=== PATIENT | female | born 1960 | race American Indian/Alaskan Native ===

== ENCOUNTER 2018-07-12 13:50 | Inpatient (IN) | payer OTHER ==
[~2018-07-12 13:50] MED LIST: levoFLOXacin 750 mg in D5W 750 MG/150 ML BAG IVPB ONE
[2018-07-12] MEDS ORDERED: Albuterol-Ipratrop 3 mg / 0.5 (3 ml) UD INH STA (14:29)
--- NOTE | 2018-07-12 14:50 | ED PDOC ---
HPI: General Adult Time Seen by Provider: 07/12/18 13:59 Chief Complaint (Nursing): Shortness Of Breath Chief Complaint (Provider): Medication Refill History Per: EMS Onset/Duration Of Symptoms: Days (x 1) Current Symptoms Are (Timing): Still Present Additional Complaint(s): 58 year old female with a history of CVA, hypertension and anemia presents to the ED via EMS. As per EMS, patient ran out of her albuterol prompting call to EMS. In the ED, patient is arousable to verbal stimuli, but is refusing to answer any questions. Offers no complaints. Pt administered nebulizer treatments and Solumedrol via EMS en route. PMD: none provided e Past Medical History Reviewed: Historical Data, Nursing Documentation, Vital Signs Vital Signs: Last Vital Signs Temp 100.7 F H 07/12/18 14:20 Pulse 96 H 07/12/18 13:53 Resp 16 07/12/18 14:25 BP 129/74 07/12/18 13:53 Pulse Ox 95 07/12/18 14:25 - Medical History PMH: Anemia, Arthritis, Asthma, HTN Denies: Chronic Kidney Disease - Surgical History Surgical History: CABG, Cholecystectomy - Family History Family History: States: Unknown Family Hx - Home Medications Home Medications: Ambulatory Orders Medication Instructions Recorded Aspirin [Aspirin Chewable] 81 mg PO DAILY #0 chew 12/10/15 Baclofen [Lioresal] 20 mg PO TID #0 tab 12/10/15 Gabapentin [Neurontin] 300 mg PO TID #0 cap 12/10/15 Losartan [Cozaar] 25 mg PO DAILY #0 tab 12/10/15 Rosuvastatin Calcium [Crestor] 20 mg PO HS #0 tab 12/10/15 fentaNYL 75 mcg/hr [Duragesic 1 patch TD Q72H #0 patch 12/10/15 Patch 75 mcg/hr] oxyCODONE/Acetaminophen [Percocet 1 tab PO Q8H PRN #0 tab 12/10/15 5/325 mg Tab] - Allergies Allergies/Adverse Reactions: Allergies Allergy/AdvReac Type Severity Reaction Status Date / Time Penicillins Allergy RASH Verified 07/12/18 13:53 latex AdvReac RASH Verified 07/12/18 13:53 Review of Systems Review Of Systems: ROS cannot be obtained secondary to pt's inabilty to answer questions. (patient is uncooperative) Physical Exam - Reviewed Nursing Documentation Reviewed: Yes - Physical Exam Appears: Positive for: No Acute Distress (febrile) Head Exam: Positive for: ATRAUMATIC, NORMAL INSPECTION, NORMOCEPHALIC Skin: Positive for: Normal Color, Warm, Dry. Negative for: Rash Eye Exam: Positive for: EOMI, Normal appearance, PERRL Cardiovascular/Chest: Positive for: Murmur (otherwise regular rate) Respiratory: Positive for: Wheezing (bilateral). Negative for: Respiratory Distress Gastrointestinal/Abdominal: Positive for: Normal Exam, Soft. Negative for: Tenderness Back: Positive for: Normal Inspection. Negative for: L CVA Tenderness, R CVA Tenderness Extremity: Positive for: Normal ROM (upper and lower extremities). Negative for: Deformity, Swelling Neurologic/Psych: Positive for: Alert, Oriented. Negative for: Motor/Sensory Deficits - Laboratory Results Result Diagrams: 07/12/18 15:10 07/12/18 15:10 - ECG ECG Rhythm: Positive for: Atrial Flutter Rate: 91 O2 Sat by Pulse Oximetry: 95 (RA) Pulse Ox Interpretation: Normal Medical Decision Making Medical Decision Makin:59 Impression: fever, possible asthma exacerbation, pneumonia Initial Plan: --VBG --CMP --CBC --CXR --EKG --Urine dip --Duoneb 3 ml INH --Peak flow pre/post --Acetaminophen 650 mg PO --Blood cx --Urine cx --UA Accession No. : [id number] Patient Name / ID : BROWN ALSTON / [id number] Exam Date : 07/12/2018 13:52:33 ( Approved ) Study Comment : Sex / Age : F / 58Y Creator : Cyrus Gutierrez MD Dictator : Cyrus Gutierrez MD Ballet Teacher : Marketing Operations Analyst : Cyrus Gutierrez MD Approver2 : Report Date : 07/12/2018 14:58:29 My Comment : Date of service: 07/12/2018 PROCEDURE: CHEST RADIOGRAPH, 1 VIEW HISTORY: SOB, fever COMPARISON: None available. FINDINGS: LUNGS: Patchy diffuse bilateral pulmonary opacities suspicious for bilateral pneumonia versus pulmonary edema no perihilar distribution. PLEURA: Small right pleural effusion. No evidence of left pleural effusion. CARDIOVASCULAR: Cardiac valvular replacement noted. Normal heart size. There is atherosclerotic calcification of the thoracic aorta. Mild congestive change. OSSEOUS STRUCTURES: No significant abnormalities. VISUALIZED UPPER ABDOMEN: Normal. OTHER FINDINGS: None. IMPRESSION: Patchy diffuse bilateral pulmonary opacity. Possible bilateral pneumonia versus pulmonary edema. Small right pleural effusion. Cardiac valvular replacement. Scribe Attestation: Documented by Jennifer Sosa, acting as a scribe for Nubia Martinez MD Provider Scribe Attestation: All medical record entries made by the Scribe were at my direction and personally dictated by me. I have reviewed the chart and agree that the record accurately reflects my personal performance of the history, physical exam, medical decision making, and the department course for this patient. I have also personally directed, reviewed, and agree with the discharge instructions and disposition. Disposition - Clinical Impression Clinical Impression: Pneumonia, Asthma exacerbation - Patient ED Disposition Is Patient to be Admitted: Yes - Disposition Disposition Time: 16:29 Condition: STABLE Forms: [employer] (Surinamese) - Pt Status Changed To: Hospital Disposition Of: Inpatient - Admit Certification Admit to Inpatient:: After my assessment, the patient will require hospitalization for at least two midnights. This is because of the severity of symptoms shown, intensity of services needed, and/or the medical risk in this patient being treated as an outpatient. - POA Present On Arrival: None
--- NOTE | 2018-07-12 15:02 | RAD ---
Date of service: 07/12/2018 PROCEDURE: CHEST RADIOGRAPH, 1 VIEW HISTORY: SOB, fever COMPARISON: None available. FINDINGS: LUNGS: Patchy diffuse bilateral pulmonary opacities suspicious for bilateral pneumonia versus pulmonary edema no perihilar distribution. PLEURA: Small right pleural effusion. No evidence of left pleural effusion. CARDIOVASCULAR: Cardiac valvular replacement noted. Normal heart size. There is atherosclerotic calcification of the thoracic aorta. Mild congestive change. OSSEOUS STRUCTURES: No significant abnormalities. VISUALIZED UPPER ABDOMEN: Normal. OTHER FINDINGS: None. IMPRESSION: Patchy diffuse bilateral pulmonary opacity. Possible bilateral pneumonia versus pulmonary edema. Small right pleural effusion. Cardiac valvular replacement.
[2018-07-12] MEDS ORDERED: Albuterol-Ipratrop 3 mg / 0.5 (3 ml) UD ONE (15:04)
[2018-07-12 15:18] LABS: VENOUS BLOOD GAS BASE EXCESS 0.8 mmol/L (0.0-2.0); VENOUS BLOOD GAS PCO2 58 mmHg (40-60); VENOUS BLOOD GAS PO2 47 mm/Hg (30-55)
[2018-07-12 15:18] LABS: BASO % 0.1 % (0.0-2.0); EOS % 0.1 % (0.0-4.0); HEMOGLOBIN 10.5 g/dL (12.0-16.0); LYMPH # 0.3 K/uL (1.0-4.3); MEAN CELL VOLUME 76.6 fl (81.0-99.0); MEAN CORPUSCULAR HEMOGLOBIN 24.1 pg (27.0-31.0); MEAN CORPUSCULAR HGB CONC 31.5 g/dL (33.0-37.0); MEAN PLATELET VOLUME 9.5 fl (7.2-11.7); MONO # 0.4 K/uL (0.0-0.8); MONO % 2.2 % (0.0-10.0); NEUT # 15.7 K/uL (1.8-7.0); NEUT % 95.6 % (50.0-75.0); PLATELET COUNT 221 K/uL (130-400); RBC 4.37 Mil/uL (3.80-5.20); RED CELL DISTRIBUTION WIDTH 19.2 % (11.5-14.5); WHITE BLOOD COUNT 16.5 K/uL (4.8-10.8)
[2018-07-12] MEDS ORDERED: levoFLOXacin 750 mg in D5W 150 ML BAG IVPB STA (15:22)
[2018-07-12 15:30] LABS: ALB/GLOB RATIO 0.9 (1.0-2.1); BLOOD UREA NITROGEN 12 mg/dl (7-17); CALCIUM 8.6 mg/dL (8.4-10.2); GFR NON-AFRICAN AMERICAN > 60
[2018-07-12 15:59] LABS: ALT/SGPT < 6 U/L (9-52); AST/SGOT 26 U/L (14-36)
[2018-07-12] MEDS ORDERED: levoFLOXacin 750 mg in D5W 750 MG/150 ML BAG IVPB ONE ×2 (16:54→17:00)
[2018-07-12 18:31] LABS: BANDS 2 % (0-2); LYMPHOCYTE 4 % (20-50); MONOCYTE 3 % (0-10); NEUTROPHIL 91 % (42-75); TOTAL CELLS COUNTED 100
[2018-07-12 18:32] LABS: ANISOCYTOSIS MODERATE; HYPOCHROMIC SLIGHT; MICROCYTOSIS MODERATE; OVALOCYTES SLIGHT; PLATELET ESTIMATE NORMAL (NORMAL); POIKILOCYTOSIS SLIGHT
[2018-07-12 18:40] LABS: VENOUS BLOOD GAS BASE EXCESS -1.4 mmol/L (0.0-2.0); VENOUS BLOOD GAS PCO2 49 mmHg (40-60); VENOUS BLOOD GAS PO2 50 mm/Hg (30-55); VENOUS BLOOD PH 7.32 (7.32-7.43)
[2018-07-12] MEDS ORDERED: Insulin Regular 100 units/ml IV STA (18:41)
[2018-07-12] MEDS ORDERED: Ergocalciferol 50,000 Intl Units Cap PO SCH (21:15)
--- NOTE | 2018-07-13 00:57 | CARD ---
APPROVED REPORT Date of service: 07/12/2018 EKG Measurement Heart [id number] <Conclusion> Atrial flutter with variable AV block Rightward axis Nonspecific ST and T wave abnormality Abnormal ECG
[2018-07-13] MEDS: Albuterol-Ipratrop 3 mg / 0.5 (3 ml) UD INH SCH ×4 (01:00→19:35)
[2018-07-13 05:24] LABS: HEMOGLOBIN 10.1 g/dL (12.0-16.0); MEAN CORPUSCULAR HEMOGLOBIN 24.4 pg (27.0-31.0); MEAN CORPUSCULAR HGB CONC 31.7 g/dL (33.0-37.0); RBC 4.12 Mil/uL (3.80-5.20); RED CELL DISTRIBUTION WIDTH 19.7 % (11.5-14.5); WHITE BLOOD COUNT 10.9 K/uL (4.8-10.8)
[2018-07-13 05:41] LABS: BLOOD UREA NITROGEN 13 mg/dl (7-17); CALCIUM 9.1 mg/dL (8.4-10.2); GFR NON-AFRICAN AMERICAN > 60
[2018-07-13] MEDS ORDERED: Patient's Own Med (Metformin Er [Glucophage Xr] 500 mg) PO SCH (09:00)
[2018-07-13] MEDS ORDERED: Oxycodone/Acetaminophen 5/325 mg Tab PO PRN (09:38)
[2018-07-13] MEDS: Potassium Chloride 10 mEq ER Tab PO SCH (10:00)
[2018-07-13] MEDS: Enoxaparin 40 mg Syringe SC SCH (10:03)
[2018-07-13] MEDS: levoFLOXacin 500 mg in D5W 500 MG/100 ML BAG IVPB SCH (10:39)
[2018-07-13 15:07] LABS: SQUAMOUS EPITHIAL 3 /hpf (0-5); URINE BACTERIA FEW (<OCC); URINE BILIRUBIN NEGATIVE (NEGATIVE); URINE BLOOD NEGATIVE (NEGATIVE); URINE CLARITY SLIGHTY-CLOUDY (Clear); URINE COLOR YELLOW (YELLOW); URINE GLUCOSE (UA) 50 mg/dL (NEGATIVE); URINE LEUKOCYTE ESTERASE NEG Leu/uL (Negative); URINE PROTEIN 30 mg/dL (NEGATIVE)
--- NOTE | 2018-07-13 21:34 | HP ---
ADMITTING HISTORY AND PHYSICAL HISTORY OF PRESENT ILLNESS: Ms. Landis is a 58-year-old female who was admitted via the emergency room. The patient was brought in by EMS. She was complaining of some shortness of breath and chest tightness. She indicates that she has been sick for few days prior to presentation. Lives at home with her son, but did not want to tell her son that she was sick. Also had visited her primary care physician recently in [place], but then was not ill. PAST MEDICAL HISTORY: She has a past medical history of anemia, arthritis, asthma, hypertension, and status post cerebrovascular accident with right-sided hemiparesis. She also has history of coronary artery bypass graft and cholecystectomy. FAMILY HISTORY: Unremarkable. PHYSICAL EXAMINATION: GENERAL: The patient is alert, oriented to person, place, and time. VITAL SIGNS: Blood pressure 129/74, pulse of 96, respiratory rate 16. She is afebrile at present but temperature maximum on admission was 100.7 degrees Fahrenheit. O2 saturation is 95% on nasal cannula oxygen. SKIN: Shows fair turgor. HEENT: Pupils are equal and reactive to light and accommodation. Mouth shows fair hygiene. LUNGS: Bilateral mild wheezing and basilar rales. There is scar present of coronary artery bypass graft to the anterior chest wall. HEART: Regular. BREASTS: Normal. ABDOMEN: Soft, nontender. No organomegaly. EXTREMITIES: Show no edema or cyanosis. Has complete right-sided hemiparesis. CENTRAL NERVOUS SYSTEM: The patient is alert and oriented x3. Except for the right hemiparesis, no gross deficits. LABORATORY DATA: Remarkable for chest x-ray showing bilateral pulmonary infiltrates. WBC 16.5, hemoglobin 10.5, platelet count 221,000. Sodium 135, potassium 4.2, BUN 12, creatinine 0.6, serum glucose 293. Arterial blood gas; pH 7.30, pCO2 of 47, O2 saturation 92.6. Lactate 2.5, repeat 2.2. IMPRESSION: Bilateral pneumonia, probably community acquired; history of cerebrovascular accident; history of diabetes mellitus, poorly controlled, type 2; history of hypertension; history of asthma. PLAN: Intravenous antibiotics, septic workup. We will repeat the lactate level to evaluate for sepsis. Physical therapy evaluation for discharge planning and physical therapy. We will continue therapy as ordered. Monitor blood sugar closely. Further therapy will depend on findings. Saad Grier MD [facility] # [id number]
[2018-07-14 00:21] VITALS: RESP 18
[2018-07-14] MEDS: Albuterol-Ipratrop 3 mg / 0.5 (3 ml) UD INH SCH ×3 (02:09→13:33)
[2018-07-14] MEDS: Enoxaparin 40 mg Syringe SC SCH (09:44)
[2018-07-14] MEDS: Potassium Chloride 10 mEq ER Tab PO SCH (09:47)
[2018-07-14] MEDS: levoFLOXacin 500 mg in D5W 500 MG/100 ML BAG IVPB SCH (09:49)
--- NOTE | 2018-07-14 11:26 | CP.PCM.DIS ---
Provider - Provider Date of Admission: 07/12/18 16:24 Attending physician: Saad Grier MD Time Spent in preparation of Discharge (in minutes): 35 Diagnosis - Discharge Diagnosis (1) History of CVA (cerebrovascular accident) Status: Chronic Comment: R HEMIPLEGIA PERSISTS. WILL NEED OUT PT PHYSICAL AND OCCUPATIONAL THERAPY. REFUSES SUBACUTE CARE (2) History of CVA with residual deficit Status: Acute (3) Asthma exacerbation Status: Acute Comment: RESOLVED WITH BRONCHODILATOR RX (4) Pneumonia Status: Acute Comment: NO COUGH/CHEST PAINS OR SOB. CXR--IMPROVEMENT OF PULMONARY INFILTERATES. WILL D/C HOME ON PO ANTIBIOTICS X 1 WEEK. FOLLOW UP WITH PMD AND TO HAVE CXR REPEATED IN 2 WEEKS AFTER RX (5) Diabetes 1.5, managed as type 2 Status: Chronic Priority: Low (6) Chronic pain Status: Chronic Priority: Low Hospital Course - Lab Results Lab Results: Micro Results 07/12/18 15:00 Blood-Venous Blood Culture - Preliminary NO GROWTH AFTER 24 HOURS 07/12/18 14:30 Blood-Venous Blood Culture - Preliminary NO GROWTH AFTER 24 HOURS Most Recent Lab Values WBC 10.9 K/uL (4.8-10.8) H 07/13/18 04:20 RBC 4.12 Mil/uL (3.80-5.20) 07/13/18 04:20 Hgb 10.1 g/dL (12.0-16.0) L 07/13/18 04:20 Hct 31.8 % (34.0-47.0) L 07/13/18 04:20 MCV 77.0 fl (81.0-99.0) L 07/13/18 04:20 MCH 24.4 pg (27.0-31.0) L 07/13/18 04:20 MCHC 31.7 g/dL (33.0-37.0) L 07/13/18 04:20 RDW 19.7 % (11.5-14.5) H 07/13/18 04:20 Plt Count 198 K/uL (130-400) 07/13/18 04:20 MPV 9.5 fl (7.2-11.7) 07/12/18 15:10 Neut % (Auto) 95.6 % (50.0-75.0) H 07/12/18 15:10 Lymph % (Auto) 2.0 % (20.0-40.0) L 07/12/18 15:10 [place] % (Auto) 2.2 % (0.0-10.0) 07/12/18 15:10 Eos % (Auto) 0.1 % (0.0-4.0) 07/12/18 15:10 Baso % (Auto) 0.1 % (0.0-2.0) 07/12/18 15:10 Neut # (Auto) 15.7 K/uL (1.8-7.0) H 07/12/18 15:10 Lymph # (Auto) 0.3 K/uL (1.0-4.3) L 07/12/18 15:10 [place] # (Auto) 0.4 K/uL (0.0-0.8) 07/12/18 15:10 Eos # (Auto) 0.0 K/uL (0.0-0.7) 07/12/18 15:10 Baso # (Auto) 0.0 K/uL (0.0-0.2) 07/12/18 15:10 Neutrophils % (Manual) 91 % (42-75) H 07/12/18 15:10 Band Neutrophils % 2 % (0-2) 07/12/18 15:10 Lymphocytes % (Manual) 4 % (20-50) L 07/12/18 15:10 Monocytes % (Manual) 3 % (0-10) 07/12/18 15:10 Platelet Estimate Normal (NORMAL) 07/12/18 15:10 Hypochromasia (manual) Slight 07/12/18 15:10 Poikilocytosis (manual Slight 07/12/18 15:10 Anisocytosis (manual) Moderate 07/12/18 15:10 Microcytosis (manual) Moderate 07/12/18 15:10 Ovalocytes Slight 07/12/18 15:10 pO2 50 mm/Hg (30-55) 07/12/18 18:30 VBG pH 7.32 (7.32-7.43) 07/12/18 18:30 VBG pCO2 49 mmHg (40-60) 07/12/18 18:30 VBG HCO3 23.4 mmol/L 07/12/18 18:30 VBG Total CO2 26.7 mmol/L (22-28) 07/12/18 18:30 VBG O2 Sat (Calc) 88.2 % (40-65) H 07/12/18 18:30 VBG Base Excess -1.4 mmol/L (0.0-2.0) L 07/12/18 18:30 VBG Potassium 3.7 mmol/L (3.6-5.2) 07/12/18 18:30 Sodium 125.0 mmol/L (132-148) L 07/12/18 18:30 Chloride 95.0 mmol/L (98-107) L 07/12/18 18:30 Glucose 647 mg/dL (65-105) H* D 07/12/18 18:30 Lactate 2.2 mmol/L (0.7-2.1) H 07/12/18 18:30 FiO2 21.0 % 07/12/18 18:30 Crit Value Called To floresita Martinez 07/12/18 18:30 Crit Value Called By Madi delgado 07/12/18 18:30 Crit Value Read Back Y 07/12/18 18:30 Blood Gas Notified Time 1840 07/12/18 18:30 Sodium 140 mmol/l (132-148) 07/13/18 04:20 Potassium 4.5 MMOL/L (3.6-5.0) 07/13/18 04:20 Chloride 98 mmol/L (98-107) 07/13/18 04:20 Carbon Dioxide 30 mmol/L (22-30) 07/13/18 04:20 Anion Gap 17 (10-20) 07/13/18 04:20 BUN 13 mg/dl (7-17) 07/13/18 04:20 Creatinine 0.7 mg/dl (0.7-1.2) 07/13/18 04:20 Est GFR ( Amer) > 60 07/13/18 04:20 Est GFR (Non-Af Amer) > 60 07/13/18 04:20 POC Glucose (mg/dL) 137 mg/dL (65-110) H 07/14/18 11:06 Random Glucose 195 mg/dL (65-105) H 07/13/18 04:20 Calcium 9.1 mg/dL (8.4-10.2) 07/13/18 04:20 Total Bilirubin 1.9 mg/dl (0.2-1.3) H 07/12/18 15:10 AST 26 U/L (14-36) 07/12/18 15:10 ALT < 6 U/L (9-52) L 07/12/18 15:10 Alkaline Phosphatase 102 U/L (38-126) 07/12/18 15:10 Total Protein 8.6 G/DL (6.3-8.2) H 07/12/18 15:10 Albumin 4.0 g/dL (3.5-5.0) 07/12/18 15:10 Globulin 4.6 gm/dL (2.2-3.9) H 07/12/18 15:10 Albumin/Globulin Ratio 0.9 (1.0-2.1) L 07/12/18 15:10 Venous Blood Potassium 3.7 mmol/L (3.6-5.2) 07/12/18 18:30 Urine Color Yellow (YELLOW) 07/13/18 14:50 Urine Clarity Slighty-cloudy (Clear) 07/13/18 14:50 Urine pH 5.0 (5.0-8.0) 07/13/18 14:50 Ur Specific [place] 1.018 (1.003-1.030) 07/13/18 14:50 Urine Protein 30 mg/dL (NEGATIVE) 07/13/18 14:50 Urine Glucose (UA) 50 mg/dL (NEGATIVE) 07/13/18 14:50 Urine Ketones Negative mg/dL (NEGATIVE) 07/13/18 14:50 Urine Blood Negative (NEGATIVE) 07/13/18 14:50 Urine Nitrate Negative (NEGATIVE) 07/13/18 14:50 Urine Bilirubin Negative (NEGATIVE) 07/13/18 14:50 Urine Urobilinogen 2.0 mg/dL (0.2-1.0) H 07/13/18 14:50 Ur Leukocyte Esterase Neg Brittney/uL (Negative) 07/13/18 14:50 Urine RBC (Auto) 2 /hpf (0-3) 07/13/18 14:50 Urine Microscopic WBC 5 /hpf (0-5) 07/13/18 14:50 Ur Squamous Epith Cells 3 /hpf (0-5) 07/13/18 14:50 Urine Bacteria Few (<OCC) H 07/13/18 14:50 - Hospital Course Hospital Course: FEELS BETTER SOB/COUGH RESOLVED WILL D/C HOME TODAY Discharge Exam - Head Exam Head Exam: ATRAUMATIC, NORMAL INSPECTION, NORMOCEPHALIC - Eye Exam Eye Exam: EOMI, Normal appearance, PERRL Pupil Exam: NORMAL ACCOMODATION, PERRL - GI/Abdominal Exam GI & Abdominal Exam: Normal Bowel Sounds - Rectal Exam Rectal Exam: NORMAL INSPECTION - Neurological Exam Neurological exam: Alert, CN II-XII Intact, Oriented x3, Reflexes Normal Additional comments: R HEMIPLEGIA - Psychiatric Exam Psychiatric exam: Normal Affect, Normal Mood - Skin Skin Exam: Dry, Intact, Normal Color, Warm Discharge Plan - Follow Up Plan Condition: STABLE Disposition: HOME/ ROUTINE Additional Instructions: D/C HOME TODAY ON ORAL LEVAQUIN X 1 WEEK
--- NOTE | 2018-07-14 11:31 | RAD ---
Date of service: 07/14/2018 PROCEDURE: CHEST RADIOGRAPH, 1 VIEW HISTORY: PNEUMONIA COMPARISON: 07/12/2018 FINDINGS: LUNGS: Patchy diffuse right pulmonary opacity unchanged from previous. Left-sided opacity appears to have markedly resolved. PLEURA: No pneumothorax or pleural fluid seen. CARDIOVASCULAR: No aortic atherosclerotic calcification present. Sternotomy wires. Normal heart size. OSSEOUS STRUCTURES: No significant abnormalities. VISUALIZED UPPER ABDOMEN: Normal. OTHER FINDINGS: None. IMPRESSION: Persistent patchy right-sided pulmonary opacity. Resolved left-sided pulmonary opacity. No pleural effusion.
[2018-07-14 12:30] VITALS: BP 107/67; PULSE 62; TEMP 98.1; O2SAT 100
== END 2018-07-14 15:58 | disposition home health service (06) | DRG 194 ==
LOC: H.ER 13:50 → H.ERHOLD 16:24 → H.TEL 18:43
PROVIDERS: ADMIT Internal Medicine Pulmonary Disease; ATTEND Internal Medicine Pulmonary Disease
PROC: 3E0F7GC Introduction of Other Therapeutic Substance into Respiratory Tract, Via Natural or Artificial Opening (ICD-10-PCS; principal; 2018-07-13)
DX: J18.9 Pneumonia, unspecified organism (principal); J45.901 Unspecified asthma with (acute) exacerbation; I69.351 Hemiplegia and hemiparesis following cerebral infarction affecting right dominant side; Z79.82 Long term (current) use of aspirin; Z95.1 Presence of aortocoronary bypass graft; D64.9 Anemia, unspecified; M19.90 Unspecified osteoarthritis, unspecified site; Z79.899 Other long term (current) drug therapy; E11.9 Type 2 diabetes mellitus without complications; G89.29 Other chronic pain; I10 Essential (primary) hypertension

== ENCOUNTER 2018-07-29 13:26 | Inpatient (IN) | payer OTHER ==
[2018-07-29] MEDS ORDERED: Naloxone 0.4 mg/ml Inj (Adult) IVP STA ×2 (13:49→21:21)
[2018-07-29 13:50] LABS: ABG ALLEN TEST YES; ARTERIAL BLOOD GAS HCO3 18.9 mmol/L (21-28); ARTERIAL BLOOD GAS O2 SAT 88.8 % (95-98); ARTERIAL BLOOD GAS PCO2 39 mm/Hg (35-45); ARTERIAL BLOOD GAS PH 7.29 (7.35-7.45); ARTERIAL BLOOD GAS PO2 50 mm/Hg (80-100)
[2018-07-29 13:53] LABS: BASO # 0.1 K/uL (0.0-0.2); BASO % 0.2 % (0.0-2.0); HEMOGLOBIN 10.5 g/dL (12.0-16.0); LYMPH # 1.1 K/uL (1.0-4.3); LYMPH % 4.4 % (20.0-40.0); MEAN CELL VOLUME 80.4 fl (81.0-99.0); MEAN CORPUSCULAR HEMOGLOBIN 24.2 pg (27.0-31.0); MEAN CORPUSCULAR HGB CONC 30.1 g/dL (33.0-37.0); MEAN PLATELET VOLUME 8.2 fl (7.2-11.7); MONO # 1.8 K/uL (0.0-0.8); MONO % 7.4 % (0.0-10.0); NEUT # 21.8 K/uL (1.8-7.0); NRBC % 0.1 % (0.0-0.0); PLATELET COUNT 140 K/uL (130-400); RBC 4.31 Mil/uL (3.80-5.20); RED CELL DISTRIBUTION WIDTH 20.1 % (11.5-14.5); WHITE BLOOD COUNT 24.8 K/uL (4.8-10.8)
--- NOTE | 2018-07-29 13:59 | ED PDOC ---
HPI: Altered Mental Status Time Seen by Provider: 07/29/18 13:36 Chief Complaint (Nursing): Altered Mental Status Chief Complaint (Provider): Altered Mental Status History Per: EMS History/Exam Limitations: Clinical Condition Onset Of Symptoms: <3 Hours Additional Complaint(s): Maritza Landis is a 58 year old female with a past medical history of HTN, stroke, CABG, CA, diabetes and anemia, who presents to the emergency department accompanied with EMS after patient was found unconscious at home. Patient used heroine and was found unresponsive by family members, who called 911. En route, EMS administered 2mg of Narcan nasally and 0.4 mg intravenously. Patient was also given 2 AMPs of D50. Her initial sugar was 29 and her accucheck in the ER room was 138. Of note, patient was admitted on July 12 for asthma exacerbation. PMD: no provider Past Medical History Reviewed: Historical Data, Nursing Documentation, Vital Signs Vital Signs: Last Vital Signs Temp Pulse 94 H 07/29/18 13:38 Resp 22 07/29/18 13:38 BP 109/48 L 07/29/18 13:38 Pulse Ox - Medical History PMH: Anemia, Arthritis, Asthma, CVA, Diabetes, HTN Denies: Chronic Kidney Disease Other PMH: CA - Surgical History Surgical History: CABG, Cholecystectomy - Family History Family History: States: Unknown Family Hx - Home Medications Home Medications: Ambulatory Orders Medication Instructions Recorded Albuterol Sulfate [Proair Hfa] 2 puff IH Q6 PRN 07/12/18 Aspirin [Ecotrin] 81 mg PO DAILY 07/12/18 Atorvastatin [Lipitor] 40 mg PO DAILY 07/12/18 Baclofen [Lioresal] 20 mg PO Q8 07/12/18 DULoxetine [Cymbalta] 60 mg PO DAILY 07/12/18 Docusate [Colace] 200 mg PO HS 07/12/18 Ergocalciferol (Vitamin D2) 50,000 unit PO QWK 07/12/18 [Vitamin D2] Furosemide [Lasix] 10 mg PO DAILY 07/12/18 MetFORMIN ER [Glucophage XR] 500 mg PO DAILY 07/12/18 Potassium Chloride [Klor-Con 10] 10 meq PO DAILY 07/12/18 Pregabalin [Lyrica] 200 mg PO Q8 07/12/18 fentaNYL 100mcg/hr [Duragesic 1 patch TD Q72H 07/12/18 Patch 100mcg/hr] Levofloxacin [Levaquin] 500 mg PO DAILY #7 tablet 07/14/18 - Allergies Allergies/Adverse Reactions: Allergies Allergy/AdvReac Type Severity Reaction Status Date / Time Penicillins Allergy RASH Verified 07/12/18 13:53 latex AdvReac RASH Verified 07/12/18 13:53 Review of Systems ROS Statement: Except As Marked, All Systems Reviewed And Found Negative Neurological: Positive for: Altered Mental Status, Other (Unconscious; unresponsive ) Physical Exam - Reviewed Nursing Documentation Reviewed: Yes Vital Signs Reviewed: Yes - Physical Exam Head Exam: Positive for: ATRAUMATIC, NORMOCEPHALIC Skin: Positive for: Diaphoresis Eye Exam: Positive for: PERRL, Other (dilated and equal bilaterally ) ENT: Positive for: Other (yellow frothy sputum discharge from mouth) Cardiovascular/Chest: Positive for: Other (midline CABG scar) Respiratory: Positive for: Rhonchi, Respiratory Distress (mild). Negative for: Normal Breath Sounds (coarse breath sounds bilaterally ) Gastrointestinal/Abdominal: Positive for: Normal Exam. Negative for: Tenderness Extremity: Negative for: Deformity, Swelling, Other (peripheral edema) Neurologic/Psych: Positive for: Alert (awake), Other (responsive to stimuli ) - Laboratory Results Result Diagrams: 07/29/18 13:48 07/29/18 13:48 Lab Results: pCO2 39 mm/Hg (35-45) 07/29/18 13:36 pO2 50 mm/Hg (80-100) L 07/29/18 13:36 HCO3 18.9 mmol/L (21-28) L 07/29/18 13:36 ABG pH 7.29 (7.35-7.45) L 07/29/18 13:36 ABG Total CO2 20.0 mmol/L (22-28) L 07/29/18 13:36 ABG O2 Saturation 88.8 % (95-98) L 07/29/18 13:36 ABG Base Excess -7.3 mmol/L (-2.0-3.0) L 07/29/18 13:36 [place]aine Test Yes 07/29/18 13:36 ABG Potassium 4.1 mmol/L (3.6-5.2) 07/29/18 13:36 A-a O2 Difference 51.0 mm/Hg 07/29/18 13:36 Sodium 137.0 mmol/L (132-148) 07/29/18 13:36 Chloride 105.0 mmol/L (98-107) 07/29/18 13:36 Glucose 210 mg/dL (65-105) H 07/29/18 13:36 Lactate 6.8 mmol/L (0.7-2.1) H* 07/29/18 13:36 FiO2 21.0 % 07/29/18 13:36 Blood Gas Comments Ra 21 07/29/18 13:36 Crit Value Called To Dr sherrill lawson m.d. 07/29/18 13:36 Crit Value Called By Dariana 07/29/18 13:36 Crit Value Read Back Y 07/29/18 13:36 Blood Gas Notified Time 1350 07/29/18 13:36 Medical Decision Making Medical Decision Making: Time: 1334 Impression: Altered mental status due to drug overdose, possible aspiration, pneumonia Plan: --CT head without contrast --Chest xray portable --EKG --Alcohol serum --ABG shock panel --CMP --ProBNP --Troponin I --Urine drug screen --CBC with differential --Narcan 0.4 mg IVP Scribe Attestation: Documented by Leif Gregorio, acting as a scribe for Sherrill Lawson MD. Provider Scribe Attestation: All medical record entries made by the Scribe were at my direction and personally dictated by me. I have reviewed the chart and agree that the record accurately reflects my personal performance of the history, physical exam, medical decision making, and the department course for this patient. I have also personally directed, reviewed, and agree with the discharge instructions and disposition. case d/w Dr. Jerome for ICU bed consult. Case d/w Dr. Tej Hardy for medical service admission. Patient accepted. Bed disposition pending Dr. Jerome's evaluation. Disposition - Clinical Impression Clinical Impression: Sepsis - Patient ED Disposition Is Patient to be Admitted: Transfer of Care Doctor Will See Patient In The: Hospital - Disposition Disposition: Transfer of Care Disposition Time: 14:51 Condition: CRITICAL Instructions: Sepsis in Adults Forms: [facility] (Malay) Patient Signed Over To: Owen Marr Present On Arrival: None
[2018-07-29] MEDS ORDERED: Dextrose 5%/0.45% NS 1,000 ML IV SCH ×2 (14:00→19:00)
--- NOTE | 2018-07-29 14:03 | RAD ---
Date of service: 07/29/2018 HISTORY: cough COMPARISON: 07/14/2018. FINDINGS: LUNGS: Interval improvement in right lung infiltrate. PLEURA: No significant pleural effusion identified, no pneumothorax apparent. CARDIOVASCULAR: No atherosclerotic calcification present No radiographic findings to suggest acute or significant cardiovascular disease. Incidental Finding(s): Postoperative changes related to sternotomy. OSSEOUS STRUCTURES: No significant abnormalities. VISUALIZED UPPER ABDOMEN: Normal. OTHER FINDINGS: None. IMPRESSION: No active disease. Resolved right lower lobe infiltrate.
[2018-07-29] MEDS ORDERED: Gentamicin 80 mg/2mL Inj. IVPB STA (14:15)
[2018-07-29 14:23] LABS: ALBUMIN 3.8 g/dL (3.5-5.0); ALT/SGPT 1303 U/L (9-52); B-TYPE NATRIURETIC PEPTIDE 2820 pg/ml (0-900); BLOOD UREA NITROGEN 22 mg/dl (7-17); CALCIUM 8.7 mg/dL (8.4-10.2); GFR NON-AFRICAN AMERICAN 23
[2018-07-29] MEDS ORDERED: Aztreonam 1 GM in Sodium Chloride 0.9% 100 ML IVPB STA (14:26)
[2018-07-29 14:30] LABS: AST/SGOT 1555 U/L (14-36)
[2018-07-29] MEDS ORDERED: Vancomycin 1 g Inj ONE (14:35)
[2018-07-29 14:52] LABS: VENOUS BLOOD GAS PCO2 80 mmHg (40-60); VENOUS BLOOD GAS PO2 21 mm/Hg (30-55)
[2018-07-29 15:06] LABS: INR 1.9; PROTHROMBIN TIME 21.5 Seconds (9.8-13.1); SQUAMOUS EPITHIAL 2 /hpf (0-5); URINE AMORPHOUS SEDIMENT FEW /ul (<OCC); URINE BACTERIA OCC (<OCC); URINE BILIRUBIN NEGATIVE (NEGATIVE); URINE BLOOD MODERATE (NEGATIVE); URINE CLARITY TURBID (Clear); URINE COLOR AMBER (YELLOW); URINE GLUCOSE (UA) NEG (NEGATIVE); URINE LEUKOCYTE ESTERASE NEG Leu/uL (Negative); URINE PROTEIN 100 mg/dL (NEGATIVE)
[2018-07-29 15:07] LABS: LYMPHOCYTE 10 % (20-50); MONOCYTE 7 % (0-10); NEUTROPHIL 83 % (42-75); PLATELET ESTIMATE SLIGHTLY DECREASED (NORMAL); TOTAL CELLS COUNTED 100
[2018-07-29 15:08] LABS: PARTIAL THROMBOPLASTIN TIME 44.5 Seconds (25.6-37.1)
[2018-07-29 15:08] LABS: ANISOCYTOSIS MODERATE; HYPOCHROMIC SLIGHT; LARGE PLATELETS PRESENT; MICROCYTOSIS SLIGHT; OVALOCYTES MODERATE; POIKILOCYTOSIS SLIGHT; TEARDROP CELLS SLIGHT
[2018-07-29 15:13] LABS: OPIATES, UR NEGATIVE (NEGATIVE)
[2018-07-29 15:14] LABS: BARBITURATES, UR NEGATIVE (NEGATIVE); BENZODIAZEPINES, UR NEGATIVE (NEGATIVE); PHENCYCLIDINE, UR NEGATIVE (NEGATIVE)
--- NOTE | 2018-07-29 16:08 | CP.PCM.CON ---
History of Present Illness - History of Present Illness History of Present Illness: 58 YOF was brought to ER as she was unresponsive at home. Her son called EMT and pt had BS 29,, she was given D50, blood sugar improved and pt was more awake but still lethargic. As per ER documents, pt told EMT she used heroin and she was given IV narcain also. In Er pt had fever 10o., she had diarrhea , BP was not low and she was not tachy and was not in any resp distress. SHe has leukocytosis, and Lactic acis was 6.4 and then increased to 8. This patient has h/o CVA, CAD and asthma and was discharged from [facility] on 07/13 a fter treated for PNA and exacerbation of Asthma. In ER pt was sleepy but would response by opening her eyes on verbal command. She has two lose BM in ER, but as per family hs no diarrhea at home. Review of Systems - Review of Systems Systems not reviewed;Unavailable: Unstable Vital Signs, Altered Mental Status - Constitutional Constitutional: Lethargy, Malaise - Cardiovascular Cardiovascular: As Per HPI - Respiratory Respiratory: As Per HPI - Gastrointestinal Gastrointestinal: Diarrhea Past Patient History - Past Medical History & Family History Past Medical History?: Yes - Past Social History Smoking Status: Never Smoked - CARDIAC Hx Cardiac Disorders: Yes Hx Hypertension: Yes - PULMONARY Hx Asthma: Yes - NEUROLOGICAL Hx Neurological Disorder: Yes HX Cerebrovascular Accident: Yes - HEENT Hx HEENT Problems: Yes Hx Cataracts: Yes - RENAL Hx Chronic Kidney Disease: No - ENDOCRINE/METABOLIC Hx Endocrine Disorders: No - HEMATOLOGICAL/ONCOLOGICAL Hx Anemia: Yes - INTEGUMENTARY Hx Dermatological Problems: No - MUSCULOSKELETAL/RHEUMATOLOGICAL Hx Arthritis: Yes - GASTROINTESTINAL Hx Constipation: Yes - GENITOURINARY/GYNECOLOGICAL Hx Genitourinary Disorders: No - PSYCHIATRIC Hx Substance Use: Yes - SURGICAL HISTORY Hx Cholecystectomy: Yes Hx Coronary Artery Bypass Graft: Yes - ANESTHESIA Hx Anesthesia: Yes Hx Anesthesia Reactions: No Meds Allergies/Adverse Reactions: Allergies Allergy/AdvReac Type Severity Reaction Status Date / Time Penicillins Allergy RASH Verified 07/12/18 13:53 latex AdvReac RASH Verified 07/12/18 13:53 Physical Exam - Constitutional Appears: Combative - Head Exam Head Exam: ATRAUMATIC - Eye Exam Pupil Exam: PERRL - ENT Exam ENT Exam: Normal Exam - Neck Exam Neck exam: Positive for: Normal Inspection - Respiratory Exam Respiratory Exam: Rales - Cardiovascular Exam Cardiovascular Exam: REGULAR RHYTHM - GI/Abdominal Exam GI & Abdominal Exam: Soft - Extremities Exam Extremities exam: Positive for: normal inspection - Back Exam Back exam: NORMAL INSPECTION Results - Vital Signs Recent Vital Signs: Last Vital Signs Temp 101.3 F H 07/29/18 14:50 Pulse 83 07/29/18 15:49 Resp 22 07/29/18 15:49 BP 102/71 07/29/18 15:49 Pulse Ox 100 07/29/18 15:49 - Labs Result Diagrams: 07/29/18 13:48 07/29/18 13:48 Labs: Laboratory Results - last 24 hr 07/29/18 07/29/18 07/29/18 13:36 13:48 13:48 WBC 24.8 H D RBC 4.31 Hgb 10.5 L Hct 34.7 MCV 80.4 L D MCH 24.2 L MCHC 30.1 L RDW 20.1 H Plt Count 140 MPV 8.2 Neut % (Auto) 88.0 H Lymph % (Auto) 4.4 L [place] % (Auto) 7.4 Eos % (Auto) 0.0 Baso % (Auto) 0.2 Neut # (Auto) 21.8 H Lymph # (Auto) 1.1 [place] # (Auto) 1.8 H Eos # (Auto) 0.0 Baso # (Auto) 0.1 Neutrophils % (Manual) 83 H Lymphocytes % (Manual) 10 L Monocytes % (Manual) 7 Platelet Estimate Slightly decreased L Large Platelets Present Hypochromasia (manual) Slight Poikilocytosis (manual Slight Anisocytosis (manual) Moderate Microcytosis (manual) Slight Macrocytosis (manual) Slight Tear Drop Cells Slight Ovalocytes Moderate PT INR APTT pCO2 39 pO2 50 L HCO3 18.9 L ABG pH 7.29 L ABG Total CO2 20.0 L ABG O2 Saturation 88.8 L ABG Base Excess -7.3 L Blaine Test Yes ABG Potassium 4.1 VBG pH VBG pCO2 VBG HCO3 VBG Total CO2 VBG O2 Sat (Calc) VBG Base Excess VBG Potassium A-a O2 Difference 51.0 Sodium 137.0 143 Chloride 105.0 101 Glucose 210 H Lactate 6.8 H* FiO2 21.0 Blood Gas Comments Ra 21 Crit Value Called To Dr myra lawson m.d. Crit Value Called By Dariana Crit Value Read Back Y Blood Gas Notified Time 1350 Potassium 4.1 Carbon Dioxide 22 Anion Gap 24 H BUN 22 H Creatinine 2.2 H Est GFR ( Amer) 28 Est GFR (Non-Af Amer) 23 Random Glucose 147 H Calcium 8.7 Phosphorus Magnesium Total Bilirubin 2.5 H AST 1555 H ALT 1303 H Alkaline Phosphatase 127 H D Troponin I 0.2710 H* NT-Pro-B Natriuret Pep 2820 H Total Protein 7.5 Albumin 3.8 Globulin 3.8 Albumin/Globulin Ratio 1.0 Arterial Blood Potassium 4.1 Venous Blood Potassium Urine Color Urine Clarity Urine pH Ur Specific [place] Urine Protein Urine Glucose (UA) Urine Ketones Urine Blood Urine Nitrate Urine Bilirubin Urine Urobilinogen Ur Leukocyte Esterase Urine RBC (Auto) Urine Microscopic WBC Ur Squamous Epith Cells Amorphous Sediment Urine Bacteria Hyaline Casts Urine Opiates Screen Urine Methadone Screen Ur Barbiturates Screen Ur Phencyclidine Scrn Ur Amphetamines Screen U Benzodiazepines Scrn U Oth Cocaine Metabols U Cannabinoids Screen Alcohol, Quantitative < 10 07/29/18 07/29/18 07/29/18 14:29 14:50 14:50 WBC RBC Hgb Hct MCV MCH MCHC RDW Plt Count MPV Neut % (Auto) Lymph % (Auto) [place] % (Auto) Eos % (Auto) Baso % (Auto) Neut # (Auto) Lymph # (Auto) [place] # (Auto) Eos # (Auto) Baso # (Auto) Neutrophils % (Manual) Lymphocytes % (Manual) Monocytes % (Manual) Platelet Estimate Large Platelets Hypochromasia (manual) Poikilocytosis (manual Anisocytosis (manual) Microcytosis (manual) Macrocytosis (manual) Tear Drop Cells Ovalocytes PT INR APTT pCO2 pO2 21 L HCO3 ABG pH ABG Total CO2 ABG O2 Saturation ABG Base Excess Blaine Test ABG Potassium VBG pH 7.10 L* VBG pCO2 80 H* VBG HCO3 18.6 VBG Total CO2 27.3 VBG O2 Sat (Calc) 26.8 L VBG Base Excess -6.0 L VBG Potassium 4.1 A-a O2 Difference Sodium 142.0 Chloride 105.0 Glucose 141 H Lactate 8.5 H* FiO2 28.0 Blood Gas Comments Crit Value Called To Dr myra lawson m.d. Crit Value Called By Dariana Crit Value Read Back Y Blood Gas Notified Time 1452 Potassium Carbon Dioxide Anion Gap BUN Creatinine Est GFR ( Amer) Est GFR (Non-Af Amer) Random Glucose Calcium Phosphorus Magnesium Total Bilirubin AST ALT Alkaline Phosphatase Troponin I NT-Pro-B Natriuret Pep Total Protein Albumin Globulin Albumin/Globulin Ratio Arterial Blood Potassium Venous Blood Potassium 4.1 Urine Color [place]illa Urine Clarity Turbid Urine pH 6.0 Ur Specific [place] 1.013 Urine Protein 100 Urine Glucose (UA) Neg Urine Ketones Negative Urine Blood Moderate Urine Nitrate Negative Urine Bilirubin Negative Urine Urobilinogen 4.0 H Ur Leukocyte Esterase Neg Urine RBC (Auto) 6 H Urine Microscopic WBC 4 Ur Squamous Epith Cells 2 Amorphous Sediment Few H Urine Bacteria Occ H Hyaline Casts 11-20 H Urine Opiates Screen Negative Urine Methadone Screen Negative Ur Barbiturates Screen Negative Ur Phencyclidine Scrn Negative Ur Amphetamines Screen Negative U Benzodiazepines Scrn Negative U Oth Cocaine Metabols Negative U Cannabinoids Screen Negative Alcohol, Quantitative 07/29/18 07/29/18 14:50 14:50 WBC RBC Hgb Hct MCV MCH MCHC RDW Plt Count MPV Neut % (Auto) Lymph % (Auto) [place] % (Auto) Eos % (Auto) Baso % (Auto) Neut # (Auto) Lymph # (Auto) [place] # (Auto) Eos # (Auto) Baso # (Auto) Neutrophils % (Manual) Lymphocytes % (Manual) Monocytes % (Manual) Platelet Estimate Large Platelets Hypochromasia (manual) Poikilocytosis (manual Anisocytosis (manual) Microcytosis (manual) Macrocytosis (manual) Tear Drop Cells Ovalocytes PT 21.5 H INR 1.9 APTT 44.5 H pCO2 pO2 HCO3 ABG pH ABG Total CO2 ABG O2 Saturation ABG Base Excess Blaine Test ABG Potassium VBG pH VBG pCO2 VBG HCO3 VBG Total CO2 VBG O2 Sat (Calc) VBG Base Excess VBG Potassium A-a O2 Difference Sodium Chloride Glucose Lactate FiO2 Blood Gas Comments Crit Value Called To Crit Value Called By Crit Value Read Back Blood Gas Notified Time Potassium Carbon Dioxide Anion Gap BUN Creatinine Est GFR ( Amer) Est GFR (Non-Af Amer) Random Glucose Calcium Phosphorus 9.3 H Magnesium 2.0 Total Bilirubin AST ALT Alkaline Phosphatase Troponin I NT-Pro-B Natriuret Pep Total Protein Albumin Globulin Albumin/Globulin Ratio Arterial Blood Potassium Venous Blood Potassium Urine Color Urine Clarity Urine pH Ur Specific [place] Urine Protein Urine Glucose (UA) Urine Ketones Urine Blood Urine Nitrate Urine Bilirubin Urine Urobilinogen Ur Leukocyte Esterase Urine RBC (Auto) Urine Microscopic WBC Ur Squamous Epith Cells Amorphous Sediment Urine Bacteria Hyaline Casts Urine Opiates Screen Urine Methadone Screen Ur Barbiturates Screen Ur Phencyclidine Scrn Ur Amphetamines Screen U Benzodiazepines Scrn U Oth Cocaine Metabols U Cannabinoids Screen Alcohol, Quantitative Assessment & Plan - Assessment and Plan (Free Text) Assessment: ASSESSMENT: Sepsis: JORGE A stage 3: ATN: AMS Aspiration PNA Hypoglycemia h/o CVA Diarrhea : r/o c-diff DM PLAN: admit to ICU for close monitoring IVf NS 3000 cc bolus then RL at 100 cc/h Blood culture, urine culture and stool for c -diff sent from ER Vancomycin and azactom given in ER, will continue and will add flagyl for anerobic coverage , for possible c-dif colitis and aspiration repeat lactic acid in 6 hours Serial TNI Duoneb q 6 H heparin s/q DVT prophylaxis.
--- NOTE | 2018-07-29 16:30 | CT ---
Date of service: 07/29/2018 PROCEDURE: CT HEAD WITHOUT CONTRAST. HISTORY: Possible stroke COMPARISON: None available. TECHNIQUE: Axial computed tomography images were obtained through the head/brain without intravenous contrast. Supplemental Coronal and Sagittal projections created and reviewed. Radiation dose: Total exam DLP = 914.72 mGy-cm. This CT exam was performed using one or more of the following dose reduction techniques: Automated exposure control, adjustment of the mA and/or kV according to patient size, and/or use of iterative reconstruction technique. FINDINGS: HEMORRHAGE: No intracranial hemorrhage. BRAIN: No mass effect or edema. Encephalomalacia changes in particular left hemisphere with ipsilateral ventricular dilatation and areas encephalomalacia/postoperative change. VENTRICLES: Unremarkable. No hydrocephalus. CALVARIUM: Postoperative [place] variable changes bilaterally. PARANASAL SINUSES: Incompletely visualized air-fluid level right maxillary sinus consistent with acute sinusitis. More chronic and the less extensive changes identified in semi noise and ethmoid air cells. MASTOID AIR CELLS: Unremarkable as visualized. No inflammatory changes. OTHER FINDINGS: None. IMPRESSION: No acute intracranial abnormalities. No significant findings to account for the clinical presentation. Extensive postoperative changes described above.
[2018-07-29 16:58] LABS: VENOUS BLOOD GAS BASE EXCESS -8.7 mmol/L (0.0-2.0); VENOUS BLOOD GAS PCO2 60 mmHg (40-60); VENOUS BLOOD GAS PO2 31 mm/Hg (30-55); VENOUS BLOOD PH 7.15 (7.32-7.43)
[2018-07-29] MEDS ORDERED: Dextrose 50% SYRINGE Inj (50 ml) IVP ONE (19:09)
[2018-07-29] MEDS ORDERED: Albuterol-Ipratrop 3 mg / 0.5 (3 ml) UD INH PRN (19:39)
[2018-07-29] MEDS ORDERED: levETIRAcetam 1,000 MG in Sodium Chloride 0.9% 100 ML IVPB ONE (20:17)
[2018-07-29 23:20] LABS: ABG ALLEN TEST YES; ARTERIAL BLOOD GAS HCO3 16.9 mmol/L (21-28); ARTERIAL BLOOD GAS HEMOGLOBIN 11.8 g/dL (11.7-17.4); ARTERIAL BLOOD GAS O2 CAPACITY 16.3 mL/dL (16-24); ARTERIAL BLOOD GAS O2 CONTENT 16.3 ML/dL (15-23); ARTERIAL BLOOD GAS O2 SAT 100.2 % (95-98); ARTERIAL BLOOD GAS PCO2 48 mm/Hg (35-45); ARTERIAL BLOOD GAS PH 7.18 (7.35-7.45); ARTERIAL BLOOD GAS PO2 154 mm/Hg (80-100); ARTERIAL BLOOD GAS TCO2 19.4 mmol/L (22-28)
[2018-07-29] MEDS ORDERED: Sodium Bicarbonate 7.5% (0.9 MEQ/ML) 50ML INJ IV ONE (23:54)
[2018-07-30] MEDS: metroNIDAZOLE 500mg/100ml NS 100 ML IVPB SCH ×3 (00:24→16:15)
[2018-07-30] MEDS: Aztreonam 1 GM in Sodium Chloride 0.9% 100 ML IVPB SCH ×3 (00:25→16:11)
[2018-07-30 06:01] LABS: ABG ALLEN TEST YES; ARTERIAL BLOOD GAS HCO3 19.7 mmol/L (21-28); ARTERIAL BLOOD GAS O2 SAT 99.8 % (95-98); ARTERIAL BLOOD GAS PCO2 48 mm/Hg (35-45); ARTERIAL BLOOD GAS PH 7.24 (7.35-7.45); ARTERIAL BLOOD GAS PO2 105 mm/Hg (80-100); ARTERIAL BLOOD GAS TCO2 22.1 mmol/L (22-28)
[2018-07-30 06:17] LABS: BASO # 0.1 K/uL (0.0-0.2); BASO % 0.2 % (0.0-2.0); HEMOGLOBIN 10.4 g/dL (12.0-16.0); LYMPH # 1.1 K/uL (1.0-4.3); LYMPH % 3.4 % (20.0-40.0); MEAN CELL VOLUME 78.8 fl (81.0-99.0); MEAN CORPUSCULAR HEMOGLOBIN 24.1 pg (27.0-31.0); MEAN CORPUSCULAR HGB CONC 30.6 g/dL (33.0-37.0); MEAN PLATELET VOLUME 9.2 fl (7.2-11.7); MONO # 1.6 K/uL (0.0-0.8); NEUT # 28.8 K/uL (1.8-7.0); NEUT % 91.4 % (50.0-75.0); NRBC % 0.1 % (0.0-0.0); PLATELET COUNT 138 K/uL (130-400); RBC 4.31 Mil/uL (3.80-5.20); RED CELL DISTRIBUTION WIDTH 19.8 % (11.5-14.5); WHITE BLOOD COUNT 31.5 K/uL (4.8-10.8)
[2018-07-30 06:49] LABS: ALB/GLOB RATIO 0.7 (1.0-2.1); ALBUMIN 2.7 g/dL (3.5-5.0); CALCIUM 7.3 mg/dL (8.4-10.2)
[2018-07-30 06:51] LABS: TROPONIN I 3.6 ng/mL (0.00-0.120)
[2018-07-30 07:33] LABS: EOSINOPHIL 2 % (0-7); LYMPHOCYTE 4 % (20-50); MONOCYTE 2 % (0-10); NEUTROPHIL 92 % (42-75); PLATELET ESTIMATE NORMAL (NORMAL); TOTAL CELLS COUNTED 100
[2018-07-30 07:34] LABS: ANISOCYTOSIS SLIGHT; BURR CELLS SLIGHT; MICROCYTOSIS SLIGHT
[2018-07-30 07:35] LABS: TARGET CELLS SLIGHT
[2018-07-30 07:36] LABS: HYPOCHROMIC SLIGHT
--- NOTE | 2018-07-30 08:33 | CP.CCUPN ---
CCU Subjective - Physician Review Events Since Last Encounter (Free Text): 07/30/18 08:23 Was admitted yesterday, found unresponsive at home and had hypoglycemia, she was awake briefly in ER, there was resport of her used heroin and was given narcan by EMT and in ER. Over night she remained unresponsive most of the time. Neuro ordered EEG, bieng done, suspecting she might be in seizure. Has received almost 5 liters of fluid since admission and has been oliguric. Now liver enzymes are high , could be ischemic liver or is these AST and ALT of muscles origin and whether she had rhabdomyolysis cause by seizures, CKK just ordered. ABG did not show hypercapnea as the cause of AMS. She has JORGE A and AMS but no signs of hemolysis and thromocytopenia, so not a case of TTP. Again had lose BM last nigh and stool for c-diff sent from ER, report still pending and all cultures result is pending. Has not been hypotensive and Lactic acid is improving. TNI is rising, she is in a fib, cardiology consult has been called for. CCU Objective - Vital Signs / Intake & Output Vital Signs (Last 4 hours): Vital Signs Pulse Resp BP Pulse Ox 07/30/18 06:00 67 13 94/53 L 99 07/30/18 05:00 65 8 L 98/53 L 100 Intake and Output (Last 8hrs): Intake & Output 07/29/18 07/30/18 07/30/18 22:59 06:59 14:59 Intake Total 320 2950 Output Total 325 109 Balance -5 2841 Weight 217 lb Intake: IV 320 2140 Intake, Piggyback 810 Output: Urine 325 109 Urethral (Amaro) 50 Other: # Bowel Movements 1 - Physical Exam Narrative Physical Exam (Free Text): 07/30/18 08:33 P/E Neck: No JVD Lungs: No ronchi, crackles Abdomen: soft. BS +ve Ex: NO edema heart: s1 s2 irregular, a fib - Medications Active Medications: Active Medications Generic Name Dose Route Start Last Admin Trade Name Freq PRN Reason Stop Dose Admin Albuterol/Ipratropium 3 ml 07/29/18 19:39 Duoneb 3 Mg/0.5 Mg (3 Ml) Ud INH RQ6 PRN Shortness of Breath Enoxaparin Sodium 100 mg 07/30/18 09:00 Lovenox SC DAILY [facility] Protocol Vancomycin HCl 1 gm/ Sodium 250 mls @ 166.667 mls/hr 07/30/18 09:00 Chloride IVPB DAILY [facility] Protocol Dextrose/Sodium Chloride 1,000 mls @ 80 mls/hr 07/29/18 19:00 07/29/18 19:30 Dextrose 5%/0.45% Ns 1000 Ml IV 07/30/18 18:57 80 mls/hr .[id number] [facility] Administration Aztreonam 1 gm/ Sodium 100 mls @ 100 mls/hr 07/30/18 01:00 07/30/18 00:25 Chloride IVPB 100 mls/hr Q8 [facility] Administration Protocol Metronidazole 100 mls @ 100 mls/hr 07/30/18 01:00 07/30/18 00:24 Flagyl 500mg/100ml Ns IVPB 100 mls/hr Q8 [facility] Administration Protocol Levetiracetam 500 mg/ Sodium 105 mls @ 210 mls/hr 07/30/18 09:00 Chloride IVPB Q12 [facility] Sodium Chloride 500 mls @ 1,000 mls/hr 07/29/18 21:45 07/29/18 21:45 Sodium Chloride 0.45% IV 07/30/18 21:43 1,000 mls/hr .Q30M [facility] Administration Sodium Chloride 500 mls @ 1,000 mls/hr 07/29/18 23:45 07/30/18 00:23 Sodium Chloride 0.45% IV 07/30/18 23:56 1,000 mls/hr .Q30M [facility] Administration Sodium Chloride 500 mls @ 1,000 mls/hr 07/30/18 01:30 07/30/18 01:30 Sodium Chloride 0.45% IV 07/31/18 01:30 1,000 mls/hr .Q30M [facility] Administration Sodium Chloride 500 mls @ 1,000 mls/hr 07/30/18 02:45 07/30/18 02:55 Sodium Chloride 0.45% IV 07/31/18 02:42 1,000 mls/hr .Q30M [facility] Administration - Patient Studies Lab Studies: Lab Studies 07/30/18 07/30/18 07/30/18 Range/Units 07:54 05:46 05:12 WBC (4.8-10.8) K/uL RBC (3.80-5.20) Mil/uL Hgb (12.0-16.0) g/dL Hct (34.0-47.0) % MCV (81.0-99.0) fl MCH (27.0-31.0) pg MCHC (33.0-37.0) g/dL RDW (11.5-14.5) % Plt Count (130-400) K/uL MPV (7.2-11.7) fl Neut % (Auto) (50.0-75.0) % Lymph % (Auto) (20.0-40.0) % Hill % (Auto) (0.0-10.0) % Eos % (Auto) (0.0-4.0) % Baso % (Auto) (0.0-2.0) % Neut # (Auto) (1.8-7.0) K/uL Lymph # (Auto) (1.0-4.3) K/uL Hill # (Auto) (0.0-0.8) K/uL Eos # (Auto) (0.0-0.7) K/uL Baso # (Auto) (0.0-0.2) K/uL Neutrophils % (Manual) (42-75) % Lymphocytes % (Manual) (20-50) % Monocytes % (Manual) (0-10) % Eosinophils % (Manual) (0-7) % Platelet Estimate (NORMAL) Large Platelets Hypochromasia (manual) Poikilocytosis (manual Anisocytosis (manual) Microcytosis (manual) Macrocytosis (manual) Target Cells Tear Drop Cells Ovalocytes Jeannette Cells PT (9.8-13.1) Seconds INR APTT (25.6-37.1) Seconds pCO2 48 H (35-45) mm/Hg pO2 105 H (80-100) mm/Hg HCO3 19.7 L (21-28) mmol/L ABG pH 7.24 L (7.35-7.45) ABG Total CO2 22.1 (22-28) mmol/L ABG O2 Saturation 99.8 H (95-98) % ABG O2 Content 15.0 (15-23) ML/dL ABG Base Excess -6.7 L (-2.0-3.0) mmol/L ABG Hemoglobin 11.0 L (11.7-17.4) g/dL ABG Carboxyhemoglobin 2.1 H (0.5-1.5) % POC ABG HHb (Measured) 0.2 (0.0-5.0) % ABG Methemoglobin 1.7 (0.0-3.0) % ABG O2 Capacity 15.0 L (16-24) mL/dL Blaine Test Yes ABG Potassium (3.6-5.2) mmol/L VBG pH (7.32-7.43) VBG pCO2 (40-60) mmHg VBG HCO3 mmol/L VBG Total CO2 (22-28) mmol/L VBG O2 Sat (Calc) (40-65) % VBG Base Excess (0.0-2.0) mmol/L VBG Potassium (3.6-5.2) mmol/L A-a O2 Difference 35.0 mm/Hg Hgb O2 Saturation 96.0 (95.0-98.0) % Sodium (132-148) mmol/L Chloride (98-107) mmol/L Glucose (65-105) mg/dL Lactate (0.7-2.1) mmol/L FiO2 28.0 % Blood Gas Comments Crit Value Called To Crit Value Called By Crit Value Read Back Blood Gas Notified Time Potassium (3.6-5.0) MMOL/L Carbon Dioxide (22-30) mmol/L Anion Gap (10-20) BUN (7-17) mg/dl Creatinine (0.7-1.2) mg/dl Est GFR ( Amer) Est GFR (Non-Af Amer) POC Glucose (mg/dL) 160 H 331 H (65-110) mg/dL Random Glucose (65-105) mg/dL Lactic Acid (0.7-2.1) mmol/L Calcium (8.4-10.2) mg/dL Phosphorus (2.5-4.5) mg/dl Magnesium (1.6-2.3) MG/DL Total Bilirubin (0.2-1.3) mg/dl AST (14-36) U/L ALT (9-52) U/L Alkaline Phosphatase (38-126) U/L Ammonia (11-51) umo/L Troponin I (0.00-0.120) ng/mL NT-Pro-B Natriuret Pep (0-900) pg/ml Total Protein (6.3-8.2) G/DL Albumin (3.5-5.0) g/dL Globulin (2.2-3.9) gm/dL Albumin/Globulin Ratio (1.0-2.1) Arterial Blood Potassium (3.6-5.2) mmol/L Venous Blood Potassium (3.6-5.2) mmol/L Urine Color (YELLOW) Urine Clarity (Clear) Urine pH (5.0-8.0) Ur Specific [place] (1.003-1.030) Urine Protein (NEGATIVE) mg/dL Urine Glucose (UA) (NEGATIVE) mg/dL Urine Ketones (NEGATIVE) mg/dL Urine Blood (NEGATIVE) Urine Nitrate (NEGATIVE) Urine Bilirubin (NEGATIVE) Urine Urobilinogen (0.2-1.0) mg/dL Ur Leukocyte Esterase (Negative) Brittney/uL Urine RBC (Auto) (0-3) /hpf Urine Microscopic WBC (0-5) /hpf Ur Squamous Epith Cells (0-5) /hpf Amorphous Sediment (<OCC) /ul Urine Bacteria (<OCC) Hyaline Casts (0-2) /hpf Urine Opiates Screen (NEGATIVE) Urine Methadone Screen (NEGATIVE) Ur Barbiturates Screen (NEGATIVE) Ur Phencyclidine Scrn (NEGATIVE) Ur Amphetamines Screen (NEGATIVE) U Benzodiazepines Scrn (NEGATIVE) U Oth Cocaine Metabols (NEGATIVE) U Cannabinoids Screen (NEGATIVE) Alcohol, Quantitative (0-10) mg/dl 07/30/18 07/30/18 07/30/18 Range/Units 04:50 04:50 04:50 WBC 31.5 H (4.8-10.8) K/uL RBC 4.31 (3.80-5.20) Mil/uL Hgb 10.4 L (12.0-16.0) g/dL Hct 34.0 (34.0-47.0) % MCV 78.8 L (81.0-99.0) fl MCH 24.1 L (27.0-31.0) pg MCHC 30.6 L (33.0-37.0) g/dL RDW 19.8 H (11.5-14.5) % Plt Count 138 (130-400) K/uL MPV 9.2 (7.2-11.7) fl Neut % (Auto) 91.4 H (50.0-75.0) % Lymph % (Auto) 3.4 L (20.0-40.0) % Hill % (Auto) 5.0 (0.0-10.0) % Eos % (Auto) 0.0 (0.0-4.0) % Baso % (Auto) 0.2 (0.0-2.0) % Neut # (Auto) 28.8 H (1.8-7.0) K/uL Lymph # (Auto) 1.1 (1.0-4.3) K/uL Hill # (Auto) 1.6 H (0.0-0.8) K/uL Eos # (Auto) 0.0 (0.0-0.7) K/uL Baso # (Auto) 0.1 (0.0-0.2) K/uL Neutrophils % (Manual) 92 H (42-75) % Lymphocytes % (Manual) 4 L (20-50) % Monocytes % (Manual) 2 (0-10) % Eosinophils % (Manual) 2 (0-7) % Platelet Estimate Normal (NORMAL) Large Platelets Hypochromasia (manual) Slight Poikilocytosis (manual Anisocytosis (manual) Slight Microcytosis (manual) Slight Macrocytosis (manual) Target Cells Slight Tear Drop Cells Ovalocytes [place] Cells Slight PT (9.8-13.1) Seconds INR APTT (25.6-37.1) Seconds pCO2 (35-45) mm/Hg pO2 (80-100) mm/Hg HCO3 (21-28) mmol/L ABG pH (7.35-7.45) ABG Total CO2 (22-28) mmol/L ABG O2 Saturation (95-98) % ABG O2 Content (15-23) ML/dL ABG Base Excess (-2.0-3.0) mmol/L ABG Hemoglobin (11.7-17.4) g/dL ABG Carboxyhemoglobin (0.5-1.5) % POC ABG HHb (Measured) (0.0-5.0) % ABG Methemoglobin (0.0-3.0) % ABG O2 Capacity (16-24) mL/dL Blaine Test ABG Potassium (3.6-5.2) mmol/L VBG pH (7.32-7.43) VBG pCO2 (40-60) mmHg VBG HCO3 mmol/L VBG Total CO2 (22-28) mmol/L VBG O2 Sat (Calc) (40-65) % VBG Base Excess (0.0-2.0) mmol/L VBG Potassium (3.6-5.2) mmol/L A-a O2 Difference mm/Hg Hgb O2 Saturation (95.0-98.0) % Sodium 138 (132-148) mmol/L Chloride 101 (98-107) mmol/L Glucose (65-105) mg/dL Lactate (0.7-2.1) mmol/L FiO2 % Blood Gas Comments Crit Value Called To Crit Value Called By Crit Value Read Back Blood Gas Notified Time Potassium 4.8 (3.6-5.0) MMOL/L Carbon Dioxide 21 L (22-30) mmol/L Anion Gap 21 H (10-20) BUN 31 H (7-17) mg/dl Creatinine 2.6 H (0.7-1.2) mg/dl Est GFR ( Amer) 23 Est GFR (Non-Af Amer) 19 POC Glucose (mg/dL) (65-110) mg/dL Random Glucose 231 H (65-105) mg/dL Lactic Acid 3.9 H (0.7-2.1) mmol/L Calcium 7.3 L (8.4-10.2) mg/dL Phosphorus (2.5-4.5) mg/dl Magnesium (1.6-2.3) MG/DL Total Bilirubin 2.3 H (0.2-1.3) mg/dl AST 6852 H (14-36) U/L ALT 3395 H (9-52) U/L Alkaline Phosphatase 124 (38-126) U/L Ammonia (11-51) umo/L Troponin I 3.6000 H* (0.00-0.120) ng/mL NT-Pro-B Natriuret Pep (0-900) pg/ml Total Protein 6.4 (6.3-8.2) G/DL Albumin 2.7 L D (3.5-5.0) g/dL Globulin 3.6 (2.2-3.9) gm/dL Albumin/Globulin Ratio 0.7 L (1.0-2.1) Arterial Blood Potassium (3.6-5.2) mmol/L Venous Blood Potassium (3.6-5.2) mmol/L Urine Color (YELLOW) Urine Clarity (Clear) Urine pH (5.0-8.0) Ur Specific [place] (1.003-1.030) Urine Protein (NEGATIVE) mg/dL Urine Glucose (UA) (NEGATIVE) mg/dL Urine Ketones (NEGATIVE) mg/dL Urine Blood (NEGATIVE) Urine Nitrate (NEGATIVE) Urine Bilirubin (NEGATIVE) Urine Urobilinogen (0.2-1.0) mg/dL Ur Leukocyte Esterase (Negative) Brittney/uL Urine RBC (Auto) (0-3) /hpf Urine Microscopic WBC (0-5) /hpf Ur Squamous Epith Cells (0-5) /hpf Amorphous Sediment (<OCC) /ul Urine Bacteria (<OCC) Hyaline Casts (0-2) /hpf Urine Opiates Screen (NEGATIVE) Urine Methadone Screen (NEGATIVE) Ur Barbiturates Screen (NEGATIVE) Ur Phencyclidine Scrn (NEGATIVE) Ur Amphetamines Screen (NEGATIVE) U Benzodiazepines Scrn (NEGATIVE) U Oth Cocaine Metabols (NEGATIVE) U Cannabinoids Screen (NEGATIVE) Alcohol, Quantitative (0-10) mg/dl 07/30/18 07/30/18 07/30/18 Range/Units 04:10 02:11 00:19 WBC (4.8-10.8) K/uL RBC (3.80-5.20) Mil/uL Hgb (12.0-16.0) g/dL Hct (34.0-47.0) % MCV (81.0-99.0) fl MCH (27.0-31.0) pg MCHC (33.0-37.0) g/dL RDW (11.5-14.5) % Plt Count (130-400) K/uL MPV (7.2-11.7) fl Neut % (Auto) (50.0-75.0) % Lymph % (Auto) (20.0-40.0) % Hill % (Auto) (0.0-10.0) % Eos % (Auto) (0.0-4.0) % Baso % (Auto) (0.0-2.0) % Neut # (Auto) (1.8-7.0) K/uL Lymph # (Auto) (1.0-4.3) K/uL Hill # (Auto) (0.0-0.8) K/uL Eos # (Auto) (0.0-0.7) K/uL Baso # (Auto) (0.0-0.2) K/uL Neutrophils % (Manual) (42-75) % Lymphocytes % (Manual) (20-50) % Monocytes % (Manual) (0-10) % Eosinophils % (Manual) (0-7) % Platelet Estimate (NORMAL) Large Platelets Hypochromasia (manual) Poikilocytosis (manual Anisocytosis (manual) Microcytosis (manual) Macrocytosis (manual) Target Cells Tear Drop Cells Ovalocytes Jeannette Cells PT (9.8-13.1) Seconds INR APTT (25.6-37.1) Seconds pCO2 (35-45) mm/Hg pO2 (80-100) mm/Hg HCO3 (21-28) mmol/L ABG pH (7.35-7.45) ABG Total CO2 (22-28) mmol/L ABG O2 Saturation (95-98) % ABG O2 Content (15-23) ML/dL ABG Base Excess (-2.0-3.0) mmol/L ABG Hemoglobin (11.7-17.4) g/dL ABG Carboxyhemoglobin (0.5-1.5) % POC ABG HHb (Measured) (0.0-5.0) % ABG Methemoglobin (0.0-3.0) % ABG O2 Capacity (16-24) mL/dL Bl[place] Test ABG Potassium (3.6-5.2) mmol/L VBG pH (7.32-7.43) VBG pCO2 (40-60) mmHg VBG HCO3 mmol/L VBG Total CO2 (22-28) mmol/L VBG O2 Sat (Calc) (40-65) % VBG Base Excess (0.0-2.0) mmol/L VBG Potassium (3.6-5.2) mmol/L A-a O2 Difference mm/Hg Hgb O2 Saturation (95.0-98.0) % Sodium (132-148) mmol/L Chloride (98-107) mmol/L Glucose (65-105) mg/dL Lactate (0.7-2.1) mmol/L FiO2 % Blood Gas Comments Crit Value Called To Crit Value Called By Crit Value Read Back Blood Gas Notified Time Potassium (3.6-5.0) MMOL/L Carbon Dioxide (22-30) mmol/L Anion Gap (10-20) BUN (7-17) mg/dl Creatinine (0.7-1.2) mg/dl Est GFR ( Amer) Est GFR (Non-Af Amer) POC Glucose (mg/dL) 148 H 188 H 151 H (65-110) mg/dL Random Glucose (65-105) mg/dL Lactic Acid (0.7-2.1) mmol/L Calcium (8.4-10.2) mg/dL Phosphorus (2.5-4.5) mg/dl Magnesium (1.6-2.3) MG/DL Total Bilirubin (0.2-1.3) mg/dl AST (14-36) U/L ALT (9-52) U/L Alkaline Phosphatase (38-126) U/L Ammonia (11-51) umo/L Troponin I (0.00-0.120) ng/mL NT-Pro-B Natriuret Pep (0-900) pg/ml Total Protein (6.3-8.2) G/DL Albumin (3.5-5.0) g/dL Globulin (2.2-3.9) gm/dL Albumin/Globulin Ratio (1.0-2.1) Arterial Blood Potassium (3.6-5.2) mmol/L Venous Blood Potassium (3.6-5.2) mmol/L Urine Color (YELLOW) Urine Clarity (Clear) Urine pH (5.0-8.0) Ur Specific [place] (1.003-1.030) Urine Protein (NEGATIVE) mg/dL Urine Glucose (UA) (NEGATIVE) mg/dL Urine Ketones (NEGATIVE) mg/dL Urine Blood (NEGATIVE) Urine Nitrate (NEGATIVE) Urine Bilirubin (NEGATIVE) Urine Urobilinogen (0.2-1.0) mg/dL Ur Leukocyte Esterase (Negative) Brittney/uL Urine RBC (Auto) (0-3) /hpf Urine Microscopic WBC (0-5) /hpf Ur Squamous Epith Cells (0-5) /hpf Amorphous Sediment (<OCC) /ul Urine Bacteria (<OCC) Hyaline Casts (0-2) /hpf Urine Opiates Screen (NEGATIVE) Urine Methadone Screen (NEGATIVE) Ur Barbiturates Screen (NEGATIVE) Ur Phencyclidine Scrn (NEGATIVE) Ur Amphetamines Screen (NEGATIVE) U Benzodiazepines Scrn (NEGATIVE) U Oth Cocaine Metabols (NEGATIVE) U Cannabinoids Screen (NEGATIVE) Alcohol, Quantitative (0-10) mg/dl 07/29/18 07/29/18 07/29/18 Range/Units 23:08 21:58 21:00 WBC (4.8-10.8) K/uL RBC (3.80-5.20) Mil/uL Hgb (12.0-16.0) g/dL Hct (34.0-47.0) % MCV (81.0-99.0) fl MCH (27.0-31.0) pg MCHC (33.0-37.0) g/dL RDW (11.5-14.5) % Plt Count (130-400) K/uL MPV (7.2-11.7) fl Neut % (Auto) (50.0-75.0) % Lymph % (Auto) (20.0-40.0) % Hill % (Auto) (0.0-10.0) % Eos % (Auto) (0.0-4.0) % Baso % (Auto) (0.0-2.0) % Neut # (Auto) (1.8-7.0) K/uL Lymph # (Auto) (1.0-4.3) K/uL Hill # (Auto) (0.0-0.8) K/uL Eos # (Auto) (0.0-0.7) K/uL Baso # (Auto) (0.0-0.2) K/uL Neutrophils % (Manual) (42-75) % Lymphocytes % (Manual) (20-50) % Monocytes % (Manual) (0-10) % Eosinophils % (Manual) (0-7) % Platelet Estimate (NORMAL) Large Platelets Hypochromasia (manual) Poikilocytosis (manual Anisocytosis (manual) Microcytosis (manual) Macrocytosis (manual) Target Cells Tear Drop Cells Ovalocytes Jeannette Cells PT (9.8-13.1) Seconds INR APTT (25.6-37.1) Seconds pCO2 48 H (35-45) mm/Hg pO2 154 H (80-100) mm/Hg HCO3 16.9 L (21-28) mmol/L ABG pH 7.18 L* (7.35-7.45) ABG Total CO2 19.4 L (22-28) mmol/L ABG O2 Saturation 100.2 H (95-98) % ABG O2 Content 16.3 (15-23) ML/dL ABG Base Excess -10.3 L (-2.0-3.0) mmol/L ABG Hemoglobin 11.8 (11.7-17.4) g/dL ABG Carboxyhemoglobin 1.9 H (0.5-1.5) % POC ABG HHb (Measured) -0.2 L (0.0-5.0) % ABG Methemoglobin 1.9 (0.0-3.0) % ABG O2 Capacity 16.3 (16-24) mL/dL Blaine Test Yes ABG Potassium (3.6-5.2) mmol/L VBG pH (7.32-7.43) VBG pCO2 (40-60) mmHg VBG HCO3 mmol/L VBG Total CO2 (22-28) mmol/L VBG O2 Sat (Calc) (40-65) % VBG Base Excess (0.0-2.0) mmol/L VBG Potassium (3.6-5.2) mmol/L A-a O2 Difference -14.0 mm/Hg Hgb O2 Saturation 96.4 (95.0-98.0) % Sodium (132-148) mmol/L Chloride (98-107) mmol/L Glucose (65-105) mg/dL Lactate (0.7-2.1) mmol/L FiO2 28.0 % Blood Gas Comments Crit Value Called To Prietotrell bojorquez rn Crit Value Called By 333 Crit Value Read Back Y Blood Gas Notified Time 2320 Potassium (3.6-5.0) MMOL/L Carbon Dioxide (22-30) mmol/L Anion Gap (10-20) BUN (7-17) mg/dl Creatinine (0.7-1.2) mg/dl Est GFR ( Amer) Est GFR (Non-Af Amer) POC Glucose (mg/dL) 132 H (65-110) mg/dL Random Glucose (65-105) mg/dL Lactic Acid 6.0 H* (0.7-2.1) mmol/L Calcium (8.4-10.2) mg/dL Phosphorus (2.5-4.5) mg/dl Magnesium (1.6-2.3) MG/DL Total Bilirubin (0.2-1.3) mg/dl AST (14-36) U/L ALT (9-52) U/L Alkaline Phosphatase (38-126) U/L Ammonia (11-51) umo/L Troponin I (0.00-0.120) ng/mL NT-Pro-B Natriuret Pep (0-900) pg/ml Total Protein (6.3-8.2) G/DL Albumin (3.5-5.0) g/dL Globulin (2.2-3.9) gm/dL Albumin/Globulin Ratio (1.0-2.1) Arterial Blood Potassium (3.6-5.2) mmol/L Venous Blood Potassium (3.6-5.2) mmol/L Urine Color (YELLOW) Urine Clarity (Clear) Urine pH (5.0-8.0) Ur Specific [place] (1.003-1.030) Urine Protein (NEGATIVE) mg/dL Urine Glucose (UA) (NEGATIVE) mg/dL Urine Ketones (NEGATIVE) mg/dL Urine Blood (NEGATIVE) Urine Nitrate (NEGATIVE) Urine Bilirubin (NEGATIVE) Urine Urobilinogen (0.2-1.0) mg/dL Ur Leukocyte Esterase (Negative) Brittney/uL Urine RBC (Auto) (0-3) /hpf Urine Microscopic WBC (0-5) /hpf Ur Squamous Epith Cells (0-5) /hpf Amorphous Sediment (<OCC) /ul Urine Bacteria (<OCC) Hyaline Casts (0-2) /hpf Urine Opiates Screen (NEGATIVE) Urine Methadone Screen (NEGATIVE) Ur Barbiturates Screen (NEGATIVE) Ur Phencyclidine Scrn (NEGATIVE) Ur Amphetamines Screen (NEGATIVE) U Benzodiazepines Scrn (NEGATIVE) U Oth Cocaine Metabols (NEGATIVE) U Cannabinoids Screen (NEGATIVE) Alcohol, Quantitative (0-10) mg/dl 07/29/18 07/29/18 07/29/18 Range/Units 20:18 19:48 19:48 WBC (4.8-10.8) K/uL RBC (3.80-5.20) Mil/uL Hgb (12.0-16.0) g/dL Hct (34.0-47.0) % MCV (81.0-99.0) fl MCH (27.0-31.0) pg MCHC (33.0-37.0) g/dL RDW (11.5-14.5) % Plt Count (130-400) K/uL MPV (7.2-11.7) fl Neut % (Auto) (50.0-75.0) % Lymph % (Auto) (20.0-40.0) % Hill % (Auto) (0.0-10.0) % Eos % (Auto) (0.0-4.0) % Baso % (Auto) (0.0-2.0) % Neut # (Auto) (1.8-7.0) K/uL Lymph # (Auto) (1.0-4.3) K/uL [place] # (Auto) (0.0-0.8) K/uL Eos # (Auto) (0.0-0.7) K/uL Baso # (Auto) (0.0-0.2) K/uL Neutrophils % (Manual) (42-75) % Lymphocytes % (Manual) (20-50) % Monocytes % (Manual) (0-10) % Eosinophils % (Manual) (0-7) % Platelet Estimate (NORMAL) Large Platelets Hypochromasia (manual) Poikilocytosis (manual Anisocytosis (manual) Microcytosis (manual) Macrocytosis (manual) Target Cells Tear Drop Cells Ovalocytes [place] Cells PT (9.8-13.1) Seconds INR APTT (25.6-37.1) Seconds pCO2 (35-45) mm/Hg pO2 (80-100) mm/Hg HCO3 (21-28) mmol/L ABG pH (7.35-7.45) ABG Total CO2 (22-28) mmol/L ABG O2 Saturation (95-98) % ABG O2 Content (15-23) ML/dL ABG Base Excess (-2.0-3.0) mmol/L ABG Hemoglobin (11.7-17.4) g/dL ABG Carboxyhemoglobin (0.5-1.5) % POC ABG HHb (Measured) (0.0-5.0) % ABG Methemoglobin (0.0-3.0) % ABG O2 Capacity (16-24) mL/dL [place] Test ABG Potassium (3.6-5.2) mmol/L VBG pH (7.32-7.43) VBG pCO2 (40-60) mmHg VBG HCO3 mmol/L VBG Total CO2 (22-28) mmol/L VBG O2 Sat (Calc) (40-65) % VBG Base Excess (0.0-2.0) mmol/L VBG Potassium (3.6-5.2) mmol/L A-a O2 Difference mm/Hg Hgb O2 Saturation (95.0-98.0) % Sodium (132-148) mmol/L Chloride (98-107) mmol/L Glucose (65-105) mg/dL Lactate (0.7-2.1) mmol/L FiO2 % Blood Gas Comments Crit Value Called To Crit Value Called By Crit Value Read Back Blood Gas Notified Time Potassium (3.6-5.0) MMOL/L Carbon Dioxide (22-30) mmol/L Anion Gap (10-20) BUN (7-17) mg/dl Creatinine (0.7-1.2) mg/dl Est GFR ( Amer) Est GFR (Non-Af Amer) POC Glucose (mg/dL) 147 H (65-110) mg/dL Random Glucose (65-105) mg/dL Lactic Acid (0.7-2.1) mmol/L Calcium (8.4-10.2) mg/dL Phosphorus (2.5-4.5) mg/dl Magnesium (1.6-2.3) MG/DL Total Bilirubin (0.2-1.3) mg/dl AST (14-36) U/L ALT (9-52) U/L Alkaline Phosphatase (38-126) U/L Ammonia 36 (11-51) umo/L Troponin I 1.7800 H* (0.00-0.120) ng/mL NT-Pro-B Natriuret Pep (0-900) pg/ml Total Protein (6.3-8.2) G/DL Albumin (3.5-5.0) g/dL Globulin (2.2-3.9) gm/dL Albumin/Globulin Ratio (1.0-2.1) Arterial Blood Potassium (3.6-5.2) mmol/L Venous Blood Potassium (3.6-5.2) mmol/L Urine Color (YELLOW) Urine Clarity (Clear) Urine pH (5.0-8.0) Ur Specific [place] (1.003-1.030) Urine Protein (NEGATIVE) mg/dL Urine Glucose (UA) (NEGATIVE) mg/dL Urine Ketones (NEGATIVE) mg/dL Urine Blood (NEGATIVE) Urine Nitrate (NEGATIVE) Urine Bilirubin (NEGATIVE) Urine Urobilinogen (0.2-1.0) mg/dL Ur Leukocyte Esterase (Negative) Brittney/uL Urine RBC (Auto) (0-3) /hpf Urine Microscopic WBC (0-5) /hpf Ur Squamous Epith Cells (0-5) /hpf Amorphous Sediment (<OCC) /ul Urine Bacteria (<OCC) Hyaline Casts (0-2) /hpf Urine Opiates Screen (NEGATIVE) Urine Methadone Screen (NEGATIVE) Ur Barbiturates Screen (NEGATIVE) Ur Phencyclidine Scrn (NEGATIVE) Ur Amphetamines Screen (NEGATIVE) U Benzodiazepines Scrn (NEGATIVE) U Oth Cocaine Metabols (NEGATIVE) U Cannabinoids Screen (NEGATIVE) Alcohol, Quantitative (0-10) mg/dl 07/29/18 07/29/18 07/29/18 Range/Units 18:54 16:48 14:50 WBC (4.8-10.8) K/uL RBC (3.80-5.20) Mil/uL Hgb (12.0-16.0) g/dL Hct (34.0-47.0) % MCV (81.0-99.0) fl MCH (27.0-31.0) pg MCHC (33.0-37.0) g/dL RDW (11.5-14.5) % Plt Count (130-400) K/uL MPV (7.2-11.7) fl Neut % (Auto) (50.0-75.0) % Lymph % (Auto) (20.0-40.0) % Hill % (Auto) (0.0-10.0) % Eos % (Auto) (0.0-4.0) % Baso % (Auto) (0.0-2.0) % Neut # (Auto) (1.8-7.0) K/uL Lymph # (Auto) (1.0-4.3) K/uL Hill # (Auto) (0.0-0.8) K/uL Eos # (Auto) (0.0-0.7) K/uL Baso # (Auto) (0.0-0.2) K/uL Neutrophils % (Manual) (42-75) % Lymphocytes % (Manual) (20-50) % Monocytes % (Manual) (0-10) % Eosinophils % (Manual) (0-7) % Platelet Estimate (NORMAL) Large Platelets Hypochromasia (manual) Poikilocytosis (manual Anisocytosis (manual) Microcytosis (manual) Macrocytosis (manual) Target Cells Tear Drop Cells Ovalocytes Jeannette Cells PT 21.5 H (9.8-13.1) Seconds INR 1.9 APTT 44.5 H (25.6-37.1) Seconds pCO2 (35-45) mm/Hg pO2 31 (80-100) mm/Hg HCO3 (21-28) mmol/L ABG pH (7.35-7.45) ABG Total CO2 (22-28) mmol/L ABG O2 Saturation (95-98) % ABG O2 Content (15-23) ML/dL ABG Base Excess (-2.0-3.0) mmol/L ABG Hemoglobin (11.7-17.4) g/dL ABG Carboxyhemoglobin (0.5-1.5) % POC ABG HHb (Measured) (0.0-5.0) % ABG Methemoglobin (0.0-3.0) % ABG O2 Capacity (16-24) mL/dL [place] Test ABG Potassium (3.6-5.2) mmol/L VBG pH 7.15 L* (7.32-7.43) VBG pCO2 60 (40-60) mmHg VBG HCO3 16.6 mmol/L VBG Total CO2 22.7 (22-28) mmol/L VBG O2 Sat (Calc) 54.4 (40-65) % VBG Base Excess -8.7 L (0.0-2.0) mmol/L VBG Potassium 4.2 (3.6-5.2) mmol/L A-a O2 Difference mm/Hg Hgb O2 Saturation (95.0-98.0) % Sodium 138.0 (132-148) mmol/L Chloride 105.0 (98-107) mmol/L Glucose 105 (65-105) mg/dL Lactate 7.8 H* (0.7-2.1) mmol/L FiO2 21.0 % Blood Gas Comments Crit Value Called To Tejinder walter md Crit Value Called By Ann hirsch Crit Value Read Back Y Blood Gas Notified Time 1655 Potassium (3.6-5.0) MMOL/L Carbon Dioxide (22-30) mmol/L Anion Gap (10-20) BUN (7-17) mg/dl Creatinine (0.7-1.2) mg/dl Est GFR ( Amer) Est GFR (Non-Af Amer) POC Glucose (mg/dL) 70 (65-110) mg/dL Random Glucose (65-105) mg/dL Lactic Acid (0.7-2.1) mmol/L Calcium (8.4-10.2) mg/dL Phosphorus (2.5-4.5) mg/dl Magnesium (1.6-2.3) MG/DL Total Bilirubin (0.2-1.3) mg/dl AST (14-36) U/L ALT (9-52) U/L Alkaline Phosphatase (38-126) U/L Ammonia (11-51) umo/L Troponin I (0.00-0.120) ng/mL NT-Pro-B Natriuret Pep (0-900) pg/ml Total Protein (6.3-8.2) G/DL Albumin (3.5-5.0) g/dL Globulin (2.2-3.9) gm/dL Albumin/Globulin Ratio (1.0-2.1) Arterial Blood Potassium (3.6-5.2) mmol/L Venous Blood Potassium 4.2 (3.6-5.2) mmol/L Urine Color (YELLOW) Urine Clarity (Clear) Urine pH (5.0-8.0) Ur Specific [place] (1.003-1.030) Urine Protein (NEGATIVE) mg/dL Urine Glucose (UA) (NEGATIVE) mg/dL Urine Ketones (NEGATIVE) mg/dL Urine Blood (NEGATIVE) Urine Nitrate (NEGATIVE) Urine Bilirubin (NEGATIVE) Urine Urobilinogen (0.2-1.0) mg/dL Ur Leukocyte Esterase (Negative) Brittney/uL Urine RBC (Auto) (0-3) /hpf Urine Microscopic WBC (0-5) /hpf Ur Squamous Epith Cells (0-5) /hpf Amorphous Sediment (<OCC) /ul Urine Bacteria (<OCC) Hyaline Casts (0-2) /hpf Urine Opiates Screen (NEGATIVE) Urine Methadone Screen (NEGATIVE) Ur Barbiturates Screen (NEGATIVE) Ur Phencyclidine Scrn (NEGATIVE) Ur Amphetamines Screen (NEGATIVE) U Benzodiazepines Scrn (NEGATIVE) U Oth Cocaine Metabols (NEGATIVE) U Cannabinoids Screen (NEGATIVE) Alcohol, Quantitative (0-10) mg/dl 07/29/18 07/29/18 07/29/18 Range/Units 14:50 14:50 14:50 WBC (4.8-10.8) K/uL RBC (3.80-5.20) Mil/uL Hgb (12.0-16.0) g/dL Hct (34.0-47.0) % MCV (81.0-99.0) fl MCH (27.0-31.0) pg MCHC (33.0-37.0) g/dL RDW (11.5-14.5) % Plt Count (130-400) K/uL MPV (7.2-11.7) fl Neut % (Auto) (50.0-75.0) % Lymph % (Auto) (20.0-40.0) % Hill % (Auto) (0.0-10.0) % Eos % (Auto) (0.0-4.0) % Baso % (Auto) (0.0-2.0) % Neut # (Auto) (1.8-7.0) K/uL Lymph # (Auto) (1.0-4.3) K/uL Hill # (Auto) (0.0-0.8) K/uL Eos # (Auto) (0.0-0.7) K/uL Baso # (Auto) (0.0-0.2) K/uL Neutrophils % (Manual) (42-75) % Lymphocytes % (Manual) (20-50) % Monocytes % (Manual) (0-10) % Eosinophils % (Manual) (0-7) % Platelet Estimate (NORMAL) Large Platelets Hypochromasia (manual) Poikilocytosis (manual Anisocytosis (manual) Microcytosis (manual) Macrocytosis (manual) Target Cells Tear Drop Cells Ovalocytes [place] Cells PT (9.8-13.1) Seconds INR APTT (25.6-37.1) Seconds pCO2 (35-45) mm/Hg pO2 (80-100) mm/Hg HCO3 (21-28) mmol/L ABG pH (7.35-7.45) ABG Total CO2 (22-28) mmol/L ABG O2 Saturation (95-98) % ABG O2 Content (15-23) ML/dL ABG Base Excess (-2.0-3.0) mmol/L ABG Hemoglobin (11.7-17.4) g/dL ABG Carboxyhemoglobin (0.5-1.5) % POC ABG HHb (Measured) (0.0-5.0) % ABG Methemoglobin (0.0-3.0) % ABG O2 Capacity (16-24) mL/dL [place] Test ABG Potassium (3.6-5.2) mmol/L VBG pH (7.32-7.43) VBG pCO2 (40-60) mmHg VBG HCO3 mmol/L VBG Total CO2 (22-28) mmol/L VBG O2 Sat (Calc) (40-65) % VBG Base Excess (0.0-2.0) mmol/L VBG Potassium (3.6-5.2) mmol/L A-a O2 Difference mm/Hg Hgb O2 Saturation (95.0-98.0) % Sodium (132-148) mmol/L Chloride (98-107) mmol/L Glucose (65-105) mg/dL Lactate (0.7-2.1) mmol/L FiO2 % Blood Gas Comments Crit Value Called To Crit Value Called By Crit Value Read Back Blood Gas Notified Time Potassium (3.6-5.0) MMOL/L Carbon Dioxide (22-30) mmol/L Anion Gap (10-20) BUN (7-17) mg/dl Creatinine (0.7-1.2) mg/dl Est GFR ( Amer) Est GFR (Non-Af Amer) POC Glucose (mg/dL) (65-110) mg/dL Random Glucose (65-105) mg/dL Lactic Acid (0.7-2.1) mmol/L Calcium (8.4-10.2) mg/dL Phosphorus 9.3 H (2.5-4.5) mg/dl Magnesium 2.0 (1.6-2.3) MG/DL Total Bilirubin (0.2-1.3) mg/dl AST (14-36) U/L ALT (9-52) U/L Alkaline Phosphatase (38-126) U/L Ammonia (11-51) umo/L Troponin I (0.00-0.120) ng/mL NT-Pro-B Natriuret Pep (0-900) pg/ml Total Protein (6.3-8.2) G/DL Albumin (3.5-5.0) g/dL Globulin (2.2-3.9) gm/dL Albumin/Globulin Ratio (1.0-2.1) Arterial Blood Potassium (3.6-5.2) mmol/L Venous Blood Potassium (3.6-5.2) mmol/L Urine Color [place] (YELLOW) Urine Clarity Turbid (Clear) Urine pH 6.0 (5.0-8.0) Ur Specific [place] 1.013 (1.003-1.030) Urine Protein 100 (NEGATIVE) mg/dL Urine Glucose (UA) Neg (NEGATIVE) mg/dL Urine Ketones Negative (NEGATIVE) mg/dL Urine Blood Moderate (NEGATIVE) Urine Nitrate Negative (NEGATIVE) Urine Bilirubin Negative (NEGATIVE) Urine Urobilinogen 4.0 H (0.2-1.0) mg/dL Ur Leukocyte Esterase Neg (Negative) Brittney/uL Urine RBC (Auto) 6 H (0-3) /hpf Urine Microscopic WBC 4 (0-5) /hpf Ur Squamous Epith Cells 2 (0-5) /hpf Amorphous Sediment Few H (<OCC) /ul Urine Bacteria Occ H (<OCC) Hyaline Casts 11-20 H (0-2) /hpf Urine Opiates Screen Negative (NEGATIVE) Urine Methadone Screen Negative (NEGATIVE) Ur Barbiturates Screen Negative (NEGATIVE) Ur Phencyclidine Scrn Negative (NEGATIVE) Ur Amphetamines Screen Negative (NEGATIVE) U Benzodiazepines Scrn Negative (NEGATIVE) U Oth Cocaine Metabols Negative (NEGATIVE) U Cannabinoids Screen Negative (NEGATIVE) Alcohol, Quantitative (0-10) mg/dl 07/29/18 07/29/18 07/29/18 Range/Units 14:29 13:48 13:48 WBC 24.8 H D (4.8-10.8) K/uL RBC 4.31 (3.80-5.20) Mil/uL Hgb 10.5 L (12.0-16.0) g/dL Hct 34.7 (34.0-47.0) % MCV 80.4 L D (81.0-99.0) fl MCH 24.2 L (27.0-31.0) pg MCHC 30.1 L (33.0-37.0) g/dL RDW 20.1 H (11.5-14.5) % Plt Count 140 (130-400) K/uL MPV 8.2 (7.2-11.7) fl Neut % (Auto) 88.0 H (50.0-75.0) % Lymph % (Auto) 4.4 L (20.0-40.0) % Hill % (Auto) 7.4 (0.0-10.0) % Eos % (Auto) 0.0 (0.0-4.0) % Baso % (Auto) 0.2 (0.0-2.0) % Neut # (Auto) 21.8 H (1.8-7.0) K/uL Lymph # (Auto) 1.1 (1.0-4.3) K/uL Hill # (Auto) 1.8 H (0.0-0.8) K/uL Eos # (Auto) 0.0 (0.0-0.7) K/uL Baso # (Auto) 0.1 (0.0-0.2) K/uL Neutrophils % (Manual) 83 H (42-75) % Lymphocytes % (Manual) 10 L (20-50) % Monocytes % (Manual) 7 (0-10) % Eosinophils % (Manual) (0-7) % Platelet Estimate Slightly decreased L (NORMAL) Large Platelets Present Hypochromasia (manual) Slight Poikilocytosis (manual Slight Anisocytosis (manual) Moderate Microcytosis (manual) Slight Macrocytosis (manual) Slight Target Cells Tear Drop Cells Slight Ovalocytes Moderate [place] Cells PT (9.8-13.1) Seconds INR APTT (25.6-37.1) Seconds pCO2 (35-45) mm/Hg pO2 21 L (80-100) mm/Hg HCO3 (21-28) mmol/L ABG pH (7.35-7.45) ABG Total CO2 (22-28) mmol/L ABG O2 Saturation (95-98) % ABG O2 Content (15-23) ML/dL ABG Base Excess (-2.0-3.0) mmol/L ABG Hemoglobin (11.7-17.4) g/dL ABG Carboxyhemoglobin (0.5-1.5) % POC ABG HHb (Measured) (0.0-5.0) % ABG Methemoglobin (0.0-3.0) % ABG O2 Capacity (16-24) mL/dL [place] Test ABG Potassium (3.6-5.2) mmol/L VBG pH 7.10 L* (7.32-7.43) VBG pCO2 80 H* (40-60) mmHg VBG HCO3 18.6 mmol/L VBG Total CO2 27.3 (22-28) mmol/L VBG O2 Sat (Calc) 26.8 L (40-65) % VBG Base Excess -6.0 L (0.0-2.0) mmol/L VBG Potassium 4.1 (3.6-5.2) mmol/L A-a O2 Difference mm/Hg Hgb O2 Saturation (95.0-98.0) % Sodium 142.0 143 (132-148) mmol/L Chloride 105.0 101 (98-107) mmol/L Glucose 141 H (65-105) mg/dL Lactate 8.5 H* (0.7-2.1) mmol/L FiO2 28.0 % Blood Gas Comments Crit Value Called To Dr myra lawson m.d. Crit Value Called By Dariana Crit Value Read Back Y Blood Gas Notified Time 1452 Potassium 4.1 (3.6-5.0) MMOL/L Carbon Dioxide 22 (22-30) mmol/L Anion Gap 24 H (10-20) BUN 22 H (7-17) mg/dl Creatinine 2.2 H (0.7-1.2) mg/dl Est GFR ( Amer) 28 Est GFR (Non-Af Amer) 23 POC Glucose (mg/dL) (65-110) mg/dL Random Glucose 147 H (65-105) mg/dL Lactic Acid (0.7-2.1) mmol/L Calcium 8.7 (8.4-10.2) mg/dL Phosphorus (2.5-4.5) mg/dl Magnesium (1.6-2.3) MG/DL Total Bilirubin 2.5 H (0.2-1.3) mg/dl AST 1555 H (14-36) U/L ALT 1303 H (9-52) U/L Alkaline Phosphatase 127 H D (38-126) U/L Ammonia (11-51) umo/L Troponin I 0.2710 H* (0.00-0.120) ng/mL NT-Pro-B Natriuret Pep 2820 H (0-900) pg/ml Total Protein 7.5 (6.3-8.2) G/DL Albumin 3.8 (3.5-5.0) g/dL Globulin 3.8 (2.2-3.9) gm/dL Albumin/Globulin Ratio 1.0 (1.0-2.1) Arterial Blood Potassium (3.6-5.2) mmol/L Venous Blood Potassium 4.1 (3.6-5.2) mmol/L Urine Color (YELLOW) Urine Clarity (Clear) Urine pH (5.0-8.0) Ur Specific [place] (1.003-1.030) Urine Protein (NEGATIVE) mg/dL Urine Glucose (UA) (NEGATIVE) mg/dL Urine Ketones (NEGATIVE) mg/dL Urine Blood (NEGATIVE) Urine Nitrate (NEGATIVE) Urine Bilirubin (NEGATIVE) Urine Urobilinogen (0.2-1.0) mg/dL Ur Leukocyte Esterase (Negative) Brittney/uL Urine RBC (Auto) (0-3) /hpf Urine Microscopic WBC (0-5) /hpf Ur Squamous Epith Cells (0-5) /hpf Amorphous Sediment (<OCC) /ul Urine Bacteria (<OCC) Hyaline Casts (0-2) /hpf Urine Opiates Screen (NEGATIVE) Urine Methadone Screen (NEGATIVE) Ur Barbiturates Screen (NEGATIVE) Ur Phencyclidine Scrn (NEGATIVE) Ur Amphetamines Screen (NEGATIVE) U Benzodiazepines Scrn (NEGATIVE) U Oth Cocaine Metabols (NEGATIVE) U Cannabinoids Screen (NEGATIVE) Alcohol, Quantitative < 10 (0-10) mg/dl 07/29/18 07/29/18 Range/Units 13:36 13:32 WBC (4.8-10.8) K/uL RBC (3.80-5.20) Mil/uL Hgb (12.0-16.0) g/dL Hct (34.0-47.0) % MCV (81.0-99.0) fl MCH (27.0-31.0) pg MCHC (33.0-37.0) g/dL RDW (11.5-14.5) % Plt Count (130-400) K/uL MPV (7.2-11.7) fl Neut % (Auto) (50.0-75.0) % Lymph % (Auto) (20.0-40.0) % Hill % (Auto) (0.0-10.0) % Eos % (Auto) (0.0-4.0) % Baso % (Auto) (0.0-2.0) % Neut # (Auto) (1.8-7.0) K/uL Lymph # (Auto) (1.0-4.3) K/uL [place] # (Auto) (0.0-0.8) K/uL Eos # (Auto) (0.0-0.7) K/uL Baso # (Auto) (0.0-0.2) K/uL Neutrophils % (Manual) (42-75) % Lymphocytes % (Manual) (20-50) % Monocytes % (Manual) (0-10) % Eosinophils % (Manual) (0-7) % Platelet Estimate (NORMAL) Large Platelets Hypochromasia (manual) Poikilocytosis (manual Anisocytosis (manual) Microcytosis (manual) Macrocytosis (manual) Target Cells Tear Drop Cells Ovalocytes [place] Cells PT (9.8-13.1) Seconds INR APTT (25.6-37.1) Seconds pCO2 39 (35-45) mm/Hg pO2 50 L (80-100) mm/Hg HCO3 18.9 L (21-28) mmol/L ABG pH 7.29 L (7.35-7.45) ABG Total CO2 20.0 L (22-28) mmol/L ABG O2 Saturation 88.8 L (95-98) % ABG O2 Content (15-23) ML/dL ABG Base Excess -7.3 L (-2.0-3.0) mmol/L ABG Hemoglobin (11.7-17.4) g/dL ABG Carboxyhemoglobin (0.5-1.5) % POC ABG HHb (Measured) (0.0-5.0) % ABG Methemoglobin (0.0-3.0) % ABG O2 Capacity (16-24) mL/dL [place] Test Yes ABG Potassium 4.1 (3.6-5.2) mmol/L VBG pH (7.32-7.43) VBG pCO2 (40-60) mmHg VBG HCO3 mmol/L VBG Total CO2 (22-28) mmol/L VBG O2 Sat (Calc) (40-65) % VBG Base Excess (0.0-2.0) mmol/L VBG Potassium (3.6-5.2) mmol/L A-a O2 Difference 51.0 mm/Hg Hgb O2 Saturation (95.0-98.0) % Sodium 137.0 (132-148) mmol/L Chloride 105.0 (98-107) mmol/L Glucose 210 H (65-105) mg/dL Lactate 6.8 H* (0.7-2.1) mmol/L FiO2 21.0 % Blood Gas Comments Ra 21 Crit Value Called To Dr myra lawson m.d. Crit Value Called By Dariana Crit Value Read Back Y Blood Gas Notified Time 1350 Potassium (3.6-5.0) MMOL/L Carbon Dioxide (22-30) mmol/L Anion Gap (10-20) BUN (7-17) mg/dl Creatinine (0.7-1.2) mg/dl Est GFR ( Amer) Est GFR (Non-Af Amer) POC Glucose (mg/dL) 138 H (65-110) mg/dL Random Glucose (65-105) mg/dL Lactic Acid (0.7-2.1) mmol/L Calcium (8.4-10.2) mg/dL Phosphorus (2.5-4.5) mg/dl Magnesium (1.6-2.3) MG/DL Total Bilirubin (0.2-1.3) mg/dl AST (14-36) U/L ALT (9-52) U/L Alkaline Phosphatase (38-126) U/L Ammonia (11-51) umo/L Troponin I (0.00-0.120) ng/mL NT-Pro-B Natriuret Pep (0-900) pg/ml Total Protein (6.3-8.2) G/DL Albumin (3.5-5.0) g/dL Globulin (2.2-3.9) gm/dL Albumin/Globulin Ratio (1.0-2.1) Arterial Blood Potassium 4.1 (3.6-5.2) mmol/L Venous Blood Potassium (3.6-5.2) mmol/L Urine Color (YELLOW) Urine Clarity (Clear) Urine pH (5.0-8.0) Ur Specific [place] (1.003-1.030) Urine Protein (NEGATIVE) mg/dL Urine Glucose (UA) (NEGATIVE) mg/dL Urine Ketones (NEGATIVE) mg/dL Urine Blood (NEGATIVE) Urine Nitrate (NEGATIVE) Urine Bilirubin (NEGATIVE) Urine Urobilinogen (0.2-1.0) mg/dL Ur Leukocyte Esterase (Negative) Brittney/uL Urine RBC (Auto) (0-3) /hpf Urine Microscopic WBC (0-5) /hpf Ur Squamous Epith Cells (0-5) /hpf Amorphous Sediment (<OCC) /ul Urine Bacteria (<OCC) Hyaline Casts (0-2) /hpf Urine Opiates Screen (NEGATIVE) Urine Methadone Screen (NEGATIVE) Ur Barbiturates Screen (NEGATIVE) Ur Phencyclidine Scrn (NEGATIVE) Ur Amphetamines Screen (NEGATIVE) U Benzodiazepines Scrn (NEGATIVE) U Oth Cocaine Metabols (NEGATIVE) U Cannabinoids Screen (NEGATIVE) Alcohol, Quantitative (0-10) mg/dl Laboratory Results - last 24 hr 07/29/18 07/29/18 07/29/18 13:32 13:36 13:48 WBC RBC Hgb Hct MCV MCH MCHC RDW Plt Count MPV Neut % (Auto) Lymph % (Auto) [place] % (Auto) Eos % (Auto) Baso % (Auto) Neut # (Auto) Lymph # (Auto) [place] # (Auto) Eos # (Auto) Baso # (Auto) Neutrophils % (Manual) Lymphocytes % (Manual) Monocytes % (Manual) Eosinophils % (Manual) Platelet Estimate Large Platelets Hypochromasia (manual) Poikilocytosis (manual Anisocytosis (manual) Microcytosis (manual) Macrocytosis (manual) Target Cells Tear Drop Cells Ovalocytes [place] Cells PT INR APTT pCO2 39 pO2 50 L HCO3 18.9 L ABG pH 7.29 L ABG Total CO2 20.0 L ABG O2 Saturation 88.8 L ABG O2 Content ABG Base Excess -7.3 L ABG Hemoglobin ABG Carboxyhemoglobin POC ABG HHb (Measured) ABG Methemoglobin ABG O2 Capacity [place] Test Yes ABG Potassium 4.1 VBG pH VBG pCO2 VBG HCO3 VBG Total CO2 VBG O2 Sat (Calc) VBG Base Excess VBG Potassium A-a O2 Difference 51.0 Hgb O2 Saturation Sodium 137.0 143 Chloride 105.0 101 Glucose 210 H Lactate 6.8 H* FiO2 21.0 Blood Gas Comments Ra 21 Crit Value Called To Dr myra lawson m.d. Crit Value Called By Dariana Crijayden Value Read Back Y Blood Gas Notified Time 1350 Potassium 4.1 Carbon Dioxide 22 Anion Gap 24 H BUN 22 H Creatinine 2.2 H Est GFR ( Amer) 28 Est GFR (Non-Af Amer) 23 POC Glucose (mg/dL) 138 H Random Glucose 147 H Lactic Acid Calcium 8.7 Phosphorus Magnesium Total Bilirubin 2.5 H AST 1555 H ALT 1303 H Alkaline Phosphatase 127 H D Ammonia Troponin I 0.2710 H* NT-Pro-B Natriuret Pep 2820 H Total Protein 7.5 Albumin 3.8 Globulin 3.8 Albumin/Globulin Ratio 1.0 Arterial Blood Potassium 4.1 Venous Blood Potassium Urine Color Urine Clarity Urine pH Ur Specific [place] Urine Protein Urine Glucose (UA) Urine Ketones Urine Blood Urine Nitrate Urine Bilirubin Urine Urobilinogen Ur Leukocyte Esterase Urine RBC (Auto) Urine Microscopic WBC Ur Squamous Epith Cells Amorphous Sediment Urine Bacteria Hyaline Casts Urine Opiates Screen Urine Methadone Screen Ur Barbiturates Screen Ur Phencyclidine Scrn Ur Amphetamines Screen U Benzodiazepines Scrn U Oth Cocaine Metabols U Cannabinoids Screen Alcohol, Quantitative < 10 07/29/18 07/29/18 07/29/18 13:48 14:29 14:50 WBC 24.8 H D RBC 4.31 Hgb 10.5 L Hct 34.7 MCV 80.4 L D MCH 24.2 L MCHC 30.1 L RDW 20.1 H Plt Count 140 MPV 8.2 Neut % (Auto) 88.0 H Lymph % (Auto) 4.4 L [place] % (Auto) 7.4 Eos % (Auto) 0.0 Baso % (Auto) 0.2 Neut # (Auto) 21.8 H Lymph # (Auto) 1.1 [place] # (Auto) 1.8 H Eos # (Auto) 0.0 Baso # (Auto) 0.1 Neutrophils % (Manual) 83 H Lymphocytes % (Manual) 10 L Monocytes % (Manual) 7 Eosinophils % (Manual) Platelet Estimate Slightly decreased L Large Platelets Present Hypochromasia (manual) Slight Poikilocytosis (manual Slight Anisocytosis (manual) Moderate Microcytosis (manual) Slight Macrocytosis (manual) Slight Target Cells Tear Drop Cells Slight Ovalocytes Moderate [place] Cells PT INR APTT pCO2 pO2 21 L HCO3 ABG pH ABG Total CO2 ABG O2 Saturation ABG O2 Content ABG Base Excess ABG Hemoglobin ABG Carboxyhemoglobin POC ABG HHb (Measured) ABG Methemoglobin ABG O2 Capacity [place] Test ABG Potassium VBG pH 7.10 L* VBG pCO2 80 H* VBG HCO3 18.6 VBG Total CO2 27.3 VBG O2 Sat (Calc) 26.8 L VBG Base Excess -6.0 L VBG Potassium 4.1 A-a O2 Difference Hgb O2 Saturation Sodium 142.0 Chloride 105.0 Glucose 141 H Lactate 8.5 H* FiO2 28.0 Blood Gas Comments Crit Value Called To Dr myra lawson m.d. Crit Value Called By Dariana Crit Value Read Back Y Blood Gas Notified Time 1452 Potassium Carbon Dioxide Anion Gap BUN Creatinine Est GFR ( Amer) Est GFR (Non-Af Amer) POC Glucose (mg/dL) Random Glucose Lactic Acid Calcium Phosphorus Magnesium Total Bilirubin AST ALT Alkaline Phosphatase Ammonia Troponin I NT-Pro-B Natriuret Pep Total Protein Albumin Globulin Albumin/Globulin Ratio Arterial Blood Potassium Venous Blood Potassium 4.1 Urine Color Urine Clarity Urine pH Ur Specific [place] Urine Protein Urine Glucose (UA) Urine Ketones Urine Blood Urine Nitrate Urine Bilirubin Urine Urobilinogen Ur Leukocyte Esterase Urine RBC (Auto) Urine Microscopic WBC Ur Squamous Epith Cells Amorphous Sediment Urine Bacteria Hyaline Casts Urine Opiates Screen Negative Urine Methadone Screen Negative Ur Barbiturates Screen Negative Ur Phencyclidine Scrn Negative Ur Amphetamines Screen Negative U Benzodiazepines Scrn Negative U Oth Cocaine Metabols Negative U Cannabinoids Screen Negative Alcohol, Quantitative 07/29/18 07/29/18 07/29/18 14:50 14:50 14:50 WBC RBC Hgb Hct MCV MCH MCHC RDW Plt Count MPV Neut % (Auto) Lymph % (Auto) [place] % (Auto) Eos % (Auto) Baso % (Auto) Neut # (Auto) Lymph # (Auto) [place] # (Auto) Eos # (Auto) Baso # (Auto) Neutrophils % (Manual) Lymphocytes % (Manual) Monocytes % (Manual) Eosinophils % (Manual) Platelet Estimate Large Platelets Hypochromasia (manual) Poikilocytosis (manual Anisocytosis (manual) Microcytosis (manual) Macrocytosis (manual) Target Cells Tear Drop Cells Ovalocytes [place] Cells PT 21.5 H INR 1.9 APTT 44.5 H pCO2 pO2 HCO3 ABG pH ABG Total CO2 ABG O2 Saturation ABG O2 Content ABG Base Excess ABG Hemoglobin ABG Carboxyhemoglobin POC ABG HHb (Measured) ABG Methemoglobin ABG O2 Capacity [place] Test ABG Potassium VBG pH VBG pCO2 VBG HCO3 VBG Total CO2 VBG O2 Sat (Calc) VBG Base Excess VBG Potassium A-a O2 Difference Hgb O2 Saturation Sodium Chloride Glucose Lactate FiO2 Blood Gas Comments Crit Value Called To Crit Value Called By Crit Value Read Back Blood Gas Notified Time Potassium Carbon Dioxide Anion Gap BUN Creatinine Est GFR ( Amer) Est GFR (Non-Af Amer) POC Glucose (mg/dL) Random Glucose Lactic Acid Calcium Phosphorus 9.3 H Magnesium 2.0 Total Bilirubin AST ALT Alkaline Phosphatase Ammonia Troponin I NT-Pro-B Natriuret Pep Total Protein Albumin Globulin Albumin/Globulin Ratio Arterial Blood Potassium Venous Blood Potassium Urine Color [place] Urine Clarity Turbid Urine pH 6.0 Ur Specific [place] 1.013 Urine Protein 100 Urine Glucose (UA) Neg Urine Ketones Negative Urine Blood Moderate Urine Nitrate Negative Urine Bilirubin Negative Urine Urobilinogen 4.0 H Ur Leukocyte Esterase Neg Urine RBC (Auto) 6 H Urine Microscopic WBC 4 Ur Squamous Epith Cells 2 Amorphous Sediment Few H Urine Bacteria Occ H Hyaline Casts 11-20 H Urine Opiates Screen Urine Methadone Screen Ur Barbiturates Screen Ur Phencyclidine Scrn Ur Amphetamines Screen U Benzodiazepines Scrn U Oth Cocaine Metabols U Cannabinoids Screen Alcohol, Quantitative 07/29/18 07/29/18 07/29/18 16:48 18:54 19:48 WBC RBC Hgb Hct MCV MCH MCHC RDW Plt Count MPV Neut % (Auto) Lymph % (Auto) [place] % (Auto) Eos % (Auto) Baso % (Auto) Neut # (Auto) Lymph # (Auto) [place] # (Auto) Eos # (Auto) Baso # (Auto) Neutrophils % (Manual) Lymphocytes % (Manual) Monocytes % (Manual) Eosinophils % (Manual) Platelet Estimate Large Platelets Hypochromasia (manual) Poikilocytosis (manual Anisocytosis (manual) Microcytosis (manual) Macrocytosis (manual) Target Cells Tear Drop Cells Ovalocytes [place] Cells PT INR APTT pCO2 pO2 31 HCO3 ABG pH ABG Total CO2 ABG O2 Saturation ABG O2 Content ABG Base Excess ABG Hemoglobin ABG Carboxyhemoglobin POC ABG HHb (Measured) ABG Methemoglobin ABG O2 Capacity [place] Test ABG Potassium VBG pH 7.15 L* VBG pCO2 60 VBG HCO3 16.6 VBG Total CO2 22.7 VBG O2 Sat (Calc) 54.4 VBG Base Excess -8.7 L VBG Potassium 4.2 A-a O2 Difference Hgb O2 Saturation Sodium 138.0 Chloride 105.0 Glucose 105 Lactate 7.8 H* FiO2 21.0 Blood Gas Comments Crit Value Called To Tejinder walter md Crit Value Called By Ann hirsch Crit Value Read Back Y Blood Gas Notified Time 1655 Potassium Carbon Dioxide Anion Gap BUN Creatinine Est GFR ( Amer) Est GFR (Non-Af Amer) POC Glucose (mg/dL) 70 Random Glucose Lactic Acid Calcium Phosphorus Magnesium Total Bilirubin AST ALT Alkaline Phosphatase Ammonia Troponin I 1.7800 H* NT-Pro-B Natriuret Pep Total Protein Albumin Globulin Albumin/Globulin Ratio Arterial Blood Potassium Venous Blood Potassium 4.2 Urine Color Urine Clarity Urine pH Ur Specific [place] Urine Protein Urine Glucose (UA) Urine Ketones Urine Blood Urine Nitrate Urine Bilirubin Urine Urobilinogen Ur Leukocyte Esterase Urine RBC (Auto) Urine Microscopic WBC Ur Squamous Epith Cells Amorphous Sediment Urine Bacteria Hyaline Casts Urine Opiates Screen Urine Methadone Screen Ur Barbiturates Screen Ur Phencyclidine Scrn Ur Amphetamines Screen U Benzodiazepines Scrn U Oth Cocaine Metabols U Cannabinoids Screen Alcohol, Quantitative 07/29/18 07/29/18 07/29/18 19:48 20:18 21:00 WBC RBC Hgb Hct MCV MCH MCHC RDW Plt Count MPV Neut % (Auto) Lymph % (Auto) [place] % (Auto) Eos % (Auto) Baso % (Auto) Neut # (Auto) Lymph # (Auto) [place] # (Auto) Eos # (Auto) Baso # (Auto) Neutrophils % (Manual) Lymphocytes % (Manual) Monocytes % (Manual) Eosinophils % (Manual) Platelet Estimate Large Platelets Hypochromasia (manual) Poikilocytosis (manual Anisocytosis (manual) Microcytosis (manual) Macrocytosis (manual) Target Cells Tear Drop Cells Ovalocytes [place] Cells PT INR APTT pCO2 pO2 HCO3 ABG pH ABG Total CO2 ABG O2 Saturation ABG O2 Content ABG Base Excess ABG Hemoglobin ABG Carboxyhemoglobin POC ABG HHb (Measured) ABG Methemoglobin ABG O2 Capacity [place] Test ABG Potassium VBG pH VBG pCO2 VBG HCO3 VBG Total CO2 VBG O2 Sat (Calc) VBG Base Excess VBG Potassium A-a O2 Difference Hgb O2 Saturation Sodium Chloride Glucose Lactate FiO2 Blood Gas Comments Crit Value Called To Crit Value Called By Crit Value Read Back Blood Gas Notified Time Potassium Carbon Dioxide Anion Gap BUN Creatinine Est GFR ( Amer) Est GFR (Non-Af Amer) POC Glucose (mg/dL) 147 H Random Glucose Lactic Acid 6.0 H* Calcium Phosphorus Magnesium Total Bilirubin AST ALT Alkaline Phosphatase Ammonia 36 Troponin I NT-Pro-B Natriuret Pep Total Protein Albumin Globulin Albumin/Globulin Ratio Arterial Blood Potassium Venous Blood Potassium Urine Color Urine Clarity Urine pH Ur Specific [place] Urine Protein Urine Glucose (UA) Urine Ketones Urine Blood Urine Nitrate Urine Bilirubin Urine Urobilinogen Ur Leukocyte Esterase Urine RBC (Auto) Urine Microscopic WBC Ur Squamous Epith Cells Amorphous Sediment Urine Bacteria Hyaline Casts Urine Opiates Screen Urine Methadone Screen Ur Barbiturates Screen Ur Phencyclidine Scrn Ur Amphetamines Screen U Benzodiazepines Scrn U Oth Cocaine Metabols U Cannabinoids Screen Alcohol, Quantitative 07/29/18 07/29/18 07/30/18 21:58 23:08 00:19 WBC RBC Hgb Hct MCV MCH MCHC RDW Plt Count MPV Neut % (Auto) Lymph % (Auto) [place] % (Auto) Eos % (Auto) Baso % (Auto) Neut # (Auto) Lymph # (Auto) Hill # (Auto) Eos # (Auto) Baso # (Auto) Neutrophils % (Manual) Lymphocytes % (Manual) Monocytes % (Manual) Eosinophils % (Manual) Platelet Estimate Large Platelets Hypochromasia (manual) Poikilocytosis (manual Anisocytosis (manual) Microcytosis (manual) Macrocytosis (manual) Target Cells Tear Drop Cells Ovalocytes [place]annette Cells PT INR APTT pCO2 48 H pO2 154 H HCO3 16.9 L ABG pH 7.18 L* ABG Total CO2 19.4 L ABG O2 Saturation 100.2 H ABG O2 Content 16.3 ABG Base Excess -10.3 L ABG Hemoglobin 11.8 ABG Carboxyhemoglobin 1.9 H POC ABG HHb (Measured) -0.2 L ABG Methemoglobin 1.9 ABG O2 Capacity 16.3 [place] Test Yes ABG Potassium VBG pH VBG pCO2 VBG HCO3 VBG Total CO2 VBG O2 Sat (Calc) VBG Base Excess VBG Potassium A-a O2 Difference -14.0 Hgb O2 Saturation 96.4 Sodium Chloride Glucose Lactate FiO2 28.0 Blood Gas Comments Crit Value Called To Prieto maryellen rn Crit Value Called By 333 Crit Value Read Back Y Blood Gas Notified Time 2320 Potassium Carbon Dioxide Anion Gap BUN Creatinine Est GFR ( Amer) Est GFR (Non-Af Amer) POC Glucose (mg/dL) 132 H 151 H Random Glucose Lactic Acid Calcium Phosphorus Magnesium Total Bilirubin AST ALT Alkaline Phosphatase Ammonia Troponin I NT-Pro-B Natriuret Pep Total Protein Albumin Globulin Albumin/Globulin Ratio Arterial Blood Potassium Venous Blood Potassium Urine Color Urine Clarity Urine pH Ur Specific [place] Urine Protein Urine Glucose (UA) Urine Ketones Urine Blood Urine Nitrate Urine Bilirubin Urine Urobilinogen Ur Leukocyte Esterase Urine RBC (Auto) Urine Microscopic WBC Ur Squamous Epith Cells Amorphous Sediment Urine Bacteria Hyaline Casts Urine Opiates Screen Urine Methadone Screen Ur Barbiturates Screen Ur Phencyclidine Scrn Ur Amphetamines Screen U Benzodiazepines Scrn U Oth Cocaine Metabols U Cannabinoids Screen Alcohol, Quantitative 07/30/18 07/30/18 07/30/18 02:11 04:10 04:50 WBC RBC Hgb Hct MCV MCH MCHC RDW Plt Count MPV Neut % (Auto) Lymph % (Auto) Hill % (Auto) Eos % (Auto) Baso % (Auto) Neut # (Auto) Lymph # (Auto) Hill # (Auto) Eos # (Auto) Baso # (Auto) Neutrophils % (Manual) Lymphocytes % (Manual) Monocytes % (Manual) Eosinophils % (Manual) Platelet Estimate Large Platelets Hypochromasia (manual) Poikilocytosis (manual Anisocytosis (manual) Microcytosis (manual) Macrocytosis (manual) Target Cells Tear Drop Cells Ovalocytes [place] Cells PT INR APTT pCO2 pO2 HCO3 ABG pH ABG Total CO2 ABG O2 Saturation ABG O2 Content ABG Base Excess ABG Hemoglobin ABG Carboxyhemoglobin POC ABG HHb (Measured) ABG Methemoglobin ABG O2 Capacity [place] Test ABG Potassium VBG pH VBG pCO2 VBG HCO3 VBG Total CO2 VBG O2 Sat (Calc) VBG Base Excess VBG Potassium A-a O2 Difference Hgb O2 Saturation Sodium Chloride Glucose Lactate FiO2 Blood Gas Comments Crit Value Called To Crit Value Called By Crit Value Read Back Blood Gas Notified Time Potassium Carbon Dioxide Anion Gap BUN Creatinine Est GFR ( Amer) Est GFR (Non-Af Amer) POC Glucose (mg/dL) 188 H 148 H Random Glucose Lactic Acid 3.9 H Calcium Phosphorus Magnesium Total Bilirubin AST ALT Alkaline Phosphatase Ammonia Troponin I NT-Pro-B Natriuret Pep Total Protein Albumin Globulin Albumin/Globulin Ratio Arterial Blood Potassium Venous Blood Potassium Urine Color Urine Clarity Urine pH Ur Specific [place] Urine Protein Urine Glucose (UA) Urine Ketones Urine Blood Urine Nitrate Urine Bilirubin Urine Urobilinogen Ur Leukocyte Esterase Urine RBC (Auto) Urine Microscopic WBC Ur Squamous Epith Cells Amorphous Sediment Urine Bacteria Hyaline Casts Urine Opiates Screen Urine Methadone Screen Ur Barbiturates Screen Ur Phencyclidine Scrn Ur Amphetamines Screen U Benzodiazepines Scrn U Oth Cocaine Metabols U Cannabinoids Screen Alcohol, Quantitative 07/30/18 07/30/18 07/30/18 04:50 04:50 05:12 WBC 31.5 H RBC 4.31 Hgb 10.4 L Hct 34.0 MCV 78.8 L MCH 24.1 L MCHC 30.6 L RDW 19.8 H Plt Count 138 MPV 9.2 Neut % (Auto) 91.4 H Lymph % (Auto) 3.4 L Hill % (Auto) 5.0 Eos % (Auto) 0.0 Baso % (Auto) 0.2 Neut # (Auto) 28.8 H Lymph # (Auto) 1.1 Hill # (Auto) 1.6 H Eos # (Auto) 0.0 Baso # (Auto) 0.1 Neutrophils % (Manual) 92 H Lymphocytes % (Manual) 4 L Monocytes % (Manual) 2 Eosinophils % (Manual) 2 Platelet Estimate Normal Large Platelets Hypochromasia (manual) Slight Poikilocytosis (manual Anisocytosis (manual) Slight Microcytosis (manual) Slight Macrocytosis (manual) Target Cells Slight Tear Drop Cells Ovalocytes [place] Cells Slight PT INR APTT pCO2 48 H pO2 105 H HCO3 19.7 L ABG pH 7.24 L ABG Total CO2 22.1 ABG O2 Saturation 99.8 H ABG O2 Content 15.0 ABG Base Excess -6.7 L ABG Hemoglobin 11.0 L ABG Carboxyhemoglobin 2.1 H POC ABG HHb (Measured) 0.2 ABG Methemoglobin 1.7 ABG O2 Capacity 15.0 L [place] Test Yes ABG Potassium VBG pH VBG pCO2 VBG HCO3 VBG Total CO2 VBG O2 Sat (Calc) VBG Base Excess VBG Potassium A-a O2 Difference 35.0 Hgb O2 Saturation 96.0 Sodium 138 Chloride 101 Glucose Lactate FiO2 28.0 Blood Gas Comments Crit Value Called To Crit Value Called By Crit Value Read Back Blood Gas Notified Time Potassium 4.8 Carbon Dioxide 21 L Anion Gap 21 H BUN 31 H Creatinine 2.6 H Est GFR ( Amer) 23 Est GFR (Non-Af Amer) 19 POC Glucose (mg/dL) Random Glucose 231 H Lactic Acid Calcium 7.3 L Phosphorus Magnesium Total Bilirubin 2.3 H AST 6852 H ALT 3395 H Alkaline Phosphatase 124 Ammonia Troponin I 3.6000 H* NT-Pro-B Natriuret Pep Total Protein 6.4 Albumin 2.7 L D Globulin 3.6 Albumin/Globulin Ratio 0.7 L Arterial Blood Potassium Venous Blood Potassium Urine Color Urine Clarity Urine pH Ur Specific [place] Urine Protein Urine Glucose (UA) Urine Ketones Urine Blood Urine Nitrate Urine Bilirubin Urine Urobilinogen Ur Leukocyte Esterase Urine RBC (Auto) Urine Microscopic WBC Ur Squamous Epith Cells Amorphous Sediment Urine Bacteria Hyaline Casts Urine Opiates Screen Urine Methadone Screen Ur Barbiturates Screen Ur Phencyclidine Scrn Ur Amphetamines Screen U Benzodiazepines Scrn U Oth Cocaine Metabols U Cannabinoids Screen Alcohol, Quantitative 07/30/18 07/30/18 05:46 07:54 WBC RBC Hgb Hct MCV MCH MCHC RDW Plt Count MPV Neut % (Auto) Lymph % (Auto) Hill % (Auto) Eos % (Auto) Baso % (Auto) Neut # (Auto) Lymph # (Auto) Hill # (Auto) Eos # (Auto) Baso # (Auto) Neutrophils % (Manual) Lymphocytes % (Manual) Monocytes % (Manual) Eosinophils % (Manual) Platelet Estimate Large Platelets Hypochromasia (manual) Poikilocytosis (manual Anisocytosis (manual) Microcytosis (manual) Macrocytosis (manual) Target Cells Tear Drop Cells Ovalocytes [place] Cells PT INR APTT pCO2 pO2 HCO3 ABG pH ABG Total CO2 ABG O2 Saturation ABG O2 Content ABG Base Excess ABG Hemoglobin ABG Carboxyhemoglobin POC ABG HHb (Measured) ABG Methemoglobin ABG O2 Capacity [place] Test ABG Potassium VBG pH VBG pCO2 VBG HCO3 VBG Total CO2 VBG O2 Sat (Calc) VBG Base Excess VBG Potassium A-a O2 Difference Hgb O2 Saturation Sodium Chloride Glucose Lactate FiO2 Blood Gas Comments Crit Value Called To Crit Value Called By Crit Value Read Back Blood Gas Notified Time Potassium Carbon Dioxide Anion Gap BUN Creatinine Est GFR ( Amer) Est GFR (Non-Af Amer) POC Glucose (mg/dL) 331 H 160 H Random Glucose Lactic Acid Calcium Phosphorus Magnesium Total Bilirubin AST ALT Alkaline Phosphatase Ammonia Troponin I NT-Pro-B Natriuret Pep Total Protein Albumin Globulin Albumin/Globulin Ratio Arterial Blood Potassium Venous Blood Potassium Urine Color Urine Clarity Urine pH Ur Specific [place] Urine Protein Urine Glucose (UA) Urine Ketones Urine Blood Urine Nitrate Urine Bilirubin Urine Urobilinogen Ur Leukocyte Esterase Urine RBC (Auto) Urine Microscopic WBC Ur Squamous Epith Cells Amorphous Sediment Urine Bacteria Hyaline Casts Urine Opiates Screen Urine Methadone Screen Ur Barbiturates Screen Ur Phencyclidine Scrn Ur Amphetamines Screen U Benzodiazepines Scrn U Oth Cocaine Metabols U Cannabinoids Screen Alcohol, Quantitative Radiology Impressions: Radiology Impressions Chest X-Ray 07/29/18 13:34 IMPRESSION: No active disease. Resolved right lower lobe infiltrate. Head CT 07/29/18 13:34 IMPRESSION: No acute intracranial abnormalities. No significant findings to account for the clinical presentation. Extensive postoperative changes described above. EKG/Cardiology Studies: Cardiology / EKG Studies 07/29/18 13:34 ELECTROCARDIOGRAM Stat Comment: Mode Of Transportation: Reason For Exam: SOB 07/30/18 EKG [ELECTROCARDIOGRAM] Stat Comment: Mode Of Transportation: PORTABLE Reason For Exam: elevated trop's Fingerstick Blood Sugar Results: 331 Assessment/Plan - Assessment and Plan (Free Text) Assessment: ASSESSMENT: Altered Mental status Possible causes are seizure, CVA, sepsis: work up being done. No hyercapnea, ammonia level is not high, drug screen is negative, had hypoglycemia, improved now Sepsis : So far no obvious source of infection. Possible aspiration PNA. C-diff colitis is another possibility,she has diarrhea, leukocytosis and was on antibiotics recently during her hospitalization. Cultures pending. JORGE A stage 3: Sepsis induced JORGE A/ATN : r/o obstruction, still oliguric after 5 liters of IVF, r/o rhabdomylysis as seizure is a possibility and AST, ALT hare high too ACS: Positive TNI and rising A fib: Rate controlled, on Lovenox Hypoglycemia : h/o DM , low BS , could be from sepsis or acute liver injury h/o CVA Drug abuse heroin ? As per ER record , pt told EMT she had consumed heroin but family does not know about it. Acute Liver Injury: Ischemic liver. Plan: PLAN: 1-Check CPK to r/o rhabdomyolysis 2-Blood culture, urine culture and stooll for c-diff, result pending 3-EEG being done, neurology on board 4-Continue Vancomycin, Azactam and Flagyl, ID consult 5-On Lovenox, treatment dose, due to a fib and rising TNI 6- Cardiology consult 7-CT abdomen, to r/o hydronephrosis as cause of JORGE A and to r/o any other obvious abdominal pathology, in view of high liver enzymes and leukocytosi. GI consult. 8-Continue slow IVF D5 1/2 NS
--- NOTE | 2018-07-30 08:35 | CP.PCM.CON ---
History of Present Illness - History of Present Illness History of Present Illness: 58 year old female with a past medical history of HTN, stroke, CABG, LA, diabetes and anemia, who presents to the emergency department accompanied with EMS after patient was found unconscious at home. Patient used heroine and was found unresponsive by family members, who called 911. En route, EMS administered 2mg of Narcan nasally and 0.4 mg intravenously. Patient was also given 2 AMPs of D50. Her initial sugar was 29 and her accucheck in the ER room was 138. Of note, patient was admitted on July 12 for asthma exacerbation. Pt remains obtunded ?? EKG: Atrial Flutter with varying block no change from prior EKG's Troponin: Positive ? secondary to ischemia ? secondary to total medical problems PMH: Asthma CVA CAD ?there is a midline sternal scar suggestive of Cardiac surgery ?? ? Brain surgery ?? Family does not know why??? family claims they know nothing about Heroin use Review of Systems - Review of Systems Systems not reviewed;Unavailable: Altered Mental Status Past Patient History - Past Medical History & Family History Past Medical History?: Yes - Past Social History Smoking Status: Former Smoker - CARDIAC Hx Cardiac Disorders: Yes Other/Comment: CABG - PULMONARY Hx Respiratory Disorders: Yes Hx Asthma: Yes Hx Bronchitis: Yes Hx Pneumonia: Yes - NEUROLOGICAL Hx Neurological Disorder: Yes HX Cerebrovascular Accident: Yes - HEENT Hx HEENT Problems: Yes Hx Cataracts: Yes - RENAL Hx Chronic Kidney Disease: No - ENDOCRINE/METABOLIC Hx Endocrine Disorders: No Hx Diabetes Mellitus Type 2: Yes - HEMATOLOGICAL/ONCOLOGICAL Hx Blood Disorders: Yes Hx Anemia: Yes - INTEGUMENTARY Hx Dermatological Problems: No - MUSCULOSKELETAL/RHEUMATOLOGICAL Hx Musculoskeletal Disorders: Yes Hx Arthritis: Yes Hx Falls: No - GASTROINTESTINAL Hx Gastrointestinal Disorders: Yes Hx Constipation: Yes - GENITOURINARY/GYNECOLOGICAL Hx Genitourinary Disorders: No - PSYCHIATRIC Hx Psychophysiologic Disorder: No Hx Substance Use: No - SURGICAL HISTORY Hx Surgeries: Yes Hx Cholecystectomy: Yes Hx Coronary Artery Bypass Graft: Yes Other/Comment: Brain hematoma surgery x4 - ANESTHESIA Hx Anesthesia: Yes Hx Anesthesia Reactions: No Meds Allergies/Adverse Reactions: Allergies Allergy/AdvReac Type Severity Reaction Status Date / Time Penicillins Allergy RASH Verified 07/12/18 13:53 latex AdvReac RASH Verified 07/12/18 13:53 - Medications Medications: Current Medications Albuterol/Ipratropium (Duoneb 3 Mg/0.5 Mg (3 Ml) Ud) 3 ml INH RQ6 PRN PRN Reason: Shortness of Breath Enoxaparin Sodium (Lovenox) 100 mg SC DAILY [place]; Protocol Vancomycin HCl 1 gm/ Sodium (Chloride) 250 mls @ 166.667 mls/hr IVPB DAILY [place]; Protocol Aztreonam 1 gm/ Sodium (Chloride) 100 mls @ 100 mls/hr IVPB Q8 [place]; Protocol Last Admin: 07/30/18 00:25 Dose: 100 mls/hr Metronidazole (Flagyl 500mg/100ml Ns) 100 mls @ 100 mls/hr IVPB Q8 [place]; Protocol Last Admin: 07/30/18 00:24 Dose: 100 mls/hr Levetiracetam 500 mg/ Sodium (Chloride) 105 mls @ 210 mls/hr IVPB Q12 [place] Dextrose/Sodium Chloride (Dextrose 5%/0.45% Ns 1000 Ml) 1,000 mls @ 50 mls/hr IV .Q20H [place] Stop: 07/31/18 08:30 Physical Exam - Constitutional Appears: Toxic, Confused Additional comments: Obtunded - Respiratory Exam Respiratory Exam: Decreased Breath Sounds - Cardiovascular Exam Cardiovascular Exam: Irregular Rhythm Additional comments: Midline sternal scar suggestive of prior cardiac surgery Results - Vital Signs Recent Vital Signs: Last Vital Signs Temp 98.8 F 07/30/18 04:00 Pulse 67 07/30/18 06:00 Resp 13 07/30/18 06:00 BP 94/53 L 07/30/18 06:00 Pulse Ox 99 07/30/18 06:00 - Labs Result Diagrams: 07/30/18 04:50 07/30/18 04:50 Labs: Laboratory Results - last 24 hr 07/29/18 07/29/18 07/29/18 13:32 13:36 13:48 WBC RBC Hgb Hct MCV MCH MCHC RDW Plt Count MPV Neut % (Auto) Lymph % (Auto) [place] % (Auto) Eos % (Auto) Baso % (Auto) Neut # (Auto) Lymph # (Auto) [place] # (Auto) Eos # (Auto) Baso # (Auto) Neutrophils % (Manual) Lymphocytes % (Manual) Monocytes % (Manual) Eosinophils % (Manual) Platelet Estimate Large Platelets Hypochromasia (manual) Poikilocytosis (manual Anisocytosis (manual) Microcytosis (manual) Macrocytosis (manual) Target Cells Tear Drop Cells Ovalocytes [place] Cells PT INR APTT pCO2 39 pO2 50 L HCO3 18.9 L ABG pH 7.29 L ABG Total CO2 20.0 L ABG O2 Saturation 88.8 L ABG O2 Content ABG Base Excess -7.3 L ABG Hemoglobin ABG Carboxyhemoglobin POC ABG HHb (Measured) ABG Methemoglobin ABG O2 Capacity [place] Test Yes ABG Potassium 4.1 VBG pH VBG pCO2 VBG HCO3 VBG Total CO2 VBG O2 Sat (Calc) VBG Base Excess VBG Potassium A-a O2 Difference 51.0 Hgb O2 Saturation Sodium 137.0 143 Chloride 105.0 101 Glucose 210 H Lactate 6.8 H* FiO2 21.0 Blood Gas Comments Ra 21 Crit Value Called To Dr myra lawson m.d. Crit Value Called By Dariana Crijayden Value Read Back Y Blood Gas Notified Time 1350 Potassium 4.1 Carbon Dioxide 22 Anion Gap 24 H BUN 22 H Creatinine 2.2 H Est GFR ( Amer) 28 Est GFR (Non-Af Amer) 23 POC Glucose (mg/dL) 138 H Random Glucose 147 H Lactic Acid Calcium 8.7 Phosphorus Magnesium Total Bilirubin 2.5 H AST 1555 H ALT 1303 H Alkaline Phosphatase 127 H D Ammonia Total Creatine Kinase Troponin I 0.2710 H* NT-Pro-B Natriuret Pep 2820 H Total Protein 7.5 Albumin 3.8 Globulin 3.8 Albumin/Globulin Ratio 1.0 Arterial Blood Potassium 4.1 Venous Blood Potassium Urine Color Urine Clarity Urine pH Ur Specific [place] Urine Protein Urine Glucose (UA) Urine Ketones Urine Blood Urine Nitrate Urine Bilirubin Urine Urobilinogen Ur Leukocyte Esterase Urine RBC (Auto) Urine Microscopic WBC Ur Squamous Epith Cells Amorphous Sediment Urine Bacteria Hyaline Casts Urine Opiates Screen Urine Methadone Screen Ur Barbiturates Screen Ur Phencyclidine Scrn Ur Amphetamines Screen U Benzodiazepines Scrn U Oth Cocaine Metabols U Cannabinoids Screen Alcohol, Quantitative < 10 07/29/18 07/29/18 07/29/18 13:48 14:29 14:50 WBC 24.8 H D RBC 4.31 Hgb 10.5 L Hct 34.7 MCV 80.4 L D MCH 24.2 L MCHC 30.1 L RDW 20.1 H Plt Count 140 MPV 8.2 Neut % (Auto) 88.0 H Lymph % (Auto) 4.4 L [place] % (Auto) 7.4 Eos % (Auto) 0.0 Baso % (Auto) 0.2 Neut # (Auto) 21.8 H Lymph # (Auto) 1.1 [place] # (Auto) 1.8 H Eos # (Auto) 0.0 Baso # (Auto) 0.1 Neutrophils % (Manual) 83 H Lymphocytes % (Manual) 10 L Monocytes % (Manual) 7 Eosinophils % (Manual) Platelet Estimate Slightly decreased L Large Platelets Present Hypochromasia (manual) Slight Poikilocytosis (manual Slight Anisocytosis (manual) Moderate Microcytosis (manual) Slight Macrocytosis (manual) Slight Target Cells Tear Drop Cells Slight Ovalocytes Moderate [place] Cells PT INR APTT pCO2 pO2 21 L HCO3 ABG pH ABG Total CO2 ABG O2 Saturation ABG O2 Content ABG Base Excess ABG Hemoglobin ABG Carboxyhemoglobin POC ABG HHb (Measured) ABG Methemoglobin ABG O2 Capacity [place] Test ABG Potassium VBG pH 7.10 L* VBG pCO2 80 H* VBG HCO3 18.6 VBG Total CO2 27.3 VBG O2 Sat (Calc) 26.8 L VBG Base Excess -6.0 L VBG Potassium 4.1 A-a O2 Difference Hgb O2 Saturation Sodium 142.0 Chloride 105.0 Glucose 141 H Lactate 8.5 H* FiO2 28.0 Blood Gas Comments Crit Value Called To Dr myra lawson m.d. Crit Value Called By Dariana Crit Value Read Back Y Blood Gas Notified Time 1452 Potassium Carbon Dioxide Anion Gap BUN Creatinine Est GFR ( Amer) Est GFR (Non-Af Amer) POC Glucose (mg/dL) Random Glucose Lactic Acid Calcium Phosphorus Magnesium Total Bilirubin AST ALT Alkaline Phosphatase Ammonia Total Creatine Kinase Troponin I NT-Pro-B Natriuret Pep Total Protein Albumin Globulin Albumin/Globulin Ratio Arterial Blood Potassium Venous Blood Potassium 4.1 Urine Color Urine Clarity Urine pH Ur Specific [place] Urine Protein Urine Glucose (UA) Urine Ketones Urine Blood Urine Nitrate Urine Bilirubin Urine Urobilinogen Ur Leukocyte Esterase Urine RBC (Auto) Urine Microscopic WBC Ur Squamous Epith Cells Amorphous Sediment Urine Bacteria Hyaline Casts Urine Opiates Screen Negative Urine Methadone Screen Negative Ur Barbiturates Screen Negative Ur Phencyclidine Scrn Negative Ur Amphetamines Screen Negative U Benzodiazepines Scrn Negative U Oth Cocaine Metabols Negative U Cannabinoids Screen Negative Alcohol, Quantitative 07/29/18 07/29/18 07/29/18 14:50 14:50 14:50 WBC RBC Hgb Hct MCV MCH MCHC RDW Plt Count MPV Neut % (Auto) Lymph % (Auto) [place] % (Auto) Eos % (Auto) Baso % (Auto) Neut # (Auto) Lymph # (Auto) [place] # (Auto) Eos # (Auto) Baso # (Auto) Neutrophils % (Manual) Lymphocytes % (Manual) Monocytes % (Manual) Eosinophils % (Manual) Platelet Estimate Large Platelets Hypochromasia (manual) Poikilocytosis (manual Anisocytosis (manual) Microcytosis (manual) Macrocytosis (manual) Target Cells Tear Drop Cells Ovalocytes Jeannette Cells PT 21.5 H INR 1.9 APTT 44.5 H pCO2 pO2 HCO3 ABG pH ABG Total CO2 ABG O2 Saturation ABG O2 Content ABG Base Excess ABG Hemoglobin ABG Carboxyhemoglobin POC ABG HHb (Measured) ABG Methemoglobin ABG O2 Capacity [place] Test ABG Potassium VBG pH VBG pCO2 VBG HCO3 VBG Total CO2 VBG O2 Sat (Calc) VBG Base Excess VBG Potassium A-a O2 Difference Hgb O2 Saturation Sodium Chloride Glucose Lactate FiO2 Blood Gas Comments Crit Value Called To Crit Value Called By Crit Value Read Back Blood Gas Notified Time Potassium Carbon Dioxide Anion Gap BUN Creatinine Est GFR ( Amer) Est GFR (Non-Af Amer) POC Glucose (mg/dL) Random Glucose Lactic Acid Calcium Phosphorus 9.3 H Magnesium 2.0 Total Bilirubin AST ALT Alkaline Phosphatase Ammonia Total Creatine Kinase Troponin I NT-Pro-B Natriuret Pep Total Protein Albumin Globulin Albumin/Globulin Ratio Arterial Blood Potassium Venous Blood Potassium Urine Color [place] Urine Clarity Turbid Urine pH 6.0 Ur Specific [place] 1.013 Urine Protein 100 Urine Glucose (UA) Neg Urine Ketones Negative Urine Blood Moderate Urine Nitrate Negative Urine Bilirubin Negative Urine Urobilinogen 4.0 H Ur Leukocyte Esterase Neg Urine RBC (Auto) 6 H Urine Microscopic WBC 4 Ur Squamous Epith Cells 2 Amorphous Sediment Few H Urine Bacteria Occ H Hyaline Casts 11-20 H Urine Opiates Screen Urine Methadone Screen Ur Barbiturates Screen Ur Phencyclidine Scrn Ur Amphetamines Screen U Benzodiazepines Scrn U Oth Cocaine Metabols U Cannabinoids Screen Alcohol, Quantitative 07/29/18 07/29/18 07/29/18 16:48 18:54 19:48 WBC RBC Hgb Hct MCV MCH MCHC RDW Plt Count MPV Neut % (Auto) Lymph % (Auto) [place] % (Auto) Eos % (Auto) Baso % (Auto) Neut # (Auto) Lymph # (Auto) [place] # (Auto) Eos # (Auto) Baso # (Auto) Neutrophils % (Manual) Lymphocytes % (Manual) Monocytes % (Manual) Eosinophils % (Manual) Platelet Estimate Large Platelets Hypochromasia (manual) Poikilocytosis (manual Anisocytosis (manual) Microcytosis (manual) Macrocytosis (manual) Target Cells Tear Drop Cells Ovalocytes [place] Cells PT INR APTT pCO2 pO2 31 HCO3 ABG pH ABG Total CO2 ABG O2 Saturation ABG O2 Content ABG Base Excess ABG Hemoglobin ABG Carboxyhemoglobin POC ABG HHb (Measured) ABG Methemoglobin ABG O2 Capacity [place] Test ABG Potassium VBG pH 7.15 L* VBG pCO2 60 VBG HCO3 16.6 VBG Total CO2 22.7 VBG O2 Sat (Calc) 54.4 VBG Base Excess -8.7 L VBG Potassium 4.2 A-a O2 Difference Hgb O2 Saturation Sodium 138.0 Chloride 105.0 Glucose 105 Lactate 7.8 H* FiO2 21.0 Blood Gas Comments Crit Value Called To Tejinder walter md Crit Value Called By Ann hirsch Crit Value Read Back Y Blood Gas Notified Time 1655 Potassium Carbon Dioxide Anion Gap BUN Creatinine Est GFR ( Amer) Est GFR (Non-Af Amer) POC Glucose (mg/dL) 70 Random Glucose Lactic Acid Calcium Phosphorus Magnesium Total Bilirubin AST ALT Alkaline Phosphatase Ammonia Total Creatine Kinase Troponin I 1.7800 H* NT-Pro-B Natriuret Pep Total Protein Albumin Globulin Albumin/Globulin Ratio Arterial Blood Potassium Venous Blood Potassium 4.2 Urine Color Urine Clarity Urine pH Ur Specific [place] Urine Protein Urine Glucose (UA) Urine Ketones Urine Blood Urine Nitrate Urine Bilirubin Urine Urobilinogen Ur Leukocyte Esterase Urine RBC (Auto) Urine Microscopic WBC Ur Squamous Epith Cells Amorphous Sediment Urine Bacteria Hyaline Casts Urine Opiates Screen Urine Methadone Screen Ur Barbiturates Screen Ur Phencyclidine Scrn Ur Amphetamines Screen U Benzodiazepines Scrn U Oth Cocaine Metabols U Cannabinoids Screen Alcohol, Quantitative 07/29/18 07/29/18 07/29/18 19:48 20:18 21:00 WBC RBC Hgb Hct MCV MCH MCHC RDW Plt Count MPV Neut % (Auto) Lymph % (Auto) [place] % (Auto) Eos % (Auto) Baso % (Auto) Neut # (Auto) Lymph # (Auto) [place] # (Auto) Eos # (Auto) Baso # (Auto) Neutrophils % (Manual) Lymphocytes % (Manual) Monocytes % (Manual) Eosinophils % (Manual) Platelet Estimate Large Platelets Hypochromasia (manual) Poikilocytosis (manual Anisocytosis (manual) Microcytosis (manual) Macrocytosis (manual) Target Cells Tear Drop Cells Ovalocytes Jeannette Cells PT INR APTT pCO2 pO2 HCO3 ABG pH ABG Total CO2 ABG O2 Saturation ABG O2 Content ABG Base Excess ABG Hemoglobin ABG Carboxyhemoglobin POC ABG HHb (Measured) ABG Methemoglobin ABG O2 Capacity [place] Test ABG Potassium VBG pH VBG pCO2 VBG HCO3 VBG Total CO2 VBG O2 Sat (Calc) VBG Base Excess VBG Potassium A-a O2 Difference Hgb O2 Saturation Sodium Chloride Glucose Lactate FiO2 Blood Gas Comments Crit Value Called To Crit Value Called By Crit Value Read Back Blood Gas Notified Time Potassium Carbon Dioxide Anion Gap BUN Creatinine Est GFR ( Amer) Est GFR (Non-Af Amer) POC Glucose (mg/dL) 147 H Random Glucose Lactic Acid 6.0 H* Calcium Phosphorus Magnesium Total Bilirubin AST ALT Alkaline Phosphatase Ammonia 36 Total Creatine Kinase Troponin I NT-Pro-B Natriuret Pep Total Protein Albumin Globulin Albumin/Globulin Ratio Arterial Blood Potassium Venous Blood Potassium Urine Color Urine Clarity Urine pH Ur Specific [place] Urine Protein Urine Glucose (UA) Urine Ketones Urine Blood Urine Nitrate Urine Bilirubin Urine Urobilinogen Ur Leukocyte Esterase Urine RBC (Auto) Urine Microscopic WBC Ur Squamous Epith Cells Amorphous Sediment Urine Bacteria Hyaline Casts Urine Opiates Screen Urine Methadone Screen Ur Barbiturates Screen Ur Phencyclidine Scrn Ur Amphetamines Screen U Benzodiazepines Scrn U Oth Cocaine Metabols U Cannabinoids Screen Alcohol, Quantitative 07/29/18 07/29/18 07/30/18 21:58 23:08 00:19 WBC RBC Hgb Hct MCV MCH MCHC RDW Plt Count MPV Neut % (Auto) Lymph % (Auto) [place] % (Auto) Eos % (Auto) Baso % (Auto) Neut # (Auto) Lymph # (Auto) [place] # (Auto) Eos # (Auto) Baso # (Auto) Neutrophils % (Manual) Lymphocytes % (Manual) Monocytes % (Manual) Eosinophils % (Manual) Platelet Estimate Large Platelets Hypochromasia (manual) Poikilocytosis (manual Anisocytosis (manual) Microcytosis (manual) Macrocytosis (manual) Target Cells Tear Drop Cells Ovalocytes [place] Cells PT INR APTT pCO2 48 H pO2 154 H HCO3 16.9 L ABG pH 7.18 L* ABG Total CO2 19.4 L ABG O2 Saturation 100.2 H ABG O2 Content 16.3 ABG Base Excess -10.3 L ABG Hemoglobin 11.8 ABG Carboxyhemoglobin 1.9 H POC ABG HHb (Measured) -0.2 L ABG Methemoglobin 1.9 ABG O2 Capacity 16.3 [place] Test Yes ABG Potassium VBG pH VBG pCO2 VBG HCO3 VBG Total CO2 VBG O2 Sat (Calc) VBG Base Excess VBG Potassium A-a O2 Difference -14.0 Hgb O2 Saturation 96.4 Sodium Chloride Glucose Lactate FiO2 28.0 Blood Gas Comments Crit Value Called To Prieto maryellen rn Crit Value Called By 333 Crit Value Read Back Y Blood Gas Notified Time 2320 Potassium Carbon Dioxide Anion Gap BUN Creatinine Est GFR ( Amer) Est GFR (Non-Af Amer) POC Glucose (mg/dL) 132 H 151 H Random Glucose Lactic Acid Calcium Phosphorus Magnesium Total Bilirubin AST ALT Alkaline Phosphatase Ammonia Total Creatine Kinase Troponin I NT-Pro-B Natriuret Pep Total Protein Albumin Globulin Albumin/Globulin Ratio Arterial Blood Potassium Venous Blood Potassium Urine Color Urine Clarity Urine pH Ur Specific [place] Urine Protein Urine Glucose (UA) Urine Ketones Urine Blood Urine Nitrate Urine Bilirubin Urine Urobilinogen Ur Leukocyte Esterase Urine RBC (Auto) Urine Microscopic WBC Ur Squamous Epith Cells Amorphous Sediment Urine Bacteria Hyaline Casts Urine Opiates Screen Urine Methadone Screen Ur Barbiturates Screen Ur Phencyclidine Scrn Ur Amphetamines Screen U Benzodiazepines Scrn U Oth Cocaine Metabols U Cannabinoids Screen Alcohol, Quantitative 07/30/18 07/30/18 07/30/18 02:11 04:10 04:50 WBC RBC Hgb Hct MCV MCH MCHC RDW Plt Count MPV Neut % (Auto) Lymph % (Auto) [place] % (Auto) Eos % (Auto) Baso % (Auto) Neut # (Auto) Lymph # (Auto) [place] # (Auto) Eos # (Auto) Baso # (Auto) Neutrophils % (Manual) Lymphocytes % (Manual) Monocytes % (Manual) Eosinophils % (Manual) Platelet Estimate Large Platelets Hypochromasia (manual) Poikilocytosis (manual Anisocytosis (manual) Microcytosis (manual) Macrocytosis (manual) Target Cells Tear Drop Cells Ovalocytes [place] Cells PT INR APTT pCO2 pO2 HCO3 ABG pH ABG Total CO2 ABG O2 Saturation ABG O2 Content ABG Base Excess ABG Hemoglobin ABG Carboxyhemoglobin POC ABG HHb (Measured) ABG Methemoglobin ABG O2 Capacity [place] Test ABG Potassium VBG pH VBG pCO2 VBG HCO3 VBG Total CO2 VBG O2 Sat (Calc) VBG Base Excess VBG Potassium A-a O2 Difference Hgb O2 Saturation Sodium Chloride Glucose Lactate FiO2 Blood Gas Comments Crit Value Called To Crit Value Called By Crit Value Read Back Blood Gas Notified Time Potassium Carbon Dioxide Anion Gap BUN Creatinine Est GFR ( Amer) Est GFR (Non-Af Amer) POC Glucose (mg/dL) 188 H 148 H Random Glucose Lactic Acid 3.9 H Calcium Phosphorus Magnesium Total Bilirubin AST ALT Alkaline Phosphatase Ammonia Total Creatine Kinase Troponin I NT-Pro-B Natriuret Pep Total Protein Albumin Globulin Albumin/Globulin Ratio Arterial Blood Potassium Venous Blood Potassium Urine Color Urine Clarity Urine pH Ur Specific [place] Urine Protein Urine Glucose (UA) Urine Ketones Urine Blood Urine Nitrate Urine Bilirubin Urine Urobilinogen Ur Leukocyte Esterase Urine RBC (Auto) Urine Microscopic WBC Ur Squamous Epith Cells Amorphous Sediment Urine Bacteria Hyaline Casts Urine Opiates Screen Urine Methadone Screen Ur Barbiturates Screen Ur Phencyclidine Scrn Ur Amphetamines Screen U Benzodiazepines Scrn U Oth Cocaine Metabols U Cannabinoids Screen Alcohol, Quantitative 07/30/18 07/30/18 07/30/18 04:50 04:50 05:12 WBC 31.5 H RBC 4.31 Hgb 10.4 L Hct 34.0 MCV 78.8 L MCH 24.1 L MCHC 30.6 L RDW 19.8 H Plt Count 138 MPV 9.2 Neut % (Auto) 91.4 H Lymph % (Auto) 3.4 L [place] % (Auto) 5.0 Eos % (Auto) 0.0 Baso % (Auto) 0.2 Neut # (Auto) 28.8 H Lymph # (Auto) 1.1 [place] # (Auto) 1.6 H Eos # (Auto) 0.0 Baso # (Auto) 0.1 Neutrophils % (Manual) 92 H Lymphocytes % (Manual) 4 L Monocytes % (Manual) 2 Eosinophils % (Manual) 2 Platelet Estimate Normal Large Platelets Hypochromasia (manual) Slight Poikilocytosis (manual Anisocytosis (manual) Slight Microcytosis (manual) Slight Macrocytosis (manual) Target Cells Slight Tear Drop Cells Ovalocytes [place] Cells Slight PT INR APTT pCO2 48 H pO2 105 H HCO3 19.7 L ABG pH 7.24 L ABG Total CO2 22.1 ABG O2 Saturation 99.8 H ABG O2 Content 15.0 ABG Base Excess -6.7 L ABG Hemoglobin 11.0 L ABG Carboxyhemoglobin 2.1 H POC ABG HHb (Measured) 0.2 ABG Methemoglobin 1.7 ABG O2 Capacity 15.0 L [place] Test Yes ABG Potassium VBG pH VBG pCO2 VBG HCO3 VBG Total CO2 VBG O2 Sat (Calc) VBG Base Excess VBG Potassium A-a O2 Difference 35.0 Hgb O2 Saturation 96.0 Sodium 138 Chloride 101 Glucose Lactate FiO2 28.0 Blood Gas Comments Crit Value Called To Crit Value Called By Crit Value Read Back Blood Gas Notified Time Potassium 4.8 Carbon Dioxide 21 L Anion Gap 21 H BUN 31 H Creatinine 2.6 H Est GFR ( Amer) 23 Est GFR (Non-Af Amer) 19 POC Glucose (mg/dL) Random Glucose 231 H Lactic Acid Calcium 7.3 L Phosphorus Magnesium Total Bilirubin 2.3 H AST 6852 H ALT 3395 H Alkaline Phosphatase 124 Ammonia Total Creatine Kinase Troponin I 3.6000 H* NT-Pro-B Natriuret Pep Total Protein 6.4 Albumin 2.7 L D Globulin 3.6 Albumin/Globulin Ratio 0.7 L Arterial Blood Potassium Venous Blood Potassium Urine Color Urine Clarity Urine pH Ur Specific [place] Urine Protein Urine Glucose (UA) Urine Ketones Urine Blood Urine Nitrate Urine Bilirubin Urine Urobilinogen Ur Leukocyte Esterase Urine RBC (Auto) Urine Microscopic WBC Ur Squamous Epith Cells Amorphous Sediment Urine Bacteria Hyaline Casts Urine Opiates Screen Urine Methadone Screen Ur Barbiturates Screen Ur Phencyclidine Scrn Ur Amphetamines Screen U Benzodiazepines Scrn U Oth Cocaine Metabols U Cannabinoids Screen Alcohol, Quantitative 07/30/18 07/30/18 07/30/18 05:46 07:53 07:54 WBC RBC Hgb Hct MCV MCH MCHC RDW Plt Count MPV Neut % (Auto) Lymph % (Auto) [place] % (Auto) Eos % (Auto) Baso % (Auto) Neut # (Auto) Lymph # (Auto) [place] # (Auto) Eos # (Auto) Baso # (Auto) Neutrophils % (Manual) Lymphocytes % (Manual) Monocytes % (Manual) Eosinophils % (Manual) Platelet Estimate Large Platelets Hypochromasia (manual) Poikilocytosis (manual Anisocytosis (manual) Microcytosis (manual) Macrocytosis (manual) Target Cells Tear Drop Cells Ovalocytes [place] Cells PT INR APTT pCO2 pO2 HCO3 ABG pH ABG Total CO2 ABG O2 Saturation ABG O2 Content ABG Base Excess ABG Hemoglobin ABG Carboxyhemoglobin POC ABG HHb (Measured) ABG Methemoglobin ABG O2 Capacity [place] Test ABG Potassium VBG pH VBG pCO2 VBG HCO3 VBG Total CO2 VBG O2 Sat (Calc) VBG Base Excess VBG Potassium A-a O2 Difference Hgb O2 Saturation Sodium Chloride Glucose Lactate FiO2 Blood Gas Comments Crit Value Called To Crit Value Called By Crit Value Read Back Blood Gas Notified Time Potassium Carbon Dioxide Anion Gap BUN Creatinine Est GFR ( Amer) Est GFR (Non-Af Amer) POC Glucose (mg/dL) 331 H 160 H Random Glucose Lactic Acid Calcium Phosphorus Magnesium Total Bilirubin AST ALT Alkaline Phosphatase Ammonia Total Creatine Kinase 1116 H Troponin I NT-Pro-B Natriuret Pep Total Protein Albumin Globulin Albumin/Globulin Ratio Arterial Blood Potassium Venous Blood Potassium Urine Color Urine Clarity Urine pH Ur Specific [place] Urine Protein Urine Glucose (UA) Urine Ketones Urine Blood Urine Nitrate Urine Bilirubin Urine Urobilinogen Ur Leukocyte Esterase Urine RBC (Auto) Urine Microscopic WBC Ur Squamous Epith Cells Amorphous Sediment Urine Bacteria Hyaline Casts Urine Opiates Screen Urine Methadone Screen Ur Barbiturates Screen Ur Phencyclidine Scrn Ur Amphetamines Screen U Benzodiazepines Scrn U Oth Cocaine Metabols U Cannabinoids Screen Alcohol, Quantitative Assessment & Plan (1) Sepsis Status: Acute (2) Change in mental state Status: Acute (3) History of CVA with residual deficit Status: Acute (4) History of CVA (cerebrovascular accident) Status: Chronic (5) Elevated troponin level Assessment and Plan: etiology undetermined as yet Status: Acute (6) Elevated liver enzymes Status: Acute (7) Leukocytosis Status: Acute (8) Creatinine elevation Status: Acute
[2018-07-30] MEDS: Dextrose 5%/0.45% NS 1,000 ML IV SCH (08:49)
[2018-07-30] MEDS: levETIRAcetam 500 MG in Sodium Chloride 0.9% 100 ML IVPB SCH ×2 (08:50→20:27)
[2018-07-30] MEDS: Enoxaparin 100 mg Syringe SC SCH (08:51)
--- NOTE | 2018-07-30 10:09 | CARD ---
APPROVED REPORT Date of service: 07/29/2018 EKG Measurement Heart [id number] <Conclusion> Atrial flutter with variable AV block with premature ventricular or aberrantly conducted complexes Rightward axis Nonspecific ST and T wave abnormality Abnormal ECG
--- NOTE | 2018-07-30 11:09 | RAD ---
Date of service: 07/30/2018 HISTORY: Audible crackles COMPARISON: 2018. FINDINGS: LUNGS: Resolution right lower lobe infiltrate. New left lower lobe infiltrate. PLEURA: No significant pleural effusion identified, no pneumothorax apparent. CARDIOVASCULAR: No atherosclerotic calcification present No radiographic findings to suggest acute or significant cardiovascular disease. Incidental Finding(s): Postoperative changes related to sternotomy. OSSEOUS STRUCTURES: No significant abnormalities. VISUALIZED UPPER ABDOMEN: Normal. OTHER FINDINGS: None. IMPRESSION: Resolution previously identified right lower lobe infiltrate. New perihilar primarily left lower lobe infiltrate.
--- NOTE | 2018-07-30 11:59 | CP.PCM.HP ---
History of Present Illness - History of Present Illness History of Present Illness: 58 year old female with a past medical history of HTN, stroke, CABG, IN, diabetes and anemia, who presented to the emergency department accompanied with EMS after patient was found unconscious at home. History limited due to patients obtunded status. Patient seen and examined at bedside. Spoke with brother. States patient was in normal health until episode of not waking up. Denies recent travel, illness, symptoms. meds: as per chart allergies: as per chart fam hx: noncontributory Present on Admission - Present on Admission Any Indicators Present on Admission: Yes Decubitus Ulcer Present: Yes Review of Systems - Review of Systems Systems not reviewed;Unavailable: Altered Mental Status Past Patient History - Past Medical History & Family History Past Medical History?: Yes - Past Social History Smoking Status: Former Smoker - CARDIAC Hx Cardiac Disorders: Yes Other/Comment: CABG - PULMONARY Hx Respiratory Disorders: Yes Hx Asthma: Yes Hx Bronchitis: Yes Hx Pneumonia: Yes - NEUROLOGICAL Hx Neurological Disorder: Yes HX Cerebrovascular Accident: Yes - HEENT Hx HEENT Problems: Yes Hx Cataracts: Yes - RENAL Hx Chronic Kidney Disease: No - ENDOCRINE/METABOLIC Hx Endocrine Disorders: No Hx Diabetes Mellitus Type 2: Yes - HEMATOLOGICAL/ONCOLOGICAL Hx Blood Disorders: Yes Hx Anemia: Yes - INTEGUMENTARY Hx Dermatological Problems: No - MUSCULOSKELETAL/RHEUMATOLOGICAL Hx Musculoskeletal Disorders: Yes Hx Arthritis: Yes Hx Falls: No - GASTROINTESTINAL Hx Gastrointestinal Disorders: Yes Hx Constipation: Yes - GENITOURINARY/GYNECOLOGICAL Hx Genitourinary Disorders: No - PSYCHIATRIC Hx Psychophysiologic Disorder: No Hx Substance Use: No - SURGICAL HISTORY Hx Surgeries: Yes Hx Cholecystectomy: Yes Hx Coronary Artery Bypass Graft: Yes Other/Comment: Brain hematoma surgery x4 - ANESTHESIA Hx Anesthesia: Yes Hx Anesthesia Reactions: No Meds Allergies/Adverse Reactions: Allergies Allergy/AdvReac Type Severity Reaction Status Date / Time Penicillins Allergy RASH Verified 07/12/18 13:53 latex AdvReac RASH Verified 07/12/18 13:53 Physical Exam - Constitutional Appears: Chronically Ill - Head Exam Head Exam: NORMAL INSPECTION - Eye Exam Eye Exam: Normal appearance - Respiratory Exam Respiratory Exam: Decreased Breath Sounds, Rales - Cardiovascular Exam Cardiovascular Exam: +S1, +S2, Systolic Murmur - GI/Abdominal Exam GI & Abdominal Exam: Soft - Extremities Exam Additional comments: edema note of right arm - Skin Skin Exam: Normal Color, Warm Results - Vital Signs Recent Vital Signs: Last Vital Signs Temp 98.5 F 07/30/18 11:58 Pulse 74 07/30/18 11:58 Resp 11 L 07/30/18 11:58 BP 112/60 07/30/18 11:58 Pulse Ox 100 07/30/18 11:58 - Labs Result Diagrams: 07/30/18 04:50 07/30/18 04:50 Labs: Laboratory Results - last 24 hr 07/29/18 07/29/18 07/29/18 10:00 13:32 13:36 WBC RBC Hgb Hct MCV MCH MCHC RDW Plt Count MPV Neut % (Auto) Lymph % (Auto) [place] % (Auto) Eos % (Auto) Baso % (Auto) Neut # (Auto) Lymph # (Auto) [place] # (Auto) Eos # (Auto) Baso # (Auto) Neutrophils % (Manual) Lymphocytes % (Manual) Monocytes % (Manual) Eosinophils % (Manual) Platelet Estimate Large Platelets Hypochromasia (manual) Poikilocytosis (manual Anisocytosis (manual) Microcytosis (manual) Macrocytosis (manual) Target Cells Tear Drop Cells Ovalocytes [place] Cells PT INR APTT pCO2 39 pO2 50 L HCO3 18.9 L ABG pH 7.29 L ABG Total CO2 20.0 L ABG O2 Saturation 88.8 L ABG O2 Content ABG Base Excess -7.3 L ABG Hemoglobin ABG Carboxyhemoglobin POC ABG HHb (Measured) ABG Methemoglobin ABG O2 Capacity [place] Test Yes ABG Potassium 4.1 VBG pH VBG pCO2 VBG HCO3 VBG Total CO2 VBG O2 Sat (Calc) VBG Base Excess VBG Potassium A-a O2 Difference 51.0 Hgb O2 Saturation Sodium 137.0 Chloride 105.0 Glucose 210 H Lactate 6.8 H* FiO2 21.0 Blood Gas Comments Ra 21 Crit Value Called To Dr myra lawson m.d. Crit Value Called By Dariana Crit Value Read Back Y Blood Gas Notified Time 1350 Potassium Carbon Dioxide Anion Gap BUN Creatinine Est GFR ( Amer) Est GFR (Non-Af Amer) POC Glucose (mg/dL) 138 H Random Glucose Lactic Acid Calcium Phosphorus Magnesium Total Bilirubin AST ALT Alkaline Phosphatase Ammonia Total Creatine Kinase Troponin I NT-Pro-B Natriuret Pep Total Protein Albumin Globulin Albumin/Globulin Ratio Arterial Blood Potassium 4.1 Venous Blood Potassium Urine Color Urine Clarity Urine pH Ur Specific [place] Urine Protein Urine Glucose (UA) Urine Ketones Urine Blood Urine Nitrate Urine Bilirubin Urine Urobilinogen Ur Leukocyte Esterase Urine RBC (Auto) Urine Microscopic WBC Ur Squamous Epith Cells Amorphous Sediment Urine Bacteria Hyaline Casts Urine Opiates Screen Urine Methadone Screen Ur Barbiturates Screen Ur Phencyclidine Scrn Ur Amphetamines Screen U Benzodiazepines Scrn U Oth Cocaine Metabols U Cannabinoids Screen Alcohol, Quantitative C. difficile Ag & Toxin Negative 07/29/18 07/29/18 07/29/18 13:48 13:48 14:29 WBC 24.8 H D RBC 4.31 Hgb 10.5 L Hct 34.7 MCV 80.4 L D MCH 24.2 L MCHC 30.1 L RDW 20.1 H Plt Count 140 MPV 8.2 Neut % (Auto) 88.0 H Lymph % (Auto) 4.4 L [place] % (Auto) 7.4 Eos % (Auto) 0.0 Baso % (Auto) 0.2 Neut # (Auto) 21.8 H Lymph # (Auto) 1.1 [place] # (Auto) 1.8 H Eos # (Auto) 0.0 Baso # (Auto) 0.1 Neutrophils % (Manual) 83 H Lymphocytes % (Manual) 10 L Monocytes % (Manual) 7 Eosinophils % (Manual) Platelet Estimate Slightly decreased L Large Platelets Present Hypochromasia (manual) Slight Poikilocytosis (manual Slight Anisocytosis (manual) Moderate Microcytosis (manual) Slight Macrocytosis (manual) Slight Target Cells Tear Drop Cells Slight Ovalocytes Moderate [place]ette Cells PT INR APTT pCO2 pO2 21 L HCO3 ABG pH ABG Total CO2 ABG O2 Saturation ABG O2 Content ABG Base Excess ABG Hemoglobin ABG Carboxyhemoglobin POC ABG HHb (Measured) ABG Methemoglobin ABG O2 Capacity [place] Test ABG Potassium VBG pH 7.10 L* VBG pCO2 80 H* VBG HCO3 18.6 VBG Total CO2 27.3 VBG O2 Sat (Calc) 26.8 L VBG Base Excess -6.0 L VBG Potassium 4.1 A-a O2 Difference Hgb O2 Saturation Sodium 143 142.0 Chloride 101 105.0 Glucose 141 H Lactate 8.5 H* FiO2 28.0 Blood Gas Comments Crit Value Called To Dr myra lawson m.d. Crit Value Called By Dariana Crit Value Read Back Y Blood Gas Notified Time 1452 Potassium 4.1 Carbon Dioxide 22 Anion Gap 24 H BUN 22 H Creatinine 2.2 H Est GFR ( Amer) 28 Est GFR (Non-Af Amer) 23 POC Glucose (mg/dL) Random Glucose 147 H Lactic Acid Calcium 8.7 Phosphorus Magnesium Total Bilirubin 2.5 H AST 1555 H ALT 1303 H Alkaline Phosphatase 127 H D Ammonia Total Creatine Kinase Troponin I 0.2710 H* NT-Pro-B Natriuret Pep 2820 H Total Protein 7.5 Albumin 3.8 Globulin 3.8 Albumin/Globulin Ratio 1.0 Arterial Blood Potassium Venous Blood Potassium 4.1 Urine Color Urine Clarity Urine pH Ur Specific [place] Urine Protein Urine Glucose (UA) Urine Ketones Urine Blood Urine Nitrate Urine Bilirubin Urine Urobilinogen Ur Leukocyte Esterase Urine RBC (Auto) Urine Microscopic WBC Ur Squamous Epith Cells Amorphous Sediment Urine Bacteria Hyaline Casts Urine Opiates Screen Urine Methadone Screen Ur Barbiturates Screen Ur Phencyclidine Scrn Ur Amphetamines Screen U Benzodiazepines Scrn U Oth Cocaine Metabols U Cannabinoids Screen Alcohol, Quantitative < 10 C. difficile Ag & Toxin 07/29/18 07/29/18 07/29/18 14:50 14:50 14:50 WBC RBC Hgb Hct MCV MCH MCHC RDW Plt Count MPV Neut % (Auto) Lymph % (Auto) [place] % (Auto) Eos % (Auto) Baso % (Auto) Neut # (Auto) Lymph # (Auto) [place] # (Auto) Eos # (Auto) Baso # (Auto) Neutrophils % (Manual) Lymphocytes % (Manual) Monocytes % (Manual) Eosinophils % (Manual) Platelet Estimate Large Platelets Hypochromasia (manual) Poikilocytosis (manual Anisocytosis (manual) Microcytosis (manual) Macrocytosis (manual) Target Cells Tear Drop Cells Ovalocytes [place]annette Cells PT INR APTT pCO2 pO2 HCO3 ABG pH ABG Total CO2 ABG O2 Saturation ABG O2 Content ABG Base Excess ABG Hemoglobin ABG Carboxyhemoglobin POC ABG HHb (Measured) ABG Methemoglobin ABG O2 Capacity [place] Test ABG Potassium VBG pH VBG pCO2 VBG HCO3 VBG Total CO2 VBG O2 Sat (Calc) VBG Base Excess VBG Potassium A-a O2 Difference Hgb O2 Saturation Sodium Chloride Glucose Lactate FiO2 Blood Gas Comments Crit Value Called To Crit Value Called By Crit Value Read Back Blood Gas Notified Time Potassium Carbon Dioxide Anion Gap BUN Creatinine Est GFR ( Amer) Est GFR (Non-Af Amer) POC Glucose (mg/dL) Random Glucose Lactic Acid Calcium Phosphorus 9.3 H Magnesium 2.0 Total Bilirubin AST ALT Alkaline Phosphatase Ammonia Total Creatine Kinase Troponin I NT-Pro-B Natriuret Pep Total Protein Albumin Globulin Albumin/Globulin Ratio Arterial Blood Potassium Venous Blood Potassium Urine Color [place] Urine Clarity Turbid Urine pH 6.0 Ur Specific [place] 1.013 Urine Protein 100 Urine Glucose (UA) Neg Urine Ketones Negative Urine Blood Moderate Urine Nitrate Negative Urine Bilirubin Negative Urine Urobilinogen 4.0 H Ur Leukocyte Esterase Neg Urine RBC (Auto) 6 H Urine Microscopic WBC 4 Ur Squamous Epith Cells 2 Amorphous Sediment Few H Urine Bacteria Occ H Hyaline Casts 11-20 H Urine Opiates Screen Negative Urine Methadone Screen Negative Ur Barbiturates Screen Negative Ur Phencyclidine Scrn Negative Ur Amphetamines Screen Negative U Benzodiazepines Scrn Negative U Oth Cocaine Metabols Negative U Cannabinoids Screen Negative Alcohol, Quantitative C. difficile Ag & Toxin 07/29/18 07/29/18 07/29/18 14:50 16:48 18:54 WBC RBC Hgb Hct MCV MCH MCHC RDW Plt Count MPV Neut % (Auto) Lymph % (Auto) [place] % (Auto) Eos % (Auto) Baso % (Auto) Neut # (Auto) Lymph # (Auto) [place] # (Auto) Eos # (Auto) Baso # (Auto) Neutrophils % (Manual) Lymphocytes % (Manual) Monocytes % (Manual) Eosinophils % (Manual) Platelet Estimate Large Platelets Hypochromasia (manual) Poikilocytosis (manual Anisocytosis (manual) Microcytosis (manual) Macrocytosis (manual) Target Cells Tear Drop Cells Ovalocytes [place]ette Cells PT 21.5 H INR 1.9 APTT 44.5 H pCO2 pO2 31 HCO3 ABG pH ABG Total CO2 ABG O2 Saturation ABG O2 Content ABG Base Excess ABG Hemoglobin ABG Carboxyhemoglobin POC ABG HHb (Measured) ABG Methemoglobin ABG O2 Capacity [place] Test ABG Potassium VBG pH 7.15 L* VBG pCO2 60 VBG HCO3 16.6 VBG Total CO2 22.7 VBG O2 Sat (Calc) 54.4 VBG Base Excess -8.7 L VBG Potassium 4.2 A-a O2 Difference Hgb O2 Saturation Sodium 138.0 Chloride 105.0 Glucose 105 Lactate 7.8 H* FiO2 21.0 Blood Gas Comments Crit Value Called To Tejinder walter md Crit Value Called By Ann hirsch Crit Value Read Back Y Blood Gas Notified Time 1655 Potassium Carbon Dioxide Anion Gap BUN Creatinine Est GFR ( Amer) Est GFR (Non-Af Amer) POC Glucose (mg/dL) 70 Random Glucose Lactic Acid Calcium Phosphorus Magnesium Total Bilirubin AST ALT Alkaline Phosphatase Ammonia Total Creatine Kinase Troponin I NT-Pro-B Natriuret Pep Total Protein Albumin Globulin Albumin/Globulin Ratio Arterial Blood Potassium Venous Blood Potassium 4.2 Urine Color Urine Clarity Urine pH Ur Specific [place] Urine Protein Urine Glucose (UA) Urine Ketones Urine Blood Urine Nitrate Urine Bilirubin Urine Urobilinogen Ur Leukocyte Esterase Urine RBC (Auto) Urine Microscopic WBC Ur Squamous Epith Cells Amorphous Sediment Urine Bacteria Hyaline Casts Urine Opiates Screen Urine Methadone Screen Ur Barbiturates Screen Ur Phencyclidine Scrn Ur Amphetamines Screen U Benzodiazepines Scrn U Oth Cocaine Metabols U Cannabinoids Screen Alcohol, Quantitative C. difficile Ag & Toxin 07/29/18 07/29/18 07/29/18 19:48 19:48 20:18 WBC RBC Hgb Hct MCV MCH MCHC RDW Plt Count MPV Neut % (Auto) Lymph % (Auto) [place] % (Auto) Eos % (Auto) Baso % (Auto) Neut # (Auto) Lymph # (Auto) [place] # (Auto) Eos # (Auto) Baso # (Auto) Neutrophils % (Manual) Lymphocytes % (Manual) Monocytes % (Manual) Eosinophils % (Manual) Platelet Estimate Large Platelets Hypochromasia (manual) Poikilocytosis (manual Anisocytosis (manual) Microcytosis (manual) Macrocytosis (manual) Target Cells Tear Drop Cells Ovalocytes [place] Cells PT INR APTT pCO2 pO2 HCO3 ABG pH ABG Total CO2 ABG O2 Saturation ABG O2 Content ABG Base Excess ABG Hemoglobin ABG Carboxyhemoglobin POC ABG HHb (Measured) ABG Methemoglobin ABG O2 Capacity [place] Test ABG Potassium VBG pH VBG pCO2 VBG HCO3 VBG Total CO2 VBG O2 Sat (Calc) VBG Base Excess VBG Potassium A-a O2 Difference Hgb O2 Saturation Sodium Chloride Glucose Lactate FiO2 Blood Gas Comments Crit Value Called To Crit Value Called By Crit Value Read Back Blood Gas Notified Time Potassium Carbon Dioxide Anion Gap BUN Creatinine Est GFR ( Amer) Est GFR (Non-Af Amer) POC Glucose (mg/dL) 147 H Random Glucose Lactic Acid Calcium Phosphorus Magnesium Total Bilirubin AST ALT Alkaline Phosphatase Ammonia 36 Total Creatine Kinase Troponin I 1.7800 H* NT-Pro-B Natriuret Pep Total Protein Albumin Globulin Albumin/Globulin Ratio Arterial Blood Potassium Venous Blood Potassium Urine Color Urine Clarity Urine pH Ur Specific [place] Urine Protein Urine Glucose (UA) Urine Ketones Urine Blood Urine Nitrate Urine Bilirubin Urine Urobilinogen Ur Leukocyte Esterase Urine RBC (Auto) Urine Microscopic WBC Ur Squamous Epith Cells Amorphous Sediment Urine Bacteria Hyaline Casts Urine Opiates Screen Urine Methadone Screen Ur Barbiturates Screen Ur Phencyclidine Scrn Ur Amphetamines Screen U Benzodiazepines Scrn U Oth Cocaine Metabols U Cannabinoids Screen Alcohol, Quantitative C. difficile Ag & Toxin 07/29/18 07/29/18 07/29/18 21:00 21:58 23:08 WBC RBC Hgb Hct MCV MCH MCHC RDW Plt Count MPV Neut % (Auto) Lymph % (Auto) [place] % (Auto) Eos % (Auto) Baso % (Auto) Neut # (Auto) Lymph # (Auto) [place] # (Auto) Eos # (Auto) Baso # (Auto) Neutrophils % (Manual) Lymphocytes % (Manual) Monocytes % (Manual) Eosinophils % (Manual) Platelet Estimate Large Platelets Hypochromasia (manual) Poikilocytosis (manual Anisocytosis (manual) Microcytosis (manual) Macrocytosis (manual) Target Cells Tear Drop Cells Ovalocytes Je[place]ette Cells PT INR APTT pCO2 48 H pO2 154 H HCO3 16.9 L ABG pH 7.18 L* ABG Total CO2 19.4 L ABG O2 Saturation 100.2 H ABG O2 Content 16.3 ABG Base Excess -10.3 L ABG Hemoglobin 11.8 ABG Carboxyhemoglobin 1.9 H POC ABG HHb (Measured) -0.2 L ABG Methemoglobin 1.9 ABG O2 Capacity 16.3 [place] Test Yes ABG Potassium VBG pH VBG pCO2 VBG HCO3 VBG Total CO2 VBG O2 Sat (Calc) VBG Base Excess VBG Potassium A-a O2 Difference -14.0 Hgb O2 Saturation 96.4 Sodium Chloride Glucose Lactate FiO2 28.0 Blood Gas Comments Crit Value Called To Prieto maryellen guillaume Crit Value Called By 333 Crit Value Read Back Y Blood Gas Notified Time 2320 Potassium Carbon Dioxide Anion Gap BUN Creatinine Est GFR ( Amer) Est GFR (Non-Af Amer) POC Glucose (mg/dL) 132 H Random Glucose Lactic Acid 6.0 H* Calcium Phosphorus Magnesium Total Bilirubin AST ALT Alkaline Phosphatase Ammonia Total Creatine Kinase Troponin I NT-Pro-B Natriuret Pep Total Protein Albumin Globulin Albumin/Globulin Ratio Arterial Blood Potassium Venous Blood Potassium Urine Color Urine Clarity Urine pH Ur Specific [place] Urine Protein Urine Glucose (UA) Urine Ketones Urine Blood Urine Nitrate Urine Bilirubin Urine Urobilinogen Ur Leukocyte Esterase Urine RBC (Auto) Urine Microscopic WBC Ur Squamous Epith Cells Amorphous Sediment Urine Bacteria Hyaline Casts Urine Opiates Screen Urine Methadone Screen Ur Barbiturates Screen Ur Phencyclidine Scrn Ur Amphetamines Screen U Benzodiazepines Scrn U Oth Cocaine Metabols U Cannabinoids Screen Alcohol, Quantitative C. difficile Ag & Toxin 07/30/18 07/30/18 07/30/18 00:19 02:11 04:10 WBC RBC Hgb Hct MCV MCH MCHC RDW Plt Count MPV Neut % (Auto) Lymph % (Auto) [place] % (Auto) Eos % (Auto) Baso % (Auto) Neut # (Auto) Lymph # (Auto) [place] # (Auto) Eos # (Auto) Baso # (Auto) Neutrophils % (Manual) Lymphocytes % (Manual) Monocytes % (Manual) Eosinophils % (Manual) Platelet Estimate Large Platelets Hypochromasia (manual) Poikilocytosis (manual Anisocytosis (manual) Microcytosis (manual) Macrocytosis (manual) Target Cells Tear Drop Cells Ovalocytes [place] Cells PT INR APTT pCO2 pO2 HCO3 ABG pH ABG Total CO2 ABG O2 Saturation ABG O2 Content ABG Base Excess ABG Hemoglobin ABG Carboxyhemoglobin POC ABG HHb (Measured) ABG Methemoglobin ABG O2 Capacity [place] Test ABG Potassium VBG pH VBG pCO2 VBG HCO3 VBG Total CO2 VBG O2 Sat (Calc) VBG Base Excess VBG Potassium A-a O2 Difference Hgb O2 Saturation Sodium Chloride Glucose Lactate FiO2 Blood Gas Comments Crit Value Called To Crit Value Called By Crit Value Read Back Blood Gas Notified Time Potassium Carbon Dioxide Anion Gap BUN Creatinine Est GFR ( Amer) Est GFR (Non-Af Amer) POC Glucose (mg/dL) 151 H 188 H 148 H Random Glucose Lactic Acid Calcium Phosphorus Magnesium Total Bilirubin AST ALT Alkaline Phosphatase Ammonia Total Creatine Kinase Troponin I NT-Pro-B Natriuret Pep Total Protein Albumin Globulin Albumin/Globulin Ratio Arterial Blood Potassium Venous Blood Potassium Urine Color Urine Clarity Urine pH Ur Specific [place] Urine Protein Urine Glucose (UA) Urine Ketones Urine Blood Urine Nitrate Urine Bilirubin Urine Urobilinogen Ur Leukocyte Esterase Urine RBC (Auto) Urine Microscopic WBC Ur Squamous Epith Cells Amorphous Sediment Urine Bacteria Hyaline Casts Urine Opiates Screen Urine Methadone Screen Ur Barbiturates Screen Ur Phencyclidine Scrn Ur Amphetamines Screen U Benzodiazepines Scrn U Oth Cocaine Metabols U Cannabinoids Screen Alcohol, Quantitative C. difficile Ag & Toxin 07/30/18 07/30/18 07/30/18 04:50 04:50 04:50 WBC 31.5 H RBC 4.31 Hgb 10.4 L Hct 34.0 MCV 78.8 L MCH 24.1 L MCHC 30.6 L RDW 19.8 H Plt Count 138 MPV 9.2 Neut % (Auto) 91.4 H Lymph % (Auto) 3.4 L [place] % (Auto) 5.0 Eos % (Auto) 0.0 Baso % (Auto) 0.2 Neut # (Auto) 28.8 H Lymph # (Auto) 1.1 [place] # (Auto) 1.6 H Eos # (Auto) 0.0 Baso # (Auto) 0.1 Neutrophils % (Manual) 92 H Lymphocytes % (Manual) 4 L Monocytes % (Manual) 2 Eosinophils % (Manual) 2 Platelet Estimate Normal Large Platelets Hypochromasia (manual) Slight Poikilocytosis (manual Anisocytosis (manual) Slight Microcytosis (manual) Slight Macrocytosis (manual) Target Cells Slight Tear Drop Cells Ovalocytes [place] Cells Slight PT INR APTT pCO2 pO2 HCO3 ABG pH ABG Total CO2 ABG O2 Saturation ABG O2 Content ABG Base Excess ABG Hemoglobin ABG Carboxyhemoglobin POC ABG HHb (Measured) ABG Methemoglobin ABG O2 Capacity [place] Test ABG Potassium VBG pH VBG pCO2 VBG HCO3 VBG Total CO2 VBG O2 Sat (Calc) VBG Base Excess VBG Potassium A-a O2 Difference Hgb O2 Saturation Sodium 138 Chloride 101 Glucose Lactate FiO2 Blood Gas Comments Crit Value Called To Crit Value Called By Crit Value Read Back Blood Gas Notified Time Potassium 4.8 Carbon Dioxide 21 L Anion Gap 21 H BUN 31 H Creatinine 2.6 H Est GFR ( Amer) 23 Est GFR (Non-Af Amer) 19 POC Glucose (mg/dL) Random Glucose 231 H Lactic Acid 3.9 H Calcium 7.3 L Phosphorus Magnesium Total Bilirubin 2.3 H AST 6852 H ALT 3395 H Alkaline Phosphatase 124 Ammonia Total Creatine Kinase Troponin I 3.6000 H* NT-Pro-B Natriuret Pep Total Protein 6.4 Albumin 2.7 L D Globulin 3.6 Albumin/Globulin Ratio 0.7 L Arterial Blood Potassium Venous Blood Potassium Urine Color Urine Clarity Urine pH Ur Specific [place] Urine Protein Urine Glucose (UA) Urine Ketones Urine Blood Urine Nitrate Urine Bilirubin Urine Urobilinogen Ur Leukocyte Esterase Urine RBC (Auto) Urine Microscopic WBC Ur Squamous Epith Cells Amorphous Sediment Urine Bacteria Hyaline Casts Urine Opiates Screen Urine Methadone Screen Ur Barbiturates Screen Ur Phencyclidine Scrn Ur Amphetamines Screen U Benzodiazepines Scrn U Oth Cocaine Metabols U Cannabinoids Screen Alcohol, Quantitative C. difficile Ag & Toxin 07/30/18 07/30/18 07/30/18 05:12 05:46 07:53 WBC RBC Hgb Hct MCV MCH MCHC RDW Plt Count MPV Neut % (Auto) Lymph % (Auto) [place] % (Auto) Eos % (Auto) Baso % (Auto) Neut # (Auto) Lymph # (Auto) [place] # (Auto) Eos # (Auto) Baso # (Auto) Neutrophils % (Manual) Lymphocytes % (Manual) Monocytes % (Manual) Eosinophils % (Manual) Platelet Estimate Large Platelets Hypochromasia (manual) Poikilocytosis (manual Anisocytosis (manual) Microcytosis (manual) Macrocytosis (manual) Target Cells Tear Drop Cells Ovalocytes [place] Cells PT INR APTT pCO2 48 H pO2 105 H HCO3 19.7 L ABG pH 7.24 L ABG Total CO2 22.1 ABG O2 Saturation 99.8 H ABG O2 Content 15.0 ABG Base Excess -6.7 L ABG Hemoglobin 11.0 L ABG Carboxyhemoglobin 2.1 H POC ABG HHb (Measured) 0.2 ABG Methemoglobin 1.7 ABG O2 Capacity 15.0 L [place] Test Yes ABG Potassium VBG pH VBG pCO2 VBG HCO3 VBG Total CO2 VBG O2 Sat (Calc) VBG Base Excess VBG Potassium A-a O2 Difference 35.0 Hgb O2 Saturation 96.0 Sodium Chloride Glucose Lactate FiO2 28.0 Blood Gas Comments Crit Value Called To Crit Value Called By Crit Value Read Back Blood Gas Notified Time Potassium Carbon Dioxide Anion Gap BUN Creatinine Est GFR ( Amer) Est GFR (Non-Af Amer) POC Glucose (mg/dL) 331 H Random Glucose Lactic Acid Calcium Phosphorus Magnesium Total Bilirubin AST ALT Alkaline Phosphatase Ammonia Total Creatine Kinase 1116 H Troponin I NT-Pro-B Natriuret Pep Total Protein Albumin Globulin Albumin/Globulin Ratio Arterial Blood Potassium Venous Blood Potassium Urine Color Urine Clarity Urine pH Ur Specific [place] Urine Protein Urine Glucose (UA) Urine Ketones Urine Blood Urine Nitrate Urine Bilirubin Urine Urobilinogen Ur Leukocyte Esterase Urine RBC (Auto) Urine Microscopic WBC Ur Squamous Epith Cells Amorphous Sediment Urine Bacteria Hyaline Casts Urine Opiates Screen Urine Methadone Screen Ur Barbiturates Screen Ur Phencyclidine Scrn Ur Amphetamines Screen U Benzodiazepines Scrn U Oth Cocaine Metabols U Cannabinoids Screen Alcohol, Quantitative C. difficile Ag & Toxin 07/30/18 07/30/18 07/30/18 07:54 09:54 11:11 WBC RBC Hgb Hct MCV MCH MCHC RDW Plt Count MPV Neut % (Auto) Lymph % (Auto) [place] % (Auto) Eos % (Auto) Baso % (Auto) Neut # (Auto) Lymph # (Auto) [place] # (Auto) Eos # (Auto) Baso # (Auto) Neutrophils % (Manual) Lymphocytes % (Manual) Monocytes % (Manual) Eosinophils % (Manual) Platelet Estimate Large Platelets Hypochromasia (manual) Poikilocytosis (manual Anisocytosis (manual) Microcytosis (manual) Macrocytosis (manual) Target Cells Tear Drop Cells Ovalocytes Jeannette Cells PT INR APTT pCO2 pO2 HCO3 ABG pH ABG Total CO2 ABG O2 Saturation ABG O2 Content ABG Base Excess ABG Hemoglobin ABG Carboxyhemoglobin POC ABG HHb (Measured) ABG Methemoglobin ABG O2 Capacity [place] Test ABG Potassium VBG pH VBG pCO2 VBG HCO3 VBG Total CO2 VBG O2 Sat (Calc) VBG Base Excess VBG Potassium A-a O2 Difference Hgb O2 Saturation Sodium Chloride Glucose Lactate FiO2 Blood Gas Comments Crit Value Called To Crit Value Called By Crit Value Read Back Blood Gas Notified Time Potassium Carbon Dioxide Anion Gap BUN Creatinine Est GFR ( Amer) Est GFR (Non-Af Amer) POC Glucose (mg/dL) 160 H 134 H 137 H Random Glucose Lactic Acid Calcium Phosphorus Magnesium Total Bilirubin AST ALT Alkaline Phosphatase Ammonia Total Creatine Kinase Troponin I NT-Pro-B Natriuret Pep Total Protein Albumin Globulin Albumin/Globulin Ratio Arterial Blood Potassium Venous Blood Potassium Urine Color Urine Clarity Urine pH Ur Specific [place] Urine Protein Urine Glucose (UA) Urine Ketones Urine Blood Urine Nitrate Urine Bilirubin Urine Urobilinogen Ur Leukocyte Esterase Urine RBC (Auto) Urine Microscopic WBC Ur Squamous Epith Cells Amorphous Sediment Urine Bacteria Hyaline Casts Urine Opiates Screen Urine Methadone Screen Ur Barbiturates Screen Ur Phencyclidine Scrn Ur Amphetamines Screen U Benzodiazepines Scrn U Oth Cocaine Metabols U Cannabinoids Screen Alcohol, Quantitative C. difficile Ag & Toxin Assessment & Plan (1) Sepsis Status: Acute (2) Creatinine elevation Status: Acute (3) Elevated liver enzymes Status: Acute (4) Elevated troponin level Status: Acute - Assessment and Plan (Free Text) Plan: monitor labs monitor vitals f/u cultures consultants input appreciated ICU care follow up imaging/EEG cont IV abx rest of plan as ordered
--- NOTE | 2018-07-30 12:06 | PCM.PROC ---
Procedures Attestation:: I certify that I have explained the specified Operation(s) or Procedure(s), risks, benefits and reasonable alternatives to the Patient and/or other person responsible. The opportunity was given to ask questions and all questions answered - Central Line Placement Right Internal Jugular Triple Lumen Catheter Aseptic technique was employed throughout the procedure: Full sterile barriers (mask, hair cover, sterile gown, sterile gloves), Chloraprep Antiseptic: 30 sec ond prep for IJ or SC sites CVP Time Out Performed: Yes Pt. Placed on Pulse Ox Monitor: Yes Central Line Prep: Chlorhexidine-Alcohol Combination Local Anesthesia Used: Lidocaine 2% Amount of Anesthesia Used (mls): 1 Ultrasound Used for Placement: Yes Central Line Lumen Inserted: triple Central Line Length: 16 cm Post Procedure: Sutured in Place, Good Blood Return, All Ports Aspirated, Flushed, Capped, Sterile Dressing Applied Secured by: Suture Post procedure dressing: Chlorhexidine disc (Biopatch) Post Procedure X-Ray: Yes Patient Tolerated Procedure: Well Immediate Complications: None
--- NOTE | 2018-07-30 14:13 | CT ---
Date of service: 07/30/2018 PROCEDURE: CT Abdomen and Pelvis without intravenous contrast HISTORY: Sepsis. R/o gallstone, hydronephrosis COMPARISON: None. TECHNIQUE: Unenhanced. Neither IV nor oral contrast administered Radiation dose: Total exam DLP = 1004.09 mGy-cm. This CT exam was performed using one or more of the following dose reduction techniques: Automated exposure control, adjustment of the mA and/or kV according to patient size, and/or use of iterative reconstruction technique. FINDINGS: LOWER THORAX: Trace pleural effusions. Incompletely visualize cardiomegaly. Post sternotomy findings are also incompletely visualized. LIVER: Unremarkable. No gross lesion or ductal dilatation. GALLBLADDER AND BILE DUCTS: Status post cholecystectomy. No abnormality is seen in the gallbladder fossa. PANCREAS: Unremarkable. No gross lesion or ductal dilatation. SPLEEN: Unremarkable. ADRENALS: Unremarkable. No mass. KIDNEYS AND URETERS: Unremarkable. No hydronephrosis. No solid mass. VASCULATURE: Unremarkable. No aortic aneurysm. Atherosclerotic calcification and mural plaque present. Findings are seen throughout the aorta extending into common iliac arteries. BOWEL: Low left rectus diastasis/postoperative changes containing an isolated loop small bowel. The opening in the anterolateral abdominal wall on the left is 2.6 cm. There is no evidence of incarceration. There is disproportionate dilatation of proximal small bowel. Incidental finding in the ascending colon fatty deposits likely lipoma based on Hounsfield units. The area of interest measures 1.7 x 2.4 cm. This is not associated with the ileocecal valve. APPENDIX: No abnormalities to suggest acute appendicitis. No right lower quadrant inflammatory processes identified. PERITONEUM: Low volume pelvic ascites. This is primarily anterior and superior to the bladder. No free air. LYMPH NODES: Unremarkable. No enlarged lymph nodes. BLADDER: Amaro catheter satisfactorily positioned within a decompressed urinary bladder. REPRODUCTIVE: Unremarkable. BONES: No acute fracture. OTHER FINDINGS: Mild, symmetrical anasarca. IMPRESSION: Proximal small bowel dilatation likely related to lower abdominal wall hernia/rectus disruption on the left. No evidence of incarceration or strangulation. Normal luminal caliber beyond this finding.. Additional benign and/or incidental findings described above.
--- NOTE | 2018-07-30 14:30 | RAD ---
Date of service: 07/30/2018 PROCEDURE: CHEST RADIOGRAPH, 1 VIEW HISTORY: TLC position, r/o pneumothorax COMPARISON: July 30, 2018 Time of the most recent examination: 06:43. FINDINGS: LUNGS: Stable infiltrates. PLEURA: No pneumothorax or pleural fluid seen. CARDIOVASCULAR: No aortic atherosclerotic calcification present. Venous access catheter in satisfactory position. OSSEOUS STRUCTURES: No significant abnormalities. VISUALIZED UPPER ABDOMEN: Normal. OTHER FINDINGS: None. IMPRESSION: Satisfactory position of recently placed triple-lumen catheter. Right internal jugular approach. Catheter tip in the SVC. No pneumothorax.
--- NOTE | 2018-07-30 14:31 | CT ---
Date of service: 07/30/2018 PROCEDURE: CT HEAD WITHOUT CONTRAST. HISTORY: Altered mental status. COMPARISON: 07/29/2018 TECHNIQUE: Axial computed tomography images were obtained through the head/brain without intravenous contrast. Supplemental Coronal and Sagittal projections created and reviewed. Radiation dose: Total exam DLP = <inf_radiation_dlp> mGy-cm. This CT exam was performed using one or more of the following dose reduction techniques: Automated exposure control, adjustment of the mA and/or kV according to patient size, and/or use of iterative reconstruction technique. FINDINGS: HEMORRHAGE: No intracranial hemorrhage. BRAIN: No mass effect or edema. Stable postoperative/encephalomalacia change particularly left hemispheric at with ipsilateral dilatation of the left lateral ventricle. VENTRICLES: Unremarkable. No hydrocephalus. CALVARIUM: Stable post craniotomy findings. PARANASAL SINUSES: Unremarkable as visualized. No significant inflammatory changes. MASTOID AIR CELLS: Unremarkable as visualized. No inflammatory changes. OTHER FINDINGS: None. IMPRESSION: No acute intracranial abnormalities. No significant findings to account for the clinical presentation. No significant interval change compared to the prior examination(s).
[2018-07-30 15:04] LABS: INR 2.6; PROTHROMBIN TIME 29.3 Seconds (9.8-13.1)
--- NOTE | 2018-07-30 15:12 | CP.PCM.CON ---
History of Present Illness - History of Present Illness History of Present Illness: 58 yo female with Hx of HTN Obesity CVA with right weakness, CAD s/p CABG Asthma wass admitted via ER with altered mantal status which did not respond to Narcan and Glucose infusion by EMS Referred for ID eval because of possible sepsis , source unknown Was found to have fever and diarrhea in the ER Family member is also a poor historian but denies any complaints of fever or headache Neurology was called for evaluation Patient was started on empiric IV antibiotics to cover for possible [employer] infection pending cultures and LP Review of Systems - Review of Systems Systems not reviewed;Unavailable: Altered Mental Status All systems: reviewed and no additional remarkable complaints except - Constitutional Constitutional: As Per HPI - EENT Eyes: absent: As Per HPI, Blind Spots, Blurred Vision, Change in Vision, Decreased Night Vision, Diplopia, Discharge, Dry Eye, Exophthalmos, Floaters, Irritation, Itchy Eyes, Loss of Peripheral Vision, Pain, Photophobia, Requires Corrective Lenses, Sees Flashes, Spots in Vision, Tunnel Vision, Other Visual Disturbances, Loss of Vision, Other Ears: absent: As Per HPI, Decreased Hearing, Ear Discharge, Ear Pain, Tinnitus, Abnormal Hearing, Disequilibrium, Dizziness, Other Nose/Mouth/Throat: absent: As Per HPI, Epistaxis, Nasal Congestion, Nasal Discharge, Nasal Obstruction, Nasal Trauma, Nose Pain, Post Nasal Drip, Sinus Pain, Sinus Pressure, Bleeding Gums, Change in Voice, Dental Pain, Dry Mouth, Dysphagia, Halitosis, Hoarsness, Lip Swelling, Mouth Lesions, Mouth Pain, Odynophagia, Sore Throat, Throat Swelling, Tongue Swelling, Facial Pain, Neck Pain, Neck Mass, Other - Breasts Breasts: absent: As Per HPI, Change in Shape, Mass, Pain, Nipple Discharge, Nipple Inversion, Skin Changes, Swelling, Other - Cardiovascular Cardiovascular: absent: As Per HPI, Acrocyanosis, Chest Pain, Chest Pain at Rest, Chest Pain with Activity, Claudication, Diaphoresis, Dyspnea, Dyspnea on Exertion, Edema, Irregular Heart Rhythm, Pain Radiating to Arm/Neck/Jaw, Leg Edema, Leg Ulcers, Lightheadedness, Orthopnea, Palpitations, Paroxysmal Nocturnal Dyspnea, Pedal Edema, Radiating Pain, Rapid Heart Rate, Slow Heart Rate, Syncope, Other - Respiratory Respiratory: absent: As Per HPI, Cough, Dyspnea, Hemoptysis, Dyspnea on Exertion, Wheezing, Snoring, Stridor, Pain on Inspiration, Chest Congestion, Excessive Mucous Production, Change in Mucous Color, Pain with Coughing, Other - Gastrointestinal Gastrointestinal: As Per HPI, Diarrhea - Genitourinary Genitourinary: absent: As Per HPI, Change in Urinary Stream, Difficulty Urinating, Dysuria, Flank Pain, Hematuria, Pyuria, Nocturia, Urinary Incontinence, Urinary Frequency, Urinary Hesitance, Urinary Urgency, Voiding Freq/Small Amts, Freq UTI, Hx Renal/Bladder Calculi, Hx /Renal Surgery, Bladder Distension, Other - Reproductive: Female Reproductive:Female: absent: As Per HPI, Amenorrhea, Amenorrhea/ Control, Currently Menstual, Cycle <21 Days, Cycle >35 Days, Cycle Variable, Menses 1-7 Days, Menses >/= 8 Days, Menses Variable, Cycle > 4 Weeks Between, No Menses for 6 Months, Heavy Menses, Light Menses, Normal Menses, Spotting Between Cycles, S/P Hysterectomy, Menopausal, Post Menopausal, Premenarche, Abnormal Vaginal Bleeding, Dysmenorrhea, Dyspareunia, Genital Lesions, Genital Pruritis, Pelvic Pain, Prolapse Symptoms, Sexual Dysfunction, Vaginal Discharge, Vaginal Dryness, Vaginal Odor, Vaginal Pruritis, Other - Menstruation Menstruation: absent: As Per HPI, Amenorrhea, Amenorrhea/ Control, Currently Menstual, Cycle <21 Days, Cycle >35 Days, Cycle Variable, Menses 1-7 Days, Menses >/= 8 Days, Menses Variable, Cycle > 4 Weeks Between, No Menses for 6 Months, Heavy Menses, Light Menses, Normal Menses, Spotting Between Cycles, S/P Hysterectomy, Menopausal, Post Menopausal, Premenarche, Abnormal Vaginal Bleeding, Dysmenorrhea, Other - Musculoskeletal Musculoskeletal: absent: As Per HPI, Abnormal Gait, Arthralgias, Atrophy, Back Pain, Deformity, Joint Swelling, Limited Range of Motion, Loss of Height, Muscle Cramps, Muscle Weakness, Myalgias, Neck Pain, Numbness, Radiating Pain into Limb, Stiffness, Tingling, Other - Integumentary Integumentary: absent: As Per HPI, Acne, Alopecia, Bleeding Lesions, Change in Hair, Change in Nails, Change in Pigmentation, Changing Lesions, Dry Skin, Erythema, Furuncle, Hirsutism, Lesions, New Lesions, Non-Healing Lesions, Photosensitivity, Pruritus, Rash, Skin Pain, Skin Ulcer, Sores, Striae, Swelling, Unusual Bruising, Wounds, Jaundice, Other - Neurological Neurological: absent: As Per HPI, Abnormal Gait, Abnormal Hearing, Abnormal Movements, Abnormal Speech, Behavioral Changes, Burning Sensations, Confusion, Convulsions, Disequilibrium, Dizziness, Numbness, Focal Weakness, Frequent Falls, Headaches, Lack of Coordination, Loss of Vision, Memory Loss, Paresthesias, Radicular Pain, Restless Legs, Sensory Deficit, Syncope, Tingling, Tremor, Vertigo, Weakness, Other Visual Disturbances, Other - Psychiatric Psychiatric: absent: As Per HPI, Abnormal Sleep Pattern, Anhedonia, Anxiety, Auditory Hallucinations, Behavioral Changes, Change in Appetite, Change in Libido, Confusion, Depression, Difficulty Concentrating, Hallucinations, Homicidal Ideation, Hopelessness, Irritability, Memory Loss, Mood Swings, Panic Attacks, Paranoia, Suicidal Ideation, Visual Hallucinations, Tactile Hallucinations, Other - Endocrine Endocrine: absent: As Per HPI, Change in Body Appearance, Change in Libido, Cold Intolorance, Deepening of Voice, Excessive Sweating, Fatigue, Flushing, Heat Intolorance, Increase in Ring/Shoe/Hat Size, Palpitations, Polydipsia, Polyphagia, Polyuria, Other - Hematologic/Lymphatic Hematologic: absent: As Per HPI, Easy Bleeding, Easy Bruising, Lymphadenopathy, Other Past Patient History - Past Medical History & Family History Past Medical History?: Yes - Past Social History Smoking Status: Former Smoker - CARDIAC Hx Cardiac Disorders: Yes Other/Comment: CABG - PULMONARY Hx Respiratory Disorders: Yes Hx Asthma: Yes Hx Bronchitis: Yes Hx Pneumonia: Yes - NEUROLOGICAL Hx Neurological Disorder: Yes HX Cerebrovascular Accident: Yes - HEENT Hx HEENT Problems: Yes Hx Cataracts: Yes - RENAL Hx Chronic Kidney Disease: No - ENDOCRINE/METABOLIC Hx Endocrine Disorders: No Hx Diabetes Mellitus Type 2: Yes - HEMATOLOGICAL/ONCOLOGICAL Hx Blood Disorders: Yes Hx Anemia: Yes - INTEGUMENTARY Hx Dermatological Problems: No - MUSCULOSKELETAL/RHEUMATOLOGICAL Hx Musculoskeletal Disorders: Yes Hx Arthritis: Yes Hx Falls: No - GASTROINTESTINAL Hx Gastrointestinal Disorders: Yes Hx Constipation: Yes - GENITOURINARY/GYNECOLOGICAL Hx Genitourinary Disorders: No - PSYCHIATRIC Hx Psychophysiologic Disorder: No Hx Substance Use: No - SURGICAL HISTORY Hx Surgeries: Yes Hx Cholecystectomy: Yes Hx Coronary Artery Bypass Graft: Yes Other/Comment: Brain hematoma surgery x4 - ANESTHESIA Hx Anesthesia: Yes Hx Anesthesia Reactions: No Meds Allergies/Adverse Reactions: Allergies Allergy/AdvReac Type Severity Reaction Status Date / Time Penicillins Allergy RASH Verified 07/12/18 13:53 latex AdvReac RASH Verified 07/12/18 13:53 - Medications Medications: Current Medications Albuterol/Ipratropium (Duoneb 3 Mg/0.5 Mg (3 Ml) Ud) 3 ml INH RQ6 PRN PRN Reason: Shortness of Breath Enoxaparin Sodium (Lovenox) 100 mg SC DAILY [facility]; Protocol Last Admin: 07/30/18 08:51 Dose: 100 mg Vancomycin HCl 1 gm/ Sodium (Chloride) 250 mls @ 166.667 mls/hr IVPB DAILY [place]; Protocol Last Admin: 07/30/18 08:51 Dose: 166.667 mls/hr Aztreonam 1 gm/ Sodium (Chloride) 100 mls @ 100 mls/hr IVPB Q8 [place]; Protocol Last Admin: 07/30/18 08:39 Dose: 100 mls/hr Metronidazole (Flagyl 500mg/100ml Ns) 100 mls @ 100 mls/hr IVPB Q8 [place]; Protocol Last Admin: 07/30/18 08:50 Dose: 100 mls/hr Levetiracetam 500 mg/ Sodium (Chloride) 105 mls @ 210 mls/hr IVPB Q12 [facility] Last Admin: 07/30/18 08:50 Dose: 210 mls/hr Dextrose/Sodium Chloride (Dextrose 5%/0.45% Ns 1000 Ml) 1,000 mls @ 50 mls/hr IV .Q20H [place] Stop: 07/31/18 08:30 Last Admin: 07/30/18 08:49 Dose: 50 mls/hr Acyclovir 600 mg/ Sodium (Chloride) 100 mls @ 100 mls/hr IV Q24H [place]; Protocol Physical Exam - Constitutional Appears: Confused - Head Exam Head Exam: ATRAUMATIC, NORMAL INSPECTION, NORMOCEPHALIC - Eye Exam Eye Exam: PERRL. absent: Scleral icterus - ENT Exam ENT Exam: Mucous Membranes Dry, Normal External Ear Exam, Normal Oropharynx - Neck Exam Neck exam: Negative for: Lymphadenopathy, Thyromegaly - Respiratory Exam Respiratory Exam: Decreased Breath Sounds, Clear to Auscultation Bilateral - Cardiovascular Exam Cardiovascular Exam: REGULAR RHYTHM, +S1, +S2 - GI/Abdominal Exam GI & Abdominal Exam: Diminished Bowel Sounds, Distended, Soft. absent: Tenderness - Rectal Exam Rectal Exam: Deferred - Exam Exam: NORMAL INSPECTION - Extremities Exam Extremities exam: Positive for: pedal pulses present. Negative for: calf tenderness, pedal edema, tenderness - Back Exam Back exam: absent: CVA tenderness (L), CVA tenderness (R), paraspinal tenderness - Neurological Exam Neurological exam: Altered - Psychiatric Exam Psychiatric exam: Depressed - Skin Skin Exam: Dry Results - Vital Signs Recent Vital Signs: Last Vital Signs Temp 98.5 F 07/30/18 11:58 Pulse 75 07/30/18 15:00 Resp 14 07/30/18 15:00 BP 115/61 07/30/18 15:00 Pulse Ox 98 07/30/18 15:00 - Labs Result Diagrams: 07/30/18 04:50 07/30/18 04:50 Labs: Laboratory Results - last 24 hr 07/29/18 07/29/18 07/29/18 10:00 13:32 14:50 WBC RBC Hgb Hct MCV MCH MCHC RDW Plt Count MPV Neut % (Auto) Lymph % (Auto) [place] % (Auto) Eos % (Auto) Baso % (Auto) Neut # (Auto) Lymph # (Auto) [place] # (Auto) Eos # (Auto) Baso # (Auto) Neutrophils % (Manual) Lymphocytes % (Manual) Monocytes % (Manual) Eosinophils % (Manual) Platelet Estimate Hypochromasia (manual) Anisocytosis (manual) Microcytosis (manual) Target Cells [place] Cells PT INR pCO2 pO2 HCO3 ABG pH ABG Total CO2 ABG O2 Saturation ABG O2 Content ABG Base Excess ABG Hemoglobin ABG Carboxyhemoglobin POC ABG HHb (Measured) ABG Methemoglobin ABG O2 Capacity Bl[place] Test VBG pH VBG pCO2 VBG HCO3 VBG Total CO2 VBG O2 Sat (Calc) VBG Base Excess VBG Potassium A-a O2 Difference Hgb O2 Saturation Sodium Chloride Glucose Lactate FiO2 Crit Value Called To Crit Value Called By Crit Value Read Back Blood Gas Notified Time Potassium Carbon Dioxide Anion Gap BUN Creatinine Est GFR ( Amer) Est GFR (Non-Af Amer) POC Glucose (mg/dL) 138 H Random Glucose Hemoglobin A1c Lactic Acid Calcium Phosphorus Magnesium Total Bilirubin AST ALT Alkaline Phosphatase Ammonia Total Creatine Kinase Troponin I Total Protein Albumin Globulin Albumin/Globulin Ratio Venous Blood Potassium Urine Opiates Screen Negative Urine Methadone Screen Negative Ur Barbiturates Screen Negative Ur Phencyclidine Scrn Negative Ur Amphetamines Screen Negative U Benzodiazepines Scrn Negative U Oth Cocaine Metabols Negative U Cannabinoids Screen Negative C. difficile Ag & Toxin Negative 07/29/18 07/29/18 07/29/18 14:50 16:48 18:54 WBC RBC Hgb Hct MCV MCH MCHC RDW Plt Count MPV Neut % (Auto) Lymph % (Auto) [place] % (Auto) Eos % (Auto) Baso % (Auto) Neut # (Auto) Lymph # (Auto) [place] # (Auto) Eos # (Auto) Baso # (Auto) Neutrophils % (Manual) Lymphocytes % (Manual) Monocytes % (Manual) Eosinophils % (Manual) Platelet Estimate Hypochromasia (manual) Anisocytosis (manual) Microcytosis (manual) Target Cells [place] Cells PT INR pCO2 pO2 31 HCO3 ABG pH ABG Total CO2 ABG O2 Saturation ABG O2 Content ABG Base Excess ABG Hemoglobin ABG Carboxyhemoglobin POC ABG HHb (Measured) ABG Methemoglobin ABG O2 Capacity [place]aine Test VBG pH 7.15 L* VBG pCO2 60 VBG HCO3 16.6 VBG Total CO2 22.7 VBG O2 Sat (Calc) 54.4 VBG Base Excess -8.7 L VBG Potassium 4.2 A-a O2 Difference Hgb O2 Saturation Sodium 138.0 Chloride 105.0 Glucose 105 Lactate 7.8 H* FiO2 21.0 Crit Value Called To Tejinder walter md Crit Value Called By Ann hirsch Crit Value Read Back Y Blood Gas Notified Time 1655 Potassium Carbon Dioxide Anion Gap BUN Creatinine Est GFR ( Amer) Est GFR (Non-Af Amer) POC Glucose (mg/dL) 70 Random Glucose Hemoglobin A1c Lactic Acid Calcium Phosphorus 9.3 H Magnesium 2.0 Total Bilirubin AST ALT Alkaline Phosphatase Ammonia Total Creatine Kinase Troponin I Total Protein Albumin Globulin Albumin/Globulin Ratio Venous Blood Potassium 4.2 Urine Opiates Screen Urine Methadone Screen Ur Barbiturates Screen Ur Phencyclidine Scrn Ur Amphetamines Screen U Benzodiazepines Scrn U Oth Cocaine Metabols U Cannabinoids Screen C. difficile Ag & Toxin 07/29/18 07/29/18 07/29/18 19:48 19:48 20:18 WBC RBC Hgb Hct MCV MCH MCHC RDW Plt Count MPV Neut % (Auto) Lymph % (Auto) [place] % (Auto) Eos % (Auto) Baso % (Auto) Neut # (Auto) Lymph # (Auto) [place] # (Auto) Eos # (Auto) Baso # (Auto) Neutrophils % (Manual) Lymphocytes % (Manual) Monocytes % (Manual) Eosinophils % (Manual) Platelet Estimate Hypochromasia (manual) Anisocytosis (manual) Microcytosis (manual) Target Cells [place] Cells PT INR pCO2 pO2 HCO3 ABG pH ABG Total CO2 ABG O2 Saturation ABG O2 Content ABG Base Excess ABG Hemoglobin ABG Carboxyhemoglobin POC ABG HHb (Measured) ABG Methemoglobin ABG O2 Capacity [place] Test VBG pH VBG pCO2 VBG HCO3 VBG Total CO2 VBG O2 Sat (Calc) VBG Base Excess VBG Potassium A-a O2 Difference Hgb O2 Saturation Sodium Chloride Glucose Lactate FiO2 Crit Value Called To Crit Value Called By Crit Value Read Back Blood Gas Notified Time Potassium Carbon Dioxide Anion Gap BUN Creatinine Est GFR ( Amer) Est GFR (Non-Af Amer) POC Glucose (mg/dL) 147 H Random Glucose Hemoglobin A1c Lactic Acid Calcium Phosphorus Magnesium Total Bilirubin AST ALT Alkaline Phosphatase Ammonia 36 Total Creatine Kinase Troponin I 1.7800 H* Total Protein Albumin Globulin Albumin/Globulin Ratio Venous Blood Potassium Urine Opiates Screen Urine Methadone Screen Ur Barbiturates Screen Ur Phencyclidine Scrn Ur Amphetamines Screen U Benzodiazepines Scrn U Oth Cocaine Metabols U Cannabinoids Screen C. difficile Ag & Toxin 07/29/18 07/29/18 07/29/18 21:00 21:58 23:08 WBC RBC Hgb Hct MCV MCH MCHC RDW Plt Count MPV Neut % (Auto) Lymph % (Auto) [place] % (Auto) Eos % (Auto) Baso % (Auto) Neut # (Auto) Lymph # (Auto) [place] # (Auto) Eos # (Auto) Baso # (Auto) Neutrophils % (Manual) Lymphocytes % (Manual) Monocytes % (Manual) Eosinophils % (Manual) Platelet Estimate Hypochromasia (manual) Anisocytosis (manual) Microcytosis (manual) Target Cells Jeannette Cells PT INR pCO2 48 H pO2 154 H HCO3 16.9 L ABG pH 7.18 L* ABG Total CO2 19.4 L ABG O2 Saturation 100.2 H ABG O2 Content 16.3 ABG Base Excess -10.3 L ABG Hemoglobin 11.8 ABG Carboxyhemoglobin 1.9 H POC ABG HHb (Measured) -0.2 L ABG Methemoglobin 1.9 ABG O2 Capacity 16.3 [place] Test Yes VBG pH VBG pCO2 VBG HCO3 VBG Total CO2 VBG O2 Sat (Calc) VBG Base Excess VBG Potassium A-a O2 Difference -14.0 Hgb O2 Saturation 96.4 Sodium Chloride Glucose Lactate FiO2 28.0 Crit Value Called To Prieto maryellen rn Crit Value Called By 333 Crit Value Read Back Y Blood Gas Notified Time 2320 Potassium Carbon Dioxide Anion Gap BUN Creatinine Est GFR ( Amer) Est GFR (Non-Af Amer) POC Glucose (mg/dL) 132 H Random Glucose Hemoglobin A1c Lactic Acid 6.0 H* Calcium Phosphorus Magnesium Total Bilirubin AST ALT Alkaline Phosphatase Ammonia Total Creatine Kinase Troponin I Total Protein Albumin Globulin Albumin/Globulin Ratio Venous Blood Potassium Urine Opiates Screen Urine Methadone Screen Ur Barbiturates Screen Ur Phencyclidine Scrn Ur Amphetamines Screen U Benzodiazepines Scrn U Oth Cocaine Metabols U Cannabinoids Screen C. difficile Ag & Toxin 07/30/18 07/30/18 07/30/18 00:19 02:11 04:10 WBC RBC Hgb Hct MCV MCH MCHC RDW Plt Count MPV Neut % (Auto) Lymph % (Auto) [place] % (Auto) Eos % (Auto) Baso % (Auto) Neut # (Auto) Lymph # (Auto) [place] # (Auto) Eos # (Auto) Baso # (Auto) Neutrophils % (Manual) Lymphocytes % (Manual) Monocytes % (Manual) Eosinophils % (Manual) Platelet Estimate Hypochromasia (manual) Anisocytosis (manual) Microcytosis (manual) Target Cells [place] Cells PT INR pCO2 pO2 HCO3 ABG pH ABG Total CO2 ABG O2 Saturation ABG O2 Content ABG Base Excess ABG Hemoglobin ABG Carboxyhemoglobin POC ABG HHb (Measured) ABG Methemoglobin ABG O2 Capacity [place] Test VBG pH VBG pCO2 VBG HCO3 VBG Total CO2 VBG O2 Sat (Calc) VBG Base Excess VBG Potassium A-a O2 Difference Hgb O2 Saturation Sodium Chloride Glucose Lactate FiO2 Crit Value Called To Crit Value Called By Crit Value Read Back Blood Gas Notified Time Potassium Carbon Dioxide Anion Gap BUN Creatinine Est GFR ( Amer) Est GFR (Non-Af Amer) POC Glucose (mg/dL) 151 H 188 H 148 H Random Glucose Hemoglobin A1c Lactic Acid Calcium Phosphorus Magnesium Total Bilirubin AST ALT Alkaline Phosphatase Ammonia Total Creatine Kinase Troponin I Total Protein Albumin Globulin Albumin/Globulin Ratio Venous Blood Potassium Urine Opiates Screen Urine Methadone Screen Ur Barbiturates Screen Ur Phencyclidine Scrn Ur Amphetamines Screen U Benzodiazepines Scrn U Oth Cocaine Metabols U Cannabinoids Screen C. difficile Ag & Toxin 07/30/18 07/30/18 07/30/18 04:50 04:50 04:50 WBC 31.5 H RBC 4.31 Hgb 10.4 L Hct 34.0 MCV 78.8 L MCH 24.1 L MCHC 30.6 L RDW 19.8 H Plt Count 138 MPV 9.2 Neut % (Auto) 91.4 H Lymph % (Auto) 3.4 L [place] % (Auto) 5.0 Eos % (Auto) 0.0 Baso % (Auto) 0.2 Neut # (Auto) 28.8 H Lymph # (Auto) 1.1 [place] # (Auto) 1.6 H Eos # (Auto) 0.0 Baso # (Auto) 0.1 Neutrophils % (Manual) 92 H Lymphocytes % (Manual) 4 L Monocytes % (Manual) 2 Eosinophils % (Manual) 2 Platelet Estimate Normal Hypochromasia (manual) Slight Anisocytosis (manual) Slight Microcytosis (manual) Slight Target Cells Slight [place] Cells Slight PT INR pCO2 pO2 HCO3 ABG pH ABG Total CO2 ABG O2 Saturation ABG O2 Content ABG Base Excess ABG Hemoglobin ABG Carboxyhemoglobin POC ABG HHb (Measured) ABG Methemoglobin ABG O2 Capacity [place] Test VBG pH VBG pCO2 VBG HCO3 VBG Total CO2 VBG O2 Sat (Calc) VBG Base Excess VBG Potassium A-a O2 Difference Hgb O2 Saturation Sodium 138 Chloride 101 Glucose Lactate FiO2 Crit Value Called To Crit Value Called By Crit Value Read Back Blood Gas Notified Time Potassium 4.8 Carbon Dioxide 21 L Anion Gap 21 H BUN 31 H Creatinine 2.6 H Est GFR ( Amer) 23 Est GFR (Non-Af Amer) 19 POC Glucose (mg/dL) Random Glucose 231 H Hemoglobin A1c Lactic Acid 3.9 H Calcium 7.3 L Phosphorus Magnesium Total Bilirubin 2.3 H AST 6852 H ALT 3395 H Alkaline Phosphatase 124 Ammonia Total Creatine Kinase Troponin I 3.6000 H* Total Protein 6.4 Albumin 2.7 L D Globulin 3.6 Albumin/Globulin Ratio 0.7 L Venous Blood Potassium Urine Opiates Screen Urine Methadone Screen Ur Barbiturates Screen Ur Phencyclidine Scrn Ur Amphetamines Screen U Benzodiazepines Scrn U Oth Cocaine Metabols U Cannabinoids Screen C. difficile Ag & Toxin 07/30/18 07/30/18 07/30/18 04:50 05:12 05:46 WBC RBC Hgb Hct MCV MCH MCHC RDW Plt Count MPV Neut % (Auto) Lymph % (Auto) [place] % (Auto) Eos % (Auto) Baso % (Auto) Neut # (Auto) Lymph # (Auto) [place] # (Auto) Eos # (Auto) Baso # (Auto) Neutrophils % (Manual) Lymphocytes % (Manual) Monocytes % (Manual) Eosinophils % (Manual) Platelet Estimate Hypochromasia (manual) Anisocytosis (manual) Microcytosis (manual) Target Cells [place] Cells PT INR pCO2 48 H pO2 105 H HCO3 19.7 L ABG pH 7.24 L ABG Total CO2 22.1 ABG O2 Saturation 99.8 H ABG O2 Content 15.0 ABG Base Excess -6.7 L ABG Hemoglobin 11.0 L ABG Carboxyhemoglobin 2.1 H POC ABG HHb (Measured) 0.2 ABG Methemoglobin 1.7 ABG O2 Capacity 15.0 L [place] Test Yes VBG pH VBG pCO2 VBG HCO3 VBG Total CO2 VBG O2 Sat (Calc) VBG Base Excess VBG Potassium A-a O2 Difference 35.0 Hgb O2 Saturation 96.0 Sodium Chloride Glucose Lactate FiO2 28.0 Crit Value Called To Crit Value Called By Crit Value Read Back Blood Gas Notified Time Potassium Carbon Dioxide Anion Gap BUN Creatinine Est GFR ( Amer) Est GFR (Non-Af Amer) POC Glucose (mg/dL) 331 H Random Glucose Hemoglobin A1c 6.2 Lactic Acid Calcium Phosphorus Magnesium Total Bilirubin AST ALT Alkaline Phosphatase Ammonia Total Creatine Kinase Troponin I Total Protein Albumin Globulin Albumin/Globulin Ratio Venous Blood Potassium Urine Opiates Screen Urine Methadone Screen Ur Barbiturates Screen Ur Phencyclidine Scrn Ur Amphetamines Screen U Benzodiazepines Scrn U Oth Cocaine Metabols U Cannabinoids Screen C. difficile Ag & Toxin 07/30/18 07/30/18 07/30/18 07:53 07:54 09:54 WBC RBC Hgb Hct MCV MCH MCHC RDW Plt Count MPV Neut % (Auto) Lymph % (Auto) [place] % (Auto) Eos % (Auto) Baso % (Auto) Neut # (Auto) Lymph # (Auto) [place] # (Auto) Eos # (Auto) Baso # (Auto) Neutrophils % (Manual) Lymphocytes % (Manual) Monocytes % (Manual) Eosinophils % (Manual) Platelet Estimate Hypochromasia (manual) Anisocytosis (manual) Microcytosis (manual) Target Cells [place] Cells PT INR pCO2 pO2 HCO3 ABG pH ABG Total CO2 ABG O2 Saturation ABG O2 Content ABG Base Excess ABG Hemoglobin ABG Carboxyhemoglobin POC ABG HHb (Measured) ABG Methemoglobin ABG O2 Capacity [place] Test VBG pH VBG pCO2 VBG HCO3 VBG Total CO2 VBG O2 Sat (Calc) VBG Base Excess VBG Potassium A-a O2 Difference Hgb O2 Saturation Sodium Chloride Glucose Lactate FiO2 Crit Value Called To Crit Value Called By Crit Value Read Back Blood Gas Notified Time Potassium Carbon Dioxide Anion Gap BUN Creatinine Est GFR ( Amer) Est GFR (Non-Af Amer) POC Glucose (mg/dL) 160 H 134 H Random Glucose Hemoglobin A1c Lactic Acid Calcium Phosphorus Magnesium Total Bilirubin AST ALT Alkaline Phosphatase Ammonia Total Creatine Kinase 1116 H Troponin I Total Protein Albumin Globulin Albumin/Globulin Ratio Venous Blood Potassium Urine Opiates Screen Urine Methadone Screen Ur Barbiturates Screen Ur Phencyclidine Scrn Ur Amphetamines Screen U Benzodiazepines Scrn U Oth Cocaine Metabols U Cannabinoids Screen C. difficile Ag & Toxin 07/30/18 07/30/18 07/30/18 11:11 13:56 14:45 WBC RBC Hgb Hct MCV MCH MCHC RDW Plt Count MPV Neut % (Auto) Lymph % (Auto) [place] % (Auto) Eos % (Auto) Baso % (Auto) Neut # (Auto) Lymph # (Auto) [place] # (Auto) Eos # (Auto) Baso # (Auto) Neutrophils % (Manual) Lymphocytes % (Manual) Monocytes % (Manual) Eosinophils % (Manual) Platelet Estimate Hypochromasia (manual) Anisocytosis (manual) Microcytosis (manual) Target Cells [place] Cells PT 29.3 H D INR 2.6 pCO2 pO2 HCO3 ABG pH ABG Total CO2 ABG O2 Saturation ABG O2 Content ABG Base Excess ABG Hemoglobin ABG Carboxyhemoglobin POC ABG HHb (Measured) ABG Methemoglobin ABG O2 Capacity [place] Test VBG pH VBG pCO2 VBG HCO3 VBG Total CO2 VBG O2 Sat (Calc) VBG Base Excess VBG Potassium A-a O2 Difference Hgb O2 Saturation Sodium Chloride Glucose Lactate FiO2 Crit Value Called To Crit Value Called By Crit Value Read Back Blood Gas Notified Time Potassium Carbon Dioxide Anion Gap BUN Creatinine Est GFR ( Amer) Est GFR (Non-Af Amer) POC Glucose (mg/dL) 137 H 118 H Random Glucose Hemoglobin A1c Lactic Acid Calcium Phosphorus Magnesium Total Bilirubin AST ALT Alkaline Phosphatase Ammonia Total Creatine Kinase Troponin I Total Protein Albumin Globulin Albumin/Globulin Ratio Venous Blood Potassium Urine Opiates Screen Urine Methadone Screen Ur Barbiturates Screen Ur Phencyclidine Scrn Ur Amphetamines Screen U Benzodiazepines Scrn U Oth Cocaine Metabols U Cannabinoids Screen C. difficile Ag & Toxin Assessment & Plan (1) Sepsis Status: Acute (2) Change in mental state Status: Acute (3) History of CVA with residual deficit Status: Acute (4) Diabetes 1.5, managed as type 2 Status: Chronic Priority: Low (5) History of CVA (cerebrovascular accident) Status: Chronic (6) NSTEMI (non-ST elevated myocardial infarction) Status: Acute (7) JORGE A (acute kidney injury) Status: Acute - Assessment and Plan (Free Text) Assessment: 58 yo female with Hx of HTN Obesity CVA with right weakness, CAD s/p CABG Asthma wass admitted via ER with altered mental status which did not respond to Narcan and Glucose infusion by EMS Referred for ID eval because of possible sepsis , source unknown Was found to have fever and diarrhea in the ER Troponins significantly elevated as well Family member is also a poor historian but denies any complaints of fever or headache or seizures at home Patient was started on empiric IV antibiotics to cover for possible [employer]ING S[employer]ACH[employer]ATOR infection pending cultures and LP
[2018-07-30] MEDS: cefTRIAXone 2 GM in Sodium Chloride 0.9% 100 ML IVPB SCH (17:08)
[2018-07-30 22:14] LABS: ABG ALLEN TEST YES; ARTERIAL BLOOD GAS HCO3 21.7 mmol/L (21-28); ARTERIAL BLOOD GAS O2 SAT 99.1 % (95-98); ARTERIAL BLOOD GAS PCO2 49 mm/Hg (35-45); ARTERIAL BLOOD GAS PH 7.28 (7.35-7.45); ARTERIAL BLOOD GAS PO2 97 mm/Hg (80-100); ARTERIAL BLOOD GAS TCO2 24.5 mmol/L (22-28)
--- NOTE | 2018-07-30 23:01 | CP.PCM.CON ---
History of Present Illness - History of Present Illness History of Present Illness: 58 yo female with h/o CVA, DM, hypertension, and pneumonia found unresponsive at home.She had been verbal and coherent prior to that. Was visited by her son 12 hours hours earlier. Was found by EMS to be very hypoglycemic and given D50. Review of Systems - Review of Systems Systems not reviewed;Unavailable: Altered Mental Status Past Patient History - Past Medical History & Family History Past Medical History?: Yes - Past Social History Smoking Status: Former Smoker - CARDIAC Hx Cardiac Disorders: Yes Other/Comment: CABG - PULMONARY Hx Respiratory Disorders: Yes Hx Asthma: Yes Hx Bronchitis: Yes Hx Pneumonia: Yes - NEUROLOGICAL Hx Neurological Disorder: Yes HX Cerebrovascular Accident: Yes - HEENT Hx HEENT Problems: Yes Hx Cataracts: Yes - RENAL Hx Chronic Kidney Disease: No - ENDOCRINE/METABOLIC Hx Endocrine Disorders: No Hx Diabetes Mellitus Type 2: Yes - HEMATOLOGICAL/ONCOLOGICAL Hx Blood Disorders: Yes Hx Anemia: Yes - INTEGUMENTARY Hx Dermatological Problems: No - MUSCULOSKELETAL/RHEUMATOLOGICAL Hx Musculoskeletal Disorders: Yes Hx Arthritis: Yes Hx Falls: No - GASTROINTESTINAL Hx Gastrointestinal Disorders: Yes Hx Constipation: Yes - GENITOURINARY/GYNECOLOGICAL Hx Genitourinary Disorders: No - PSYCHIATRIC Hx Psychophysiologic Disorder: No Hx Substance Use: No - SURGICAL HISTORY Hx Surgeries: Yes Hx Cholecystectomy: Yes Hx Coronary Artery Bypass Graft: Yes Other/Comment: Brain hematoma surgery x4 - ANESTHESIA Hx Anesthesia: Yes Hx Anesthesia Reactions: No Meds Allergies/Adverse Reactions: Allergies Allergy/AdvReac Type Severity Reaction Status Date / Time Penicillins Allergy RASH Verified 07/12/18 13:53 latex AdvReac RASH Verified 07/12/18 13:53 - Medications Medications: Current Medications Albuterol/Ipratropium (Duoneb 3 Mg/0.5 Mg (3 Ml) Ud) 3 ml INH RQ6 PRN PRN Reason: Shortness of Breath Enoxaparin Sodium (Lovenox) 100 mg SC DAILY [place]; Protocol Last Admin: 07/30/18 08:51 Dose: 100 mg Vancomycin HCl 1 gm/ Sodium (Chloride) 250 mls @ 166.667 mls/hr IVPB DAILY [place]; Protocol Last Admin: 07/30/18 08:51 Dose: 166.667 mls/hr Metronidazole (Flagyl 500mg/100ml Ns) 100 mls @ 100 mls/hr IVPB Q8 [place]; Protocol Last Admin: 07/30/18 16:15 Dose: 100 mls/hr Levetiracetam 500 mg/ Sodium (Chloride) 105 mls @ 210 mls/hr IVPB Q12 [place] Last Admin: 07/30/18 20:27 Dose: 210 mls/hr Dextrose/Sodium Chloride (Dextrose 5%/0.45% Ns 1000 Ml) 1,000 mls @ 50 mls/hr IV .Q20H [place] Stop: 07/31/18 08:30 Last Admin: 07/30/18 08:49 Dose: 50 mls/hr Acyclovir 600 mg/ Sodium (Chloride) 100 mls @ 100 mls/hr IV Q24H [place]; Protocol Last Admin: 07/30/18 17:08 Dose: 100 mls/hr Ceftriaxone Sodium 2 gm/ (Sodium Chloride) 100 mls @ 100 mls/hr IVPB DAILY [place]; Protocol Last Admin: 07/30/18 17:08 Dose: 100 mls/hr Physical Exam - Head Exam Head Exam: ATRAUMATIC - Eye Exam Eye Exam: PERRL - ENT Exam ENT Exam: Normal Exam - Neck Exam Neck exam: Positive for: Normal Inspection - Respiratory Exam Respiratory Exam: Clear to Auscultation Bilateral - Cardiovascular Exam Cardiovascular Exam: REGULAR RHYTHM, +S1, +S2 - GI/Abdominal Exam GI & Abdominal Exam: Distended, Hypoactive Bowel Sounds, Soft - Rectal Exam Rectal Exam: NORMAL INSPECTION Results - Vital Signs Recent Vital Signs: Last Vital Signs Temp 99 F 07/30/18 20:00 Pulse 77 07/30/18 20:00 Resp 13 07/30/18 20:00 BP 110/56 L 07/30/18 21:08 Pulse Ox 95 07/30/18 20:00 - Labs Result Diagrams: 07/30/18 04:50 07/30/18 04:50 Labs: Laboratory Results - last 24 hr 07/29/18 07/29/18 07/30/18 10:00 23:08 00:19 WBC RBC Hgb Hct MCV MCH MCHC RDW Plt Count MPV Neut % (Auto) Lymph % (Auto) [place] % (Auto) Eos % (Auto) Baso % (Auto) Neut # (Auto) Lymph # (Auto) [place] # (Auto) Eos # (Auto) Baso # (Auto) Neutrophils % (Manual) Lymphocytes % (Manual) Monocytes % (Manual) Eosinophils % (Manual) Platelet Estimate Hypochromasia (manual) Anisocytosis (manual) Microcytosis (manual) Target Cells Jeannette Cells PT INR pCO2 48 H pO2 154 H HCO3 16.9 L ABG pH 7.18 L* ABG Total CO2 19.4 L ABG O2 Saturation 100.2 H ABG O2 Content 16.3 ABG Base Excess -10.3 L ABG Hemoglobin 11.8 ABG Carboxyhemoglobin 1.9 H POC ABG HHb (Measured) -0.2 L ABG Methemoglobin 1.9 ABG O2 Capacity 16.3 Blaine Test Yes ABG Potassium A-a O2 Difference -14.0 Hgb O2 Saturation 96.4 Glucose Lactate FiO2 28.0 Crit Value Called To Prieto maryellen guillaume Crit Value Called By 333 Crit Value Read Back Y Blood Gas Notified Time 2320 Sodium Potassium Chloride Carbon Dioxide Anion Gap BUN Creatinine Est GFR ( Amer) Est GFR (Non-Af Amer) POC Glucose (mg/dL) 151 H Random Glucose Hemoglobin A1c Lactic Acid Calcium Total Bilirubin AST ALT Alkaline Phosphatase Ammonia Total Creatine Kinase Troponin I Total Protein Albumin Globulin Albumin/Globulin Ratio Arterial Blood Potassium C. difficile Ag & Toxin Negative Influenza Typ A,B (EIA) 07/30/18 07/30/18 07/30/18 02:11 04:10 04:50 WBC RBC Hgb Hct MCV MCH MCHC RDW Plt Count MPV Neut % (Auto) Lymph % (Auto) [place] % (Auto) Eos % (Auto) Baso % (Auto) Neut # (Auto) Lymph # (Auto) [place] # (Auto) Eos # (Auto) Baso # (Auto) Neutrophils % (Manual) Lymphocytes % (Manual) Monocytes % (Manual) Eosinophils % (Manual) Platelet Estimate Hypochromasia (manual) Anisocytosis (manual) Microcytosis (manual) Target Cells [place] Cells PT INR pCO2 pO2 HCO3 ABG pH ABG Total CO2 ABG O2 Saturation ABG O2 Content ABG Base Excess ABG Hemoglobin ABG Carboxyhemoglobin POC ABG HHb (Measured) ABG Methemoglobin ABG O2 Capacity [place] Test ABG Potassium A-a O2 Difference Hgb O2 Saturation Glucose Lactate FiO2 Crit Value Called To Crit Value Called By Crit Value Read Back Blood Gas Notified Time Sodium Potassium Chloride Carbon Dioxide Anion Gap BUN Creatinine Est GFR ( Amer) Est GFR (Non-Af Amer) POC Glucose (mg/dL) 188 H 148 H Random Glucose Hemoglobin A1c Lactic Acid 3.9 H Calcium Total Bilirubin AST ALT Alkaline Phosphatase Ammonia Total Creatine Kinase Troponin I Total Protein Albumin Globulin Albumin/Globulin Ratio Arterial Blood Potassium C. difficile Ag & Toxin Influenza Typ A,B (EIA) 07/30/18 07/30/18 07/30/18 04:50 04:50 04:50 WBC 31.5 H RBC 4.31 Hgb 10.4 L Hct 34.0 MCV 78.8 L MCH 24.1 L MCHC 30.6 L RDW 19.8 H Plt Count 138 MPV 9.2 Neut % (Auto) 91.4 H Lymph % (Auto) 3.4 L [place] % (Auto) 5.0 Eos % (Auto) 0.0 Baso % (Auto) 0.2 Neut # (Auto) 28.8 H Lymph # (Auto) 1.1 [place] # (Auto) 1.6 H Eos # (Auto) 0.0 Baso # (Auto) 0.1 Neutrophils % (Manual) 92 H Lymphocytes % (Manual) 4 L Monocytes % (Manual) 2 Eosinophils % (Manual) 2 Platelet Estimate Normal Hypochromasia (manual) Slight Anisocytosis (manual) Slight Microcytosis (manual) Slight Target Cells Slight Jeannette Cells Slight PT INR pCO2 pO2 HCO3 ABG pH ABG Total CO2 ABG O2 Saturation ABG O2 Content ABG Base Excess ABG Hemoglobin ABG Carboxyhemoglobin POC ABG HHb (Measured) ABG Methemoglobin ABG O2 Capacity [place] Test ABG Potassium A-a O2 Difference Hgb O2 Saturation Glucose Lactate FiO2 Crit Value Called To Crit Value Called By Crit Value Read Back Blood Gas Notified Time Sodium 138 Potassium 4.8 Chloride 101 Carbon Dioxide 21 L Anion Gap 21 H BUN 31 H Creatinine 2.6 H Est GFR ( Amer) 23 Est GFR (Non-Af Amer) 19 POC Glucose (mg/dL) Random Glucose 231 H Hemoglobin A1c 6.2 Lactic Acid Calcium 7.3 L Total Bilirubin 2.3 H AST 6852 H ALT 3395 H Alkaline Phosphatase 124 Ammonia Total Creatine Kinase Troponin I 3.6000 H* Total Protein 6.4 Albumin 2.7 L D Globulin 3.6 Albumin/Globulin Ratio 0.7 L Arterial Blood Potassium C. difficile Ag & Toxin Influenza Typ A,B (EIA) 07/30/18 07/30/18 07/30/18 05:12 05:46 07:53 WBC RBC Hgb Hct MCV MCH MCHC RDW Plt Count MPV Neut % (Auto) Lymph % (Auto) [place] % (Auto) Eos % (Auto) Baso % (Auto) Neut # (Auto) Lymph # (Auto) [place] # (Auto) Eos # (Auto) Baso # (Auto) Neutrophils % (Manual) Lymphocytes % (Manual) Monocytes % (Manual) Eosinophils % (Manual) Platelet Estimate Hypochromasia (manual) Anisocytosis (manual) Microcytosis (manual) Target Cells Jeannette Cells PT INR pCO2 48 H pO2 105 H HCO3 19.7 L ABG pH 7.24 L ABG Total CO2 22.1 ABG O2 Saturation 99.8 H ABG O2 Content 15.0 ABG Base Excess -6.7 L ABG Hemoglobin 11.0 L ABG Carboxyhemoglobin 2.1 H POC ABG HHb (Measured) 0.2 ABG Methemoglobin 1.7 ABG O2 Capacity 15.0 L [place] Test Yes ABG Potassium A-a O2 Difference 35.0 Hgb O2 Saturation 96.0 Glucose Lactate FiO2 28.0 Crit Value Called To Crit Value Called By Crit Value Read Back Blood Gas Notified Time Sodium Potassium Chloride Carbon Dioxide Anion Gap BUN Creatinine Est GFR ( Amer) Est GFR (Non-Af Amer) POC Glucose (mg/dL) 331 H Random Glucose Hemoglobin A1c Lactic Acid Calcium Total Bilirubin AST ALT Alkaline Phosphatase Ammonia Total Creatine Kinase 1116 H Troponin I Total Protein Albumin Globulin Albumin/Globulin Ratio Arterial Blood Potassium C. difficile Ag & Toxin Influenza Typ A,B (EIA) 07/30/18 07/30/18 07/30/18 07:54 09:54 11:11 WBC RBC Hgb Hct MCV MCH MCHC RDW Plt Count MPV Neut % (Auto) Lymph % (Auto) [place] % (Auto) Eos % (Auto) Baso % (Auto) Neut # (Auto) Lymph # (Auto) [place] # (Auto) Eos # (Auto) Baso # (Auto) Neutrophils % (Manual) Lymphocytes % (Manual) Monocytes % (Manual) Eosinophils % (Manual) Platelet Estimate Hypochromasia (manual) Anisocytosis (manual) Microcytosis (manual) Target Cells [place] Cells PT INR pCO2 pO2 HCO3 ABG pH ABG Total CO2 ABG O2 Saturation ABG O2 Content ABG Base Excess ABG Hemoglobin ABG Carboxyhemoglobin POC ABG HHb (Measured) ABG Methemoglobin ABG O2 Capacity [place] Test ABG Potassium A-a O2 Difference Hgb O2 Saturation Glucose Lactate FiO2 Crit Value Called To Crit Value Called By Crit Value Read Back Blood Gas Notified Time Sodium Potassium Chloride Carbon Dioxide Anion Gap BUN Creatinine Est GFR ( Amer) Est GFR (Non-Af Amer) POC Glucose (mg/dL) 160 H 134 H 137 H Random Glucose Hemoglobin A1c Lactic Acid Calcium Total Bilirubin AST ALT Alkaline Phosphatase Ammonia Total Creatine Kinase Troponin I Total Protein Albumin Globulin Albumin/Globulin Ratio Arterial Blood Potassium C. difficile Ag & Toxin Influenza Typ A,B (EIA) 07/30/18 07/30/18 07/30/18 13:56 14:45 15:45 WBC RBC Hgb Hct MCV MCH MCHC RDW Plt Count MPV Neut % (Auto) Lymph % (Auto) [place] % (Auto) Eos % (Auto) Baso % (Auto) Neut # (Auto) Lymph # (Auto) [place] # (Auto) Eos # (Auto) Baso # (Auto) Neutrophils % (Manual) Lymphocytes % (Manual) Monocytes % (Manual) Eosinophils % (Manual) Platelet Estimate Hypochromasia (manual) Anisocytosis (manual) Microcytosis (manual) Target Cells [place] Cells PT 29.3 H D INR 2.6 pCO2 pO2 HCO3 ABG pH ABG Total CO2 ABG O2 Saturation ABG O2 Content ABG Base Excess ABG Hemoglobin ABG Carboxyhemoglobin POC ABG HHb (Measured) ABG Methemoglobin ABG O2 Capacity [place] Test ABG Potassium A-a O2 Difference Hgb O2 Saturation Glucose Lactate FiO2 Crit Value Called To Crit Value Called By Crit Value Read Back Blood Gas Notified Time Sodium Potassium Chloride Carbon Dioxide Anion Gap BUN Creatinine Est GFR ( Amer) Est GFR (Non-Af Amer) POC Glucose (mg/dL) 118 H 112 H Random Glucose Hemoglobin A1c Lactic Acid Calcium Total Bilirubin AST ALT Alkaline Phosphatase Ammonia Total Creatine Kinase Troponin I Total Protein Albumin Globulin Albumin/Globulin Ratio Arterial Blood Potassium C. difficile Ag & Toxin Influenza Typ A,B (EIA) 07/30/18 07/30/18 07/30/18 15:50 16:23 18:10 WBC RBC Hgb Hct MCV MCH MCHC RDW Plt Count MPV Neut % (Auto) Lymph % (Auto) [place] % (Auto) Eos % (Auto) Baso % (Auto) Neut # (Auto) Lymph # (Auto) [place] # (Auto) Eos # (Auto) Baso # (Auto) Neutrophils % (Manual) Lymphocytes % (Manual) Monocytes % (Manual) Eosinophils % (Manual) Platelet Estimate Hypochromasia (manual) Anisocytosis (manual) Microcytosis (manual) Target Cells [place] Cells PT INR pCO2 pO2 HCO3 ABG pH ABG Total CO2 ABG O2 Saturation ABG O2 Content ABG Base Excess ABG Hemoglobin ABG Carboxyhemoglobin POC ABG HHb (Measured) ABG Methemoglobin ABG O2 Capacity [place] Test ABG Potassium A-a O2 Difference Hgb O2 Saturation Glucose Lactate FiO2 Crit Value Called To Crit Value Called By Crit Value Read Back Blood Gas Notified Time Sodium Potassium Chloride Carbon Dioxide Anion Gap BUN Creatinine Est GFR ( Amer) Est GFR (Non-Af Amer) POC Glucose (mg/dL) 101 Random Glucose Hemoglobin A1c Lactic Acid Calcium Total Bilirubin AST ALT Alkaline Phosphatase Ammonia 30 Total Creatine Kinase Troponin I Total Protein Albumin Globulin Albumin/Globulin Ratio Arterial Blood Potassium C. difficile Ag & Toxin Influenza Typ A,B (EIA) Negative for flu a/b 07/30/18 07/30/18 07/30/18 20:13 22:01 22:05 WBC RBC Hgb Hct MCV MCH MCHC RDW Plt Count MPV Neut % (Auto) Lymph % (Auto) [place] % (Auto) Eos % (Auto) Baso % (Auto) Neut # (Auto) Lymph # (Auto) [place] # (Auto) Eos # (Auto) Baso # (Auto) Neutrophils % (Manual) Lymphocytes % (Manual) Monocytes % (Manual) Eosinophils % (Manual) Platelet Estimate Hypochromasia (manual) Anisocytosis (manual) Microcytosis (manual) Target Cells Jeannette Cells PT INR pCO2 49 H pO2 97 HCO3 21.7 ABG pH 7.28 L ABG Total CO2 24.5 ABG O2 Saturation 99.1 H ABG O2 Content ABG Base Excess -4.1 L ABG Hemoglobin ABG Carboxyhemoglobin POC ABG HHb (Measured) ABG Methemoglobin ABG O2 Capacity [place] Test Yes ABG Potassium 4.4 A-a O2 Difference 41.0 Hgb O2 Saturation Glucose 120 H Lactate 2.0 FiO2 28.0 Crit Value Called To Crit Value Called By Crit Value Read Back Blood Gas Notified Time Sodium 137.0 Potassium Chloride 105.0 Carbon Dioxide Anion Gap BUN Creatinine Est GFR ( Amer) Est GFR (Non-Af Amer) POC Glucose (mg/dL) 116 H 131 H Random Glucose Hemoglobin A1c Lactic Acid Calcium Total Bilirubin AST ALT Alkaline Phosphatase Ammonia Total Creatine Kinase Troponin I Total Protein Albumin Globulin Albumin/Globulin Ratio Arterial Blood Potassium 4.4 C. difficile Ag & Toxin Influenza Typ A,B (EIA) - Imaging and Cardiology CT scan - abdomen Status: Report reviewed by me Assessment & Plan (1) Elevated liver enzymes Assessment and Plan: Likely due to shock liver related to several hours of unresponsiveness prior to being found. Also has very high CPK. IV hydration Continue IV antibiotics as per ID. Status: Acute
[2018-07-31] MEDS: metroNIDAZOLE 500mg/100ml NS 100 ML IVPB SCH ×3 (00:19→17:30)
[2018-07-31] MEDS ORDERED: Albuterol 0.083% Inhal Sol (2.5 mg/3 mL) UD INH ONE (05:20)
[2018-07-31] MEDS: Dextrose 5%/0.45% NS 1,000 ML IV SCH ×2 (05:22→12:00)
[2018-07-31 05:24] LABS: HEMOGLOBIN 10.4 g/dL (12.0-16.0); MEAN CELL VOLUME 77.8 fl (81.0-99.0); MEAN CORPUSCULAR HEMOGLOBIN 24.4 pg (27.0-31.0); MEAN CORPUSCULAR HGB CONC 31.3 g/dL (33.0-37.0); RBC 4.26 Mil/uL (3.80-5.20); RED CELL DISTRIBUTION WIDTH 20.1 % (11.5-14.5); WHITE BLOOD COUNT 18.8 K/uL (4.8-10.8)
[2018-07-31 05:36] LABS: ALB/GLOB RATIO 0.8 (1.0-2.1); ALBUMIN 3.2 g/dL (3.5-5.0); CALCIUM 7.9 mg/dL (8.4-10.2)
--- NOTE | 2018-07-31 08:40 | CP.PCM.CON ---
History of Present Illness - History of Present Illness History of Present Illness: This 58 years of age female , I was called to see her for abnormal kidney function. The history was taken from the medical record because the patient is not given history and not communicating. 58 year old female with a past medical history of HTN, stroke, CABG, CT, diabetes and anemia, who presents to the emergency department accompanied with EMS after patient was found unconscious at home. Patient used heroine and was found unresponsive by family members, who called 911. En route, EMS administered 2mg of Narcan nasally and 0.4 mg intravenously. Patient was also given 2 AMPs of D50. Her initial sugar was 29 past medical history of HTN, stroke, CABG, CT, diabetes and anemia Review of Systems - Review of Systems Systems not reviewed;Unavailable: Altered Mental Status - Constitutional Constitutional: Anorexia. absent: Chills - Cardiovascular Cardiovascular: Edema, Pedal Edema. absent: Chest Pain, Dyspnea - Respiratory Respiratory: absent: Cough, Dyspnea - Gastrointestinal Gastrointestinal: absent: Abdominal Pain - Genitourinary Genitourinary: As Per HPI - Musculoskeletal Musculoskeletal: absent: Atrophy - Neurological Neurological: As Per HPI - Endocrine Endocrine: As Per HPI - Hematologic/Lymphatic Hematologic: absent: Easy Bleeding Past Patient History - Past Medical History & Family History Past Medical History?: Yes - Past Social History Smoking Status: Former Smoker - CARDIAC Hx Cardiac Disorders: Yes Other/Comment: CABG - PULMONARY Hx Respiratory Disorders: Yes Hx Asthma: Yes Hx Bronchitis: Yes Hx Pneumonia: Yes - NEUROLOGICAL Hx Neurological Disorder: Yes HX Cerebrovascular Accident: Yes - HEENT Hx HEENT Problems: Yes Hx Cataracts: Yes - RENAL Hx Chronic Kidney Disease: No - ENDOCRINE/METABOLIC Hx Endocrine Disorders: No Hx Diabetes Mellitus Type 2: Yes - HEMATOLOGICAL/ONCOLOGICAL Hx Blood Disorders: Yes Hx Anemia: Yes - INTEGUMENTARY Hx Dermatological Problems: No - MUSCULOSKELETAL/RHEUMATOLOGICAL Hx Musculoskeletal Disorders: Yes Hx Arthritis: Yes Hx Falls: No - GASTROINTESTINAL Hx Gastrointestinal Disorders: Yes Hx Constipation: Yes - GENITOURINARY/GYNECOLOGICAL Hx Genitourinary Disorders: No - PSYCHIATRIC Hx Psychophysiologic Disorder: No Hx Substance Use: No - SURGICAL HISTORY Hx Surgeries: Yes Hx Cholecystectomy: Yes Hx Coronary Artery Bypass Graft: Yes Other/Comment: Brain hematoma surgery x4 - ANESTHESIA Hx Anesthesia: Yes Hx Anesthesia Reactions: No Meds Allergies/Adverse Reactions: Allergies Allergy/AdvReac Type Severity Reaction Status Date / Time Penicillins Allergy RASH Verified 07/12/18 13:53 latex AdvReac RASH Verified 07/12/18 13:53 - Medications Medications: Current Medications Albuterol/Ipratropium (Duoneb 3 Mg/0.5 Mg (3 Ml) Ud) 3 ml INH RQ6 PRN PRN Reason: Shortness of Breath Calcium Acetate (Phoslo) 667 mg PO TID [place] Enoxaparin Sodium (Lovenox) 100 mg SC DAILY [place]; Protocol Last Admin: 07/30/18 08:51 Dose: 100 mg Vancomycin HCl 1 gm/ Sodium (Chloride) 250 mls @ 166.667 mls/hr IVPB DAILY [place]; Protocol Last Admin: 07/30/18 08:51 Dose: 166.667 mls/hr Metronidazole (Flagyl 500mg/100ml Ns) 100 mls @ 100 mls/hr IVPB Q8 [place]; Protocol Last Admin: 07/31/18 00:19 Dose: 100 mls/hr Levetiracetam 500 mg/ Sodium (Chloride) 105 mls @ 210 mls/hr IVPB Q12 [place] Last Admin: 07/30/18 20:27 Dose: 210 mls/hr Acyclovir 600 mg/ Sodium (Chloride) 100 mls @ 100 mls/hr IV Q24H [place]; Protocol Last Admin: 07/30/18 17:08 Dose: 100 mls/hr Ceftriaxone Sodium 2 gm/ (Sodium Chloride) 100 mls @ 100 mls/hr IVPB DAILY [place]; Protocol Last Admin: 07/30/18 17:08 Dose: 100 mls/hr Physical Exam - Constitutional Appears: No Acute Distress, Confused - Eye Exam Eye Exam: Conjunctival injection - ENT Exam ENT Exam: Mucous Membranes Dry - Neck Exam Neck exam: Negative for: Lymphadenopathy - Respiratory Exam Respiratory Exam: NORMAL BREATHING PATTERN. absent: Rales, Rhonchi - Cardiovascular Exam Cardiovascular Exam: absent: Gallop, JVD, Rubs - GI/Abdominal Exam GI & Abdominal Exam: Normal Bowel Sounds. absent: Guarding - Extremities Exam Extremities exam: Negative for: calf tenderness - Back Exam Back exam: absent: CVA tenderness (L), CVA tenderness (R) - Neurological Exam Neurological exam: Altered - Psychiatric Exam Psychiatric exam: Normal Affect Results - Vital Signs Recent Vital Signs: Last Vital Signs Temp 97.5 F L 07/31/18 08:00 Pulse 69 07/31/18 08:00 Resp 10 L 07/31/18 08:00 BP 112/64 07/31/18 08:00 Pulse Ox 96 07/31/18 08:00 - Labs Result Diagrams: 07/31/18 05:14 07/31/18 05:14 Labs: Laboratory Results - last 24 hr 07/29/18 07/30/18 07/30/18 10:00 04:50 09:54 WBC RBC Hgb Hct MCV MCH MCHC RDW Plt Count PT INR pCO2 pO2 HCO3 ABG pH ABG Total CO2 ABG O2 Saturation ABG Base Excess Blaine Test ABG Potassium A-a O2 Difference Sodium Chloride Glucose Lactate FiO2 Potassium Carbon Dioxide Anion Gap BUN Creatinine Est GFR ( Amer) Est GFR (Non-Af Amer) POC Glucose (mg/dL) 134 H Random Glucose Hemoglobin A1c 6.2 Calcium Phosphorus Magnesium Total Bilirubin AST ALT Alkaline Phosphatase Ammonia Total Protein Albumin Globulin Albumin/Globulin Ratio Arterial Blood Potassium Random Vancomycin C. difficile Ag & Toxin Negative Influenza Typ A,B (EIA) 07/30/18 07/30/18 07/30/18 11:11 13:56 14:45 WBC RBC Hgb Hct MCV MCH MCHC RDW Plt Count PT 29.3 H D INR 2.6 pCO2 pO2 HCO3 ABG pH ABG Total CO2 ABG O2 Saturation ABG Base Excess Blaine Test ABG Potassium A-a O2 Difference Sodium Chloride Glucose Lactate FiO2 Potassium Carbon Dioxide Anion Gap BUN Creatinine Est GFR ( Amer) Est GFR (Non-Af Amer) POC Glucose (mg/dL) 137 H 118 H Random Glucose Hemoglobin A1c Calcium Phosphorus Magnesium Total Bilirubin AST ALT Alkaline Phosphatase Ammonia Total Protein Albumin Globulin Albumin/Globulin Ratio Arterial Blood Potassium Random Vancomycin C. difficile Ag & Toxin Influenza Typ A,B (EIA) 07/30/18 07/30/18 07/30/18 15:45 15:50 16:23 WBC RBC Hgb Hct MCV MCH MCHC RDW Plt Count PT INR pCO2 pO2 HCO3 ABG pH ABG Total CO2 ABG O2 Saturation ABG Base Excess Blaine Test ABG Potassium A-a O2 Difference Sodium Chloride Glucose Lactate FiO2 Potassium Carbon Dioxide Anion Gap BUN Creatinine Est GFR ( Amer) Est GFR (Non-Af Amer) POC Glucose (mg/dL) 112 H Random Glucose Hemoglobin A1c Calcium Phosphorus Magnesium Total Bilirubin AST ALT Alkaline Phosphatase Ammonia 30 Total Protein Albumin Globulin Albumin/Globulin Ratio Arterial Blood Potassium Random Vancomycin C. difficile Ag & Toxin Influenza Typ A,B (EIA) Negative for flu a/b 07/30/18 07/30/18 07/30/18 18:10 20:13 22:01 WBC RBC Hgb Hct MCV MCH MCHC RDW Plt Count PT INR pCO2 49 H pO2 97 HCO3 21.7 ABG pH 7.28 L ABG Total CO2 24.5 ABG O2 Saturation 99.1 H ABG Base Excess -4.1 L Blaine Test Yes ABG Potassium 4.4 A-a O2 Difference 41.0 Sodium 137.0 Chloride 105.0 Glucose 120 H Lactate 2.0 FiO2 28.0 Potassium Carbon Dioxide Anion Gap BUN Creatinine Est GFR ( Amer) Est GFR (Non-Af Amer) POC Glucose (mg/dL) 101 116 H Random Glucose Hemoglobin A1c Calcium Phosphorus Magnesium Total Bilirubin AST ALT Alkaline Phosphatase Ammonia Total Protein Albumin Globulin Albumin/Globulin Ratio Arterial Blood Potassium 4.4 Random Vancomycin C. difficile Ag & Toxin Influenza Typ A,B (EIA) 07/30/18 07/31/18 07/31/18 22:05 00:15 02:08 WBC RBC Hgb Hct MCV MCH MCHC RDW Plt Count PT INR pCO2 pO2 HCO3 ABG pH ABG Total CO2 ABG O2 Saturation ABG Base Excess Blaine Test ABG Potassium A-a O2 Difference Sodium Chloride Glucose Lactate FiO2 Potassium Carbon Dioxide Anion Gap BUN Creatinine Est GFR ( Amer) Est GFR (Non-Af Amer) POC Glucose (mg/dL) 131 H 123 H 126 H Random Glucose Hemoglobin A1c Calcium Phosphorus Magnesium Total Bilirubin AST ALT Alkaline Phosphatase Ammonia Total Protein Albumin Globulin Albumin/Globulin Ratio Arterial Blood Potassium Random Vancomycin C. difficile Ag & Toxin Influenza Typ A,B (EIA) 07/31/18 07/31/18 07/31/18 04:03 05:14 05:14 WBC 18.8 H RBC 4.26 Hgb 10.4 L Hct 33.1 L MCV 77.8 L MCH 24.4 L MCHC 31.3 L RDW 20.1 H Plt Count 133 PT INR pCO2 pO2 HCO3 ABG pH ABG Total CO2 ABG O2 Saturation ABG Base Excess Blaine Test ABG Potassium A-a O2 Difference Sodium 140 Chloride 100 Glucose Lactate FiO2 Potassium 4.5 Carbon Dioxide 24 Anion Gap 21 H BUN 49 H Creatinine 4.5 H Est GFR ( Amer) 12 Est GFR (Non-Af Amer) 10 POC Glucose (mg/dL) 127 H Random Glucose 125 H Hemoglobin A1c Calcium 7.9 L Phosphorus 7.2 H Magnesium 1.7 Total Bilirubin 2.0 H AST 3479 H ALT 3369 H Alkaline Phosphatase 146 H Ammonia Total Protein 7.1 Albumin 3.2 L Globulin 3.9 Albumin/Globulin Ratio 0.8 L Arterial Blood Potassium Random Vancomycin C. difficile Ag & Toxin Influenza Typ A,B (EIA) 07/31/18 07/31/18 05:14 06:35 WBC RBC Hgb Hct MCV MCH MCHC RDW Plt Count PT INR pCO2 pO2 HCO3 ABG pH ABG Total CO2 ABG O2 Saturation ABG Base Excess Blaine Test ABG Potassium A-a O2 Difference Sodium Chloride Glucose Lactate FiO2 Potassium Carbon Dioxide Anion Gap BUN Creatinine Est GFR ( Amer) Est GFR (Non-Af Amer) POC Glucose (mg/dL) 133 H Random Glucose Hemoglobin A1c Calcium Phosphorus Magnesium Total Bilirubin AST ALT Alkaline Phosphatase Ammonia Total Protein Albumin Globulin Albumin/Globulin Ratio Arterial Blood Potassium Random Vancomycin 17.5 C. difficile Ag & Toxin Influenza Typ A,B (EIA) Assessment & Plan (1) JORGE A (acute kidney injury) Assessment and Plan: Patient appears to have acute kidney injury/acute renal failure the differential diagnosis could be related to rhabdomyolysis we do not know how long the patient has been laying down in the floor or whether she was taking drugs? In addition patient has coronary artery disease history diabetes mellitus hypertension CVA Altered mental status patient is communicating Hyperphosphatemia Rule out shock liver Leukocytosis rule out sepsis may have contributing to the acute kidney injury Recommendation Appears to be oliguric acute renal failure patient was given Lasix last night 120 mg and very little urine output and we will give additional 80 mg stat dose now. If serum creatinine continued to rise patient will need dialysis IV fluid carefully 0.9 normal saline 60 cc/h however need to monitor urine output Stat CPK Phosphorus binder patient was given calcium acetate Stat spot urine for sodium osmolarity and creatinine Monitor liver function test Antibiotics considering GFR patient receiving ordered vancomycin 1 g daily that should be changed immediately please DC Vanco and changed to 500 mg daily if not every other day if creatinine continued to rise Status: Acute (2) Elevated liver enzymes Status: Acute (3) Elevated troponin level Status: Acute (4) Leukocytosis Status: Acute (5) Sepsis Status: Acute
[2018-07-31] MEDS: levETIRAcetam 500 MG in Sodium Chloride 0.9% 100 ML IVPB SCH ×2 (08:42→21:41)
[2018-07-31] MEDS: Enoxaparin 100 mg Syringe SC SCH (08:43)
[2018-07-31] MEDS ORDERED: Calcium Acetate 667 MG Capsule PO SCH (09:00)
--- NOTE | 2018-07-31 09:09 | CARD ---
APPROVED REPORT Date of service: 07/30/2018 EKG Measurement Heart [id number] <Conclusion> Atrial fibrillation Nonspecific ST-T changes Prolonged QT Abnormal ECG
[2018-07-31 09:25] LABS: URIC ACID 11.7 mg/Dl (2.2-7.5)
[2018-07-31] MEDS ORDERED: Chlorhexidine Gluconate 1 APPL/PKT TP ONE (10:00)
--- NOTE | 2018-07-31 10:00 | RAD ---
Date of service: 07/31/2018 HISTORY: pulmonary congestion COMPARISON: Frontal chest radiograph 07/30/2018. FINDINGS: LUNGS: Right central venous catheter unchanged in position. Mild left perihilar/infrahilar infiltrate with none identified at the right once again. PLEURA: No pneumothorax bilaterally. Trace left pleural effusion identified. None identified at the right. CARDIOVASCULAR: No aortic atherosclerotic calcification present. Prosthetic cardiac valve and sternotomy wires reiterated. No pulmonary vascular congestion. Borderline cardiomegaly again evident. OSSEOUS STRUCTURES: No significant abnormalities. VISUALIZED UPPER ABDOMEN: Normal. OTHER FINDINGS: None. IMPRESSION: Mild left infrahilar infiltrate with none identified at the right. Trace left pleural effusion present. Borderline cardiomegaly. No pulmonary vascular congestion.
[2018-07-31] MEDS: cefTRIAXone 2 GM in Sodium Chloride 0.9% 100 ML IVPB SCH (10:01)
[2018-07-31 10:16] LABS: CREATININE, RANDOM URINE 98.6 mg/dL
[2018-07-31 10:41] LABS: INR 2.4; PROTHROMBIN TIME 27.5 Seconds (9.8-13.1)
--- NOTE | 2018-07-31 11:19 | CP.PCM.PN ---
Subjective - Date & Time of Evaluation Date of Evaluation: 07/31/18 Time of Evaluation: 09:00 - Subjective Subjective: obtunded in ICU awaiting LP family at bedside Objective - Vital Signs/Intake and Output Vital Signs (last 24 hours): Temp Pulse Resp BP Pulse Ox 97.5 F L 85 11 L 108/71 99 07/31/18 08:00 07/31/18 10:00 07/31/18 10:00 07/31/18 10:00 07/31/18 10:00 Intake and Output: 07/31/18 07/31/18 06:59 18:59 Intake Total 805 500 Output Total 75 Balance 730 500 - Medications Medications: Current Medications Albuterol/Ipratropium (Duoneb 3 Mg/0.5 Mg (3 Ml) Ud) 3 ml INH RQ6 PRN PRN Reason: Shortness of Breath Calcium Acetate (Phoslo) 667 mg PO TID [place] Last Admin: 07/31/18 10:00 Dose: Not Given Enoxaparin Sodium (Lovenox) 100 mg SC DAILY [place]; Protocol Last Admin: 07/31/18 08:43 Dose: 100 mg Metronidazole (Flagyl 500mg/100ml Ns) 100 mls @ 100 mls/hr IVPB Q8 [place]; Protocol Last Admin: 07/31/18 08:42 Dose: 100 mls/hr Levetiracetam 500 mg/ Sodium (Chloride) 105 mls @ 210 mls/hr IVPB Q12 [place] Last Admin: 07/31/18 08:42 Dose: 210 mls/hr Acyclovir 600 mg/ Sodium (Chloride) 100 mls @ 100 mls/hr IV Q24H [place]; Protocol Last Admin: 07/30/18 17:08 Dose: 100 mls/hr Ceftriaxone Sodium 2 gm/ (Sodium Chloride) 100 mls @ 100 mls/hr IVPB DAILY [place]; Protocol Last Admin: 07/31/18 10:01 Dose: 100 mls/hr - Labs Labs: 07/31/18 05:14 07/31/18 05:14 PT 27.5 Seconds (9.8-13.1) H 07/31/18 09:30 INR 2.4 07/31/18 09:30 APTT 44.5 Seconds (25.6-37.1) H 07/29/18 14:50 - Constitutional Appears: No Acute Distress, Confused, Chronically Ill - Head Exam Head Exam: ATRAUMATIC, NORMOCEPHALIC - Eye Exam Eye Exam: absent: Scleral icterus - ENT Exam ENT Exam: Mucous Membranes Dry - Neck Exam Neck Exam: absent: Lymphadenopathy - Respiratory Exam Respiratory Exam: Decreased Breath Sounds, Rhonchi - Cardiovascular Exam Cardiovascular Exam: REGULAR RHYTHM, +S2 - GI/Abdominal Exam GI & Abdominal Exam: Distended, Soft. absent: Tenderness - Rectal Exam Rectal Exam: Deferred - Exam Exam: NORMAL INSPECTION - Extremities Exam Extremities Exam: Pedal Edema - Back Exam Back Exam: absent: CVA tenderness (L), CVA tenderness (R), paraspinal tenderness - Neurological Exam Neurological Exam: Altered - Psychiatric Exam Psychiatric exam: Depressed - Skin Skin Exam: Dry Assessment and Plan (1) Sepsis Status: Acute (2) Change in mental state Status: Acute (3) History of CVA with residual deficit Status: Acute (4) Diabetes 1.5, managed as type 2 Status: Chronic (5) History of CVA (cerebrovascular accident) Status: Chronic (6) NSTEMI (non-ST elevated myocardial infarction) Status: Acute (7) JORGE A (acute kidney injury) Status: Acute - Assessment and Plan (Free Text) Assessment: 58 yo female with Hx of HTN Obesity CVA with right weakness, CAD s/p CABG Asthma was admitted via ER with altered mental status which did not respond to Narcan and Glucose infusion by EMS Referred for ID eval because of possible sepsis , source unknown Was found to have fever and diarrhea in the ER Troponins significantly elevated as well Patient was started on empiric IV antibiotics to cover for possible [employer] infection pending cultures and LP May require dyalysis Rx Renal on board
--- NOTE | 2018-07-31 11:43 | CP.PCM.CON ---
History of Present Illness - History of Present Illness History of Present Illness: Neurology consult called by Dr. Santillan. 58 yr old woman who was found unresponsive at home, by family, thought to have taken heroine, given narcan in ER. There is no history of prior stroke or seizure. She was thought to be septic, was admitted to ICU and had VEEG started. VEEG shows burst suprression off sedation. Neurology consult dictated. Report pending. Poor prognosis. In light of exam showing: left corneals intact, gag producing left arm and leg movement, as well as burst suppression, I suspect anoxic encephalopathy. Past Patient History - Past Medical History & Family History Past Medical History?: Yes - Past Social History Smoking Status: Former Smoker - CARDIAC Hx Cardiac Disorders: Yes Other/Comment: CABG - PULMONARY Hx Respiratory Disorders: Yes Hx Asthma: Yes Hx Bronchitis: Yes Hx Pneumonia: Yes - NEUROLOGICAL Hx Neurological Disorder: Yes HX Cerebrovascular Accident: Yes - HEENT Hx HEENT Problems: Yes Hx Cataracts: Yes - RENAL Hx Chronic Kidney Disease: No - ENDOCRINE/METABOLIC Hx Endocrine Disorders: No Hx Diabetes Mellitus Type 2: Yes - HEMATOLOGICAL/ONCOLOGICAL Hx Blood Disorders: Yes Hx Anemia: Yes - INTEGUMENTARY Hx Dermatological Problems: No - MUSCULOSKELETAL/RHEUMATOLOGICAL Hx Musculoskeletal Disorders: Yes Hx Arthritis: Yes Hx Falls: No - GASTROINTESTINAL Hx Gastrointestinal Disorders: Yes Hx Constipation: Yes - GENITOURINARY/GYNECOLOGICAL Hx Genitourinary Disorders: No - PSYCHIATRIC Hx Psychophysiologic Disorder: No Hx Substance Use: No - SURGICAL HISTORY Hx Surgeries: Yes Hx Cholecystectomy: Yes Hx Coronary Artery Bypass Graft: Yes Other/Comment: Brain hematoma surgery x4 - ANESTHESIA Hx Anesthesia: Yes Hx Anesthesia Reactions: No Meds Allergies/Adverse Reactions: Allergies Allergy/AdvReac Type Severity Reaction Status Date / Time Penicillins Allergy RASH Verified 07/12/18 13:53 latex AdvReac RASH Verified 07/12/18 13:53 - Medications Medications: Current Medications Albuterol/Ipratropium (Duoneb 3 Mg/0.5 Mg (3 Ml) Ud) 3 ml INH RQ6 PRN PRN Reason: Shortness of Breath Calcium Acetate (Phoslo) 667 mg PO TID [facility] Last Admin: 07/31/18 10:00 Dose: Not Given Enoxaparin Sodium (Lovenox) 100 mg SC DAILY [facility]; Protocol Last Admin: 07/31/18 08:43 Dose: 100 mg Metronidazole (Flagyl 500mg/100ml Ns) 100 mls @ 100 mls/hr IVPB Q8 [facility]; Protocol Last Admin: 07/31/18 08:42 Dose: 100 mls/hr Levetiracetam 500 mg/ Sodium (Chloride) 105 mls @ 210 mls/hr IVPB Q12 [facility] Last Admin: 07/31/18 08:42 Dose: 210 mls/hr Acyclovir 600 mg/ Sodium (Chloride) 100 mls @ 100 mls/hr IV Q24H [facility]; Protocol Last Admin: 07/30/18 17:08 Dose: 100 mls/hr Ceftriaxone Sodium 2 gm/ (Sodium Chloride) 100 mls @ 100 mls/hr IVPB DAILY [facility]; Protocol Last Admin: 07/31/18 10:01 Dose: 100 mls/hr Dextrose/Sodium Chloride (Dextrose 5%/0.45% Ns 1000 Ml) 1,000 mls @ 75 mls/hr IV .[id number] [facility] Stop: 08/01/18 11:27 Results - Vital Signs Recent Vital Signs: Last Vital Signs Temp 97.5 F L 07/31/18 08:00 Pulse 85 07/31/18 10:00 Resp 11 L 07/31/18 10:00 BP 108/71 07/31/18 10:00 Pulse Ox 99 07/31/18 10:00 - Labs Result Diagrams: 07/31/18 05:14 07/31/18 05:14 Labs: Laboratory Results - last 24 hr 07/30/18 07/30/18 07/30/18 04:50 13:56 14:45 WBC RBC Hgb Hct MCV MCH MCHC RDW Plt Count PT 29.3 H D INR 2.6 pCO2 pO2 HCO3 ABG pH ABG Total CO2 ABG O2 Saturation ABG Base Excess Blaine Test ABG Potassium A-a O2 Difference Sodium Chloride Glucose Lactate FiO2 Potassium Carbon Dioxide Anion Gap BUN Creatinine Est GFR ( Amer) Est GFR (Non-Af Amer) POC Glucose (mg/dL) 118 H Random Glucose Hemoglobin A1c 6.2 Uric Acid Calcium Phosphorus Magnesium Total Bilirubin AST ALT Alkaline Phosphatase Ammonia Total Creatine Kinase Total Protein Albumin Globulin Albumin/Globulin Ratio Arterial Blood Potassium Urine Osmolality Ur Random Creatinine Ur Random Sodium Random Vancomycin Influenza Typ A,B (EIA) 07/30/18 07/30/18 07/30/18 15:45 15:50 16:23 WBC RBC Hgb Hct MCV MCH MCHC RDW Plt Count PT INR pCO2 pO2 HCO3 ABG pH ABG Total CO2 ABG O2 Saturation ABG Base Excess Blaine Test ABG Potassium A-a O2 Difference Sodium Chloride Glucose Lactate FiO2 Potassium Carbon Dioxide Anion Gap BUN Creatinine Est GFR ( Amer) Est GFR (Non-Af Amer) POC Glucose (mg/dL) 112 H Random Glucose Hemoglobin A1c Uric Acid Calcium Phosphorus Magnesium Total Bilirubin AST ALT Alkaline Phosphatase Ammonia 30 Total Creatine Kinase Total Protein Albumin Globulin Albumin/Globulin Ratio Arterial Blood Potassium Urine Osmolality Ur Random Creatinine Ur Random Sodium Random Vancomycin Influenza Typ A,B (EIA) Negative for flu a/b 07/30/18 07/30/18 07/30/18 18:10 20:13 22:01 WBC RBC Hgb Hct MCV MCH MCHC RDW Plt Count PT INR pCO2 49 H pO2 97 HCO3 21.7 ABG pH 7.28 L ABG Total CO2 24.5 ABG O2 Saturation 99.1 H ABG Base Excess -4.1 L Blaine Test Yes ABG Potassium 4.4 A-a O2 Difference 41.0 Sodium 137.0 Chloride 105.0 Glucose 120 H Lactate 2.0 FiO2 28.0 Potassium Carbon Dioxide Anion Gap BUN Creatinine Est GFR ( Amer) Est GFR (Non-Af Amer) POC Glucose (mg/dL) 101 116 H Random Glucose Hemoglobin A1c Uric Acid Calcium Phosphorus Magnesium Total Bilirubin AST ALT Alkaline Phosphatase Ammonia Total Creatine Kinase Total Protein Albumin Globulin Albumin/Globulin Ratio Arterial Blood Potassium 4.4 Urine Osmolality Ur Random Creatinine Ur Random Sodium Random Vancomycin Influenza Typ A,B (EIA) 07/30/18 07/31/18 07/31/18 22:05 00:15 02:08 WBC RBC Hgb Hct MCV MCH MCHC RDW Plt Count PT INR pCO2 pO2 HCO3 ABG pH ABG Total CO2 ABG O2 Saturation ABG Base Excess Blaine Test ABG Potassium A-a O2 Difference Sodium Chloride Glucose Lactate FiO2 Potassium Carbon Dioxide Anion Gap BUN Creatinine Est GFR ( Amer) Est GFR (Non-Af Amer) POC Glucose (mg/dL) 131 H 123 H 126 H Random Glucose Hemoglobin A1c Uric Acid Calcium Phosphorus Magnesium Total Bilirubin AST ALT Alkaline Phosphatase Ammonia Total Creatine Kinase Total Protein Albumin Globulin Albumin/Globulin Ratio Arterial Blood Potassium Urine Osmolality Ur Random Creatinine Ur Random Sodium Random Vancomycin Influenza Typ A,B (EIA) 07/31/18 07/31/18 07/31/18 04:03 05:14 05:14 WBC 18.8 H RBC 4.26 Hgb 10.4 L Hct 33.1 L MCV 77.8 L MCH 24.4 L MCHC 31.3 L RDW 20.1 H Plt Count 133 PT INR pCO2 pO2 HCO3 ABG pH ABG Total CO2 ABG O2 Saturation ABG Base Excess Blaine Test ABG Potassium A-a O2 Difference Sodium 140 Chloride 100 Glucose Lactate FiO2 Potassium 4.5 Carbon Dioxide 24 Anion Gap 21 H BUN 49 H Creatinine 4.5 H Est GFR ( Amer) 12 Est GFR (Non-Af Amer) 10 POC Glucose (mg/dL) 127 H Random Glucose 125 H Hemoglobin A1c Uric Acid Calcium 7.9 L Phosphorus 7.2 H Magnesium 1.7 Total Bilirubin 2.0 H AST 3479 H ALT 3369 H Alkaline Phosphatase 146 H Ammonia Total Creatine Kinase Total Protein 7.1 Albumin 3.2 L Globulin 3.9 Albumin/Globulin Ratio 0.8 L Arterial Blood Potassium Urine Osmolality Ur Random Creatinine Ur Random Sodium Random Vancomycin Influenza Typ A,B (EIA) 07/31/18 07/31/18 07/31/18 05:14 06:35 08:38 WBC RBC Hgb Hct MCV MCH MCHC RDW Plt Count PT INR pCO2 pO2 HCO3 ABG pH ABG Total CO2 ABG O2 Saturation ABG Base Excess Blaine Test ABG Potassium A-a O2 Difference Sodium Chloride Glucose Lactate FiO2 Potassium Carbon Dioxide Anion Gap BUN Creatinine Est GFR ( Amer) Est GFR (Non-Af Amer) POC Glucose (mg/dL) 133 H 130 H Random Glucose Hemoglobin A1c Uric Acid Calcium Phosphorus Magnesium Total Bilirubin AST ALT Alkaline Phosphatase Ammonia Total Creatine Kinase Total Protein Albumin Globulin Albumin/Globulin Ratio Arterial Blood Potassium Urine Osmolality Ur Random Creatinine Ur Random Sodium Random Vancomycin 17.5 Influenza Typ A,B (EIA) 07/31/18 07/31/18 07/31/18 08:54 09:30 09:51 WBC RBC Hgb Hct MCV MCH MCHC RDW Plt Count PT 27.5 H INR 2.4 pCO2 pO2 HCO3 ABG pH ABG Total CO2 ABG O2 Saturation ABG Base Excess Blaine Test ABG Potassium A-a O2 Difference Sodium Chloride Glucose Lactate FiO2 Potassium Carbon Dioxide Anion Gap BUN Creatinine Est GFR ( Amer) Est GFR (Non-Af Amer) POC Glucose (mg/dL) Random Glucose Hemoglobin A1c Uric Acid 11.7 H Calcium Phosphorus Magnesium Total Bilirubin AST ALT Alkaline Phosphatase Ammonia Total Creatine Kinase 647 H Total Protein Albumin Globulin Albumin/Globulin Ratio Arterial Blood Potassium Urine Osmolality 308 Ur Random Creatinine 98.6 Ur Random Sodium 58 Random Vancomycin Influenza Typ A,B (EIA) 07/31/18 10:06 WBC RBC Hgb Hct MCV MCH MCHC RDW Plt Count PT INR pCO2 pO2 HCO3 ABG pH ABG Total CO2 ABG O2 Saturation ABG Base Excess Blaine Test ABG Potassium A-a O2 Difference Sodium Chloride Glucose Lactate FiO2 Potassium Carbon Dioxide Anion Gap BUN Creatinine Est GFR ( Amer) Est GFR (Non-Af Amer) POC Glucose (mg/dL) Random Glucose Hemoglobin A1c Uric Acid Calcium Phosphorus Magnesium Total Bilirubin AST ALT Alkaline Phosphatase Ammonia Total Creatine Kinase Total Protein Albumin Globulin Albumin/Globulin Ratio Arterial Blood Potassium Urine Osmolality Ur Random Creatinine Ur Random Sodium Random Vancomycin 16.6 Influenza Typ A,B (EIA)
[2018-07-31 13:09] LABS: HEPATITIS B SURFACE AG Negative (NEGATIVE)
[2018-07-31 13:15] LABS: HEPATITIS A IGM NEGATIVE (NEGATIVE); HEPATITIS B CORE AB NEGATIVE (NEGATIVE)
[2018-07-31 13:27] LABS: HEPATITIS C ANTIBODY NEGATIVE (NEGATIVE)
--- NOTE | 2018-07-31 14:46 | CP.PCM.PN ---
Subjective - Date & Time of Evaluation Date of Evaluation: 07/31/18 Time of Evaluation: 14:40 - Subjective Subjective: Neuro Follow-Up Note: Mrs. Landis was evaluated this afternoon in the ICU. Daughter and son at bedside. ROS unobtainable from the pt 2/2 her current mental status. Chart reviewed; discussed with primary RN. Objective - Vital Signs/Intake and Output Vital Signs (last 24 hours): Temp Pulse Resp BP Pulse Ox 98.6 F 73 11 L 114/64 99 07/31/18 12:00 07/31/18 12:00 07/31/18 12:00 07/31/18 12:00 07/31/18 12:00 Intake and Output: 07/31/18 07/31/18 06:59 18:59 Intake Total 805 600 Output Total 75 Balance 730 600 - Medications Medications: Current Medications Albuterol/Ipratropium (Duoneb 3 Mg/0.5 Mg (3 Ml) Ud) 3 ml INH RQ6 PRN PRN Reason: Shortness of Breath Calcium Acetate (Phoslo) 667 mg PO TID [facility] Last Admin: 07/31/18 13:14 Dose: Not Given Enoxaparin Sodium (Lovenox) 100 mg SC DAILY [facility]; Protocol Last Admin: 07/31/18 08:43 Dose: 100 mg Metronidazole (Flagyl 500mg/100ml Ns) 100 mls @ 100 mls/hr IVPB Q8 [facility]; Protocol Last Admin: 07/31/18 08:42 Dose: 100 mls/hr Levetiracetam 500 mg/ Sodium (Chloride) 105 mls @ 210 mls/hr IVPB Q12 [facility] Last Admin: 07/31/18 08:42 Dose: 210 mls/hr Acyclovir 600 mg/ Sodium (Chloride) 100 mls @ 100 mls/hr IV Q24H [facility]; Protocol Last Admin: 07/30/18 17:08 Dose: 100 mls/hr Ceftriaxone Sodium 2 gm/ (Sodium Chloride) 100 mls @ 100 mls/hr IVPB DAILY [facility]; Protocol Last Admin: 07/31/18 10:01 Dose: 100 mls/hr Dextrose/Sodium Chloride (Dextrose 5%/0.45% Ns 1000 Ml) 1,000 mls @ 75 mls/hr IV .[id number] [facility] Stop: 08/01/18 11:27 Last Admin: 07/31/18 12:00 Dose: 75 mls/hr - Labs Labs: 07/31/18 05:14 07/31/18 05:14 PT 27.5 Seconds (9.8-13.1) H 07/31/18 09:30 INR 2.4 07/31/18 09:30 APTT 44.5 Seconds (25.6-37.1) H 07/29/18 14:50 - Constitutional Appears: Other (appears somnolent; arousable to painful stimuli; opens eyes, moans; does not follow commands) - Head Exam Head Exam: NORMAL INSPECTION, NORMOCEPHALIC - Eye Exam Eye Exam: Normal appearance, PERRL Pupil Exam: NORMAL ACCOMODATION, PERRL Additional comments: Opens eyes spontaneously and to painful stimuli. Pupils equal in size. + corneals; + dolls eyes. - ENT Exam ENT Exam: Mucous Membranes Moist - Neck Exam Neck Exam: Normal Inspection - Respiratory Exam Respiratory Exam: NORMAL BREATHING PATTERN - Cardiovascular Exam Cardiovascular Exam: REGULAR RHYTHM - GI/Abdominal Exam GI & Abdominal Exam: Soft - Extremities Exam Extremities Exam: absent: Calf Tenderness, Pedal Edema Additional comments: Pt has residual right sided weakness from previous stroke (in 2003); + tone to RUE noted. LUE and LLE flaccid. All extremities fall immediately to the bed after being raised. - Neurological Exam Neurological Exam: Altered. absent: Alert, Awake, Reflexes Normal Additional comments: Appears somnolent; arousable to painful stimuli and sternal rub. Does not follow commands. Opens eyes spontaneously and to sternal rub. Pupils equal in size. + corneals; + dolls eyes. Pt has residual right sided weakness from previous stroke (in 2003); + tone to RUE noted. LUE and LLE flaccid. All extremities fall immediately to the bed after being raised. Unable to assess sensation. No tremors, no clonus, no involuntary or abnormal jerky movements. Toes downgoing on the left; unable to elicit plantar response on the right - Psychiatric Exam Additional comments: Appears somnolent; arousable to painful stimuli; opens eyes, moans; does not follow commands - Skin Skin Exam: Normal Color Assessment and Plan - Assessment and Plan (Free Text) Assessment: A/P: Mrs. Landis is a 58 y/o F who was admitted over the weekend after being found unresponsive at home. Per her son, Zheng, who lives with her, he last saw her at her normal state on Tuesday night at approximately 10:30pm. On Tuesday morning at approx 11:30 am him and a cousin found the pt still "asleep" but "she was foaming at the mouth." Per family she was also "gasping" for air during this time. Pt was noted to be hypoglycemic when EMS arrived; was treated accordingly and brought to [facility]. She remains in a state of somnolence today; is arousable to painful stimuli; does not follow commands. Given the pt's medical history and unknown exact time of change in mental status, we will r/o any acute stroke. She may also have anoxic brain encephalopathy. She is also septic at this time. I had an extensive conversation with the pt's daughter and son at bedside regarding diagnostic findings so far and what the neuro is going forth. All concerns and question addressed. Imaging reviewed: -CT Head (07/30/18): No acute intracranial abnormalities. No significant findings to account for the clinical presentation. No significant interval change compared to the prior examination(s). -CT Head (07/28/18): No acute intracranial abnormalities. No significant findings to account for the clinical presentation. Extensive postoperative changes described above. -EEG (07/30/18): shows burst suppression per Dr. Novak. -ECHO (07/30/18) done, results pending. -MRI Brain without contrast to r/o acute or subacute stroke. -MRA Head/Neck also ordered. -ID is recommending LP---we will first have the MRI done and evaluate need for LP after. -Continue current medications as ordered. -Continue ICU management. -night time babysitter in reviewing chart, examining pt, and discussing with family members: 40 min. -Notify neuro team of any acute changes to pt's condition. Diane Linder, RADHA, [employer] Case discussed with Dr. Santiago
--- NOTE | 2018-07-31 15:46 | CP.PCM.PN ---
Subjective - Date & Time of Evaluation Date of Evaluation: 07/31/18 Time of Evaluation: 10:00 - Subjective Subjective: patient seen and examined at bedside obtunded ros unavailable available diagnostic data reviewed Objective - Vital Signs/Intake and Output Vital Signs (last 24 hours): Temp Pulse Resp BP Pulse Ox 98.6 F 85 13 126/50 L 100 07/31/18 12:00 07/31/18 14:00 07/31/18 14:00 07/31/18 14:00 07/31/18 14:00 Intake and Output: 07/31/18 07/31/18 06:59 18:59 Intake Total 805 750 Output Total 75 Balance 730 750 - Medications Medications: Current Medications Albuterol/Ipratropium (Duoneb 3 Mg/0.5 Mg (3 Ml) Ud) 3 ml INH RQ6 PRN PRN Reason: Shortness of Breath Calcium Acetate (Phoslo) 667 mg PO TID [facility] Last Admin: 07/31/18 13:14 Dose: Not Given Enoxaparin Sodium (Lovenox) 100 mg SC DAILY [facility]; Protocol Last Admin: 07/31/18 08:43 Dose: 100 mg Metronidazole (Flagyl 500mg/100ml Ns) 100 mls @ 100 mls/hr IVPB Q8 [facility]; Protocol Last Admin: 07/31/18 08:42 Dose: 100 mls/hr Levetiracetam 500 mg/ Sodium (Chloride) 105 mls @ 210 mls/hr IVPB Q12 [facility] Last Admin: 07/31/18 08:42 Dose: 210 mls/hr Acyclovir 600 mg/ Sodium (Chloride) 100 mls @ 100 mls/hr IV Q24H [facility]; Protocol Last Admin: 07/30/18 17:08 Dose: 100 mls/hr Ceftriaxone Sodium 2 gm/ (Sodium Chloride) 100 mls @ 100 mls/hr IVPB DAILY [facility]; Protocol Last Admin: 07/31/18 10:01 Dose: 100 mls/hr Dextrose/Sodium Chloride (Dextrose 5%/0.45% Ns 1000 Ml) 1,000 mls @ 75 mls/hr IV .[id number] [facility] Stop: 08/01/18 11:27 Last Admin: 07/31/18 12:00 Dose: 75 mls/hr - Labs Labs: 07/31/18 05:14 07/31/18 05:14 PT 27.5 Seconds (9.8-13.1) H 07/31/18 09:30 INR 2.4 07/31/18 09:30 APTT 44.5 Seconds (25.6-37.1) H 07/29/18 14:50 - Constitutional Appears: Chronically Ill - Head Exam Head Exam: NORMOCEPHALIC - Respiratory Exam Respiratory Exam: Decreased Breath Sounds, Rales - Cardiovascular Exam Cardiovascular Exam: +S1, +S2 - GI/Abdominal Exam GI & Abdominal Exam: Soft - Neurological Exam Neurological Exam: absent: Alert, Awake - Skin Skin Exam: Normal Color, Warm Assessment and Plan (1) Sepsis Status: Acute (2) Creatinine elevation Status: Acute (3) Elevated liver enzymes Status: Acute (4) Elevated troponin level Status: Acute - Assessment and Plan (Free Text) Plan: monitor labs monitor vitals wbc improving renal function worsening possibly cva vs infection of scheduling representative pending mri c/w iv abx appreciate consultants input rest of plan as ordered
--- NOTE | 2018-07-31 17:27 | CARD ---
APPROVED REPORT Date of service: 07/31/2018 EXAM: Two-dimensional and M-mode echocardiogram with Doppler and color Doppler. Other Information Quality : AverageRhythm : NSR INDICATION Murmur Surgery/Intervention Status/Post Mitral Valve Replacement: 2D DIMENSIONS IVSd1.41 (0.7-1.1cm)LVDd2.57 (3.9-5.9cm) LVOT Diameter1.82 (1.8-2.4cm)PWd1.50 (0.7-1.1cm) IVSs1.69 (0.8-1.2cm)LVDs1.97 (2.5-4.0cm) FS (%) 23.3 %PWs1.73 (0.8-1.2cm) M-Mode DIMENSIONS Left Atrium (MM)4.94 (2.5-4.0cm)IVSd0.79 (0.7-1.1cm) Aortic Root2.91 (2.2-3.7cm)LVDd4.09 (4.0-5.6cm) Aortic Cusp Exc.1.41 (1.5-2.0cm)PWd1.44 (0.7-1.1cm) IVSs1.29 cmFS (%) 19 % LVDs3.32 (2.0-3.8cm)PWs2.24 cm Aortic Valve AoV Peak [id number]/sAoV VTI55.3cmAO Peak GR.41mmHg AO Mean GR.22mmHg Mitral Valve E/A ratio0.0 TDI E/Lateral E'0.0E/Medial E'0.0 Tricuspid Valve TR Peak [id number] [id number] Peak Gr.43mmHg [id number] LEFT VENTRICLE The left ventricle is normal size. There is mild concentric left ventricular hypertrophy. The left ventricular systolic function is normal. The estimated ejection fraction is 50-55% No regional wall motion abnormalities noted.. The left ventricular diastolic function cannot be assessed due to underlying atrial fibrillaiton. No left ventricle thrombus noted on this study. There is no ventricular septal defect visualized. There is no left ventricular aneurysm. There is no mass noted in the left ventricle. RIGHT VENTRICLE The right ventricle is normal size. There is normal right ventricular wall thickness. The right ventricular systolic function is normal. ATRIA The left atrium is severely dilated. The right atrium size is dilated. The interatrial septum is intact with no evidence for an atrial septal defect. AORTIC VALVE The aortic valve is normal in structure. Moderate aortic regurgitation is present. There is no aortic valvular stenosis. There is subvalvular aortic stenosis, from mitral prosthetic valve and LVH, with peak velocity - 4.0 m/sec. Consider ANNETTE to define the LVOT. There is no aortic valvular vegetation. MITRAL VALVE There is prosthetic mitral valve with slightly increased inflow velocities across the valve. There is no evidence of mitral valve prolapse. There is no significant mitral valve stenosis. There is no mitral valve regurgitation noted. TRICUSPID VALVE The tricuspid valve is normal in structure. There is moderate tricuspid valve regurgitation noted. RVSP is calculated at 49 mm Hg. There is no tricuspid valve prolapse or vegetation. There is no tricuspid valve stenosis. PULMONIC VALVE The pulmonary valve is normal in structure. There is no pulmonic valvular regurgitation. There is no pulmonic valvular stenosis. GREAT VESSELS The aortic root is normal in size. The ascending aorta is normal in size. The pulmonary artery is normal. The IVC is normal in size and collapses >50% with inspiration. PERICARDIAL EFFUSION There is no pericardial effusion. There is no pleural effusion. <Conclusion> There is mild concentric left ventricular hypertrophy. The estimated ejection fraction is 50-55% The left ventricular diastolic function cannot be assessed due to underlying atrial fibrillaiton. The left atrium is severely dilated. The right atrium size is dilated. Moderate aortic regurgitation is present. There is no aortic valvular stenosis. There is subvalvular aortic stenosis, from mitral prosthetic valve and LVH, with peak velocity - 4.0 m/sec. Consider ANNETTE to better define the subvalvular stenosis if clinically indicated. There is prosthetic mitral valve with slightly increased inflow velocities across the valve. There is moderate tricuspid valve regurgitation noted. RVSP is calculated at 49 mm Hg. The IVC is normal in size and collapses >50% with inspiration.
[2018-07-31 17:56] LABS: STREP PNEUMONIAE NEGATIVE (NEGATIVE)
--- NOTE | 2018-07-31 20:01 | CP.PCM.PN ---
Subjective - Date & Time of Evaluation Date of Evaluation: 07/31/18 Time of Evaluation: 14:00 - Subjective Subjective: Patient remains unresponsive except to deep pain. Objective - Vital Signs/Intake and Output Vital Signs (last 24 hours): Temp Pulse Resp BP Pulse Ox 97.5 F L 75 10 L 114/62 100 07/31/18 16:00 07/31/18 18:00 07/31/18 18:00 07/31/18 18:00 07/31/18 18:00 Intake and Output: 07/31/18 08/01/18 18:59 06:59 Intake Total 1150 Output Total 150 Balance 1000 - Medications Medications: Current Medications Albuterol/Ipratropium (Duoneb 3 Mg/0.5 Mg (3 Ml) Ud) 3 ml INH RQ6 PRN PRN Reason: Shortness of Breath Calcium Acetate (Phoslo) 667 mg PO TID [facility] Last Admin: 07/31/18 17:30 Dose: Not Given Enoxaparin Sodium (Lovenox) 100 mg SC DAILY [facility]; Protocol Last Admin: 07/31/18 08:43 Dose: 100 mg Metronidazole (Flagyl 500mg/100ml Ns) 100 mls @ 100 mls/hr IVPB Q8 [facility]; Protocol Last Admin: 07/31/18 17:30 Dose: 100 mls/hr Levetiracetam 500 mg/ Sodium ([facility]) 105 mls @ 210 mls/hr IVPB Q12 [facility] Last Admin: 07/31/18 08:42 Dose: 210 mls/hr Acyclovir 600 mg/ Sodium (Chloride) 100 mls @ 100 mls/hr IV Q24H [facility]; Protocol Last Admin: 07/31/18 19:18 Dose: 100 mls/hr Ceftriaxone Sodium 2 gm/ (Sodium Chloride) 100 mls @ 100 mls/hr IVPB DAILY [facility]; Protocol Last Admin: 07/31/18 10:01 Dose: 100 mls/hr Dextrose/Sodium Chloride (Dextrose 5%/0.45% Ns 1000 Ml) 1,000 mls @ 75 mls/hr IV .[id number] [facility] Stop: 08/01/18 11:27 Last Admin: 07/31/18 12:00 Dose: 75 mls/hr - Labs Labs: 07/31/18 05:14 07/31/18 05:14 PT 27.5 Seconds (9.8-13.1) H 07/31/18 09:30 INR 2.4 07/31/18 09:30 APTT 44.5 Seconds (25.6-37.1) H 07/29/18 14:50 - Head Exam Head Exam: ATRAUMATIC - Eye Exam Eye Exam: Normal appearance - ENT Exam ENT Exam: Normal Exam - Respiratory Exam Respiratory Exam: Clear to Ausculation Bilateral - Cardiovascular Exam Cardiovascular Exam: REGULAR RHYTHM - GI/Abdominal Exam GI & Abdominal Exam: Distended, Hypoactive Bowel Sounds Assessment and Plan (1) Elevated liver enzymes Assessment & Plan: LFTs including Bili appear to be improving. Patient remains obtunded. Status: Acute
[2018-07-31 21:31] LABS: N MENINGITIS ACY/W135 NEGATIVE (NEGATIVE); N MENINGITIS B/ECOLI K1 NEGATIVE (NEGATIVE); STREPTOCOCCUS B NEGATIVE (NEGATIVE)
[2018-08-01] MEDS: metroNIDAZOLE 500mg/100ml NS 100 ML IVPB SCH ×3 (01:03→16:45)
[2018-08-01] MEDS: Dextrose 5%/0.45% NS 1,000 ML IV SCH (01:05)
--- NOTE | 2018-08-01 03:34 | PN ---
DATE: 07/31/2018 CRITICAL CARE PROGRESS NOTE LOCATION: The patient in ICU, bed 4, room 24. TIME SPENT: 45 minutes. The patient is seen and evaluated at the bedside. Discussed with family members who were at the bedside. SUBJECTIVE: A 58-year-old female with a past medical history significant for obesity, hypertension, diabetes mellitus type II, coronary artery disease, status post coronary artery bypass graft at the time of surgery, cerebrovascular accident with right hemiparesis, able to ambulate at home with walker and cane, has been in her usual state until early Tuesday, noted to be unresponsive. On EMS arrival, blood sugar low. Given D50 and Narcan for suspected heroin use. Brought to emergency room, admitted to ICU. Initial CT head showed no acute event, chronic encephalomalacia. CT of abdomen showed proximal small bowel dilatation likely related to lower abdominal wall hernia/rectus disruption on the left chest x-ray, unremarkable. Repeat CT head also unchanged, seen by neurology consult. Video-assisted EEG showed breast mass pressure. No seizure episode since admission. Also no history reported for seizure; however, the patient noted to have two bowel movements, unclear bladder incontinence overnight, afebrile, normotensive, on oxygen supplement 3 liters nasal canula, saturating over 98%. This morning, lethargic but arousable. On sleep, the patient is noted to have signs and symptoms of obstructive sleep apnea. PHYSICAL EXAMINATION: CURRENT VITAL SIGNS: Temperature 98.6, heart rate 73, blood pressure 114/64, mean arterial pressure 80, respiratory rate 11, oxygen saturation 99%, 3 L nasal canula. Intake 2335, output 125, positive balance 2210. Examined weight 218 pounds. HEAD, EYES, EARS, NOSE AND THROAT: Pupils are 2 to 3 mm, reactive. No gaze preference. NECK: Supple. Trachea central. CHEST: Bilateral breath sounds. Conducted sound from upper airway. HEART: Rhythm irregular, distant. ABDOMEN: Bowel sounds are present, soft, nontender. EXTREMITIES: No clubbing or cyanosis. NEUROLOGIC: Lethargic, arousable. Right hemiparesis. Plantar reflexes are equivocal. Deep tendon reflex 2+ bilaterally. CURRENT MEDICATIONS: Include acyclovir 600 mg IV every 24 hours, Duoneb 3 mL via nebulizer every 6 hours, PhosLo 667 mg p.o. three times daily, ceftriaxone 2 g IV daily, D5 half-normal at 75 mL per hour, Lovenox 100 mg subcu daily, Keppra 500 mg IV every 12 hours, Flagyl 500 mg IV every 8 hours. MICROBIOLOGY: Urine culture no growth. Blood culture no growth. Chest x-ray done this morning, right central venous catheter in place, mild left perihilar infrahilar infiltrate. No pleural effusion or pneumothorax. No aortic atherosclerotic calcification, prosthetic cardiac valve, and sternotomy wires reiterated. CT head on 07/30/2018, no acute intracranial abnormality, no significant finding to account for the clinical presentation, stable postoperative encephalomalacia change, particularly left hemispheric with ipsilateral dilatation of the left lateral ventricle. IMPRESSION: 1. Neurology: Altered mental status, hypoglycemia on arrival by emergency medical service, unclear history of seizure or prolonged hypoglycemia given, history of cerebrovascular accident with right hemiparesis. No acute abnormality noted in the current CT. Video-electroencephalography showed some burst suppression. Leucocytosis reactive and/or due to infarction. Acute renal failure. Elevated liver enzymes suggesting shocky liver. Suggest possible sepsis. Source unclear. 2. Pulmonary: History of obstructive sleep apnea, history of asthma. Chest x-ray, perihilar congestion, no obvious sign of aspiration. 3. Cardiac: History of atrial fibrillation, on Lovenox 100 mg subcutaneous daily, rate controlled. 4. Hematology: Leukocytosis trending down. Hemoglobin and hematocrit are stable. Platelet count within normal limits. Coagulopathy with PT/INR 27.5 and 2.4. ABG, pH acceptable. 5. Gastrointestinal: Elevated liver enzymes, could be secondary to acute ischemic hepatitis. No prior history of hepatitis. We will order hepatitis B and C serology. 6. Endocrinology: History of diabetes mellitus type 2. Current blood sugar is 112. Hypoglycemia on presentation, has been on metformin, on hold. Monitor sugar to prevent recurrent hypoglycemic events. Toxicology, drug screen negative. Unclear detail about the heroin use. Keep head of bed 30-degree up. Continue ceftriaxone, metronidazole and empirically to treat any possible central nervous system infarction. 7. Renal failure, [id number]: Followed by renal consult. On D5 half-normal as recommended by renal consult. Closely monitor improvement of blood urea nitrogen and creatinine. Head of bed 30-degree up. Continue oxygen supplement. Continue Lovenox 100 mg subcutaneous daily empirically. Fortino Danielson MD [facility] # [id number]
[2018-08-01 05:40] LABS: MEAN CORPUSCULAR HEMOGLOBIN 24.3 pg (27.0-31.0); RBC 4.1 Mil/uL (3.80-5.20); RED CELL DISTRIBUTION WIDTH 19.7 % (11.5-14.5); WHITE BLOOD COUNT 14.7 K/uL (4.8-10.8)
[2018-08-01 05:46] LABS: INR 2.1; PROTHROMBIN TIME 24.2 Seconds (9.8-13.1)
[2018-08-01 06:06] LABS: ALB/GLOB RATIO 0.8 (1.0-2.1); ALBUMIN 3.1 g/dL (3.5-5.0); BILIRUBIN,DIRECT 0.9 mg/ml (0.0-0.4); CALCIUM 7.6 mg/dL (8.4-10.2)
[2018-08-01] MEDS: Enoxaparin 100 mg Syringe SC SCH (08:18)
[2018-08-01] MEDS: levETIRAcetam 500 MG in Sodium Chloride 0.9% 100 ML IVPB SCH ×2 (08:18→21:00)
[2018-08-01] MEDS: cefTRIAXone 2 GM in Sodium Chloride 0.9% 100 ML IVPB SCH (08:19)
--- NOTE | 2018-08-01 10:32 | CON ---
DATE: 07/30/2018 NEUROLOGY CONSULTATION Neurology consult called by for Ms. Maritza Landis. HISTORY OF PRESENT ILLNESS: This is a 58-year-old woman with a past medical history of hypertension, stroke, CABG, VT, diabetes, and anemia, who presented to the emergency room yesterday at around 1:30 in the afternoon after she was found unconscious at home. The patient apparently used heroin as per family members' report and she was found unresponsive, they called 911. En route, EMS administered 2 mg of Narcan and 0.4 mg IV. She was also given 2 amps of D50 because her initial sugar was 29. In the ER, her Accu-Chek was 138. Last admission was 07/12/2018 for asthma exacerbation. On admission, she was admitted to the ICU. Code stroke was not called. CAT scan of the head was done and it showed diffuse atrophy with an old large stroke that is present with encephalomalacia in the left internal capsule and frontal temporoparietal region. She is unsure when the stroke occurred. At this point, the patient has video EEG in place, which shows burst suppression with no seizure noted. Her lab shows that she has mild hyponatremia. REVIEW OF SYSTEMS: Not obtainable due to the patient's mental status. PAST MEDICAL HISTORY: As mentioned prior. PAST SURGICAL HISTORY: As mentioned prior. FAMILY HISTORY AND SOCIAL HISTORY: She has a son. We do not know more than that. We do know she used heroin, we do not know how often and how much. ALLERGIES: NO KNOWN DRUG ALLERGIES. PHYSICAL EXAMINATION: GENERAL: The patient is not intubated and not sedated. NEUROLOGIC: Pupils are pinpoint at 3 mm to 2 mm with light. There are no doll's eyes. There is corneal on the left side but not the right, and she blinks to threat onft eye compared to the right as well. There is no verbal stimuli. The patient was noted to have heavy breathing. She is not withdrawing to pain. Gag according to the nurse is present and induces a left arm and leg movement; however, I did not observe this. There is no focal twitching noted. Reflexes are +1 upper and lower limb bilaterally. IMPRESSION: This is a 58-year-old woman with anoxic encephalopathy. At this point, my differential includes myocardial infraction, new brainstem stroke affecting her gag, her corneals and her doll's eye reflexes and her level of consciousness. I do not think that she is in status epilepticus; however, I will continue her on Keppra 500 mg twice a day. I have loaded her with 1000 mg of Keppra already. PLAN: 1. MRI of the brain as soon as possible without gadolinium. 2. Continue Keppra 750 mg twice a day intravenous. 3. We way disconnect the electroencephalogram now for repeat CAT scan of the head. 4. CT of the head and neck should be done as well. 5. Echocardiogram as needed as well. 6. Poor prognosis. Thank you for this interesting consult. Our team will follow. Reynold Novak MD MTDD
[2018-08-01] MEDS ORDERED: Pneumococcal 23-Valent Vaccine IM ONE (10:44)
--- NOTE | 2018-08-01 11:25 | CP.PCM.PN ---
Subjective - Date & Time of Evaluation Date of Evaluation: 08/01/18 Time of Evaluation: 11:18 - Subjective Subjective: This patient is a 58-year-old female remained unconscious today although opening her eyes but not communicating restless in bed. Her son and other visitors at the bedside. Urine output noted to be poor patient was given fair amount of volume expansion between yesterday and the emergency room and given Lasix and still not responding she is still oliguric acute renal failure. Recommendation Patient need dialysis she is not responding to diuretics or fluid management. Worsening kidney function. I spoke to the son at the bedside also I called the daughter in the presence of the son and the nurse in ICU and consent was taken and to insert temporary dialysis catheter and proceed with hemodialysis Objective - Vital Signs/Intake and Output Vital Signs (last 24 hours): Temp Pulse Resp BP Pulse Ox 97.2 F L 78 11 L 108/75 99 08/01/18 08:00 08/01/18 10:00 08/01/18 10:00 08/01/18 10:00 08/01/18 10:00 Intake and Output: 08/01/18 08/01/18 06:59 18:59 Intake Total 1100 625 Output Total 200 Balance 1100 425 - Medications Medications: Current Medications Albuterol/Ipratropium (Duoneb 3 Mg/0.5 Mg (3 Ml) Ud) 3 ml INH RQ6 PRN PRN Reason: Shortness of Breath Calcium Acetate (Phoslo) 667 mg PO TID [facility] Last Admin: 08/01/18 08:19 Dose: Not Given Enoxaparin Sodium (Lovenox) 100 mg SC DAILY [facility]; Protocol Last Admin: 08/01/18 08:18 Dose: 100 mg Metronidazole (Flagyl 500mg/100ml Ns) 100 mls @ 100 mls/hr IVPB Q8 [facility]; Protocol Last Admin: 08/01/18 08:17 Dose: 100 mls/hr Levetiracetam 500 mg/ Sodium (Chloride) 105 mls @ 210 mls/hr IVPB Q12 [facility] Last Admin: 08/01/18 08:18 Dose: 210 mls/hr Acyclovir 600 mg/ Sodium (Chloride) 100 mls @ 100 mls/hr IV Q24H [facility]; Protocol Last Admin: 07/31/18 19:18 Dose: 100 mls/hr Ceftriaxone Sodium 2 gm/ (Sodium Chloride) 100 mls @ 100 mls/hr IVPB DAILY [facility]; Protocol Last Admin: 08/01/18 08:19 Dose: 100 mls/hr Dextrose/Sodium Chloride (Dextrose 5%/0.45% Ns 1000 Ml) 1,000 mls @ 75 mls/hr IV .[id number] [place] Stop: 08/01/18 11:27 Last Admin: 08/01/18 01:05 Dose: 75 mls/hr - Labs Labs: 08/01/18 04:35 08/01/18 04:35 PT 24.2 Seconds (9.8-13.1) H 08/01/18 04:35 INR 2.1 08/01/18 04:35 APTT 44.5 Seconds (25.6-37.1) H 07/29/18 14:50 - Constitutional Appears: Toxic, Combative - Eye Exam Eye Exam: Conjunctival injection - ENT Exam ENT Exam: Mucous Membranes Moist - Neck Exam Neck Exam: absent: Lymphadenopathy - Respiratory Exam Respiratory Exam: NORMAL BREATHING PATTERN. absent: Chest Wall Tenderness - Cardiovascular Exam Cardiovascular Exam: absent: Gallop, JVD, Rubs - GI/Abdominal Exam GI & Abdominal Exam: Soft, Normal Bowel Sounds - Extremities Exam Extremities Exam: absent: Calf Tenderness - Back Exam Back Exam: absent: CVA tenderness (L), CVA tenderness (R) - Neurological Exam Neurological Exam: Altered - Psychiatric Exam Psychiatric exam: Flat Affect - Skin Skin Exam: absent: Cyanosis Assessment and Plan (1) JORGE A (acute kidney injury) Assessment & Plan: Acute renal failure/acute kidney injury related to multifactorial including sepsis? Rhabdomyolysis. Patient also having diagnosis to rule out meningitis. Worsening kidney function serum creatinine and BUN continued to rise Diabetes mellitus and history of hypertension history of CVA. hyperurecemia Recommendation Patient need dialysis she is not responding to diuretics or fluid management. Worsening kidney function. I spoke to the son at the bedside also I called the daughter in the presence of the son and the nurse in ICU and consent was taken and to insert temporary dialysis catheter and proceed with hemodialysis please give allopurinol 300 mg daily continue IV fluid Status: Acute (2) Elevated liver enzymes Status: Acute (3) Elevated troponin level Status: Acute (4) Leukocytosis Status: Acute (5) Sepsis Status: Acute
--- NOTE | 2018-08-01 11:53 | CP.PCM.PN ---
Subjective - Date & Time of Evaluation Date of Evaluation: 08/01/18 Time of Evaluation: 09:00 - Subjective Subjective: obtunded in ICU all cultures /serologies neg thus far admitted with AMS, NSTEMI and fever - now with JORGE A requiring HD Objective - Vital Signs/Intake and Output Vital Signs (last 24 hours): Temp Pulse Resp BP Pulse Ox 97.2 F L 78 11 L 108/75 99 08/01/18 08:00 08/01/18 10:00 08/01/18 10:00 08/01/18 10:00 08/01/18 10:00 Intake and Output: 08/01/18 08/01/18 06:59 18:59 Intake Total 1100 775 Output Total 200 Balance 1100 575 - Medications Medications: Current Medications Albuterol/Ipratropium (Duoneb 3 Mg/0.5 Mg (3 Ml) Ud) 3 ml INH RQ6 PRN PRN Reason: Shortness of Breath Calcium Acetate (Phoslo) 667 mg PO TID [place]E Last Admin: 08/01/18 08:19 Dose: Not Given Enoxaparin Sodium (Lovenox) 100 mg SC DAILY [facility]; Protocol Last Admin: 08/01/18 08:18 Dose: 100 mg Metronidazole (Flagyl 500mg/100ml Ns) 100 mls @ 100 mls/hr IVPB Q8 [place]; Protocol Last Admin: 08/01/18 08:17 Dose: 100 mls/hr Levetiracetam 500 mg/ Sodium (Chloride) 105 mls @ 210 mls/hr IVPB Q12 [place] Last Admin: 08/01/18 08:18 Dose: 210 mls/hr Acyclovir 600 mg/ Sodium (Chloride) 100 mls @ 100 mls/hr IV Q24H [facility]; Protocol Last Admin: 07/31/18 19:18 Dose: 100 mls/hr Ceftriaxone Sodium 2 gm/ (Sodium Chloride) 100 mls @ 100 mls/hr IVPB DAILY [place]; Protocol Last Admin: 08/01/18 08:19 Dose: 100 mls/hr - Labs Labs: 08/01/18 04:35 08/01/18 04:35 PT 24.2 Seconds (9.8-13.1) H 08/01/18 04:35 INR 2.1 08/01/18 04:35 APTT 44.5 Seconds (25.6-37.1) H 07/29/18 14:50 - Constitutional Appears: Confused, Chronically Ill - Head Exam Head Exam: NORMOCEPHALIC - Eye Exam Eye Exam: absent: Scleral icterus - ENT Exam ENT Exam: Mucous Membranes Dry - Neck Exam Neck Exam: absent: Lymphadenopathy - Respiratory Exam Respiratory Exam: Decreased Breath Sounds - Cardiovascular Exam Cardiovascular Exam: REGULAR RHYTHM, +S2 - GI/Abdominal Exam GI & Abdominal Exam: Distended, Soft - Rectal Exam Rectal Exam: Deferred - Exam Exam: NORMAL INSPECTION - Extremities Exam Extremities Exam: Pedal Edema - Back Exam Back Exam: absent: CVA tenderness (L), CVA tenderness (R) - Neurological Exam Neurological Exam: Altered Assessment and Plan (1) Sepsis Status: Acute (2) Change in mental state Status: Acute (3) History of CVA with residual deficit Status: Acute (4) Diabetes 1.5, managed as type 2 Status: Chronic (5) History of CVA (cerebrovascular accident) Status: Chronic (6) NSTEMI (non-ST elevated myocardial infarction) Status: Acute (7) JORGE A (acute kidney injury) Status: Acute - Assessment and Plan (Free Text) Assessment: 58 yo female with Hx of HTN Obesity CVA with right weakness, CAD s/p CABG Asthma was admitted via ER with altered mental status which did not respond to Narcan and Glucose infusion by EMS admitted with fever AMS and NSTEMI now has JORGE A and in need of HD work up for stroke, infection in progress all cultures/ serologies neg thus far Patient was started on empiric IV antibiotics to cover for possible [employer] infection pending cultures and LP prognosis poor from outset
[2018-08-01 12:00] VITALS: BMI 37.3
--- NOTE | 2018-08-01 13:48 | CP.PCM.PN ---
Subjective - Date & Time of Evaluation Date of Evaluation: 08/01/18 Time of Evaluation: 13:31 - Subjective Subjective: Neurology Progress Note Mrs. Landis was seen and examined today at bedside in the ICU. She continues to have episodes of staring and does not follow commands. Sometimes she does move the left side to noxious stimulus. Recent CT head did not show any acute changes. There is an old left insular/MCA infarct. She has multiple systemic dysfunctions including liver and kidney. Objective - Vital Signs/Intake and Output Vital Signs (last 24 hours): Temp Pulse Resp BP Pulse Ox 96.4 F L 75 14 108/75 99 08/01/18 12:00 08/01/18 12:00 08/01/18 12:00 08/01/18 12:00 08/01/18 12:00 Intake and Output: 08/01/18 08/01/18 06:59 18:59 Intake Total 1100 775 Output Total 200 Balance 1100 575 - Medications Medications: Current Medications Albuterol/Ipratropium (Duoneb 3 Mg/0.5 Mg (3 Ml) Ud) 3 ml INH RQ6 PRN PRN Reason: Shortness of Breath Calcium Acetate (Phoslo) 667 mg PO TID [facility] Last Admin: 08/01/18 12:48 Dose: Not Given Enoxaparin Sodium (Lovenox) 100 mg SC DAILY [facility]; Protocol Last Admin: 08/01/18 08:18 Dose: 100 mg Metronidazole (Flagyl 500mg/100ml Ns) 100 mls @ 100 mls/hr IVPB Q8 [facility]; Protocol Last Admin: 08/01/18 08:17 Dose: 100 mls/hr Levetiracetam 500 mg/ Sodium (Chloride) 105 mls @ 210 mls/hr IVPB Q12 [facility] Last Admin: 08/01/18 08:18 Dose: 210 mls/hr Acyclovir 600 mg/ Sodium (Chloride) 100 mls @ 100 mls/hr IV Q24H [facility]; Protocol Last Admin: 07/31/18 19:18 Dose: 100 mls/hr Ceftriaxone Sodium 2 gm/ (Sodium Chloride) 100 mls @ 100 mls/hr IVPB DAILY [facility]; Protocol Last Admin: 08/01/18 08:19 Dose: 100 mls/hr - Labs Labs: 08/01/18 04:35 08/01/18 04:35 PT 24.2 Seconds (9.8-13.1) H 08/01/18 04:35 INR 2.1 08/01/18 04:35 APTT 44.5 Seconds (25.6-37.1) H 07/29/18 14:50 - Neurological Exam Neurological Exam: Altered, CN II-XII Intact Neuro motor strength exam: Left Upper Extremity: 2/1, Right Upper Extremity: 2/1, Left Lower Extremity: 2/1, Right Lower Extremity: 2/1 Additional comments: GCS 8 Assessment and Plan (1) Toxic metabolic encephalopathy Assessment & Plan: Likely due to infection, multisystem failure, metabolic derangements sup erimposed on previous encephalomalacia from left MCA stroke. I recommend treating the underlying cause. EEG is also recommended for re-evaluation. Status: Acute
[2018-08-01] MEDS ORDERED: Lidocaine Hydrochloride 1% 10 ML ONE (15:17)
--- NOTE | 2018-08-01 15:58 | PCM.SURG1 ---
Surgeon's Initial Post Op Note - Surgeon's Notes Surgeon: Elli Calculation Clerk: None Type of Anesthesia: Local Pre-Operative Diagnosis: RF Operative Findings: Pastent right IJV Post-Operative Diagnosis: RF Operation Performed: Right IJV shiley placed with the tip at the SVC Specimen/Specimens Removed: None Estimated Blood Loss: EBL {In ML}: 1 Date of Surgery/Procedure: 08/01/18 Time of Surgery/Procedure: 15:45
--- NOTE | 2018-08-01 18:01 | CP.PCM.PN ---
Subjective - Date & Time of Evaluation Date of Evaluation: 08/01/18 Time of Evaluation: 11:00 - Subjective Subjective: Continues to have poor response Noted lower WBC Noted elevated liver enzymes but significantly less. On intubation Objective - Vital Signs/Intake and Output Vital Signs (last 24 hours): Temp Pulse Resp BP Pulse Ox 97.2 F L 109 H 16 148/73 93 L 08/01/18 16:00 08/01/18 16:00 08/01/18 16:00 08/01/18 16:00 08/01/18 16:00 Intake and Output: 08/01/18 08/01/18 06:59 18:59 Intake Total 1100 1075 Output Total 225 Balance 1100 850 - Medications Medications: Current Medications Albuterol/Ipratropium (Duoneb 3 Mg/0.5 Mg (3 Ml) Ud) 3 ml INH RQ6 PRN PRN Reason: Shortness of Breath Calcium Acetate (Phoslo) 667 mg PO TID [facility] Last Admin: 08/01/18 16:46 Dose: 667 mg Enoxaparin Sodium (Lovenox) 100 mg SC DAILY [facility]; Protocol Last Admin: 08/01/18 08:18 Dose: 100 mg Metronidazole (Flagyl 500mg/100ml Ns) 100 mls @ 100 mls/hr IVPB Q8 [facility]; Protocol Last Admin: 08/01/18 16:45 Dose: 100 mls/hr Levetiracetam 500 mg/ Sodium (Chloride) 105 mls @ 210 mls/hr IVPB Q12 [facility] Last Admin: 08/01/18 08:18 Dose: 210 mls/hr Acyclovir 600 mg/ Sodium (Chloride) 100 mls @ 100 mls/hr IV Q24H [facility]; Protocol Last Admin: 08/01/18 16:46 Dose: 100 mls/hr Ceftriaxone Sodium 2 gm/ (Sodium Chloride) 100 mls @ 100 mls/hr IVPB DAILY [facility]; Protocol Last Admin: 08/01/18 08:19 Dose: 100 mls/hr - Labs Labs: 08/01/18 04:35 08/01/18 04:35 PT 24.2 Seconds (9.8-13.1) H 08/01/18 04:35 INR 2.1 08/01/18 04:35 APTT 44.5 Seconds (25.6-37.1) H 07/29/18 14:50 - ENT Exam ENT Exam: Mucous Membranes Moist - Respiratory Exam Respiratory Exam: Decreased Breath Sounds - Cardiovascular Exam Cardiovascular Exam: Tachycardia - GI/Abdominal Exam GI & Abdominal Exam: Hyperactive Bowel Sounds, Normal Bowel Sounds - Neurological Exam Neurological Exam: Altered Assessment and Plan (1) JORGE A (acute kidney injury) Status: Acute (2) Acute respiratory failure with hypoxia Status: Acute (3) Aspiration pneumonia Status: Acute (4) Elevated liver enzymes Status: Acute (5) Sepsis Status: Acute (6) Toxic metabolic encephalopathy Status: Acute - Assessment and Plan (Free Text) Plan: Cont iv antibiotics cont fluids follow up with Pulmonary and ID
--- NOTE | 2018-08-01 18:54 | CP.PCM.PN ---
Subjective - Date & Time of Evaluation Date of Evaluation: 08/01/18 Time of Evaluation: 18:53 - Subjective Subjective: Patient remains obtunded. Objective - Vital Signs/Intake and Output Vital Signs (last 24 hours): Temp Pulse Resp BP Pulse Ox 97.2 F L 83 13 94/54 L 96 08/01/18 16:00 08/01/18 18:00 08/01/18 18:00 08/01/18 18:00 08/01/18 18:00 Intake and Output: 08/01/18 08/01/18 06:59 18:59 Intake Total 1100 1525 Output Total 325 Balance 1100 1200 - Medications Medications: Current Medications Albuterol/Ipratropium (Duoneb 3 Mg/0.5 Mg (3 Ml) Ud) 3 ml INH RQ6 PRN PRN Reason: Shortness of Breath Calcium Acetate (Phoslo) 667 mg PO TID [facility] Last Admin: 08/01/18 16:46 Dose: 667 mg Enoxaparin Sodium (Lovenox) 100 mg SC DAILY [facility]; Protocol Last Admin: 08/01/18 08:18 Dose: 100 mg Metronidazole (Flagyl 500mg/100ml Ns) 100 mls @ 100 mls/hr IVPB Q8 [facility]; Protocol Last Admin: 08/01/18 16:45 Dose: 100 mls/hr Levetiracetam 500 mg/ Sodium (Chloride) 105 mls @ 210 mls/hr IVPB Q12 [facility] Last Admin: 08/01/18 08:18 Dose: 210 mls/hr Acyclovir 600 mg/ Sodium (Chloride) 100 mls @ 100 mls/hr IV Q24H [facility]; Protocol Last Admin: 08/01/18 16:46 Dose: 100 mls/hr Ceftriaxone Sodium 2 gm/ (Sodium Chloride) 100 mls @ 100 mls/hr IVPB DAILY [facility]; Protocol Last Admin: 08/01/18 08:19 Dose: 100 mls/hr - Labs Labs: 08/01/18 04:35 08/01/18 04:35 PT 24.2 Seconds (9.8-13.1) H 08/01/18 04:35 INR 2.1 08/01/18 04:35 APTT 44.5 Seconds (25.6-37.1) H 07/29/18 14:50 - Head Exam Head Exam: ATRAUMATIC - Eye Exam Eye Exam: Normal appearance - ENT Exam ENT Exam: Normal Exam - Neck Exam Neck Exam: Full ROM - Respiratory Exam Respiratory Exam: Clear to Ausculation Bilateral - Cardiovascular Exam Cardiovascular Exam: REGULAR RHYTHM - GI/Abdominal Exam GI & Abdominal Exam: Soft. absent: Tenderness Assessment and Plan (1) Elevated liver enzymes Assessment & Plan: Liver function continues to improve/ Etiology likely shock liver. Status: Acute
[2018-08-02] MEDS: metroNIDAZOLE 500mg/100ml NS 100 ML IVPB SCH (01:00)
--- NOTE | 2018-08-02 01:10 | PN ---
DATE: 08/01/2018 CRITICAL CARE PROGRESS NOTE LOCATION: The patient in ICU bed 424. Time spent 35 minutes. The patient is seen and evaluated at the bedside. Case discussed in multidisciplinary ICU rounds this morning. SUBJECTIVE: A 58-year-old female with medical history significant for obesity, hypertension, diabetes mellitus type 2, status post mitral valve replacement, status post CVA with right hemiparesis, able to ambulate at home with walker and cane. Admitted after being found unresponsive at home with low blood sugar and no response to Narcan. Initial CT head showed no acute event, but for chronic encephalomalacia. CT abdomen showed proximal small bowel dilatation, likely related to lower abdominal wall hernia or rectus disruption on the left. Chest x-ray unremarkable. Repeat CT head also with no significant changes. EEG showed burst suppression consistent with anoxic injury. No seizure episode since admission. History of obstructive sleep apnea, not on BiPAP at home. Overnight, normotensive, afebrile. On telemetry, atrial fibrillation, on Lovenox 100 mg subcu daily. This morning, more lethargic compared to yesterday but with brief episodes of staring, no further nausea or vomiting noted. Maintained saturation over 94%. PHYSICAL EXAMINATION: VITAL SIGNS: Temperature 99.1, heart rate 80 and irregular, blood pressure 108/75, mean arterial pressure 86, respiratory rate 11 to 14, saturation 100% oxygen supplement 2 L nasal cannula. Intake 2250, output 150, currently 200 since 7 o'clock. Weight 238 pounds. HEAD, EYES, EARS, NOSE AND THROAT: Pupils are in midline. No gaze preference. Reactive to light. Equal and round. NECK: Supple. Right IJ and TLC in place. CHEST: Bilateral breath sounds. Transmitted sounds from the upper airway. LUNGS: Otherwise without rhonchi or crepitations. HEART: Rhythm irregular. No audible murmur. ABDOMEN: Obese, pendulous, soft, nontender. EXTREMITIES: Trace edema. NEUROLOGIC: Lethargic. Responds to painful stimuli. Moves right and left arms to pain, localizes. Less movement only left leg as well. CURRENT MEDICATIONS: Acyclovir 600 mg IV daily, albuterol with ipratropium bromide 3 mg/0.5 mg in 3 mL every 6 hours p.r.n., PhosLo 667 mg p.o. three times daily, ceftriaxone 2 g IV daily, Lovenox 100 mg subcu daily, Keppra 500 mg IV every 12 hours, Flagyl 500 mg every 8 hours. LABORATORY DATA: WBC 14.7, hemoglobin 10, hematocrit 31.2, platelet count 140. WBC trending down. PT 24.2, INR 2.1. SMA-7: Sodium 139, potassium 4.8, chloride 101, CO2 of 22, blood urea nitrogen 62, creatinine 5.6, glucose 117, uric acid 11.7, calcium 7.6. Total bilirubin 1.3, direct bilirubin 0.9, AST 1644, ALT 2497, alkaline phosphatase 139, total protein 6.8, albumin 3.1. Urinalysis: Microscopic wbc's 4, rbc's 6. Toxicology negative. Alcohol level less than 10. Serology, hepatitis B surface antigen negative, core antibody negative, hepatitis C antibody negative, influenza A and B negative, HIV-1 and HIV-2 antibody screen negative. Neisseria meningitidis A, C, Y/W135 negative. Group B strep antigen negative. Streptococcus antigen negative. Microbiology: MRSA negative. Ova and parasite not seen. Blood culture, no growth. Chest x-ray from 07/31/2018: Mild left infrahilar infiltrate with none identified at the right. Right central venous catheter in position. No pneumothorax. Trace left pleural effusion. Prosthetic cardiac valve and sternotomy wires in place. IMPRESSION AND PLAN: 1. Neurology: Altered mental status less compared to yesterday. Hypoglycemia on arrival by emergency medical service. Unclear history of seizure or prolonged hypoglycemia. History of previous cerebrovascular accident with right hemiparesis. No acute abnormality noted in the current CT. Video-assisted electroencephalogram showed burst suppression. Suspected septic hypoxic metabolic encephalopathy. No clear evidence of central nervous system infection. Appreciate infectious disease followup. Recommendation for spinal tap. Cannot complete now as the patient is on Lovenox and coagulopathy with INR of 2.1; however, leukocytosis trending down. If persists, we will request for lumbar puncture after fresh frozen plasma. 2. Pulmonary: History of obstructive sleep apnea and history of asthma. Continue bronchodilator. Chest x-ray showed perihilar congestion. No obvious sign of aspiration. Maintaining airway now. Closely monitor for further respiratory compromise. 3. Cardiac: History of atrial fibrillation, on Lovenox 100 mg subcutaneously daily. Rate remains controlled. Given the history of mitral valve replacement and multiple organ failure, would consider getting a transesophageal echocardiogram. We will discuss with infectious disease consult. 4. Hematology: Leukocytosis trending down. Hemoglobin and hematocrit are stable. Platelet count within normal limits. Coagulopathy with a prothrombin time and international normalized ratio at international normalized ratio of 2.1. Arterial blood gas with saturation over 94%. 5. Gastroenterology: Elevated liver enzymes, trending down. No prior history of hepatitis. Hepatitis serology remain negative. 6. Endocrinology: History of diabetes mellitus type 2. Current blood sugar is in the acceptable range. Hypoglycemia on presentation. Has been on metformin, now on hold. Monitor sugar closely to prevent recurrent hypoglycemia. Toxicology drug screen negative. 7. Renal: Renal failure, acute on chronic. Etiology unclear. Followed by a renal consult. On D5 normal at 75 mL per hour. 8. Keep head of bed 30 degrees up. Closely monitor for airway protection. Intubation as needed. Continue Lovenox. Consider feeding through nasogastric tube. Fortino Danielson MD
[2018-08-02 06:35] LABS: BASO # 0.1 K/uL (0.0-0.2); BASO % 0.5 % (0.0-2.0); EOS # 0.1 K/uL (0.0-0.7); EOS % 0.7 % (0.0-4.0); HEMOGLOBIN 10.2 g/dL (12.0-16.0); LYMPH # 0.5 K/uL (1.0-4.3); LYMPH % 4.2 % (20.0-40.0); MEAN CELL VOLUME 76.2 fl (81.0-99.0); MEAN CORPUSCULAR HEMOGLOBIN 24.4 pg (27.0-31.0); MEAN PLATELET VOLUME 9.7 fl (7.2-11.7); MONO # 2.1 K/uL (0.0-0.8); MONO % 15.9 % (0.0-10.0); NEUT # 10.3 K/uL (1.8-7.0); NEUT % 78.7 % (50.0-75.0); NRBC % 0.3 % (0.0-0.0); PLATELET COUNT 124 K/uL (130-400); RED CELL DISTRIBUTION WIDTH 20.5 % (11.5-14.5)
[2018-08-02 07:29] LABS: CALCIUM 7.7 mg/dL (8.4-10.2)
[2018-08-02] MEDS ORDERED: Propofol 10 mg/ml 1,000 MG/100 ML VIAL ONE (09:12)
[2018-08-02] MEDS ORDERED: Propofol 10 mg/ml Inj (20 ML) IV ONE (09:22)
--- NOTE | 2018-08-02 10:17 | CP.PCM.PN ---
Subjective - Date & Time of Evaluation Date of Evaluation: 08/02/18 Time of Evaluation: 10:19 - Subjective Subjective: Patient remained obtunded Vital signs noted Objective - Vital Signs/Intake and Output Vital Signs (last 24 hours): Temp Pulse Resp BP Pulse Ox 98.4 F 91 H 13 131/67 99 08/02/18 08:00 08/02/18 09:30 08/02/18 06:00 08/02/18 06:00 08/02/18 06:00 Intake and Output: 08/02/18 08/02/18 06:59 18:59 Intake Total 1205 Output Total 350 Balance 855 - Medications Medications: Current Medications Albuterol/Ipratropium (Duoneb 3 Mg/0.5 Mg (3 Ml) Ud) 3 ml INH RQ6 PRN PRN Reason: Shortness of Breath Calcium Acetate (Phoslo) 667 mg PO TID MONROE Last Admin: 08/01/18 16:46 Dose: 667 mg Levetiracetam 500 mg/ Sodium (Chloride) 105 mls @ 210 mls/hr IVPB Q12 [place]E Last Admin: 08/01/18 21:00 Dose: 210 mls/hr Acyclovir 600 mg/ Sodium (Chloride) 100 mls @ 100 mls/hr IV Q24H MONROE; Protocol Last Admin: 08/01/18 16:46 Dose: 100 mls/hr Ceftriaxone Sodium 2 gm/ (Sodium Chloride) 100 mls @ 100 mls/hr IVPB DAILY [place]ROE; Protocol Last Admin: 08/01/18 08:19 Dose: 100 mls/hr - Labs Labs: 08/02/18 06:31 08/02/18 06:31 PT 24.2 Seconds (9.8-13.1) H 08/01/18 04:35 INR 2.1 08/01/18 04:35 APTT 44.5 Seconds (25.6-37.1) H 07/29/18 14:50 - Constitutional Appears: No Acute Distress - Eye Exam Eye Exam: Conjunctival injection - ENT Exam ENT Exam: Mucous Membranes Moist - Neck Exam Neck Exam: absent: Lymphadenopathy - Respiratory Exam Respiratory Exam: NORMAL BREATHING PATTERN. absent: Chest Wall Tenderness - Cardiovascular Exam Cardiovascular Exam: absent: Gallop, JVD, Rubs - GI/Abdominal Exam GI & Abdominal Exam: Soft, Normal Bowel Sounds - Extremities Exam Extremities Exam: absent: Calf Tenderness - Back Exam Back Exam: absent: CVA tenderness (L), CVA tenderness (R) - Neurological Exam Neurological Exam: Altered - Psychiatric Exam Psychiatric exam: Flat Affect - Skin Skin Exam: absent: Cyanosis Assessment and Plan (1) JORGE A (acute kidney injury) Assessment & Plan: Altered mental status Acute renal failure/acute kidney injury related to multifactorial including sepsis? Rhabdomyolysis. Patient also having diagnosis to rule out meningitis. Worsening kidney function serum creatinine and BUN continued to rise Diabetes mellitus and history of hypertension history of CVA. Patient remained obtunded with encephalopathy as noted by neurology hyperurecemia Hyperphosphatemia Recommendatio Hemodialysis at about to start. Discussed with the dialysis nurse. Order in place. Patient need treatment for hyperuricemia such allopurinol and IV fluid Status: Acute (2) Elevated liver enzymes Status: Acute (3) Elevated troponin level Status: Acute (4) Leukocytosis Status: Acute (5) Sepsis Status: Acute
[2018-08-02 10:24] LABS: LYMPHOCYTE 3 % (20-50); MONOCYTE 19 % (0-10); NEUTROPHIL 77 % (42-75); NUCLEATED RED BLOOD CELL 1 % (0-0); REACTIVE LYMPHOCYTES 1 % (0-0); TOTAL CELLS COUNTED 100
[2018-08-02] MEDS: levETIRAcetam 500 MG in Sodium Chloride 0.9% 100 ML IVPB SCH ×2 (10:33→21:14)
[2018-08-02] MEDS: cefTRIAXone 2 GM in Sodium Chloride 0.9% 100 ML IVPB SCH ×2 (10:34→16:55)
[2018-08-02] MEDS: Enoxaparin 100 mg Syringe SC SCH (10:34)
--- NOTE | 2018-08-02 10:59 | RAD ---
Date of service: 08/02/2018 HISTORY: post-intubation COMPARISON: 07/31/2018 FINDINGS: LUNGS: Patchy bilateral pulmonary infiltrate, right greater than left. Increasing on the right side compared to prior examination. PLEURA: Small bilateral pleural effusion, right greater than left. No pneumothorax. CARDIOVASCULAR: No aortic atherosclerotic calcification present. Normal heart size. Mitral valve replacement. Sternotomy wires. ET tube and NG tube noted. ET tube tip is approximately 4.9 cm above the tracheal monster. No congestive change. Right IJ multi lumen central venous catheter noted. OSSEOUS STRUCTURES: No significant abnormalities. VISUALIZED UPPER ABDOMEN: Normal. OTHER FINDINGS: None. IMPRESSION: Mild patchy bilateral pulmonary opacity. Small bilateral pleural effusion. ET tube and NG tube appropriately positioned.
[2018-08-02 11:05] LABS: ANISOCYTOSIS MODERATE; HYPOCHROMIC SLIGHT; MICROCYTOSIS SLIGHT; PLATELET ESTIMATE NORMAL (NORMAL)
[2018-08-02 11:06] LABS: PLATELET CLUMPS PRESENT
--- NOTE | 2018-08-02 11:40 | MRI ---
Date of service: 08/02/2018 PROCEDURE: MRI BRAIN WITHOUT CONTRAST HISTORY: Altered mental status; r/o acute stroke COMPARISON: Noncontrast head CT from 07/30/2018 and 07/29/2018 TECHNIQUE: Multiplanar, multisequence MR images of the brain were obtained without intravenous contrast enhancement. FINDINGS: HEMORRHAGE: None DWI: No evidence of an acute or early subacute infarction. BRAIN PARENCHYMA: There is cystic encephalomalacia and gliosis in the left is pickard radiata and basal ganglia with volume loss and ex vacuo dilatation of the left lateral ventricle. There are mild chronic microangiopathic changes. There are small lacunar infarctions in the left cerebellar hemisphere. There is no mass, mass effect or abnormal extra-axial fluid collection. VENTRICLES: There is mild age-related global parenchymal volume loss and proportionate enlargement of the ventricles and cortical sulci. CRANIUM: There is normal bone marrow signal pattern. ORBITS: Grossly unremarkable. PARANASAL SINUSES/MASTOIDS: There is mild mucosal thickening in the paranasal sinuses, complicated retention cyst/polyp in the right maxillary sinus and fluid in the sphenoid sinus. There are bilateral mastoid effusions. VASCULAR SYSTEM: There are normal signal voids in the larger intracranial arteries. OTHER FINDINGS: None. IMPRESSION: 1. No acute intracranial abnormality. 2. Cystic encephalomalacia and gliosis in the left pickard radiata and basal ganglia, sequela of remote MCA territory infarction. 3. Mild chronic microangiopathic changes and mild age-related global parenchymal volume loss. 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 4. Pansinusitis, with a complicated retention cyst/polyp in the right maxillary sinus. Fluid in the sphenoid sinus may represent acute sinusitis in the appropriate clinical setting. Bilateral mastoid effusions.
--- NOTE | 2018-08-02 12:11 | CP.PCM.PN ---
Subjective - Date & Time of Evaluation Date of Evaluation: 08/02/18 Time of Evaluation: 12:11 - Subjective Subjective: Neuro Follow-Up Note: Mrs. Landis was evaluated this afternoon in the ICU. She was intubated this morning immediately following the Brain MRI. She is currently off sedation. ROS unobtainable from pt 2/2 her condition. Chart reviewed; discussed with primary RN. Objective - Vital Signs/Intake and Output Vital Signs (last 24 hours): Temp Pulse Resp BP Pulse Ox 98.4 F 89 14 134/64 100 08/02/18 08:00 08/02/18 10:00 08/02/18 10:00 08/02/18 10:00 08/02/18 10:00 Intake and Output: 08/02/18 08/02/18 06:59 18:59 Intake Total 1205 800 Output Total 350 250 Balance 855 550 - Medications Medications: Current Medications Albuterol/Ipratropium (Duoneb 3 Mg/0.5 Mg (3 Ml) Ud) 3 ml INH RQ6 PRN PRN Reason: Shortness of Breath Calcium Acetate (Phoslo) 667 mg PO TID MONROE Last Admin: 08/02/18 10:34 Dose: 667 mg Levetiracetam 500 mg/ Sodium (Chloride) 105 mls @ 210 mls/hr IVPB Q12 [place] Last Admin: 08/02/18 10:33 Dose: 210 mls/hr Acyclovir 600 mg/ Sodium (Chloride) 100 mls @ 100 mls/hr IV Q24H [place]E; Protocol Last Admin: 08/01/18 16:46 Dose: 100 mls/hr Ceftriaxone Sodium 2 gm/ (Sodium Chloride) 100 mls @ 100 mls/hr IVPB DAILY [place]E; Protocol Last Admin: 08/02/18 10:34 Dose: 100 mls/hr - Labs Labs: 08/02/18 06:31 08/02/18 06:31 PT 24.2 Seconds (9.8-13.1) H 08/01/18 04:35 INR 2.1 08/01/18 04:35 APTT 44.5 Seconds (25.6-37.1) H 07/29/18 14:50 - Constitutional Appears: Other (intubated, off sedation; just barely opens eyes to sternal rub; no other movements to sternal rub) - Head Exam Head Exam: NORMOCEPHALIC - Eye Exam Eye Exam: PERRL Pupil Exam: NORMAL ACCOMODATION, PERRL Additional comments: Just barely opens eyes to sternal rub Pupils are equal and reactive, approx 3 mm b/l + corneals, + dolls eyes - ENT Exam ENT Exam: Mucous Membranes Moist Additional comments: intubated - Neck Exam Neck Exam: Normal Inspection - Respiratory Exam Respiratory Exam: absent: NORMAL BREATHING PATTERN (intubated) - Cardiovascular Exam Cardiovascular Exam: REGULAR RHYTHM - Extremities Exam Extremities Exam: absent: Full ROM Additional comments: No extremity movements to sternal rub No purposeful or non-purposeful movements Extremities fall immediately to the bed when raised - Neurological Exam Neurological Exam: Altered Neuro motor strength exam: Left Upper Extremity: 0, Right Upper Extremity: 0, Left Lower Extremity: 0, Right Lower Extremity: 0 Additional comments: Pt is intubated, off sedation; does not follow commands. Pupils equal and reactive; approx 3 mm b/l; + corneals, + dolls eyes Pt just barely opens eyes to sternal rub or voice No extremity movements to sternal rub No purposeful or non-purposeful movements Extremities fall immediately to the bed when raised Unable to assess sensation Toes downgoing b/l Difficulty in eliciting patellar reflexes - Psychiatric Exam Additional comments: intubated - Skin Skin Exam: Normal Color Assessment and Plan (1) Toxic metabolic encephalopathy Assessment & Plan: Imaging reviewed: -Brain MRI (08/02/18): 1. No acute intracranial abnormality. 2. Cystic encephalomalacia and gliosis in the left pickard radiata and basal ganglia, sequela of remote MCA territory infarction. 3. Mild chronic microangiopathic changes and mild age-related global parenchymal volume loss. 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 4. Pansinusitis, with a complicated retention cyst/polyp in the right maxillary sinus. Fluid in the sphenoid sinus may represent acute sinusitis in the appropriate clinical setting. Bilateral mastoid effusions. -EEG (repeat; 08/01/18): This is an abnormal EEG record that demonstrate the presence of severe non specific diffuse disturbance of cortical activity, this is keeping with a diffuse abbasi matter dysfunction, these findings re not specific. These type of EEG is usually seen in toxic metabolic encephalopathies , hypoxic-ischemic brain injury among others, clinical correlation is recommended. The EEG look similar to the previous video EEG study of 07/29, 07/30. No seizures. Patient is not in status epilepticus. -CT Head (07/30/18): No acute intracranial abnormalities. No significant findings to account for the clinical presentation. No significant interval change compared to the prior examination(s). -CT Head (07/28/18): No acute intracranial abnormalities. No significant findings to account for the clinical presentation. Extensive postoperative changes described above. -EEG (07/30/18): shows burst suppression per Dr. Novak. -ECHO (07/30/18) done, results pending. -MRA Head/Neck unable to be done at this time. -Carotid and vertebral U/S ordered--will f/u with results once completed. -We recommend for cardiology to do a ANNETTE to r/o septic endocarditis. -ID recommending LP--unable to be done at this time as pt was recently on Lovenox, INR was 2.1. May re-address this if further indicated. -Continue current medications and treatment of other acute medical issues. -Continue ICU management. -Notify neuro team of any acute changes to pt's condition. Diane Linder DNP, [employer] Case discussed with Dr. Santiago Status: Acute
--- NOTE | 2018-08-02 12:15 | PCM.EEG ---
Electroencephalogram Report - Electroencephalogram Report Procedure Date: 08/01/18 Medication: Keppra, Acyclovir, Cefriaxone Interpretation: Technical Information: This was a 16-channel EEG, 1-channel EKG routine EEG performed using [employer] equipment. Electrodes were applied using the 10/20 international placement system. Start; 20;35 End; 21;25 Total 45 min Clinical Information: Alter mental status EEG Details During the entire study was not discernible awake EEG architecture, the tracing showed a burst suppression/attenuation pattern with periods of diffuse bilateral attenuation with frequencies in the 4 to 5 Hz., there was no reactivity of the EEG, intermixed with bursts of mid amplitude mainly 5 to 6 Hz activity. Drowsiness not seen, sleep not seen. Hyperventilation was not performed. Photic stimulation was not performed. Interictal activity; none Focal abnormality; none Impression: This is an abnormal EEG record that demonstrate the presence of severe non specific diffuse disturbance of cortical activity, this is keeping with a diffuse abbasi matter dysfunction, these findings re not specific. These type of EEG is usually seen in toxic metabolic encephalopathies , hypoxic-ischemic brain injury among others, clinical correlation is recommended. The EEG look similar to the previous video EEG study of 07/29, 07/30. No seizures. Patient is not in status epilepticus.
--- NOTE | 2018-08-02 12:32 | PCM.PROC ---
Procedures Attestation:: I certify that I have explained the specified Operation(s) or Procedure(s), risks, benefits and reasonable alternatives to the Patient and/or other person responsible. The opportunity was given to ask questions and all questions answered - Intubation Sedative: Other (Propofol 70 mg IVP) Laryngoscope: Nathan (Mac #3) ET Tube Size: 7.5 ET Tube Secured at Depth: 23 ET Tube Secured Locarion: Lips ET Tube Placement Confirmation: Visualized Passing Through Cords, Breath Sounds Equal Bilaterally, No Breath Sounds Over Epigastrum, Confirmation w/Capnometry Patient Tolerated Procedure: Well Procedure Immediate Complications: None Additional comments: CXR shows satisfactory placement of distal ETT tip above monster.
--- NOTE | 2018-08-02 14:26 | CP.CCUPN ---
CCU Subjective - Physician Review Subjective (Free Text): Essentially obtunded since admission 5 days ago, orally intubated after becoming hypoxemic with bloody secretions noted orally and audible coarse upper airway rhonchi. No improvement post intubation. No time for pre-intubation ABG. Mild hypercarbia noted several days ago, but acidosis most likely 2 metabolic etiology from worsening renal failure. Positive fluid balance daily noted since admission, with periods of oliguria. Now, only minimally withdraws and moves LUE, otherwise flaccid on R side. No observed recurrent seizure activity, no documented further hypoglycemic episodes. Afebrile, no fever spikes sine admission day. HR and SBPs have been relatively stable, otherwise in A flutter with controlled, variable VR. Low SPO2 noted today in the 80s during MRI Study. Other vitals and I/O's reviewed. ROS: No other pertinent negs or positives on system review obtainable due to coma PMSFH: All other Nursing and physician documentation reviewed to date; no new pertinent info noted relevant to current medical problems. EXAM- HEENT: no icterus, no gaze preference, 3-4 mm and sluggish minimal reactivity noted, no nystagmus NECK: no JVD visible, supple, carotids equal upstroke bilat/no bruit, R IJV central line intact. CHEST: decreased BS at the bases, no wheezes audible HEART: irregular, distant, S1S2, no rubs ABD: soft, obese, no distension, no focal tenderness, no tympany, no guarding, no organomegaly, BS hypoactive. EXT: + LE edema, no mottling; no calf tenderness or palpable cords, distal pulses intact and symmetrical, no cyanosis, no mottling. NEURO: R sided hemiplegia, minimal tone LUE more than LLE. SKIN: no rashes, warm and dry LABS: WBC= 13.0 HGB= 10.2 PLTs= 124K INR 2.1 yesterday ABG: none since Jul 30 Na= 142 K= 4.4 CL= 102 HCO3= 23 BUN/Cr= 69/7.5 BS= 148 CPK down to 647 on Jul 31. AST/ ALT decreased to 1644/2497, Alk Phos = 139 HEP ABC Panel = negative PCT on Jul 31 = 39.62 CXR; (my interp) ETT position OK above monster, increased R worse than L scattered bilat infiltrates. EKG: Jul 30 study: (my interp)- A flutter 74/min ith Flat / Inverted Ts inferiorly. ECHO Jul 30: Normal EF, Enlarged LA and RA, Moderate AR, moderate TR. No intracardiac thrombi. IMPRESSION / MAJOR PROBLEMS NOW: 1. Acute Hypoxemic Resp Failure 2 Aspiration PNA 2. Possible Anoxic Encephalopathy 2 unclear Seizure event (hypoglycemic) and prolonged down time (EMS reports 25 minutes, but may have been longer as in not seen till next morning according to sons accounts of events, as he lives with her); or prolonged post-ictal state versus other occult [employer] injury / infection / subacute CVA. 3. Superimposed Metabolic Encephalopathy from Acute Renal Failure 4. DM II PLAN: 1. Check ABG, sputum Cx, so far no allergic reaction to Rocephin, will add empiric Clindamycin to cover for new Aspiration Pna; continue Acyclovir or as directed by ID. +Morel-sinusitis as seen on MRI Brain. 2. Neurochecks, seizure precautions, HPB elevation, liberal glucose control for now to avoid hypoglycemia. 3. Check repeat coags, hold LMWH. 4. Access for any improvement in neuro-mental status after HD. First HD today. 5. Nepro feeds with water flushes. 6. No Advance Directives noted. Time spent with this patient did not overlap with any other provider's medical or critical care time. Additionally the code selected for the services rendered in this note includes the time spent: talking to the patients family, associated physicians and reviewing hospital data/results not listed here which extended to a total of 40 minutes.
--- NOTE | 2018-08-02 14:43 | CP.PCM.PN ---
Subjective - Date & Time of Evaluation Date of Evaluation: 08/02/18 Time of Evaluation: 08:00 - Subjective Subjective: obtunded in ICU- now intubated on HD MRI pending LP pending still empiric IV rx in progress Objective - Vital Signs/Intake and Output Vital Signs (last 24 hours): Temp Pulse Resp BP Pulse Ox 98.6 F 82 14 147/76 100 08/02/18 12:00 08/02/18 13:51 08/02/18 13:51 08/02/18 13:51 08/02/18 13:51 Intake and Output: 08/02/18 08/02/18 06:59 18:59 Intake Total 1205 950 Output Total 350 300 Balance 855 650 - Medications Medications: Current Medications Albuterol/Ipratropium (Duoneb 3 Mg/0.5 Mg (3 Ml) Ud) 3 ml INH RQ6 [place] Calcium Acetate (Phoslo) 667 mg PO TID [place] Last Admin: 08/02/18 12:33 Dose: 667 mg Levetiracetam 500 mg/ Sodium (Chloride) 105 mls @ 210 mls/hr IVPB Q12 [place] Last Admin: 08/02/18 10:33 Dose: 210 mls/hr Acyclovir 600 mg/ Sodium (Chloride) 100 mls @ 100 mls/hr IV Q24H [place]; Protocol Last Admin: 08/01/18 16:46 Dose: 100 mls/hr Ceftriaxone Sodium 2 gm/ (Sodium Chloride) 100 mls @ 100 mls/hr IVPB DAILY [place]; Protocol Last Admin: 08/02/18 10:34 Dose: 100 mls/hr Clindamycin Phosphate (Cleocin) 600 mg in 50 mls @ 50 mls/hr IVPB Q8 [place]; Protocol - Labs Labs: 08/02/18 06:31 08/02/18 06:31 PT 24.2 Seconds (9.8-13.1) H 08/01/18 04:35 INR 2.1 08/01/18 04:35 APTT 44.5 Seconds (25.6-37.1) H 07/29/18 14:50 - Constitutional Appears: Confused, Chronically Ill - Head Exam Head Exam: NORMOCEPHALIC - Eye Exam Eye Exam: absent: Scleral icterus - ENT Exam ENT Exam: Mucous Membranes Dry - Neck Exam Neck Exam: absent: Lymphadenopathy - Respiratory Exam Respiratory Exam: Decreased Breath Sounds - Cardiovascular Exam Cardiovascular Exam: REGULAR RHYTHM - GI/Abdominal Exam GI & Abdominal Exam: Distended, Soft - Rectal Exam Rectal Exam: Deferred - Exam Exam: NORMAL INSPECTION - Extremities Exam Extremities Exam: Pedal Edema - Back Exam Back Exam: absent: CVA tenderness (L), CVA tenderness (R) - Neurological Exam Neurological Exam: Altered - Psychiatric Exam Psychiatric exam: Depressed - Skin Skin Exam: Dry Assessment and Plan (1) Sepsis Status: Acute (2) Change in mental state Status: Acute (3) History of CVA with residual deficit Status: Acute (4) Diabetes 1.5, managed as type 2 Status: Chronic (5) History of CVA (cerebrovascular accident) Status: Chronic (6) NSTEMI (non-ST elevated myocardial infarction) Status: Acute (7) JORGE A (acute kidney injury) Status: Acute - Assessment and Plan (Free Text) Assessment: 58 yo female with Hx of HTN Obesity CVA with right weakness, CAD s/p CABG Asthma was admitted via ER with altered mental status which did not respond to Narcan and Glucose infusion by EMS admitted with fever AMS and NSTEMI now has JORGE A and in need of HD work up for stroke, infection in progress all cultures/ serologies neg thus far MRI just done - LP to follow Patient was started on empiric IV antibiotics to cover for possible FLASH DEVELOPER infection pending cultures and LP - all cultures neg thus far prognosis poor from outset
--- NOTE | 2018-08-02 14:45 | CP.PCM.PCO ---
Physician Communication Note - Physician Communication Note Physician Communication Note: procalcitonin 36 suggest to cont IV antibiotics
[2018-08-02] MEDS ORDERED: cefTRIAXone 2,000 MG in PED IV SYRINGE 1 SYR IVPB SCH (15:00)
[2018-08-02 16:30] LABS: INR 1.7; PROTHROMBIN TIME 19.3 Seconds (9.8-13.1)
[2018-08-02 16:32] LABS: PARTIAL THROMBOPLASTIN TIME 42.6 Seconds (25.6-37.1)
[2018-08-02] MEDS: Clindamycin 600mg/50ml D5W 600 MG/50 ML VIAL IVPB SCH (16:54)
[2018-08-02 18:52] LABS: ABG ALLEN TEST YES
[2018-08-02 19:00] LABS: ARTERIAL BLOOD GAS HCO3 23.9 mmol/L (21-28); ARTERIAL BLOOD GAS HEMOGLOBIN 10.9 g/dL (11.7-17.4); ARTERIAL BLOOD GAS O2 CAPACITY 15.2 mL/dL (16-24); ARTERIAL BLOOD GAS O2 CONTENT 15.2 ML/dL (15-23); ARTERIAL BLOOD GAS O2 SAT 99.9 % (95-98); ARTERIAL BLOOD GAS PCO2 40 mm/Hg (35-45); ARTERIAL BLOOD GAS PH 7.38 (7.35-7.45); ARTERIAL BLOOD GAS PO2 159 mm/Hg (80-100); ARTERIAL BLOOD GAS TCO2 24.9 mmol/L (22-28)
[2018-08-02] MEDS: Albuterol-Ipratrop 3 mg / 0.5 (3 ml) UD INH SCH (19:38)
[2018-08-03] MEDS: Clindamycin 600mg/50ml D5W 600 MG/50 ML VIAL IVPB SCH ×3 (00:25→18:31)
[2018-08-03] MEDS: Albuterol-Ipratrop 3 mg / 0.5 (3 ml) UD INH SCH ×4 (03:25→19:09)
[2018-08-03] MEDS: cefTRIAXone 2 GM in Sodium Chloride 0.9% 100 ML IVPB SCH ×2 (04:03→15:59)
[2018-08-03 05:30] LABS: HEMOGLOBIN 10.1 g/dL (12.0-16.0); MEAN CELL VOLUME 75.6 fl (81.0-99.0); MEAN CORPUSCULAR HEMOGLOBIN 24.2 pg (27.0-31.0); RBC 4.16 Mil/uL (3.80-5.20); RED CELL DISTRIBUTION WIDTH 20.4 % (11.5-14.5); WHITE BLOOD COUNT 13.4 K/uL (4.8-10.8)
[2018-08-03 05:39] LABS: CALCIUM 8.1 mg/dL (8.4-10.2)
[2018-08-03 05:59] LABS: ABG ALLEN TEST YES; ARTERIAL BLOOD GAS HCO3 24.2 mmol/L (21-28); ARTERIAL BLOOD GAS HEMOGLOBIN 10.5 g/dL (11.7-17.4); ARTERIAL BLOOD GAS O2 CAPACITY 14.6 mL/dL (16-24); ARTERIAL BLOOD GAS O2 CONTENT 14.6 ML/dL (15-23); ARTERIAL BLOOD GAS O2 SAT 99.8 % (95-98); ARTERIAL BLOOD GAS PCO2 42 mm/Hg (35-45); ARTERIAL BLOOD GAS PH 7.37 (7.35-7.45); ARTERIAL BLOOD GAS PO2 143 mm/Hg (80-100); ARTERIAL BLOOD GAS TCO2 25.6 mmol/L (22-28)
[2018-08-03] MEDS: levETIRAcetam 500 MG in Sodium Chloride 0.9% 100 ML IVPB SCH ×2 (09:31→20:50)
--- NOTE | 2018-08-03 09:47 | RAD ---
Date of service: 08/03/2018 HISTORY: intubated COMPARISON: 08/02/2018. FINDINGS: The endotracheal tube is stable in position and terminates in the mid trachea. The right IJV line terminates at the cavoatrial junction. The nasogastric tube is coiled in the stomach. LUNGS: There is interval development of airspace disease in the right lower lobe. There is interval mild improvement in pulmonary venous congestion with residual mild pulmonary venous congestion. PLEURA: Small pleural effusions, larger on the right. No pneumothorax. CARDIOVASCULAR: Persistent moderate cardiomegaly. Status post prosthetic mitral valve. No aortic atherosclerotic calcifications present. OSSEOUS STRUCTURES: Within normal limits for the patient's age. VISUALIZED UPPER ABDOMEN: Normal. OTHER FINDINGS: None. IMPRESSION: 1. Interval development of right lower lobe airspace disease likely developing pneumonia. 2. Interval mild improvement in pulmonary venous congestion. Stable moderate cardiomegaly and pleural effusions, larger on the right.
[2018-08-03] MEDS ORDERED: Sodium Chloride 3% for Inhalation 4 ML VIAL.NEB IH PRN (11:00)
--- NOTE | 2018-08-03 11:29 | CP.PCM.PN ---
Subjective - Date & Time of Evaluation Date of Evaluation: 08/03/18 Time of Evaluation: 11:29 - Subjective Subjective: Patient obtunded and intubated Daughter at the bedside Objective - Vital Signs/Intake and Output Vital Signs (last 24 hours): Temp Pulse Resp BP Pulse Ox 99.7 F H 89 18 176/81 H 100 08/03/18 08:00 08/03/18 10:00 08/03/18 10:00 08/03/18 08:00 08/03/18 10:00 Intake and Output: 08/03/18 08/03/18 06:59 18:59 Intake Total 1605 250 Output Total 200 Balance 1405 250 - Medications Medications: Current Medications Albuterol/Ipratropium (Duoneb 3 Mg/0.5 Mg (3 Ml) Ud) 3 ml INH RQ6 [place] Last Admin: 08/03/18 07:26 Dose: 3 ml Calcium Acetate (Phoslo) 667 mg PO TID [place] Last Admin: 08/03/18 10:19 Dose: 667 mg Levetiracetam 500 mg/ Sodium (Chloride) 105 mls @ 210 mls/hr IVPB Q12 [place] Last Admin: 08/03/18 09:31 Dose: 210 mls/hr Acyclovir 600 mg/ Sodium (Chloride) 100 mls @ 100 mls/hr IV Q24H [place]; Protocol Last Admin: 08/02/18 16:58 Dose: 100 mls/hr Clindamycin Phosphate (Cleocin) 600 mg in 50 mls @ 50 mls/hr IVPB Q8 [place]; Protocol Last Admin: 08/03/18 10:25 Dose: 50 mls/hr Ceftriaxone Sodium 2 gm/ (Sodium Chloride) 100 mls @ 0 mls/hr IVPB Q12H [place]; Protocol Last Admin: 08/03/18 04:03 Dose: 100 mls/hr - Labs Labs: 08/03/18 04:50 08/03/18 04:50 PT 19.3 Seconds (9.8-13.1) H 08/02/18 16:15 INR 1.7 08/02/18 16:15 APTT 42.6 Seconds (25.6-37.1) H 08/02/18 16:15 - Constitutional Appears: No Acute Distress - Eye Exam Eye Exam: Conjunctival injection - ENT Exam ENT Exam: Mucous Membranes Moist - Neck Exam Neck Exam: absent: Lymphadenopathy - Cardiovascular Exam Cardiovascular Exam: absent: Gallop, JVD, Rubs - GI/Abdominal Exam GI & Abdominal Exam: Normal Bowel Sounds. absent: Soft - Extremities Exam Extremities Exam: absent: Calf Tenderness - Back Exam Back Exam: absent: CVA tenderness (L), CVA tenderness (R) - Neurological Exam Neurological Exam: Altered - Skin Skin Exam: absent: Cyanosis Assessment and Plan (1) JORGE A (acute kidney injury) Assessment & Plan: Altered mental status Respiratory failure/intubated Acute renal failure/acute kidney injury related to multifactorial including sepsis? Diabetes mellitus and history of hypertension history of CVA. Patient remained obtunded with encephalopathy as noted by neurology hyperurecemia Hyperphosphatemia Recommendation Scheduled for hemodialysis for tomorrow As per intensive care unit team with the other management and antibiotics Status: Acute (2) Elevated liver enzymes Status: Acute (3) Elevated troponin level Status: Acute (4) Leukocytosis Status: Acute (5) Sepsis Status: Acute
--- NOTE | 2018-08-03 12:45 | CP.PCM.PN ---
Subjective - Date & Time of Evaluation Date of Evaluation: 08/03/18 Time of Evaluation: 11:20 - Subjective Subjective: Neuro Follow-Up Note: Mrs. Landis was evaluated this morning in the ICU. Daughter and son present. She remains intubated, off sedation. ROS unobtainable from pt 2/2 her condition. Chart reviewed; discussed with primary RN. Family concerns and questions addressed. Objective - Vital Signs/Intake and Output Vital Signs (last 24 hours): Temp Pulse Resp BP Pulse Ox 99.7 F H 89 18 176/81 H 100 08/03/18 08:00 08/03/18 10:00 08/03/18 10:00 08/03/18 08:00 08/03/18 10:00 Intake and Output: 08/03/18 08/03/18 06:59 18:59 Intake Total 1605 250 Output Total 200 Balance 1405 250 - Medications Medications: Current Medications Albuterol/Ipratropium (Duoneb 3 Mg/0.5 Mg (3 Ml) Ud) 3 ml INH RQ6 [place] Last Admin: 08/03/18 07:26 Dose: 3 ml Calcium Acetate (Phoslo) 667 mg PO TID [place] Last Admin: 08/03/18 10:19 Dose: 667 mg Levetiracetam 500 mg/ Sodium (Chloride) 105 mls @ 210 mls/hr IVPB Q12 [place] Last Admin: 08/03/18 09:31 Dose: 210 mls/hr Acyclovir 600 mg/ Sodium (Chloride) 100 mls @ 100 mls/hr IV Q24H [place]; Protocol Last Admin: 08/02/18 16:58 Dose: 100 mls/hr Clindamycin Phosphate (Cleocin) 600 mg in 50 mls @ 50 mls/hr IVPB Q8 [place]; Protocol Last Admin: 08/03/18 10:25 Dose: 50 mls/hr Ceftriaxone Sodium 2 gm/ (Sodium Chloride) 100 mls @ 0 mls/hr IVPB Q12H [place]; Protocol Last Admin: 08/03/18 04:03 Dose: 100 mls/hr - Labs Labs: 08/03/18 04:50 08/03/18 04:50 PT 19.3 Seconds (9.8-13.1) H 08/02/18 16:15 INR 1.7 08/02/18 16:15 APTT 42.6 Seconds (25.6-37.1) H 08/02/18 16:15 - Constitutional Appears: Other (intubated, off sedation; just barely opens eyes to sternal rub; no other movements to sternal rub) - Head Exam Head Exam: NORMAL INSPECTION, NORMOCEPHALIC - Eye Exam Eye Exam: PERRL Pupil Exam: NORMAL ACCOMODATION Additional comments: Pupils both reactive and equal, approx 4 mm today + dolls eyes; + corneals Appears that pt just barely opens eyes during sternal rub and when name called, same as yesterday - ENT Exam ENT Exam: Mucous Membranes Moist Additional comments: intubated - Neck Exam Neck Exam: Normal Inspection - Respiratory Exam Respiratory Exam: absent: NORMAL BREATHING PATTERN (intubated) - Cardiovascular Exam Cardiovascular Exam: REGULAR RHYTHM - Exam Additional comments: escudero cath in place - Extremities Exam Extremities Exam: absent: Full ROM Additional comments: Extremities flaccid; fall immediately to the bed when raised. No purposeful or non-purposeful movements noted. - Neurological Exam Neurological Exam: Altered Neuro motor strength exam: Left Upper Extremity: 0, Right Upper Extremity: 0, Left Lower Extremity: 0, Right Lower Extremity: 0 Additional comments: Pt is still intubated, off sedation; does not follow commands. Pupils equal and reactive; approx 4 mm b/l; + corneals, + dolls eyes Pt just barely opens eyes to sternal rub and when name called, same as yesterday. No extremity movements to sternal rub No purposeful or non-purposeful movements Extremities fall immediately to the bed when raised Unable to assess sensation Toes downgoing b/l Difficulty in eliciting patellar reflexes - Psychiatric Exam Additional comments: intubated; off sedation; does not follow commands - Skin Skin Exam: Normal Color Assessment and Plan (1) Toxic metabolic encephalopathy Assessment & Plan: Imaging reviewed: -Brain MRI (08/02/18): 1. No acute intracranial abnormality. 2. Cystic encephalomalacia and gliosis in the left pickard radiata and basal ganglia, sequela of remote MCA territory infarction. 3. Mild chronic microangiopathic changes and mild age-related global parenchymal volume loss. 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 4. Pansinusitis, with a complicated retention cyst/polyp in the right maxillary sinus. Fluid in the sphenoid sinus may represent acute sinusitis in the appropriate clinical setting. Bilateral mastoid effusions. -EEG (repeat; 08/01/18): This is an abnormal EEG record that demonstrate the presence of severe non specific diffuse disturbance of cortical activity, this is keeping with a diffuse abbasi matter dysfunction, these findings re not specific. These type of EEG is usually seen in toxic metabolic encephalopathies , hypoxic-ischemic brain injury among others, clinical correlation is recommended. The EEG look similar to the previous video EEG study of 07/29, 07/30. No seizures. Patient is not in status epilepticus. -CT Head (07/30/18): No acute intracranial abnormalities. No significant findings to account for the clinical presentation. No significant interval change compared to the prior examination(s). -CT Head (07/28/18): No acute intracranial abnormalities. No significant findings to account for the clinical presentation. Extensive postoperative changes described above. -EEG (07/30/18): shows burst suppression per Dr. Novak. -ECHO (07/30/18) done, results pending. -MRA Head/Neck unable to be done at this time. -Carotid and vertebral U/S ordered yesterday and is pending--will f/u with results once completed. -We still recommend for Cardiology to do a ANNETTE to r/o septic endocarditis. -ID recommending LP--INR should be below 1.7 to decrease risk of bleeding. May re-address this if further indicated. -Continue current medications and treatment of other acute medical issues. -Continue ICU management. -Notify neuro team of any acute changes to pt's condition. Diane Linder DNP, EDUCATION GENERAL MANAGER Case discussed with Dr. Santiago Status: Acute
--- NOTE | 2018-08-03 14:00 | VASCULAR ---
Ultrasound and fluoroscopically guided insertion of right internal jugular vein non tunneled dialysis catheter History: 58 -year-old female requiring non tunneled dialysis catheter for acute renal failure. Comparison: None. Anesthesia: Local lidocaine. Procedure findings: The procedure was explained to the patient with relative risks and benefits. The patient understood the procedure and provided written informed consent. The patient was positioned supine on the angiographic table. Continuous physiologic monitoring was provided by the interventional radiology nurse. The right neck region was prepped and draped in the usual sterile technique. Under direct ultrasound guidance, the right internal jugular vein was accessed using a 21 gauge micropuncture needle. A 0.018 inch wire was introduced through the needle into the SVC. The micropuncture needle was then exchanged for a 4 Kittitian transition catheter. A stiff guidewire was introduced through the transition catheter into the IVC. The transition catheter was then removed and serial fascial dilators were introduced into the right neck extending up to the venotomy site. Subsequently, a 14 Kittitian, 15 centimeter dual lumen non tunneled dialysis catheter was introduced into the right internal jugular vein under fluoroscopic guidance. The catheter flushed with normal saline and heparin. The patient tolerated the procedure well without any incident. The patient was transferred from the interventional Radiology department in stable condition. Impression: Successful introduction of a right internal jugular vein non tunneled dialysis catheter.
--- NOTE | 2018-08-03 14:20 | CP.CCUPN ---
CCU Subjective - Physician Review Subjective (Free Text): Remains obtunded since admission 6 days ago, orally intubated yesterday after becoming hypoxemic with bloody secretions noted orally and audible coarse upper airway rhonchi. Positive fluid balance daily noted since admission, with periods of oliguria. First HD yesterday, UF 1.5L. No observed recurrent seizure activity, no documented further hypoglycemic episodes. Afebrile, no fever spikes sine admission day. HR and SBPs have been relatively stable, otherwise in A flutter with controlled, variable VR. Breathing 22 on AC 14, 450 ml, 50% oxygen and PEEP 5, SPo2 100%. Other vitals and I/O's reviewed. ROS: No other pertinent negs or positives on 10+ system review obtainable due to coma PMSFH: All other Nursing and physician documentation reviewed to date; no new pertinent info noted relevant to current medical problems. EXAM- HEENT: no icterus, no gaze preference, 3-4 mm and sluggish minimal reactivity noted, no nystagmus NECK: no JVD visible, supple, carotids equal upstroke bilat/no bruit, R IJV central line intact. CHEST: decreased BS at the bases, no wheezes audible HEART: irregular, distant, S1S2, no rubs ABD: soft, obese, no distension, no focal tenderness, no tympany, no guarding, no organomegaly, BS hypoactive. EXT: + LE edema, no mottling; no calf tenderness or palpable cords, distal pulses intact and symmetrical, no cyanosis, no mottling. NEURO: R sided hemiplegia, loss of tone LUE and LLE today, essentially flaccid x 4. GCS= 4T ( E2 V1 M1) SKIN: no rashes, warm and dry LABS: WBC= 13.4 HGB= 10.1 PLTs= 102K INR = 1.7 with elevated PTT 7.37/42/143 Na= 142 K= 3.7 CL= 100 HCO3= 26 BUN/Cr= 57/3.9 BS= 100 CXR; (my interp) ETT position OK above monster, increased R worse than L scattered bilat infiltrates, progressed to R lower Lobar atelectasis. ECHO Jul 30: Normal EF, Enlarged LA and RA, Moderate AR, moderate TR. No intracardiac thrombi. IMPRESSION / MAJOR PROBLEMS NOW: 1. Acute Hypoxemic Resp Failure 2 Aspiration PNA 2. Possible Anoxic Encephalopathy 2 unclear Seizure event (hypoglycemic) and prolonged down time (EMS reports 25 minutes, but may have been longer as in not seen till next morning according to sons accounts of events, as he lives with her); or prolonged post-ictal state versus other occult DRY CLEANER HAND injury / infection / subacute CVA. 3. Superimposed Metabolic Encephalopathy from Acute Renal Failure 4. DM II PLAN: 1. Directional Suctioning / Pulm toilet especially to R lung / RLL. If no improvement, will need FOB/BAL, get Pulm consultation. . No improvement in mental status post intubation. Mild hypercarbia noted several days ago, but aci dosis most likely 2 metabolic etiology from worsening renal failure. 2. Sputum Cx re-ordered again today. So far no allergic reaction to Rocephin, will add empiric Clindamycin to cover for new Aspiration Pna; continue Acyclovir or as directed by ID. +Morel-sinusitis as seen on MRI Brain. After review of consultants previous Notes, LP looking for meningitis is not a consideration at this time. 3. Neurochecks, seizure precautions, HPB elevation, liberal glucose control for now to avoid hypoglycemia. No improvement in neuro-mental status after first HD yesterday. 4. Checked repeat coags (elevated), platelets lower, too; hold LMWH. 5. Nepro feeds with water flushes. 6. No Advance Directives noted. Time spent with this patient did not overlap with any other provider's medical o r critical care time. Additionally the code selected for the services rendered in this note includes the time spent: talking to the patients family, associated physicians and reviewing hospital data/results not listed here which extended to a total of 35 minutes of critical care.
[2018-08-03] MEDS: Insulin Regular 100 units/ml SC SCH ×2 (17:17→22:59)
--- NOTE | 2018-08-03 18:05 | CP.PCM.PN ---
Subjective - Date & Time of Evaluation Date of Evaluation: 08/03/18 Time of Evaluation: 10:00 - Subjective Subjective: patient seen and examined at bedside. Spoke with daughter Interim events noted obtunded/intubated available diagnostic data reviewed Review of Systems unable to obtain due to status Objective Vital Signs Stable - Constitutional Appears: Ill appearing Head Exam: NORMAL INSPECTION Respiratory Exam: Intubated, decreased breath sounds Cardiovascular Exam: +S1, +S2 GI & Abdominal Exam: Soft Neurological Exam: Alert, Awake Psychiatric exam: Normal Affect, Normal Mood Skin Exam: Normal Color, Warm Assessment and Plan monitor vitals monitor labs Cont meds Cont tx ID, Cardio, Neuro, ICU, Renal, Pulm following consultants appreciated input prognosis poor rest of plan as ordered Assessment and Plan (1) Respiratory failure Status: Acute (2) Sepsis Status: Acute (3) JORGE A (acute kidney injury) Status: Acute
--- NOTE | 2018-08-03 20:13 | CON ---
DATE: 08/03/2018 HISTORY OF PRESENT ILLNESS: Ms. Landis is a 58-year-old female who was referred for pulmonary evaluation following endotracheal intubation and ventilation because of hypoxic respiratory failure. She is only responsive to deep painful stimuli and cannot give any history, but history obtained from medical records indicates the patient was intubated because of hypoxemia and bloody secretion. She had these done about six days prior to this consultation and has not clinically improved. She is unable to give any history. Her sister is at bedside and is also unable to contribute most of the history. The patient is only responsive to deep painful stimuli. PHYSICAL EXAMINATION: VITAL SIGNS: Reviewed. The patient has O2 saturation of 100% on present ventilator settings. GENERAL: She is diaphoretic. HEENT: Pupils are sluggish. ET tube is in good position. NECK: Shows no abnormalities. LUNGS: Bilateral coarse rales. No wheezing. HEART: Tachycardic, irregular. ABDOMEN: Soft. No distention. No organomegaly appreciated. EXTREMITIES: Has pedal edema. CENTRAL NERVOUS SYSTEM: Exam could not be performed adequately because the patient is obtunded. LABORATORY DATA: WBC 13,000, hemoglobin 10, platelet count 124,000. Sodium 142, potassium 4.4, BUN 69, creatinine 7.5, serum glucose 148. Chest x-ray: ET tube is in good position. There is increased right pulmonary infiltrates. Scattered bilateral infiltrates noted. ABG: The pH of 7.37, pCO2 of 42, pO2 of 143. This is on 50% FiO2 on access control. IMPRESSION: Hypoxic respiratory failure with worsening pulmonary infiltrates, right greater than left, sepsis, renal insufficiency (multiorgan failure). PLAN: The plan is to continue therapy as ordered with IV antibiotics and ventilator care. Obtain sputum for Gram stain and cultures. We will continue to treat appropriately and monitor labs. Prognosis is extremely guarded. We will continue to follow with you. Saad Grier MD
[2018-08-04] MEDS: Clindamycin 600mg/50ml D5W 600 MG/50 ML VIAL IVPB SCH ×3 (00:11→16:13)
[2018-08-04] MEDS: Albuterol-Ipratrop 3 mg / 0.5 (3 ml) UD INH SCH ×4 (02:14→19:05)
[2018-08-04] MEDS: cefTRIAXone 2 GM in Sodium Chloride 0.9% 100 ML IVPB SCH ×2 (04:06→15:50)
[2018-08-04 05:18] LABS: ABG ALLEN TEST YES; ARTERIAL BLOOD GAS HCO3 25.5 mmol/L (21-28); ARTERIAL BLOOD GAS HEMOGLOBIN 10.8 g/dL (11.7-17.4); ARTERIAL BLOOD GAS O2 CAPACITY 15.1 mL/dL (16-24); ARTERIAL BLOOD GAS O2 CONTENT 15.2 ML/dL (15-23); ARTERIAL BLOOD GAS O2 SAT 100.4 % (95-98); ARTERIAL BLOOD GAS PCO2 34 mm/Hg (35-45); ARTERIAL BLOOD GAS PH 7.46 (7.35-7.45); ARTERIAL BLOOD GAS PO2 166 mm/Hg (80-100); ARTERIAL BLOOD GAS TCO2 25.2 mmol/L (22-28)
[2018-08-04 06:34] LABS: HEMOGLOBIN 10.1 g/dL (12.0-16.0); MEAN CELL VOLUME 74.9 fl (81.0-99.0); RBC 4.19 Mil/uL (3.80-5.20); RED CELL DISTRIBUTION WIDTH 19.7 % (11.5-14.5); WHITE BLOOD COUNT 19.2 K/uL (4.8-10.8)
[2018-08-04 06:50] LABS: CALCIUM 8.9 mg/dL (8.4-10.2)
[2018-08-04] MEDS: Insulin Regular 100 units/ml SC SCH ×4 (06:54→23:00)
[2018-08-04] MEDS ORDERED: Acetaminophen 160 mg/5 ml UD PO PRN (09:31)
--- NOTE | 2018-08-04 10:04 | RAD ---
Date of service: 08/04/2018 PROCEDURE: CHEST RADIOGRAPH, 1 VIEW HISTORY: Intubated COMPARISON: 08/03/2018 FINDINGS: LUNGS: Patchy opacity at right base. Possible pneumonia. Improved compared to prior examination. No other abnormal opacity elsewhere. PLEURA: Probable small right pleural effusion. No pneumothorax. Minimal blunting left costophrenic angle may reflect very small pleural effusion or chronic pleural thickening. CARDIOVASCULAR: No aortic atherosclerotic calcification present. Normal heart size. Status post mitral valve replacement. Sternotomy wires noted ET tube, NG tube and right IJ central venous catheter are unchanged. Right tunneled central venous dialysis catheter unchanged. OSSEOUS STRUCTURES: No significant abnormalities. VISUALIZED UPPER ABDOMEN: Normal. OTHER FINDINGS: None. IMPRESSION: Small right pleural effusion. Opacity at right base may reflect pneumonia. Lines and tubes unchanged.
[2018-08-04 10:43] LABS: INR 1.4; PROTHROMBIN TIME 16.2 Seconds (9.8-13.1)
[2018-08-04 10:46] LABS: PARTIAL THROMBOPLASTIN TIME 35.6 Seconds (25.6-37.1)
--- NOTE | 2018-08-04 11:21 | CP.PCM.PN ---
Subjective - Date & Time of Evaluation Date of Evaluation: 08/04/18 Time of Evaluation: 11:21 - Subjective Subjective: Dialysis note She was seen on hemodialysis Vital signs stable Discussed with the dialysis nurse Patient obtunded and intubated Objective - Vital Signs/Intake and Output Vital Signs (last 24 hours): Temp Pulse Resp BP Pulse Ox 100.6 F H 88 22 153/85 H 100 08/04/18 10:00 08/04/18 10:00 08/04/18 10:00 08/04/18 10:00 08/04/18 10:00 Intake and Output: 08/04/18 08/04/18 06:59 18:59 Intake Total 1353 188 Output Total 550 Balance 803 188 - Medications Medications: Current Medications Acetaminophen (Tylenol 650mg/20.3ml Solution Ud) 650 mg PO Q6 PRN PRN Reason: Fever>100.4 F Albuterol/Ipratropium (Duoneb 3 Mg/0.5 Mg (3 Ml) Ud) 3 ml INH RQ6 [facility] Last Admin: 08/04/18 07:35 Dose: 3 ml Allopurinol (Zyloprim) 300 mg PO DAILY [place] Calcium Acetate (Phoslo) 667 mg PO TID [facility] Last Admin: 08/03/18 17:06 Dose: 667 mg Levetiracetam 500 mg/ Sodium (Chloride) 105 mls @ 210 mls/hr IVPB Q12 [facility] Last Admin: 08/03/18 20:50 Dose: 210 mls/hr Acyclovir 600 mg/ Sodium (Chloride) 100 mls @ 100 mls/hr IV Q24H [facility]; Protocol Last Admin: 08/03/18 17:19 Dose: 100 mls/hr Clindamycin Phosphate (Cleocin) 600 mg in 50 mls @ 50 mls/hr IVPB Q8 [facility]; Protocol Last Admin: 08/04/18 00:11 Dose: 50 mls/hr Ceftriaxone Sodium 2 gm/ (Sodium Chloride) 100 mls @ 0 mls/hr IVPB Q12H [facility]; Protocol Last Admin: 08/04/18 04:06 Dose: 100 mls/hr Insulin Human Regular (Humulin R) 0 units SC ACCU-CHECK [facility]; Protocol Last Admin: 08/04/18 11:14 Dose: 1 u - Labs Labs: 08/04/18 06:00 08/04/18 06:00 PT 16.2 Seconds (9.8-13.1) H 08/04/18 10:28 INR 1.4 08/04/18 10:28 APTT 35.6 Seconds (25.6-37.1) 08/04/18 10:28 - Constitutional Appears: No Acute Distress - Eye Exam Eye Exam: absent: Conjunctival injection - ENT Exam ENT Exam: Mucous Membranes Moist - Neck Exam Neck Exam: absent: Lymphadenopathy - Respiratory Exam Respiratory Exam: Rhonchi, NORMAL BREATHING PATTERN. absent: Chest Wall Tenderness, Rales - Cardiovascular Exam Cardiovascular Exam: absent: Gallop, JVD, Rubs - GI/Abdominal Exam GI & Abdominal Exam: Soft, Normal Bowel Sounds - Extremities Exam Extremities Exam: absent: Calf Tenderness - Back Exam Back Exam: absent: CVA tenderness (L), CVA tenderness (R) - Neurological Exam Neurological Exam: Altered - Psychiatric Exam Psychiatric exam: Flat Affect - Skin Skin Exam: absent: Cyanosis Assessment and Plan (1) JORGE A (acute kidney injury) Assessment & Plan: Altered mental status Respiratory failure/intubated Acute renal failure/acute kidney injury related to multifactorial including sepsis. Diabetes mellitus and history of hypertension history of CVA. Patient remained obtunded with encephalopathy hyperurecemia Hyperphosphatemia Shock liver Recommendation She was seen on hemodialysis Vital signs stable Discussed with the dialysis nurse with ultrafiltration of approximately 2000 cc as tolerated Sodium bath 138 Bicarbonate bath 34 Patient remain on respirator obtunded allopurinol for hyperuricemia Repeat CPK stat Myoglobin in the urine has not been done to repeat specimen again Stat spot urine for ratio of protein to creatinine If no clear etiology for the acute renal failure by early next week we will consider kidney biopsy Scheduled for more hemodialysis tomorrow Sepsis management as per ID and the primary team of ICU Status: Acute (2) Elevated liver enzymes Status: Acute (3) Elevated troponin level Status: Acute (4) Leukocytosis Status: Acute (5) Sepsis Status: Acute
[2018-08-04 11:34] LABS: ALB/GLOB RATIO 0.9 (1.0-2.1); ALBUMIN 3.8 g/dL (3.5-5.0); BILIRUBIN,DIRECT 0.6 mg/ml (0.0-0.4)
--- NOTE | 2018-08-04 11:41 | CP.PCM.PN ---
Subjective - Date & Time of Evaluation Date of Evaluation: 08/04/18 Time of Evaluation: 11:41 - Subjective Subjective: OPENS EYES DIALYSIS IN SESSION STILL FEBRILE INTUBATED AND BEING VENTILATED WILL CONTINUE CURRENT RX WILL FOLLOW Objective - Vital Signs/Intake and Output Vital Signs (last 24 hours): Temp Pulse Resp BP Pulse Ox 100.6 F H 88 22 153/85 H 100 08/04/18 10:00 08/04/18 10:00 08/04/18 10:00 08/04/18 10:00 08/04/18 10:00 Intake and Output: 08/04/18 08/04/18 06:59 18:59 Intake Total 1353 188 Output Total 550 Balance 803 188 - Medications Medications: Current Medications Acetaminophen (Tylenol 650mg/20.3ml Solution Ud) 650 mg PO Q6 PRN PRN Reason: Fever>100.4 F Albuterol/Ipratropium (Duoneb 3 Mg/0.5 Mg (3 Ml) Ud) 3 ml INH RQ6 [place] Last Admin: 08/04/18 07:35 Dose: 3 ml Allopurinol (Zyloprim) 300 mg PO DAILY [place] Calcium Acetate (Phoslo) 667 mg PO TID [facility] Last Admin: 08/03/18 17:06 Dose: 667 mg Levetiracetam 500 mg/ Sodium (Chloride) 105 mls @ 210 mls/hr IVPB Q12 [facility] Last Admin: 08/03/18 20:50 Dose: 210 mls/hr Acyclovir 600 mg/ Sodium (Chloride) 100 mls @ 100 mls/hr IV Q24H [facility]; Protocol Last Admin: 08/03/18 17:19 Dose: 100 mls/hr Clindamycin Phosphate (Cleocin) 600 mg in 50 mls @ 50 mls/hr IVPB Q8 [facility]; Protocol Last Admin: 08/04/18 00:11 Dose: 50 mls/hr Ceftriaxone Sodium 2 gm/ (Sodium Chloride) 100 mls @ 0 mls/hr IVPB Q12H [facility]; Protocol Last Admin: 08/04/18 04:06 Dose: 100 mls/hr Insulin Human Regular (Humulin R) 0 units SC ACCU-CHECK [facility]; Protocol Last Admin: 08/04/18 11:14 Dose: 1 u - Labs Labs: 08/04/18 06:00 08/04/18 06:00 PT 16.2 Seconds (9.8-13.1) H 08/04/18 10:28 INR 1.4 08/04/18 10:28 APTT 35.6 Seconds (25.6-37.1) 08/04/18 10:28
[2018-08-04 12:11] LABS: CREATININE, RANDOM URINE 52.4 mg/dL
[2018-08-04 12:16] LABS: ALB/GLOB RATIO 0.9 (1.0-2.1); ALBUMIN 3.3 g/dL (3.5-5.0); CALCIUM 8.9 mg/dL (8.4-10.2)
--- NOTE | 2018-08-04 12:31 | CP.CCUPN ---
CCU Subjective - Physician Review Subjective (Free Text): Remains obtunded since admission 6 days ago, orally intubated yesterday after becoming hypoxemic with bloody secretions noted orally and audible coarse upper airway rhonchi. Positive fluid balance daily noted since admission, with periods of oliguria. First HD yesterday, UF 1.5L. No observed recurrent seizure activity, no documented further hypoglycemic episodes. Afebrile, no fever spikes sine admission day. HR and SBPs have been relatively stable, otherwise in A flutter with controlled, variable VR. Breathing 22 on AC 14, 450 ml, 50% oxygen and PEEP 5, SPo2 100%. Other vitals and I/O's reviewed. ROS: No other pertinent negs or positives on 10+ system review obtainable due to coma PMSFH: All other Nursing and physician documentation reviewed to date; no new pertinent info noted relevant to current medical problems. EXAM- HEENT: no icterus, no gaze preference, 3-4 mm and sluggish minimal reactivity noted, no nystagmus NECK: no JVD visible, supple, carotids equal upstroke bilat/no bruit, R IJV central line intact. CHEST: decreased BS at the bases, no wheezes audible HEART: irregular, distant, S1S2, no rubs ABD: soft, obese, no distension, no focal tenderness, no tympany, no guarding, no organomegaly, BS hypoactive. EXT: + LE edema, no mottling; no calf tenderness or palpable cords, distal pulses intact and symmetrical, no cyanosis, no mottling. NEURO: R sided hemiplegia, loss of tone LUE and LLE today, essentially flaccid x 4. GCS= 4T ( E2 V1 M1) SKIN: no rashes, warm and dry LABS: WBC= 19.2 HGB= 10.1 PLTs= 123K INR = 1.4 with normal PTT 7.46/34/166 Na= 143 K= 3.5 CL= 102 HCO3= 24 BUN/Cr= 72/7.2 BS= 222 CXR; (my interp) ETT position OK above monster, increased R worse than L scattered bilat infiltrates, improved aeration RLL. ECHO Jul 30: Normal EF, Enlarged LA and RA, Moderate AR, moderate TR. No intracardiac thrombi. IMPRESSION / MAJOR PROBLEMS NOW: 1. Acute Hypoxemic Resp Failure 2 Aspiration PNA 2. 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 3. Superimposed Metabolic Encephalopathy from Acute Renal Failure 4. DM II PLAN: 1. Could decrease fiO2 to 40% today, expect goal of 1.5 to 2.0L UF removal today from HD. 2. Ongoing Directional Suctioning / Pulm toilet especially to R lung / RLL. If lobar atelectasis recurs, will need FOB/BAL, Pulm consultation on board. No improvement in mental status post intubation. Mild hypercarbia noted several days ago, but acidosis most likely 2 metabolic etiology from worsening renal failure. 3. Again, Sputum Cx re-ordered today. So far no allergic reaction to Rocephin, will add empiric Clindamycin to cover for new Aspiration Pna; continue Acyclovir or as directed by ID. +Morel-sinusitis as seen on MRI Brain. After review of consultants previous Notes, LP looking for meningitis is not a consideration at this time. 4. Neurochecks, seizure precautions, HPB elevation, liberal glucose control for now to avoid hypoglycemia. No improvement in neuro-mental status with HD. 5. Bloody, oliguric urine output noted, checked coags- not worse. Time spent with this patient did not overlap with any other provider's medical or critical care time. Additionally the code selected for the services rendered in this note includes the time spent: talking to the patients family, associated physicians and reviewing hospital data/results not listed here which extended to a total of 30 minutes of critical care.
[2018-08-04] MEDS: Acetaminophen 650mg/20.3ml solution UD PO PRN (13:06)
[2018-08-04] MEDS: levETIRAcetam 500 MG in Sodium Chloride 0.9% 100 ML IVPB SCH ×2 (13:06→20:19)
--- NOTE | 2018-08-04 13:50 | CP.PCM.PN ---
Subjective - Date & Time of Evaluation Date of Evaluation: 08/04/18 Time of Evaluation: 09:00 - Subjective Subjective: remains obtunded intubated not responding to painful stimuli and flaccid Objective - Vital Signs/Intake and Output Vital Signs (last 24 hours): Temp Pulse Resp BP Pulse Ox 100.9 F H 93 H 30 H 139/78 100 08/04/18 13:06 08/04/18 12:00 08/04/18 12:00 08/04/18 12:00 08/04/18 12:00 Intake and Output: 08/04/18 08/04/18 06:59 18:59 Intake Total 1353 282 Output Total 550 Balance 803 282 - Medications Medications: Current Medications Acetaminophen (Tylenol 650mg/20.3ml Solution Ud) 650 mg PO Q6 PRN PRN Reason: Fever>100.4 F Last Admin: 08/04/18 13:06 Dose: 650 mg Albuterol/Ipratropium (Duoneb 3 Mg/0.5 Mg (3 Ml) Ud) 3 ml INH RQ6 [place] Last Admin: 08/04/18 13:12 Dose: 3 ml Allopurinol (Zyloprim) 300 mg PO DAILY [place] Last Admin: 08/04/18 13:06 Dose: 300 mg Calcium Acetate (Phoslo) 667 mg PO TID [place] Last Admin: 08/04/18 13:06 Dose: 667 mg Levetiracetam 500 mg/ Sodium (Chloride) 105 mls @ 210 mls/hr IVPB Q12 [place] Last Admin: 08/04/18 13:06 Dose: 210 mls/hr Acyclovir 600 mg/ Sodium (Chloride) 100 mls @ 100 mls/hr IV Q24H [facility]; Protocol Last Admin: 08/03/18 17:19 Dose: 100 mls/hr Clindamycin Phosphate (Cleocin) 600 mg in 50 mls @ 50 mls/hr IVPB Q8 [place]; Protocol Last Admin: 08/04/18 13:07 Dose: 50 mls/hr Ceftriaxone Sodium 2 gm/ (Sodium Chloride) 100 mls @ 0 mls/hr IVPB Q12H [facility]; Protocol Last Admin: 08/04/18 04:06 Dose: 100 mls/hr Insulin Human Regular (Humulin R) 0 units SC ACCU-CHECK [facility]; Protocol Last Admin: 08/04/18 11:14 Dose: 1 u - Labs Labs: 08/04/18 06:00 08/04/18 06:00 PT 16.2 Seconds (9.8-13.1) H 08/04/18 10:28 INR 1.4 08/04/18 10:28 APTT 35.6 Seconds (25.6-37.1) 08/04/18 10:28 - Constitutional Appears: Chronically Ill - Head Exam Head Exam: NORMOCEPHALIC - Eye Exam Eye Exam: absent: Scleral icterus - ENT Exam ENT Exam: Mucous Membranes Dry - Neck Exam Neck Exam: absent: Lymphadenopathy - Respiratory Exam Respiratory Exam: Decreased Breath Sounds - Cardiovascular Exam Cardiovascular Exam: REGULAR RHYTHM - GI/Abdominal Exam GI & Abdominal Exam: Distended - Rectal Exam Rectal Exam: Deferred - Exam Exam: NORMAL INSPECTION - Extremities Exam Extremities Exam: absent: Pedal Edema - Back Exam Back Exam: absent: CVA tenderness (L), CVA tenderness (R) - Neurological Exam Neurological Exam: Altered - Psychiatric Exam Psychiatric exam: Depressed - Skin Skin Exam: Dry Assessment and Plan (1) Sepsis Status: Acute (2) Change in mental state Status: Acute (3) History of CVA with residual deficit Status: Acute (4) Diabetes 1.5, managed as type 2 Status: Chronic (5) History of CVA (cerebrovascular accident) Status: Chronic (6) NSTEMI (non-ST elevated myocardial infarction) Status: Acute (7) JORGE A (acute kidney injury) Status: Acute - Assessment and Plan (Free Text) Assessment: 58 yo female with Hx of HTN Obesity CVA with right weakness, CAD s/p CABG Asthma was admitted via ER with altered mental status which did not respond to Narcan and Glucose infusion by EMS Had prolonged downtime- anoxic event could not be ruled out admitted with fever AMS and NSTEMI now has JORGE A on HD MRI shows severe pansinusitis all cultures/ serologies neg thus far Patient was started on empiric IV antibiotics to cover for possible CHIEF WARDEN infection pending cultures - all cultures neg thus far however Procalcitonin elevated Rx with Vanco / Rocephin/ clinda and acyclovir in progress LP to be deferred at this time OK to d//c isolation prognosis poor from outset
--- NOTE | 2018-08-04 14:15 | CP.PCM.PN ---
Subjective - Date & Time of Evaluation Date of Evaluation: 08/04/18 Time of Evaluation: 14:14 - Subjective Subjective: Neuro Follow-Up Note: Mrs. Landis was evaluated this afternoon in the ICU. Family present. She remains intubated, off sedation. Son states that today the pt has been opening her eyes a lot, though has not had much movement to her extremities. ROS unobtainable from pt 2/2 her condition. Chart reviewed; discussed with primary RN. Family concerns and questions addressed Objective - Vital Signs/Intake and Output Vital Signs (last 24 hours): Temp Pulse Resp BP Pulse Ox 100.9 F H 93 H 30 H 139/78 100 08/04/18 13:06 08/04/18 12:00 08/04/18 12:00 08/04/18 12:00 08/04/18 12:00 Intake and Output: 08/04/18 08/04/18 06:59 18:59 Intake Total 1353 282 Output Total 550 Balance 803 282 - Medications Medications: Current Medications Acetaminophen (Tylenol 650mg/20.3ml Solution Ud) 650 mg PO Q6 PRN PRN Reason: Fever>100.4 F Last Admin: 08/04/18 13:06 Dose: 650 mg Albuterol/Ipratropium (Duoneb 3 Mg/0.5 Mg (3 Ml) Ud) 3 ml INH RQ6 [place] Last Admin: 08/04/18 13:12 Dose: 3 ml Allopurinol (Zyloprim) 300 mg PO DAILY [place] Last Admin: 08/04/18 13:06 Dose: 300 mg Calcium Acetate (Phoslo) 667 mg PO TID [place] Last Admin: 08/04/18 13:06 Dose: 667 mg Levetiracetam 500 mg/ Sodium (Chloride) 105 mls @ 210 mls/hr IVPB Q12 [facility] Last Admin: 08/04/18 13:06 Dose: 210 mls/hr Acyclovir 600 mg/ Sodium (Chloride) 100 mls @ 100 mls/hr IV Q24H [facility]; Protocol Last Admin: 08/03/18 17:19 Dose: 100 mls/hr Clindamycin Phosphate (Cleocin) 600 mg in 50 mls @ 50 mls/hr IVPB Q8 [facility]; Protocol Last Admin: 08/04/18 13:07 Dose: 50 mls/hr Ceftriaxone Sodium 2 gm/ (Sodium Chloride) 100 mls @ 0 mls/hr IVPB Q12H [facility]; Protocol Last Admin: 08/04/18 04:06 Dose: 100 mls/hr Vancomycin HCl 1 gm/ Sodium (Chloride) 250 mls @ 250 mls/hr IVPB MWF [facility]; Protocol Insulin Human Regular (Humulin R) 0 units SC ACCU-CHECK [facility]; Protocol Last Admin: 08/04/18 11:14 Dose: 1 u - Labs Labs: 08/04/18 06:00 08/04/18 06:00 PT 16.2 Seconds (9.8-13.1) H 08/04/18 10:28 INR 1.4 08/04/18 10:28 APTT 35.6 Seconds (25.6-37.1) 08/04/18 10:28 - Constitutional Appears: Other (intubated, off sedation; opens eyes spontaneously; does not follow commands) - Head Exam Head Exam: ATRAUMATIC, NORMAL INSPECTION, NORMOCEPHALIC - Eye Exam Eye Exam: PERRL Pupil Exam: NORMAL ACCOMODATION, PERRL Additional comments: Pupils both reactive and equal, approx 3 mm today + dolls eyes though sluggish; + corneals Pt opening eyes spontaneously and to sternal rub during exam - ENT Exam ENT Exam: Mucous Membranes Moist Additional comments: intubated - Neck Exam Neck Exam: Normal Inspection - Respiratory Exam Respiratory Exam: absent: NORMAL BREATHING PATTERN (intubated) - Cardiovascular Exam Cardiovascular Exam: REGULAR RHYTHM - Exam Additional comments: escudero cath in place - Extremities Exam Extremities Exam: absent: Calf Tenderness, Full ROM, Pedal Edema Additional comments: Extremities flaccid; no tone to left sided extremities (this side was not affected by her previous CVA). Extremities fall immediately to the bed when raised. Some non-purposeful movements noted to LLE during my exam. - Neurological Exam Neurological Exam: Altered. absent: Alert, Awake, Reflexes Normal Neuro motor strength exam: Left Upper Extremity: 0, Right Upper Extremity: 0, Left Lower Extremity: 0, Right Lower Extremity: 0 Additional comments: Pt is still intubated, off sedation; does not follow commands. Pupils equal and reactive; approx 3 mm b/l; + corneals, + dolls eyes though sluggish Opens eyes spontaneously and to sternal rub. Extremities flaccid; no tone to left sided extremities (this side was not affected by her previous CVA). Extremities fall immediately to the bed when raised. Some non-purposeful movements noted to LLE during my exam. Unable to assess sensation Toes downgoing b/l Difficulty in eliciting patellar reflexes - Psychiatric Exam Additional comments: intubated, off sedation; does not follow commands - Skin Skin Exam: Normal Color Assessment and Plan (1) Toxic metabolic encephalopathy Assessment & Plan: Imaging reviewed: -Brain MRI (08/02/18): 1. No acute intracranial abnormality. 2. Cystic encephalomalacia and gliosis in the left pickard radiata and basal ganglia, sequela of remote MCA territory infarction. 3. Mild chronic microangiopathic changes and mild age-related global parenchymal volume loss. 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 4. Pansinusitis, with a complicated retention cyst/polyp in the right maxillary sinus. Fluid in the sphenoid sinus may represent acute sinusitis in the appropriate clinical setting. Bilateral mastoid effusions. -EEG (repeat; 08/01/18): This is an abnormal EEG record that demonstrate the presence of severe non specific diffuse disturbance of cortical activity, this is keeping with a diffuse abbasi matter dysfunction, these findings re not specific. These type of EEG is usually seen in toxic metabolic encephalopathies , hypoxic-ischemic brain injury among others, clinical correlation is recommended. The EEG look similar to the previous video EEG study of 07/29, 07/30. No seizures. Patient is not in status epilepticus. -CT Head (07/30/18): No acute intracranial abnormalities. No significant findings to account for the clinical presentation. No significant interval change compared to the prior examination(s). -CT Head (07/28/18): No acute intracranial abnormalities. No significant findings to account for the clinical presentation. Extensive postoperative changes described above. -EEG (07/30/18): shows burst suppression per Dr. Novak. -ECHO (07/30/18) done: 50-55% -MRA Head/Neck was initially unable to be done (day of intubation)--I reordered it--will f/u with results once done. -Carotid and vertebral U/S ordered but cannot be done at bedside and room in the dept cannot accommodate vent. -We still recommend for Cardiology to do a ANNETTE to r/o septic endocarditis. -ID recommending LP--INR today is 1.4. -Continue current medications and treatment of other acute medical issues. -Continue ICU management. -Notify neuro team of any acute changes to pt's condition. Diane Linder DNP, [employer]ORAT[employer]ER Case discussed with Dr. Santiago Status: Acute
[2018-08-04] MEDS ORDERED: Cefepime (Maxipime) 1 g Inj IVPB STA (17:37)
[2018-08-04] MEDS ORDERED: Cefepime 2 GM in Sodium Chloride 0.9% 100 ML IVPB ONE (17:45)
[2018-08-05] MEDS: Clindamycin 600mg/50ml D5W 600 MG/50 ML VIAL IVPB SCH ×3 (00:39→16:30)
[2018-08-05] MEDS: Albuterol-Ipratrop 3 mg / 0.5 (3 ml) UD INH SCH ×4 (02:11→19:06)
[2018-08-05 04:39] LABS: ABG ALLEN TEST YES; ARTERIAL BLOOD GAS HEMOGLOBIN 9.7 g/dL (11.7-17.4); ARTERIAL BLOOD GAS O2 CAPACITY 13.8 mL/dL (16-24); ARTERIAL BLOOD GAS O2 CONTENT 13.9 ML/dL (15-23); ARTERIAL BLOOD GAS O2 SAT 100.8 % (95-98); ARTERIAL BLOOD GAS PCO2 33 mm/Hg (35-45); ARTERIAL BLOOD GAS PO2 212 mm/Hg (80-100); ARTERIAL BLOOD GAS TCO2 26.7 mmol/L (22-28)
[2018-08-05 05:15] LABS: HEMOGLOBIN 9.6 g/dL (12.0-16.0); MEAN CELL VOLUME 75.1 fl (81.0-99.0); MEAN CORPUSCULAR HEMOGLOBIN 24.2 pg (27.0-31.0); MEAN CORPUSCULAR HGB CONC 32.2 g/dL (33.0-37.0); RBC 3.97 Mil/uL (3.80-5.20); RED CELL DISTRIBUTION WIDTH 19.7 % (11.5-14.5); WHITE BLOOD COUNT 20.6 K/uL (4.8-10.8)
[2018-08-05 06:01] LABS: CALCIUM 9.1 mg/dL (8.4-10.2)
[2018-08-05] MEDS: Insulin Regular 100 units/ml SC SCH ×4 (06:23→22:00)
[2018-08-05] MEDS: levETIRAcetam 500 MG in Sodium Chloride 0.9% 100 ML IVPB SCH ×2 (08:38→21:54)
[2018-08-05] MEDS: Cefepime 1 GM in Sodium Chloride 0.9% 100 ML IVPB SCH (08:39)
[2018-08-05] MEDS ORDERED: Epoetin Alfa 4000 UNIT/ML Inj IV ONE (09:50)
--- NOTE | 2018-08-05 10:21 | CP.PCM.PN ---
Subjective - Date & Time of Evaluation Date of Evaluation: 08/05/18 Time of Evaluation: 10:22 - Subjective Subjective: EPISODES OF AGITATION OPENS EYES ON TOUCH STILL INTUBATED AND BEING VENTILATED Objective - Vital Signs/Intake and Output Vital Signs (last 24 hours): Temp Pulse Resp BP Pulse Ox 101.3 F H 98 H 29 H 183/84 H 100 08/05/18 08:00 08/05/18 08:00 08/05/18 08:00 08/05/18 08:00 08/05/18 08:00 Intake and Output: 08/05/18 08/05/18 06:59 18:59 Intake Total 720 94 Output Total 500 Balance 220 94 - Medications Medications: Current Medications Acetaminophen (Tylenol 650mg/20.3ml Solution Ud) 650 mg PO Q6 PRN PRN Reason: Fever>100.4 F Last Admin: 08/04/18 13:06 Dose: 650 mg Albuterol/Ipratropium (Duoneb 3 Mg/0.5 Mg (3 Ml) Ud) 3 ml INH RQ6 [place] Last Admin: 08/05/18 08:35 Dose: 3 ml Allopurinol (Zyloprim) 300 mg PO DAILY [place] Last Admin: 08/05/18 08:39 Dose: 300 mg Calcium Acetate (Phoslo) 667 mg PO TID [place] Last Admin: 08/05/18 08:39 Dose: 667 mg Levetiracetam 500 mg/ Sodium (Chloride) 105 mls @ 210 mls/hr IVPB Q12 [place] Last Admin: 08/05/18 08:38 Dose: 210 mls/hr Clindamycin Phosphate (Cleocin) 600 mg in 50 mls @ 50 mls/hr IVPB Q8 [facility]; Protocol Last Admin: 08/05/18 08:38 Dose: 50 mls/hr Vancomycin HCl 1 gm/ Sodium (Chloride) 250 mls @ 250 mls/hr IVPB MWF [facility]; Protocol Cefepime HCl 1 gm/ Sodium (Chloride) 100 mls @ 100 mls/hr IVPB DAILY [facility]; Protocol Last Admin: 08/05/18 08:39 Dose: 100 mls/hr Insulin Human Regular (Humulin R) 0 units SC ACCU-CHECK [facility]; Protocol Last Admin: 08/05/18 06:23 Dose: 1 u Vitamin B Complex/Vit C/Folic Acid (Nephro-Everardo) 1 tab PO DAILY [place] - Labs Labs: 08/05/18 04:40 08/05/18 04:40 PT 16.2 Seconds (9.8-13.1) H 08/04/18 10:28 INR 1.4 08/04/18 10:28 APTT 35.6 Seconds (25.6-37.1) 08/04/18 10:28 - Constitutional Appears: Chronically Ill - Head Exam Head Exam: ATRAUMATIC, NORMAL INSPECTION, NORMOCEPHALIC - Eye Exam Eye Exam: EOMI, Normal appearance, PERRL Pupil Exam: NORMAL ACCOMODATION, PERRL - ENT Exam ENT Exam: Mucous Membranes Moist, Normal Exam - Neck Exam Neck Exam: Full ROM, Normal Inspection. absent: Lymphadenopathy - Respiratory Exam Respiratory Exam: Prolonged Expiratory Phase, Rales Additional comments: INTUBATED AND BEING VENTILATED - Cardiovascular Exam Cardiovascular Exam: REGULAR RHYTHM, +S1, +S2. absent: Murmur - GI/Abdominal Exam GI & Abdominal Exam: Soft, Normal Bowel Sounds. absent: Tenderness - Rectal Exam Rectal Exam: NORMAL INSPECTION - Extremities Exam Extremities Exam: Full ROM, Normal Capillary Refill, Pedal Edema. absent: Joint Swelling - Back Exam Back Exam: NORMAL INSPECTION - Psychiatric Exam Psychiatric exam: Normal Affect, Normal Mood - Skin Skin Exam: Dry, Intact, Normal Color, Warm Assessment and Plan - Assessment and Plan (Free Text) Assessment: RESP FAILURE RENAL FAILURE PNEUMONIA SEPSIS Plan: CONTINUE CURRENT RX WILL FOLLOW
--- NOTE | 2018-08-05 10:44 | RAD ---
Date of service: 08/05/2018 PROCEDURE: CHEST RADIOGRAPH, 1 VIEW HISTORY: Intubated COMPARISON: Chest radiograph dated 08/04/2018. FINDINGS: LUNGS: Pulmonary vascular congestion. Bibasilar atelectasis. PLEURA: Small bilateral pleural effusions. No appreciable pneumothorax. CARDIOVASCULAR: Prior sternotomy with sternal wires, prosthetic aortic valve and surgical clips redemonstrated. Aortic atherosclerotic calcifications. Cardiomediastinal silhouette stably enlarged. OSSEOUS STRUCTURES: Changed. VISUALIZED UPPER ABDOMEN: Normal. OTHER FINDINGS: Endotracheal and enteric tubes, unchanged. Right internal jugular access central venous catheter and non tunneled hemodialysis catheter is, unchanged. IMPRESSION: Stable tubes and lines. Stable pulmonary vascular congestion and small bilateral pleural effusions
--- NOTE | 2018-08-05 11:56 | CP.CCUPN ---
CCU Subjective - Physician Review Subjective (Free Text): Except for minimal increase in spontaneous eye opening, no other real improvement in neuro-mental status. Positive fluid balance daily noted since admission, with periods of oliguria. No observed recurrent seizure activity, no documented further hypoglycemic episodes. Persistent fevers over past 24H, 101.1max, HR and SBPs which were relatively stable are now exhibiting higher SBPs up to 199. Breathing 26 on AC 14, 450 ml, 50% oxygen and PEEP 5, SPo2 100%. Other vitals and I/O's reviewed. ROS: No other pertinent negs or positives on 10+ system review obtainable due to coma PMSFH: All other Nursing and physician documentation reviewed to date; no new pertinent info noted relevant to current medical problems. EXAM- HEENT: no icterus, no gaze preference, 3-4 mm and sluggish minimal reactivity noted, no nystagmus NECK: no JVD visible, supple, carotids equal upstroke bilat/no bruit, R IJV central line intact. CHEST: decreased BS at the bases, no wheezes audible HEART: irregular, distant, S1S2, no rubs ABD: soft, obese, no distension, no focal tenderness, no tympany, no guarding, no organomegaly, BS hypoactive. EXT: + LE edema, no mottling; no calf tenderness or palpable cords, distal pulses intact and symmetrical, no cyanosis, no mottling. NEURO: R sided hemiplegia, minimal posturing of LUE and LLE SKIN: no rashes, warm and dry LABS: WBC= 20.6 HGB= 9.6 PLTs= 115K 7.50/33/212 Na= 142 K= 3.3 CL= 101 HCO3= 25 BUN/Cr= 56/5.5 BS= 173 CXR; (my interp) ETT position OK above monster, increased R worse than L scattered bilat infiltrates, improved aeration RLL, now worse bibasilar haziness today. IMPRESSION / MAJOR PROBLEMS NOW: 1. Acute Hypoxemic Resp Failure 2 Aspiration PNA 2. Anoxic Encephalopathy 2 unclear Seizure event (hypoglycemic) and prolonged down time (EMS reports 25 minutes, but may have been longer as in not seen till next morning according to sons accounts of events, as he lives with her); or prolonged post-ictal state versus other occult FORENSIC TOXICOLOGIST injury / infection / subacute CVA. 3. Superimposed Metabolic Encephalopathy from Acute Renal Failure 4. Accelerated HTN 5. DM II PLAN: 1. No MV weans given obtundation; fio2 decreased to 40% today. 2. More K supplements today. 3. Watch platelet counts. 4. Awaiting on Aug 03 Sputum results. 5. Labetalol prn if MAP exceeds 110.
[2018-08-05] MEDS: Labetalol 5mg/ml (4ml) IVP PRN ×2 (13:15→20:37)
--- NOTE | 2018-08-05 13:47 | CP.PCM.PN ---
Subjective - Date & Time of Evaluation Date of Evaluation: 08/05/18 Time of Evaluation: 10:00 - Subjective Subjective: Nephrology Consultation Note Assessment: critical Altered mental status Respiratory failure/intubated Acute renal failure/acute kidney injury related to multifactorial including sepsis. Diabetes mellitus and history of hypertension history of CVA. Patient remained obtunded with encephalopathy hyperurecemia Hyperphosphatemia Shock liver nephrosis with 7 gram proteinuria on dipstick Plan plan for HD as ordered today if possible or tomorrow Hypertension control with meds as ordered. Maintain hemodynamics stable. Avoid hypotension. Patient not on ACEI/ARB due to recent JORGE A Monitor Input/Output, daily weights and renal function with basic metabolic panel Check ANCA, GBM ab Dose meds/antibiotics for reduced GFR. Avoid fleets enema/magnesium based laxatives. Avoid nephrotoxins/NSAIDs/ iodinated contrast (unless needed emerge ntly) Glycemic control Further work up for as per primary team Thanks for allowing me to participate in care of your patient. Will follow patient with you. Please call if any Qs. had d/w team Dr Scott Sherman Office: [phone] Subjective: Noted events overnight. Patients intubated Physical Examination: General Appearance: orally intuabted ill appearing Vitals reviewed and noted as below Head; Atraumatic, normocephalic ENT: intubated Neck; supple no lymphadenopathy, no thyromegaly or bruit Lungs: Normal respiratory rate/effort. Breath sounds bilateral reduced at bases Heart: Normal rate. s1s2 normal. No rub or gallop. Extremities: no edema. No varicose veins Neurological: Patient is unresponsive Skin: Warm and dry. Normal turgor. No rash. Palpitation: Normal elasticity for age Abdomen: Abdomen is soft. Bowel sounds +. There is no abdominal tenderness, no guarding/rigidity no organomegaly Psych: unable MSK: no joint tenderness or swelling. Digits and nails normal, no deformity : kidney or bladder not palpable Rt IJ as access Labs/imaging reviewed. Past medical history, past surgical history, family history, social history, allergy reviewed and noted as below Family hx: no hx of CKD. Rest non-contributory Objective - Vital Signs/Intake and Output Vital Signs (last 24 hours): Temp Pulse Resp BP Pulse Ox 100.4 F H 89 24 182/88 H 100 08/05/18 12:00 08/05/18 12:00 08/05/18 12:00 08/05/18 12:00 08/05/18 12:00 Intake and Output: 08/05/18 08/05/18 06:59 18:59 Intake Total 720 578 Output Total 500 Balance 220 578 - Medications Medications: Current Medications Acetaminophen (Tylenol 650mg/20.3ml Solution Ud) 650 mg PO Q6 PRN PRN Reason: Fever>100.4 F Last Admin: 08/04/18 13:06 Dose: 650 mg Albuterol/Ipratropium (Duoneb 3 Mg/0.5 Mg (3 Ml) Ud) 3 ml INH RQ6 [facility] Last Admin: 08/05/18 08:35 Dose: 3 ml Allopurinol (Zyloprim) 300 mg PO DAILY [facility] Last Admin: 08/05/18 08:39 Dose: 300 mg Calcium Acetate (Phoslo) 667 mg PO TID [facility] Last Admin: 08/05/18 12:23 Dose: 667 mg Levetiracetam 500 mg/ Sodium (Chloride) 105 mls @ 210 mls/hr IVPB Q12 [facility] Last Admin: 08/05/18 08:38 Dose: 210 mls/hr Clindamycin Phosphate (Cleocin) 600 mg in 50 mls @ 50 mls/hr IVPB Q8 [facility]; Protocol Last Admin: 08/05/18 08:38 Dose: 50 mls/hr Vancomycin HCl 1 gm/ Sodium (Chloride) 250 mls @ 250 mls/hr IVPB MWF [facility]; Protocol Cefepime HCl 1 gm/ Sodium (Chloride) 100 mls @ 100 mls/hr IVPB DAILY [facility]; Protocol Last Admin: 08/05/18 08:39 Dose: 100 mls/hr Insulin Human Regular (Humulin R) 0 units SC ACCU-CHECK [facility]; Protocol Last Admin: 08/05/18 11:16 Dose: 1 u Labetalol HCl (Trandate) 20 mg IVP Q4 PRN PRN Reason: Systolic Blood Pressure Last Admin: 08/05/18 13:15 Dose: 20 mg Vitamin B Complex/Vit C/Folic Acid (Nephro-Everardo) 1 tab PO DAILY [facility] - Labs Labs: 08/05/18 04:40 08/05/18 04:40 PT 16.2 Seconds (9.8-13.1) H 08/04/18 10:28 INR 1.4 08/04/18 10:28 APTT 35.6 Seconds (25.6-37.1) 08/04/18 10:28
--- NOTE | 2018-08-05 13:59 | CP.PCM.PN ---
Subjective - Date & Time of Evaluation Date of Evaluation: 08/05/18 Time of Evaluation: 13:56 - Subjective Subjective: Mrs. Landis was seen and examined today in the ICU. She continues to be intubated, off sedation not following any commands. Moves the left side spontaneously, but not the right. Objective - Vital Signs/Intake and Output Vital Signs (last 24 hours): Temp Pulse Resp BP Pulse Ox 100.4 F H 89 24 182/88 H 100 08/05/18 12:00 08/05/18 12:00 08/05/18 12:00 08/05/18 12:00 08/05/18 12:00 Intake and Output: 08/05/18 08/05/18 06:59 18:59 Intake Total 720 578 Output Total 500 Balance 220 578 - Medications Medications: Current Medications Acetaminophen (Tylenol 650mg/20.3ml Solution Ud) 650 mg PO Q6 PRN PRN Reason: Fever>100.4 F Last Admin: 08/04/18 13:06 Dose: 650 mg Albuterol/Ipratropium (Duoneb 3 Mg/0.5 Mg (3 Ml) Ud) 3 ml INH RQ6 [facility] Last Admin: 08/05/18 08:35 Dose: 3 ml Allopurinol (Zyloprim) 300 mg PO DAILY [facility] Last Admin: 08/05/18 08:39 Dose: 300 mg Calcium Acetate (Phoslo) 667 mg PO TID [facility] Last Admin: 08/05/18 12:23 Dose: 667 mg Levetiracetam 500 mg/ Sodium (Chloride) 105 mls @ 210 mls/hr IVPB Q12 [facility] Last Admin: 08/05/18 08:38 Dose: 210 mls/hr Clindamycin Phosphate (Cleocin) 600 mg in 50 mls @ 50 mls/hr IVPB Q8 [facility]; Protocol Last Admin: 08/05/18 08:38 Dose: 50 mls/hr Vancomycin HCl 1 gm/ Sodium (Chloride) 250 mls @ 250 mls/hr IVPB MWF [facility]; Protocol Cefepime HCl 1 gm/ Sodium (Chloride) 100 mls @ 100 mls/hr IVPB DAILY [facility]; Protocol Last Admin: 08/05/18 08:39 Dose: 100 mls/hr Insulin Human Regular (Humulin R) 0 units SC ACCU-CHECK [facility]; Protocol Last Admin: 08/05/18 11:16 Dose: 1 u Labetalol HCl (Trandate) 20 mg IVP Q4 PRN PRN Reason: Systolic Blood Pressure Last Admin: 08/05/18 13:15 Dose: 20 mg Vitamin B Complex/Vit C/Folic Acid (Nephro-Everardo) 1 tab PO DAILY [facility] - Labs Labs: 08/05/18 04:40 08/05/18 04:40 PT 16.2 Seconds (9.8-13.1) H 08/04/18 10:28 INR 1.4 08/04/18 10:28 APTT 35.6 Seconds (25.6-37.1) 08/04/18 10:28 - Neurological Exam Neurological Exam: Altered Neuro motor strength exam: Left Upper Extremity: 3, Right Upper Extremity: 0, Left Lower Extremity: 3, Right Lower Extremity: 0 Additional comments: Right gaze preference, not tracking, not following commands, withdraws to pain on the left side but not the right. Pupils are reactive. Brainstem reflexes intact. Assessment and Plan (1) Toxic metabolic encephalopathy Assessment & Plan: Continue current medical management. A source of infection may be evaluated for. It appears there may be a systemic embolic event that has affected the liver, kidneys and brain. ANNETTE is recommended. Status: Acute
[2018-08-06] MEDS: Labetalol 5mg/ml (4ml) IVP PRN (02:38)
[2018-08-06] MEDS: Albuterol-Ipratrop 3 mg / 0.5 (3 ml) UD INH SCH ×4 (02:42→19:22)
[2018-08-06 05:54] LABS: BASO # 0.1 K/uL (0.0-0.2); BASO % 0.3 % (0.0-2.0); EOS # 0.3 K/uL (0.0-0.7); EOS % 1.6 % (0.0-4.0); HEMOGLOBIN 9.7 g/dL (12.0-16.0); LYMPH # 0.7 K/uL (1.0-4.3); LYMPH % 3.7 % (20.0-40.0); MEAN CELL VOLUME 75.4 fl (81.0-99.0); MEAN CORPUSCULAR HEMOGLOBIN 24.3 pg (27.0-31.0); MEAN CORPUSCULAR HGB CONC 32.2 g/dL (33.0-37.0); MEAN PLATELET VOLUME 11.3 fl (7.2-11.7); MONO # 2.2 K/uL (0.0-0.8); MONO % 11.2 % (0.0-10.0); NEUT # 16.6 K/uL (1.8-7.0); NEUT % 83.2 % (50.0-75.0); NRBC % 0.1 % (0.0-0.0); PLATELET COUNT 158 K/uL (130-400); RBC 3.97 Mil/uL (3.80-5.20); RED CELL DISTRIBUTION WIDTH 19.5 % (11.5-14.5); WHITE BLOOD COUNT 19.9 K/uL (4.8-10.8)
[2018-08-06 06:07] LABS: ALB/GLOB RATIO 0.9 (1.0-2.1); ALBUMIN 3.4 g/dL (3.5-5.0); CALCIUM 9.3 mg/dL (8.4-10.2)
[2018-08-06] MEDS: Multivitamin Vitamin B Complex (Nephro-Vite) Tab PO SCH (08:05)
[2018-08-06] MEDS: levETIRAcetam 500 MG in Sodium Chloride 0.9% 100 ML IVPB SCH ×2 (08:06→20:53)
[2018-08-06] MEDS: Cefepime 1 GM in Sodium Chloride 0.9% 100 ML IVPB SCH (08:44)
[2018-08-06] MEDS ORDERED: Potassium Chloride 20 mEq/15 ml LIQ UD GT ONE (08:45)
--- NOTE | 2018-08-06 08:59 | CP.CCUPN ---
CCU Subjective - Physician Review Subjective (Free Text): Eyes spontaneously open more often, not following commands, moving left extremities more purposefully. No observed recurrent seizure activity, no documented further hypoglycemic episodes. Now 99F, but 101.3max over the past 24H, HR and SBPs which were relatively s table are now exhibiting higher SBPs up to 190s. Labetalol prn stated. Breathing 22 on AC 14, 450 ml, 50% oxygen and PEEP 5, SPo2 100%. Other vitals and I/O's reviewed. ROS: No other pertinent negs or positives on 10+ system review obtainable due to coma PMSFH: All other Nursing and physician documentation reviewed to date; no new pertinent info noted relevant to current medical problems. EXAM- HEENT: no icterus, no gaze preference, 3-4 mm and sluggish minimal reactivity noted, no nystagmus NECK: no JVD visible, supple, carotids equal upstroke bilat/no bruit, R IJV central line intact. CHEST: decreased BS at the bases, no wheezes audible HEART: irregular, distant, S1S2, no rubs ABD: soft, obese, no distension, no focal tenderness, no tympany, no guarding, no organomegaly, BS hypoactive. EXT: + LE edema, no mottling; no calf tenderness or palpable cords, distal pulses intact and symmetrical, no cyanosis, no mottling. NEURO: R sided hemiplegia, minimal posturing of LUE and LLE SKIN: no rashes, warm and dry LABS: WBC= 19.9 HGB= 9.7 PLTs= 158K 7.50/33/212 Na= 143 K= 3.2 CL= 102 HCO3= 26 BUN/Cr= 68/5.7 BS= 239 CXR; (my interp) ETT position OK above monster, rose;ateral, bibasilar haziness today. IMPRESSION / MAJOR PROBLEMS NOW: 1. Acute Hypoxemic Resp Failure 2 Aspiration PNA 2. Anoxic Encephalopathy 2 unclear Seizure event (hypoglycemic) and prolonged down time (EMS reports 25 minutes, but may have been longer as in not seen till next morning according to sons accounts of events, as he lives with her); or prolonged post-ictal state versus other occult FI[employer]SH[employer] REFINERY injury / infection / subacute CVA. 3. Superimposed Metabolic Encephalopathy from Acute Renal Failure 4. Accelerated HTN 5. DM II PLAN: 1. Day # 5 on MV, no overall improvement in neuromental status precludes MV weans, try decreasing fio2 to 40% today. May need to consider early trach. 2. Only 20 meq K supplement today. No arrhythmias noted. For HD in AM tomorrow. 3. Platelet counts improved today. LFTs slowly improving 4. Aug 03 Sputum results reviewed; no growth of any organisms. Ongoing Maxipime / Vanco. Procalcitonin appropriately decreasing on current abx regimen. 5. Went for MRA Head & Neck study yesterday; results pending. 6. Labetalol prn if MAP exceeds 110.
[2018-08-06] MEDS: Insulin Regular 100 units/ml SC SCH ×3 (11:22→22:05)
--- NOTE | 2018-08-06 11:41 | RAD ---
Date of service: 08/06/2018 HISTORY: Patient intubated COMPARISON: Chest radiograph dated 08/05/2018. FINDINGS: LUNGS: Pulmonary vascular congestion. Bibasilar atelectasis. PLEURA: Small bilateral pleural effusions. No appreciable pneumothorax. CARDIOVASCULAR: Prior sternotomy with sternal wires, prosthetic aortic valve and surgical clips in place. Aortic atherosclerotic calcifications. Cardiomediastinal silhouette stably enlarged. OSSEOUS STRUCTURES: Unchanged. VISUALIZED UPPER ABDOMEN: Right upper quadrant surgical clips. OTHER FINDINGS: Endotracheal and enteric tubes, unchanged. Right internal jugular access central venous and non tunneled hemodialysis catheters, unchanged. IMPRESSION: Stable tubes and lines. Stable pulmonary vascular congestion small bilateral pleural effusions. No significant interval change.
--- NOTE | 2018-08-06 12:17 | CP.PCM.PN ---
Subjective - Date & Time of Evaluation Date of Evaluation: 08/06/18 Time of Evaluation: 09:00 - Subjective Subjective: events noted fever on /off opens eyes weaker on right Neuro following Objective - Vital Signs/Intake and Output Vital Signs (last 24 hours): Temp Pulse Resp BP Pulse Ox 99.7 F H 70 18 149/67 100 08/06/18 08:00 08/06/18 11:00 08/06/18 11:00 08/06/18 11:00 08/06/18 11:00 Intake and Output: 08/06/18 08/06/18 06:59 18:59 Intake Total 454 465 Output Total 700 Balance -246 465 - Medications Medications: Current Medications Acetaminophen (Tylenol 650mg/20.3ml Solution Ud) 650 mg PO Q6 PRN PRN Reason: Fever>100.4 F Last Admin: 08/04/18 13:06 Dose: 650 mg Albuterol/Ipratropium (Duoneb 3 Mg/0.5 Mg (3 Ml) Ud) 3 ml INH RQ6 [facility] Last Admin: 08/06/18 07:21 Dose: 3 ml Allopurinol (Zyloprim) 300 mg PO DAILY [facility] Last Admin: 08/06/18 08:43 Dose: 300 mg Calcium Acetate (Phoslo) 667 mg PO TID [facility] Last Admin: 08/06/18 08:05 Dose: 667 mg Levetiracetam 500 mg/ Sodium (Chloride) 105 mls @ 210 mls/hr IVPB Q12 [facility] Last Admin: 08/06/18 08:06 Dose: 210 mls/hr Vancomycin HCl 1 gm/ Sodium (Chloride) 250 mls @ 250 mls/hr IVPB MWF [facility]; Protocol Cefepime HCl 1 gm/ Sodium (Chloride) 100 mls @ 100 mls/hr IVPB DAILY [facility]; Protocol Last Admin: 08/06/18 08:44 Dose: 100 mls/hr Insulin Human Regular (Humulin R) 0 units SC ACCU-CHECK [facility]; Protocol Last Admin: 08/06/18 11:22 Dose: 2 u Labetalol HCl (Trandate) 20 mg IVP Q4 PRN PRN Reason: Systolic Blood Pressure Last Admin: 08/06/18 02:38 Dose: 20 mg Vitamin B Complex/Vit C/Folic Acid (Nephro-Everardo) 1 tab PO DAILY [facility] Last Admin: 08/06/18 08:05 Dose: 1 tab - Labs Labs: 08/06/18 05:40 08/06/18 05:40 PT 16.2 Seconds (9.8-13.1) H 08/04/18 10:28 INR 1.4 08/04/18 10:28 APTT 35.6 Seconds (25.6-37.1) 08/04/18 10:28 - Constitutional Appears: Confused, Chronically Ill - Head Exam Head Exam: NORMOCEPHALIC - Eye Exam Eye Exam: PERRL. absent: Scleral icterus - ENT Exam ENT Exam: Mucous Membranes Dry - Neck Exam Neck Exam: absent: Lymphadenopathy - Respiratory Exam Respiratory Exam: Decreased Breath Sounds, Prolonged Expiratory Phase, Rhonchi - Cardiovascular Exam Cardiovascular Exam: REGULAR RHYTHM - GI/Abdominal Exam GI & Abdominal Exam: Distended, Soft - Rectal Exam Rectal Exam: Deferred - Exam Exam: NORMAL INSPECTION - Extremities Exam Extremities Exam: Pedal Edema - Back Exam Back Exam: absent: CVA tenderness (L), CVA tenderness (R) - Neurological Exam Neurological Exam: Altered - Psychiatric Exam Psychiatric exam: Depressed - Skin Skin Exam: Dry Assessment and Plan (1) Sepsis Status: Acute (2) Change in mental state Status: Acute (3) History of CVA with residual deficit Status: Acute (4) Diabetes 1.5, managed as type 2 Status: Chronic (5) History of CVA (cerebrovascular accident) Status: Chronic (6) NSTEMI (non-ST elevated myocardial infarction) Status: Acute (7) JORGE A (acute kidney injury) Status: Acute (8) Pansinusitis Status: Acute - Assessment and Plan (Free Text) Assessment: Improving ON HD today fever on and off - will reculture cont rx pansinusitis/ sepsis Vanco/cefepime AMS improved however neuro deficit persists
[2018-08-06 12:22] LABS: EOSINOPHIL 1 % (0-7); LYMPHOCYTE 2 % (20-50); MONOCYTE 9 % (0-10); NEUTROPHIL 88 % (42-75); PLATELET ESTIMATE NORMAL (NORMAL); TOTAL CELLS COUNTED 100
[2018-08-06 12:24] LABS: ANISOCYTOSIS SLIGHT; HYPOCHROMIC SLIGHT
[2018-08-06 12:25] LABS: OVALOCYTES SLIGHT
--- NOTE | 2018-08-06 12:25 | CP.PCM.PN ---
Subjective - Date & Time of Evaluation Date of Evaluation: 08/06/18 Time of Evaluation: 12:24 - Subjective Subjective: Nephrology Consultation Note Assessment: critical Altered mental status Respiratory failure/intubated Acute renal failure/acute kidney injury related to multifactorial including sepsis. Diabetes mellitus and history of hypertension history of CVA. Patient remained obtunded with encephalopathy hyperurecemia Hyperphosphatemia Shock liver nephrosis with 7 gram proteinuria on dipstick Plan plan for HD as ordered today Hypertension control with meds as ordered. Maintain hemodynamics stable. Avoid hypotension. Patient not on ACEI/ARB due to recent JORGE A Monitor Input/Output, daily weights and renal function with basic metabolic pane l supplement lytes as needed Check ANCA, GBM ab Dose meds/antibiotics for reduced GFR. Avoid fleets enema/magnesium based laxatives. Avoid nephrotoxins/NSAIDs/ iodinated contrast (unless needed sancho gently) Glycemic control Further work up for as per primary team Thanks for allowing me to participate in care of your patient. Will follow patient with you. Please call if any Qs. had d/w team Dr Scott Sherman Office: [phone] Subjective: Noted events overnight. Patients intubated Physical Examination: General Appearance: orally intuabted ill appearing Vitals reviewed and noted as below Head; Atraumatic, normocephalic ENT: intubated Neck; supple no lymphadenopathy, no thyromegaly or bruit Lungs: Normal respiratory rate/effort. Breath sounds bilateral reduced at bases Heart: Normal rate. s1s2 normal. No rub or gallop. Extremities: no edema. No varicose veins Neurological: Patient is awake today Skin: Warm and dry. Normal turgor. No rash. Palpitation: Normal elasticity for age Abdomen: Abdomen is soft. Bowel sounds +. There is no abdominal tenderness, no guarding/rigidity no organomegaly Psych: unable MSK: no joint tenderness or swelling. Digits and nails normal, no deformity : kidney or bladder not palpable Rt IJ as access Labs/imaging reviewed. Past medical history, past surgical history, family history, social history, allergy reviewed and noted as below Family hx: no hx of CKD. Rest non-contributory Objective - Vital Signs/Intake and Output Vital Signs (last 24 hours): Temp Pulse Resp BP Pulse Ox 99.9 F H 74 28 H 174/74 H 100 08/06/18 12:00 08/06/18 12:00 08/06/18 12:00 08/06/18 12:00 08/06/18 12:00 Intake and Output: 08/06/18 08/06/18 06:59 18:59 Intake Total 454 465 Output Total 700 Balance -246 465 - Medications Medications: Current Medications Acetaminophen (Tylenol 650mg/20.3ml Solution Ud) 650 mg PO Q6 PRN PRN Reason: Fever>100.4 F Last Admin: 08/04/18 13:06 Dose: 650 mg Albuterol/Ipratropium (Duoneb 3 Mg/0.5 Mg (3 Ml) Ud) 3 ml INH RQ6 [facility] Last Admin: 08/06/18 07:21 Dose: 3 ml Allopurinol (Zyloprim) 300 mg PO DAILY [facility] Last Admin: 08/06/18 08:43 Dose: 300 mg Calcium Acetate (Phoslo) 667 mg PO TID [facility] Last Admin: 08/06/18 08:05 Dose: 667 mg Levetiracetam 500 mg/ Sodium (Chloride) 105 mls @ 210 mls/hr IVPB Q12 [facility] Last Admin: 08/06/18 08:06 Dose: 210 mls/hr Vancomycin HCl 1 gm/ Sodium (Chloride) 250 mls @ 250 mls/hr IVPB MWF [facility]; Protocol Cefepime HCl 1 gm/ Sodium (Chloride) 100 mls @ 100 mls/hr IVPB DAILY [facility]; Protocol Last Admin: 08/06/18 08:44 Dose: 100 mls/hr Insulin Human Regular (Humulin R) 0 units SC ACCU-CHECK [facility]; Protocol Last Admin: 08/06/18 11:22 Dose: 2 u Labetalol HCl (Trandate) 20 mg IVP Q4 PRN PRN Reason: Systolic Blood Pressure Last Admin: 08/06/18 02:38 Dose: 20 mg Vitamin B Complex/Vit C/Folic Acid (Nephro-Everardo) 1 tab PO DAILY [facility] Last Admin: 08/06/18 08:05 Dose: 1 tab - Labs Labs: 08/06/18 05:40 08/06/18 05:40 PT 16.2 Seconds (9.8-13.1) H 08/04/18 10:28 INR 1.4 08/04/18 10:28 APTT 35.6 Seconds (25.6-37.1) 08/04/18 10:28
[2018-08-06 14:45] LABS: ABG ALLEN TEST YES; ARTERIAL BLOOD GAS O2 CAPACITY 14.1 mL/dL (16-24); ARTERIAL BLOOD GAS O2 CONTENT 14.2 ML/dL (15-23); ARTERIAL BLOOD GAS O2 SAT 100.4 % (95-98); ARTERIAL BLOOD GAS PCO2 29 mm/Hg (35-45); ARTERIAL BLOOD GAS PH 7.54 (7.35-7.45); ARTERIAL BLOOD GAS PO2 225 mm/Hg (80-100); ARTERIAL BLOOD GAS TCO2 25.7 mmol/L (22-28)
--- NOTE | 2018-08-07 02:26 | CP.PCM.PN ---
Subjective - Date & Time of Evaluation Date of Evaluation: 08/02/18 Time of Evaluation: 08:00 - Subjective Subjective: Pt seen and assessed at bedside. Currently obtunded; unable to follow any type of commands. Plan of care discussed with staff. Review of Systems - Review of Systems Systems not reviewed;Unavailable: Acuity of Condition Objective - Vital Signs/Intake and Output Vital Signs (last 24 hours): Temp Pulse Resp BP Pulse Ox 98 F 72 18 147/84 100 08/07/18 00:00 08/07/18 00:00 08/07/18 00:00 08/07/18 00:00 08/07/18 00:00 Intake and Output: 08/06/18 08/07/18 18:59 06:59 Intake Total 1125 428 Output Total 1900 Balance -775 428 - Medications Medications: Current Medications Acetaminophen (Tylenol 650mg/20.3ml Solution Ud) 650 mg PO Q6 PRN PRN Reason: Fever>100.4 F Last Admin: 08/04/18 13:06 Dose: 650 mg Albuterol/Ipratropium (Duoneb 3 Mg/0.5 Mg (3 Ml) Ud) 3 ml INH RQ6 [facility] Last Admin: 08/06/18 19:22 Dose: 3 ml Allopurinol (Zyloprim) 300 mg PO DAILY [facility] Last Admin: 08/06/18 08:43 Dose: 300 mg Calcium Acetate (Phoslo) 667 mg PO TID [facility] Last Admin: 08/06/18 16:04 Dose: 667 mg Levetiracetam 500 mg/ Sodium (Chloride) 105 mls @ 210 mls/hr IVPB Q12 [facility] Last Admin: 08/06/18 20:53 Dose: 210 mls/hr Vancomycin HCl 1 gm/ Sodium (Chloride) 250 mls @ 250 mls/hr IVPB MWF [facility]; Protocol Cefepime HCl 1 gm/ Sodium (Chloride) 100 mls @ 100 mls/hr IVPB DAILY [facility]; Protocol Last Admin: 08/06/18 08:44 Dose: 100 mls/hr Insulin Human Regular (Humulin R) 0 units SC ACCU-CHECK [facility]; Protocol Last Admin: 08/06/18 22:05 Dose: 2 u Labetalol HCl (Trandate) 20 mg IVP Q4 PRN PRN Reason: Systolic Blood Pressure Last Admin: 08/06/18 02:38 Dose: 20 mg Vitamin B Complex/Vit C/Folic Acid (Nephro-Everardo) 1 tab PO DAILY [facility] Last Admin: 08/06/18 08:05 Dose: 1 tab - Labs Labs: 08/06/18 05:40 08/06/18 05:40 PT 16.2 Seconds (9.8-13.1) H 08/04/18 10:28 INR 1.4 08/04/18 10:28 APTT 35.6 Seconds (25.6-37.1) 08/04/18 10:28 - Head Exam Head Exam: ATRAUMATIC, NORMAL INSPECTION, NORMOCEPHALIC - Eye Exam Eye Exam: EOMI, Normal appearance, PERRL Pupil Exam: NORMAL ACCOMODATION, PERRL - ENT Exam ENT Exam: Mucous Membranes Moist - Neck Exam Neck Exam: Normal Inspection - Respiratory Exam Respiratory Exam: Rhonchi - Cardiovascular Exam Cardiovascular Exam: Irregular Rhythm - GI/Abdominal Exam GI & Abdominal Exam: Soft, Normal Bowel Sounds - Extremities Exam Extremities Exam: Normal Inspection - Back Exam Back Exam: NORMAL INSPECTION - Neurological Exam Additional comments: obtunded; unable to follow commands. - Skin Skin Exam: Dry, Normal Color, Warm Assessment and Plan (1) Encephalopathy Assessment & Plan: 1.) Encephalopathy -Currently obtunded and unable to follows commands. -Consults input appreciated. -Assess respiratory status and need for additional oxygenation/intubation. -evaluate cause of encephalopathy (anoxic, metabolic). -EEG to be done with neurology. -Continue current tx, prognosis is poor. Status: Acute
[2018-08-07] MEDS: Albuterol-Ipratrop 3 mg / 0.5 (3 ml) UD INH SCH ×4 (02:41→19:57)
--- NOTE | 2018-08-07 02:43 | CP.PCM.PN ---
Subjective - Date & Time of Evaluation Date of Evaluation: 08/05/18 Time of Evaluation: 12:00 - Subjective Subjective: Pt seen and assessed at bedside. Orally intubated in room 421. Pt currently has a fever. Review of Systems - Review of Systems Systems not reviewed;Unavailable: Acuity of Condition Objective - Vital Signs/Intake and Output Vital Signs (last 24 hours): Temp Pulse Resp BP Pulse Ox 98 F 72 18 147/84 100 08/07/18 00:00 08/07/18 00:00 08/07/18 00:00 08/07/18 00:00 08/07/18 00:00 Intake and Output: 08/06/18 08/07/18 18:59 06:59 Intake Total 1125 428 Output Total 1900 Balance -775 428 - Medications Medications: Current Medications Acetaminophen (Tylenol 650mg/20.3ml Solution Ud) 650 mg PO Q6 PRN PRN Reason: Fever>100.4 F Last Admin: 08/04/18 13:06 Dose: 650 mg Albuterol/Ipratropium (Duoneb 3 Mg/0.5 Mg (3 Ml) Ud) 3 ml INH RQ6 [place] Last Admin: 08/07/18 02:41 Dose: 3 ml Allopurinol (Zyloprim) 300 mg PO DAILY [place] Last Admin: 08/06/18 08:43 Dose: 300 mg Calcium Acetate (Phoslo) 667 mg PO TID [place] Last Admin: 08/06/18 16:04 Dose: 667 mg Levetiracetam 500 mg/ Sodium (Chloride) 105 mls @ 210 mls/hr IVPB Q12 [place] Last Admin: 08/06/18 20:53 Dose: 210 mls/hr Vancomycin HCl 1 gm/ Sodium (Chloride) 250 mls @ 250 mls/hr IVPB MWF [facility]; Protocol Cefepime HCl 1 gm/ Sodium (Chloride) 100 mls @ 100 mls/hr IVPB DAILY [facility]; Protocol Last Admin: 08/06/18 08:44 Dose: 100 mls/hr Insulin Human Regular (Humulin R) 0 units SC ACCU-CHECK [place]; Protocol Last Admin: 08/06/18 22:05 Dose: 2 u Labetalol HCl (Trandate) 20 mg IVP Q4 PRN PRN Reason: Systolic Blood Pressure Last Admin: 08/06/18 02:38 Dose: 20 mg Vitamin B Complex/Vit C/Folic Acid (Nephro-Everardo) 1 tab PO DAILY [place] Last Admin: 08/06/18 08:05 Dose: 1 tab - Labs Labs: 08/06/18 05:40 08/06/18 05:40 PT 16.2 Seconds (9.8-13.1) H 08/04/18 10:28 INR 1.4 08/04/18 10:28 APTT 35.6 Seconds (25.6-37.1) 08/04/18 10:28 - Constitutional Appears: Chronically Ill - Head Exam Head Exam: ATRAUMATIC, NORMAL INSPECTION, NORMOCEPHALIC - Eye Exam Eye Exam: EOMI, Normal appearance, PERRL Pupil Exam: NORMAL ACCOMODATION Additional comments: pupils sluggish - ENT Exam ENT Exam: Mucous Membranes Moist - Neck Exam Neck Exam: Normal Inspection - Respiratory Exam Respiratory Exam: Rhonchi - Cardiovascular Exam Cardiovascular Exam: Irregular Rhythm Additional comments: 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 - GI/Abdominal Exam GI & Abdominal Exam: Soft, Normal Bowel Sounds - Extremities Exam Extremities Exam: Normal Capillary Refill Additional comments: spontaneous, likely non-purposeful, movement of LUE. - Back Exam Back Exam: NORMAL INSPECTION - Neurological Exam Neurological Exam: Awake - Skin Skin Exam: Dry, Warm Assessment and Plan (1) Encephalopathy Assessment & Plan: 1.) Encephalopathy -Remains orally intubated. -Fever noted, on cooling blanket. Unclear if infectious or neurogenic etiology. -consults input appreciated. -prognosis remains poor. -continue current tx. Status: Acute
--- NOTE | 2018-08-07 02:53 | CP.PCM.PN ---
Subjective - Date & Time of Evaluation Date of Evaluation: 08/06/18 Time of Evaluation: 13:30 - Subjective Subjective: Pt seen and assessed at bedside. Currently undergoing hemodialysis, remains orally intubated. On exam, pt was responsive to verbal stimuli. Plan of care discussed with staff. Objective - Vital Signs/Intake and Output Vital Signs (last 24 hours): Temp Pulse Resp BP Pulse Ox 98 F 72 18 147/84 100 08/07/18 00:00 08/07/18 00:00 08/07/18 00:00 08/07/18 00:00 08/07/18 00:00 Intake and Output: 08/06/18 08/07/18 18:59 06:59 Intake Total 1125 428 Output Total 1900 Balance -775 428 - Medications Medications: Current Medications Acetaminophen (Tylenol 650mg/20.3ml Solution Ud) 650 mg PO Q6 PRN PRN Reason: Fever>100.4 F Last Admin: 08/04/18 13:06 Dose: 650 mg Albuterol/Ipratropium (Duoneb 3 Mg/0.5 Mg (3 Ml) Ud) 3 ml INH RQ6 [place] Last Admin: 08/07/18 02:41 Dose: 3 ml Allopurinol (Zyloprim) 300 mg PO DAILY [place] Last Admin: 08/06/18 08:43 Dose: 300 mg Calcium Acetate (Phoslo) 667 mg PO TID [place] Last Admin: 08/06/18 16:04 Dose: 667 mg Levetiracetam 500 mg/ Sodium (Chloride) 105 mls @ 210 mls/hr IVPB Q12 [place] Last Admin: 08/06/18 20:53 Dose: 210 mls/hr Vancomycin HCl 1 gm/ Sodium (Chloride) 250 mls @ 250 mls/hr IVPB MWF [facility]; Protocol Cefepime HCl 1 gm/ Sodium (Chloride) 100 mls @ 100 mls/hr IVPB DAILY [facility]; Protocol Last Admin: 08/06/18 08:44 Dose: 100 mls/hr Insulin Human Regular (Humulin R) 0 units SC ACCU-CHECK [facility]; Protocol Last Admin: 08/06/18 22:05 Dose: 2 u Labetalol HCl (Trandate) 20 mg IVP Q4 PRN PRN Reason: Systolic Blood Pressure Last Admin: 03/03/19 02:38 Dose: 20 mg Vitamin B Complex/Vit C/Folic Acid (Nephro-Everardo) 1 tab PO DAILY [place] Last Admin: 08/06/18 08:05 Dose: 1 tab - Labs Labs: 08/06/18 05:40 08/06/18 05:40 PT 16.2 Seconds (9.8-13.1) H 08/04/18 10:28 INR 1.4 08/04/18 10:28 APTT 35.6 Seconds (25.6-37.1) 08/04/18 10:28 - Constitutional Appears: Chronically Ill - Head Exam Head Exam: ATRAUMATIC, NORMAL INSPECTION, NORMOCEPHALIC - Eye Exam Eye Exam: EOMI, Normal appearance, PERRL Pupil Exam: NORMAL ACCOMODATION, PERRL - ENT Exam ENT Exam: Mucous Membranes Moist, Normal Exam - Neck Exam Neck Exam: Normal Inspection - Respiratory Exam Respiratory Exam: Rhonchi - Cardiovascular Exam Cardiovascular Exam: Irregular Rhythm 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 - GI/Abdominal Exam GI & Abdominal Exam: Soft, Normal Bowel Sounds - Extremities Exam Extremities Exam: Normal Capillary Refill, Normal Inspection Additional comments: moves left upper extremity. - Back Exam Back Exam: NORMAL INSPECTION - Neurological Exam Neurological Exam: Alert, Awake - Skin Skin Exam: Dry, Normal Color, Warm Assessment and Plan (1) Encephalopathy Assessment & Plan: 1.) Encephalopathy -Mild improvement in neurologic status, pt now able to follow basic verbal commands. -Left upper extremity movement appears to be more purposeful. -Remains orally intubated. -Previous fever noted, pt on cooling blanket. -No seizure activity observed. -consults input appreciated. -continue current tx. Status: Acute
[2018-08-07 04:44] LABS: ALB/GLOB RATIO 0.8 (1.0-2.1); ALBUMIN 3.2 g/dL (3.5-5.0); CALCIUM 8.9 mg/dL (8.4-10.2)
[2018-08-07 04:53] LABS: BASO % 0.2 % (0.0-2.0); EOS # 0.4 K/uL (0.0-0.7); EOS % 2.1 % (0.0-4.0); HEMOGLOBIN 9.8 g/dL (12.0-16.0); LYMPH # 0.6 K/uL (1.0-4.3); LYMPH % 2.8 % (20.0-40.0); MEAN CORPUSCULAR HEMOGLOBIN 23.9 pg (27.0-31.0); MEAN CORPUSCULAR HGB CONC 31.5 g/dL (33.0-37.0); MEAN PLATELET VOLUME 10.9 fl (7.2-11.7); MONO # 2.5 K/uL (0.0-0.8); MONO % 12.1 % (0.0-10.0); NEUT # 17.3 K/uL (1.8-7.0); NEUT % 82.8 % (50.0-75.0); NRBC % 0.1 % (0.0-0.0); RBC 4.1 Mil/uL (3.80-5.20); RED CELL DISTRIBUTION WIDTH 19.6 % (11.5-14.5); WHITE BLOOD COUNT 20.9 K/uL (4.8-10.8)
[2018-08-07 05:09] LABS: ABG ALLEN TEST YES; ARTERIAL BLOOD GAS O2 CONTENT 15.2 ML/dL (15-23); ARTERIAL BLOOD GAS PCO2 33 mm/Hg (35-45); ARTERIAL BLOOD GAS PO2 136 mm/Hg (80-100); ARTERIAL BLOOD GAS TCO2 26.7 mmol/L (22-28)
[2018-08-07] MEDS: levETIRAcetam 500 MG in Sodium Chloride 0.9% 100 ML IVPB SCH ×2 (08:20→20:37)
[2018-08-07] MEDS: Multivitamin Vitamin B Complex (Nephro-Vite) Tab PO SCH (08:21)
[2018-08-07] MEDS: Cefepime 1 GM in Sodium Chloride 0.9% 100 ML IVPB SCH ×2 (08:21→21:22)
--- NOTE | 2018-08-07 08:36 | CP.PCM.PN ---
Subjective - Date & Time of Evaluation Date of Evaluation: 08/07/18 Time of Evaluation: 08:36 - Subjective Subjective: MORE AWAKE AND ALERT RESPONDS APPROPRIATELY TO VERBAL COMMANDS STILL INTUBATED O2 SAT--100% Objective - Vital Signs/Intake and Output Vital Signs (last 24 hours): Temp Pulse Resp BP Pulse Ox 98.2 F 75 25 H 171/80 H 100 08/07/18 08:00 08/07/18 08:00 08/07/18 08:00 08/07/18 08:00 08/07/18 08:00 Intake and Output: 08/07/18 08/07/18 06:59 18:59 Intake Total 860 45 Output Total 650 100 Balance 210 -55 - Medications Medications: Current Medications Acetaminophen (Tylenol 650mg/20.3ml Solution Ud) 650 mg PO Q6 PRN PRN Reason: Fever>100.4 F Last Admin: 08/04/18 13:06 Dose: 650 mg Albuterol/Ipratropium (Duoneb 3 Mg/0.5 Mg (3 Ml) Ud) 3 ml INH RQ6 [place] Last Admin: 08/07/18 07:12 Dose: 3 ml Allopurinol (Zyloprim) 300 mg PO DAILY [place] Last Admin: 08/07/18 08:22 Dose: 300 mg Calcium Acetate (Phoslo) 667 mg PO TID [place] Last Admin: 08/07/18 08:21 Dose: 667 mg Levetiracetam 500 mg/ Sodium (Chloride) 105 mls @ 210 mls/hr IVPB Q12 [place] Last Admin: 08/07/18 08:20 Dose: 210 mls/hr Vancomycin HCl 1 gm/ Sodium (Chloride) 250 mls @ 250 mls/hr IVPB MWF [facility]; Protocol Last Admin: 08/07/18 08:22 Dose: 250 mls/hr Cefepime HCl 1 gm/ Sodium (Chloride) 100 mls @ 100 mls/hr IVPB DAILY [facility]; Protocol Last Admin: 08/07/18 08:21 Dose: 100 mls/hr Insulin Human Regular (Humulin R) 0 units SC ACCU-CHECK [facility]; Protocol Last Admin: 08/06/18 22:05 Dose: 2 u Labetalol HCl (Trandate) 20 mg IVP Q4 PRN PRN Reason: Systolic Blood Pressure Last Admin: 08/06/18 02:38 Dose: 20 mg Vitamin B Complex/Vit C/Folic Acid (Nephro-Everardo) 1 tab PO DAILY [place] Last Admin: 08/07/18 08:21 Dose: 1 tab - Labs Labs: 08/07/18 04:10 08/07/18 04:10 PT 16.2 Seconds (9.8-13.1) H 08/04/18 10:28 INR 1.4 08/04/18 10:28 APTT 35.6 Seconds (25.6-37.1) 08/04/18 10:28 - Constitutional Appears: No Acute Distress - Head Exam Head Exam: ATRAUMATIC, NORMAL INSPECTION, NORMOCEPHALIC - Eye Exam Eye Exam: EOMI, Normal appearance, PERRL Pupil Exam: NORMAL ACCOMODATION, PERRL - ENT Exam ENT Exam: Mucous Membranes Moist, Normal Exam - Neck Exam Neck Exam: Full ROM, Normal Inspection. absent: Lymphadenopathy - Respiratory Exam Respiratory Exam: Clear to Ausculation Bilateral Additional comments: ETT IN PLACE - Cardiovascular Exam Cardiovascular Exam: REGULAR RHYTHM, +S1, +S2. absent: Murmur - GI/Abdominal Exam GI & Abdominal Exam: Soft, Normal Bowel Sounds. absent: Tenderness - Rectal Exam Rectal Exam: NORMAL INSPECTION - Extremities Exam Extremities Exam: Full ROM, Normal Capillary Refill, Normal Inspection. absent: Joint Swelling, Pedal Edema - Back Exam Back Exam: NORMAL INSPECTION - Neurological Exam Neurological Exam: Alert, Awake, CN II-XII Intact, Oriented x3 - Psychiatric Exam Psychiatric exam: Normal Affect, Normal Mood - Skin Skin Exam: Dry, Intact, Normal Color, Warm Assessment and Plan - Assessment and Plan (Free Text) Assessment: RESP FAILURE IMPROVED Plan: BEGIN EXTUBATION PROTOCOL
--- NOTE | 2018-08-07 09:05 | CP.CCUPN ---
CCU Subjective - Physician Review Events Since Last Encounter (Free Text): 08/07/18 13:50 The patient was Seen/interviewed and examined by me at the bedside during ICU round, Medical records reviewed and Management issues were discussed and formulated with the house staff. Events reviewed Off sedations, orally intubated and mechanically ventilated. Awake, follows commands Comfortable, NAD She was olaced of CPAP trial this morning and doing well so far The plan to further decrease PS, get ABG, possible extubate today Resp nonlabored, strong spontaneous resp noted. Afebrile, NSR on the monitor 08/07/18 14:55 Brain MRI (08/02/18): 1. No acute intracranial abnormality. 2. Cystic encephalomalacia and gliosis in the left pickard radiata and basal ganglia, sequela of remote MCA territory infarction. 3. Mild chronic microangiopathic changes and mild age-related global parenchymal volume loss. 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 4. Pansinusitis, with a complicated retention cyst/polyp in the right maxillary sinus. Fluid in the sphenoid sinus may represent acute sinusitis in the appropriate clinical setting. Bilateral mastoid effusions. Critical Care Time Spent (in minutes): 45 CCU Objective - Vital Signs / Intake & Output Vital Signs (Last 4 hours): Vital Signs Temp Pulse Resp BP Pulse Ox 08/07/18 08:00 98.2 F 75 25 H 171/80 H 100 08/07/18 06:00 87 31 H 149/93 H 100 Intake and Output (Last 8hrs): Intake & Output 08/06/18 08/07/18 08/07/18 22:59 06:59 14:59 Intake Total 664 526 45 Output Total 1900 650 100 Balance -1236 -124 -55 Weight 223 lb 12.8 oz Intake: IV 4 16 Tube Feeding 360 360 45 Free Water Flush 300 150 Output: Urine 400 650 100 Urethral (Amaro) 400 650 100 Ultrafiltrate 1500 Other: # Bowel Movements 1 3 - Physical Exam Head: Positive for: Atraumatic, Normocephalic Pupils: Positive for: PERRL Extroacular Muscles: Positive for: EOMI Conjunctiva: Positive for: Normal Mouth: Positive for: Moist Mucous Membranes Nose (Internal): Positive for: Normal Inspection Neck: Positive for: Normal Range of Motion Respiratory/Chest: Positive for: Clear to Auscultation, Good Air Exchange, Accessory Muscle Use. Negative for: Respiratory Distress Abdomen: Positive for: Distention, Normal Bowel Sounds Upper Extremity: Positive for: Normal Inspection Lower Extremity: Positive for: Edema - Medications Active Medications: Active Medications Generic Name Dose Route Start Last Admin Trade Name Freq PRN Reason Stop Dose Admin Acetaminophen 650 mg 08/04/18 09:45 08/04/18 13:06 Tylenol 650mg/20.3ml Solution Ud PO 650 mg Q6 PRN Administration Fever>100.4 F Albuterol/Ipratropium 3 ml 08/02/18 14:30 08/07/18 07:12 Duoneb 3 Mg/0.5 Mg (3 Ml) Ud INH 3 ml RQ6 [place] Administration Allopurinol 300 mg 08/04/18 11:15 08/07/18 08:22 Zyloprim PO 300 mg DAILY [place] Administration Calcium Acetate 667 mg 07/31/18 09:00 08/07/18 08:21 Phoslo PO 667 mg TID [place] Administration Levetiracetam 500 mg/ Sodium 105 mls @ 210 mls/hr 07/30/18 09:00 08/07/18 08:20 Chloride IVPB 210 mls/hr Q12 [facility] Administration Vancomycin HCl 1 gm/ Sodium 250 mls @ 250 mls/hr 08/07/18 09:00 08/07/18 08:22 Chloride IVPB 250 mls/hr MWF [facility] Administration Protocol Cefepime HCl 1 gm/ Sodium 100 mls @ 100 mls/hr 08/05/18 09:00 08/07/18 08:21 Chloride IVPB 100 mls/hr DAILY [facility] Administration Protocol Insulin Human Regular 0 units 08/03/18 17:00 08/06/18 22:05 Humulin R SC 2 u ACCU-CHECK [place] Administration Protocol Labetalol HCl 20 mg 08/05/18 12:45 08/06/18 02:38 Trandate IVP 20 mg Q4 PRN Administration Systolic Blood Pressure Vitamin B Complex/Vit C/Folic Acid 1 tab 08/06/18 09:00 08/07/18 08:21 Nephro-Everardo PO 1 tab DAILY [place] Administration - Patient Studies Lab Studies: Lab Studies 08/07/18 08/07/18 08/07/18 Range/Units 06:06 04:10 04:10 WBC 20.9 H (4.8-10.8) K/uL RBC 4.10 (3.80-5.20) Mil/uL Hgb 9.8 L (12.0-16.0) g/dL Hct 31.2 L (34.0-47.0) % MCV 76.0 L (81.0-99.0) fl MCH 23.9 L (27.0-31.0) pg MCHC 31.5 L (33.0-37.0) g/dL RDW 19.6 H (11.5-14.5) % Plt Count 169 (130-400) K/uL MPV 10.9 (7.2-11.7) fl Neut % (Auto) 82.8 H (50.0-75.0) % Lymph % (Auto) 2.8 L (20.0-40.0) % [place] % (Auto) 12.1 H (0.0-10.0) % Eos % (Auto) 2.1 (0.0-4.0) % Baso % (Auto) 0.2 (0.0-2.0) % Neut # (Auto) 17.3 H (1.8-7.0) K/uL Lymph # (Auto) 0.6 L (1.0-4.3) K/uL [place] # (Auto) 2.5 H (0.0-0.8) K/uL Eos # (Auto) 0.4 (0.0-0.7) K/uL Baso # (Auto) 0.0 (0.0-0.2) K/uL Neutrophils % (Manual) (42-75) % Lymphocytes % (Manual) (20-50) % Monocytes % (Manual) (0-10) % Eosinophils % (Manual) (0-7) % Platelet Estimate (NORMAL) Hypochromasia (manual) Anisocytosis (manual) Ovalocytes pCO2 (35-45) mm/Hg pO2 (80-100) mm/Hg HCO3 (21-28) mmol/L ABG pH (7.35-7.45) ABG Total CO2 (22-28) mmol/L ABG O2 Saturation (95-98) % ABG O2 Content (15-23) ML/dL ABG Base Excess (-2.0-3.0) mmol/L ABG Hemoglobin (11.7-17.4) g/dL ABG Carboxyhemoglobin (0.5-1.5) % POC ABG HHb (Measured) (0.0-5.0) % ABG Methemoglobin (0.0-3.0) % ABG O2 Capacity (16-24) mL/dL [place] Test A-a O2 Difference mm/Hg Hgb O2 Saturation (95.0-98.0) % Vent Mode Mechanical Rate FiO2 % Tidal Volume PEEP Sodium 139 (132-148) mmol/l Potassium 3.0 L (3.6-5.0) MMOL/L Chloride 99 (98-107) mmol/L Carbon Dioxide 27 (22-30) mmol/L Anion Gap 16 (10-20) BUN 40 H (7-17) mg/dl Creatinine 3.4 H (0.7-1.2) mg/dl Est GFR ( Amer) 17 Est GFR (Non-Af Amer) 14 POC Glucose (mg/dL) 149 H (65-110) mg/dL Random Glucose 151 H (65-105) mg/dL Calcium 8.9 (8.4-10.2) mg/dL Total Bilirubin 1.2 (0.2-1.3) mg/dl AST 63 H (14-36) U/L ALT 349 H D (9-52) U/L Alkaline Phosphatase 123 (38-126) U/L Total Protein 7.4 (6.3-8.2) G/DL Albumin 3.2 L (3.5-5.0) g/dL Globulin 4.1 H (2.2-3.9) gm/dL Albumin/Globulin Ratio 0.8 L (1.0-2.1) 08/07/18 08/06/18 08/06/18 Range/Units 04:00 22:37 16:23 WBC (4.8-10.8) K/uL RBC (3.80-5.20) Mil/uL Hgb (12.0-16.0) g/dL Hct (34.0-47.0) % MCV (81.0-99.0) fl MCH (27.0-31.0) pg MCHC (33.0-37.0) g/dL RDW (11.5-14.5) % Plt Count (130-400) K/uL MPV (7.2-11.7) fl Neut % (Auto) (50.0-75.0) % Lymph % (Auto) (20.0-40.0) % [place] % (Auto) (0.0-10.0) % Eos % (Auto) (0.0-4.0) % Baso % (Auto) (0.0-2.0) % Neut # (Auto) (1.8-7.0) K/uL Lymph # (Auto) (1.0-4.3) K/uL [place] # (Auto) (0.0-0.8) K/uL Eos # (Auto) (0.0-0.7) K/uL Baso # (Auto) (0.0-0.2) K/uL Neutrophils % (Manual) (42-75) % Lymphocytes % (Manual) (20-50) % Monocytes % (Manual) (0-10) % Eosinophils % (Manual) (0-7) % Platelet Estimate (NORMAL) Hypochromasia (manual) Anisocytosis (manual) Ovalocytes pCO2 33 L (35-45) mm/Hg pO2 136 H (80-100) mm/Hg HCO3 27.0 (21-28) mmol/L ABG pH 7.50 H (7.35-7.45) ABG Total CO2 26.7 (22-28) mmol/L ABG O2 Saturation 101.0 H (95-98) % ABG O2 Content 15.2 (15-23) ML/dL ABG Base Excess 2.7 (-2.0-3.0) mmol/L ABG Hemoglobin 11.0 L (11.7-17.4) g/dL ABG Carboxyhemoglobin 2.1 H (0.5-1.5) % POC ABG HHb (Measured) -1.0 L (0.0-5.0) % ABG Methemoglobin 2.3 (0.0-3.0) % ABG O2 Capacity 15.0 L (16-24) mL/dL [place] Test Yes A-a O2 Difference 108.0 mm/Hg Hgb O2 Saturation 96.6 (95.0-98.0) % Vent Mode A/c Mechanical Rate 14 FiO2 40.0 % Tidal Volume 450 PEEP 5 Sodium (132-148) mmol/l Potassium (3.6-5.0) MMOL/L Chloride (98-107) mmol/L Carbon Dioxide (22-30) mmol/L Anion Gap (10-20) BUN (7-17) mg/dl Creatinine (0.7-1.2) mg/dl Est GFR ( Amer) Est GFR (Non-Af Amer) POC Glucose (mg/dL) 174 H 188 H (65-110) mg/dL Random Glucose (65-105) mg/dL Calcium (8.4-10.2) mg/dL Total Bilirubin (0.2-1.3) mg/dl AST (14-36) U/L ALT (9-52) U/L Alkaline Phosphatase (38-126) U/L Total Protein (6.3-8.2) G/DL Albumin (3.5-5.0) g/dL Globulin (2.2-3.9) gm/dL Albumin/Globulin Ratio (1.0-2.1) 08/06/18 08/06/18 08/06/18 Range/Units 11:16 05:40 05:01 WBC (4.8-10.8) K/uL RBC (3.80-5.20) Mil/uL Hgb (12.0-16.0) g/dL Hct (34.0-47.0) % MCV (81.0-99.0) fl MCH (27.0-31.0) pg MCHC (33.0-37.0) g/dL RDW (11.5-14.5) % Plt Count (130-400) K/uL MPV (7.2-11.7) fl Neut % (Auto) (50.0-75.0) % Lymph % (Auto) (20.0-40.0) % [place] % (Auto) (0.0-10.0) % Eos % (Auto) (0.0-4.0) % Baso % (Auto) (0.0-2.0) % Neut # (Auto) (1.8-7.0) K/uL Lymph # (Auto) (1.0-4.3) K/uL [place] # (Auto) (0.0-0.8) K/uL Eos # (Auto) (0.0-0.7) K/uL Baso # (Auto) (0.0-0.2) K/uL Neutrophils % (Manual) 88 H (42-75) % Lymphocytes % (Manual) 2 L (20-50) % Monocytes % (Manual) 9 (0-10) % Eosinophils % (Manual) 1 (0-7) % Platelet Estimate Normal (NORMAL) Hypochromasia (manual) Slight Anisocytosis (manual) Slight Ovalocytes Slight pCO2 29 L (35-45) mm/Hg pO2 225 H (80-100) mm/Hg HCO3 27.0 (21-28) mmol/L ABG pH 7.54 H (7.35-7.45) ABG Total CO2 25.7 (22-28) mmol/L ABG O2 Saturation 100.4 H (95-98) % ABG O2 Content 14.2 L (15-23) ML/dL ABG Base Excess 2.6 (-2.0-3.0) mmol/L ABG Hemoglobin 10.0 L (11.7-17.4) g/dL ABG Carboxyhemoglobin 1.3 (0.5-1.5) % POC ABG HHb (Measured) -0.4 L (0.0-5.0) % ABG Methemoglobin 1.7 (0.0-3.0) % ABG O2 Capacity 14.1 L (16-24) mL/dL [place] Test Yes A-a O2 Difference 95.0 mm/Hg Hgb O2 Saturation 97.4 (95.0-98.0) % Vent Mode A/c Mechanical Rate 14 FiO2 50.0 % Tidal Volume 450 PEEP 5 Sodium (132-148) mmol/l Potassium (3.6-5.0) MMOL/L Chloride (98-107) mmol/L Carbon Dioxide (22-30) mmol/L Anion Gap (10-20) BUN (7-17) mg/dl Creatinine (0.7-1.2) mg/dl Est GFR ( Amer) Est GFR (Non-Af Amer) POC Glucose (mg/dL) 220 H (65-110) mg/dL Random Glucose (65-105) mg/dL Calcium (8.4-10.2) mg/dL Total Bilirubin (0.2-1.3) mg/dl AST (14-36) U/L ALT (9-52) U/L Alkaline Phosphatase (38-126) U/L Total Protein (6.3-8.2) G/DL Albumin (3.5-5.0) g/dL Globulin (2.2-3.9) gm/dL Albumin/Globulin Ratio (1.0-2.1) Laboratory Results - last 24 hr 08/06/18 08/06/18 08/06/18 05:01 05:40 11:16 WBC RBC Hgb Hct MCV MCH MCHC RDW Plt Count MPV Neut % (Auto) Lymph % (Auto) [place] % (Auto) Eos % (Auto) Baso % (Auto) Neut # (Auto) Lymph # (Auto) [place] # (Auto) Eos # (Auto) Baso # (Auto) Neutrophils % (Manual) 88 H Lymphocytes % (Manual) 2 L Monocytes % (Manual) 9 Eosinophils % (Manual) 1 Platelet Estimate Normal Hypochromasia (manual) Slight Anisocytosis (manual) Slight Ovalocytes Slight pCO2 29 L pO2 225 H HCO3 27.0 ABG pH 7.54 H ABG Total CO2 25.7 ABG O2 Saturation 100.4 H ABG O2 Content 14.2 L ABG Base Excess 2.6 ABG Hemoglobin 10.0 L ABG Carboxyhemoglobin 1.3 POC ABG HHb (Measured) -0.4 L ABG Methemoglobin 1.7 ABG O2 Capacity 14.1 L [place] Test Yes A-a O2 Difference 95.0 Hgb O2 Saturation 97.4 Vent Mode A/c Mechanical Rate 14 FiO2 50.0 Tidal Volume 450 PEEP 5 Sodium Potassium Chloride Carbon Dioxide Anion Gap BUN Creatinine Est GFR ( Amer) Est GFR (Non-Af Amer) POC Glucose (mg/dL) 220 H Random Glucose Calcium Total Bilirubin AST ALT Alkaline Phosphatase Total Protein Albumin Globulin Albumin/Globulin Ratio 08/06/18 08/06/18 08/07/18 16:23 22:37 04:00 WBC RBC Hgb Hct MCV MCH MCHC RDW Plt Count MPV Neut % (Auto) Lymph % (Auto) [place] % (Auto) Eos % (Auto) Baso % (Auto) Neut # (Auto) Lymph # (Auto) [place] # (Auto) Eos # (Auto) Baso # (Auto) Neutrophils % (Manual) Lymphocytes % (Manual) Monocytes % (Manual) Eosinophils % (Manual) Platelet Estimate Hypochromasia (manual) Anisocytosis (manual) Ovalocytes pCO2 33 L pO2 136 H HCO3 27.0 ABG pH 7.50 H ABG Total CO2 26.7 ABG O2 Saturation 101.0 H ABG O2 Content 15.2 ABG Base Excess 2.7 ABG Hemoglobin 11.0 L ABG Carboxyhemoglobin 2.1 H POC ABG HHb (Measured) -1.0 L ABG Methemoglobin 2.3 ABG O2 Capacity 15.0 L [place] Test Yes A-a O2 Difference 108.0 Hgb O2 Saturation 96.6 Vent Mode A/c Mechanical Rate 14 FiO2 40.0 Tidal Volume 450 PEEP 5 Sodium Potassium Chloride Carbon Dioxide Anion Gap BUN Creatinine Est GFR ( Amer) Est GFR (Non-Af Amer) POC Glucose (mg/dL) 188 H 174 H Random Glucose Calcium Total Bilirubin AST ALT Alkaline Phosphatase Total Protein Albumin Globulin Albumin/Globulin Ratio 08/07/18 08/07/18 08/07/18 04:10 04:10 06:06 WBC 20.9 H RBC 4.10 Hgb 9.8 L Hct 31.2 L MCV 76.0 L MCH 23.9 L MCHC 31.5 L RDW 19.6 H Plt Count 169 MPV 10.9 Neut % (Auto) 82.8 H Lymph % (Auto) 2.8 L [place] % (Auto) 12.1 H Eos % (Auto) 2.1 Baso % (Auto) 0.2 Neut # (Auto) 17.3 H Lymph # (Auto) 0.6 L [place] # (Auto) 2.5 H Eos # (Auto) 0.4 Baso # (Auto) 0.0 Neutrophils % (Manual) Lymphocytes % (Manual) Monocytes % (Manual) Eosinophils % (Manual) Platelet Estimate Hypochromasia (manual) Anisocytosis (manual) Ovalocytes pCO2 pO2 HCO3 ABG pH ABG Total CO2 ABG O2 Saturation ABG O2 Content ABG Base Excess ABG Hemoglobin ABG Carboxyhemoglobin POC ABG HHb (Measured) ABG Methemoglobin ABG O2 Capacity [place] Test A-a O2 Difference Hgb O2 Saturation Vent Mode Mechanical Rate FiO2 Tidal Volume PEEP Sodium 139 Potassium 3.0 L Chloride 99 Carbon Dioxide 27 Anion Gap 16 BUN 40 H Creatinine 3.4 H Est GFR ( Amer) 17 Est GFR (Non-Af Amer) 14 POC Glucose (mg/dL) 149 H Random Glucose 151 H Calcium 8.9 Total Bilirubin 1.2 AST 63 H ALT 349 H D Alkaline Phosphatase 123 Total Protein 7.4 Albumin 3.2 L Globulin 4.1 H Albumin/Globulin Ratio 0.8 L Radiology Impressions: Radiology Impressions Chest X-Ray 08/06/18 04:14 IMPRESSION: Stable tubes and lines. Stable pulmonary vascular congestion small bilateral pleural effusions. No significant interval change. Fingerstick Blood Sugar Results: 220 Review of Systems - Review of Systems Systems not reviewed;Unavailable: Intubated Critical Care Progress Note - Nutrition Nutrition: Nutrition Category Date Time Status NPO Diet [DIET] Diets 07/31/18 Breakfast Active Assessment/Plan (1) Toxic metabolic encephalopathy Current Visit: Yes Status: Acute Priority: High Comment: Patient clinically improved, she is more alert and awake now sepsis under control renal failure managed with HD No seizures (2) Acute respiratory failure with hypoxia Current Visit: Yes Status: Acute Priority: High Comment: Vent weaning in progress Patient has been tolerating pressure support trial today and the plan is to follow ABG and possible extubation today Minimal respiratory secretion (3) Accelerated essential hypertension Current Visit: Yes Status: Acute Priority: High (4) Aspiration pneumonia Current Visit: Yes Status: Acute Comment: Continue current antibiotic with IV vancomycin and IV cefepime Maintain map 65-75 (5) JORGE A (acute kidney injury) Current Visit: Yes Status: Acute Priority: High Comment: Improving Acute kidney injury likely multifactorial due to circulatory failure and sepsis HD as per renal - Assessment and Plan (Free Text) Assessment: GI/DVT PPX Code Status: Full code Total critical care time 42 minutes
--- NOTE | 2018-08-07 09:19 | RAD ---
Date of service: 08/07/2018 HISTORY: Patient intubated COMPARISON: Portable chest 08/06/2018. FINDINGS: LUNGS: Endotracheal and nasogastric tubes are unchanged in position as well as right temporary dialysis catheter. Prosthetic cardiac valve reiterated. Improved aeration is seen at the mid to inferior right lung zone reflecting improved atelectasis/infiltrate. No definite pulmonary vascular congestion appreciable at this time. PLEURA: Trace right pleural effusion is in question. None is seen at the right. No pneumothorax bilaterally. CARDIOVASCULAR: Calcific atherosclerotic changes are seen related to the thoracic aorta. Normal cardiac size. Prior pulmonary vascular congestion resolved. OSSEOUS STRUCTURES: No significant abnormalities. VISUALIZED UPPER ABDOMEN: Normal. OTHER FINDINGS: None. IMPRESSION: Trace residual right pleural effusion with limited residual airspace disease right base and none on the left. Prior pulmonary vascular congestion appears resolved.
--- NOTE | 2018-08-07 09:59 | CP.PCM.PN ---
Subjective - Date & Time of Evaluation Date of Evaluation: 08/07/18 Time of Evaluation: 10:00 - Subjective Subjective: Patient more awake and she looks much better. Vital signs noted to be stable Urine output improving Blood tests and electrolytes reviewed and showed hypokalemia with potassium supplement Objective - Vital Signs/Intake and Output Vital Signs (last 24 hours): Temp Pulse Resp BP Pulse Ox 98.2 F 75 25 H 171/80 H 100 08/07/18 08:00 08/07/18 08:00 08/07/18 08:00 08/07/18 08:00 08/07/18 08:00 Intake and Output: 08/07/18 08/07/18 06:59 18:59 Intake Total 860 45 Output Total 650 100 Balance 210 -55 - Medications Medications: Current Medications Acetaminophen (Tylenol 650mg/20.3ml Solution Ud) 650 mg PO Q6 PRN PRN Reason: Fever>100.4 F Last Admin: 08/04/18 13:06 Dose: 650 mg Albuterol/Ipratropium (Duoneb 3 Mg/0.5 Mg (3 Ml) Ud) 3 ml INH RQ6 [facility] Last Admin: 08/07/18 07:12 Dose: 3 ml Allopurinol (Zyloprim) 300 mg PO DAILY [facility] Last Admin: 08/07/18 08:22 Dose: 300 mg Calcium Acetate (Phoslo) 667 mg PO TID [facility] Last Admin: 08/07/18 08:21 Dose: 667 mg Levetiracetam 500 mg/ Sodium (Chloride) 105 mls @ 210 mls/hr IVPB Q12 [facility] Last Admin: 08/07/18 08:20 Dose: 210 mls/hr Vancomycin HCl 1 gm/ Sodium (Chloride) 250 mls @ 250 mls/hr IVPB MWF [facility]; Pro tocol Last Admin: 08/07/18 08:22 Dose: 250 mls/hr Cefepime HCl 1 gm/ Sodium (Chloride) 100 mls @ 100 mls/hr IVPB DAILY [facility]; Protocol Last Admin: 08/07/18 08:21 Dose: 100 mls/hr Potassium Chloride (Potassium Cl 10meq/50ml Sterile Water) 50 mls @ 50 mls/hr IVPB Q1 [facility] Stop: 08/07/18 11:59 Insulin Human Regular (Humulin R) 0 units SC ACCU-CHECK [facility]; Protocol Last Admin: 08/06/18 22:05 Dose: 2 u Labetalol HCl (Trandate) 20 mg IVP Q4 PRN PRN Reason: Systolic Blood Pressure Last Admin: 08/06/18 02:38 Dose: 20 mg Vitamin B Complex/Vit C/Folic Acid (Nephro-Everardo) 1 tab PO DAILY [facility] Last Admin: 08/07/18 08:21 Dose: 1 tab - Labs Labs: 08/07/18 04:10 08/07/18 04:10 PT 16.2 Seconds (9.8-13.1) H 08/04/18 10:28 INR 1.4 08/04/18 10:28 APTT 35.6 Seconds (25.6-37.1) 08/04/18 10:28 - Constitutional Appears: No Acute Distress - Eye Exam Eye Exam: Conjunctival injection - ENT Exam ENT Exam: Mucous Membranes Moist - Neck Exam Neck Exam: absent: Lymphadenopathy - Respiratory Exam Respiratory Exam: NORMAL BREATHING PATTERN. absent: Chest Wall Tenderness - Cardiovascular Exam Cardiovascular Exam: absent: Gallop, JVD, Rubs - GI/Abdominal Exam GI & Abdominal Exam: Soft, Normal Bowel Sounds - Neurological Exam Neurological Exam: Awake - Skin Skin Exam: absent: Cyanosis Assessment and Plan (1) JORGE A (acute kidney injury) Assessment & Plan: Assessment: critical Altered mental status Respiratory failure/intubated Acute renal failure/acute kidney injury related to multifactorial including sepsis. Diabetes mellitus and history of hypertension history of CVA. Patient remained obtunded with encephalopathy hyperurecemia Hyperphosphatemia Shock liver Nephrotic syndrome proteinuria with 7 gram proteinuria based on protein to creatinine ratio Recommendation Patient improving more awake responded very good Patient did have hemodialysis yesterday Potassium is 3.0 today and need potassium supplement Hold dialysis today and rescheduled for tomorrow pending BMP in the morning Liver function improving Antibiotics as per primary team considering GFR Patient remain intubated Urine output improving Status: Acute (2) Elevated liver enzymes Status: Acute (3) Elevated troponin level Status: Acute (4) Leukocytosis Status: Acute (5) Sepsis Status: Acute
[2018-08-07] MEDS: Potassium CL 10 MEQ/50 ML 50 ML IVPB SCH ×2 (10:02→11:47)
[2018-08-07] MEDS: Insulin Regular 100 units/ml SC SCH ×3 (11:46→23:00)
--- NOTE | 2018-08-07 12:13 | CP.PCM.PN ---
Subjective - Date & Time of Evaluation Date of Evaluation: 08/04/18 Time of Evaluation: 11:00 - Subjective Subjective: Remains intubated. WBC is 19. Objective - Vital Signs/Intake and Output Vital Signs (last 24 hours): Temp Pulse Resp BP Pulse Ox 98.9 F 81 30 H 153/73 H 100 08/07/18 12:00 08/07/18 12:00 08/07/18 12:00 08/07/18 12:00 08/07/18 12:00 Intake and Output: 08/07/18 08/07/18 06:59 18:59 Intake Total 860 1075 Output Total 650 250 Balance 210 825 - Medications Medications: Current Medications Acetaminophen (Tylenol 650mg/20.3ml Solution Ud) 650 mg PO Q6 PRN PRN Reason: Fever>100.4 F Last Admin: 08/04/18 13:06 Dose: 650 mg Albuterol/Ipratropium (Duoneb 3 Mg/0.5 Mg (3 Ml) Ud) 3 ml INH RQ6 [facility] Last Admin: 08/07/18 07:12 Dose: 3 ml Allopurinol (Zyloprim) 300 mg PO DAILY [facility] Last Admin: 08/07/18 08:22 Dose: 300 mg Calcium Acetate (Phoslo) 667 mg PO TID [facility] Last Admin: 08/07/18 12:04 Dose: 667 mg Levetiracetam 500 mg/ Sodium (Chloride) 105 mls @ 210 mls/hr IVPB Q12 [facility] Last Admin: 08/07/18 08:20 Dose: 210 mls/hr Vancomycin HCl 1 gm/ Sodium (Chloride) 250 mls @ 250 mls/hr IVPB MWF [facility]; Protocol Last Admin: 08/07/18 08:22 Dose: 250 mls/hr Cefepime HCl 1 gm/ Sodium (Chloride) 100 mls @ 100 mls/hr IVPB DAILY [facility]; Protocol Last Admin: 08/07/18 08:21 Dose: 100 mls/hr Insulin Human Regular (Humulin R) 0 units SC ACCU-CHECK [facility]; Protocol Last Admin: 08/07/18 11:46 Dose: 1 u Labetalol HCl (Trandate) 20 mg IVP Q4 PRN PRN Reason: Systolic Blood Pressure Last Admin: 08/06/18 02:38 Dose: 20 mg Vitamin B Complex/Vit C/Folic Acid (Nephro-Everardo) 1 tab PO DAILY [facility] Last Admin: 08/07/18 08:21 Dose: 1 tab - Labs Labs: 08/07/18 04:10 08/07/18 04:10 PT 16.2 Seconds (9.8-13.1) H 08/04/18 10:28 INR 1.4 08/04/18 10:28 APTT 35.6 Seconds (25.6-37.1) 08/04/18 10:28 - Respiratory Exam Respiratory Exam: Decreased Breath Sounds - Cardiovascular Exam Cardiovascular Exam: Tachycardia - GI/Abdominal Exam GI & Abdominal Exam: Normal Bowel Sounds Assessment and Plan (1) Respiratory failure Status: Acute (2) Sepsis Status: Acute (3) Toxic metabolic encephalopathy Status: Acute - Assessment and Plan (Free Text) Plan: Con tmeds Cont vent support follow up with resp and ID. Folow up ca nd S reports.
--- NOTE | 2018-08-07 13:30 | CP.PCM.PN ---
Subjective - Date & Time of Evaluation Date of Evaluation: 08/07/18 Time of Evaluation: 13:00 - Subjective Subjective: Neuro Follow-Up Note: Mrs. Landis was evaluated this afternoon in the ICU. No family at bedside during time of exam. She remains intubated, off sedation. Today, pt is awake, able to follow commands, and is able to answer "yes" and "no" by nodding and shaking her head. Neurologically improving since I last saw her on Tuesday. ROS is limited, however, pt denies h/a, dizziness, visual changes, chest pain, nausea; admits to abd pain. Objective - Vital Signs/Intake and Output Vital Signs (last 24 hours): Temp Pulse Resp BP Pulse Ox 98.9 F 81 30 H 153/73 H 100 08/07/18 12:00 08/07/18 12:00 08/07/18 12:00 08/07/18 12:00 08/07/18 12:00 Intake and Output: 08/07/18 08/07/18 06:59 18:59 Intake Total 860 1075 Output Total 650 250 Balance 210 825 - Medications Medications: Current Medications Acetaminophen (Tylenol 650mg/20.3ml Solution Ud) 650 mg PO Q6 PRN PRN Reason: Fever>100.4 F Last Admin: 08/04/18 13:06 Dose: 650 mg Albuterol/Ipratropium (Duoneb 3 Mg/0.5 Mg (3 Ml) Ud) 3 ml INH RQ6 [facility] Last Admin: 08/07/18 13:05 Dose: 3 ml Allopurinol (Zyloprim) 300 mg PO DAILY [facility] Last Admin: 08/07/18 08:22 Dose: 300 mg Calcium Acetate (Phoslo) 667 mg PO TID [facility] Last Admin: 08/07/18 12:04 Dose: 667 mg Levetiracetam 500 mg/ Sodium (Chloride) 105 mls @ 210 mls/hr IVPB Q12 [facility] Last Admin: 08/07/18 08:20 Dose: 210 mls/hr Vancomycin HCl 1 gm/ Sodium (Chloride) 250 mls @ 250 mls/hr IVPB MWF [facility]; Protocol Last Admin: 08/07/18 08:22 Dose: 250 mls/hr Cefepime HCl 1 gm/ Sodium (Chloride) 100 mls @ 100 mls/hr IVPB DAILY [facility]; Protocol Last Admin: 08/07/18 08:21 Dose: 100 mls/hr Insulin Human Regular (Humulin R) 0 units SC ACCU-CHECK [facility]; Protocol Last Admin: 08/07/18 11:46 Dose: 1 u Labetalol HCl (Trandate) 20 mg IVP Q4 PRN PRN Reason: Systolic Blood Pressure Last Admin: 08/06/18 02:38 Dose: 20 mg Vitamin B Complex/Vit C/Folic Acid (Nephro-Everardo) 1 tab PO DAILY [facility] Last Admin: 08/07/18 08:21 Dose: 1 tab - Labs Labs: 08/07/18 04:10 08/07/18 04:10 PT 16.2 Seconds (9.8-13.1) H 08/04/18 10:28 INR 1.4 08/04/18 10:28 APTT 35.6 Seconds (25.6-37.1) 08/04/18 10:28 - Constitutional Appears: Other (intubated; off sedation; able to follow commands; nods/shakes head in response to questions.) - Head Exam Head Exam: NORMAL INSPECTION, NORMOCEPHALIC - Eye Exam Eye Exam: EOMI, Normal appearance, PERRL. absent: Nystagmus Pupil Exam: NORMAL ACCOMODATION, PERRL Additional comments: pupils reactive, approx 3 mm b/l - ENT Exam ENT Exam: Mucous Membranes Moist Additional comments: intubated - Neck Exam Neck Exam: Normal Inspection - Respiratory Exam Respiratory Exam: absent: NORMAL BREATHING PATTERN (intubated) - GI/Abdominal Exam GI & Abdominal Exam: Tenderness (generalized abd tenderness; pt grimaces when abd palpated; OGT in place.) - Extremities Exam Extremities Exam: absent: Calf Tenderness, Full ROM, Pedal Edema Additional comments: RUE and RLE flaccid 2/2 previous CVA Able to move LUE and LLE (LUE ROM limited as pt has soft wrist restraints on). Able to raise her LLE for at least 3-4 seconds. - Neurological Exam Neurological Exam: Alert, Awake, CN II-XII Intact Neuro motor strength exam: Left Upper Extremity: 2/1 (has soft wrist restraints on; axminster rug setter 1/5), Right Upper Extremity: 0 (flaccid), Left Lower Extremity: 3 (plantar flexion 3/5), Right Lower Extremity: 0 (flaccid) Additional comments: Pt is intubated, off sedation; awake, alert, able to follow commands. Pupils equal and reactive. RUE and RLE flaccid 2/2 previous CVA Able to move LUE and LLE (LUE ROM limited as pt has soft wrist restraints on). Attempts to squeeze my hand with left hand, but weakened axminster rug setter noted. Able to raise her LLE for at least 3-4 seconds. Sensation intact b/l No tremors Toes down doing left side; plantar response difficult to elicit on right side. - Psychiatric Exam Additional comments: nonverbal 2/2 intubated; follows commands; cooperative; calm - Skin Skin Exam: Normal Color Assessment and Plan (1) Toxic metabolic encephalopathy Assessment & Plan: Imaging reviewed: -Brain MRI (08/02/18): 1. No acute intracranial abnormality. 2. Cystic encephalomalacia and gliosis in the left pickard radiata and basal ganglia, sequela of remote MCA territory infarction. 3. Mild chronic microangiopathic changes and mild age-related global parenchymal volume loss. 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 4. Pansinusitis, with a complicated retention cyst/polyp in the right maxillary sinus. Fluid in the sphenoid sinus may represent acute sinusitis in the appropriate clinical setting. Bilateral mastoid effusions. -EEG (repeat; 08/01/18): This is an abnormal EEG record that demonstrate the presence of severe non specific diffuse disturbance of cortical activity, this is keeping with a diffuse abbasi matter dysfunction, these findings re not specific. These type of EEG is usually seen in toxic metabolic encephalopathies , hypoxic-ischemic brain injury among others, clinical correlation is recommended. The EEG look similar to the previous video EEG study of 07/29, 07/30. No seizures. Patient is not in status epilepticus. -CT Head (07/30/18): No acute intracranial abnormalities. No significant findings to account for the clinical presentation. No significant interval change compared to the prior examination(s). -CT Head (07/28/18): No acute intracranial abnormalities. No significant findings to account for the clinical presentation. Extensive postoperative changes described above. -EEG (07/30/18): shows burst suppression per Dr. Novak. -ECHO (07/30/18) done: 50-55% -MRA Head/Neck was initially unable to be done (day of intubation)--I reordered it; it is still pending--will f/u with results once done. -Carotid and vertebral U/S ordered but cannot be done at bedside and room in the dept cannot accommodate vent. -We still recommend for Cardiology to do a ANNETTE to r/o septic endocarditis. -Possible extubation today per Dr. Alvarado. -Continue current medications and treatment of other acute medical issues. -Continue ICU management. -Discussed with Dr. Alvarado and primary RN. -Notify neuro team of any acute changes to pt's condition. Diane Linder, RADHA, [employer] Case discussed with Dr. Santiago Status: Acute
[2018-08-07 14:37] LABS: ABG ALLEN TEST YES; ARTERIAL BLOOD GAS HCO3 29.5 mmol/L (21-28); ARTERIAL BLOOD GAS O2 SAT 100.7 % (95-98); ARTERIAL BLOOD GAS PCO2 33 mm/Hg (35-45); ARTERIAL BLOOD GAS PH 7.54 (7.35-7.45); ARTERIAL BLOOD GAS PO2 139 mm/Hg (80-100); ARTERIAL BLOOD GAS TCO2 29.2 mmol/L (22-28)
--- NOTE | 2018-08-07 17:16 | CP.PCM.PN ---
Subjective - Date & Time of Evaluation Date of Evaluation: 08/07/18 Time of Evaluation: 08:00 - Subjective Subjective: improved mental state awake alert responsive denies headache still with fever and leukocytosis MRI show sinusitis LFT's up Objective - Vital Signs/Intake and Output Vital Signs (last 24 hours): Temp Pulse Resp BP Pulse Ox 100.4 F H 82 26 H 123/67 92 L 08/07/18 16:00 08/07/18 16:00 08/07/18 16:00 08/07/18 16:00 08/07/18 16:00 Intake and Output: 08/07/18 08/07/18 06:59 18:59 Intake Total 860 1255 Output Total 650 450 Balance 210 805 - Medications Medications: Current Medications Acetaminophen (Tylenol 650mg/20.3ml Solution Ud) 650 mg PO Q6 PRN PRN Reason: Fever>100.4 F Last Admin: 08/04/18 13:06 Dose: 650 mg Albuterol/Ipratropium (Duoneb 3 Mg/0.5 Mg (3 Ml) Ud) 3 ml INH RQ6 [facility] Last Admin: 08/07/18 13:05 Dose: 3 ml Allopurinol (Zyloprim) 300 mg PO DAILY [facility] Last Admin: 08/07/18 08:22 Dose: 300 mg Calcium Acetate (Phoslo) 667 mg PO TID [facility] Last Admin: 08/07/18 16:45 Dose: 667 mg Dimethicone (Proshield Plus Skin Protectant) 1 applic TOP Q8 [facility] Levetiracetam 500 mg/ Sodium (Chloride) 105 mls @ 210 mls/hr IVPB Q12 [facility] Last Admin: 08/07/18 08:20 Dose: 210 mls/hr Vancomycin HCl 1 gm/ Sodium (Chloride) 250 mls @ 250 mls/hr IVPB MWF [facility]; Protocol Last Admin: 08/07/18 08:22 Dose: 250 mls/hr Cefepime HCl 1 gm/ Sodium (Chloride) 100 mls @ 100 mls/hr IVPB DAILY [facility]; Protocol Last Admin: 08/07/18 08:21 Dose: 100 mls/hr Insulin Human Regular (Humulin R) 0 units SC ACCU-CHECK [facility]; Protocol Last Admin: 08/07/18 16:45 Dose: 2 u Labetalol HCl (Trandate) 20 mg IVP Q4 PRN PRN Reason: Systolic Blood Pressure Last Admin: 08/06/18 02:38 Dose: 20 mg Vitamin B Complex/Vit C/Folic Acid (Nephro-Everardo) 1 tab PO DAILY [facility] Last Admin: 08/07/18 08:21 Dose: 1 tab - Labs Labs: 08/07/18 04:10 08/07/18 04:10 PT 16.2 Seconds (9.8-13.1) H 08/04/18 10:28 INR 1.4 08/04/18 10:28 APTT 35.6 Seconds (25.6-37.1) 08/04/18 10:28 - Constitutional Appears: No Acute Distress - Head Exam Head Exam: NORMOCEPHALIC - Eye Exam Eye Exam: absent: Scleral icterus - ENT Exam ENT Exam: Mucous Membranes Dry Additional comments: ETT + - Neck Exam Neck Exam: absent: Lymphadenopathy - Respiratory Exam Respiratory Exam: Decreased Breath Sounds, Rhonchi - Cardiovascular Exam Cardiovascular Exam: REGULAR RHYTHM, +S1, +S2 - GI/Abdominal Exam GI & Abdominal Exam: Distended, Soft. absent: Tenderness - Rectal Exam Rectal Exam: Deferred - Exam Exam: NORMAL INSPECTION - Extremities Exam Extremities Exam: absent: Pedal Edema - Back Exam Back Exam: absent: CVA tenderness (L), CVA tenderness (R) - Neurological Exam Neurological Exam: Alert, Awake, CN II-XII Intact, Oriented x3 Neuro motor strength exam: Left Upper Extremity: 3, Right Upper Extremity: 0, Left Lower Extremity: 3, Right Lower Extremity: 0 - Psychiatric Exam Psychiatric exam: Depressed - Skin Skin Exam: Dry Assessment and Plan (1) Sepsis Status: Acute (2) Change in mental state Status: Acute (3) History of CVA with residual deficit Status: Acute (4) Diabetes 1.5, managed as type 2 Status: Chronic (5) History of CVA (cerebrovascular accident) Status: Chronic (6) NSTEMI (non-ST elevated myocardial infarction) Status: Acute (7) JORGE A (acute kidney injury) Status: Acute (8) Pansinusitis Status: Acute - Assessment and Plan (Free Text) Assessment: res[iratory status better- possible extubation soon awake alert responsive denies headache still with fever and leukocytosis MRI show sinusitis consider ENT eval ? parameningeal focus LFT's up consider d/c allopurinol agree with ANNETTE
--- NOTE | 2018-08-07 18:33 | CP.PCM.PN ---
Subjective - Date & Time of Evaluation Date of Evaluation: 08/07/18 Time of Evaluation: 10:30 - Subjective Subjective: patient seen and examined at bedside. no family at bedside Interim events noted Remains intubated though much more awake/alert available diagnostic data reviewed Review of Systems unable to obtain due to status Objective Vital Signs Stable - Constitutional Appears: Chronically Ill Head Exam: NORMAL INSPECTION Respiratory Exam: Intubated, CTABL Cardiovascular Exam: +S1, +S2 GI & Abdominal Exam: Soft Neurological Exam: Alert, Awake Skin Exam: Normal Color, Warm Assessment and Plan monitor vitals monitor labs Cont meds Cont tx ID, Cardio, Neuro, ICU, Renal, Pulm following consultants appreciated input possible extubation soon rest of plan as ordered Objective - Vital Signs/Intake and Output Vital Signs (last 24 hours): Temp Pulse Resp BP Pulse Ox 100.4 F H 79 19 140/76 100 08/07/18 16:00 08/07/18 18:00 08/07/18 18:00 08/07/18 18:00 08/07/18 18:00 Intake and Output: 08/07/18 08/07/18 06:59 18:59 Intake Total 860 1495 Output Total 650 550 Balance 210 945 - Medications Medications: Current Medications Acetaminophen (Tylenol 650mg/20.3ml Solution Ud) 650 mg PO Q6 PRN PRN Reason: Fever>100.4 F Last Admin: 08/04/18 13:06 Dose: 650 mg Albuterol/Ipratropium (Duoneb 3 Mg/0.5 Mg (3 Ml) Ud) 3 ml INH RQ6 [facility] Last Admin: 08/07/18 13:05 Dose: 3 ml Allopurinol (Zyloprim) 300 mg PO DAILY [facility] Last Admin: 08/07/18 08:22 Dose: 300 mg Calcium Acetate (Phoslo) 667 mg PO TID [facility] Last Admin: 08/07/18 16:45 Dose: 667 mg Dimethicone (Proshield Plus Skin Protectant) 1 applic TOP Q8 [facility] Levetiracetam 500 mg/ Sodium (Chloride) 105 mls @ 210 mls/hr IVPB Q12 [facility] Last Admin: 08/07/18 08:20 Dose: 210 mls/hr Vancomycin HCl 1 gm/ Sodium (Chloride) 250 mls @ 250 mls/hr IVPB MWF [facility]; Protocol Last Admin: 08/07/18 08:22 Dose: 250 mls/hr Cefepime HCl 1 gm/ Sodium (Chloride) 100 mls @ 100 mls/hr IVPB Q12 [facility]; Protocol Insulin Human Regular (Humulin R) 0 units SC ACCU-CHECK [facility]; Protocol Last Admin: 08/07/18 16:45 Dose: 2 u Labetalol HCl (Trandate) 20 mg IVP Q4 PRN PRN Reason: Systolic Blood Pressure Last Admin: 08/06/18 02:38 Dose: 20 mg Vitamin B Complex/Vit C/Folic Acid (Nephro-Everardo) 1 tab PO DAILY [facility] Last Admin: 08/07/18 08:21 Dose: 1 tab - Labs Labs: 08/07/18 04:10 08/07/18 04:10 PT 16.2 Seconds (9.8-13.1) H 08/04/18 10:28 INR 1.4 08/04/18 10:28 APTT 35.6 Seconds (25.6-37.1) 08/04/18 10:28 Assessment and Plan (1) Respiratory failure Status: Acute (2) Sepsis Status: Acute (3) JORGE A (acute kidney injury) Status: Acute
[2018-08-08] MEDS: Albuterol-Ipratrop 3 mg / 0.5 (3 ml) UD INH SCH ×4 (01:00→19:18)
[2018-08-08 05:08] LABS: ABG ALLEN TEST YES; ARTERIAL BLOOD GAS HCO3 28.2 mmol/L (21-28); ARTERIAL BLOOD GAS HEMOGLOBIN 9.9 g/dL (11.7-17.4); ARTERIAL BLOOD GAS O2 CAPACITY 13.6 mL/dL (16-24); ARTERIAL BLOOD GAS O2 CONTENT 13.5 ML/dL (15-23); ARTERIAL BLOOD GAS O2 SAT 99.6 % (95-98); ARTERIAL BLOOD GAS PCO2 40 mm/Hg (35-45); ARTERIAL BLOOD GAS PH 7.46 (7.35-7.45); ARTERIAL BLOOD GAS PO2 93 mm/Hg (80-100); ARTERIAL BLOOD GAS TCO2 29.6 mmol/L (22-28)
[2018-08-08 05:44] LABS: HEMOGLOBIN 9.2 g/dL (12.0-16.0); MEAN CELL VOLUME 77.2 fl (81.0-99.0); MEAN CORPUSCULAR HEMOGLOBIN 24.9 pg (27.0-31.0); MEAN CORPUSCULAR HGB CONC 32.3 g/dL (33.0-37.0); RBC 3.69 Mil/uL (3.80-5.20); RED CELL DISTRIBUTION WIDTH 19.6 % (11.5-14.5); WHITE BLOOD COUNT 20.1 K/uL (4.8-10.8)
[2018-08-08 06:20] LABS: CALCIUM 8.8 mg/dL (8.4-10.2); URIC ACID 6.3 mg/Dl (2.2-7.5)
[2018-08-08] MEDS: Insulin Regular 100 units/ml SC SCH ×4 (06:57→22:05)
--- NOTE | 2018-08-08 08:42 | RAD ---
Date of service: 08/08/2018 HISTORY: Intubated COMPARISON: Portable chest 08/07/2018. FINDINGS: LUNGS: The endotracheal tube is not visualized suggesting extubation. Clinically correlate. Right central venous line and right center venous dialysis catheter unchanged in position. Taking differences in technique into account, limited patchy density is identified at the right lateral base with remaining lung pino clear. PLEURA: Trace right pleural effusion is not excluded. None is grossly evident at the left. The left costophrenic sulcus is been excluded. Follow-up chest radiograph recommended. CARDIOVASCULAR: Calcific atherosclerotic changes are seen related to the thoracic aorta. Normal cardiac size. Prosthetic cardiac valve again evident. No pulmonary vascular congestion. OSSEOUS STRUCTURES: Sternotomy wires reiterated. VISUALIZED UPPER ABDOMEN: Surgical clips again noted right upper quadrant abdomen. OTHER FINDINGS: None. IMPRESSION: Limited patchy atelectasis favored over infiltrate right base laterally. Trace right pleural effusion present. No gross left pleural effusion evident. Interval extubation likely. Clinically correlate. Remaining catheters unchanged in position.
--- NOTE | 2018-08-08 08:54 | RAD ---
Date of service: 08/08/2018 HISTORY: abd pain COMPARISON: Abdomen pelvis CT without contrast 07/30/2018. FINDINGS: BOWEL: Increased gaseous dilatation of small as well as large-bowel loops is identified with a mild amount of gas at the distal rectosigmoid in a pattern most compatible with an ileus rather than distal large bowel obstruction. The stomach is also moderately dilated. Gas pattern has increased since prior CT 07/30/2018. No free intrarenal gas collection or abnormal internal calcifications are identified. Surgical clips are again seen the right upper quadrant abdomen. BONES: Normal. OTHER FINDINGS: None. IMPRESSION: Increasing gaseous dilatation of the gastrointestinal tract is appreciated most compatible with ileus rather than distal large bowel obstruction.
--- NOTE | 2018-08-08 10:07 | CP.PCM.PN ---
Subjective - Date & Time of Evaluation Date of Evaluation: 08/08/18 Time of Evaluation: 07:00 - Subjective Subjective: Patient in bed awake and conscious and extubated. Vital signs noted to be stable. Kidney function noted to be stable with serum creatinine is not rising. Mental status improving. Objective - Vital Signs/Intake and Output Vital Signs (last 24 hours): Temp Pulse Resp BP Pulse Ox 99.2 F 82 34 H 149/76 100 08/08/18 08:00 08/08/18 08:00 08/08/18 08:00 08/08/18 08:00 08/08/18 08:00 Intake and Output: 08/08/18 08/08/18 06:59 18:59 Intake Total 733 Output Total 800 Balance -67 - Medications Medications: Current Medications Acetaminophen (Tylenol 650mg/20.3ml Solution Ud) 650 mg PO Q6 PRN PRN Reason: Fever>100.4 F Last Admin: 08/04/18 13:06 Dose: 650 mg Albuterol/Ipratropium (Duoneb 3 Mg/0.5 Mg (3 Ml) Ud) 3 ml INH RQ6 [place] Last Admin: 08/08/18 08:23 Dose: 3 ml Dimethicone (Proshield Plus Skin Protectant) 1 applic TOP Q8 [place] Levetiracetam 500 mg/ Sodium (Chloride) 105 mls @ 210 mls/hr IVPB Q12 [place] Last Admin: 08/07/18 20:37 Dose: 210 mls/hr Vancomycin HCl 1 gm/ Sodium (Chloride) 250 mls @ 250 mls/hr IVPB MWF [place]; Protocol Last Admin: 08/07/18 08:22 Dose: 250 mls/hr Cefepime HCl 1 gm/ Sodium (Chloride) 100 mls @ 100 mls/hr IVPB Q12 [place]; Protocol Last Admin: 08/07/18 21:22 Dose: 100 mls/hr Potassium Chloride (Potassium Cl 10meq/50ml Sterile Water) 50 mls @ 50 mls/hr IVPB Q1 [place] Stop: 08/08/18 11:59 Insulin Human Regular (Humulin R) 0 units SC ACCU-CHECK [place]; Protocol Last Admin: 08/08/18 06:57 Dose: 2 u Labetalol HCl (Trandate) 20 mg IVP Q4 PRN PRN Reason: Systolic Blood Pressure Last Admin: 08/06/18 02:38 Dose: 20 mg Ondansetron HCl (Zofran Inj) 4 mg IVP Q6 PRN PRN Reason: Nausea/Vomiting Last Admin: 08/08/18 01:04 Dose: 4 mg Vitamin B Complex/Vit C/Folic Acid (Nephro-Everardo) 1 tab PO DAILY [place] Last Admin: 08/07/18 08:21 Dose: 1 tab - Labs Labs: 08/08/18 05:00 08/08/18 05:00 PT 16.2 Seconds (9.8-13.1) H 08/04/18 10:28 INR 1.4 08/04/18 10:28 APTT 35.6 Seconds (25.6-37.1) 08/04/18 10:28 - Constitutional Appears: No Acute Distress - Eye Exam Eye Exam: Conjunctival injection - ENT Exam ENT Exam: Mucous Membranes Moist - Neck Exam Neck Exam: absent: Lymphadenopathy - Respiratory Exam Respiratory Exam: NORMAL BREATHING PATTERN. absent: Chest Wall Tenderness - Cardiovascular Exam Cardiovascular Exam: absent: Gallop, JVD, Rubs - GI/Abdominal Exam GI & Abdominal Exam: Soft, Normal Bowel Sounds - Extremities Exam Extremities Exam: absent: Calf Tenderness, Pedal Edema - Back Exam Back Exam: absent: CVA tenderness (L), CVA tenderness (R) - Neurological Exam Neurological Exam: Awake - Skin Skin Exam: absent: Cyanosis Assessment and Plan (1) JORGE A (acute kidney injury) Assessment & Plan: Assessment: critical Respiratory failure/ patient extubated Acute renal failure/acute kidney injury related to multifactorial including sepsis. Diabetes mellitus and history of hypertension history of CVA. encephalopathy patient improving mental status much better and more awake hyperurecemia corrected , DC allopurinol Hyperphosphatemia corrected DC calcium acetate Shock liver Nephrotic syndrome proteinuria with 7 gram proteinuria based on protein to creatinine ratio Recommendation DC allopurinol and DC calcium acetate Worsening leukocytosis as per ID with antibiotics considering GFR Kidney function continued to improve and serum creatinine is stable as noted and therefore we will hold hemodialysis until further order and keep monitoring Status: Acute (2) Elevated liver enzymes Status: Acute (3) Elevated troponin level Status: Acute (4) Leukocytosis Status: Acute (5) Sepsis Status: Acute
[2018-08-08] MEDS: levETIRAcetam 500 MG in Sodium Chloride 0.9% 100 ML IVPB SCH ×2 (10:12→20:00)
[2018-08-08] MEDS: Cefepime 1 GM in Sodium Chloride 0.9% 100 ML IVPB SCH ×2 (10:13→20:01)
[2018-08-08] MEDS: Multivitamin Vitamin B Complex (Nephro-Vite) Tab PO SCH (10:13)
--- NOTE | 2018-08-08 10:57 | CP.PCM.PN ---
Subjective - Date & Time of Evaluation Date of Evaluation: 08/08/18 Time of Evaluation: 10:57 - Subjective Subjective: Neuro Follow-Up Note: Mrs. Landis was evaluated this morning in the ICU. No family at bedside during time of exam. She is now extubated. Pt is awake, verbal, and able to follow commands. Pt still cannot recall events that preceded her episode of AMS and the reason why family called EMS. Today pt denies h/a, dizziness, visual c hanges, chest pain, nausea; still admits to abd pain but improved since yesterday. Objective - Vital Signs/Intake and Output Vital Signs (last 24 hours): Temp Pulse Resp BP Pulse Ox 99.2 F 82 34 H 149/76 100 08/08/18 08:00 08/08/18 08:00 08/08/18 08:00 08/08/18 08:00 08/08/18 08:00 Intake and Output: 08/08/18 08/08/18 06:59 18:59 Intake Total 733 Output Total 800 Balance -67 - Medications Medications: Current Medications Acetaminophen (Tylenol 650mg/20.3ml Solution Ud) 650 mg PO Q6 PRN PRN Reason: Fever>100.4 F Last Admin: 08/04/18 13:06 Dose: 650 mg Albuterol/Ipratropium (Duoneb 3 Mg/0.5 Mg (3 Ml) Ud) 3 ml INH RQ6 [place] Last Admin: 08/08/18 08:23 Dose: 3 ml Dimethicone (Proshield Plus Skin Protectant) 1 applic TOP Q8 [place] Levetiracetam 500 mg/ Sodium (Chloride) 105 mls @ 210 mls/hr IVPB Q12 [place] Last Admin: 08/08/18 10:12 Dose: 210 mls/hr Vancomycin HCl 1 gm/ Sodium (Chloride) 250 mls @ 250 mls/hr IVPB MWF [place]; Protocol Last Admin: 08/07/18 08:22 Dose: 250 mls/hr Cefepime HCl 1 gm/ Sodium (Chloride) 100 mls @ 100 mls/hr IVPB Q12 [place]; Protocol Last Admin: 08/08/18 10:13 Dose: 100 mls/hr Potassium Chloride (Potassium Cl 10meq/50ml Sterile Water) 50 mls @ 50 mls/hr IVPB Q1 [place] Stop: 08/08/18 11:59 Insulin Human Regular (Humulin R) 0 units SC ACCU-CHECK [place]; Protocol Last Admin: 08/08/18 06:57 Dose: 2 u Labetalol HCl (Trandate) 20 mg IVP Q4 PRN PRN Reason: Systolic Blood Pressure Last Admin: 08/06/18 02:38 Dose: 20 mg Ondansetron HCl (Zofran Inj) 4 mg IVP Q6 PRN PRN Reason: Nausea/Vomiting Last Admin: 08/08/18 01:04 Dose: 4 mg Vitamin B Complex/Vit C/Folic Acid (Nephro-Everardo) 1 tab PO DAILY [place] Last Admin: 08/08/18 10:13 Dose: Not Given - Labs Labs: 08/08/18 05:00 08/08/18 05:00 PT 16.2 Seconds (9.8-13.1) H 08/04/18 10:28 INR 1.4 08/04/18 10:28 APTT 35.6 Seconds (25.6-37.1) 08/04/18 10:28 - Constitutional Appears: Well, Non-toxic - Head Exam Head Exam: ATRAUMATIC, NORMAL INSPECTION, NORMOCEPHALIC - Eye Exam Eye Exam: EOMI Pupil Exam: absent: NORMAL ACCOMODATION Additional comments: Pupils are both reactive to light, though unequal---Left pupil is approx 2-3 mm; Right pupil is approx 6-7 mm. No visual field deficits No diplopia - ENT Exam ENT Exam: Mucous Membranes Moist - Neck Exam Neck Exam: Normal Inspection - Respiratory Exam Respiratory Exam: NORMAL BREATHING PATTERN - GI/Abdominal Exam GI & Abdominal Exam: Tenderness (still has some tenderness to gen abd area, improved since yesterday) - Extremities Exam Extremities Exam: absent: Calf Tenderness, Full ROM, Pedal Edema Additional comments: RUE and RLE flaccid 2/2 previous CVA Able to move LUE and LLE---able to raise her LLE for at least 3-4 seconds. - Neurological Exam Neurological Exam: Alert, Awake, CN II-XII Intact Neuro motor strength exam: Left Upper Extremity: 3 (clock smith 3/5), Right Upper Extremity: 0, Left Lower Extremity: 3 (plantar flexion 3/5), Right Lower Extremity: 0 Additional comments: Pt is awake, alert, verbal, follows commands. Oriented to place--knows she is in the hospital. Pupils are both reactive to light, though unequal---Left pupil is approx 2-3 mm; Right pupil is approx 6-7 mm. No visual field deficits No diplopia RUE and RLE flaccid 2/2 previous CVA Able to move LUE and LLE, still has weakened clock smith but better than yesterday---to raise her LLE for at least 3-4 seconds. Sensation intact b/l No tremors Toes down doing left side; plantar response difficult to elicit on right side. - Psychiatric Exam Psychiatric exam: Normal Affect - Skin Skin Exam: Normal Color Assessment and Plan (1) Toxic metabolic encephalopathy Assessment & Plan: Imaging reviewed: -Brain MRI (08/02/18): 1. No acute intracranial abnormality. 2. Cystic encephalomalacia and gliosis in the left pickard radiata and basal ganglia, sequela of remote MCA territory infarction. 3. Mild chronic microangiopathic changes and mild age-related global parenchymal volume loss. 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 4. Pansinusitis, with a complicated retention cyst/polyp in the right maxillary sinus. Fluid in the sphenoid sinus may represent acute sinusitis in the appropriate clinical setting. Bilateral mastoid effusions. -EEG (repeat; 08/01/18): This is an abnormal EEG record that demonstrate the presence of severe non specific diffuse disturbance of cortical activity, this is keeping with a diffuse abbasi matter dysfunction, these findings re not specific. These type of EEG is usually seen in toxic metabolic encephalopathies , hypoxic-ischemic brain injury among others, clinical correlation is recommen ded. The EEG look similar to the previous video EEG study of 07/29, 07/30. No seizures. Patient is not in status epilepticus. -CT Head (07/30/18): No acute intracranial abnormalities. No significant findings to account for the clinical presentation. No significant interval change compared to the prior examination(s). -CT Head (07/28/18): No acute intracranial abnormalities. No significant findings to account for the clinical presentation. Extensive postoperative changes described above. -EEG (07/30/18): shows burst suppression per Dr. Novak. -ECHO (07/30/18) done: 50-55% -Will order Carotid and Vertebral U/S to be done tomorrow morning now that the pt is extubated. -No need for repeat CT head per Dr. Novak for unequal pupils today. -We still recommend for Cardiology to do a ANNETTE to r/o septic endocarditis if there is no improvement in pt condition--ID in agreement. -Continue current medications and treatment of other acute medical issues. -Continue ICU management. -Discussed neuro plan with Dr. Alvarado and primary RN. -Notify neuro team of any acute changes to pt's condition. Diane Linder, RADHA, [employer] Case discussed with Dr. Santiago Status: Acute
[2018-08-08] MEDS: Proshield Plus GEL TOP SCH ×2 (12:19→16:00)
[2018-08-08] MEDS: Potassium CL 10 MEQ/50 ML 50 ML IVPB SCH ×2 (12:30→13:38)
--- NOTE | 2018-08-08 16:39 | CP.CCUPN ---
CCU Subjective - Physician Review Subjective (Free Text): 08/08/18 17:32 The patient was Seen/interviewed and examined by me at the bedside during ICU round, Medical records reviewed and Management issues were discussed and formulated with the house staff. Events reviewed Extubated and saturating well 98-100 on nasal cannula Resp nonlabored, minimal respiratory secretions Awake, follows commands Comfortable, NAD + lower Abd pain, no n/v/d, Abd XR consistant with Ileus, Started Tylenol for pain and stool softener Denies any chest pain, SOB or Palpitations Afebrile, NSR on the monitor Last 24H I&O 2228/1350 This morning labs revealed Stable renal function, No HD today * Abd XR: 08/08/2018 HISTORY:abd pain COMPARISON:Abdomen pelvis CT without contrast 07/30/2018. FINDINGS: BOWEL: Increased gaseous dilatation of small as well as large-bowel loops is identified with a mild amount of gas at the distal rectosigmoid in a pattern most compatible with an ileus rather than distal large bowel obstruction. The stomach is also moderately dilated. Gas pattern has increased since prior CT 07/30/2018. No free intrarenal gas collection or abnormal internal calcifications are identified. Surgical clips are again seen the right upper quadrant abdomen. IMPRESSION: Increasing gaseous dilatation of the gastrointestinal tract is appreciated most compatible with ileus rather than distal large bowel obstruction. CCU Objective - Vital Signs / Intake & Output Vital Signs (Last 4 hours): Vital Signs Temp Pulse Resp BP Pulse Ox 08/08/18 16:00 98.4 F 84 165/82 H 99 08/08/18 14:00 91 H 22 142/73 100 Intake and Output (Last 8hrs): Intake & Output 08/08/18 08/08/18 08/08/18 06:59 14:59 22:59 Intake Total 294 300 Output Total 800 650 50 Balance -506 -350 -50 Weight 223 lb Intake: IV 14 Intake, Piggyback 100 300 Tube Feeding 180 Output: Urine 800 650 50 Urethral (Amaro) 800 650 50 - Physical Exam Head: Positive for: Atraumatic, Normocephalic Pupils: Positive for: PERRL Extroacular Muscles: Positive for: EOMI Conjunctiva: Positive for: Normal Mouth: Positive for: Moist Mucous Membranes Nose (Internal): Positive for: Normal Inspection Neck: Positive for: Normal Range of Motion Respiratory/Chest: Positive for: Clear to Auscultation, Good Air Exchange, Accessory Muscle Use. Negative for: Respiratory Distress Abdomen: Positive for: Distention, Normal Bowel Sounds. Negative for: Peritoneal Signs, Rebound, Guarding, Hernias, Feeding Tubes, Ostomy Tubes Upper Extremity: Positive for: Normal Inspection Lower Extremity: Positive for: Edema - Medications Active Medications: Active Medications Generic Name Dose Route Start Last Admin Trade Name Freq PRN Reason Stop Dose Admin Acetaminophen 650 mg 08/04/18 09:45 08/04/18 13:06 Tylenol 650mg/20.3ml Solution Ud PO 650 mg Q6 PRN Administration Fever>100.4 F Albuterol/Ipratropium 3 ml 08/02/18 14:30 08/08/18 13:33 Duoneb 3 Mg/0.5 Mg (3 Ml) Ud INH 3 ml RQ6 [place] Administration Dimethicone 1 applic 08/08/18 09:00 08/08/18 16:00 Proshield Plus Skin Protectant TOP 1 applic Q8 [place] Administration Levetiracetam 500 mg/ Sodium 105 mls @ 210 mls/hr 07/30/18 09:00 08/08/18 10:12 Chloride IVPB 210 mls/hr Q12 [place] Administration Vancomycin HCl 1 gm/ Sodium 250 mls @ 250 mls/hr 08/07/18 09:00 08/07/18 08:22 Chloride IVPB 250 mls/hr MWF [place] Administration Protocol Cefepime HCl 1 gm/ Sodium 100 mls @ 100 mls/hr 08/07/18 21:00 08/08/18 10:13 Chloride IVPB 100 mls/hr Q12 [place] Administration Protocol Insulin Human Regular 0 units 08/03/18 17:00 08/08/18 12:18 Humulin R SC 1 u ACCU-CHECK [place] Administration Protocol Labetalol HCl 20 mg 08/05/18 12:45 08/06/18 02:38 Trandate IVP 20 mg Q4 PRN Administration Systolic Blood Pressure Ondansetron HCl 4 mg 08/08/18 00:52 08/08/18 01:04 Zofran Inj IVP 4 mg Q6 PRN Administration Nausea/Vomiting Vitamin B Complex/Vit C/Folic Acid 1 tab 08/06/18 09:00 08/08/18 10:13 Nephro-Everardo PO Not Given DAILY [place] - Patient Studies Lab Studies: Lab Studies 08/08/18 08/08/18 08/08/18 Range/Units 11:05 06:07 05:00 WBC (4.8-10.8) K/uL RBC (3.80-5.20) Mil/uL Hgb (12.0-16.0) g/dL Hct (34.0-47.0) % MCV (81.0-99.0) fl MCH (27.0-31.0) pg MCHC (33.0-37.0) g/dL RDW (11.5-14.5) % Plt Count (130-400) K/uL pCO2 40 (35-45) mm/Hg pO2 93 (80-100) mm/Hg HCO3 28.2 H (21-28) mmol/L ABG pH 7.46 H (7.35-7.45) ABG Total CO2 29.6 H (22-28) mmol/L ABG O2 Saturation 99.6 H (95-98) % ABG O2 Content 13.5 L (15-23) ML/dL ABG Base Excess 4.2 H (-2.0-3.0) mmol/L ABG Hemoglobin 9.9 L (11.7-17.4) g/dL ABG Carboxyhemoglobin 2.0 H (0.5-1.5) % POC ABG HHb (Measured) 0.4 (0.0-5.0) % ABG Methemoglobin 1.8 (0.0-3.0) % ABG O2 Capacity 13.6 L (16-24) mL/dL Blaine Test Yes A-a O2 Difference 57.0 mm/Hg Hgb O2 Saturation 95.7 (95.0-98.0) % FiO2 28.0 % Sodium (132-148) mmol/l Potassium (3.6-5.0) MMOL/L Chloride (98-107) mmol/L Carbon Dioxide (22-30) mmol/L Anion Gap (10-20) BUN (7-17) mg/dl Creatinine (0.7-1.2) mg/dl Est GFR ( Amer) Est GFR (Non-Af Amer) POC Glucose (mg/dL) 179 H 206 H (65-110) mg/dL Random Glucose (65-105) mg/dL Uric Acid (2.2-7.5) mg/Dl Calcium (8.4-10.2) mg/dL Phosphorus (2.5-4.5) mg/dl Procalcitonin (0.19-0.49) NG/ML Urine Myoglobin 08/08/18 08/08/18 08/08/18 Range/Units 05:00 05:00 05:00 WBC 20.1 H (4.8-10.8) K/uL RBC 3.69 L (3.80-5.20) Mil/uL Hgb 9.2 L (12.0-16.0) g/dL Hct 28.5 L (34.0-47.0) % MCV 77.2 L (81.0-99.0) fl MCH 24.9 L (27.0-31.0) pg MCHC 32.3 L (33.0-37.0) g/dL RDW 19.6 H (11.5-14.5) % Plt Count 215 (130-400) K/uL pCO2 (35-45) mm/Hg pO2 (80-100) mm/Hg HCO3 (21-28) mmol/L ABG pH (7.35-7.45) ABG Total CO2 (22-28) mmol/L ABG O2 Saturation (95-98) % ABG O2 Content (15-23) ML/dL ABG Base Excess (-2.0-3.0) mmol/L ABG Hemoglobin (11.7-17.4) g/dL ABG Carboxyhemoglobin (0.5-1.5) % POC ABG HHb (Measured) (0.0-5.0) % ABG Methemoglobin (0.0-3.0) % ABG O2 Capacity (16-24) mL/dL Blaine Test A-a O2 Difference mm/Hg Hgb O2 Saturation (95.0-98.0) % FiO2 % Sodium 141 (132-148) mmol/l Potassium 3.1 L (3.6-5.0) MMOL/L Chloride 106 (98-107) mmol/L Carbon Dioxide 28 (22-30) mmol/L Anion Gap 10 (10-20) BUN 46 H (7-17) mg/dl Creatinine 3.3 H (0.7-1.2) mg/dl Est GFR ( Amer) 17 Est GFR (Non-Af Amer) 14 POC Glucose (mg/dL) (65-110) mg/dL Random Glucose 210 H (65-105) mg/dL Uric Acid 6.3 (2.2-7.5) mg/Dl Calcium 8.8 (8.4-10.2) mg/dL Phosphorus 3.9 (2.5-4.5) mg/dl Procalcitonin 2.01 H (0.19-0.49) NG/ML Urine Myoglobin 08/07/18 08/04/18 Range/Units 20:51 11:00 WBC (4.8-10.8) K/uL RBC (3.80-5.20) Mil/uL Hgb (12.0-16.0) g/dL Hct (34.0-47.0) % MCV (81.0-99.0) fl MCH (27.0-31.0) pg MCHC (33.0-37.0) g/dL RDW (11.5-14.5) % Plt Count (130-400) K/uL pCO2 (35-45) mm/Hg pO2 (80-100) mm/Hg HCO3 (21-28) mmol/L ABG pH (7.35-7.45) ABG Total CO2 (22-28) mmol/L ABG O2 Saturation (95-98) % ABG O2 Content (15-23) ML/dL ABG Base Excess (-2.0-3.0) mmol/L ABG Hemoglobin (11.7-17.4) g/dL ABG Carboxyhemoglobin (0.5-1.5) % POC ABG HHb (Measured) (0.0-5.0) % ABG Methemoglobin (0.0-3.0) % ABG O2 Capacity (16-24) mL/dL Blaine Test A-a O2 Difference mm/Hg Hgb O2 Saturation (95.0-98.0) % FiO2 % Sodium (132-148) mmol/l Potassium (3.6-5.0) MMOL/L Chloride (98-107) mmol/L Carbon Dioxide (22-30) mmol/L Anion Gap (10-20) BUN (7-17) mg/dl Creatinine (0.7-1.2) mg/dl Est GFR ( Amer) Est GFR (Non-Af Amer) POC Glucose (mg/dL) 196 H (65-110) mg/dL Random Glucose (65-105) mg/dL Uric Acid (2.2-7.5) mg/Dl Calcium (8.4-10.2) mg/dL Phosphorus (2.5-4.5) mg/dl Procalcitonin (0.19-0.49) NG/ML Urine Myoglobin TNP Laboratory Results - last 24 hr 08/04/18 08/07/18 08/08/18 11:00 20:51 05:00 WBC RBC Hgb Hct MCV MCH MCHC RDW Plt Count pCO2 pO2 HCO3 ABG pH ABG Total CO2 ABG O2 Saturation ABG O2 Content ABG Base Excess ABG Hemoglobin ABG Carboxyhemoglobin POC ABG HHb (Measured) ABG Methemoglobin ABG O2 Capacity Blaine Test A-a O2 Difference Hgb O2 Saturation FiO2 Sodium 141 Potassium 3.1 L Chloride 106 Carbon Dioxide 28 Anion Gap 10 BUN 46 H Creatinine 3.3 H Est GFR ( Amer) 17 Est GFR (Non-Af Amer) 14 POC Glucose (mg/dL) 196 H Random Glucose 210 H Uric Acid 6.3 Calcium 8.8 Phosphorus 3.9 Procalcitonin Urine Myoglobin TNP 08/08/18 08/08/18 08/08/18 05:00 05:00 05:00 WBC 20.1 H RBC 3.69 L Hgb 9.2 L Hct 28.5 L MCV 77.2 L MCH 24.9 L MCHC 32.3 L RDW 19.6 H Plt Count 215 pCO2 40 pO2 93 HCO3 28.2 H ABG pH 7.46 H ABG Total CO2 29.6 H ABG O2 Saturation 99.6 H ABG O2 Content 13.5 L ABG Base Excess 4.2 H ABG Hemoglobin 9.9 L ABG Carboxyhemoglobin 2.0 H POC ABG HHb (Measured) 0.4 ABG Methemoglobin 1.8 ABG O2 Capacity 13.6 L Blaine Test Yes A-a O2 Difference 57.0 Hgb O2 Saturation 95.7 FiO2 28.0 Sodium Potassium Chloride Carbon Dioxide Anion Gap BUN Creatinine Est GFR ( Amer) Est GFR (Non-Af Amer) POC Glucose (mg/dL) Random Glucose Uric Acid Calcium Phosphorus Procalcitonin 2.01 H Urine Myoglobin 08/08/18 08/08/18 06:07 11:05 WBC RBC Hgb Hct MCV MCH MCHC RDW Plt Count pCO2 pO2 HCO3 ABG pH ABG Total CO2 ABG O2 Saturation ABG O2 Content ABG Base Excess ABG Hemoglobin ABG Carboxyhemoglobin POC ABG HHb (Measured) ABG Methemoglobin ABG O2 Capacity Blaine Test A-a O2 Difference Hgb O2 Saturation FiO2 Sodium Potassium Chloride Carbon Dioxide Anion Gap BUN Creatinine Est GFR ( Amer) Est GFR (Non-Af Amer) POC Glucose (mg/dL) 206 H 179 H Random Glucose Uric Acid Calcium Phosphorus Procalcitonin Urine Myoglobin Radiology Impressions: Radiology Impressions Abdomen X-Ray 08/08/18 03:40 IMPRESSION: Increasing gaseous dilatation of the gastrointestinal tract is appreciated most compatible with ileus rather than distal large bowel obstruction. Chest X-Ray 08/08/18 06:00 IMPRESSION: Limited patchy atelectasis favored over infiltrate right base laterally. Trace right pleural effusion present. No gross left pleural effusion evident. Interval extubation likely. Clinically correlate. Remaining catheters unchanged in position. Fingerstick Blood Sugar Results: 179 Review of Systems - Constitutional Constitutional: absent: Fever, Chills, Sweats, Weakness - Cardiovascular Cardiovascular: absent: Chest Pain, Chest Pain at Rest, Chest Pain with Activity, Claudication, Diaphoresis - Respiratory Respiratory: absent: Cough, Dyspnea, Hemoptysis, Dyspnea on Exertion, Wheezing, Snoring Critical Care Progress Note - Nutrition Nutrition: Nutrition Category Date Time Status Dysphagia/Modified Consistency Diet [DIET] Diets 08/08/18 Dinner Active Assessment/Plan (1) Acute respiratory failure with hypoxia Current Visit: Yes Status: Acute Priority: High Comment: Extubated and saturating well 98-100 on nasal cannula Minimal respiratory secretion (2) Toxic metabolic encephalopathy Current Visit: Yes Status: Acute Priority: High Comment: Patient clinically improved, she is more alert and awake, Following commands sepsis under control renal failure managed with HD No seizures (3) Ileus Current Visit: Yes Status: Acute Priority: High Comment: + lower Abd pain, no n/v/d, Abd XR consistant with Ileus, No evidance of Abd obstruction Started Tylenol for pain and stool softener (4) Accelerated essential hypertension Current Visit: Yes Status: Acute Priority: High (5) Aspiration pneumonia Current Visit: Yes Status: Acute Comment: Continue current antibiotic with IV vancomycin and IV cefepime Maintain map 65-75 (6) JORGE A (acute kidney injury) Current Visit: Yes Status: Acute Priority: Medium Comment: Improving, Stable renal function, K 3.1 Acute kidney injury likely multifactorial due to circulatory failure and sepsis HD as per renal (7) Shock liver Current Visit: Yes Status: Resolved Priority: Medium
--- NOTE | 2018-08-08 20:57 | CP.PCM.PN ---
Subjective - Date & Time of Evaluation Date of Evaluation: 08/08/18 Time of Evaluation: 11:00 - Subjective Subjective: Patient is awake Extubated. On Nc and no SOB Has no fever Continues to have elevated WBC. On Cefepime and Vancomycin Objective - Vital Signs/Intake and Output Vital Signs (last 24 hours): Temp Pulse Resp BP Pulse Ox 98.4 F 86 28 H 166/78 H 100 08/08/18 16:00 08/08/18 18:00 08/08/18 18:00 08/08/18 18:00 08/08/18 18:00 Intake and Output: 08/08/18 08/09/18 18:59 06:59 Intake Total 300 Output Total 825 Balance -525 - Medications Medications: Current Medications Acetaminophen (Tylenol 650mg/20.3ml Solution Ud) 650 mg PO Q6 PRN PRN Reason: Fever>100.4 F Last Admin: 08/04/18 13:06 Dose: 650 mg Acetaminophen (Tylenol 325mg Tab) 650 mg PO Q6 PRN PRN Reason: Pain, moderate (4-7) Last Admin: 08/08/18 19:42 Dose: 650 mg Albuterol/Ipratropium (Duoneb 3 Mg/0.5 Mg (3 Ml) Ud) 3 ml INH RQ6 [facility] Last Admin: 08/08/18 19:18 Dose: 3 ml Dimethicone (Proshield Plus Skin Protectant) 1 applic TOP Q8 [facility] Last Admin: 08/08/18 16:00 Dose: 1 applic Levetiracetam 500 mg/ Sodium (Chloride) 105 mls @ 210 mls/hr IVPB Q12 [facility] Last Admin: 08/08/18 20:00 Dose: 210 mls/hr Vancomycin HCl 1 gm/ Sodium (Chloride) 250 mls @ 250 mls/hr IVPB MWF [facility]; Protocol Last Admin: 08/07/18 08:22 Dose: 250 mls/hr Cefepime HCl 1 gm/ Sodium (Chloride) 100 mls @ 100 mls/hr IVPB Q12 [facility]; Protocol Last Admin: 08/08/18 20:01 Dose: 100 mls/hr Insulin Human Regular (Humulin R) 0 units SC ACCU-CHECK [facility]; Protocol Last Admin: 08/08/18 16:52 Dose: 1 u Labetalol HCl (Trandate) 20 mg IVP Q4 PRN PRN Reason: Systolic Blood Pressure Last Admin: 08/06/18 02:38 Dose: 20 mg Ondansetron HCl (Zofran Inj) 4 mg IVP Q6 PRN PRN Reason: Nausea/Vomiting Last Admin: 08/08/18 01:04 Dose: 4 mg Polyethylene Glycol (Miralax) 17 gm PO HS [facility] Vitamin B Complex/Vit C/Folic Acid (Nephro-Everardo) 1 tab PO DAILY [facility] Last Admin: 08/08/18 10:13 Dose: Not Given - Labs Labs: 08/08/18 05:00 08/08/18 05:00 PT 16.2 Seconds (9.8-13.1) H 08/04/18 10:28 INR 1.4 08/04/18 10:28 APTT 35.6 Seconds (25.6-37.1) 08/04/18 10:28 - Head Exam Head Exam: NORMAL INSPECTION - Eye Exam Eye Exam: Normal appearance - ENT Exam ENT Exam: Mucous Membranes Moist - Respiratory Exam Respiratory Exam: Decreased Breath Sounds - GI/Abdominal Exam GI & Abdominal Exam: Normal Bowel Sounds - Neurological Exam Neurological Exam: Awake, Oriented x3 Assessment and Plan (1) Respiratory failure Status: Acute (2) Sepsis Status: Acute (3) Toxic metabolic encephalopathy Status: Acute - Assessment and Plan (Free Text) Plan: Cont med Cont iv antibiotics Follow up with ID check labs Incentive spirometry
[2018-08-08] MEDS: POLYETHYLENE GLYCOL 3350 17 GM/Dose PACKET PO SCH (21:45)
[2018-08-09] MEDS: Albuterol-Ipratrop 3 mg / 0.5 (3 ml) UD INH SCH ×4 (01:06→19:08)
[2018-08-09] MEDS: Proshield Plus GEL TOP SCH ×3 (01:12→16:29)
[2018-08-09 05:26] LABS: MEAN CELL VOLUME 78.3 fl (81.0-99.0); MEAN CORPUSCULAR HEMOGLOBIN 25.8 pg (27.0-31.0); MEAN CORPUSCULAR HGB CONC 32.9 g/dL (33.0-37.0); RBC 3.5 Mil/uL (3.80-5.20); RED CELL DISTRIBUTION WIDTH 19.2 % (11.5-14.5)
[2018-08-09 05:30] LABS: IRON 29 ug/dL (37-170)
[2018-08-09 05:40] LABS: % IRON SATURATION 11 % (20-55); TOTAL IRON BINDING CAPACITY 268 ug/dL (250-450)
[2018-08-09 05:53] LABS: ALB/GLOB RATIO 0.8 (1.0-2.1); ALBUMIN 3.4 g/dL (3.5-5.0); CALCIUM 8.8 mg/dL (8.4-10.2)
[2018-08-09] MEDS: Insulin Regular 100 units/ml SC SCH ×4 (06:46→22:00)
[2018-08-09] MEDS ORDERED: Potassium Chloride 20 mEq/15 ml LIQ UD PO ONE (07:28)
[2018-08-09] MEDS: Insulin Lispro Mix 75/25 100 units/ml (HumaLog) 10ml SC SCH ×2 (08:25→16:20)
[2018-08-09] MEDS: Cefepime 1 GM in Sodium Chloride 0.9% 100 ML IVPB SCH ×2 (08:28→20:38)
[2018-08-09] MEDS: Multivitamin Vitamin B Complex (Nephro-Vite) Tab PO SCH (08:29)
[2018-08-09] MEDS ORDERED: Chlorhexidine Gluconate 1 APPL/PKT TP ONE (08:37)
[2018-08-09] MEDS ORDERED: Ferrous Sulfate 300 mg/5 mL Liq UD PO SCH ×2 (09:00→13:00)
--- NOTE | 2018-08-09 10:24 | CP.CCUPN ---
CCU Subjective - Physician Review Subjective (Free Text): Awake and conversant, no distress since self Extubation two days ago. No observed recurrent seizure activity, no documented further hypoglycemic episodes. Now 99F, but 100.4max over the past 24H, HR and SBPs which were relatively stable are now trending higher SBPs up to 180s. Labetalol prn stated. Other vitals and I/O's reviewed. Urine output over a liter per 24H. ROS: No other pertinent negs or positives on 10+ system review obtainable due to coma PMSFH: All other Nursing and physician documentation reviewed to date; no new pertinent info noted relevant to current medical problems. EXAM- HEENT: no icterus, no gaze preference, pupils with normal reactivity noted, no nystagmus NECK: no JVD visible, supple, carotids equal upstroke bilat/no bruit, R IJV central line intact. CHEST: decreased BS at the bases, no wheezes audible HEART: irregular, distant, S1S2, no rubs ABD: soft, obese, no distension, no focal tenderness, no tympany, no guarding, no organomegaly, BS hypoactive. EXT: + LE edema, no mottling; no calf tenderness or palpable cords, distal pulses intact and symmetrical, no cyanosis, no mottling. NEURO: R sided hemiplegia, minimal posturing of LUE and LLE SKIN: no rashes, warm and dry LABS: WBC= 21.0 HGB= 9.0 PLTs= 241K Na= 147 K= 3.3 CL= 104 HCO3= 27 BUN/Cr= 47/2.9 BS= 198 IMPRESSION / MAJOR PROBLEMS NOW: 1. s/p Acute Hypoxemic Resp Failure 2 Aspiration PNA 2. Anoxic Encephalopathy 2 unclear Seizure event (hypoglycemic) and prolonged down time (EMS reports 25 minutes, but may have been longer as in not seen till next morning according to sons accounts of events, as he lives with her); or prolonged post-ictal state versus other occult [employer] injury / infection / subacute CVA. 3. Superimposed Metabolic Encephalopathy from Acute Renal Failure 4. Accelerated HTN 5. DM II PLAN: 1. Stable resp status, on nasal cannula oxygen. 2. Only 20 meq K supplement today. No arrhythmias noted. 3. Platelet counts normalized. LFTs slowly improving 4. Aug 03 Sputum results reviewed; no growth of any organisms. Ongoing Maxipime / Vanco. Check Vanco trough, keep <15. WBC still high. Check need for keeping any invasive lines, or remove. 5. Lopressor added to anti-HTN regimen. 6. Supplemental Iron therapy. 7. Consider AC for chronic A. flutter. Cardio opinion. 7. Stable for Tele bed, see orders. 8. Physical Therapy
--- NOTE | 2018-08-09 10:30 | CP.PCM.PN ---
Subjective - Date & Time of Evaluation Date of Evaluation: 08/09/18 Time of Evaluation: 10:30 - Subjective Subjective: extubated alert and awake responds to verbal commands Objective - Vital Signs/Intake and Output Vital Signs (last 24 hours): Temp Pulse Resp BP Pulse Ox 99.3 F 92 H 53 H 172/91 H 97 08/09/18 08:00 08/09/18 08:28 08/09/18 08:00 08/09/18 08:28 08/09/18 08:00 Intake and Output: 08/09/18 08/09/18 06:59 18:59 Intake Total 490 4 Output Total 800 Balance -310 4 - Medications Medications: Current Medications Acetaminophen (Tylenol 650mg/20.3ml Solution Ud) 650 mg PO Q6 PRN PRN Reason: Fever>100.4 F Last Admin: 08/04/18 13:06 Dose: 650 mg Acetaminophen (Tylenol 325mg Tab) 650 mg PO Q6 PRN PRN Reason: Pain, moderate (4-7) Last Admin: 08/08/18 19:42 Dose: 650 mg Albuterol/Ipratropium (Duoneb 3 Mg/0.5 Mg (3 Ml) Ud) 3 ml INH RQ6 [facility] Last Admin: 08/09/18 07:46 Dose: 3 ml Dimethicone (Proshield Plus Skin Protectant) 1 applic TOP Q8 [facility] Last Admin: 08/09/18 08:32 Dose: 1 applic Ferrous Sulfate (Feosol Liq) 300 mg PO TID [facility] Vancomycin HCl 1 gm/ Sodium (Chloride) 250 mls @ 250 mls/hr IVPB MWF [facility]; Protocol Last Admin: 08/09/18 08:29 Dose: 250 mls/hr Cefepime HCl 1 gm/ Sodium (Chloride) 100 mls @ 100 mls/hr IVPB Q12 [facility]; Protocol Last Admin: 08/09/18 08:28 Dose: 100 mls/hr Insulin Human Regular (Humulin R) 0 units SC ACCU-CHECK [facility]; Protocol Last Admin: 08/09/18 06:46 Dose: 1 u Insulin Lispro Protam/Lispro Human (Humalog Mix 75/25) 5 units SC BID [facility]; Protocol Last Admin: 08/09/18 08:25 Dose: 5 units Labetalol HCl (Trandate) 20 mg IVP Q4 PRN PRN Reason: Systolic Blood Pressure Last Admin: 08/06/18 02:38 Dose: 20 mg Levetiracetam (Keppra) 500 mg PO BID [facility] Last Admin: 08/09/18 08:26 Dose: 500 mg Metoprolol Tartrate (Lopressor) 50 mg PO Q12 [facility] Last Admin: 08/09/18 08:28 Dose: 50 mg Ondansetron HCl (Zofran Inj) 4 mg IVP Q6 PRN PRN Reason: Nausea/Vomiting Last Admin: 08/08/18 01:04 Dose: 4 mg Polyethylene Glycol (Miralax) 17 gm PO HS [facility] Last Admin: 08/08/18 21:45 Dose: 17 gm Vitamin B Complex/Vit C/Folic Acid (Nephro-Everardo) 1 tab PO DAILY [facility] Last Admin: 08/09/18 08:29 Dose: 1 tab - Labs Labs: 08/09/18 04:20 08/09/18 04:20 PT 16.2 Seconds (9.8-13.1) H 08/04/18 10:28 INR 1.4 08/04/18 10:28 APTT 35.6 Seconds (25.6-37.1) 08/04/18 10:28 - Constitutional Appears: No Acute Distress - Head Exam Head Exam: ATRAUMATIC, NORMAL INSPECTION, NORMOCEPHALIC - Eye Exam Eye Exam: EOMI, Normal appearance, PERRL Pupil Exam: NORMAL ACCOMODATION, PERRL - ENT Exam ENT Exam: Mucous Membranes Moist, Normal Exam - Neck Exam Neck Exam: Full ROM, Normal Inspection. absent: Lymphadenopathy - Respiratory Exam Respiratory Exam: Clear to Ausculation Bilateral, Prolonged Expiratory Phase, NORMAL BREATHING PATTERN Additional comments: on nc o2 - Cardiovascular Exam Cardiovascular Exam: REGULAR RHYTHM, +S1, +S2. absent: Murmur - GI/Abdominal Exam GI & Abdominal Exam: Soft, Normal Bowel Sounds. absent: Tenderness - Rectal Exam Rectal Exam: NORMAL INSPECTION - Extremities Exam Extremities Exam: Full ROM, Normal Capillary Refill, Normal Inspection. absent: Joint Swelling, Pedal Edema - Back Exam Back Exam: NORMAL INSPECTION - Neurological Exam Neurological Exam: Alert, Awake, CN II-XII Intact, Oriented x3 - Psychiatric Exam Psychiatric exam: Normal Affect, Normal Mood - Skin Skin Exam: Dry, Intact, Normal Color, Warm Assessment and Plan - Assessment and Plan (Free Text) Assessment: s/p resp failure pneumonia--improved esrd Plan: continue current rx
--- NOTE | 2018-08-09 12:05 | CP.PCM.PN ---
Subjective - Date & Time of Evaluation Date of Evaluation: 08/09/18 Time of Evaluation: 12:01 - Subjective Subjective: Neuro Follow-Up Note: Mrs. Landis was evaluated this morning in the ICU. No family at bedside during time of exam. She remains extubated and is awake, verbal, and able to follow commands. Pt states that she feels better today. Still has some abd pain (cannot rate it for me). She appears to have some SOB, however, she denies. Denies h/a, dizziness, visual changes, chest pain, palpitations, cough, n/v/d, paresthesias. Objective - Vital Signs/Intake and Output Vital Signs (last 24 hours): Temp Pulse Resp BP Pulse Ox 101.2 F H 81 45 H 159/81 H 95 08/09/18 11:26 08/09/18 10:00 08/09/18 10:00 08/09/18 10:00 08/09/18 10:00 Intake and Output: 08/09/18 08/09/18 06:59 18:59 Intake Total 490 718 Output Total 800 Balance -310 718 - Medications Medications: Current Medications Acetaminophen (Tylenol 650mg/20.3ml Solution Ud) 650 mg PO Q6 PRN PRN Reason: Fever>100.4 F Last Admin: 08/04/18 13:06 Dose: 650 mg Acetaminophen (Tylenol 325mg Tab) 650 mg PO Q6 PRN PRN Reason: Pain, moderate (4-7) Last Admin: 08/09/18 11:26 Dose: 650 mg Albuterol/Ipratropium (Duoneb 3 Mg/0.5 Mg (3 Ml) Ud) 3 ml INH RQ6 [facility] Last Admin: 08/09/18 07:46 Dose: 3 ml Dimethicone (Proshield Plus Skin Protectant) 1 applic TOP Q8 [facility] Last Admin: 08/09/18 08:32 Dose: 1 applic Ferrous Sulfate (Feosol Liq) 300 mg PO TID [facility] Vancomycin HCl 1 gm/ Sodium (Chloride) 250 mls @ 250 mls/hr IVPB MWF [facility]; Protocol Last Admin: 08/09/18 08:29 Dose: 250 mls/hr Cefepime HCl 1 gm/ Sodium (Chloride) 100 mls @ 100 mls/hr IVPB Q12 [facility]; Protocol Last Admin: 08/09/18 08:28 Dose: 100 mls/hr Insulin Human Regular (Humulin R) 0 units SC ACCU-CHECK [facility]; Protocol Last Admin: 08/09/18 11:25 Dose: 2 u Insulin Lispro Protam/Lispro Human (Humalog Mix 75/25) 5 units SC BID [facility]; P rotocol Last Admin: 08/09/18 08:25 Dose: 5 units Labetalol HCl (Trandate) 20 mg IVP Q4 PRN PRN Reason: Systolic Blood Pressure Last Admin: 08/06/18 02:38 Dose: 20 mg Levetiracetam (Keppra) 500 mg PO BID [facility] Last Admin: 08/09/18 08:26 Dose: 500 mg Metoprolol Tartrate (Lopressor) 50 mg PO Q12 [facility] Last Admin: 08/09/18 08:28 Dose: 50 mg Ondansetron HCl (Zofran Inj) 4 mg IVP Q6 PRN PRN Reason: Nausea/Vomiting Last Admin: 08/08/18 01:04 Dose: 4 mg Polyethylene Glycol (Miralax) 17 gm PO HS [facility] Last Admin: 08/08/18 21:45 Dose: 17 gm Vitamin B Complex/Vit C/Folic Acid (Nephro-Everardo) 1 tab PO DAILY [facility] Last Admin: 08/09/18 08:29 Dose: 1 tab - Labs Labs: 08/09/18 04:20 08/09/18 04:20 PT 16.2 Seconds (9.8-13.1) H 08/04/18 10:28 INR 1.4 08/04/18 10:28 APTT 35.6 Seconds (25.6-37.1) 08/04/18 10:28 - Constitutional Appears: Well - Head Exam Head Exam: ATRAUMATIC, NORMAL INSPECTION, NORMOCEPHALIC - Eye Exam Eye Exam: EOMI, Normal appearance, PERRL Pupil Exam: NORMAL ACCOMODATION, PERRL Additional comments: Pupils are equal today No diplopia; no visual field deficits - ENT Exam ENT Exam: Mucous Membranes Moist - Neck Exam Neck Exam: Normal Inspection - Respiratory Exam Respiratory Exam: absent: NORMAL BREATHING PATTERN (appears to have some sob, RR 22) - Cardiovascular Exam Cardiovascular Exam: Irregular Rhythm - GI/Abdominal Exam GI & Abdominal Exam: Tenderness (general abd area) - Extremities Exam Extremities Exam: absent: Calf Tenderness, Full ROM, Pedal Edema Additional comments: RUE and RLE flaccid 2/2 previous CVA Able to move LUE and LLE---still able to raise her LLE for at least 3 seconds. - Neurological Exam Neurological Exam: Alert, Awake, CN II-XII Intact Neuro motor strength exam: Left Upper Extremity: 3 (plugman 4/5), Right Upper Extremity: 0, Left Lower Extremity: 3 (plantar flexion 3/5), Right Lower Extremity: 0 Additional comments: Pt is awake, alert, verbal, follows commands. Oriented to place. Pupils are equal and reactive today--both at 3 mm. No visual field deficits No diplopia RUE and RLE flaccid 2/2 previous CVA Able to move LUE and LLE, still has slightly weakened plugman but is better than yesterday. Sensation intact b/l No tremors Toes down doing left side; plantar response difficult to elicit on right side. - Psychiatric Exam Psychiatric exam: Normal Affect, Normal Mood - Skin Skin Exam: Normal Color Assessment and Plan (1) Toxic metabolic encephalopathy Assessment & Plan: Imaging reviewed: -Brain MRI (08/02/18): 1. No acute intracranial abnormality. 2. Cystic encephalomalacia and gliosis in the left pickard radiata and basal ganglia, s equela of remote MCA territory infarction. 3. Mild chronic microangiopathic changes and mild age-related global parenchymal volume loss. 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 4. Pansinusitis, with a complicated retention cyst/polyp in the right maxillary sinus. Fluid in the s phenoid sinus may represent acute sinusitis in the appropriate clinical setting. Bilateral mastoid effusions. -EEG (repeat; 08/01/18): This is an abnormal EEG record that demonstrate the presence of severe non specific diffuse disturbance of cortical activity, this is keeping with a diffuse abbasi matter dysfunction, these findings re not specific. These type of EEG is usually seen in toxic metabolic encephalopathies , hypoxic-ischemic brain injury among others, clinical correlation is recommende d. The EEG look similar to the previous video EEG study of 07/29, 07/30. No seizures. Patient is not in status epilepticus. -CT Head (07/30/18): No acute intracranial abnormalities. No significant findings to account for the clinical presentation. No significant interval change compared to the prior examination(s). -CT Head (07/28/18): No acute intracranial abnormalities. No significant findings to account for the clinical presentation. Extensive postoperative changes described above. -EEG (07/30/18): shows burst suppression per Dr. Novak. -ECHO (07/30/18) done: 50-55% -Carotid and Vertebral U/S pending--will f/u once completed. If pt is able to tolerate MRA Head and Neck, that can be done as well. -We still recommend for Cardiology to do a ANNETTE to r/o septic endocarditis if pt continues to be febrile and have leukocytosis--ID in agreement. -Continue current medications and treatment of other acute medical issues. -Continue ICU management. -Notify neuro team of any acute changes to pt's condition. Otherwise, pt is improving neurologically and is doing better each day. -If daughter has any questions, feel free to contact me. Diane Linder, RADHA, NURSE COORDINATOR Case discussed with Dr. Novak Status: Acute
--- NOTE | 2018-08-09 12:58 | CP.PCM.PN ---
Subjective - Date & Time of Evaluation Date of Evaluation: 08/09/18 Time of Evaluation: 12:58 - Subjective Subjective: Patient awake and feeling much better verbalizing somewhat Vital signs noted with intermittent high blood pressure Objective - Vital Signs/Intake and Output Vital Signs (last 24 hours): Temp Pulse Resp BP Pulse Ox 100.9 F H 81 33 H 178/84 H 95 08/09/18 12:26 08/09/18 12:00 08/09/18 12:00 08/09/18 12:00 08/09/18 12:00 Intake and Output: 08/09/18 08/09/18 06:59 18:59 Intake Total 490 718 Output Total 800 Balance -310 718 - Medications Medications: Current Medications Acetaminophen (Tylenol 650mg/20.3ml Solution Ud) 650 mg PO Q6 PRN PRN Reason: Fever>100.4 F Last Admin: 08/04/18 13:06 Dose: 650 mg Acetaminophen (Tylenol 325mg Tab) 650 mg PO Q6 PRN PRN Reason: Pain, moderate (4-7) Last Admin: 08/09/18 11:26 Dose: 650 mg Albuterol/Ipratropium (Duoneb 3 Mg/0.5 Mg (3 Ml) Ud) 3 ml INH RQ6 [facility] Last Admin: 08/09/18 07:46 Dose: 3 ml Dimethicone (Proshield Plus Skin Protectant) 1 applic TOP Q8 [facility] Last Admin: 08/09/18 08:32 Dose: 1 applic Ferrous Sulfate (Feosol Liq) 300 mg PO TID [facility] Vancomycin HCl 1 gm/ Sodium (Chloride) 250 mls @ 250 mls/hr IVPB MWF [facility]; Protocol Last Admin: 08/09/18 08:29 Dose: 250 mls/hr Cefepime HCl 1 gm/ Sodium (Chloride) 100 mls @ 100 mls/hr IVPB Q12 [facility]; Protocol Last Admin: 08/09/18 08:28 Dose: 100 mls/hr Insulin Human Regular (Humulin R) 0 units SC ACCU-CHECK [facility]; Protocol Last Admin: 08/09/18 11:25 Dose: 2 u Insulin Lispro Protam/Lispro Human (Humalog Mix 75/25) 5 units SC BID [facility]; Protocol Last Admin: 08/09/18 08:25 Dose: 5 units Labetalol HCl (Trandate) 20 mg IVP Q4 PRN PRN Reason: Systolic Blood Pressure Last Admin: 08/06/18 02:38 Dose: 20 mg Levetiracetam (Keppra) 500 mg PO BID [facility] Last Admin: 08/09/18 08:26 Dose: 500 mg Metoprolol Tartrate (Lopressor) 50 mg PO Q12 [facility] Last Admin: 08/09/18 08:28 Dose: 50 mg Ondansetron HCl (Zofran Inj) 4 mg IVP Q6 PRN PRN Reason: Nausea/Vomiting Last Admin: 08/08/18 01:04 Dose: 4 mg Polyethylene Glycol (Miralax) 17 gm PO HS [facility] Last Admin: 08/08/18 21:45 Dose: 17 gm Vitamin B Complex/Vit C/Folic Acid (Nephro-Everardo) 1 tab PO DAILY [facility] Last Admin: 08/09/18 08:29 Dose: 1 tab - Labs Labs: 08/09/18 04:20 08/09/18 04:20 PT 16.2 Seconds (9.8-13.1) H 08/04/18 10:28 INR 1.4 08/04/18 10:28 APTT 35.6 Seconds (25.6-37.1) 08/04/18 10:28 - Constitutional Appears: No Acute Distress - Eye Exam Eye Exam: Conjunctival injection - ENT Exam ENT Exam: Mucous Membranes Moist - Neck Exam Neck Exam: absent: Lymphadenopathy - Respiratory Exam Respiratory Exam: Rhonchi. absent: Chest Wall Tenderness - Cardiovascular Exam Cardiovascular Exam: absent: Gallop, JVD, Rubs - GI/Abdominal Exam GI & Abdominal Exam: Soft, Normal Bowel Sounds - Extremities Exam Extremities Exam: absent: Calf Tenderness - Back Exam Back Exam: absent: CVA tenderness (L), CVA tenderness (R) - Neurological Exam Neurological Exam: Altered, Awake Assessment and Plan (1) JORGE A (acute kidney injury) Assessment & Plan: Assessment: critical Respiratory failure/ patient extubated Acute renal failure/acute kidney injury related to multifactorial including sepsis. Diabetes mellitus and history of hypertension history of CVA. encephalopathy patient improving mental status much better and more awake hyperurecemia corrected , DC allopurinol Hyperphosphatemia corrected DC calcium acetate Shock liver Nephrotic syndrome proteinuria with 7 gram proteinuria based on protein to creatinine ratio Hypokalemia. Given potassium chloride repeat magnesium Recommendation Patient remains septic with leukocytosis Kidney function continued to improve patient is off dialysis Remove dialysis catheter as soon as possible because of the sepsis.. Discussed with ICU nurse Antibiotics management as per primary team Liver function continued to improve Status: Acute (2) Elevated liver enzymes Status: Acute (3) Elevated troponin level Status: Acute (4) Leukocytosis Status: Acute (5) Sepsis Status: Acute
--- NOTE | 2018-08-09 13:22 | CP.PCM.PN ---
Subjective - Date & Time of Evaluation Date of Evaluation: 08/09/18 Time of Evaluation: 08:00 - Subjective Subjective: awake extubated IV rx in progress c/o abd pain + fever Objective - Vital Signs/Intake and Output Vital Signs (last 24 hours): Temp Pulse Resp BP Pulse Ox 100.9 F H 81 33 H 178/84 H 95 08/09/18 12:26 08/09/18 12:00 08/09/18 12:00 08/09/18 12:00 08/09/18 12:00 Intake and Output: 08/09/18 08/09/18 06:59 18:59 Intake Total 490 718 Output Total 800 Balance -310 718 - Medications Medications: Current Medications Acetaminophen (Tylenol 650mg/20.3ml Solution Ud) 650 mg PO Q6 PRN PRN Reason: Fever>100.4 F Last Admin: 08/04/18 13:06 Dose: 650 mg Acetaminophen (Tylenol 325mg Tab) 650 mg PO Q6 PRN PRN Reason: Pain, moderate (4-7) Last Admin: 08/09/18 11:26 Dose: 650 mg Albuterol/Ipratropium (Duoneb 3 Mg/0.5 Mg (3 Ml) Ud) 3 ml INH RQ6 [facility] Last Admin: 08/09/18 07:46 Dose: 3 ml Dimethicone (Proshield Plus Skin Protectant) 1 applic TOP Q8 [facility] Last Admin: 08/09/18 08:32 Dose: 1 applic Ferrous Sulfate (Feosol Liq) 300 mg PO TID [facility] Vancomycin HCl 1 gm/ Sodium (Chloride) 250 mls @ 250 mls/hr IVPB MWF [facility]; Protocol Last Admin: 08/09/18 08:29 Dose: 250 mls/hr Cefepime HCl 1 gm/ Sodium (Chloride) 100 mls @ 100 mls/hr IVPB Q12 [facility]; Protocol Last Admin: 08/09/18 08:28 Dose: 100 mls/hr Insulin Human Regular (Humulin R) 0 units SC ACCU-CHECK [facility]; Protocol Last Admin: 08/09/18 11:25 Dose: 2 u Insulin Lispro Protam/Lispro Human (Humalog Mix 75/25) 5 units SC BID [facility]; Protocol Last Admin: 08/09/18 08:25 Dose: 5 units Labetalol HCl (Trandate) 20 mg IVP Q4 PRN PRN Reason: Systolic Blood Pressure Last Admin: 08/06/18 02:38 Dose: 20 mg Levetiracetam (Keppra) 500 mg PO BID [facility] Last Admin: 08/09/18 08:26 Dose: 500 mg Metoprolol Tartrate (Lopressor) 50 mg PO Q12 [facility] Last Admin: 08/09/18 08:28 Dose: 50 mg Ondansetron HCl (Zofran Inj) 4 mg IVP Q6 PRN PRN Reason: Nausea/Vomiting Last Admin: 08/08/18 01:04 Dose: 4 mg Polyethylene Glycol (Miralax) 17 gm PO HS [facility] Last Admin: 08/08/18 21:45 Dose: 17 gm Vitamin B Complex/Vit C/Folic Acid (Nephro-Everardo) 1 tab PO DAILY [facility] Last Admin: 08/09/18 08:29 Dose: 1 tab - Labs Labs: 08/09/18 04:20 08/09/18 04:20 PT 16.2 Seconds (9.8-13.1) H 08/04/18 10:28 INR 1.4 08/04/18 10:28 APTT 35.6 Seconds (25.6-37.1) 08/04/18 10:28 - Constitutional Appears: No Acute Distress, Chronically Ill - Head Exam Head Exam: NORMOCEPHALIC - Eye Exam Eye Exam: absent: Scleral icterus - ENT Exam ENT Exam: Mucous Membranes Dry - Neck Exam Neck Exam: absent: Lymphadenopathy - Respiratory Exam Respiratory Exam: Decreased Breath Sounds - Cardiovascular Exam Cardiovascular Exam: REGULAR RHYTHM - GI/Abdominal Exam GI & Abdominal Exam: Distended, Guarding, Soft, Tenderness, Diminished Bowel Sounds - Rectal Exam Rectal Exam: Deferred - Exam Exam: NORMAL INSPECTION - Extremities Exam Extremities Exam: absent: Pedal Edema - Back Exam Back Exam: absent: CVA tenderness (L), CVA tenderness (R) - Neurological Exam Neurological Exam: Alert, Awake, CN II-XII Intact Neuro motor strength exam: Left Upper Extremity: 3, Right Upper Extremity: 0, Left Lower Extremity: 3, Right Lower Extremity: 0 - Psychiatric Exam Psychiatric exam: Depressed Assessment and Plan (1) Sepsis Status: Acute (2) Change in mental state Status: Acute (3) History of CVA with residual deficit Status: Acute (4) Diabetes 1.5, managed as type 2 Status: Chronic (5) History of CVA (cerebrovascular accident) Status: Chronic (6) NSTEMI (non-ST elevated myocardial infarction) Status: Acute (7) JORGE A (acute kidney injury) Status: Acute (8) Pansinusitis Status: Acute - Assessment and Plan (Free Text) Assessment: Procalcitonin trending down now with abd pain/ ileus consider CT Abd/ Surgical eval add Flagyl
[2018-08-09 13:56] LABS: ANCA SCREEN NEGATIVE (NEGATIVE)
[2018-08-09] MEDS: Labetalol 5mg/ml (4ml) IVP PRN (16:19)
[2018-08-09] MEDS ORDERED: Magnesium Sulfate 1 gm in D5W 1 GM/100 ML BAG IVPB ONE (16:19)
[2018-08-09] MEDS: metroNIDAZOLE 500mg/100ml NS 100 ML IVPB SCH (16:20)
[2018-08-09] MEDS: Acetaminophen 650mg/20.3ml solution UD PO PRN (20:37)
[2018-08-09] MEDS: POLYETHYLENE GLYCOL 3350 17 GM/Dose PACKET PO SCH (21:04)
[2018-08-10] MEDS: Albuterol-Ipratrop 3 mg / 0.5 (3 ml) UD INH SCH ×4 (01:00→19:18)
[2018-08-10] MEDS: metroNIDAZOLE 500mg/100ml NS 100 ML IVPB SCH ×3 (01:45→16:54)
[2018-08-10] MEDS: Proshield Plus GEL TOP SCH ×3 (01:45→16:53)
[2018-08-10] MEDS: Labetalol 5mg/ml (4ml) IVP PRN (02:16)
[2018-08-10 03:16] LABS: ABG ALLEN TEST YES; ARTERIAL BLOOD GAS HCO3 27.2 mmol/L (21-28); ARTERIAL BLOOD GAS O2 SAT 97.2 % (95-98); ARTERIAL BLOOD GAS PCO2 32 mm/Hg (35-45); ARTERIAL BLOOD GAS PH 7.51 (7.35-7.45); ARTERIAL BLOOD GAS PO2 73 mm/Hg (80-100); ARTERIAL BLOOD GAS TCO2 26.5 mmol/L (22-28)
--- NOTE | 2018-08-10 03:19 | CP.CCUPN ---
CCU Subjective - Physician Review Events Since Last Encounter (Free Text): 08/10/18 03:32 Not feeling well and c/o abdominal pain CCU Objective - Vital Signs / Intake & Output Vital Signs (Last 4 hours): Vital Signs Temp Pulse Resp BP Pulse Ox 08/10/18 02:00 79 40 H 141/82 97 08/10/18 01:53 76 08/10/18 01:00 74 51 H 170/83 H 97 08/10/18 00:00 98.6 F 77 27 H 179/86 H 96 08/09/18 23:00 66 35 H 156/73 H 97 Intake and Output (Last 8hrs): Intake & Output 08/09/18 08/09/18 08/10/18 14:59 22:59 06:59 Intake Total 722 327 8 Output Total 900 Balance 722 -573 8 Intake: IV 12 12 8 Intake, Piggyback 350 200 Oral 360 115 Output: Urine 900 Urethral (Amaro) 900 Other: # Bowel Movements 1 - Physical Exam Head: Positive for: Atraumatic, Normocephalic Pupils: Positive for: PERRL Extroacular Muscles: Positive for: EOMI Conjunctiva: Positive for: Normal Mouth: Positive for: Moist Mucous Membranes Nose (Internal): Positive for: Normal Inspection Neck: Positive for: Normal Range of Motion Respiratory/Chest: Positive for: Accessory Muscle Use, Tachypneic. Negative for: Respiratory Distress Abdomen: Negative for: Peritoneal Signs, Rebound, Guarding, Hernias, Feeding Tubes, Ostomy Tubes Upper Extremity: Positive for: Normal Inspection - Medications Active Medications: Active Medications Generic Name Dose Route Start Last Admin Trade Name Freq PRN Reason Stop Dose Admin Acetaminophen 650 mg 08/04/18 09:45 08/09/18 20:37 Tylenol 650mg/20.3ml Solution Ud PO 650 mg Q6 PRN Administration Fever>100.4 F Acetaminophen 650 mg 08/08/18 18:01 08/09/18 11:26 Tylenol 325mg Tab PO 650 mg Q6 PRN Administration Pain, moderate (4-7) Albuterol/Ipratropium 3 ml 08/02/18 14:30 08/10/18 01:00 Duoneb 3 Mg/0.5 Mg (3 Ml) Ud INH 3 ml RQ6 [facility] Administration Dimethicone 1 applic 08/08/18 09:00 08/10/18 01:45 Proshield Plus Skin Protectant TOP 1 applic Q8 [facility] Administration Ferrous Sulfate 325 mg 08/09/18 17:00 08/09/18 16:19 Feosol PO 325 mg TID [facility] Administration Vancomycin HCl 1 gm/ Sodium 250 mls @ 250 mls/hr 08/07/18 09:00 08/09/18 08:29 Chloride IVPB 250 mls/hr MWF [facility] Administration Protocol Cefepime HCl 1 gm/ Sodium 100 mls @ 100 mls/hr 08/07/18 21:00 08/09/18 20:38 Chloride IVPB 100 mls/hr Q12 [facility] Administration Protocol Metronidazole 100 mls @ 100 mls/hr 08/09/18 17:00 08/10/18 01:45 Flagyl 500mg/100ml Ns IVPB 100 mls/hr Q8 [facility] Administration Protocol Insulin Human Regular 0 units 08/03/18 17:00 08/09/18 22:00 Humulin R SC Not Given ACCU-CHECK [facility] Protocol Insulin Lispro Protam/Lispro Human 5 units 08/09/18 09:00 08/09/18 16:20 Humalog Mix 75/25 SC 5 units BID [facility] Administration Protocol Ketorolac Tromethamine 30 mg 08/09/18 16:18 08/09/18 22:44 Toradol IVP 30 mg Q6 PRN Administration Pain, moderate (4-7) Labetalol HCl 20 mg 08/05/18 12:45 08/10/18 02:16 Trandate IVP 20 mg Q4 PRN Administration Systolic Blood Pressure Levetiracetam 500 mg 08/09/18 09:00 08/09/18 16:19 Keppra PO 500 mg BID [facility] Administration Metoprolol Tartrate 50 mg 08/09/18 09:00 08/09/18 20:50 Lopressor PO 50 mg Q12 [facility] Administration Ondansetron HCl 4 mg 08/08/18 00:52 08/08/18 01:04 Zofran Inj IVP 4 mg Q6 PRN Administration Nausea/Vomiting Polyethylene Glycol 17 gm 08/08/18 22:00 08/09/18 21:04 Miralax PO 17 gm HS [facility] Administration Vitamin B Complex/Vit C/Folic Acid 1 tab 08/06/18 09:00 08/09/18 08:29 Nephro-Everardo PO 1 tab DAILY [facility] Administration - Patient Studies Lab Studies: Lab Studies 08/09/18 08/09/18 08/09/18 Range/Units 20:50 16:30 13:01 WBC (4.8-10.8) K/uL RBC (3.80-5.20) Mil/uL Hgb (12.0-16.0) g/dL Hct (34.0-47.0) % MCV (81.0-99.0) fl MCH (27.0-31.0) pg MCHC (33.0-37.0) g/dL RDW (11.5-14.5) % Plt Count (130-400) K/uL Sodium (132-148) mmol/l Potassium (3.6-5.0) MMOL/L Chloride (98-107) mmol/L Carbon Dioxide (22-30) mmol/L Anion Gap (10-20) BUN (7-17) mg/dl Creatinine (0.7-1.2) mg/dl Est GFR ( Amer) Est GFR (Non-Af Amer) POC Glucose (mg/dL) 150 H 152 H (65-110) mg/dL Random Glucose (65-105) mg/dL Hemoglobin A1c (4.2-6.5) % Calcium (8.4-10.2) mg/dL Magnesium 1.4 L (1.6-2.3) MG/DL Iron (37-170) ug/dL TIBC (250-450) ug/dL % Saturation (20-55) % Total Bilirubin (0.2-1.3) mg/dl AST (14-36) U/L ALT (9-52) U/L Alkaline Phosphatase (38-126) U/L Total Protein (6.3-8.2) G/DL Albumin (3.5-5.0) g/dL Globulin (2.2-3.9) gm/dL Albumin/Globulin Ratio (1.0-2.1) Triglycerides (0-149) mg/DL Cholesterol (0-199) mg/dL LDL Cholesterol Direct (0-129) mg/dL HDL Cholesterol (30-70) MG/DL Vitamin B12 (239-931) pg/mL TSH 3rd Generation (0.46-4.68) mIU/ML ANCA Screen (NEGATIVE) c-ANCA Titer Proteinase 3 (PR3) (<1.0) AI p-ANCA Titer Atypical p-ANCA Titer Myeloperoxidase Ab (<1.0) AI 08/09/18 08/09/18 08/09/18 Range/Units 10:58 04:50 04:20 WBC 21.0 H (4.8-10.8) K/uL RBC 3.50 L (3.80-5.20) Mil/uL Hgb 9.0 L (12.0-16.0) g/dL Hct 27.4 L (34.0-47.0) % MCV 78.3 L (81.0-99.0) fl MCH 25.8 L (27.0-31.0) pg MCHC 32.9 L (33.0-37.0) g/dL RDW 19.2 H (11.5-14.5) % Plt Count 241 (130-400) K/uL Sodium (132-148) mmol/l Potassium (3.6-5.0) MMOL/L Chloride (98-107) mmol/L Carbon Dioxide (22-30) mmol/L Anion Gap (10-20) BUN (7-17) mg/dl Creatinine (0.7-1.2) mg/dl Est GFR ( Amer) Est GFR (Non-Af Amer) POC Glucose (mg/dL) 206 H 187 H (65-110) mg/dL Random Glucose (65-105) mg/dL Hemoglobin A1c (4.2-6.5) % Calcium (8.4-10.2) mg/dL Magnesium (1.6-2.3) MG/DL Iron (37-170) ug/dL TIBC (250-450) ug/dL % Saturation (20-55) % Total Bilirubin (0.2-1.3) mg/dl AST (14-36) U/L ALT (9-52) U/L Alkaline Phosphatase (38-126) U/L Total Protein (6.3-8.2) G/DL Albumin (3.5-5.0) g/dL Globulin (2.2-3.9) gm/dL Albumin/Globulin Ratio (1.0-2.1) Triglycerides (0-149) mg/DL Cholesterol (0-199) mg/dL LDL Cholesterol Direct (0-129) mg/dL HDL Cholesterol (30-70) MG/DL Vitamin B12 (239-931) pg/mL TSH 3rd Generation (0.46-4.68) mIU/ML ANCA Screen (NEGATIVE) c-ANCA Titer Proteinase 3 (PR3) (<1.0) AI p-ANCA Titer Atypical p-ANCA Titer Myeloperoxidase Ab (<1.0) AI 08/09/18 08/09/18 08/09/18 Range/Units 04:20 04:20 04:20 WBC (4.8-10.8) K/uL RBC (3.80-5.20) Mil/uL Hgb (12.0-16.0) g/dL Hct (34.0-47.0) % MCV (81.0-99.0) fl MCH (27.0-31.0) pg MCHC (33.0-37.0) g/dL RDW (11.5-14.5) % Plt Count (130-400) K/uL Sodium 147 (132-148) mmol/l Potassium 3.3 L (3.6-5.0) MMOL/L Chloride 104 (98-107) mmol/L Carbon Dioxide 27 (22-30) mmol/L Anion Gap 19 (10-20) BUN 47 H (7-17) mg/dl Creatinine 2.9 H (0.7-1.2) mg/dl Est GFR ( Amer) 20 Est GFR (Non-Af Amer) 17 POC Glucose (mg/dL) (65-110) mg/dL Random Glucose 198 H (65-105) mg/dL Hemoglobin A1c 6.2 (4.2-6.5) % Calcium 8.8 (8.4-10.2) mg/dL Magnesium (1.6-2.3) MG/DL Iron 29 L (37-170) ug/dL TIBC 268 (250-450) ug/dL % Saturation 11 L (20-55) % Total Bilirubin 1.8 H (0.2-1.3) mg/dl AST 87 H D (14-36) U/L ALT 232 H D (9-52) U/L Alkaline Phosphatase 108 (38-126) U/L Total Protein 7.9 (6.3-8.2) G/DL Albumin 3.4 L (3.5-5.0) g/dL Globulin 4.5 H (2.2-3.9) gm/dL Albumin/Globulin Ratio 0.8 L (1.0-2.1) Triglycerides 97 (0-149) mg/DL Cholesterol 106 (0-199) mg/dL LDL Cholesterol Direct 57 (0-129) mg/dL HDL Cholesterol 33 (30-70) MG/DL Vitamin B12 901 (239-931) pg/mL TSH 3rd Generation 2.96 (0.46-4.68) mIU/ML ANCA Screen (NEGATIVE) c-ANCA Titer Proteinase 3 (PR3) (<1.0) AI p-ANCA Titer Atypical p-ANCA Titer Myeloperoxidase Ab (<1.0) AI 08/05/18 Range/Units 04:00 WBC (4.8-10.8) K/uL RBC (3.80-5.20) Mil/uL Hgb (12.0-16.0) g/dL Hct (34.0-47.0) % MCV (81.0-99.0) fl MCH (27.0-31.0) pg MCHC (33.0-37.0) g/dL RDW (11.5-14.5) % Plt Count (130-400) K/uL Sodium (132-148) mmol/l Potassium (3.6-5.0) MMOL/L Chloride (98-107) mmol/L Carbon Dioxide (22-30) mmol/L Anion Gap (10-20) BUN (7-17) mg/dl Creatinine (0.7-1.2) mg/dl Est GFR ( Amer) Est GFR (Non-Af Amer) POC Glucose (mg/dL) (65-110) mg/dL Random Glucose (65-105) mg/dL Hemoglobin A1c (4.2-6.5) % Calcium (8.4-10.2) mg/dL Magnesium (1.6-2.3) MG/DL Iron (37-170) ug/dL TIBC (250-450) ug/dL % Saturation (20-55) % Total Bilirubin (0.2-1.3) mg/dl AST (14-36) U/L ALT (9-52) U/L Alkaline Phosphatase (38-126) U/L Total Protein (6.3-8.2) G/DL Albumin (3.5-5.0) g/dL Globulin (2.2-3.9) gm/dL Albumin/Globulin Ratio (1.0-2.1) Triglycerides (0-149) mg/DL Cholesterol (0-199) mg/dL LDL Cholesterol Direct (0-129) mg/dL HDL Cholesterol (30-70) MG/DL Vitamin B12 (239-931) pg/mL TSH 3rd Generation (0.46-4.68) mIU/ML ANCA Screen Negative (NEGATIVE) c-ANCA Titer TNP Proteinase 3 (PR3) <1.0 (<1.0) AI p-ANCA Titer TNP Atypical p-ANCA Titer TNP Myeloperoxidase Ab <1.0 (<1.0) AI Laboratory Results - last 24 hr 08/05/18 08/09/18 08/09/18 04:00 04:20 04:20 WBC RBC Hgb Hct MCV MCH MCHC RDW Plt Count Sodium 147 Potassium 3.3 L Chloride 104 Carbon Dioxide 27 Anion Gap 19 BUN 47 H Creatinine 2.9 H Est GFR ( Amer) 20 Est GFR (Non-Af Amer) 17 POC Glucose (mg/dL) Random Glucose 198 H Hemoglobin A1c Calcium 8.8 Magnesium Iron 29 L TIBC 268 % Saturation 11 L Total Bilirubin 1.8 H AST 87 H D ALT 232 H D Alkaline Phosphatase 108 Total Protein 7.9 Albumin 3.4 L Globulin 4.5 H Albumin/Globulin Ratio 0.8 L Triglycerides 97 Cholesterol 106 LDL Cholesterol Direct 57 HDL Cholesterol 33 Vitamin B12 901 TSH 3rd Generation 2.96 ANCA Screen Negative c-ANCA Titer TNP Proteinase 3 (PR3) <1.0 p-ANCA Titer TNP Atypical p-ANCA Titer TNP Myeloperoxidase Ab <1.0 08/09/18 08/09/18 08/09/18 04:20 04:20 04:50 WBC 21.0 H RBC 3.50 L Hgb 9.0 L Hct 27.4 L MCV 78.3 L MCH 25.8 L MCHC 32.9 L RDW 19.2 H Plt Count 241 Sodium Potassium Chloride Carbon Dioxide Anion Gap BUN Creatinine Est GFR ( Amer) Est GFR (Non-Af Amer) POC Glucose (mg/dL) 187 H Random Glucose Hemoglobin A1c 6.2 Calcium Magnesium Iron TIBC % Saturation Total Bilirubin AST ALT Alkaline Phosphatase Total Protein Albumin Globulin Albumin/Globulin Ratio Triglycerides Cholesterol LDL Cholesterol Direct HDL Cholesterol Vitamin B12 TSH 3rd Generation ANCA Screen c-ANCA Titer Proteinase 3 (PR3) p-ANCA Titer Atypical p-ANCA Titer Myeloperoxidase Ab 08/09/18 08/09/18 08/09/18 10:58 13:01 16:30 WBC RBC Hgb Hct MCV MCH MCHC RDW Plt Count Sodium Potassium Chloride Carbon Dioxide Anion Gap BUN Creatinine Est GFR ( Amer) Est GFR (Non-Af Amer) POC Glucose (mg/dL) 206 H 152 H Random Glucose Hemoglobin A1c Calcium Magnesium 1.4 L Iron TIBC % Saturation Total Bilirubin AST ALT Alkaline Phosphatase Total Protein Albumin Globulin Albumin/Globulin Ratio Triglycerides Cholesterol LDL Cholesterol Direct HDL Cholesterol Vitamin B12 TSH 3rd Generation ANCA Screen c-ANCA Titer Proteinase 3 (PR3) p-ANCA Titer Atypical p-ANCA Titer Myeloperoxidase Ab 08/09/18 20:50 WBC RBC Hgb Hct MCV MCH MCHC RDW Plt Count Sodium Potassium Chloride Carbon Dioxide Anion Gap BUN Creatinine Est GFR ( Amer) Est GFR (Non-Af Amer) POC Glucose (mg/dL) 150 H Random Glucose Hemoglobin A1c Calcium Magnesium Iron TIBC % Saturation Total Bilirubin AST ALT Alkaline Phosphatase Total Protein Albumin Globulin Albumin/Globulin Ratio Triglycerides Cholesterol LDL Cholesterol Direct HDL Cholesterol Vitamin B12 TSH 3rd Generation ANCA Screen c-ANCA Titer Proteinase 3 (PR3) p-ANCA Titer Atypical p-ANCA Titer Myeloperoxidase Ab Fingerstick Blood Sugar Results: 150 Critical Care Progress Note - Nutrition Nutrition: Nutrition Category Date Time Status Dysphagia/Modified Consistency Diet [DIET] Diets 08/08/18 Dinner Active Assessment/Plan - Assessment and Plan (Free Text) Assessment: 58 YO AAF admitted with seizure and AMS develped VDRF, JORGE A requring HD and acute liver injury with enzymes in 1000s as well as severe lactic acidosis with PH of 7.1 and lactate of 8.5. Also persistent fever. Was treated with broad spec ABx and mech vent and HD. Improved and self extubated. HD cath was removed yesterday as Cr improving off HD. Neurological status improving. LFTs trending down; however, still has persistent fever on Cefepime, Vanco and Flagyl. WBC which initially improved is again trending up and patient c/o abdominal pain. Abdominal X-ray done the day before yesterday concerning for ileus vs distal bowel obstruction. Since yesterday RR gonging up. Was called by nurse to assess the patient as her RR in now in 50s/min. Upon my exam patient is in respiratory distress. Lungs with coarse breathing sounds b/l. S1/S2, pulses full and symmetric b/l. Abdomen is severely tender with guarding and possible rebound but not rigid. No audible bowel sounds. Ordered bipap; however, patient not cooperative. She is AAOx1 and mentation improved as compared to the time of admission but still not at the level that she can understand her condition and tolerate treatment modalities. Will order stat ABG, lactic acid, CBC and CMP. Possible metabolic acidosis with compensatory tachypnea. If any signs of fatigue might require re-intubation. Will order stat CT chest, abdomen and pelvis. I personally reviewed the chart including lab, Xray and EKG at the bed side. I spent total of 43 min of critical care time trying to stabilize this critically unstable patient excluding time spent for any procedures.
[2018-08-10 03:20] LABS: BASO % 0.1 % (0.0-2.0); EOS # 0.1 K/uL (0.0-0.7); EOS % 0.6 % (0.0-4.0); HEMOGLOBIN 8.5 g/dL (12.0-16.0); LYMPH # 0.4 K/uL (1.0-4.3); LYMPH % 2.5 % (20.0-40.0); MEAN CELL VOLUME 77.8 fl (81.0-99.0); MEAN CORPUSCULAR HEMOGLOBIN 25.4 pg (27.0-31.0); MEAN CORPUSCULAR HGB CONC 32.7 g/dL (33.0-37.0); MEAN PLATELET VOLUME 10.2 fl (7.2-11.7); MONO # 1.4 K/uL (0.0-0.8); MONO % 7.9 % (0.0-10.0); NEUT # 15.9 K/uL (1.8-7.0); NEUT % 88.9 % (50.0-75.0); PLATELET COUNT 257 K/uL (130-400); RBC 3.35 Mil/uL (3.80-5.20); RED CELL DISTRIBUTION WIDTH 19.1 % (11.5-14.5); WHITE BLOOD COUNT 17.8 K/uL (4.8-10.8)
[2018-08-10 03:44] LABS: ALB/GLOB RATIO 0.8 (1.0-2.1); ALBUMIN 3.4 g/dL (3.5-5.0); CALCIUM 8.9 mg/dL (8.4-10.2)
[2018-08-10] MEDS ORDERED: HYDROmorphone 0.5 mg/0.5 ml ISec IVP ONE (03:45)
[2018-08-10 04:28] LABS: EOSINOPHIL 1 % (0-7); LYMPHOCYTE 2 % (20-50); MONOCYTE 7 % (0-10); NEUTROPHIL 90 % (42-75); PLATELET ESTIMATE NORMAL (NORMAL); TOTAL CELLS COUNTED 100
[2018-08-10 04:30] LABS: ANISOCYTOSIS SLIGHT; HYPOCHROMIC SLIGHT; OVALOCYTES SLIGHT; STOMATOCYTES SLIGHT
[2018-08-10] MEDS: Insulin Regular 100 units/ml SC SCH ×6 (06:51→22:22)
[2018-08-10] MEDS: Acetaminophen 650mg/20.3ml solution UD PO PRN ×2 (07:39→20:45)
[2018-08-10] MEDS: Insulin Lispro Mix 75/25 100 units/ml (HumaLog) 10ml SC SCH ×2 (08:20→16:54)
[2018-08-10] MEDS: Cefepime 1 GM in Sodium Chloride 0.9% 100 ML IVPB SCH ×2 (08:21→20:20)
[2018-08-10] MEDS: Multivitamin Vitamin B Complex (Nephro-Vite) Tab PO SCH (08:24)
--- NOTE | 2018-08-10 09:48 | CP.PCM.PN ---
Subjective - Date & Time of Evaluation Date of Evaluation: 08/10/18 Time of Evaluation: 09:49 - Subjective Subjective: STILL CHRONICALLY ILL HAS SOB Objective - Vital Signs/Intake and Output Vital Signs (last 24 hours): Temp Pulse Resp BP Pulse Ox 100.7 F H 72 36 H 177/78 H 93 L 08/10/18 08:39 08/10/18 08:24 08/10/18 08:00 08/10/18 08:24 08/10/18 08:00 Intake and Output: 08/10/18 08/10/18 06:59 18:59 Intake Total 339 180 Output Total 600 Balance -261 180 - Medications Medications: Current Medications Acetaminophen (Tylenol 650mg/20.3ml Solution Ud) 650 mg PO Q6 PRN PRN Reason: Fever>100.4 F Last Admin: 08/10/18 07:39 Dose: 650 mg Acetaminophen (Tylenol 325mg Tab) 650 mg PO Q6 PRN PRN Reason: Pain, moderate (4-7) Last Admin: 08/09/18 11:26 Dose: 650 mg Albuterol/Ipratropium (Duoneb 3 Mg/0.5 Mg (3 Ml) Ud) 3 ml INH RQ6 [place] Last Admin: 08/10/18 08:05 Dose: 3 ml Dimethicone (Proshield Plus Skin Protectant) 1 applic TOP Q8 [place] Last Admin: 08/10/18 08:25 Dose: 1 applic Ferrous Sulfate (Feosol) 325 mg PO TID [facility] Last Admin: 08/10/18 08:23 Dose: 325 mg Furosemide (Lasix) 40 mg IVP DAILY [facility] Vancomycin HCl 1 gm/ Sodium (Chloride) 250 mls @ 250 mls/hr IVPB MWF [facility]; Protocol Last Admin: 08/09/18 08:29 Dose: 250 mls/hr Cefepime HCl 1 gm/ Sodium (Chloride) 100 mls @ 100 mls/hr IVPB Q12 [facility]; Protocol Last Admin: 08/10/18 08:21 Dose: 100 mls/hr Metronidazole (Flagyl 500mg/100ml Ns) 100 mls @ 100 mls/hr IVPB Q8 [facility]; Protocol Last Admin: 08/10/18 08:19 Dose: 100 mls/hr Dextrose (Dextrose 5% In Water 1000 Ml) 1,000 mls @ 80 mls/hr IV .[id number] [facility] Stop: 08/11/18 06:41 Last Admin: 08/10/18 06:57 Dose: 80 mls/hr Insulin Human Regular (Humulin R) 0 units SC ACCU-CHECK [facility]; Protocol Last Admin: 08/10/18 06:53 Dose: 1 u Insulin Lispro Protam/Lispro Human (Humalog Mix 75/25) 5 units SC BID [facility]; Protocol Last Admin: 08/10/18 08:20 Dose: 5 units Ketorolac Tromethamine (Toradol) 30 mg IVP Q6 PRN PRN Reason: Pain, moderate (4-7) Last Admin: 08/09/18 22:44 Dose: 30 mg Labetalol HCl (Trandate) 20 mg IVP Q4 PRN PRN Reason: Systolic Blood Pressure Last Admin: 08/10/18 02:16 Dose: 20 mg Levetiracetam (Keppra) 500 mg PO BID [facility] Last Admin: 08/10/18 08:24 Dose: 500 mg Metoprolol Tartrate (Lopressor) 50 mg PO Q12 [facility] Last Admin: 08/10/18 08:24 Dose: 50 mg Ondansetron HCl (Zofran Inj) 4 mg IVP Q6 PRN PRN Reason: Nausea/Vomiting Last Admin: 08/08/18 01:04 Dose: 4 mg Polyethylene Glycol (Miralax) 17 gm PO HS [facility] Last Admin: 08/09/18 21:04 Dose: 17 gm Vitamin B Complex/Vit C/Folic Acid (Nephro-Everardo) 1 tab PO DAILY [facility] Last Admin: 08/10/18 08:24 Dose: 1 tab - Labs Labs: 08/10/18 02:55 08/10/18 02:55 PT 16.2 Seconds (9.8-13.1) H 08/04/18 10:28 INR 1.4 08/04/18 10:28 APTT 35.6 Seconds (25.6-37.1) 08/04/18 10:28 - Constitutional Appears: Chronically Ill - Head Exam Head Exam: ATRAUMATIC, NORMAL INSPECTION, NORMOCEPHALIC - Eye Exam Eye Exam: EOMI, Normal appearance, PERRL Pupil Exam: NORMAL ACCOMODATION, PERRL - ENT Exam ENT Exam: Mucous Membranes Moist, Normal Exam - Neck Exam Neck Exam: Full ROM, Normal Inspection. absent: Lymphadenopathy - Respiratory Exam Respiratory Exam: Decreased Breath Sounds, Prolonged Expiratory Phase, Rales Additional comments: TACHYPNEIC - Cardiovascular Exam Cardiovascular Exam: REGULAR RHYTHM, +S1, +S2. absent: Murmur - GI/Abdominal Exam GI & Abdominal Exam: Soft, Normal Bowel Sounds. absent: Tenderness - Rectal Exam Rectal Exam: NORMAL INSPECTION - Extremities Exam Extremities Exam: Full ROM, Normal Capillary Refill, Normal Inspection. absent: Joint Swelling, Pedal Edema - Back Exam Back Exam: NORMAL INSPECTION - Neurological Exam Neurological Exam: Alert, Awake, CN II-XII Intact - Psychiatric Exam Psychiatric exam: Normal Affect, Normal Mood - Skin Skin Exam: Dry, Intact, Normal Color, Warm Assessment and Plan - Assessment and Plan (Free Text) Assessment: RESP FAILURE--EXTUBATED PLEURAL EFFUSIONS AND ATELECTASES ON CT SCAN OF CHEST SEPSIS Plan: WILL GIVE LASIX IV TODAY MAY NEED THORACENTESES IF EFFUSION PERSISTS
--- NOTE | 2018-08-10 10:32 | CP.PCM.PN ---
Subjective - Date & Time of Evaluation Date of Evaluation: 08/10/18 Time of Evaluation: 10:00 - Subjective Subjective: Patient awake Trying to verbalize Vital signs noted Objective - Vital Signs/Intake and Output Vital Signs (last 24 hours): Temp Pulse Resp BP Pulse Ox 100.7 F H 73 33 H 177/78 H 94 L 08/10/18 08:39 08/10/18 10:00 08/10/18 10:00 08/10/18 10:10 08/10/18 10:00 Intake and Output: 08/10/18 08/10/18 06:59 18:59 Intake Total 339 580 Output Total 600 Balance -261 580 - Medications Medications: Current Medications Acetaminophen (Tylenol 650mg/20.3ml Solution Ud) 650 mg PO Q6 PRN PRN Reason: Fever>100.4 F Last Admin: 08/10/18 07:39 Dose: 650 mg Acetaminophen (Tylenol 325mg Tab) 650 mg PO Q6 PRN PRN Reason: Pain, moderate (4-7) Last Admin: 08/09/18 11:26 Dose: 650 mg Albuterol/Ipratropium (Duoneb 3 Mg/0.5 Mg (3 Ml) Ud) 3 ml INH RQ6 [facility] Last Admin: 08/10/18 08:05 Dose: 3 ml Dimethicone (Proshield Plus Skin Protectant) 1 applic TOP Q8 [facility] Last Admin: 08/10/18 08:25 Dose: 1 applic Ferrous Sulfate (Feosol) 325 mg PO TID [facility] Last Admin: 08/10/18 08:23 Dose: 325 mg Furosemide (Lasix) 40 mg IVP DAILY [facility] Last Admin: 08/10/18 10:10 Dose: 40 mg Hydromorphone HCl (Dilaudid) 1 mg IVP Q4 PRN PRN Reason: Pain, moderate (4-7) Last Admin: 08/10/18 10:10 Dose: 1 mg Vancomycin HCl 1 gm/ Sodium (Chloride) 250 mls @ 250 mls/hr IVPB MWF [facility]; Prot ocol Last Admin: 08/09/18 08:29 Dose: 250 mls/hr Cefepime HCl 1 gm/ Sodium (Chloride) 100 mls @ 100 mls/hr IVPB Q12 [facility]; Protocol Last Admin: 08/10/18 08:21 Dose: 100 mls/hr Metronidazole (Flagyl 500mg/100ml Ns) 100 mls @ 100 mls/hr IVPB Q8 [facility]; Protocol Last Admin: 08/10/18 08:19 Dose: 100 mls/hr Insulin Human Regular (Humulin R) 0 units SC ACCU-CHECK [facility]; Protocol Last Admin: 08/10/18 06:53 Dose: 1 u Insulin Lispro Protam/Lispro Human (Humalog Mix 75/25) 5 units SC BID [facility]; Protocol Last Admin: 08/10/18 08:20 Dose: 5 units Ketorolac Tromethamine (Toradol) 30 mg IVP Q6 PRN PRN Reason: Pain, moderate (4-7) Last Admin: 08/09/18 22:44 Dose: 30 mg Labetalol HCl (Trandate) 20 mg IVP Q4 PRN PRN Reason: Systolic Blood Pressure Last Admin: 08/10/18 02:16 Dose: 20 mg Levetiracetam (Keppra) 500 mg PO BID [facility] Last Admin: 08/10/18 08:24 Dose: 500 mg Metoprolol Tartrate (Lopressor) 50 mg PO Q12 [facility] Last Admin: 08/10/18 08:24 Dose: 50 mg Ondansetron HCl (Zofran Inj) 4 mg IVP Q6 PRN PRN Reason: Nausea/Vomiting Last Admin: 08/08/18 01:04 Dose: 4 mg Polyethylene Glycol (Miralax) 17 gm PO HS [facility] Last Admin: 08/09/18 21:04 Dose: 17 gm Vitamin B Complex/Vit C/Folic Acid (Nephro-Everardo) 1 tab PO DAILY [facility] Last Admin: 08/10/18 08:24 Dose: 1 tab - Labs Labs: 08/10/18 02:55 08/10/18 02:55 PT 16.2 Seconds (9.8-13.1) H 08/04/18 10:28 INR 1.4 08/04/18 10:28 APTT 35.6 Seconds (25.6-37.1) 08/04/18 10:28 - Constitutional Appears: No Acute Distress - Eye Exam Eye Exam: Conjunctival injection - ENT Exam ENT Exam: Mucous Membranes Moist - Respiratory Exam Respiratory Exam: Rhonchi. absent: Chest Wall Tenderness - Cardiovascular Exam Cardiovascular Exam: absent: Gallop, JVD, Rubs - GI/Abdominal Exam GI & Abdominal Exam: Soft, Normal Bowel Sounds - Extremities Exam Extremities Exam: absent: Calf Tenderness - Back Exam Back Exam: absent: CVA tenderness (L), CVA tenderness (R) - Neurological Exam Neurological Exam: Awake - Skin Skin Exam: absent: Cyanosis Assessment and Plan (1) JORGE A (acute kidney injury) Assessment & Plan: Assessment: critical Respiratory failure/ patient extubated Acute renal failure/acute kidney injury related to multifactorial including sepsis. Diabetes mellitus and history of hypertension history of CVA. encephalopathy patient improving mental status much better and more awake hyperurecemia corrected , DC allopurinol Hyperphosphatemia corrected DC calcium acetate Shock liver Nephrotic syndrome proteinuria with 7 gram proteinuria based on protein to creatinine ratio Hypokalemia. Given potassium chloride Hypomagnesemia Hypernatremia sodium up 150 Recommendation IV magnesium just being given Potassium chloride need supplement I agree with Lasix patient is congested Gentle D5W Status: Acute (2) Elevated liver enzymes Status: Acute (3) Elevated troponin level Status: Acute (4) Leukocytosis Status: Acute (5) Sepsis Status: Acute
--- NOTE | 2018-08-10 12:39 | CP.PCM.PN ---
Subjective - Date & Time of Evaluation Date of Evaluation: 08/10/18 Time of Evaluation: 12:37 - Subjective Subjective: Neuro Follow-Up Note: Mrs. Landis was evaluated this afternoon in the ICU. No family at bedside during time of exam. She has been downgraded to telemetry. She remains extubated and is still awake, verbal, and able to follow commands. Pt is still c/o generalized abd pain (about 5-6/10 now). She still appears to have some SOB, however, she denies any respiratory complaints. Denies h/a, dizziness, visual changes, chest pain, palpitations, cough, n/v/d, paresthesias. Objective - Vital Signs/Intake and Output Vital Signs (last 24 hours): Temp Pulse Resp BP Pulse Ox 100.7 F H 73 33 H 177/78 H 94 L 08/10/18 08:39 08/10/18 10:00 08/10/18 10:00 08/10/18 10:10 08/10/18 10:00 Intake and Output: 08/10/18 08/10/18 06:59 18:59 Intake Total 339 580 Output Total 600 Balance -261 580 - Medications Medications: Current Medications Acetaminophen (Tylenol 650mg/20.3ml Solution Ud) 650 mg PO Q6 PRN PRN Reason: Fever>100.4 F Last Admin: 08/10/18 07:39 Dose: 650 mg Acetaminophen (Tylenol 325mg Tab) 650 mg PO Q6 PRN PRN Reason: Pain, moderate (4-7) Last Admin: 08/09/18 11:26 Dose: 650 mg Albuterol/Ipratropium (Duoneb 3 Mg/0.5 Mg (3 Ml) Ud) 3 ml INH RQ6 [facility] Last Admin: 08/10/18 08:05 Dose: 3 ml Dimethicone (Proshield Plus Skin Protectant) 1 applic TOP Q8 [place] Last Admin: 08/10/18 08:25 Dose: 1 applic Ferrous Sulfate (Feosol) 325 mg PO TID [facility] Last Admin: 08/10/18 12:34 Dose: 325 mg Furosemide (Lasix) 40 mg IVP DAILY [facility] Last Admin: 08/10/18 10:10 Dose: 40 mg Hydromorphone HCl (Dilaudid) 1 mg IVP Q4 PRN PRN Reason: Pain, moderate (4-7) Last Admin: 08/10/18 10:10 Dose: 1 mg Vancomycin HCl 1 gm/ Sodium (Chloride) 250 mls @ 250 mls/hr IVPB MWF [facility]; Protocol Last Admin: 08/09/18 08:29 Dose: 250 mls/hr Cefepime HCl 1 gm/ Sodium (Chloride) 100 mls @ 100 mls/hr IVPB Q12 [facility]; Protocol Last Admin: 08/10/18 08:21 Dose: 100 mls/hr Metronidazole (Flagyl 500mg/100ml Ns) 100 mls @ 100 mls/hr IVPB Q8 [facility]; Protocol Last Admin: 08/10/18 08:19 Dose: 100 mls/hr Insulin Human Regular (Humulin R) 0 units SC ACCU-CHECK [facility]; Protocol Last Admin: 08/10/18 12:35 Dose: 1 u Insulin Lispro Protam/Lispro Human (Humalog Mix 75/25) 5 units SC BID [facility]; Protocol Last Admin: 08/10/18 08:20 Dose: 5 units Ketorolac Tromethamine (Toradol) 30 mg IVP Q6 PRN PRN Reason: Pain, moderate (4-7) Last Admin: 08/09/18 22:44 Dose: 30 mg Labetalol HCl (Trandate) 20 mg IVP Q4 PRN PRN Reason: Systolic Blood Pressure Last Admin: 08/10/18 02:16 Dose: 20 mg Levetiracetam (Keppra) 500 mg PO BID [facility] Last Admin: 08/10/18 08:24 Dose: 500 mg Metoprolol Tartrate (Lopressor) 50 mg PO Q12 [facility] Last Admin: 08/10/18 08:24 Dose: 50 mg Ondansetron HCl (Zofran Inj) 4 mg IVP Q6 PRN PRN Reason: Nausea/Vomiting Last Admin: 08/08/18 01:04 Dose: 4 mg Polyethylene Glycol (Miralax) 17 gm PO HS [facility] Last Admin: 08/09/18 21:04 Dose: 17 gm Vitamin B Complex/Vit C/Folic Acid (Nephro-Everardo) 1 tab PO DAILY [facility] Last Admin: 08/10/18 08:24 Dose: 1 tab - Labs Labs: 08/10/18 02:55 08/10/18 02:55 PT 16.2 Seconds (9.8-13.1) H 08/04/18 10:28 INR 1.4 08/04/18 10:28 APTT 35.6 Seconds (25.6-37.1) 08/04/18 10:28 - Constitutional Appears: Other (grimacing and c/o abd pain during time of exam) - Head Exam Head Exam: ATRAUMATIC, NORMAL INSPECTION, NORMOCEPHALIC - Eye Exam Eye Exam: EOMI, Normal appearance, PERRL Pupil Exam: NORMAL ACCOMODATION, PERRL - ENT Exam ENT Exam: Mucous Membranes Moist - Neck Exam Neck Exam: Normal Inspection - Respiratory Exam Respiratory Exam: absent: NORMAL BREATHING PATTERN (sob noted) - Cardiovascular Exam Cardiovascular Exam: Irregular Rhythm - GI/Abdominal Exam GI & Abdominal Exam: Tenderness (to general abd area) - Extremities Exam Extremities Exam: absent: Calf Tenderness, Full ROM, Pedal Edema Additional comments: RUE and RLE flaccid 2/2 previous CVA Able to move LUE and LLE. - Neurological Exam Neurological Exam: Alert, Awake Neuro motor strength exam: Left Upper Extremity: 3 (bid analyst 4/5), Right Upper Extremity: 0, Left Lower Extremity: 3 (plantar flexion 3/5), Right Lower Extremity: 0 Additional comments: Pt is awake, alert, verbal, follows commands. Oriented to place. RUE and RLE flaccid 2/2 previous CVA Able to move LUE and LLE, still has slightly weakened bid analyst Sensation intact b/l No tremors Toes down doing left side; plantar response difficult to elicit on right side. - Psychiatric Exam Psychiatric exam: Normal Mood - Skin Skin Exam: Normal Color Assessment and Plan (1) Toxic metabolic encephalopathy Assessment & Plan: Imaging reviewed: -Brain MRI (08/02/18): 1. No acute intracranial abnormality. 2. Cystic encephalomalacia and gliosis in the left pickard radiata and basal ganglia, sequela of remote MCA territory infarction. 3. Mild chronic microangiopathic changes and mild age-related global parenchymal volume loss. 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 4. Pansinusitis, with a complicated retention cyst/polyp in the right maxillary sinus. Fluid in the sphenoid sinus may represent acute sinusitis in the appropriate clinical setting. Bilateral mastoid effusions. -EEG (repeat; 08/01/18): This is an abnormal EEG record that demonstrate the presence of severe non specific diffuse disturbance of cortical activity, this is keeping with a diffuse abbasi matter dysfunction, these findings re not specific. These type of EEG is usually seen in toxic metabolic encephalopathies , hypoxic-ischemic brain injury among others, clinical correlation is recommended. The EEG look similar to the previous video EEG study of 07/29, 07/30. No seizures. Patient is not in status epilepticus. -CT Head (07/30/18): No acute intracranial abnormalities. No significant findings to account for the clinical presentation. No significant interval change compared to the prior examination(s). -CT Head (07/28/18): No acute intracranial abnormalities. No significant findings to account for the clinical presentation. Extensive postoperative changes described above. -EEG (07/30/18): shows burst suppression per Dr. Novak. -ECHO (07/30/18) done: 50-55% -Carotid and Vertebral U/S still pending--will f/u once it can be completed. If pt is able to tolerate MRA Head and Neck, that can be done as well. Notify neuro for any abnormal findings. -Continue current medications and treatment of other acute medical issues. -Notify neuro team of any acute changes to pt's condition. Otherwise, pt is continuing to improve neurologically. -No further neuro recommendations at this time. If family has concerns or questions, please feel free to contact me. Please reconsult prn. Thank you for allowing us to participate in this pt's care. Diane Linder DNP, [employer] Case discussed with Dr. Novak Status: Acute
--- NOTE | 2018-08-10 13:56 | CT ---
Date of service: 08/10/2018 PROCEDURE: CT Chest without contrast HISTORY: respiratory distress COMPARISON: Plain radiograph from 08/08/2018. TECHNIQUE: Contiguous axial images were obtained through the chest without intravenous contrast enhancement. Sagittal and coronal reconstructions were performed. Radiation dose: Total exam DLP = 578.66 mGy-cm. This CT exam was performed using one or more of the following dose reduction techniques: Automated exposure control, adjustment of the mA and/or kV according to patient size, and/or use of iterative reconstruction technique. FINDINGS: LUNGS: There is patchy ground-glass attenuation with interlobular septal thickening in the lungs, worse on the right. There is more confluent airspace disease in the posterior segment of the right upper lobe. There is also airspace disease in the right lower lobe. There are no endobronchial lesions. MEDIASTINUM: Unremarkable thoracic aorta. No aneurysm. There is mild cardiomegaly. Main pulmonary artery is dilated and measures 3.8 cm. No vascular congestion. No lymphadenopathy. There are mild aortic atherosclerotic calcifications present. PLEURA: Large right and small left pleural effusions. No pneumothorax. BONES: No fracture. No destructive lesion. UPPER ABDOMEN: Grossly unremarkable. OTHER FINDINGS: Right IJV line terminates at the cavoatrial junction. Status post aortic valve replacement. IMPRESSION: 1. Confluent airspace disease in the right lower lobe may represent pneumonia. 2. Congestive heart failure, patchy ground-glass attenuation in both lungs with interlobular septal thickening and more confluent airspace disease in the posterior segment of the right upper lobe likely related to alveolar pulmonary edema and interstitial pulmonary edema. Large right and small left pleural effusions. 3. Mild cardiomegaly and pulmonary hypertension.
--- NOTE | 2018-08-10 14:22 | CT ---
Date of service: 08/10/2018 PROCEDURE: CT Abdomen and Pelvis without intravenous contrast HISTORY: Small bowel obstruction COMPARISON: 07/30/2018. TECHNIQUE: CT scan of the abdomen and pelvis was performed without administration of intravenous contrast. Oral contrast was not administered. Coronal and sagittal reformatted images were obtained. Radiation dose: Total exam DLP = 826.61 mGy-cm. This CT exam was performed using one or more of the following dose reduction techniques: Automated exposure control, adjustment of the mA and/or kV according to patient size, and/or use of iterative reconstruction technique. FINDINGS: LOWER THORAX: Large right and small left pleural effusions. Confluent airspace disease in the right lower lobe which may represent pneumonia. LIVER: Normal in size. No gross lesion or ductal dilatation. GALLBLADDER AND BILE DUCTS: Surgically absent. PANCREAS: Normal in size. No gross lesion or ductal dilatation. SPLEEN: Normal in size. ADRENALS: Normal in size. No discrete nodule. KIDNEYS AND URETERS: Both kidneys are normal in size. No hydronephrosis or nephrolithiasis. VASCULATURE: Normal in caliber. No aortic aneurysm. There are aortic atherosclerotic calcifications present. BOWEL: Evaluation of the bowel is limited in the absence of oral contrast. There is moderate dilatation of fluid-filled proximal small bowel loops. There is a left spigelian hernia containing nonobstructed distal descending colon. And the distal small bowel loops are decompressed. The stomach is distended. The colon is unremarkable. APPENDIX: Normal appendix. PERITONEUM: No free fluid. No free air. LYMPH NODES: No enlarged lymph nodes. BLADDER: Indwelling Amaro catheter with expected decompression. REPRODUCTIVE: Enlarged lobular presumable fibroid uterus. BONES: No acute fracture. Within normal limits for the patient's age. OTHER FINDINGS: Small bilateral fat containing inguinal hernias. There is a small sliding hiatal hernia. There is diffuse anasarca. IMPRESSION: Fluid-filled moderately dilated proximal small bowel loops without definite zone of transition could represent acute or developing small bowel obstruction. Left lower abdominal spigelian hernia containing nonobstructed distal descending colon. A preliminary report was provided by [employer].
--- NOTE | 2018-08-10 15:48 | CP.CCUPN ---
CCU Subjective - Physician Review Subjective (Free Text): Awake and conversant, yelling with abdominal discomfort, having multiple BMs, able to sit up with legs dangling off bed, denies any chest discomfort, but noticeably tachypneic up to 30s. SPO2 96% on NC. Refused BiPAP overnight. Requiring Dilaudid to ease abdominal discomfort. CTAP and CT chest exams reviewed. Recurrent fever spike to 101F this AM, SBPs high up to 170s, HR 77. No observed recurrent seizure activity, no documented further hypoglycemic episodes. Other vitals and I/O's reviewed. Urine output approx. 1.5 L per last 24H, and in negative fluid balance. ROS: No other pertinent negs or positives on 10+ system review PMSFH: All other Nursing and physician documentation reviewed to date; no new pertinent info noted relevant to current medical problems. EXAM- HEENT: no icterus, no gaze preference, pupils with normal reactivity noted, no nystagmus NECK: no JVD visible, supple, carotids equal upstroke bilat/no bruit CHEST: decreased BS at the bases, no wheezes audible HEART: irregular, distant, S1S2, no rubs ABD: soft, obese, no distension, no focal tenderness, no tympany, no guarding, no organomegaly, BS hypoactive. EXT: + LE edema, no mottling; no calf tenderness or palpable cords, distal pulses intact and symmetrical, no cyanosis, no mottling. NEURO: R sided hemiplegia, moves 4/5 LUE and LLE SKIN: no rashes, warm and dry LABS: WBC= 17.8 HGB= 8.5 PLTs= 257K Na= 150 K= 3.5 CL= 109 HCO3= 27 BUN/Cr= 51/2.7 BS= 164 IMPRESSION / MAJOR PROBLEMS NOW: 1. s/p Acute Hypoxemic Resp Failure 2 Aspiration PNA 2. Anoxic Encephalopathy 2 unclear Seizure event (hypoglycemic) and prolonged down time (EMS reports 25 minutes, but may have been longer as in not seen till next morning according to sons accounts of events, as he lives with her); or prolonged post-ictal state versus other occult BOTTOM BUFFER injury / infection / subacute CVA. 3. Superimposed Metabolic Encephalopathy from Acute Renal Failure 4. Accelerated HTN 5. DM II PLAN: 1. Though self-extubated on Aug 08, would still monitor resp status, may need assisted breathing support later. Try HFNC as she refuses BiPAP, unless decision made to re-institute MV support. No new Advance Directives noted. 2. Hypernatremic, start D5W. Encourage PO water intake. 3. Hold Lasix for now. 4. CT Chest shows prominent bibasilar pneumonic changes / infiltrate. On Cefepime / Flagyl / Vanco. 5. Physical Therapy
--- NOTE | 2018-08-10 18:14 | CP.PCM.PN ---
Subjective - Date & Time of Evaluation Date of Evaluation: 08/10/18 Time of Evaluation: 11:00 - Subjective Subjective: patient seen and examined at bedside. no family at bedside Interim events noted sleepy at this time due to pain meds though reports of being more awake/alert available diagnostic data reviewed Review of Systems unable to obtain due to status Objective Vital Signs Stable - Constitutional Appears: Chronically Ill Head Exam: NORMAL INSPECTION Respiratory Exam: Decreased breath sounds Cardiovascular Exam: +S1, +S2 GI & Abdominal Exam: Soft Neurological Exam: Alert, Awake Skin Exam: Normal Color, Warm Assessment and Plan monitor vitals monitor labs Cont meds Cont tx ID, Cardio, Neuro, ICU, Renal, Pulm following consultants appreciated input lasix consider thoracentesis if effusion doesnt resolve CT of chest, abd, pelvis pending rest of plan as ordered Objective - Vital Signs/Intake and Output Vital Signs (last 24 hours): Temp Pulse Resp BP Pulse Ox 100.7 F H 72 23 172/81 H 95 08/10/18 16:00 08/10/18 18:00 08/10/18 18:00 08/10/18 18:00 08/10/18 18:00 Intake and Output: 08/10/18 08/10/18 06:59 18:59 Intake Total 339 1052 Output Total 600 1400 Balance -261 -348 - Medications Medications: Current Medications Acetaminophen (Tylenol 650mg/20.3ml Solution Ud) 650 mg PO Q6 PRN PRN Reason: Fever>100.4 F Last Admin: 08/10/18 07:39 Dose: 650 mg Acetaminophen (Tylenol 325mg Tab) 650 mg PO Q6 PRN PRN Reason: Pain, moderate (4-7) Last Admin: 08/09/18 11:26 Dose: 650 mg Albuterol/Ipratropium (Duoneb 3 Mg/0.5 Mg (3 Ml) Ud) 3 ml INH RQ6 [facility] Last Admin: 08/10/18 13:08 Dose: 3 ml Dimethicone (Proshield Plus Skin Protectant) 1 applic TOP Q8 [facility] Last Admin: 08/10/18 16:53 Dose: 1 applic Ferrous Sulfate (Feosol) 325 mg PO TID [facility] Last Admin: 08/10/18 16:54 Dose: 325 mg Furosemide (Lasix) 40 mg IVP DAILY [facility] Last Admin: 08/10/18 10:10 Dose: 40 mg Hydromorphone HCl (Dilaudid) 1 mg IVP Q4 PRN PRN Reason: Pain, moderate (4-7) Last Admin: 08/10/18 15:15 Dose: 1 mg Vancomycin HCl 1 gm/ Sodium (Chloride) 250 mls @ 250 mls/hr IVPB MWF [facility]; Protocol Last Admin: 08/09/18 08:29 Dose: 250 mls/hr Cefepime HCl 1 gm/ Sodium (Chloride) 100 mls @ 100 mls/hr IVPB Q12 [facility]; Protocol Last Admin: 08/10/18 08:21 Dose: 100 mls/hr Metronidazole (Flagyl 500mg/100ml Ns) 100 mls @ 100 mls/hr IVPB Q8 [facility]; Protocol Last Admin: 08/10/18 16:54 Dose: 100 mls/hr Insulin Human Regular (Humulin R) 0 units SC ACCU-CHECK [facility]; Protocol Last Admin: 08/10/18 16:56 Dose: 1 u Insulin Lispro Protam/Lispro Human (Humalog Mix 75/25) 5 units SC BID [facility]; Protocol Last Admin: 08/10/18 16:54 Dose: 5 units Ketorolac Tromethamine (Toradol) 30 mg IVP Q6 PRN PRN Reason: Pain, moderate (4-7) Last Admin: 08/09/18 22:44 Dose: 30 mg Labetalol HCl (Trandate) 20 mg IVP Q4 PRN PRN Reason: Systolic Blood Pressure Last Admin: 08/10/18 02:16 Dose: 20 mg Levetiracetam (Keppra) 500 mg PO BID [facility] Last Admin: 08/10/18 16:54 Dose: 500 mg Metoprolol Tartrate (Lopressor) 50 mg PO Q12 [facility] Last Admin: 08/10/18 08:24 Dose: 50 mg Ondansetron HCl (Zofran Inj) 4 mg IVP Q6 PRN PRN Reason: Nausea/Vomiting Last Admin: 08/08/18 01:04 Dose: 4 mg Polyethylene Glycol (Miralax) 17 gm PO HS [facility] Last Admin: 08/09/18 21:04 Dose: 17 gm Vitamin B Complex/Vit C/Folic Acid (Nephro-Everardo) 1 tab PO DAILY [facility] Last Admin: 08/10/18 08:24 Dose: 1 tab - Labs Labs: 08/10/18 02:55 08/10/18 02:55 PT 16.2 Seconds (9.8-13.1) H 08/04/18 10:28 INR 1.4 08/04/18 10:28 APTT 35.6 Seconds (25.6-37.1) 08/04/18 10:28 Assessment and Plan (1) Respiratory failure Status: Acute (2) Sepsis Status: Acute (3) JORGE A (acute kidney injury) Status: Acute (4) Abdominal pain Status: Acute
[2018-08-10] MEDS: POLYETHYLENE GLYCOL 3350 17 GM/Dose PACKET PO SCH (21:03)
[2018-08-11] MEDS: metroNIDAZOLE 500mg/100ml NS 100 ML IVPB SCH ×3 (00:51→17:08)
[2018-08-11] MEDS: Proshield Plus GEL TOP SCH ×3 (00:53→17:00)
[2018-08-11] MEDS: Albuterol-Ipratrop 3 mg / 0.5 (3 ml) UD INH SCH ×4 (01:06→19:03)
--- NOTE | 2018-08-11 02:15 | CP.PCM.PN ---
Subjective - Date & Time of Evaluation Date of Evaluation: 08/09/18 Time of Evaluation: 07:30 - Subjective Subjective: Pt seen and assessed at bedside. Pt was recently extubated and is currently receiving a nebulizer treatment. Recent abdominal X-ray revealed ileus; the pt has been receiving Miralax and frequent bowel movements were noted. Review of Systems - Review of Systems All systems: reviewed and no additional remarkable complaints except Review of Systems: occasional dyspnea, fatigue. Objective - Vital Signs/Intake and Output Vital Signs (last 24 hours): Temp Pulse Resp BP Pulse Ox 101.5 F H 69 25 H 155/76 H 98 08/10/18 22:00 08/10/18 22:00 08/10/18 22:00 08/10/18 22:00 08/10/18 22:00 Intake and Output: 08/10/18 08/11/18 18:59 06:59 Intake Total 1052 384 Output Total 1400 300 Balance -348 84 - Medications Medications: Current Medications Acetaminophen (Tylenol 650mg/20.3ml Solution Ud) 650 mg PO Q6 PRN PRN Reason: Fever>100.4 F Last Admin: 08/10/18 20:45 Dose: 650 mg Acetaminophen (Tylenol 325mg Tab) 650 mg PO Q6 PRN PRN Reason: Pain, moderate (4-7) Last Admin: 08/09/18 11:26 Dose: 650 mg Albuterol/Ipratropium (Duoneb 3 Mg/0.5 Mg (3 Ml) Ud) 3 ml INH RQ6 [facility] Last Admin: 08/10/18 19:18 Dose: 3 ml Dimethicone (Proshield Plus Skin Protectant) 1 applic TOP Q8 [facility] Last Admin: 08/11/18 00:53 Dose: 1 applic Ferrous Sulfate (Feosol) 325 mg PO TID [facility] Last Admin: 08/10/18 16:54 Dose: 325 mg Furosemide (Lasix) 40 mg IVP DAILY [facility] Last Admin: 08/10/18 10:10 Dose: 40 mg Hydromorphone HCl (Dilaudid) 1 mg IVP Q4 PRN PRN Reason: Pain, moderate (4-7) Last Admin: 08/10/18 15:15 Dose: 1 mg Vancomycin HCl 1 gm/ Sodium (Chloride) 250 mls @ 250 mls/hr IVPB MWF [facility]; Protocol Last Admin: 08/09/18 08:29 Dose: 250 mls/hr Cefepime HCl 1 gm/ Sodium (Chloride) 100 mls @ 100 mls/hr IVPB Q12 [facility]; Protocol Last Admin: 08/10/18 20:20 Dose: 100 mls/hr Metronidazole (Flagyl 500mg/100ml Ns) 100 mls @ 100 mls/hr IVPB Q8 [facility]; Protocol Last Admin: 08/11/18 00:51 Dose: 100 mls/hr Insulin Human Regular (Humulin R) 0 units SC ACCU-CHECK [facility]; Protocol Last Admin: 08/10/18 22:22 Dose: 2 u Insulin Lispro Protam/Lispro Human (Humalog Mix 75/25) 5 units SC BID [facility]; Protocol Last Admin: 08/10/18 16:54 Dose: 5 units Ketorolac Tromethamine (Toradol) 30 mg IVP Q6 PRN PRN Reason: Pain, moderate (4-7) Last Admin: 08/09/18 22:44 Dose: 30 mg Labetalol HCl (Trandate) 20 mg IVP Q4 PRN PRN Reason: Systolic Blood Pressure Last Admin: 08/10/18 02:16 Dose: 20 mg Levetiracetam (Keppra) 500 mg PO BID [facility] Last Admin: 08/10/18 16:54 Dose: 500 mg Metoprolol Tartrate (Lopressor) 50 mg PO Q12 [facility] Last Admin: 08/10/18 20:24 Dose: 50 mg Ondansetron HCl (Zofran Inj) 4 mg IVP Q6 PRN PRN Reason: Nausea/Vomiting Last Admin: 08/08/18 01:04 Dose: 4 mg Polyethylene Glycol (Miralax) 17 gm PO HS [facility] Last Admin: 08/10/18 21:03 Dose: 17 gm Pregabalin (Lyrica) 100 mg PO Q8 [facility] Last Admin: 08/11/18 00:51 Dose: 100 mg Vitamin B Complex/Vit C/Folic Acid (Nephro-Everardo) 1 tab PO DAILY [facility] Last Admin: 08/10/18 08:24 Dose: 1 tab - Labs Labs: 08/10/18 02:55 08/10/18 02:55 PT 16.2 Seconds (9.8-13.1) H 08/04/18 10:28 INR 1.4 08/04/18 10:28 APTT 35.6 Seconds (25.6-37.1) 08/04/18 10:28 - Head Exam Head Exam: ATRAUMATIC, NORMAL INSPECTION, NORMOCEPHALIC - Eye Exam Eye Exam: EOMI, Normal appearance, PERRL - ENT Exam ENT Exam: Mucous Membranes Dry - Neck Exam Neck Exam: Normal Inspection - Respiratory Exam Respiratory Exam: Decreased Breath Sounds - Cardiovascular Exam Cardiovascular Exam: Irregular Rhythm Additional comments: A-fib/flutter on gambling monitor. - GI/Abdominal Exam GI & Abdominal Exam: Distended, Normal Bowel Sounds - Extremities Exam Extremities Exam: Normal Inspection, Tenderness - Back Exam Back Exam: NORMAL INSPECTION - Neurological Exam Neurological Exam: Alert, Awake - Psychiatric Exam Psychiatric exam: Normal Affect Additional comments: occasionally shouts out loud spontaneously - Skin Skin Exam: Dry, Normal Color, Warm Assessment and Plan (1) Encephalopathy Assessment & Plan: 1.) Encephalopathy -Pt extubated and receiving nebulizer treatments. -Ensure adequate oxygenation. -Mental status seems to have returned closer to baseline. -Pt able to follow commands and give brief answers; mild slurred speech noted. -No seizure activity observed. -consults input appreciated. -continue current tx. Status: Acute
[2018-08-11 05:57] LABS: HEMOGLOBIN 8.4 g/dL (12.0-16.0); MEAN CELL VOLUME 80.3 fl (81.0-99.0); MEAN CORPUSCULAR HEMOGLOBIN 25.3 pg (27.0-31.0); MEAN CORPUSCULAR HGB CONC 31.5 g/dL (33.0-37.0); RBC 3.31 Mil/uL (3.80-5.20); RED CELL DISTRIBUTION WIDTH 19.9 % (11.5-14.5); WHITE BLOOD COUNT 16.9 K/uL (4.8-10.8)
[2018-08-11 06:23] LABS: ALB/GLOB RATIO 0.8 (1.0-2.1); ALBUMIN 3.2 g/dL (3.5-5.0); CALCIUM 8.8 mg/dL (8.4-10.2)
[2018-08-11] MEDS: Insulin Regular 100 units/ml SC SCH ×4 (06:27→22:52)
[2018-08-11] MEDS ORDERED: Potassium Chloride 10 mEq ER Tab PO ONE (07:07)
--- NOTE | 2018-08-11 07:52 | RAD ---
Date of service: 08/11/2018 HISTORY: PL;EURAL EFFUSION COMPARISON: Portable chest 08/08/2018 3:54 a.m.. FINDINGS: LUNGS: Right central venous line unchanged in position with apparent right central venous dialysis catheter now removed. Diffuse ground-glass opacity is seen bilaterally, somewhat more so on the right than left reflecting worsening bilateral infiltrates with mild but increased right pleural effusion. No definite left pleural effusion. No pneumothorax bilaterally. Cardiomediastinal silhouette is stable including prosthetic cardiac valve. PLEURA: Pulmonary vascular pattern is somewhat obscured by infiltrates. CARDIOVASCULAR: Calcific atherosclerotic changes are seen related to the thoracic aorta. As above. OSSEOUS STRUCTURES: No significant abnormalities. VISUALIZED UPPER ABDOMEN: Right upper quadrant surgical clips noted. OTHER FINDINGS: None. IMPRESSION: Worsening mixed alveolar and interstitial infiltrates, right greater than left. Mild but increased right pleural effusion.
[2018-08-11] MEDS ORDERED: Magnesium Sulfate 1 gm in D5W 1 GM/100 ML BAG IVPB ONE (08:00)
[2018-08-11] MEDS: Multivitamin Vitamin B Complex (Nephro-Vite) Tab PO SCH ×2 (08:35→11:22)
[2018-08-11] MEDS: Cefepime 1 GM in Sodium Chloride 0.9% 100 ML IVPB SCH (08:36)
[2018-08-11] MEDS: Insulin Lispro Mix 75/25 100 units/ml (HumaLog) 10ml SC SCH ×2 (08:37→19:57)
--- NOTE | 2018-08-11 09:02 | CP.CCUPN ---
CCU Subjective - Physician Review Subjective (Free Text): Overnight events reviewed. Overall appears sleepy but awake now and alert to verbal questions and commands. Daughter requested resumption of Lyrica and lidocaine patch, but Home meds reviewed and only patch medication noted was Duragesic. Given Lasix yesterday with approx. 2.4L urine output overnight. Still has recurrent fever spikes to 102F. SBPs high up to 130-160 range, HR 60s. No observed recurrent seizure activity, no documented further hypoglycemic e pisodes. Other vitals and I/O's reviewed. ROS: No other pertinent negs or positives on 10+ system review PMSFH: All other Nursing and physician documentation reviewed to date; no new pertinent info noted relevant to current medical problems. EXAM- HEENT: no icterus, no gaze preference, pupils with normal reactivity noted, no nystagmus NECK: no JVD visible, supple, carotids equal upstroke bilat/no bruit CHEST: decreased BS at the bases, no wheezes audible HEART: irregular, distant, S1S2, no rubs ABD: soft, obese, no distension, no focal tenderness, no tympany, no guarding, no organomegaly, BS hypoactive. EXT: + LE edema, no mottling; no calf tenderness or palpable cords, distal pulses intact and symmetrical, no cyanosis, no mottling. NEURO: R sided hemiplegia, moves 4/5 LUE and LLE SKIN: no rashes, warm and dry LABS: WBC= 16.9 HGB= 8.4 PLTs= 293K Na= 152 K= 3.1 CL= 114 HCO3= 29 BUN/Cr= 57/2.3 BS= 162 CXR (my interp): diffuse bilat haziness with infiltrates, worse tna when she was intubated onMV. IMPRESSION / MAJOR PROBLEMS NOW: 1. s/p Acute Hypoxemic Resp Failure 2 Aspiration PNA 2. Anoxic Encephalopathy 2 unclear Seizure event (hypoglycemic) and prolonged down time (EMS reports 25 minutes, but may have been longer as in not seen till next morning according to sons accounts of events, as he lives with her); or prolonged post-ictal state versus other occult [employer] injury / infection / subacute CVA. 3. Superimposed Metabolic Encephalopathy from Acute Renal Failure 4. Accelerated HTN 5. DM II PLAN: 1. Though self-extubated on Mar 5, remains under close observation for any need to return to MV support given recent tachypnea. Try HFNC as she refuses BiPAP. No new Advance Directives noted. Check ABG. 2. Hypernatremic, with Lasix. K supplemented. 3. Lasix increased. 4. On Cefepime / Flagyl / Vanco. 5. Lyrica resumed at half dose given renal insufficiency. Hold on Duragesic patch for now.
--- NOTE | 2018-08-11 09:50 | CP.PCM.PN ---
Subjective - Date & Time of Evaluation Date of Evaluation: 08/11/18 Time of Evaluation: 09:52 - Subjective Subjective: Patient appears to be awake Trying to verbalize Vital signs noted to be stable Objective - Vital Signs/Intake and Output Vital Signs (last 24 hours): Temp Pulse Resp BP Pulse Ox 99.7 F H 70 24 164/73 H 100 08/11/18 08:00 08/11/18 08:36 08/11/18 08:00 08/11/18 08:36 08/11/18 08:00 Intake and Output: 08/11/18 08/11/18 06:59 18:59 Intake Total 1080 Output Total 1050 Balance 30 - Medications Medications: Current Medications Acetaminophen (Tylenol 650mg/20.3ml Solution Ud) 650 mg PO Q6 PRN PRN Reason: Fever>100.4 F Last Admin: 08/10/18 20:45 Dose: 650 mg Acetaminophen (Tylenol 325mg Tab) 650 mg PO Q6 PRN PRN Reason: Pain, moderate (4-7) Last Admin: 08/09/18 11:26 Dose: 650 mg Albuterol/Ipratropium (Duoneb 3 Mg/0.5 Mg (3 Ml) Ud) 3 ml INH RQ6 [facility] Last Admin: 08/11/18 07:09 Dose: 3 ml Dimethicone (Proshield Plus Skin Protectant) 1 applic TOP Q8 [facility] Last Admin: 08/11/18 08:38 Dose: 1 applic Ferrous Sulfate (Feosol) 325 mg PO TID [facility] Last Admin: 08/11/18 08:36 Dose: 325 mg Furosemide (Lasix) 60 mg IVP BID [facility] Hydromorphone HCl (Dilaudid) 1 mg IVP Q4 PRN PRN Reason: Pain, moderate (4-7) Last Admin: 08/10/18 15:15 Dose: 1 mg Vancomycin HCl 1 gm/ Sodium (Chloride) 250 mls @ 250 mls/hr IVPB MWF [facility]; Protocol Last Admin: 08/11/18 08:39 Dose: 250 mls/hr Cefepime HCl 1 gm/ Sodium (Chloride) 100 mls @ 100 mls/hr IVPB Q12 [facility]; P rotocol Last Admin: 08/11/18 08:36 Dose: 100 mls/hr Metronidazole (Flagyl 500mg/100ml Ns) 100 mls @ 100 mls/hr IVPB Q8 [facility]; Protocol Last Admin: 08/11/18 08:37 Dose: 100 mls/hr Insulin Human Regular (Humulin R) 0 units SC ACCU-CHECK [facility]; Protocol Last Admin: 08/11/18 06:27 Dose: 1 u Insulin Lispro Protam/Lispro Human (Humalog Mix 75/25) 5 units SC BID [facility]; Protocol Last Admin: 08/11/18 08:37 Dose: 5 units Ketorolac Tromethamine (Toradol) 30 mg IVP Q6 PRN PRN Reason: Pain, moderate (4-7) Last Admin: 08/09/18 22:44 Dose: 30 mg Labetalol HCl (Trandate) 20 mg IVP Q4 PRN PRN Reason: Systolic Blood Pressure Last Admin: 08/10/18 02:16 Dose: 20 mg Levetiracetam (Keppra) 500 mg PO BID [facility] Last Admin: 08/11/18 08:36 Dose: 500 mg Metoprolol Tartrate (Lopressor) 50 mg PO Q12 [facility] Last Admin: 08/11/18 08:36 Dose: 50 mg Ondansetron HCl (Zofran Inj) 4 mg IVP Q6 PRN PRN Reason: Nausea/Vomiting Last Admin: 08/08/18 01:04 Dose: 4 mg Pregabalin (Lyrica) 100 mg PO Q8 [facility] Last Admin: 08/11/18 00:51 Dose: 100 mg Vitamin B Complex/Vit C/Folic Acid (Nephro-Everardo) 1 tab PO DAILY [facility] Last Admin: 08/11/18 08:35 Dose: 1 tab - Labs Labs: 08/11/18 05:00 08/11/18 05:00 PT 16.2 Seconds (9.8-13.1) H 08/04/18 10:28 INR 1.4 08/04/18 10:28 APTT 35.6 Seconds (25.6-37.1) 08/04/18 10:28 - Constitutional Appears: No Acute Distress - Eye Exam Eye Exam: Conjunctival injection - ENT Exam ENT Exam: Mucous Membranes Moist - Respiratory Exam Respiratory Exam: Rhonchi, NORMAL BREATHING PATTERN. absent: Chest Wall Tenderness - Cardiovascular Exam Cardiovascular Exam: absent: Gallop, JVD, Rubs - GI/Abdominal Exam GI & Abdominal Exam: Soft, Normal Bowel Sounds - Extremities Exam Extremities Exam: absent: Calf Tenderness - Back Exam Back Exam: absent: CVA tenderness (L), CVA tenderness (R) - Neurological Exam Neurological Exam: Awake - Skin Skin Exam: absent: Cyanosis Assessment and Plan (1) JORGE A (acute kidney injury) Assessment & Plan: Respiratory failure/ patient extubated Acute renal failure/acute kidney injury related to multifactorial including sepsis. Diabetes mellitus and history of hypertension history of CVA. encephalopathy patient improving mental status much better and more awake hyperurecemia corrected , DC allopurinol Hyperphosphatemia corrected DC calcium acetate Shock liver improving liver function test Nephrotic syndrome proteinuria with 7 gram proteinuria based on protein to creatinine ratio Hypokalemia. Given potassium chloride Hypomagnesemia Hypernatremia sodium up 152 Recommendation Repeat serum magnesium stat now if magnesium is still low need more intravenous magnesium. Hypokalemia persisted need more potassium chloride Kidney function stable Antibiotics as per ICU team considering GFR Continue D5W IV fluid Mix all intravenous medication was D5W Status: Acute (2) Elevated liver enzymes Status: Acute (3) Elevated troponin level Status: Acute (4) Leukocytosis Status: Acute (5) Sepsis Status: Acute
[2018-08-11 10:02] LABS: ABG ALLEN TEST YES; ARTERIAL BLOOD GAS HCO3 29.8 mmol/L (21-28); ARTERIAL BLOOD GAS O2 SAT 100.1 % (95-98); ARTERIAL BLOOD GAS PCO2 35 mm/Hg (35-45); ARTERIAL BLOOD GAS PH 7.53 (7.35-7.45); ARTERIAL BLOOD GAS PO2 99 mm/Hg (80-100); ARTERIAL BLOOD GAS TCO2 30.3 mmol/L (22-28)
[2018-08-11] MEDS: Potassium CL 10mEq/100ml 100 ML IVPB SCH ×3 (11:51→15:33)
[2018-08-11] MEDS: levETIRAcetam 500 MG in Sodium Chloride 0.9% 100 ML IVPB SCH ×2 (13:06→20:01)
--- NOTE | 2018-08-11 13:22 | CP.PCM.PN ---
Subjective - Date & Time of Evaluation Date of Evaluation: 08/11/18 Time of Evaluation: 08:00 - Subjective Subjective: fever persists source unclear consider CT abd/pelvis Objective - Vital Signs/Intake and Output Vital Signs (last 24 hours): Temp Pulse Resp BP Pulse Ox 100.5 F H 63 24 133/76 98 08/11/18 12:00 08/11/18 12:00 08/11/18 12:00 08/11/18 12:00 08/11/18 12:00 Intake and Output: 08/11/18 08/11/18 06:59 18:59 Intake Total 1080 Output Total 1050 Balance 30 - Medications Medications: Current Medications Acetaminophen (Tylenol 650mg/20.3ml Solution Ud) 650 mg PO Q6 PRN PRN Reason: Fever>100.4 F Last Admin: 08/10/18 20:45 Dose: 650 mg Acetaminophen (Tylenol 325mg Tab) 650 mg PO Q6 PRN PRN Reason: Pain, moderate (4-7) Last Admin: 08/09/18 11:26 Dose: 650 mg Albuterol/Ipratropium (Duoneb 3 Mg/0.5 Mg (3 Ml) Ud) 3 ml INH RQ6 [facility] Last Admin: 08/11/18 13:01 Dose: 3 ml Dimethicone (Proshield Plus Skin Protectant) 1 applic TOP Q8 [facility] Last Admin: 08/11/18 08:38 Dose: 1 applic Ferrous Sulfate (Feosol) 325 mg PO TID [facility] Last Admin: 08/11/18 11:21 Dose: Not Given Furosemide (Lasix) 60 mg IVP BID [facility] Last Admin: 08/11/18 10:03 Dose: 60 mg Hydromorphone HCl (Dilaudid) 1 mg IVP Q4 PRN PRN Reason: Pain, moderate (4-7) Last Admin: 08/10/18 15:15 Dose: 1 mg Vancomycin HCl 1 gm/ Sodium (Chloride) 250 mls @ 250 mls/hr IVPB MWF [facility]; Protocol Last Admin: 08/11/18 08:39 Dose: 250 mls/hr Cefepime HCl 1 gm/ Sodium (Chloride) 100 mls @ 100 mls/hr IVPB Q12 [facility]; Protocol Last Admin: 08/11/18 08:36 Dose: 100 mls/hr Metronidazole (Flagyl 500mg/100ml Ns) 100 mls @ 100 mls/hr IVPB Q8 [facility]; Protocol Last Admin: 08/11/18 08:37 Dose: 100 mls/hr Potassium Chloride (Potassium Chloride 10 Meq/100 Ml) 100 mls @ 100 mls/hr IVPB Q1 [facility] Stop: 08/11/18 13:59 Last Admin: 08/11/18 13:06 Dose: 100 mls/hr Levetiracetam 500 mg/ Sodium (Chloride) 105 mls @ 210 mls/hr IVPB Q12 [facility] Last Admin: 08/11/18 13:06 Dose: 210 mls/hr Insulin Human Regular (Humulin R) 0 units SC ACCU-CHECK [facility]; Protocol Last Admin: 08/11/18 11:54 Dose: Not Given Insulin Lispro Protam/Lispro Human (Humalog Mix 75/25) 5 units SC BID [facility]; Protocol Last Admin: 08/11/18 08:37 Dose: 5 units Ketorolac Tromethamine (Toradol) 30 mg IVP Q6 PRN PRN Reason: Pain, moderate (4-7) Last Admin: 08/09/18 22:44 Dose: 30 mg Labetalol HCl (Trandate) 20 mg IVP Q4 PRN PRN Reason: Systolic Blood Pressure Last Admin: 08/10/18 02:16 Dose: 20 mg Levetiracetam (Keppra) 500 mg PO BID [facility] Last Admin: 08/11/18 11:55 Dose: Not Given Metoprolol Tartrate (Lopressor) 50 mg PO Q12 [facility] Last Admin: 08/11/18 11:56 Dose: Not Given Metoprolol Tartrate (Lopressor) 5 mg IVP Q8 [facility] Ondansetron HCl (Zofran Inj) 4 mg IVP Q6 PRN PRN Reason: Nausea/Vomiting Last Admin: 08/08/18 01:04 Dose: 4 mg Pregabalin (Lyrica) 100 mg PO Q8 [facility] Last Admin: 08/11/18 10:12 Dose: Not Given Vitamin B Complex/Vit C/Folic Acid (Nephro-Everardo) 1 tab PO DAILY [facility] Last Admin: 08/11/18 11:22 Dose: Not Given - Labs Labs: 08/11/18 05:00 08/11/18 05:00 PT 16.2 Seconds (9.8-13.1) H 08/04/18 10:28 INR 1.4 08/04/18 10:28 APTT 35.6 Seconds (25.6-37.1) 08/04/18 10:28 - Constitutional Appears: No Acute Distress, Confused, Chronically Ill - Head Exam Head Exam: NORMOCEPHALIC - Eye Exam Eye Exam: absent: Scleral icterus - Neck Exam Neck Exam: absent: Lymphadenopathy - Respiratory Exam Respiratory Exam: Decreased Breath Sounds, Prolonged Expiratory Phase, Rhonchi - Cardiovascular Exam Cardiovascular Exam: REGULAR RHYTHM, +S1, +S2 - GI/Abdominal Exam GI & Abdominal Exam: Distended, Soft. absent: Tenderness - Rectal Exam Rectal Exam: Deferred - Exam Exam: NORMAL INSPECTION - Extremities Exam Extremities Exam: absent: Pedal Edema - Back Exam Back Exam: absent: CVA tenderness (L), CVA tenderness (R) - Neurological Exam Neurological Exam: Alert, Awake Neuro motor strength exam: Left Upper Extremity: 3, Right Upper Extremity: 2/1, Left Lower Extremity: 3, Right Lower Extremity: 2/1 - Skin Skin Exam: Dry Assessment and Plan (1) Sepsis Status: Acute (2) Change in mental state Status: Acute (3) History of CVA with residual deficit Status: Acute (4) Diabetes 1.5, managed as type 2 Status: Chronic (5) History of CVA (cerebrovascular accident) Status: Chronic (6) NSTEMI (non-ST elevated myocardial infarction) Status: Acute (7) JORGE A (acute kidney injury) Status: Acute (8) Pansinusitis Status: Acute (9) Pneumonia Status: Acute - Assessment and Plan (Free Text) Assessment: consider CT abd/pelvis add merrem for pneumonia
[2018-08-11] MEDS ORDERED: Sodium Chloride 3% for Inhalation 4 ML VIAL.NEB IH PRN (13:23)
[2018-08-11] MEDS ORDERED: Micafungin 100 MG in Sodium Chloride 0.9% 100 ML IVPB SCH (14:00)
[2018-08-11] MEDS: Acetaminophen 650mg/20.3ml solution UD PO PRN (15:36)
[2018-08-11] MEDS: Meropenem 500 MG in Sodium Chloride 0.9% 100 ML IVPB SCH (16:59)
[2018-08-11] MEDS: Metoprolol 1 mg/ml Inj IVP SCH (17:14)
[2018-08-12] MEDS: Albuterol-Ipratrop 3 mg / 0.5 (3 ml) UD INH SCH ×4 (01:11→19:41)
[2018-08-12] MEDS: Metoprolol 1 mg/ml Inj IVP SCH ×3 (01:11→17:06)
[2018-08-12] MEDS: Meropenem 500 MG in Sodium Chloride 0.9% 100 ML IVPB SCH ×3 (01:21→17:07)
[2018-08-12] MEDS: metroNIDAZOLE 500mg/100ml NS 100 ML IVPB SCH ×3 (01:21→17:01)
[2018-08-12] MEDS: Proshield Plus GEL TOP SCH ×3 (01:27→17:14)
[2018-08-12 05:47] LABS: HEMOGLOBIN 8.5 g/dL (12.0-16.0); MEAN CELL VOLUME 79.8 fl (81.0-99.0); MEAN CORPUSCULAR HEMOGLOBIN 25.7 pg (27.0-31.0); MEAN CORPUSCULAR HGB CONC 32.1 g/dL (33.0-37.0); RBC 3.29 Mil/uL (3.80-5.20); RED CELL DISTRIBUTION WIDTH 20.2 % (11.5-14.5); WHITE BLOOD COUNT 12.7 K/uL (4.8-10.8)
[2018-08-12] MEDS: Insulin Regular 100 units/ml SC SCH ×4 (06:03→23:38)
[2018-08-12 06:05] LABS: ALB/GLOB RATIO 0.7 (1.0-2.1); CALCIUM 8.6 mg/dL (8.4-10.2)
[2018-08-12] MEDS ORDERED: Magnesium Sulfate 4 gm/100 ml 4 GM/100 ML BAG IVPB ONE (06:14)
[2018-08-12] MEDS ORDERED: Potassium Chloride 20 mEq/15 ml LIQ UD PO ONE (06:16)
[2018-08-12] MEDS ORDERED: Potassium Chloride 20 mEq 100 ML IVPB ONE (06:22)
[2018-08-12] MEDS: Insulin Lispro Mix 75/25 100 units/ml (HumaLog) 10ml SC SCH ×2 (08:25→17:04)
[2018-08-12] MEDS: Potassium Chloride 20 mEq/15 ml LIQ UD PO SCH ×2 (08:37→09:43)
[2018-08-12] MEDS ORDERED: Chlorhexidine Gluconate 1 APPL/PKT TP ONE (09:30)
[2018-08-12] MEDS ORDERED: Potassium Chloride 20 mEq 100 ML IVPB SCH (10:00)
[2018-08-12] MEDS: Micafungin 100 MG in Dextrose 5% In Water 100 ML IVPB SCH (10:08)
--- NOTE | 2018-08-12 11:34 | CP.PCM.PN ---
Subjective - Date & Time of Evaluation Date of Evaluation: 08/12/18 Time of Evaluation: 11:35 - Subjective Subjective: RESPONDS TO TOUCH AND VERBAL COMMANDS VSS OFF VENT--ON HIGH FLOW O2 Objective - Vital Signs/Intake and Output Vital Signs (last 24 hours): Temp Pulse Resp BP Pulse Ox 98.9 F 60 27 H 151/75 H 100 08/12/18 08:00 08/12/18 10:00 08/12/18 10:00 08/12/18 10:00 08/12/18 10:00 Intake and Output: 08/12/18 08/12/18 06:59 18:59 Intake Total 1180 Output Total 2300 Balance -1120 - Medications Medications: Current Medications Acetaminophen (Tylenol 325mg Tab) 650 mg PO Q6 PRN PRN Reason: Pain, moderate (4-7) Last Admin: 08/09/18 11:26 Dose: 650 mg Acetaminophen (Tylenol 325mg Tab) 650 mg PO Q6 PRN PRN Reason: Temperature Last Admin: 08/11/18 15:55 Dose: 650 mg Albuterol/Ipratropium (Duoneb 3 Mg/0.5 Mg (3 Ml) Ud) 3 ml INH RQ6 [facility] Last Admin: 08/12/18 07:11 Dose: 3 ml Dimethicone (Proshield Plus Skin Protectant) 1 applic TOP Q8 [facility] Last Admin: 08/12/18 09:40 Dose: 1 applic Ferrous Sulfate (Feosol) 325 mg PO TID [facility] Last Admin: 08/11/18 11:21 Dose: Not Given Furosemide (Lasix) 40 mg IVP Q12 [facility] Hydromorphone HCl (Dilaudid) 1 mg IVP Q4 PRN PRN Reason: Pain, moderate (4-7) Last Admin: 08/11/18 15:54 Dose: 1 mg Vancomycin HCl 1 gm/ Sodium (Chloride) 250 mls @ 250 mls/hr IVPB MWF [facility]; Protocol Last Admin: 08/11/18 08:39 Dose: 250 mls/hr Metronidazole (Flagyl 500mg/100ml Ns) 100 mls @ 100 mls/hr IVPB Q8 [facility]; Protocol Last Admin: 08/12/18 08:24 Dose: 100 mls/hr Meropenem 500 mg/ Sodium (Chloride) 100 mls @ 100 mls/hr IVPB Q8 [facility]; Protocol Last Admin: 08/12/18 09:44 Dose: 100 mls/hr Levetiracetam 500 mg/ Dextrose 105 mls @ 210 mls/hr IVPB Q12 [facility] Last Admin: 08/12/18 10:09 Dose: 210 mls/hr Micafungin Sodium 100 mg/ (Dextrose) 100 mls @ 100 mls/hr IVPB DAILY [facility]; Protocol Last Admin: 08/12/18 10:08 Dose: 100 mls/hr Insulin Human Regular (Humulin R) 0 units SC ACCU-CHECK [facility]; Protocol Last Admin: 08/12/18 06:03 Dose: Not Given Insulin Lispro Protam/Lispro Human (Humalog Mix 75/25) 5 units SC BID [facility]; Protocol Last Admin: 08/12/18 08:25 Dose: 5 units Ketorolac Tromethamine (Toradol) 30 mg IVP Q6 PRN PRN Reason: Pain, moderate (4-7) Last Admin: 08/09/18 22:44 Dose: 30 mg Labetalol HCl (Trandate) 20 mg IVP Q4 PRN PRN Reason: Systolic Blood Pressure Last Admin: 08/10/18 02:16 Dose: 20 mg Levetiracetam (Keppra) 500 mg PO BID [facility] Last Admin: 08/11/18 11:55 Dose: Not Given Metoprolol Tartrate (Lopressor) 50 mg PO Q12 [facility] Last Admin: 08/11/18 11:56 Dose: Not Given Metoprolol Tartrate (Lopressor) 5 mg IVP Q8 [facility] Last Admin: 08/12/18 08:35 Dose: 5 mg Ondansetron HCl (Zofran Inj) 4 mg IVP Q6 PRN PRN Reason: Nausea/Vomiting Last Admin: 08/08/18 01:04 Dose: 4 mg Pregabalin (Lyrica) 100 mg PO Q8 [facility] Last Admin: 08/11/18 10:12 Dose: Not Given Vitamin B Complex/Vit C/Folic Acid (Nephro-Everardo) 1 tab PO DAILY [facility] Last Admin: 08/11/18 11:22 Dose: Not Given - Labs Labs: 08/12/18 04:45 08/12/18 04:45 PT 16.2 Seconds (9.8-13.1) H 08/04/18 10:28 INR 1.4 08/04/18 10:28 APTT 35.6 Seconds (25.6-37.1) 08/04/18 10:28 - Constitutional Appears: Chronically Ill - Head Exam Head Exam: ATRAUMATIC, NORMAL INSPECTION, NORMOCEPHALIC - Eye Exam Eye Exam: EOMI, Normal appearance, PERRL Pupil Exam: NORMAL ACCOMODATION, PERRL - ENT Exam ENT Exam: Mucous Membranes Moist, Normal Exam - Neck Exam Neck Exam: Full ROM, Normal Inspection. absent: Lymphadenopathy - Respiratory Exam Respiratory Exam: Prolonged Expiratory Phase, Rales Additional comments: ON HIGH FLOW O2 - Cardiovascular Exam Cardiovascular Exam: REGULAR RHYTHM, +S1, +S2. absent: Murmur - GI/Abdominal Exam GI & Abdominal Exam: Soft, Normal Bowel Sounds. absent: Tenderness - Rectal Exam Rectal Exam: NORMAL INSPECTION - Extremities Exam Extremities Exam: Full ROM, Normal Capillary Refill, Normal Inspection. absent: Joint Swelling, Pedal Edema - Back Exam Back Exam: NORMAL INSPECTION - Neurological Exam Additional comments: EASILY AROUSABLE - Psychiatric Exam Psychiatric exam: Normal Affect, Normal Mood - Skin Skin Exam: Dry, Intact, Normal Color, Warm Assessment and Plan - Assessment and Plan (Free Text) Assessment: RESPIRATORY FAILURE IMPROVED PLEURAL EFFUSION PERSISTS Plan: CXR IN AM CONTINUE O2 AND ANTIBIOTIC RX
[2018-08-13] MEDS: Albuterol-Ipratrop 3 mg / 0.5 (3 ml) UD INH SCH ×4 (01:00→19:11)
[2018-08-13] MEDS: Meropenem 500 MG in Sodium Chloride 0.9% 100 ML IVPB SCH ×3 (01:42→18:30)
[2018-08-13] MEDS: Metoprolol 1 mg/ml Inj IVP SCH ×3 (01:50→17:37)
[2018-08-13] MEDS: metroNIDAZOLE 500mg/100ml NS 100 ML IVPB SCH ×3 (03:24→16:11)
[2018-08-13] MEDS: Proshield Plus GEL TOP SCH ×3 (03:25→16:15)
[2018-08-13] MEDS: Insulin Regular 100 units/ml SC SCH ×4 (09:02→22:20)
[2018-08-13] MEDS: Insulin Lispro Mix 75/25 100 units/ml (HumaLog) 10ml SC SCH ×2 (09:03→17:34)
--- NOTE | 2018-08-13 11:39 | CP.PCM.PN ---
Subjective - Date & Time of Evaluation Date of Evaluation: 08/13/18 Time of Evaluation: 11:40 - Subjective Subjective: MORE AWAKE AND ALERT RESPONDS APPROPRIATELY TO VERBAL COMMANDS SOB IMPROVED STILL ON HIGH FLOW O2 Objective - Vital Signs/Intake and Output Vital Signs (last 24 hours): Temp Pulse Resp BP Pulse Ox 99.0 F 82 16 128/67 92 L 08/13/18 09:51 08/13/18 08:58 08/13/18 11:04 08/13/18 09:01 08/13/18 08:16 Intake and Output: 08/13/18 08/13/18 06:59 18:59 Intake Total Output Total Balance - Medications Medications: Current Medications Acetaminophen (Tylenol 325mg Tab) 650 mg PO Q6 PRN PRN Reason: Pain, moderate (4-7) Last Admin: 08/09/18 11:26 Dose: 650 mg Acetaminophen (Tylenol 325mg Tab) 650 mg PO Q6 PRN PRN Reason: Temperature Last Admin: 08/13/18 08:51 Dose: 650 mg Albuterol/Ipratropium (Duoneb 3 Mg/0.5 Mg (3 Ml) Ud) 3 ml INH RQ6 [facility] Last Admin: 08/13/18 01:00 Dose: 3 ml Dimethicone (Proshield Plus Skin Protectant) 1 applic TOP Q8 [facility] Last Admin: 08/13/18 08:55 Dose: 1 applic Ferrous Sulfate (Feosol) 325 mg PO TID [facility] Last Admin: 08/11/18 11:21 Dose: Not Given Furosemide (Lasix) 40 mg IVP Q12 [facility] Last Admin: 08/13/18 09:01 Dose: 40 mg Vancomycin HCl 1 gm/ Sodium (Chloride) 250 mls @ 250 mls/hr IVPB MWF [facility]; Protocol Last Admin: 08/11/18 08:39 Dose: 250 mls/hr Metronidazole (Flagyl 500mg/100ml Ns) 100 mls @ 100 mls/hr IVPB Q8 [facility]; Protocol Last Admin: 08/13/18 10:09 Dose: 100 mls/hr Meropenem 500 mg/ Sodium (Chloride) 100 mls @ 100 mls/hr IVPB Q8 [facility]; Protocol Last Admin: 08/13/18 11:19 Dose: 100 mls/hr Levetiracetam 500 mg/ Dextrose 105 mls @ 210 mls/hr IVPB Q12 [facility] Last Admin: 08/12/18 21:25 Dose: 210 mls/hr Micafungin Sodium 100 mg/ (Dextrose) 100 mls @ 100 mls/hr IVPB DAILY [facility]; Protocol Last Admin: 08/12/18 10:08 Dose: 100 mls/hr Insulin Human Regular (Humulin R) 0 units SC ACCU-CHECK [facility]; Protocol Last Admin: 08/13/18 09:02 Dose: 1 u Insulin Lispro Protam/Lispro Human (Humalog Mix 75/25) 5 units SC BID [facility]; Protocol Last Admin: 08/13/18 09:03 Dose: 5 units Ketorolac Tromethamine (Toradol) 30 mg IVP Q6 PRN PRN Reason: Pain, moderate (4-7) Last Admin: 08/09/18 22:44 Dose: 30 mg Labetalol HCl (Trandate) 20 mg IVP Q4 PRN PRN Reason: Systolic Blood Pressure Last Admin: 08/10/18 02:16 Dose: 20 mg Levetiracetam (Keppra) 500 mg PO BID [facility] Last Admin: 08/11/18 11:55 Dose: Not Given Metoprolol Tartrate (Lopressor) 50 mg PO Q12 [facility] Last Admin: 08/11/18 11:56 Dose: Not Given Metoprolol Tartrate (Lopressor) 5 mg IVP Q8 [facility] Last Admin: 08/13/18 08:58 Dose: 5 mg Ondansetron HCl (Zofran Inj) 4 mg IVP Q6 PRN PRN Reason: Nausea/Vomiting Last Admin: 08/08/18 01:04 Dose: 4 mg Pregabalin (Lyrica) 100 mg PO Q8 [facility] Last Admin: 08/11/18 10:12 Dose: Not Given Vitamin B Complex/Vit C/Folic Acid (Nephro-Everardo) 1 tab PO DAILY [facility] Last Admin: 08/11/18 11:22 Dose: Not Given - Labs Labs: 08/12/18 04:45 08/12/18 04:45 PT 16.2 Seconds (9.8-13.1) H 08/04/18 10:28 INR 1.4 08/04/18 10:28 APTT 35.6 Seconds (25.6-37.1) 08/04/18 10:28 - Constitutional Appears: No Acute Distress, Chronically Ill - Head Exam Head Exam: ATRAUMATIC, NORMAL INSPECTION, NORMOCEPHALIC - Eye Exam Eye Exam: EOMI, Normal appearance, PERRL Pupil Exam: NORMAL ACCOMODATION, PERRL - ENT Exam ENT Exam: Mucous Membranes Moist, Normal Exam - Neck Exam Neck Exam: Full ROM, Normal Inspection. absent: Lymphadenopathy - Respiratory Exam Respiratory Exam: Decreased Breath Sounds, Prolonged Expiratory Phase, Rales, NORMAL BREATHING PATTERN - Cardiovascular Exam Cardiovascular Exam: REGULAR RHYTHM, +S1, +S2. absent: Murmur - GI/Abdominal Exam GI & Abdominal Exam: Soft, Normal Bowel Sounds. absent: Tenderness - Rectal Exam Rectal Exam: NORMAL INSPECTION - Extremities Exam Extremities Exam: Full ROM, Normal Capillary Refill, Normal Inspection. absent: Joint Swelling, Pedal Edema - Back Exam Back Exam: NORMAL INSPECTION - Neurological Exam Neurological Exam: Alert, Awake, CN II-XII Intact, Oriented x3 - Psychiatric Exam Psychiatric exam: Normal Affect, Normal Mood - Skin Skin Exam: Dry, Intact, Normal Color, Warm Assessment and Plan - Assessment and Plan (Free Text) Assessment: RESPIRATORY FAILURE IMPROVED CX--IMPROVEMENT OF PULMONARY INFILTERATES AND PLEURAL EFFUSIONS Plan: CONTINUE CURRENT RX WILL PROBABLY BENEFIT FROM SUBACUTE CARE PRIOR TO D/C HOME
--- NOTE | 2018-08-13 12:59 | CP.PCM.PN ---
Subjective - Date & Time of Evaluation Date of Evaluation: 08/13/18 Time of Evaluation: 08:00 - Subjective Subjective: improving in ICU less fever less cough less sob Objective - Vital Signs/Intake and Output Vital Signs (last 24 hours): Temp Pulse Resp BP Pulse Ox 98.6 F 82 20 127/69 100 08/13/18 12:20 08/13/18 12:20 08/13/18 12:20 08/13/18 12:20 08/13/18 12:20 Intake and Output: 08/13/18 08/13/18 06:59 18:59 Intake Total Output Total Balance - Medications Medications: Current Medications Acetaminophen (Tylenol 325mg Tab) 650 mg PO Q6 PRN PRN Reason: Pain, moderate (4-7) Last Admin: 08/09/18 11:26 Dose: 650 mg Acetaminophen (Tylenol 325mg Tab) 650 mg PO Q6 PRN PRN Reason: Temperature Last Admin: 08/13/18 08:51 Dose: 650 mg Albuterol/Ipratropium (Duoneb 3 Mg/0.5 Mg (3 Ml) Ud) 3 ml INH RQ6 [facility] Last Admin: 08/13/18 01:00 Dose: 3 ml Dimethicone (Proshield Plus Skin Protectant) 1 applic TOP Q8 [facility] Last Admin: 08/13/18 08:55 Dose: 1 applic Ferrous Sulfate (Feosol) 325 mg PO TID [facility] Last Admin: 08/11/18 11:21 Dose: Not Given Furosemide (Lasix) 40 mg IVP Q12 [facility] Last Admin: 08/13/18 09:01 Dose: 40 mg Vancomycin HCl 1 gm/ Sodium (Chloride) 250 mls @ 250 mls/hr IVPB MWF [facility]; Protocol Last Admin: 08/11/18 08:39 Dose: 250 mls/hr Metronidazole (Flagyl 500mg/100ml Ns) 100 mls @ 100 mls/hr IVPB Q8 [facility]; Protocol Last Admin: 08/13/18 10:09 Dose: 100 mls/hr Meropenem 500 mg/ Sodium (Chloride) 100 mls @ 100 mls/hr IVPB Q8 [facility]; Protocol Last Admin: 08/13/18 11:19 Dose: 100 mls/hr Levetiracetam 500 mg/ Dextrose 105 mls @ 210 mls/hr IVPB Q12 [facility] Last Admin: 08/13/18 12:35 Dose: 210 mls/hr Micafungin Sodium 100 mg/ (Dextrose) 100 mls @ 100 mls/hr IVPB DAILY [facility]; Protocol Last Admin: 08/12/18 10:08 Dose: 100 mls/hr Insulin Human Regular (Humulin R) 0 units SC ACCU-CHECK [facility]; Protocol Last Admin: 08/13/18 12:39 Dose: 3 u Insulin Lispro Protam/Lispro Human (Humalog Mix 75/25) 5 units SC BID [facility]; Protocol Last Admin: 08/13/18 09:03 Dose: 5 units Ketorolac Tromethamine (Toradol) 30 mg IVP Q6 PRN PRN Reason: Pain, moderate (4-7) Last Admin: 08/09/18 22:44 Dose: 30 mg Labetalol HCl (Trandate) 20 mg IVP Q4 PRN PRN Reason: Systolic Blood Pressure Last Admin: 08/10/18 02:16 Dose: 20 mg Levetiracetam (Keppra) 500 mg PO BID [facility] Last Admin: 08/11/18 11:55 Dose: Not Given Metoprolol Tartrate (Lopressor) 50 mg PO Q12 [facility] Last Admin: 08/11/18 11:56 Dose: Not Given Metoprolol Tartrate (Lopressor) 5 mg IVP Q8 [facility] Last Admin: 08/13/18 08:58 Dose: 5 mg Ondansetron HCl (Zofran Inj) 4 mg IVP Q6 PRN PRN Reason: Nausea/Vomiting Last Admin: 08/08/18 01:04 Dose: 4 mg Pregabalin (Lyrica) 100 mg PO Q8 [facility] Last Admin: 08/11/18 10:12 Dose: Not Given Vitamin B Complex/Vit C/Folic Acid (Nephro-Everardo) 1 tab PO DAILY [facility] Last Admin: 08/11/18 11:22 Dose: Not Given - Labs Labs: 08/12/18 04:45 08/12/18 04:45 PT 16.2 Seconds (9.8-13.1) H 08/04/18 10:28 INR 1.4 08/04/18 10:28 APTT 35.6 Seconds (25.6-37.1) 08/04/18 10:28 - Constitutional Appears: Non-toxic, No Acute Distress, Chronically Ill - Head Exam Head Exam: NORMOCEPHALIC - Eye Exam Eye Exam: absent: Scleral icterus - ENT Exam ENT Exam: Mucous Membranes Dry - Neck Exam Neck Exam: absent: Lymphadenopathy - Respiratory Exam Respiratory Exam: Decreased Breath Sounds, Rhonchi - Cardiovascular Exam Cardiovascular Exam: REGULAR RHYTHM, +S1, +S2 - GI/Abdominal Exam GI & Abdominal Exam: Distended, Soft - Rectal Exam Rectal Exam: Deferred - Exam Exam: NORMAL INSPECTION - Extremities Exam Extremities Exam: absent: Pedal Edema - Back Exam Back Exam: absent: CVA tenderness (L), CVA tenderness (R) - Neurological Exam Neurological Exam: Alert, Awake, CN II-XII Intact Neuro motor strength exam: Left Upper Extremity: 4, Right Upper Extremity: 0, Left Lower Extremity: 4, Right Lower Extremity: 0 - Psychiatric Exam Psychiatric exam: Depressed - Skin Skin Exam: Dry, Intact Assessment and Plan (1) Sepsis Status: Acute (2) Change in mental state Status: Acute (3) History of CVA with residual deficit Status: Acute (4) Diabetes 1.5, managed as type 2 Status: Chronic (5) History of CVA (cerebrovascular accident) Status: Chronic (6) NSTEMI (non-ST elevated myocardial infarction) Status: Acute (7) JORGE A (acute kidney injury) Status: Acute (8) Pansinusitis Status: Acute (9) Pneumonia Status: Acute (10) Nephrotic syndrome Status: Acute - Assessment and Plan (Free Text) Assessment: improved CHF/pneumonia IV antibiotics renewed
[2018-08-13] MEDS: Micafungin 100 MG in Dextrose 5% In Water 100 ML IVPB SCH (13:13)
--- NOTE | 2018-08-13 14:00 | RAD ---
Date of service: 08/13/2018 PROCEDURE: CHEST RADIOGRAPH, 1 VIEW HISTORY: RESPIRATORY FAILURE/PLEURAL EFFUSION COMPARISON: 08/11/2018 FINDINGS: LUNGS: Bilateral infiltrates, unchanged. PLEURA: Right pleural effusion. CARDIOVASCULAR: No aortic atherosclerotic calcification present. Status post CABG. OSSEOUS STRUCTURES: No significant abnormalities. VISUALIZED UPPER ABDOMEN: Normal. OTHER FINDINGS: Tubes and catheters unchanged. IMPRESSION: CHF, not significant changed.
--- NOTE | 2018-08-13 14:09 | CP.PCM.PN ---
Subjective - Date & Time of Evaluation Date of Evaluation: 08/13/18 Time of Evaluation: 14:05 - Subjective Subjective: renal note no events overnight vitals reviewed heent normal op moist no jvd s1s2 present no resp distress abd soft nt nd ao times 3 no fnd acute Respiratory failure Acute renal failure/acute kidney injury related to multifactorial including sepsis. Diabetes mellitus and history of hypertension history of CVA. encephalopathy patient improving mental status much better and more awake hyperurecemia resolved Hyperphosphatemia corrected DC calcium acetate Shock liver Nephrotic syndrome with 7 gram proteinuria based on protein to creatinine ratio Hypokalemia. Given potassium chloride Hypomagnesemia Hypernatremia resolved renal function stable no labs today monitor uop volume stable monitor phos levels Objective - Vital Signs/Intake and Output Vital Signs (last 24 hours): Temp Pulse Resp BP Pulse Ox 98.6 F 82 20 127/69 100 08/13/18 12:20 08/13/18 12:20 08/13/18 12:20 08/13/18 12:20 08/13/18 12:20 Intake and Output: 08/13/18 08/13/18 06:59 18:59 Intake Total Output Total Balance - Medications Medications: Current Medications Acetaminophen (Tylenol 325mg Tab) 650 mg PO Q6 PRN PRN Reason: Pain, moderate (4-7) Last Admin: 08/09/18 11:26 Dose: 650 mg Acetaminophen (Tylenol 325mg Tab) 650 mg PO Q6 PRN PRN Reason: Temperature Last Admin: 08/13/18 08:51 Dose: 650 mg Albuterol/Ipratropium (Duoneb 3 Mg/0.5 Mg (3 Ml) Ud) 3 ml INH RQ6 [facility] Last Admin: 08/13/18 13:54 Dose: 3 ml Dimethicone (Proshield Plus Skin Protectant) 1 applic TOP Q8 [facility] Last Admin: 08/13/18 08:55 Dose: 1 applic Ferrous Sulfate (Feosol) 325 mg PO TID [facility] Last Admin: 08/11/18 11:21 Dose: Not Given Furosemide (Lasix) 40 mg IVP Q12 [facility] Last Admin: 08/13/18 09:01 Dose: 40 mg Vancomycin HCl 1 gm/ Sodium (Chloride) 250 mls @ 250 mls/hr IVPB MWF [facility]; Protocol Last Admin: 03/08/19 08:39 Dose: 250 mls/hr Metronidazole (Flagyl 500mg/100ml Ns) 100 mls @ 100 mls/hr IVPB Q8 [facility]; Protocol Last Admin: 08/13/18 10:09 Dose: 100 mls/hr Meropenem 500 mg/ Sodium (Chloride) 100 mls @ 100 mls/hr IVPB Q8 [facility]; Protocol Last Admin: 08/13/18 11:19 Dose: 100 mls/hr Levetiracetam 500 mg/ Dextrose 105 mls @ 210 mls/hr IVPB Q12 [facility] Last Admin: 08/13/18 12:35 Dose: 210 mls/hr Micafungin Sodium 100 mg/ (Dextrose) 100 mls @ 100 mls/hr IVPB DAILY [facility]; Protocol Last Admin: 08/13/18 13:13 Dose: 100 mls/hr Insulin Human Regular (Humulin R) 0 units SC ACCU-CHECK [facility]; Protocol Last Admin: 08/13/18 12:39 Dose: 3 u Insulin Lispro Protam/Lispro Human (Humalog Mix 75/25) 5 units SC BID [facility]; Protocol Last Admin: 08/13/18 09:03 Dose: 5 units Ketorolac Tromethamine (Toradol) 30 mg IVP Q6 PRN PRN Reason: Pain, moderate (4-7) Last Admin: 08/09/18 22:44 Dose: 30 mg Labetalol HCl (Trandate) 20 mg IVP Q4 PRN PRN Reason: Systolic Blood Pressure Last Admin: 08/10/18 02:16 Dose: 20 mg Levetiracetam (Keppra) 500 mg PO BID [facility] Last Admin: 08/11/18 11:55 Dose: Not Given Metoprolol Tartrate (Lopressor) 50 mg PO Q12 [facility] Last Admin: 08/11/18 11:56 Dose: Not Given Metoprolol Tartrate (Lopressor) 5 mg IVP Q8 [facility] Last Admin: 08/13/18 08:58 Dose: 5 mg Ondansetron HCl (Zofran Inj) 4 mg IVP Q6 PRN PRN Reason: Nausea/Vomiting Last Admin: 08/08/18 01:04 Dose: 4 mg Pregabalin (Lyrica) 100 mg PO Q8 [facility] Last Admin: 08/11/18 10:12 Dose: Not Given Vitamin B Complex/Vit C/Folic Acid (Nephro-Everardo) 1 tab PO DAILY [facility] Last Admin: 08/11/18 11:22 Dose: Not Given - Labs Labs: 08/12/18 04:45 08/12/18 04:45 PT 16.2 Seconds (9.8-13.1) H 08/04/18 10:28 INR 1.4 08/04/18 10:28 APTT 35.6 Seconds (25.6-37.1) 08/04/18 10:28
[2018-08-13 14:27] LABS: HEMOGLOBIN 9.2 g/dL (12.0-16.0); MEAN CELL VOLUME 79.4 fl (81.0-99.0); MEAN CORPUSCULAR HEMOGLOBIN 25.6 pg (27.0-31.0); MEAN CORPUSCULAR HGB CONC 32.3 g/dL (33.0-37.0); RBC 3.6 Mil/uL (3.80-5.20); RED CELL DISTRIBUTION WIDTH 22.9 % (11.5-14.5); WHITE BLOOD COUNT 12.8 K/uL (4.8-10.8)
[2018-08-13 15:07] LABS: ALB/GLOB RATIO 0.8 (1.0-2.1); ALBUMIN 3.2 g/dL (3.5-5.0); CALCIUM 8.1 mg/dL (8.4-10.2)
[2018-08-13] MEDS: Potassium Chloride 20 mEq 100 ML IVPB SCH ×2 (16:14→18:32)
--- NOTE | 2018-08-13 18:08 | CP.PCM.PN ---
Subjective - Date & Time of Evaluation Date of Evaluation: 08/11/18 Time of Evaluation: 10:30 - Subjective Subjective: Patient is much more awake. Has no fever. Noted improvement in renal function Has no fever. Objective - Vital Signs/Intake and Output Vital Signs (last 24 hours): Temp Pulse Resp BP Pulse Ox 98.2 F 67 18 157/71 H 100 08/13/18 16:02 08/13/18 17:37 08/13/18 16:02 08/13/18 17:37 08/13/18 16:02 Intake and Output: 08/13/18 08/13/18 06:59 18:59 Intake Total Output Total Balance - Medications Medications: Current Medications Acetaminophen (Tylenol 325mg Tab) 650 mg PO Q6 PRN PRN Reason: Temperature Last Admin: 08/13/18 08:51 Dose: 650 mg Acetaminophen (Tylenol 325mg Tab) 650 mg PO Q6 PRN PRN Reason: Pain <5 Albuterol/Ipratropium (Duoneb 3 Mg/0.5 Mg (3 Ml) Ud) 3 ml INH RQ6 [facility] Last Admin: 08/13/18 13:54 Dose: 3 ml Dimethicone (Proshield Plus Skin Protectant) 1 applic TOP Q8 [facility] Last Admin: 08/13/18 16:15 Dose: 1 applic Ferrous Sulfate (Feosol) 325 mg PO TID [facility] Last Admin: 08/11/18 11:21 Dose: Not Given Furosemide (Lasix) 40 mg IVP Q12 [facility] Last Admin: 08/13/18 09:01 Dose: 40 mg Vancomycin HCl 1 gm/ Sodium (Chloride) 250 mls @ 250 mls/hr IVPB MWF [facility]; Protocol Last Admin: 08/11/18 08:39 Dose: 250 mls/hr Metronidazole (Flagyl 500mg/100ml Ns) 100 mls @ 100 mls/hr IVPB Q8 [facility]; Protocol Last Admin: 08/13/18 16:11 Dose: 100 mls/hr Meropenem 500 mg/ Sodium (Chloride) 100 mls @ 100 mls/hr IVPB Q8 [facility]; Protocol Last Admin: 08/13/18 11:19 Dose: 100 mls/hr Levetiracetam 500 mg/ Dextrose 105 mls @ 210 mls/hr IVPB Q12 [facility] Last Admin: 08/13/18 12:35 Dose: 210 mls/hr Micafungin Sodium 100 mg/ (Dextrose) 100 mls @ 100 mls/hr IVPB DAILY [facility]; Protocol Last Admin: 08/13/18 13:13 Dose: 100 mls/hr Potassium Chloride (Potassium Chloride 20 Meq/100 Ml) 100 mls @ 50 mls/hr IVPB Q2 [facility] Stop: 08/13/18 19:59 Last Admin: 08/13/18 16:14 Dose: 50 mls/hr Insulin Human Regular (Humulin R) 0 units SC ACCU-CHECK [facility]; Protocol Last Admin: 08/13/18 17:35 Dose: Not Given Insulin Lispro Protam/Lispro Human (Humalog Mix 75/25) 5 units SC BID [facility]; Protocol Last Admin: 08/13/18 17:34 Dose: 5 units Ketorolac Tromethamine (Toradol) 30 mg IVP Q6 PRN PRN Reason: Pain 5 or greater Labetalol HCl (Trandate) 20 mg IVP Q4 PRN PRN Reason: Systolic Blood Pressure Last Admin: 08/10/18 02:16 Dose: 20 mg Levetiracetam (Keppra) 500 mg PO BID [facility] Last Admin: 08/11/18 11:55 Dose: Not Given Metoprolol Tartrate (Lopressor) 50 mg PO Q12 [facility] Last Admin: 08/11/18 11:56 Dose: Not Given Metoprolol Tartrate (Lopressor) 5 mg IVP Q8 [facility] Last Admin: 08/13/18 17:37 Dose: 5 mg Ondansetron HCl (Zofran Inj) 4 mg IVP Q6 PRN PRN Reason: Nausea/Vomiting Last Admin: 08/08/18 01:04 Dose: 4 mg Potassium Chloride (K-Dur 20 Meq Er Tab) 20 meq PO DAILY [facility] Pregabalin (Lyrica) 100 mg PO Q8 [facility] Last Admin: 08/11/18 10:12 Dose: Not Given Vitamin B Complex/Vit C/Folic Acid (Nephro-Everardo) 1 tab PO DAILY [facility] Last Admin: 08/11/18 11:22 Dose: Not Given - Labs Labs: 08/13/18 14:15 08/13/18 14:15 PT 16.2 Seconds (9.8-13.1) H 08/04/18 10:28 INR 1.4 08/04/18 10:28 APTT 35.6 Seconds (25.6-37.1) 08/04/18 10:28 - Head Exam Head Exam: NORMAL INSPECTION - Eye Exam Eye Exam: Normal appearance - ENT Exam ENT Exam: Mucous Membranes Moist - Respiratory Exam Respiratory Exam: Decreased Breath Sounds - Cardiovascular Exam Cardiovascular Exam: REGULAR RHYTHM - GI/Abdominal Exam GI & Abdominal Exam: Normal Bowel Sounds - Neurological Exam Neurological Exam: Awake Assessment and Plan (1) JORGE A (acute kidney injury) Status: Acute (2) Acute respiratory failure with hypoxia Status: Acute (3) Aspiration pneumonia Status: Acute (4) Elevated liver enzymes Status: Acute (5) Sepsis Status: Acute (6) Toxic metabolic encephalopathy Status: Acute - Assessment and Plan (Free Text) Plan: Cont meds Con ttx Cont cautious fluids Cont IV antibiotics
--- NOTE | 2018-08-13 18:13 | CP.PCM.PN ---
Subjective - Date & Time of Evaluation Date of Evaluation: 08/12/18 Time of Evaluation: 11:00 - Subjective Subjective: Patient is much more awake. CT scan showed congestive changes and infiltrate. Has low grade fever. Has mild SOB. Objective - Vital Signs/Intake and Output Vital Signs (last 24 hours): Temp Pulse Resp BP Pulse Ox 98.2 F 67 18 157/71 H 100 08/13/18 16:02 08/13/18 17:37 08/13/18 16:02 08/13/18 17:37 08/13/18 16:02 Intake and Output: 08/13/18 08/13/18 06:59 18:59 Intake Total Output Total Balance - Medications Medications: Current Medications Acetaminophen (Tylenol 325mg Tab) 650 mg PO Q6 PRN PRN Reason: Temperature Last Admin: 08/13/18 08:51 Dose: 650 mg Acetaminophen (Tylenol 325mg Tab) 650 mg PO Q6 PRN PRN Reason: Pain <5 Albuterol/Ipratropium (Duoneb 3 Mg/0.5 Mg (3 Ml) Ud) 3 ml INH RQ6 [facility] Last Admin: 08/13/18 13:54 Dose: 3 ml Dimethicone (Proshield Plus Skin Protectant) 1 applic TOP Q8 [facility] Last Admin: 08/13/18 16:15 Dose: 1 applic Ferrous Sulfate (Feosol) 325 mg PO TID [facility] Last Admin: 08/11/18 11:21 Dose: Not Given Furosemide (Lasix) 40 mg IVP Q12 [facility] Last Admin: 08/13/18 09:01 Dose: 40 mg Vancomycin HCl 1 gm/ Sodium (Chloride) 250 mls @ 250 mls/hr IVPB MWF [facility]; Protocol Last Admin: 08/11/18 08:39 Dose: 250 mls/hr Metronidazole (Flagyl 500mg/100ml Ns) 100 mls @ 100 mls/hr IVPB Q8 [facility]; Protocol Last Admin: 08/13/18 16:11 Dose: 100 mls/hr Meropenem 500 mg/ Sodium (Chloride) 100 mls @ 100 mls/hr IVPB Q8 [facility]; Protocol Last Admin: 08/13/18 11:19 Dose: 100 mls/hr Levetiracetam 500 mg/ Dextrose 105 mls @ 210 mls/hr IVPB Q12 [facility] Last Admin: 08/13/18 12:35 Dose: 210 mls/hr Micafungin Sodium 100 mg/ (Dextrose) 100 mls @ 100 mls/hr IVPB DAILY [facility]; Protocol Last Admin: 08/13/18 13:13 Dose: 100 mls/hr Potassium Chloride (Potassium Chloride 20 Meq/100 Ml) 100 mls @ 50 mls/hr IVPB Q2 [facility] Stop: 08/13/18 19:59 Last Admin: 08/13/18 16:14 Dose: 50 mls/hr Insulin Human Regular (Humulin R) 0 units SC ACCU-CHECK [facility]; Protocol Last Admin: 08/13/18 17:35 Dose: Not Given Insulin Lispro Protam/Lispro Human (Humalog Mix 75/25) 5 units SC BID [facility]; Protocol Last Admin: 08/13/18 17:34 Dose: 5 units Ketorolac Tromethamine (Toradol) 30 mg IVP Q6 PRN PRN Reason: Pain 5 or greater Labetalol HCl (Trandate) 20 mg IVP Q4 PRN PRN Reason: Systolic Blood Pressure Last Admin: 08/10/18 02:16 Dose: 20 mg Levetiracetam (Keppra) 500 mg PO BID [facility] Last Admin: 08/11/18 11:55 Dose: Not Given Metoprolol Tartrate (Lopressor) 50 mg PO Q12 [facility] Last Admin: 08/11/18 11:56 Dose: Not Given Metoprolol Tartrate (Lopressor) 5 mg IVP Q8 [facility] Last Admin: 08/13/18 17:37 Dose: 5 mg Ondansetron HCl (Zofran Inj) 4 mg IVP Q6 PRN PRN Reason: Nausea/Vomiting Last Admin: 08/08/18 01:04 Dose: 4 mg Potassium Chloride (K-Dur 20 Meq Er Tab) 20 meq PO DAILY [facility] Pregabalin (Lyrica) 100 mg PO Q8 [facility] Last Admin: 08/11/18 10:12 Dose: Not Given Vitamin B Complex/Vit C/Folic Acid (Nephro-Everardo) 1 tab PO DAILY [facility] Last Admin: 08/11/18 11:22 Dose: Not Given - Labs Labs: 08/13/18 14:15 08/13/18 14:15 PT 16.2 Seconds (9.8-13.1) H 08/04/18 10:28 INR 1.4 08/04/18 10:28 APTT 35.6 Seconds (25.6-37.1) 08/04/18 10:28 - Head Exam Head Exam: NORMAL INSPECTION - ENT Exam ENT Exam: Mucous Membranes Moist - Respiratory Exam Respiratory Exam: Decreased Breath Sounds - Cardiovascular Exam Cardiovascular Exam: REGULAR RHYTHM - GI/Abdominal Exam GI & Abdominal Exam: Normal Bowel Sounds - Neurological Exam Neurological Exam: Awake - Psychiatric Exam Psychiatric exam: Normal Mood Assessment and Plan (1) JORGE A (acute kidney injury) Status: Acute (2) Acute respiratory failure with hypoxia Status: Acute (3) Aspiration pneumonia Status: Acute (4) Elevated liver enzymes Status: Acute (5) Sepsis Status: Acute (6) Toxic metabolic encephalopathy Status: Acute - Assessment and Plan (Free Text) Plan: Cont meds Cont tx Cont PT. Resp therapy
--- NOTE | 2018-08-13 18:15 | CP.PCM.PN ---
Subjective - Date & Time of Evaluation Date of Evaluation: 08/13/18 Time of Evaluation: 16:00 - Subjective Subjective: Patient remains stable. Noted improvement of renal function Has no fever. Has better appetite. Objective - Vital Signs/Intake and Output Vital Signs (last 24 hours): Temp Pulse Resp BP Pulse Ox 98.2 F 67 18 157/71 H 100 08/13/18 16:02 08/13/18 17:37 08/13/18 16:02 08/13/18 17:37 08/13/18 16:02 Intake and Output: 08/13/18 08/13/18 06:59 18:59 Intake Total Output Total Balance - Medications Medications: Current Medications Acetaminophen (Tylenol 325mg Tab) 650 mg PO Q6 PRN PRN Reason: Temperature Last Admin: 08/13/18 08:51 Dose: 650 mg Acetaminophen (Tylenol 325mg Tab) 650 mg PO Q6 PRN PRN Reason: Pain <5 Albuterol/Ipratropium (Duoneb 3 Mg/0.5 Mg (3 Ml) Ud) 3 ml INH RQ6 [facility] Last Admin: 08/13/18 13:54 Dose: 3 ml Dimethicone (Proshield Plus Skin Protectant) 1 applic TOP Q8 [facility] Last Admin: 08/13/18 16:15 Dose: 1 applic Ferrous Sulfate (Feosol) 325 mg PO TID [facility] Last Admin: 08/11/18 11:21 Dose: Not Given Furosemide (Lasix) 40 mg IVP Q12 [facility] Last Admin: 08/13/18 09:01 Dose: 40 mg Vancomycin HCl 1 gm/ Sodium (Chloride) 250 mls @ 250 mls/hr IVPB MWF [facility]; Protocol Last Admin: 08/11/18 08:39 Dose: 250 mls/hr Metronidazole (Flagyl 500mg/100ml Ns) 100 mls @ 100 mls/hr IVPB Q8 [facility]; Protocol Last Admin: 08/13/18 16:11 Dose: 100 mls/hr Meropenem 500 mg/ Sodium (Chloride) 100 mls @ 100 mls/hr IVPB Q8 [facility]; Protocol Last Admin: 08/13/18 11:19 Dose: 100 mls/hr Levetiracetam 500 mg/ Dextrose 105 mls @ 210 mls/hr IVPB Q12 [facility] Last Admin: 08/13/18 12:35 Dose: 210 mls/hr Micafungin Sodium 100 mg/ (Dextrose) 100 mls @ 100 mls/hr IVPB DAILY [facility]; Protocol Last Admin: 08/13/18 13:13 Dose: 100 mls/hr Potassium Chloride (Potassium Chloride 20 Meq/100 Ml) 100 mls @ 50 mls/hr IVPB Q2 [facility] Stop: 08/13/18 19:59 Last Admin: 08/13/18 16:14 Dose: 50 mls/hr Insulin Human Regular (Humulin R) 0 units SC ACCU-CHECK [facility]; Protocol Last Admin: 08/13/18 17:35 Dose: Not Given Insulin Lispro Protam/Lispro Human (Humalog Mix 75/25) 5 units SC BID [facility]; Protocol Last Admin: 08/13/18 17:34 Dose: 5 units Ketorolac Tromethamine (Toradol) 30 mg IVP Q6 PRN PRN Reason: Pain 5 or greater Labetalol HCl (Trandate) 20 mg IVP Q4 PRN PRN Reason: Systolic Blood Pressure Last Admin: 08/10/18 02:16 Dose: 20 mg Levetiracetam (Keppra) 500 mg PO BID [facility] Last Admin: 08/11/18 11:55 Dose: Not Given Metoprolol Tartrate (Lopressor) 50 mg PO Q12 [facility] Last Admin: 08/11/18 11:56 Dose: Not Given Metoprolol Tartrate (Lopressor) 5 mg IVP Q8 [facility] Last Admin: 08/13/18 17:37 Dose: 5 mg Ondansetron HCl (Zofran Inj) 4 mg IVP Q6 PRN PRN Reason: Nausea/Vomiting Last Admin: 08/08/18 01:04 Dose: 4 mg Potassium Chloride (K-Dur 20 Meq Er Tab) 20 meq PO DAILY [facility] Pregabalin (Lyrica) 100 mg PO Q8 [facility] Last Admin: 08/11/18 10:12 Dose: Not Given Vitamin B Complex/Vit C/Folic Acid (Nephro-Everardo) 1 tab PO DAILY [facility] Last Admin: 08/11/18 11:22 Dose: Not Given - Labs Labs: 08/13/18 14:15 08/13/18 14:15 PT 16.2 Seconds (9.8-13.1) H 03/01/19 10:28 INR 1.4 08/04/18 10:28 APTT 35.6 Seconds (25.6-37.1) 08/04/18 10:28 - Head Exam Head Exam: NORMAL INSPECTION - Eye Exam Eye Exam: Normal appearance - ENT Exam ENT Exam: Mucous Membranes Moist - Respiratory Exam Respiratory Exam: Decreased Breath Sounds - Cardiovascular Exam Cardiovascular Exam: REGULAR RHYTHM - GI/Abdominal Exam GI & Abdominal Exam: Normal Bowel Sounds - Neurological Exam Neurological Exam: Awake Assessment and Plan (1) JORGE A (acute kidney injury) Status: Acute (2) Acute respiratory failure with hypoxia Status: Acute (3) Aspiration pneumonia Status: Acute (4) Elevated liver enzymes Status: Acute (5) Sepsis Status: Acute (6) Toxic metabolic encephalopathy Status: Acute - Assessment and Plan (Free Text) Plan: Cont meds Cont tx Cont PT recheck labs in am DC [facility] Phys therapy check probnp in am
[2018-08-14] MEDS: Meropenem 500 MG in Sodium Chloride 0.9% 100 ML IVPB SCH ×3 (00:01→20:02)
[2018-08-14] MEDS: Proshield Plus GEL TOP SCH ×3 (00:01→16:50)
[2018-08-14] MEDS: Metoprolol 1 mg/ml Inj IVP SCH ×3 (00:15→16:50)
[2018-08-14] MEDS: metroNIDAZOLE 500mg/100ml NS 100 ML IVPB SCH ×3 (00:50→16:50)
[2018-08-14] MEDS: Albuterol-Ipratrop 3 mg / 0.5 (3 ml) UD INH SCH ×4 (02:51→20:07)
[2018-08-14] MEDS: Insulin Regular 100 units/ml SC SCH ×4 (06:08→22:28)
[2018-08-14] MEDS: Insulin Lispro Mix 75/25 100 units/ml (HumaLog) 10ml SC SCH ×2 (09:12→16:53)
[2018-08-14] MEDS: Micafungin 100 MG in Dextrose 5% In Water 100 ML IVPB SCH (09:57)
--- NOTE | 2018-08-14 10:27 | CP.PCM.PN ---
Subjective - Date & Time of Evaluation Date of Evaluation: 08/14/18 Time of Evaluation: 10:27 - Subjective Subjective: Patient in bed opening her eyes and communicating better Vital signs noted to be stable Leukocytosis trending down Objective - Vital Signs/Intake and Output Vital Signs (last 24 hours): Temp Pulse Resp BP Pulse Ox 98.5 F 72 20 135/71 94 L 08/14/18 07:46 08/14/18 07:46 08/14/18 07:46 08/14/18 09:10 08/14/18 07:46 - Medications Medications: Current Medications Acetaminophen (Tylenol 325mg Tab) 650 mg PO Q6 PRN PRN Reason: Temperature Last Admin: 08/13/18 08:51 Dose: 650 mg Acetaminophen (Tylenol 325mg Tab) 650 mg PO Q6 PRN PRN Reason: Pain <5 Last Admin: 08/14/18 00:44 Dose: 650 mg Albuterol/Ipratropium (Duoneb 3 Mg/0.5 Mg (3 Ml) Ud) 3 ml INH RQ6 [facility] Last Admin: 08/14/18 07:34 Dose: 3 ml Dimethicone (Proshield Plus Skin Protectant) 1 applic TOP Q8 [facility] Last Admin: 08/14/18 09:11 Dose: 1 applic Ferrous Sulfate (Feosol) 325 mg PO TID [facility] Last Admin: 08/11/18 11:21 Dose: Not Given Furosemide (Lasix) 40 mg IVP Q12 [facility] Last Admin: 08/14/18 09:10 Dose: 40 mg Vancomycin HCl 1 gm/ Sodium (Chloride) 250 mls @ 250 mls/hr IVPB MWF [facility]; Protocol Last Admin: 08/11/18 08:39 Dose: 250 mls/hr Metronidazole (Flagyl 500mg/100ml Ns) 100 mls @ 100 mls/hr IVPB Q8 [facility]; Protocol Last Admin: 08/14/18 00:50 Dose: 100 mls/hr Meropenem 500 mg/ Sodium (Chloride) 100 mls @ 100 mls/hr IVPB Q8 [facility]; Protocol Last Admin: 08/14/18 09:31 Dose: 100 mls/hr Levetiracetam 500 mg/ Dextrose 105 mls @ 210 mls/hr IVPB Q12 [facility] Last Admin: 08/14/18 08:57 Dose: 210 mls/hr Micafungin Sodium 100 mg/ (Dextrose) 100 mls @ 100 mls/hr IVPB DAILY [facility]; Protocol Last Admin: 08/14/18 09:57 Dose: 100 mls/hr Potassium Chloride (Potassium Chloride 10 Meq/100 Ml) 100 mls @ 100 mls/hr IVPB Q1 [facility] Stop: 08/14/18 12:59 Magnesium Sulfate 1 gm/ Sodium (Chloride) 102 mls @ 204 mls/hr IVPB ONCE ONE Stop: 08/14/18 10:51 Insulin Human Regular (Humulin R) 0 units SC ACCU-CHECK [facility]; Protocol Last Admin: 08/14/18 06:08 Dose: 1 u Insulin Lispro Protam/Lispro Human (Humalog Mix 75/25) 5 units SC BID [facility]; Protocol Last Admin: 08/14/18 09:12 Dose: 5 units Ketorolac Tromethamine (Toradol) 30 mg IVP Q6 PRN PRN Reason: Pain 5 or greater Last Admin: 08/14/18 09:55 Dose: 30 mg Labetalol HCl (Trandate) 20 mg IVP Q4 PRN PRN Reason: Systolic Blood Pressure Last Admin: 08/10/18 02:16 Dose: 20 mg Levetiracetam (Keppra) 500 mg PO BID [facility] Last Admin: 08/11/18 11:55 Dose: Not Given Metoprolol Tartrate (Lopressor) 50 mg PO Q12 [facility] Last Admin: 08/11/18 11:56 Dose: Not Given Metoprolol Tartrate (Lopressor) 5 mg IVP Q8 [facility] Last Admin: 08/14/18 09:28 Dose: 5 mg Ondansetron HCl (Zofran Inj) 4 mg IVP Q6 PRN PRN Reason: Nausea/Vomiting Last Admin: 08/08/18 01:04 Dose: 4 mg Potassium Chloride (K-Dur 20 Meq Er Tab) 20 meq PO DAILY [facility] Pregabalin (Lyrica) 100 mg PO Q8 [facility] Last Admin: 08/11/18 10:12 Dose: Not Given Vitamin B Complex/Vit C/Folic Acid (Nephro-Everardo) 1 tab PO DAILY [facility] Last Admin: 08/11/18 11:22 Dose: Not Given - Labs Labs: 08/13/18 14:15 08/14/18 04:55 PT 16.2 Seconds (9.8-13.1) H 08/04/18 10:28 INR 1.4 08/04/18 10:28 APTT 35.6 Seconds (25.6-37.1) 08/04/18 10:28 - Constitutional Appears: No Acute Distress - Eye Exam Eye Exam: Conjunctival injection - ENT Exam ENT Exam: Mucous Membranes Moist - Neck Exam Neck Exam: absent: Lymphadenopathy - Respiratory Exam Respiratory Exam: NORMAL BREATHING PATTERN - GI/Abdominal Exam GI & Abdominal Exam: Soft, Normal Bowel Sounds - Extremities Exam Extremities Exam: absent: Calf Tenderness - Back Exam Back Exam: absent: CVA tenderness (L), CVA tenderness (R) - Neurological Exam Neurological Exam: Awake - Skin Skin Exam: absent: Cyanosis Assessment and Plan (1) JORGE A (acute kidney injury) Assessment & Plan: Respiratory failure/ patient extubated Acute renal failure/acute kidney injury related to multifactorial including sepsis. Diabetes mellitus and history of hypertension history of CVA. encephalopathy patient improving mental status much better and more awake hyperurecemia corrected , Hyperphosphatemia corrected Shock liver improving liver function test Nephrotic syndrome proteinuria with 7 gram proteinuria based on protein to creatinine ratio Hypokalemia. Given potassium chloride Hypomagnesemia Hypernatremia corrected Recommendation Patient continues to have persistent hypokalemia need to repeat serum magnesium and continue to give magnesium supplement Persistent hypokalemia continue to need potassium supplement and to correct serum magnesium May function stable Status: Acute (2) Elevated liver enzymes Status: Acute (3) Elevated troponin level Status: Acute (4) Leukocytosis Status: Acute (5) Sepsis Status: Acute
[2018-08-14] MEDS ORDERED: Magnesium Sulfate 2 gm/50 ml 2 GM/50 ML BAG IVPB ONE (10:45)
[2018-08-14] MEDS: Potassium CL 10mEq/100ml 100 ML IVPB SCH ×3 (12:18→14:45)
[2018-08-14] MEDS: Enoxaparin 40 mg Syringe SC SCH (12:30)
[2018-08-14] MEDS: Potassium Chloride 20 mEq ER Tab PO SCH (16:54)
--- NOTE | 2018-08-14 18:36 | CP.PCM.PN ---
Subjective - Date & Time of Evaluation Date of Evaluation: 08/14/18 Time of Evaluation: 10:00 - Subjective Subjective: patient seen and examined at bedside. no family at bedside Interim events noted available diagnostic data reviewed Review of Systems unable to obtain due to status Objective Vital Signs Stable - Constitutional Appears: Chronically Ill Head Exam: NORMAL INSPECTION Respiratory Exam: CTABL Cardiovascular Exam: +S1, +S2 GI & Abdominal Exam: Soft, tender Neurological Exam: Alert, Awake Skin Exam: Normal Color, Warm Assessment and Plan monitor vitals monitor labs Cont meds Cont tx ID, Cardio, Neuro, Renal, Pulm following consultants appreciated input hypokalemia persists, replace, nephro on board rest of plan as ordered Objective - Vital Signs/Intake and Output Vital Signs (last 24 hours): Temp Pulse Resp BP Pulse Ox 98.1 F 70 18 149/77 98 08/14/18 15:41 08/14/18 15:41 08/14/18 15:41 08/14/18 15:41 08/14/18 15:41 - Medications Medications: Current Medications Acetaminophen (Tylenol 325mg Tab) 650 mg PO Q6 PRN PRN Reason: Temperature Last Admin: 08/13/18 08:51 Dose: 650 mg Acetaminophen (Tylenol 325mg Tab) 650 mg PO Q6 PRN PRN Reason: Pain <5 Last Admin: 08/14/18 00:44 Dose: 650 mg Albuterol/Ipratropium (Duoneb 3 Mg/0.5 Mg (3 Ml) Ud) 3 ml INH RQ6 [facility] Last Admin: 08/14/18 14:01 Dose: 3 ml Dimethicone (Proshield Plus Skin Protectant) 1 applic TOP Q8 [facility] Last Admin: 08/14/18 16:50 Dose: 1 applic Enoxaparin Sodium (Lovenox) 40 mg SC DAILY [facility]; Protocol Last Admin: 08/14/18 12:30 Dose: 40 mg Ferrous Sulfate (Feosol) 325 mg PO TID [facility] Last Admin: 08/11/18 11:21 Dose: Not Given Furosemide (Lasix) 40 mg IVP Q12 [facility] Last Admin: 08/14/18 09:10 Dose: 40 mg Vancomycin HCl 1 gm/ Sodium (Chloride) 250 mls @ 250 mls/hr IVPB MWF [facility]; Protocol Last Admin: 08/14/18 10:45 Dose: 250 mls/hr Metronidazole (Flagyl 500mg/100ml Ns) 100 mls @ 100 mls/hr IVPB Q8 [facility]; Protocol Last Admin: 08/14/18 16:50 Dose: 100 mls/hr Meropenem 500 mg/ Sodium (Chloride) 100 mls @ 100 mls/hr IVPB Q8 [facility]; Protocol Last Admin: 08/14/18 09:31 Dose: 100 mls/hr Levetiracetam 500 mg/ Dextrose 105 mls @ 210 mls/hr IVPB Q12 [facility] Last Admin: 08/14/18 08:57 Dose: 210 mls/hr Micafungin Sodium 100 mg/ (Dextrose) 100 mls @ 100 mls/hr IVPB DAILY [facility]; Protocol Last Admin: 08/14/18 09:57 Dose: 100 mls/hr Insulin Human Regular (Humulin R) 0 units SC ACCU-CHECK [facility]; Protocol Last Admin: 08/14/18 16:53 Dose: 2 u Insulin Lispro Protam/Lispro Human (Humalog Mix 75/25) 5 units SC BID [facility]; Protocol Last Admin: 08/14/18 16:53 Dose: 5 units Ketorolac Tromethamine (Toradol) 30 mg IVP Q6 PRN PRN Reason: Pain 5 or greater Last Admin: 08/14/18 09:55 Dose: 30 mg Labetalol HCl (Trandate) 20 mg IVP Q4 PRN PRN Reason: Systolic Blood Pressure Last Admin: 08/10/18 02:16 Dose: 20 mg Levetiracetam (Keppra) 500 mg PO BID [facility] Last Admin: 08/11/18 11:55 Dose: Not Given Metoprolol Tartrate (Lopressor) 50 mg PO Q12 [facility] Last Admin: 08/11/18 11:56 Dose: Not Given Metoprolol Tartrate (Lopressor) 5 mg IVP Q8 [facility] Last Admin: 08/14/18 16:50 Dose: 5 mg Ondansetron HCl (Zofran Inj) 4 mg IVP Q6 PRN PRN Reason: Nausea/Vomiting Last Admin: 08/08/18 01:04 Dose: 4 mg Potassium Chloride (K-Dur 20 Meq Er Tab) 20 meq PO DAILY [facility] Last Admin: 08/14/18 16:54 Dose: 20 meq Pregabalin (Lyrica) 100 mg PO Q8 [facility] Last Admin: 08/11/18 10:12 Dose: Not Given Vitamin B Complex/Vit C/Folic Acid (Nephro-Everardo) 1 tab PO DAILY [facility] Last Admin: 08/11/18 11:22 Dose: Not Given - Labs Labs: 08/13/18 14:15 08/14/18 04:55 PT 16.2 Seconds (9.8-13.1) H 08/04/18 10:28 INR 1.4 08/04/18 10:28 APTT 35.6 Seconds (25.6-37.1) 08/04/18 10:28 Assessment and Plan (1) Sepsis Status: Acute (2) JORGE A (acute kidney injury) Status: Acute (3) Abdominal pain Status: Acute (4) Hypokalemia Status: Acute (5) Respiratory failure Status: Resolved
[2018-08-15] MEDS: Metoprolol 1 mg/ml Inj IVP SCH ×2 (00:26→09:25)
[2018-08-15] MEDS: metroNIDAZOLE 500mg/100ml NS 100 ML IVPB SCH ×2 (00:27→09:23)
[2018-08-15] MEDS: Proshield Plus GEL TOP SCH ×3 (00:27→17:40)
[2018-08-15] MEDS: Meropenem 500 MG in Sodium Chloride 0.9% 100 ML IVPB SCH ×2 (00:28→09:26)
[2018-08-15] MEDS: Albuterol-Ipratrop 3 mg / 0.5 (3 ml) UD INH SCH ×5 (01:58→19:21)
[2018-08-15 05:22] LABS: HEMOGLOBIN 9.4 g/dL (12.0-16.0); MEAN CELL VOLUME 80.6 fl (81.0-99.0); MEAN CORPUSCULAR HEMOGLOBIN 25.8 pg (27.0-31.0); RBC 3.65 Mil/uL (3.80-5.20); RED CELL DISTRIBUTION WIDTH 27.2 % (11.5-14.5); WHITE BLOOD COUNT 10.2 K/uL (4.8-10.8)
[2018-08-15 05:58] LABS: BLOOD UREA NITROGEN 19 mg/dl (7-17); CALCIUM 7.9 mg/dL (8.4-10.2); GFR NON-AFRICAN AMERICAN 57
[2018-08-15] MEDS: Insulin Regular 100 units/ml SC SCH ×4 (06:24→22:11)
--- NOTE | 2018-08-15 08:11 | CP.PCM.PN ---
Subjective - Date & Time of Evaluation Date of Evaluation: 08/15/18 Time of Evaluation: 08:11 - Subjective Subjective: AWAKE AND ALERT VSS NO SOB OR CHEST PAINS RESPONDS TO VERBAL COMMANDS Objective - Vital Signs/Intake and Output Vital Signs (last 24 hours): Temp Pulse Resp BP Pulse Ox 98.1 F 65 18 124/72 97 08/15/18 07:51 08/15/18 07:51 08/15/18 07:51 08/15/18 07:51 08/15/18 07:51 - Medications Medications: Current Medications Acetaminophen (Tylenol 325mg Tab) 650 mg PO Q6 PRN PRN Reason: Temperature Last Admin: 08/13/18 08:51 Dose: 650 mg Acetaminophen (Tylenol 325mg Tab) 650 mg PO Q6 PRN PRN Reason: Pain <5 Last Admin: 08/15/18 00:22 Dose: 650 mg Albuterol/Ipratropium (Duoneb 3 Mg/0.5 Mg (3 Ml) Ud) 3 ml INH RQ6 [facility] Last Admin: 08/15/18 07:52 Dose: Not Given Dimethicone (Proshield Plus Skin Protectant) 1 applic TOP Q8 [facility] Last Admin: 08/15/18 00:27 Dose: 1 applic Enoxaparin Sodium (Lovenox) 40 mg SC DAILY [facility]; Protocol Last Admin: 08/14/18 12:30 Dose: 40 mg Ferrous Sulfate (Feosol) 325 mg PO TID [facility] Last Admin: 08/11/18 11:21 Dose: Not Given Furosemide (Lasix) 40 mg IVP Q12 [facility] Last Admin: 08/14/18 20:15 Dose: 40 mg Vancomycin HCl 1 gm/ Sodium (Chloride) 250 mls @ 250 mls/hr IVPB MWF [facility]; Protocol Last Admin: 08/14/18 10:45 Dose: 250 mls/hr Metronidazole (Flagyl 500mg/100ml Ns) 100 mls @ 100 mls/hr IVPB Q8 [facility]; Protocol Last Admin: 08/15/18 00:27 Dose: 100 mls/hr Meropenem 500 mg/ Sodium (Chloride) 100 mls @ 100 mls/hr IVPB Q8 [facility]; Protocol Last Admin: 08/15/18 00:28 Dose: 100 mls/hr Levetiracetam 500 mg/ Dextrose 105 mls @ 210 mls/hr IVPB Q12 [facility] Last Admin: 08/14/18 20:14 Dose: 210 mls/hr Micafungin Sodium 100 mg/ (Dextrose) 100 mls @ 100 mls/hr IVPB DAILY [facility]; Protocol Last Admin: 08/14/18 09:57 Dose: 100 mls/hr Insulin Human Regular (Humulin R) 0 units SC ACCU-CHECK [facility]; Protocol Last Admin: 08/15/18 06:24 Dose: Not Given Insulin Lispro Protam/Lispro Human (Humalog Mix 75/25) 5 units SC BID [facility]; Protocol Last Admin: 08/14/18 16:53 Dose: 5 units Ketorolac Tromethamine (Toradol) 30 mg IVP Q6 PRN PRN Reason: Pain 5 or greater Last Admin: 08/14/18 19:57 Dose: 30 mg Labetalol HCl (Trandate) 20 mg IVP Q4 PRN PRN Reason: Systolic Blood Pressure Last Admin: 08/10/18 02:16 Dose: 20 mg Levetiracetam (Keppra) 500 mg PO BID [facility] Last Admin: 08/11/18 11:55 Dose: Not Given Metoprolol Tartrate (Lopressor) 50 mg PO Q12 [facility] Last Admin: 08/11/18 11:56 Dose: Not Given Metoprolol Tartrate (Lopressor) 5 mg IVP Q8 [facility] Last Admin: 08/15/18 00:26 Dose: 5 mg Ondansetron HCl (Zofran Inj) 4 mg IVP Q6 PRN PRN Reason: Nausea/Vomiting Last Admin: 08/08/18 01:04 Dose: 4 mg Potassium Chloride (K-Dur 20 Meq Er Tab) 20 meq PO DAILY [facility] Last Admin: 08/14/18 16:54 Dose: 20 meq Pregabalin (Lyrica) 100 mg PO Q8 [facility] Last Admin: 08/11/18 10:12 Dose: Not Given Vitamin B Complex/Vit C/Folic Acid (Nephro-Everardo) 1 tab PO DAILY [facility] Last Admin: 08/11/18 11:22 Dose: Not Given - Labs Labs: 08/15/18 05:00 08/15/18 05:00 PT 16.2 Seconds (9.8-13.1) H 08/04/18 10:28 INR 1.4 08/04/18 10:28 APTT 35.6 Seconds (25.6-37.1) 08/04/18 10:28 - Constitutional Appears: No Acute Distress, Chronically Ill - Head Exam Head Exam: ATRAUMATIC, NORMAL INSPECTION, NORMOCEPHALIC - Eye Exam Eye Exam: EOMI, Normal appearance, PERRL Pupil Exam: NORMAL ACCOMODATION, PERRL - ENT Exam ENT Exam: Mucous Membranes Moist, Normal Exam - Neck Exam Neck Exam: Full ROM, Normal Inspection. absent: Lymphadenopathy - Respiratory Exam Respiratory Exam: Decreased Breath Sounds, Prolonged Expiratory Phase, Rales, NORMAL BREATHING PATTERN - Cardiovascular Exam Cardiovascular Exam: REGULAR RHYTHM, +S1, +S2. absent: Murmur - GI/Abdominal Exam GI & Abdominal Exam: Soft, Normal Bowel Sounds. absent: Tenderness - Rectal Exam Rectal Exam: NORMAL INSPECTION - Extremities Exam Extremities Exam: Full ROM, Normal Capillary Refill, Normal Inspection. absent: Joint Swelling, Pedal Edema - Back Exam Back Exam: NORMAL INSPECTION - Neurological Exam Neurological Exam: Alert, Awake, CN II-XII Intact - Psychiatric Exam Psychiatric exam: Normal Affect, Normal Mood - Skin Skin Exam: Dry, Intact, Normal Color, Warm Assessment and Plan - Assessment and Plan (Free Text) Assessment: SEPSIS IMPROVED RESPIRATORY FAILURE AND PLEURAL EFFUSION IMPROVED Plan: PLACE ON O2 VIA NC
[2018-08-15] MEDS ORDERED: Potassium Chloride 20 mEq/15 ml LIQ UD PO ONE (09:17)
[2018-08-15] MEDS: Insulin Lispro Mix 75/25 100 units/ml (HumaLog) 10ml SC SCH ×2 (09:23→17:40)
[2018-08-15] MEDS: Potassium Chloride 20 mEq ER Tab PO SCH (09:24)
[2018-08-15] MEDS: Enoxaparin 40 mg Syringe SC SCH (09:26)
[2018-08-15] MEDS: Micafungin 100 MG in Dextrose 5% In Water 100 ML IVPB SCH (09:27)
--- NOTE | 2018-08-15 10:16 | CP.PCM.PN ---
Subjective - Date & Time of Evaluation Date of Evaluation: 08/15/18 Time of Evaluation: 08:00 - Subjective Subjective: afeb alert NAD d/c IV antibiotics if ok with Dr Grier Objective - Vital Signs/Intake and Output Vital Signs (last 24 hours): Temp Pulse Resp BP Pulse Ox 98.1 F 68 18 124/72 97 08/15/18 07:51 08/15/18 09:25 08/15/18 07:51 08/15/18 09:25 08/15/18 07:51 - Medications Medications: Current Medications Acetaminophen (Tylenol 325mg Tab) 650 mg PO Q6 PRN PRN Reason: Temperature Last Admin: 08/13/18 08:51 Dose: 650 mg Acetaminophen (Tylenol 325mg Tab) 650 mg PO Q6 PRN PRN Reason: Pain <5 Last Admin: 08/15/18 00:22 Dose: 650 mg Albuterol/Ipratropium (Duoneb 3 Mg/0.5 Mg (3 Ml) Ud) 3 ml INH RQ6 [facility] Last Admin: 08/15/18 07:52 Dose: Not Given Dimethicone (Proshield Plus Skin Protectant) 1 applic TOP Q8 [facility] Last Admin: 08/15/18 09:27 Dose: 1 applic Enoxaparin Sodium (Lovenox) 40 mg SC DAILY [facility]; Protocol Last Admin: 08/15/18 09:26 Dose: 40 mg Ferrous Sulfate (Feosol) 325 mg PO TID [facility] Last Admin: 08/11/18 11:21 Dose: Not Given Furosemide (Lasix) 40 mg IVP Q12 [facility] Last Admin: 08/15/18 09:25 Dose: Not Given Vancomycin HCl 1 gm/ Sodium (Chloride) 250 mls @ 250 mls/hr IVPB MWF [facility]; Protocol Last Admin: 08/14/18 10:45 Dose: 250 mls/hr Metronidazole (Flagyl 500mg/100ml Ns) 100 mls @ 100 mls/hr IVPB Q8 [facility]; Protocol Last Admin: 08/15/18 09:23 Dose: 100 mls/hr Meropenem 500 mg/ Sodium (Chloride) 100 mls @ 100 mls/hr IVPB Q8 [facility]; Protocol Last Admin: 08/15/18 09:26 Dose: 100 mls/hr Levetiracetam 500 mg/ Dextrose 105 mls @ 210 mls/hr IVPB Q12 [facility] Last Admin: 08/15/18 09:24 Dose: 210 mls/hr Micafungin Sodium 100 mg/ (Dextrose) 100 mls @ 100 mls/hr IVPB DAILY [facility]; Protocol Last Admin: 08/15/18 09:27 Dose: 100 mls/hr Potassium Chloride (Potassium Cl 10meq/50ml Sterile Water) 50 mls @ 50 mls/hr IVPB Q1 [facility] Stop: 08/15/18 12:59 Insulin Human Regular (Humulin R) 0 units SC ACCU-CHECK [facility]; Protocol Last Admin: 08/15/18 06:24 Dose: Not Given Insulin Lispro Protam/Lispro Human (Humalog Mix 75/25) 5 units SC BID [facility]; Protocol Last Admin: 08/15/18 09:23 Dose: 5 units Ketorolac Tromethamine (Toradol) 30 mg IVP Q6 PRN PRN Reason: Pain 5 or greater Last Admin: 08/14/18 19:57 Dose: 30 mg Labetalol HCl (Trandate) 20 mg IVP Q4 PRN PRN Reason: Systolic Blood Pressure Last Admin: 08/10/18 02:16 Dose: 20 mg Levetiracetam (Keppra) 500 mg PO BID [facility] Last Admin: 08/11/18 11:55 Dose: Not Given Metoprolol Tartrate (Lopressor) 50 mg PO Q12 [facility] Last Admin: 08/11/18 11:56 Dose: Not Given Metoprolol Tartrate (Lopressor) 5 mg IVP Q8 [facility] Last Admin: 08/15/18 09:25 Dose: 5 mg Ondansetron HCl (Zofran Inj) 4 mg IVP Q6 PRN PRN Reason: Nausea/Vomiting Last Admin: 08/08/18 01:04 Dose: 4 mg Potassium Chloride (K-Dur 20 Meq Er Tab) 20 meq PO DAILY [facility] Last Admin: 08/15/18 09:24 Dose: 20 meq Pregabalin (Lyrica) 100 mg PO Q8 [facility] Last Admin: 08/11/18 10:12 Dose: Not Given Vitamin B Complex/Vit C/Folic Acid (Nephro-Everardo) 1 tab PO DAILY [facility] Last Admin: 08/11/18 11:22 Dose: Not Given - Labs Labs: 08/15/18 05:00 08/15/18 05:00 PT 16.2 Seconds (9.8-13.1) H 08/04/18 10:28 INR 1.4 08/04/18 10:28 APTT 35.6 Seconds (25.6-37.1) 08/04/18 10:28 - Constitutional Appears: Non-toxic, Chronically Ill - Head Exam Head Exam: NORMOCEPHALIC - Eye Exam Eye Exam: PERRL - ENT Exam ENT Exam: Mucous Membranes Dry - Neck Exam Neck Exam: Full ROM - Respiratory Exam Respiratory Exam: Decreased Breath Sounds - Cardiovascular Exam Cardiovascular Exam: REGULAR RHYTHM - GI/Abdominal Exam GI & Abdominal Exam: Distended - Rectal Exam Rectal Exam: Deferred - Exam Exam: NORMAL INSPECTION - Extremities Exam Extremities Exam: Pedal Edema - Back Exam Back Exam: NORMAL INSPECTION - Neurological Exam Neurological Exam: Alert - Psychiatric Exam Psychiatric exam: Normal Mood - Skin Skin Exam: Dry Assessment and Plan (1) Sepsis Status: Acute (2) Change in mental state Status: Acute (3) History of CVA with residual deficit Status: Acute (4) Diabetes 1.5, managed as type 2 Status: Chronic (5) History of CVA (cerebrovascular accident) Status: Chronic (6) NSTEMI (non-ST elevated myocardial infarction) Status: Acute (7) JORGE A (acute kidney injury) Status: Acute (8) Pansinusitis Status: Acute (9) Pneumonia Status: Acute (10) Nephrotic syndrome Status: Acute - Assessment and Plan (Free Text) Assessment: hold iv antibiotics reculture
[2018-08-15] MEDS: Potassium CL 10 MEQ/50 ML 50 ML IVPB SCH ×3 (10:51→15:08)
--- NOTE | 2018-08-15 11:27 | CP.PCM.PN ---
Subjective - Date & Time of Evaluation Date of Evaluation: 08/15/18 Time of Evaluation: 11:27 - Subjective Subjective: Patient trying to open eyes Patient trying to verbalize Vital signs noted to be stable. Objective - Vital Signs/Intake and Output Vital Signs (last 24 hours): Temp Pulse Resp BP Pulse Ox 98.1 F 68 18 124/72 97 08/15/18 07:51 08/15/18 09:25 08/15/18 07:51 08/15/18 09:25 08/15/18 07:51 - Medications Medications: Current Medications Acetaminophen (Tylenol 325mg Tab) 650 mg PO Q6 PRN PRN Reason: Temperature Last Admin: 08/13/18 08:51 Dose: 650 mg Acetaminophen (Tylenol 325mg Tab) 650 mg PO Q6 PRN PRN Reason: Pain <5 Last Admin: 08/15/18 00:22 Dose: 650 mg Albuterol/Ipratropium (Duoneb 3 Mg/0.5 Mg (3 Ml) Ud) 3 ml INH RQ6 [facility] Last Admin: 08/15/18 07:52 Dose: Not Given Dimethicone (Proshield Plus Skin Protectant) 1 applic TOP Q8 [facility] Last Admin: 08/15/18 09:27 Dose: 1 applic Enoxaparin Sodium (Lovenox) 40 mg SC DAILY [facility]; Protocol Last Admin: 08/15/18 09:26 Dose: 40 mg Ferrous Sulfate (Feosol) 325 mg PO TID [facility] Last Admin: 08/11/18 11:21 Dose: Not Given Potassium Chloride (Potassium Cl 10meq/50ml Sterile Water) 50 mls @ 50 mls/hr IVPB Q1 [facility] Stop: 08/15/18 12:59 Last Admin: 08/15/18 10:51 Dose: 50 mls/hr Insulin Human Regular (Humulin R) 0 units SC ACCU-CHECK [facility]; Protocol Last Admin: 08/15/18 06:24 Dose: Not Given Insulin Lispro Protam/Lispro Human (Humalog Mix 75/25) 5 units SC BID [facility]; Protocol Last Admin: 08/15/18 09:23 Dose: 5 units Ketorolac Tromethamine (Toradol) 30 mg IVP Q6 PRN PRN Reason: Pain 5 or greater Last Admin: 08/14/18 19:57 Dose: 30 mg Levetiracetam (Keppra) 500 mg PO BID [facility] Last Admin: 08/11/18 11:55 Dose: Not Given Metoprolol Tartrate (Lopressor) 50 mg PO Q12 [facility] Last Admin: 08/11/18 11:56 Dose: Not Given Ondansetron HCl (Zofran Inj) 4 mg IVP Q6 PRN PRN Reason: Nausea/Vomiting Last Admin: 08/08/18 01:04 Dose: 4 mg Potassium Chloride (K-Dur 20 Meq Er Tab) 20 meq PO DAILY [facility] Last Admin: 08/15/18 09:24 Dose: 20 meq - Labs Labs: 08/15/18 05:00 08/15/18 05:00 PT 16.2 Seconds (9.8-13.1) H 08/04/18 10:28 INR 1.4 08/04/18 10:28 APTT 35.6 Seconds (25.6-37.1) 08/04/18 10:28 - Constitutional Appears: No Acute Distress - Eye Exam Eye Exam: Conjunctival injection - ENT Exam ENT Exam: Mucous Membranes Moist - Neck Exam Neck Exam: absent: Lymphadenopathy - Respiratory Exam Respiratory Exam: NORMAL BREATHING PATTERN. absent: Chest Wall Tenderness - Cardiovascular Exam Cardiovascular Exam: absent: Gallop, JVD, Rubs - GI/Abdominal Exam GI & Abdominal Exam: Soft, Normal Bowel Sounds - Extremities Exam Extremities Exam: absent: Calf Tenderness - Back Exam Back Exam: absent: CVA tenderness (L), CVA tenderness (R) - Neurological Exam Neurological Exam: Altered - Skin Skin Exam: absent: Cyanosis Assessment and Plan (1) JORGE A (acute kidney injury) Assessment & Plan: Respiratory failure/ patient extubated Acute renal failure/acute kidney injury related to multifactorial including sepsis. Diabetes mellitus and history of hypertension history of CVA. encephalopathy patient improving mental status much better and more awake hyperurecemia corrected , Hyperphosphatemia corrected Shock liver improving liver function test Nephrotic syndrome proteinuria with 7 gram proteinuria based on protein to creatinine ratio Hypokalemia. Given potassium chloride Hypomagnesemia Hypernatremia corrected Recommendation Patient continues to have persistent hypokalemia need to repeat serum magnesium and continue to give magnesium supplement IV Kidney function stable Status: Acute (2) Elevated liver enzymes Status: Acute (3) Elevated troponin level Status: Acute (4) Leukocytosis Status: Acute (5) Sepsis Status: Acute
[2018-08-15] MEDS ORDERED: Barium Sulfate Susp 0.1% w/v, 0.1% w/w 450 mL Bottle PO ONE (13:47)
[2018-08-16] MEDS: Albuterol-Ipratrop 3 mg / 0.5 (3 ml) UD INH SCH ×4 (01:01→19:26)
[2018-08-16] MEDS: Proshield Plus GEL TOP SCH ×3 (01:37→17:42)
[2018-08-16 05:47] LABS: HEMOGLOBIN 9.3 g/dL (12.0-16.0); MEAN CELL VOLUME 81.1 fl (81.0-99.0); MEAN CORPUSCULAR HGB CONC 32.1 g/dL (33.0-37.0); RBC 3.56 Mil/uL (3.80-5.20); RED CELL DISTRIBUTION WIDTH 27.5 % (11.5-14.5); WHITE BLOOD COUNT 9.1 K/uL (4.8-10.8)
[2018-08-16 07:01] LABS: BLOOD UREA NITROGEN 16 mg/dl (7-17); CALCIUM 8.1 mg/dL (8.4-10.2); GFR NON-AFRICAN AMERICAN > 60
[2018-08-16] MEDS: Insulin Regular 100 units/ml SC SCH ×4 (07:04→22:25)
[2018-08-16] MEDS ORDERED: Magnesium Sulfate 1 gm in D5W 1 GM/100 ML BAG IVPB ONE (09:15)
[2018-08-16] MEDS: Enoxaparin 40 mg Syringe SC SCH (09:22)
[2018-08-16] MEDS: Potassium Chloride 20 mEq ER Tab PO SCH (09:26)
[2018-08-16] MEDS: Insulin Lispro Mix 75/25 100 units/ml (HumaLog) 10ml SC SCH ×2 (09:27→17:47)
[2018-08-16] MEDS ORDERED: Magnesium Sulfate 2 gm/50 ml 2 GM/50 ML BAG IVPB ONE (09:35)
[2018-08-16] MEDS ORDERED: Potassium CL 10 MEQ/50 ML 50 ML IVPB ONE (11:02)
[2018-08-16] MEDS ORDERED: Potassium Chloride 20 mEq 100 ML IVPB ONE (11:04)
--- NOTE | 2018-08-16 12:00 | CP.PCM.PN ---
Subjective - Date & Time of Evaluation Date of Evaluation: 08/16/18 Time of Evaluation: 11:59 - Subjective Subjective: No new event reported Patient in bed Trying to communicate Leukocytosis trending down and improving Objective - Vital Signs/Intake and Output Vital Signs (last 24 hours): Temp Pulse Resp BP Pulse Ox 98.1 F 65 18 150/78 100 08/16/18 08:00 08/16/18 09:23 08/16/18 08:00 08/16/18 09:23 08/16/18 08:00 Intake and Output: 08/16/18 08/16/18 06:59 18:59 Output Total 600 Balance -600 - Medications Medications: Current Medications Acetaminophen (Tylenol 325mg Tab) 650 mg PO Q6 PRN PRN Reason: Temperature Last Admin: 08/13/18 08:51 Dose: 650 mg Acetaminophen (Tylenol 325mg Tab) 650 mg PO Q6 PRN PRN Reason: Pain <5 Last Admin: 08/15/18 00:22 Dose: 650 mg Albuterol/Ipratropium (Duoneb 3 Mg/0.5 Mg (3 Ml) Ud) 3 ml INH RQ6 [facility] Last Admin: 08/16/18 08:03 Dose: 3 ml Dimethicone (Proshield Plus Skin Protectant) 1 applic TOP Q8 [facility] Last Admin: 08/16/18 09:21 Dose: 1 applic Enoxaparin Sodium (Lovenox) 40 mg SC DAILY [facility]; Protocol Last Admin: 08/16/18 09:22 Dose: 40 mg Ferrous Sulfate (Feosol) 325 mg PO TID [facility] Last Admin: 08/11/18 11:21 Dose: Not Given Potassium Chloride (Potassium Chloride 20 Meq/100 Ml) 100 mls @ 50 mls/hr IVPB Q2 [facility] Stop: 08/16/18 13:59 Potassium Chloride (Potassium Chloride 20 Meq/100 Ml) 100 mls @ 50 mls/hr IVPB ONCE ONE Stop: 08/16/18 13:03 Insulin Human Regular (Humulin R) 0 units SC ACCU-CHECK [facility]; Protocol Last Admin: 08/16/18 07:04 Dose: 1 u Insulin Lispro Protam/Lispro Human (Humalog Mix 75/25) 5 units SC BID [facility]; Protocol Last Admin: 08/16/18 09:27 Dose: 5 units Ketorolac Tromethamine (Toradol) 30 mg IVP Q6 PRN PRN Reason: Pain 5 or greater Last Admin: 08/15/18 12:34 Dose: 30 mg Levetiracetam (Keppra) 500 mg PO BID [facility] Last Admin: 08/16/18 09:25 Dose: 500 mg Magnesium Oxide (Mag-Ox) 400 mg PO BID [facility] Metoprolol Tartrate (Lopressor) 50 mg PO Q12 [facility] Last Admin: 08/16/18 09:23 Dose: 50 mg Ondansetron HCl (Zofran Inj) 4 mg IVP Q6 PRN PRN Reason: Nausea/Vomiting Last Admin: 08/08/18 01:04 Dose: 4 mg Potassium Chloride (K-Dur 20 Meq Er Tab) 20 meq PO DAILY [facility] Last Admin: 08/16/18 09:26 Dose: 20 meq - Labs Labs: 08/16/18 05:00 08/16/18 05:00 PT 16.2 Seconds (9.8-13.1) H 08/04/18 10:28 INR 1.4 08/04/18 10:28 APTT 35.6 Seconds (25.6-37.1) 08/04/18 10:28 - Constitutional Appears: No Acute Distress - Eye Exam Eye Exam: Conjunctival injection - ENT Exam ENT Exam: Mucous Membranes Moist - Neck Exam Neck Exam: absent: Lymphadenopathy - Respiratory Exam Respiratory Exam: NORMAL BREATHING PATTERN - Cardiovascular Exam Cardiovascular Exam: absent: Gallop, JVD, Rubs - GI/Abdominal Exam GI & Abdominal Exam: Soft, Normal Bowel Sounds - Extremities Exam Extremities Exam: absent: Calf Tenderness - Back Exam Back Exam: absent: CVA tenderness (L), CVA tenderness (R) - Neurological Exam Neurological Exam: Awake Assessment and Plan (1) JORGE A (acute kidney injury) Assessment & Plan: Respiratory failure/ patient extubated Acute renal failure/acute kidney injury related to multifactorial including sepsis. Diabetes mellitus and history of hypertension history of CVA. encephalopathy patient improving mental status much better and more awake hyperurecemia corrected , Hyperphosphatemia corrected Shock liver improving liver function test Nephrotic syndrome proteinuria with 7 gram proteinuria based on protein to creatinine ratio Hypokalemia. Given potassium chloride Hypomagnesemia Hypernatremia corrected Recommendation Persistent hypokalemia because of the hypomagnesemia and persistent hypomagnesemia because of the rectal tube and rectal losses of magnesium and potassium Patient need intravenous magnesium 2 g stat and oral at the same time Patient need intravenous potassium chloride supplement 20 mEq x3 doses total of 60 and repeat magnesium and potassium tomorrow she may need additional 2 g of magnesium by tomorrow as well Status: Acute (2) Elevated liver enzymes Status: Acute (3) Elevated troponin level Status: Acute (4) Leukocytosis Status: Acute (5) Sepsis Status: Acute
--- NOTE | 2018-08-16 13:50 | CP.PCM.PN ---
Subjective - Date & Time of Evaluation Date of Evaluation: 08/16/18 Time of Evaluation: 09:00 - Subjective Subjective: iv rx in progress antibiotics on hold c diff negative- c/o abd pain consider GI eval - ? ischemic etiology Objective - Vital Signs/Intake and Output Vital Signs (last 24 hours): Temp Pulse Resp BP Pulse Ox 98.5 F 57 L 18 143/78 100 08/16/18 12:00 08/16/18 13:00 08/16/18 12:00 08/16/18 12:00 08/16/18 12:00 Intake and Output: 08/16/18 08/16/18 06:59 18:59 Output Total 600 Balance -600 - Medications Medications: Current Medications Acetaminophen (Tylenol 325mg Tab) 650 mg PO Q6 PRN PRN Reason: Temperature Last Admin: 08/13/18 08:51 Dose: 650 mg Acetaminophen (Tylenol 325mg Tab) 650 mg PO Q6 PRN PRN Reason: Pain <5 Last Admin: 08/15/18 00:22 Dose: 650 mg Albuterol/Ipratropium (Duoneb 3 Mg/0.5 Mg (3 Ml) Ud) 3 ml INH RQ6 [facility] Last Admin: 08/16/18 13:22 Dose: Not Given Dimethicone (Proshield Plus Skin Protectant) 1 applic TOP Q8 [facility] Last Admin: 08/16/18 09:21 Dose: 1 applic Enoxaparin Sodium (Lovenox) 40 mg SC DAILY [facility]; Protocol Last Admin: 08/16/18 09:22 Dose: 40 mg Ferrous Sulfate (Feosol) 325 mg PO TID [facility] Last Admin: 08/11/18 11:21 Dose: Not Given Potassium Chloride (Potassium Chloride 20 Meq/100 Ml) 100 mls @ 50 mls/hr IVPB Q2 [facility] Stop: 08/16/18 13:59 Insulin Human Regular (Humulin R) 0 units SC ACCU-CHECK [facility]; Protocol Last Admin: 08/16/18 12:10 Dose: Not Given Insulin Lispro Protam/Lispro Human (Humalog Mix 75/25) 5 units SC BID [facility]; Protocol Last Admin: 08/16/18 09:27 Dose: 5 units Ketorolac Tromethamine (Toradol) 30 mg IVP Q6 PRN PRN Reason: Pain 5 or greater Last Admin: 08/15/18 12:34 Dose: 30 mg Levetiracetam (Keppra) 500 mg PO BID [facility] Last Admin: 08/16/18 09:25 Dose: 500 mg Magnesium Oxide (Mag-Ox) 400 mg PO BID [facility] Metoprolol Tartrate (Lopressor) 50 mg PO Q12 [facility] Last Admin: 08/16/18 09:23 Dose: 50 mg Ondansetron HCl (Zofran Inj) 4 mg IVP Q6 PRN PRN Reason: Nausea/Vomiting Last Admin: 08/08/18 01:04 Dose: 4 mg Potassium Chloride (K-Dur 20 Meq Er Tab) 20 meq PO DAILY [facility] Last Admin: 08/16/18 09:26 Dose: 20 meq - Labs Labs: 08/16/18 05:00 08/16/18 05:00 PT 16.2 Seconds (9.8-13.1) H 08/04/18 10:28 INR 1.4 08/04/18 10:28 APTT 35.6 Seconds (25.6-37.1) 08/04/18 10:28 - Constitutional Appears: Non-toxic, No Acute Distress - Head Exam Head Exam: ATRAUMATIC, NORMAL INSPECTION, NORMOCEPHALIC - Eye Exam Eye Exam: EOMI, Normal appearance, PERRL Pupil Exam: NORMAL ACCOMODATION, PERRL - ENT Exam ENT Exam: Mucous Membranes Moist, Normal Exam - Neck Exam Neck Exam: Full ROM, Normal Inspection. absent: Lymphadenopathy - Respiratory Exam Respiratory Exam: Clear to Ausculation Bilateral, NORMAL BREATHING PATTERN - Cardiovascular Exam Cardiovascular Exam: REGULAR RHYTHM, +S1, +S2. absent: Murmur - GI/Abdominal Exam GI & Abdominal Exam: Distended, Guarding, Soft, Tenderness, Normal Bowel Sounds - Rectal Exam Rectal Exam: Deferred - Exam Exam: NORMAL INSPECTION - Extremities Exam Extremities Exam: Full ROM, Normal Capillary Refill, Normal Inspection. absent: Joint Swelling, Pedal Edema - Back Exam Back Exam: NORMAL INSPECTION - Neurological Exam Neurological Exam: Alert, Awake, CN II-XII Intact, Oriented x3 Neuro motor strength exam: Right Upper Extremity: 2/1, Right Lower Extremity: 2/1 - Psychiatric Exam Psychiatric exam: Normal Affect, Normal Mood - Skin Skin Exam: Dry, Intact, Normal Color, Warm Assessment and Plan (1) Sepsis Status: Acute (2) Change in mental state Status: Acute (3) History of CVA with residual deficit Status: Acute (4) Diabetes 1.5, managed as type 2 Status: Chronic (5) History of CVA (cerebrovascular accident) Status: Chronic (6) NSTEMI (non-ST elevated myocardial infarction) Status: Acute (7) JORGE A (acute kidney injury) Status: Acute (8) Pansinusitis Status: Acute (9) Pneumonia Status: Acute (10) Nephrotic syndrome Status: Acute - Assessment and Plan (Free Text) Assessment: off antibiotics c diff neg c/o abd pain consider GI eval
[2018-08-16] MEDS: Potassium Chloride 20 mEq 100 ML IVPB SCH ×2 (17:41→21:00)
[2018-08-16] MEDS: Magnesium Oxide 400 mg Tab UD PO SCH (17:42)
[2018-08-16] MEDS: Vancomycin 500 mg (Oral/Rectal USE) PO SCH ×2 (17:43→22:26)
[2018-08-17] MEDS: Proshield Plus GEL TOP SCH ×3 (00:42→16:34)
--- NOTE | 2018-08-17 00:46 | CP.PCM.PN ---
Subjective - Date & Time of Evaluation Date of Evaluation: 08/16/18 Time of Evaluation: 09:45 - Subjective Subjective: HPI: Pt seen and assessed at bedside, reports no new complaints. Labs reviewed from this morning, K+ was 2.6, and magnesium was 1.0. Subjective- Review of Systems: reviewed and no additional remarkable complaints. Objective- -Vital Signs Stable -Appears: Non-toxic, No Acute Distress. -Head Exam: NORMAL INSPECTION, normocephalic. -Eye Exam: Normal appearance, PERRLA, EOMI. -Respiratory Exam: NORMAL BREATHING PATTERN, decreased breath sounds at bases. -Cardiovascular Exam: +S1, +S2 -GI & Abdominal Exam: Soft, non-tender, non-distended. -Neurological Exam: Alert, Awake. -Psychiatric exam: Normal Affect, Normal Mood -Skin Exam: Normal Color, Warm Assessment/Impression/Plan 1.) Encephalopathy: -mental status improving. -still has episodes of mild confusion. -neuro checks 2.) Hypokalemia: -Potassium currently 2.6. -Possibly secondary to diarrhea; pt currently has flexiseal in place, draining dark liquid stool. -Pt will receive 2 runs of 20 mEq IV potassium. -Repeat CMP in the morning. 3.) Hypomagnesemia: -Magnesium currently 1.0. -Pt will receive 2 gram of magnesium sulfate. 4.) Acute Respiratory Failure: -Respiratory status has improved. -Pulmonology consult appreciated. Objective - Vital Signs/Intake and Output Vital Signs (last 24 hours): Temp Pulse Resp BP Pulse Ox 98.7 F 65 20 150/92 H 95 08/17/18 00:24 08/17/18 00:24 08/17/18 00:24 08/17/18 00:24 08/17/18 00:24 - Medications Medications: Current Medications Acetaminophen (Tylenol 325mg Tab) 650 mg PO Q6 PRN PRN Reason: Temperature Last Admin: 08/13/18 08:51 Dose: 650 mg Acetaminophen (Tylenol 325mg Tab) 650 mg PO Q6 PRN PRN Reason: Pain <5 Last Admin: 08/16/18 22:27 Dose: 650 mg Albuterol/Ipratropium (Duoneb 3 Mg/0.5 Mg (3 Ml) Ud) 3 ml INH RQ6 [facility] Last Admin: 08/16/18 19:26 Dose: 3 ml Dimethicone (Proshield Plus Skin Protectant) 1 applic TOP Q8 [facility] Last Admin: 08/17/18 00:42 Dose: 1 applic Enoxaparin Sodium (Lovenox) 40 mg SC DAILY [facility]; Protocol Last Admin: 08/16/18 09:22 Dose: 40 mg Ferrous Sulfate (Feosol) 325 mg PO TID [facility] Last Admin: 08/11/18 11:21 Dose: Not Given Insulin Human Regular (Humulin R) 0 units SC ACCU-CHECK [facility]; Protocol Last Admin: 08/16/18 22:25 Dose: Not Given Insulin Lispro Protam/Lispro Human (Humalog Mix 75/25) 5 units SC BID [facility]; Prot ocol Last Admin: 08/16/18 17:47 Dose: 5 units Ketorolac Tromethamine (Toradol) 30 mg IVP Q6 PRN PRN Reason: Pain 5 or greater Last Admin: 08/16/18 14:33 Dose: 30 mg Levetiracetam (Keppra) 500 mg PO BID [facility] Last Admin: 08/16/18 17:47 Dose: 500 mg Magnesium Oxide (Mag-Ox) 400 mg PO BID [facility] Last Admin: 08/16/18 17:42 Dose: 400 mg Metoprolol Tartrate (Lopressor) 50 mg PO Q12 [facility] Last Admin: 08/16/18 22:25 Dose: Not Given Ondansetron HCl (Zofran Inj) 4 mg IVP Q6 PRN PRN Reason: Nausea/Vomiting Last Admin: 08/08/18 01:04 Dose: 4 mg Potassium Chloride (K-Dur 20 Meq Er Tab) 20 meq PO DAILY [facility] Last Admin: 08/16/18 09:26 Dose: 20 meq Vancomycin HCl (Vancocin (Oral/Rectal Use)) 500 mg PO Q6 [facility]; Protocol Last Admin: 08/16/18 22:26 Dose: 500 mg - Labs Labs: 08/16/18 05:00 08/16/18 05:00 PT 16.2 Seconds (9.8-13.1) H 08/04/18 10:28 INR 1.4 08/04/18 10:28 APTT 35.6 Seconds (25.6-37.1) 08/04/18 10:28 Assessment and Plan (1) Encephalopathy Status: Acute (2) Acute respiratory failure with hypoxia Status: Acute (3) Hypokalemia Status: Acute (4) Hypomagnesemia Status: Acute
[2018-08-17] MEDS: Albuterol-Ipratrop 3 mg / 0.5 (3 ml) UD INH SCH ×4 (01:00→19:11)
[2018-08-17] MEDS: Vancomycin 500 mg (Oral/Rectal USE) PO SCH ×4 (04:26→21:12)
[2018-08-17 06:21] LABS: HEMOGLOBIN 9.9 g/dL (12.0-16.0); MEAN CELL VOLUME 80.8 fl (81.0-99.0); MEAN CORPUSCULAR HEMOGLOBIN 26.6 pg (27.0-31.0); MEAN CORPUSCULAR HGB CONC 32.9 g/dL (33.0-37.0); RBC 3.72 Mil/uL (3.80-5.20); RED CELL DISTRIBUTION WIDTH 27.5 % (11.5-14.5); WHITE BLOOD COUNT 7.6 K/uL (4.8-10.8)
[2018-08-17] MEDS: Insulin Regular 100 units/ml SC SCH ×4 (06:29→22:37)
[2018-08-17 07:00] LABS: ALB/GLOB RATIO 0.8 (1.0-2.1); ALBUMIN 3.4 g/dL (3.5-5.0); ALT/SGPT 65 U/L (9-52); AST/SGOT 46 U/L (14-36); BLOOD UREA NITROGEN 11 mg/dl (7-17); CALCIUM 8.8 mg/dL (8.4-10.2); GFR NON-AFRICAN AMERICAN > 60
[2018-08-17] MEDS ORDERED: Magnesium Sulfate 2 gm/50 ml 2 GM/50 ML BAG IVPB ONE (09:00)
[2018-08-17] MEDS: Potassium Chloride 20 mEq ER Tab PO SCH ×2 (09:16→16:39)
--- NOTE | 2018-08-17 09:16 | CP.PCM.PN ---
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 Objective - Vital Signs/Intake and Output Vital Signs (last 24 hours): Temp Pulse Resp BP Pulse Ox 97.8 F 70 18 131/70 100 08/17/18 08:00 08/17/18 08:00 08/17/18 08:00 08/17/18 08:00 08/17/18 08:00 Intake and Output: 08/17/18 08/17/18 06:59 18:59 Intake Total 720 Balance 720 - Medications Medications: Current Medications Acetaminophen (Tylenol 325mg Tab) 650 mg PO Q6 PRN PRN Reason: Temperature Last Admin: 08/13/18 08:51 Dose: 650 mg Acetaminophen (Tylenol 325mg Tab) 650 mg PO Q6 PRN PRN Reason: Pain <5 Last Admin: 08/16/18 22:27 Dose: 650 mg Albuterol/Ipratropium (Duoneb 3 Mg/0.5 Mg (3 Ml) Ud) 3 ml INH RQ6 [facility] Last Admin: 08/17/18 07:34 Dose: Not Given Dimethicone (Proshield Plus Skin Protectant) 1 applic TOP Q8 [facility] Last Admin: 08/17/18 00:42 Dose: 1 applic Enoxaparin Sodium (Lovenox) 40 mg SC DAILY [facility]; Protocol Last Admin: 08/16/18 09:22 Dose: 40 mg Ferrous Sulfate (Feosol) 325 mg PO TID [facility] Last Admin: 08/11/18 11:21 Dose: Not Given Magnesium Sulfate (Magnesium Sulfate 2 Gm/50 Ml Water) 2 gm in 50 mls @ 50 mls/hr IVPB ONCE ONE Stop: 08/17/18 09:59 Insulin Human Regular (Humulin R) 0 units SC ACCU-CHECK [facility]; Protocol Last Admin: 08/17/18 06:29 Dose: 1 u Insulin Lispro Protam/Lispro Human (Humalog Mix 75/25) 5 units SC BID [facility]; Protocol Last Admin: 08/16/18 17:47 Dose: 5 units Ketorolac Tromethamine (Toradol) 30 mg IVP Q6 PRN PRN Reason: Pain 5 or greater Last Admin: 08/17/18 04:26 Dose: 30 mg Levetiracetam (Keppra) 500 mg PO BID [facility] Last Admin: 08/16/18 17:47 Dose: 500 mg Magnesium Oxide (Mag-Ox) 400 mg PO BID [facility] Last Admin: 08/16/18 17:42 Dose: 400 mg Metoprolol Tartrate (Lopressor) 50 mg PO Q12 [facility] Last Admin: 08/16/18 22:25 Dose: Not Given Ondansetron HCl (Zofran Inj) 4 mg IVP Q6 PRN PRN Reason: Nausea/Vomiting Last Admin: 08/08/18 01:04 Dose: 4 mg Potassium Chloride (K-Dur 20 Meq Er Tab) 20 meq PO BID [facility] Vancomycin HCl (Vancocin (Oral/Rectal Use)) 500 mg PO Q6 [facility]; Protocol Last Admin: 08/17/18 04:26 Dose: 500 mg - Labs Labs: 08/17/18 05:45 08/17/18 05:45 PT 16.2 Seconds (9.8-13.1) H 08/04/18 10:28 INR 1.4 08/04/18 10:28 APTT 35.6 Seconds (25.6-37.1) 08/04/18 10:28 - Constitutional Appears: No Acute Distress - Head Exam Head Exam: ATRAUMATIC, NORMAL INSPECTION, NORMOCEPHALIC - Eye Exam Eye Exam: EOMI, Normal appearance, PERRL Pupil Exam: NORMAL ACCOMODATION, PERRL - ENT Exam ENT Exam: Mucous Membranes Moist, Normal Exam - Neck Exam Neck Exam: Full ROM, Normal Inspection. absent: Lymphadenopathy - Respiratory Exam Respiratory Exam: Decreased Breath Sounds, Prolonged Expiratory Phase, NORMAL BREATHING PATTERN - Cardiovascular Exam Cardiovascular Exam: REGULAR RHYTHM, +S1, +S2. absent: Murmur - GI/Abdominal Exam GI & Abdominal Exam: Soft, Normal Bowel Sounds. absent: Tenderness - Rectal Exam Rectal Exam: NORMAL INSPECTION - Extremities Exam Extremities Exam: Full ROM, Normal Capillary Refill, Normal Inspection. absent: Joint Swelling, Pedal Edema - Back Exam Back Exam: NORMAL INSPECTION - Neurological Exam Neurological Exam: Abnormal Gait, Alert, Awake, CN II-XII Intact, Oriented x3 - Psychiatric Exam Psychiatric exam: Normal Affect, Normal Mood - Skin Skin Exam: Dry, Intact, Normal Color, Warm Assessment and Plan - Assessment and Plan (Free Text) Assessment: SEPSIS RESP FAILURE--IMPROVED Plan: CONTINUE BCURRENT RX PT EVAL
[2018-08-17] MEDS: Enoxaparin 40 mg Syringe SC SCH (09:18)
[2018-08-17] MEDS: Magnesium Oxide 400 mg Tab UD PO SCH ×2 (09:18→16:34)
--- NOTE | 2018-08-17 10:31 | CP.PCM.PN ---
Subjective - Date & Time of Evaluation Date of Evaluation: 08/17/18 Time of Evaluation: 10:30 - Subjective Subjective: Patient awake somewhat Not in acute respiratory distress SHe is in bed Vital signs noted Objective - Vital Signs/Intake and Output Vital Signs (last 24 hours): Temp Pulse Resp BP Pulse Ox 97.8 F 70 18 131/70 100 08/17/18 08:00 08/17/18 09:17 08/17/18 08:00 08/17/18 09:17 08/17/18 08:00 Intake and Output: 08/17/18 08/17/18 06:59 18:59 Intake Total 720 Balance 720 - Medications Medications: Current Medications Acetaminophen (Tylenol 325mg Tab) 650 mg PO Q6 PRN PRN Reason: Temperature Last Admin: 08/13/18 08:51 Dose: 650 mg Acetaminophen (Tylenol 325mg Tab) 650 mg PO Q6 PRN PRN Reason: Pain <5 Last Admin: 08/16/18 22:27 Dose: 650 mg Albuterol/Ipratropium (Duoneb 3 Mg/0.5 Mg (3 Ml) Ud) 3 ml INH RQ6 [facility] Last Admin: 08/17/18 07:34 Dose: Not Given Dimethicone (Proshield Plus Skin Protectant) 1 applic TOP Q8 [facility] Last Admin: 08/17/18 09:19 Dose: 1 applic Enoxaparin Sodium (Lovenox) 40 mg SC DAILY [facility]; Protocol Last Admin: 08/17/18 09:18 Dose: 40 mg Ferrous Sulfate (Feosol) 325 mg PO TID [facility] Last Admin: 08/11/18 11:21 Dose: Not Given Insulin Human Regular (Humulin R) 0 units SC ACCU-CHECK [facility]; Protocol Last Admin: 08/17/18 06:29 Dose: 1 u Insulin Lispro Protam/Lispro Human (Humalog Mix 75/25) 5 units SC BID [facility]; Protocol Last Admin: 08/16/18 17:47 Dose: 5 units Ketorolac Tromethamine (Toradol) 30 mg IVP Q6 PRN PRN Reason: Pain 5 or greater Last Admin: 08/17/18 04:26 Dose: 30 mg Levetiracetam (Keppra) 500 mg PO BID [facility] Last Admin: 08/17/18 09:16 Dose: 500 mg Magnesium Oxide (Mag-Ox) 400 mg PO BID [facility] Last Admin: 08/17/18 09:18 Dose: 400 mg Metoprolol Tartrate (Lopressor) 50 mg PO Q12 [facility] Last Admin: 08/17/18 09:17 Dose: 50 mg Ondansetron HCl (Zofran Inj) 4 mg IVP Q6 PRN PRN Reason: Nausea/Vomiting Last Admin: 08/08/18 01:04 Dose: 4 mg Potassium Chloride (K-Dur 20 Meq Er Tab) 20 meq PO BID [facility] Last Admin: 08/17/18 09:16 Dose: 20 meq Vancomycin HCl (Vancocin (Oral/Rectal Use)) 500 mg PO Q6 [facility]; Protocol Last Admin: 08/17/18 09:20 Dose: 500 mg - Labs Labs: 08/17/18 05:45 08/17/18 05:45 PT 16.2 Seconds (9.8-13.1) H 08/04/18 10:28 INR 1.4 08/04/18 10:28 APTT 35.6 Seconds (25.6-37.1) 08/04/18 10:28 - Constitutional Appears: No Acute Distress - Eye Exam Eye Exam: Conjunctival injection - ENT Exam ENT Exam: Mucous Membranes Moist - Neck Exam Neck Exam: absent: Lymphadenopathy - Respiratory Exam Respiratory Exam: NORMAL BREATHING PATTERN. absent: Chest Wall Tenderness - Cardiovascular Exam Cardiovascular Exam: absent: Gallop, Rubs - GI/Abdominal Exam GI & Abdominal Exam: Soft - Extremities Exam Extremities Exam: absent: Calf Tenderness - Back Exam Back Exam: absent: CVA tenderness (L), CVA tenderness (R) - Neurological Exam Neurological Exam: Awake Assessment and Plan (1) JORGE A (acute kidney injury) Assessment & Plan: Status post acute kidney injury recovering Status post intubation Persistent hypomagnesemia and hypokalemia Recommendation Patient need additional 2 g of magnesium intravenously And patient need additional potassium chloride intravenously perhaps 20 mEq x3 runs total of 60 mEq Status: Acute (2) Elevated liver enzymes Status: Acute (3) Elevated troponin level Status: Acute (4) Leukocytosis Status: Acute (5) Sepsis Status: Acute
[2018-08-17] MEDS: Insulin Lispro Mix 75/25 100 units/ml (HumaLog) 10ml SC SCH ×2 (10:54→16:42)
--- NOTE | 2018-08-17 11:31 | RAD ---
Date of service: 08/17/2018 PROCEDURE: CHEST RADIOGRAPH, 1 VIEW HISTORY: eval of effusions COMPARISON: 08/13/2018. FINDINGS: LUNGS: Interval improvement infiltrates particularly right lower lobe. PLEURA: Stable right pleural effusion. CARDIOVASCULAR: No aortic atherosclerotic calcification present. Removal of support apparatus since the prior study: Right IJ venous access catheter. OSSEOUS STRUCTURES: No significant abnormalities. VISUALIZED UPPER ABDOMEN: Normal. OTHER FINDINGS: None. IMPRESSION: Improving infiltrates, likely asymmetrical pulmonary edema/pulmonary vascular congestion.
[2018-08-17] MEDS ORDERED: Barium Sulfate Susp 0.1% w/v, 0.1% w/w 450 mL Bottle PO ONE (13:37)
--- NOTE | 2018-08-17 16:01 | CP.PCM.PN ---
Subjective - Date & Time of Evaluation Date of Evaluation: 08/17/18 Time of Evaluation: 10:00 - Subjective Subjective: patient seen and examined at bedside. no family at bedside Interim events noted available diagnostic data reviewed Review of Systems unable to obtain due to status Objective Vital Signs Stable - Constitutional Appears: Chronically Ill Head Exam: NORMAL INSPECTION Respiratory Exam: CTABL Cardiovascular Exam: +S1, +S2 GI & Abdominal Exam: Soft, mildly tender Neurological Exam: Alert, Awake Skin Exam: Normal Color, Warm Assessment and Plan monitor vitals monitor labs Cont meds Cont tx ID, Cardio, Neuro, Renal, Pulm following consultants appreciated input hypokalemia persists, replace, nephro on board though improving PT rest of plan as ordered Objective - Vital Signs/Intake and Output Vital Signs (last 24 hours): Temp Pulse Resp BP Pulse Ox 98.2 F 55 L 18 155/75 H 99 08/17/18 12:00 08/17/18 12:00 08/17/18 12:00 08/17/18 12:00 08/17/18 12:00 Intake and Output: 08/17/18 08/17/18 06:59 18:59 Intake Total 720 Balance 720 - Medications Medications: Current Medications Acetaminophen (Tylenol 325mg Tab) 650 mg PO Q6 PRN PRN Reason: Temperature Last Admin: 08/13/18 08:51 Dose: 650 mg Acetaminophen (Tylenol 325mg Tab) 650 mg PO Q6 PRN PRN Reason: Pain <5 Last Admin: 08/16/18 22:27 Dose: 650 mg Albuterol/Ipratropium (Duoneb 3 Mg/0.5 Mg (3 Ml) Ud) 3 ml INH RQ6 [facility] Last Admin: 08/17/18 14:06 Dose: Not Given Dimethicone (Proshield Plus Skin Protectant) 1 applic TOP Q8 [facility] Last Admin: 08/17/18 09:19 Dose: 1 applic Ferrous Sulfate (Feosol) 325 mg PO TID [facility] Last Admin: 08/11/18 11:21 Dose: Not Given Insulin Human Regular (Humulin R) 0 units SC ACCU-CHECK [facility]; Protocol Last Admin: 08/17/18 11:17 Dose: Not Given Insulin Lispro Protam/Lispro Human (Humalog Mix 75/25) 5 units SC BID [facility]; Protocol Last Admin: 08/17/18 10:54 Dose: Not Given Ketorolac Tromethamine (Toradol) 30 mg IVP Q6 PRN PRN Reason: Pain 5 or greater Last Admin: 08/17/18 11:19 Dose: 30 mg Levetiracetam (Keppra) 500 mg PO BID [facility] Last Admin: 08/17/18 09:16 Dose: 500 mg Magnesium Oxide (Mag-Ox) 400 mg PO BID [facility] Last Admin: 08/17/18 09:18 Dose: 400 mg Metoprolol Tartrate (Lopressor) 25 mg PO Q12 [facility] Ondansetron HCl (Zofran Inj) 4 mg IVP Q6 PRN PRN Reason: Nausea/Vomiting Last Admin: 08/08/18 01:04 Dose: 4 mg Potassium Chloride (K-Dur 20 Meq Er Tab) 20 meq PO BID [facility] Last Admin: 08/17/18 09:16 Dose: 20 meq Vancomycin HCl (Vancocin (Oral/Rectal Use)) 500 mg PO Q6 [facility]; Protocol Last Admin: 08/17/18 09:20 Dose: 500 mg - Labs Labs: 08/17/18 05:45 08/17/18 05:45 PT 16.2 Seconds (9.8-13.1) H 08/04/18 10:28 INR 1.4 08/04/18 10:28 APTT 35.6 Seconds (25.6-37.1) 08/04/18 10:28 Assessment and Plan (1) Sepsis Status: Acute (2) JORGE A (acute kidney injury) Status: Acute (3) Abdominal pain Status: Acute (4) Hypokalemia Status: Acute (5) Respiratory failure Status: Resolved
--- NOTE | 2018-08-17 16:55 | CP.PCM.PN ---
Subjective - Date & Time of Evaluation Date of Evaluation: 08/15/18 Time of Evaluation: 11:20 - Subjective Subjective: Patient feels a lot better Noted drop of WBC to 10 Afebrile CXR 2 days ago showed persistent CHF chnages. Objective - Vital Signs/Intake and Output Vital Signs (last 24 hours): Temp Pulse Resp BP Pulse Ox 98.3 F 62 16 149/70 100 08/17/18 16:39 08/17/18 16:39 08/17/18 16:39 08/17/18 16:39 08/17/18 16:39 Intake and Output: 08/17/18 08/17/18 06:59 18:59 Intake Total 720 Balance 720 - Medications Medications: Current Medications Acetaminophen (Tylenol 325mg Tab) 650 mg PO Q6 PRN PRN Reason: Temperature Last Admin: 08/13/18 08:51 Dose: 650 mg Acetaminophen (Tylenol 325mg Tab) 650 mg PO Q6 PRN PRN Reason: Pain <5 Last Admin: 08/16/18 22:27 Dose: 650 mg Albuterol/Ipratropium (Duoneb 3 Mg/0.5 Mg (3 Ml) Ud) 3 ml INH RQ6 [facility] Last Admin: 08/17/18 14:06 Dose: Not Given Dimethicone (Proshield Plus Skin Protectant) 1 applic TOP Q8 [facility] Last Admin: 08/17/18 16:34 Dose: 1 applic Ferrous Sulfate (Feosol) 325 mg PO TID [facility] Last Admin: 08/11/18 11:21 Dose: Not Given Insulin Human Regular (Humulin R) 0 units SC ACCU-CHECK [facility]; Protocol Last Admin: 08/17/18 16:36 Dose: Not Given Insulin Lispro Protam/Lispro Human (Humalog Mix 75/25) 5 units SC BID [facility]; Protocol Last Admin: 08/17/18 16:42 Dose: 5 units Ketorolac Tromethamine (Toradol) 30 mg IVP Q6 PRN PRN Reason: Pain 5 or greater Last Admin: 08/17/18 11:19 Dose: 30 mg Levetiracetam (Keppra) 500 mg PO BID [facility] Last Admin: 08/17/18 16:35 Dose: 500 mg Magnesium Oxide (Mag-Ox) 400 mg PO BID [facility] Last Admin: 08/17/18 16:34 Dose: 400 mg Metoprolol Tartrate (Lopressor) 25 mg PO Q12 [facility] Ondansetron HCl (Zofran Inj) 4 mg IVP Q6 PRN PRN Reason: Nausea/Vomiting Last Admin: 08/08/18 01:04 Dose: 4 mg Potassium Chloride (K-Dur 20 Meq Er Tab) 20 meq PO BID [facility] Last Admin: 08/17/18 16:39 Dose: 20 meq Vancomycin HCl (Vancocin (Oral/Rectal Use)) 500 mg PO Q6 [facility]; Protocol Last Admin: 08/17/18 16:33 Dose: 500 mg - Labs Labs: 08/17/18 05:45 08/17/18 05:45 PT 16.2 Seconds (9.8-13.1) H 08/04/18 10:28 INR 1.4 08/04/18 10:28 APTT 35.6 Seconds (25.6-37.1) 08/04/18 10:28 - Head Exam Head Exam: NORMAL INSPECTION - Eye Exam Eye Exam: Normal appearance - ENT Exam ENT Exam: Mucous Membranes Moist - Respiratory Exam Respiratory Exam: Decreased Breath Sounds - Cardiovascular Exam Cardiovascular Exam: REGULAR RHYTHM - GI/Abdominal Exam GI & Abdominal Exam: Normal Bowel Sounds - Neurological Exam Neurological Exam: Awake, Oriented x3 Assessment and Plan (1) JORGE A (acute kidney injury) Status: Acute (2) Acute respiratory failure with hypoxia Status: Acute (3) Aspiration pneumonia Status: Acute (4) Elevated liver enzymes Status: Acute (5) Sepsis Status: Acute (6) Toxic metabolic encephalopathy Status: Acute - Assessment and Plan (Free Text) Plan: Cont meds start phys therapy fluid restriction diuretics ambulation subacute rehab
[2018-08-17] MEDS ORDERED: Potassium Chloride 20 mEq ER Tab PO STA (17:26)
--- NOTE | 2018-08-17 18:04 | US ---
Date of service: 08/17/2018 PROCEDURE: Duplex ultrasound of the carotid and vertebral arteries. HISTORY: r/o lvo; unable to complete CTA or MRA COMPARISON: None available. TECHNIQUE: Grayscale and duplex Doppler evaluation of the cervical carotid and vertebral arteries were performed. The common carotid, carotid bifurcations and cervical ICA and proximal ECA were evaluated. The vertebral arteries were evaluated for gross patency and direction. FINDINGS: RIGHT CAROTID ARTERIES: Common Carotid Artery: Maximal flow velocity of cm/s. Carotid Bifurcation: Normal. Internal Carotid Artery:Normal. Maximal flow velocity of cm/s. External Carotid Artery (proximal branches): Maximal flow velocity of cm/s. ICA/CCA Ratio: LEFT CAROTID ARTERIES: Common Carotid Artery: Maximal flow velocity of cm/s. Carotid Bifurcation: Normal. Internal Carotid Artery:Normal. Maximal flow velocity of cm/s. External Carotid Artery (proximal branches): Maximal flow velocity of cm/s. ICA/CCA Ratio: VERTEBRAL ARTERIES: Right Vertebral Artery: Patent. Antegrade flow. Left Vertebral Artery: Patent. Antegrade flow. OTHER FINDINGS: Atherosclerotic calcification present. IMPRESSION: Right ICA degree of stenosis: Less than 50% Left ICA degree of stenosis: Less than 50% Reference Internal Carotid Artery (ICA) Peak Systolic Velocity (PSV) for above: 1. Less than 50% stenosis less than 125 cm/s peak systolic velocity 2. 50-69% stenosis 125-230cm/s peak systolic velocity 3. Greater than 70% but less than near occlusion greater than 230 cm/s peak systolic velocity
[2018-08-18] MEDS: Proshield Plus GEL TOP SCH ×3 (00:32→16:00)
[2018-08-18] MEDS: Albuterol-Ipratrop 3 mg / 0.5 (3 ml) UD INH SCH ×4 (01:53→20:04)
[2018-08-18] MEDS: Vancomycin 500 mg (Oral/Rectal USE) PO SCH ×4 (04:05→21:28)
[2018-08-18 05:58] LABS: BLOOD UREA NITROGEN 10 mg/dl (7-17); GFR NON-AFRICAN AMERICAN > 60
[2018-08-18] MEDS: Insulin Regular 100 units/ml SC SCH ×4 (07:07→23:21)
[2018-08-18] MEDS ORDERED: Magnesium Sulfate 2 gm/50 ml 2 GM/50 ML BAG IVPB ONE (08:29)
[2018-08-18] MEDS: Magnesium Oxide 400 mg Tab UD PO SCH ×2 (09:07→16:00)
[2018-08-18] MEDS: Potassium Chloride 20 mEq ER Tab PO SCH ×2 (09:09→16:02)
[2018-08-18] MEDS: Insulin Lispro Mix 75/25 100 units/ml (HumaLog) 10ml SC SCH ×2 (09:10→17:10)
--- NOTE | 2018-08-18 10:29 | CP.PCM.PN ---
Subjective - Date & Time of Evaluation Date of Evaluation: 08/18/18 Time of Evaluation: 10:29 - Subjective Subjective: no chest pains/sob Objective - Vital Signs/Intake and Output Vital Signs (last 24 hours): Temp Pulse Resp BP Pulse Ox 98.4 F 60 20 136/72 98 08/18/18 09:46 08/18/18 09:46 08/18/18 09:46 08/18/18 09:46 08/18/18 09:46 - Medications Medications: Current Medications Acetaminophen (Tylenol 325mg Tab) 650 mg PO Q6 PRN PRN Reason: Temperature Last Admin: 08/13/18 08:51 Dose: 650 mg Acetaminophen (Tylenol 325mg Tab) 650 mg PO Q6 PRN PRN Reason: Pain <5 Last Admin: 08/16/18 22:27 Dose: 650 mg Albuterol/Ipratropium (Duoneb 3 Mg/0.5 Mg (3 Ml) Ud) 3 ml INH RQ6 [facility] Last Admin: 08/18/18 07:32 Dose: 3 ml Dimethicone (Proshield Plus Skin Protectant) 1 applic TOP Q8 [facility] Last Admin: 08/18/18 09:07 Dose: Not Given Ferrous Sulfate (Feosol) 325 mg PO TID [facility] Last Admin: 08/11/18 11:21 Dose: Not Given Insulin Human Regular (Humulin R) 0 units SC ACCU-CHECK [facility]; Protocol Insulin Lispro Protam/Lispro Human (Humalog Mix 75/25) 5 units SC BID [facility]; Protocol Last Admin: 08/18/18 09:10 Dose: 5 units Ketorolac Tromethamine (Toradol) 30 mg IVP Q6 PRN PRN Reason: Pain 5 or greater Last Admin: 08/18/18 06:08 Dose: 30 mg Levetiracetam (Keppra) 500 mg PO BID [facility] Last Admin: 08/18/18 09:09 Dose: 500 mg Magnesium Oxide (Mag-Ox) 400 mg PO BID [facility] Last Admin: 08/18/18 09:07 Dose: 400 mg Metoprolol Tartrate (Lopressor) 25 mg PO Q12 [facility] Last Admin: 08/18/18 09:08 Dose: 25 mg Ondansetron HCl (Zofran Inj) 4 mg IVP Q6 PRN PRN Reason: Nausea/Vomiting Last Admin: 08/08/18 01:04 Dose: 4 mg Potassium Chloride (K-Dur 20 Meq Er Tab) 20 meq PO BID [facility] Last Admin: 08/18/18 09:09 Dose: 20 meq Vancomycin HCl (Vancocin (Oral/Rectal Use)) 500 mg PO Q6 [facility]; Protocol Last Admin: 08/18/18 09:05 Dose: 500 mg - Labs Labs: 08/17/18 05:45 08/18/18 04:55 PT 16.2 Seconds (9.8-13.1) H 08/04/18 10:28 INR 1.4 08/04/18 10:28 APTT 35.6 Seconds (25.6-37.1) 08/04/18 10:28 - Constitutional Appears: No Acute Distress, Chronically Ill - Head Exam Head Exam: ATRAUMATIC, NORMAL INSPECTION, NORMOCEPHALIC - Eye Exam Eye Exam: EOMI, Normal appearance, PERRL Pupil Exam: NORMAL ACCOMODATION, PERRL - ENT Exam ENT Exam: Mucous Membranes Moist, Normal Exam - Neck Exam Neck Exam: Full ROM, Normal Inspection. absent: Lymphadenopathy - Respiratory Exam Respiratory Exam: Clear to Ausculation Bilateral, NORMAL BREATHING PATTERN - Cardiovascular Exam Cardiovascular Exam: REGULAR RHYTHM, +S1, +S2. absent: Murmur - GI/Abdominal Exam GI & Abdominal Exam: Soft, Normal Bowel Sounds. absent: Tenderness - Rectal Exam Rectal Exam: NORMAL INSPECTION - Extremities Exam Extremities Exam: Full ROM, Normal Capillary Refill, Normal Inspection. absent: Joint Swelling, Pedal Edema - Back Exam Back Exam: NORMAL INSPECTION - Neurological Exam Neurological Exam: Alert, Awake, CN II-XII Intact, Oriented x3 - Psychiatric Exam Psychiatric exam: Normal Affect, Normal Mood - Skin Skin Exam: Dry, Intact, Normal Color, Warm Assessment and Plan - Assessment and Plan (Free Text) Assessment: respiratory failure improved Plan: continue present rx
[2018-08-18] MEDS ORDERED: Alum-Mag Hydrox-Simethicone Susp (30 mL) PO PRN (12:02)
--- NOTE | 2018-08-18 13:04 | RAD ---
Date of service: 08/17/2018 PROCEDURE: Modified barium swallow study. HISTORY: dysphagia COMPARISON: None available. TECHNIQUE: Under fluoroscopic guidance, the patient ingested various consistencies of barium. Examination was performed in conjunction with speech pathology department. FINDINGS: There was mild delay in the oral phase. No deep laryngeal penetration or aspiration was observed during this study. The total fluoroscopic time was 99 seconds. IMPRESSION: No deep laryngeal penetration or aspiration observed. Please refer to the detailed report and recommendations of the speech pathologist.
--- NOTE | 2018-08-18 13:27 | CP.PCM.PN ---
Subjective - Date & Time of Evaluation Date of Evaluation: 08/18/18 Time of Evaluation: 09:25 - Subjective Subjective: Patient appears to be more awake and she is trying to eat and having Breakfast by herself. Vital signs noted to be stable. Objective - Vital Signs/Intake and Output Vital Signs (last 24 hours): Temp Pulse Resp BP Pulse Ox 98.4 F 78 18 161/79 H 98 08/18/18 13:00 08/18/18 13:03 08/18/18 13:00 08/18/18 13:00 08/18/18 13:03 - Medications Medications: Current Medications Acetaminophen (Tylenol 325mg Tab) 650 mg PO Q6 PRN PRN Reason: Temperature Last Admin: 08/13/18 08:51 Dose: 650 mg Acetaminophen (Tylenol 325mg Tab) 650 mg PO Q6 PRN PRN Reason: Pain <5 Last Admin: 08/16/18 22:27 Dose: 650 mg Al Hydrox/Mg Hydrox/Simethicone (Maalox Plus 30 Ml) 30 ml PO Q6 PRN PRN Reason: Indigestion / Heartburn Albuterol/Ipratropium (Duoneb 3 Mg/0.5 Mg (3 Ml) Ud) 3 ml INH RQ6 [facility] Last Admin: 08/18/18 13:00 Dose: Not Given Dimethicone (Proshield Plus Skin Protectant) 1 applic TOP Q8 [facility] Last Admin: 08/18/18 09:07 Dose: Not Given Ferrous Sulfate (Feosol) 325 mg PO TID [facility] Last Admin: 08/11/18 11:21 Dose: Not Given Insulin Human Regular (Humulin R) 0 units SC ACCU-CHECK [facility]; Protocol Last Admin: 08/18/18 12:22 Dose: Not Given Insulin Lispro Protam/Lispro Human (Humalog Mix 75/25) 5 units SC BID [facility]; Protocol Last Admin: 08/18/18 09:10 Dose: 5 units Ketorolac Tromethamine (Toradol) 30 mg IVP Q6 PRN PRN Reason: Pain 5 or greater Last Admin: 08/18/18 06:08 Dose: 30 mg Levetiracetam (Keppra) 500 mg PO BID [facility] Last Admin: 08/18/18 09:09 Dose: 500 mg Magnesium Oxide (Mag-Ox) 400 mg PO BID [facility] Last Admin: 08/18/18 09:07 Dose: 400 mg Metoprolol Tartrate (Lopressor) 25 mg PO Q12 [facility] Last Admin: 08/18/18 09:08 Dose: 25 mg Ondansetron HCl (Zofran Inj) 4 mg IVP Q6 PRN PRN Reason: Nausea/Vomiting Last Admin: 08/08/18 01:04 Dose: 4 mg Potassium Chloride (K-Dur 20 Meq Er Tab) 20 meq PO BID [facility] Last Admin: 08/18/18 09:09 Dose: 20 meq Vancomycin HCl (Vancocin (Oral/Rectal Use)) 500 mg PO Q6 [facility]; Protocol Last Admin: 08/18/18 09:05 Dose: 500 mg - Labs Labs: 08/17/18 05:45 08/18/18 04:55 PT 16.2 Seconds (9.8-13.1) H 08/04/18 10:28 INR 1.4 08/04/18 10:28 APTT 35.6 Seconds (25.6-37.1) 08/04/18 10:28 - Constitutional Appears: No Acute Distress - Eye Exam Eye Exam: Conjunctival injection - ENT Exam ENT Exam: Mucous Membranes Moist - Neck Exam Neck Exam: absent: Lymphadenopathy - GI/Abdominal Exam GI & Abdominal Exam: Soft, Normal Bowel Sounds - Extremities Exam Extremities Exam: absent: Calf Tenderness - Back Exam Back Exam: absent: CVA tenderness (L), CVA tenderness (R) - Neurological Exam Neurological Exam: Altered, Awake - Skin Skin Exam: absent: Cyanosis Assessment and Plan (1) JORGE A (acute kidney injury) Assessment & Plan: Respiratory failure/ patient extubated Acute renal failure/acute kidney injury related to multifactorial including sepsis. recovered Diabetes mellitus and history of hypertension history of CVA. encephalopathy patient improving mental status much better and more awake hyperurecemia corrected , Hyperphosphatemia corrected S/P Shock liver improving liver function test Nephrotic syndrome proteinuria with 7 gram proteinuria based on protein to creatinine ratio Hypokalemia. Given potassium chloride Hypomagnesemia Hypernatremia corrected Plan Hypokalemia corrected this morning although patient continued to need potassium supplement Hypomagnesemia improving patient continued to need magnesium may be 1 g intravenously today And as per primary team with the rest of the management. Status: Acute (2) Elevated liver enzymes Status: Acute (3) Elevated troponin level Status: Acute (4) Leukocytosis Status: Acute (5) Sepsis Status: Acute
--- NOTE | 2018-08-18 14:06 | CP.PCM.PN ---
Subjective - Date & Time of Evaluation Date of Evaluation: 08/18/18 Time of Evaluation: 08:00 - Subjective Subjective: awake alert feeding herself lunch with some difficulty denies fever or diarrhea abd pain less no cough Objective - Vital Signs/Intake and Output Vital Signs (last 24 hours): Temp Pulse Resp BP Pulse Ox 98.4 F 78 18 161/79 H 98 08/18/18 13:00 08/18/18 13:03 08/18/18 13:00 08/18/18 13:00 08/18/18 13:03 - Medications Medications: Current Medications Acetaminophen (Tylenol 325mg Tab) 650 mg PO Q6 PRN PRN Reason: Temperature Last Admin: 08/13/18 08:51 Dose: 650 mg Acetaminophen (Tylenol 325mg Tab) 650 mg PO Q6 PRN PRN Reason: Pain <5 Last Admin: 08/16/18 22:27 Dose: 650 mg Al Hydrox/Mg Hydrox/Simethicone (Maalox Plus 30 Ml) 30 ml PO Q6 PRN PRN Reason: Indigestion / Heartburn Albuterol/Ipratropium (Duoneb 3 Mg/0.5 Mg (3 Ml) Ud) 3 ml INH RQ6 [facility] Last Admin: 08/18/18 13:00 Dose: Not Given Dimethicone (Proshield Plus Skin Protectant) 1 applic TOP Q8 [facility] Last Admin: 08/18/18 09:07 Dose: Not Given Ferrous Sulfate (Feosol) 325 mg PO TID [facility] Last Admin: 08/11/18 11:21 Dose: Not Given Insulin Human Regular (Humulin R) 0 units SC ACCU-CHECK [facility]; Protocol Last Admin: 08/18/18 12:22 Dose: Not Given Insulin Lispro Protam/Lispro Human (Humalog Mix 75/25) 5 units SC BID [facility]; Protocol Last Admin: 08/18/18 09:10 Dose: 5 units Ketorolac Tromethamine (Toradol) 30 mg IVP Q6 PRN PRN Reason: Pain 5 or greater Last Admin: 08/18/18 06:08 Dose: 30 mg Levetiracetam (Keppra) 500 mg PO BID [facility] Last Admin: 08/18/18 09:09 Dose: 500 mg Magnesium Oxide (Mag-Ox) 400 mg PO BID [facility] Last Admin: 08/18/18 09:07 Dose: 400 mg Metoprolol Tartrate (Lopressor) 25 mg PO Q12 [facility] Last Admin: 08/18/18 09:08 Dose: 25 mg Ondansetron HCl (Zofran Inj) 4 mg IVP Q6 PRN PRN Reason: Nausea/Vomiting Last Admin: 08/08/18 01:04 Dose: 4 mg Potassium Chloride (K-Dur 20 Meq Er Tab) 20 meq PO BID [facility] Last Admin: 08/18/18 09:09 Dose: 20 meq Vancomycin HCl (Vancocin (Oral/Rectal Use)) 500 mg PO Q6 [facility]; Protocol Last Admin: 08/18/18 09:05 Dose: 500 mg - Labs Labs: 08/17/18 05:45 08/18/18 04:55 PT 16.2 Seconds (9.8-13.1) H 08/04/18 10:28 INR 1.4 08/04/18 10:28 APTT 35.6 Seconds (25.6-37.1) 08/04/18 10:28 - Constitutional Appears: Non-toxic, Chronically Ill - Head Exam Head Exam: NORMOCEPHALIC - Eye Exam Eye Exam: absent: Scleral icterus - ENT Exam ENT Exam: Mucous Membranes Dry - Neck Exam Neck Exam: absent: Lymphadenopathy - Respiratory Exam Respiratory Exam: Decreased Breath Sounds - Cardiovascular Exam Cardiovascular Exam: REGULAR RHYTHM - GI/Abdominal Exam GI & Abdominal Exam: Distended - Rectal Exam Rectal Exam: Deferred - Exam Exam: NORMAL INSPECTION - Extremities Exam Extremities Exam: absent: Pedal Edema - Back Exam Back Exam: absent: CVA tenderness (L), CVA tenderness (R) - Neurological Exam Neurological Exam: Alert, Awake Neuro motor strength exam: Left Upper Extremity: 0, Right Upper Extremity: 4, Left Lower Extremity: 0, Right Lower Extremity: 4 - Psychiatric Exam Psychiatric exam: Depressed - Skin Skin Exam: Dry Assessment and Plan (1) Sepsis Status: Acute (2) Change in mental state Status: Acute (3) History of CVA with residual deficit Status: Acute (4) Diabetes 1.5, managed as type 2 Status: Chronic (5) History of CVA (cerebrovascular accident) Status: Chronic (6) NSTEMI (non-ST elevated myocardial infarction) Status: Acute (7) JORGE A (acute kidney injury) Status: Acute (8) Pansinusitis Status: Acute (9) Pneumonia Status: Acute (10) Nephrotic syndrome Status: Acute - Assessment and Plan (Free Text) Assessment: cont rx as ordered may benefit from [facility]
[2018-08-18] MEDS ORDERED: Dextrose 50% SYRINGE Inj (50 ml) IVP ONE (21:12)
--- NOTE | 2018-08-18 21:58 | CP.PCM.PN ---
Subjective - Date & Time of Evaluation Date of Evaluation: 08/18/18 Time of Evaluation: 10:40 - Subjective Subjective: Patient is doing better Had not had any PT due to low potassium Noted hyperglycemia No fever WBC is now normal. CXR showed improved infiltrate with persistent congestion. Hgb a1c on 08/09 was 6.2 Objective - Vital Signs/Intake and Output Vital Signs (last 24 hours): Temp Pulse Resp BP Pulse Ox 98.1 F 55 L 20 146/79 100 08/18/18 20:07 08/18/18 21:34 08/18/18 20:07 08/18/18 21:34 08/18/18 20:07 - Medications Medications: Current Medications Acetaminophen (Tylenol 325mg Tab) 650 mg PO Q6 PRN PRN Reason: Temperature Last Admin: 08/13/18 08:51 Dose: 650 mg Acetaminophen (Tylenol 325mg Tab) 650 mg PO Q6 PRN PRN Reason: Pain <5 Last Admin: 08/18/18 15:59 Dose: 650 mg Al Hydrox/Mg Hydrox/Simethicone (Maalox Plus 30 Ml) 30 ml PO Q6 PRN PRN Reason: Indigestion / Heartburn Albuterol/Ipratropium (Duoneb 3 Mg/0.5 Mg (3 Ml) Ud) 3 ml INH RQ6 [facility] Last Admin: 08/18/18 20:04 Dose: Not Given Dimethicone (Proshield Plus Skin Protectant) 1 applic TOP Q8 [facility] Last Admin: 08/18/18 16:00 Dose: 1 applic Ferrous Sulfate (Feosol) 325 mg PO TID [facility] Last Admin: 08/11/18 11:21 Dose: Not Given Insulin Human Regular (Humulin R) 0 units SC ACCU-CHECK [facility]; Protocol Levetiracetam (Keppra) 500 mg PO BID [facility] Last Admin: 08/18/18 16:01 Dose: 500 mg Magnesium Oxide (Mag-Ox) 400 mg PO BID [facility] Last Admin: 08/18/18 16:00 Dose: 400 mg Metoprolol Tartrate (Lopressor) 25 mg PO Q12 [facility] Last Admin: 08/18/18 21:34 Dose: Not Given Ondansetron HCl (Zofran Inj) 4 mg IVP Q6 PRN PRN Reason: Nausea/Vomiting Last Admin: 08/08/18 01:04 Dose: 4 mg Potassium Chloride (K-Dur 20 Meq Er Tab) 20 meq PO BID [facility] Last Admin: 08/18/18 16:02 Dose: 20 meq Vancomycin HCl (Vancocin (Oral/Rectal Use)) 500 mg PO Q6 [facility]; Protocol Last Admin: 08/18/18 21:28 Dose: 500 mg - Labs Labs: 08/17/18 05:45 08/18/18 04:55 PT 16.2 Seconds (9.8-13.1) H 08/04/18 10:28 INR 1.4 08/04/18 10:28 APTT 35.6 Seconds (25.6-37.1) 08/04/18 10:28 - Head Exam Head Exam: NORMAL INSPECTION - Eye Exam Eye Exam: Normal appearance - ENT Exam ENT Exam: Mucous Membranes Moist - Respiratory Exam Respiratory Exam: Decreased Breath Sounds - Cardiovascular Exam Cardiovascular Exam: REGULAR RHYTHM - GI/Abdominal Exam GI & Abdominal Exam: Normal Bowel Sounds - Neurological Exam Neurological Exam: Awake Assessment and Plan (1) JORGE A (acute kidney injury) Status: Acute (2) Acute respiratory failure with hypoxia Status: Acute (3) Aspiration pneumonia Status: Acute (4) Elevated liver enzymes Status: Acute (5) Sepsis Status: Acute (6) Toxic metabolic encephalopathy Status: Acute (7) Pulmonary congestion Status: Acute (8) Diabetes mellitus type 2 in obese Status: Acute - Assessment and Plan (Free Text) Plan: start metformin and januva accucheck DC insulin 75.25 check probnp ECHO contoinue accucheck
[2018-08-19] MEDS: Proshield Plus GEL TOP SCH ×3 (01:00→17:21)
[2018-08-19] MEDS: Albuterol-Ipratrop 3 mg / 0.5 (3 ml) UD INH SCH ×4 (02:40→19:17)
[2018-08-19] MEDS: Vancomycin 500 mg (Oral/Rectal USE) PO SCH ×4 (05:00→21:21)
[2018-08-19] MEDS: Insulin Regular 100 units/ml SC SCH ×3 (06:34→17:09)
[2018-08-19 07:52] LABS: HEMOGLOBIN 9.3 g/dL (12.0-16.0); MEAN CELL VOLUME 81.8 fl (81.0-99.0); MEAN CORPUSCULAR HEMOGLOBIN 26.2 pg (27.0-31.0); MEAN CORPUSCULAR HGB CONC 32.1 g/dL (33.0-37.0); RBC 3.53 Mil/uL (3.80-5.20); RED CELL DISTRIBUTION WIDTH 26.7 % (11.5-14.5); WHITE BLOOD COUNT 6.4 K/uL (4.8-10.8)
[2018-08-19 08:18] LABS: B-TYPE NATRIURETIC PEPTIDE 1520 pg/ml (0-900)
[2018-08-19 08:21] LABS: ALB/GLOB RATIO 0.8 (1.0-2.1); ALBUMIN 3.3 g/dL (3.5-5.0); ALT/SGPT 57 U/L (9-52); AST/SGOT 41 U/L (14-36); BLOOD UREA NITROGEN 8 mg/dl (7-17); GFR NON-AFRICAN AMERICAN > 60
[2018-08-19] MEDS: Magnesium Oxide 400 mg Tab UD PO SCH ×2 (09:09→21:20)
[2018-08-19] MEDS: Potassium Chloride 20 mEq ER Tab PO SCH ×2 (09:09→17:20)
[2018-08-19] MEDS ORDERED: Magnesium Sulfate 2 gm/50 ml 2 GM/50 ML BAG IVPB ONE (10:04)
--- NOTE | 2018-08-19 16:10 | CP.PCM.PN ---
Subjective - Date & Time of Evaluation Date of Evaluation: 08/19/18 Time of Evaluation: 16:07 - Subjective Subjective: Nephrology Consultation Note Assessment: stable Acute renal failure/acute kidney injury related to multifactorial including sepsis required dialysis: RESOLVED Diabetes mellitus and history of hypertension history of CVA. 7 gram proteinuria on dipstick Hypokalemia, Hypomagnesemia Plan Hypertension control with meds as ordered. Maintain hemodynamics stable. Avoid hypotension. Patient not on ACEI/ARB due to recent JORGE A. will add if proteinuria persistent. Monitor Input/Output, daily weights and renal function with basic metabolic p ayaz supplement lytes as needed repeat UA, urine pr/cr and alb/cr Dose meds/antibiotics for GFR >60 Glycemic control Further work up for as per primary team Thanks for allowing me to participate in care of your patient. Will follow patient with you. Please call if any Qs. Dr Scott Sherman Office: [phone] Subjective: Noted events overnight. Patients feels better. no urine complaints. SOB better Physical Examination: General Appearance: comfortable no acute distress Vitals reviewed and noted as below Head; Atraumatic, normocephalic Neck; supple no lymphadenopathy, no thyromegaly or bruit Lungs: Normal respiratory rate/effort. Breath sounds bilateral reduced at bases Heart: Normal rate. s1s2 normal. No rub or gallop. Extremities: no edema. No varicose veins Neurological: Patient is awake alert follow commands. Rt hand contractures Skin: Warm and dry. Normal turgor. No rash. Palpitation: Normal elasticity for age Abdomen: Abdomen is soft. Bowel sounds +. There is no abdominal tenderness, no guarding/rigidity no organomegaly Psych: limite dinsight. normal affect MSK: no joint tenderness or swelling. Digits and nails normal, no deformity : kidney or bladder not palpable Labs/imaging reviewed. Past medical history, past surgical history, family history, social history, allergy reviewed and noted as below Family hx: no hx of CKD. Rest non-contributory Objective - Vital Signs/Intake and Output Vital Signs (last 24 hours): Temp Pulse Resp BP Pulse Ox 98.4 F 51 L 18 156/81 H 98 08/19/18 13:00 08/19/18 13:00 08/19/18 13:00 08/19/18 13:00 08/19/18 13:00 Intake and Output: 08/19/18 08/19/18 06:59 18:59 Intake Total 20 Balance 20 - Medications Medications: Current Medications Acetaminophen (Tylenol 325mg Tab) 650 mg PO Q6 PRN PRN Reason: Temperature Last Admin: 08/13/18 08:51 Dose: 650 mg Acetaminophen (Tylenol 325mg Tab) 650 mg PO Q6 PRN PRN Reason: Pain <5 Last Admin: 08/19/18 05:36 Dose: 650 mg Al Hydrox/Mg Hydrox/Simethicone (Maalox Plus 30 Ml) 30 ml PO Q6 PRN PRN Reason: Indigestion / Heartburn Albuterol/Ipratropium (Duoneb 3 Mg/0.5 Mg (3 Ml) Ud) 3 ml INH RQ6 [facility] Last Admin: 08/19/18 13:06 Dose: Not Given Dimethicone (Proshield Plus Skin Protectant) 1 applic TOP Q8 [facility] Last Admin: 08/19/18 09:12 Dose: 1 applic Ferrous Sulfate (Feosol) 325 mg PO TID [facility] Last Admin: 08/11/18 11:21 Dose: Not Given Furosemide (Lasix) 20 mg PO DAILY [facility] Last Admin: 08/19/18 09:10 Dose: 20 mg Insulin Human Regular (Humulin R) 0 units SC ACCU-CHECK [facility]; Protocol Last Admin: 08/19/18 13:31 Dose: 2 u Levetiracetam (Keppra) 500 mg PO BID [facility] Last Admin: 08/19/18 09:00 Dose: 500 mg Magnesium Oxide (Mag-Ox) 400 mg PO BID [facility] Last Admin: 08/19/18 09:09 Dose: 400 mg Metformin HCl (Glucophage) 1,000 mg PO BIDWM [facility] Last Admin: 08/19/18 09:13 Dose: 1,000 mg Metoprolol Tartrate (Lopressor) 25 mg PO Q12 [facility] Last Admin: 08/19/18 09:11 Dose: 25 mg Ondansetron HCl (Zofran Inj) 4 mg IVP Q6 PRN PRN Reason: Nausea/Vomiting Last Admin: 08/08/18 01:04 Dose: 4 mg Potassium Chloride (K-Dur 20 Meq Er Tab) 20 meq PO BID [facility] Last Admin: 08/19/18 09:09 Dose: 20 meq Sitagliptin Phosphate (Januvia) 100 mg PO DAILY [facility] Last Admin: 08/19/18 09:08 Dose: 100 mg Vancomycin HCl (Vancocin (Oral/Rectal Use)) 500 mg PO Q6 [facility]; Protocol Last Admin: 08/19/18 09:21 Dose: 500 mg - Labs Labs: 08/19/18 05:30 08/19/18 05:30 PT 16.2 Seconds (9.8-13.1) H 08/04/18 10:28 INR 1.4 08/04/18 10:28 APTT 35.6 Seconds (25.6-37.1) 08/04/18 10:28
[2018-08-20] MEDS: Insulin Regular 100 units/ml SC SCH ×5 (00:44→23:21)
[2018-08-20] MEDS: Proshield Plus GEL TOP SCH ×3 (00:49→18:53)
[2018-08-20] MEDS: Albuterol-Ipratrop 3 mg / 0.5 (3 ml) UD INH SCH ×4 (02:50→19:56)
[2018-08-20] MEDS: Vancomycin 500 mg (Oral/Rectal USE) PO SCH ×4 (04:38→21:40)
[2018-08-20] MEDS: Potassium Chloride 20 mEq ER Tab PO SCH ×2 (09:28→17:51)
[2018-08-20] MEDS: Magnesium Oxide 400 mg Tab UD PO SCH ×3 (09:28→18:05)
--- NOTE | 2018-08-20 10:30 | CP.PCM.PN ---
Subjective - Date & Time of Evaluation Date of Evaluation: 08/20/18 Time of Evaluation: 10:31 - Subjective Subjective: AWAKE AND ALERT RESPONDS APPROPRIATELY TO VERBAL COMMANDS VSS Objective - Vital Signs/Intake and Output Vital Signs (last 24 hours): Temp Pulse Resp BP Pulse Ox 97.6 F 50 L 18 165/78 H 100 08/20/18 07:46 08/20/18 09:32 08/20/18 07:46 08/20/18 09:32 08/20/18 07:46 - Medications Medications: Current Medications Acetaminophen (Tylenol 325mg Tab) 650 mg PO Q6 PRN PRN Reason: Temperature Last Admin: 08/13/18 08:51 Dose: 650 mg Acetaminophen (Tylenol 325mg Tab) 650 mg PO Q6 PRN PRN Reason: Pain <5 Last Admin: 08/19/18 05:36 Dose: 650 mg Al Hydrox/Mg Hydrox/Simethicone (Maalox Plus 30 Ml) 30 ml PO Q6 PRN PRN Reason: Indigestion / Heartburn Albuterol/Ipratropium (Duoneb 3 Mg/0.5 Mg (3 Ml) Ud) 3 ml INH RQ6 [facility] Last Admin: 08/20/18 07:46 Dose: Not Given Dimethicone (Proshield Plus Skin Protectant) 1 applic TOP Q8 [facility] Last Admin: 08/20/18 09:32 Dose: 1 applic Ferrous Sulfate (Feosol) 325 mg PO TID [facility] Last Admin: 08/11/18 11:21 Dose: Not Given Furosemide (Lasix) 20 mg PO DAILY [facility] Last Admin: 08/20/18 09:31 Dose: 20 mg Insulin Human Regular (Humulin R) 0 units SC ACCU-CHECK [facility]; Protocol Last Admin: 08/20/18 06:26 Dose: 2 u Levetiracetam (Keppra) 500 mg PO BID [facility] Last Admin: 08/20/18 09:29 Dose: 500 mg Magnesium Oxide (Mag-Ox) 400 mg PO BID [facility] Last Admin: 08/20/18 09:28 Dose: 400 mg Metformin HCl (Glucophage) 1,000 mg PO BIDWM [facility] Last Admin: 08/20/18 09:27 Dose: 1,000 mg Metoprolol Tartrate (Lopressor) 25 mg PO Q12 [facility] Last Admin: 08/20/18 09:32 Dose: Not Given Ondansetron HCl (Zofran Inj) 4 mg IVP Q6 PRN PRN Reason: Nausea/Vomiting Last Admin: 08/20/18 02:40 Dose: 4 mg Potassium Chloride (K-Dur 20 Meq Er Tab) 20 meq PO BID [facility] Last Admin: 08/20/18 09:28 Dose: 20 meq Sitagliptin Phosphate (Januvia) 100 mg PO DAILY [facility] Last Admin: 08/20/18 09:28 Dose: 100 mg Vancomycin HCl (Vancocin (Oral/Rectal Use)) 500 mg PO Q6 [facility]; Protocol Last Admin: 08/20/18 09:32 Dose: 500 mg - Labs Labs: 08/19/18 05:30 08/19/18 05:30 PT 16.2 Seconds (9.8-13.1) H 08/04/18 10:28 INR 1.4 08/04/18 10:28 APTT 35.6 Seconds (25.6-37.1) 08/04/18 10:28 - Constitutional Appears: Older Than Stated Age, Chronically Ill - Head Exam Head Exam: ATRAUMATIC, NORMAL INSPECTION, NORMOCEPHALIC - Eye Exam Eye Exam: EOMI, Normal appearance, PERRL Pupil Exam: NORMAL ACCOMODATION, PERRL - ENT Exam ENT Exam: Mucous Membranes Moist, Normal Exam - Neck Exam Neck Exam: Full ROM, Normal Inspection. absent: Lymphadenopathy - Respiratory Exam Respiratory Exam: Prolonged Expiratory Phase, Rales, NORMAL BREATHING PATTERN - Cardiovascular Exam Cardiovascular Exam: REGULAR RHYTHM, +S1, +S2. absent: Murmur - GI/Abdominal Exam GI & Abdominal Exam: Soft, Normal Bowel Sounds. absent: Tenderness - Rectal Exam Rectal Exam: NORMAL INSPECTION - Extremities Exam Extremities Exam: Full ROM, Normal Capillary Refill, Normal Inspection. absent: Joint Swelling, Pedal Edema - Back Exam Back Exam: NORMAL INSPECTION - Neurological Exam Neurological Exam: Alert, Awake, CN II-XII Intact, Oriented x3 - Psychiatric Exam Psychiatric exam: Normal Affect, Normal Mood - Skin Skin Exam: Dry, Intact, Normal Color, Warm Assessment and Plan - Assessment and Plan (Free Text) Assessment: RESPIRATORY FAILURE IMPROVED SEPSIS-IMPROVED Plan: REPEAT CXR IN AM AGGRESSIVE PT/OT
--- NOTE | 2018-08-20 13:16 | CP.PCM.PN ---
Subjective - Date & Time of Evaluation Date of Evaluation: 08/20/18 Time of Evaluation: 08:00 - Subjective Subjective: afeb less sob nad Objective - Vital Signs/Intake and Output Vital Signs (last 24 hours): Temp Pulse Resp BP Pulse Ox 97.9 F 68 18 136/79 96 08/20/18 11:55 08/20/18 11:55 08/20/18 11:55 08/20/18 11:55 08/20/18 11:55 - Medications Medications: Current Medications Acetaminophen (Tylenol 325mg Tab) 650 mg PO Q6 PRN PRN Reason: Temperature Last Admin: 08/13/18 08:51 Dose: 650 mg Acetaminophen (Tylenol 325mg Tab) 650 mg PO Q6 PRN PRN Reason: Pain <5 Last Admin: 08/19/18 05:36 Dose: 650 mg Al Hydrox/Mg Hydrox/Simethicone (Maalox Plus 30 Ml) 30 ml PO Q6 PRN PRN Reason: Indigestion / Heartburn Albuterol/Ipratropium (Duoneb 3 Mg/0.5 Mg (3 Ml) Ud) 3 ml INH RQ6 [facility] Last Admin: 08/20/18 13:05 Dose: Not Given Dimethicone (Proshield Plus Skin Protectant) 1 applic TOP Q8 [facility] Last Admin: 08/20/18 09:32 Dose: 1 applic Ferrous Sulfate (Feosol) 325 mg PO TID [facility] Last Admin: 08/11/18 11:21 Dose: Not Given Furosemide (Lasix) 20 mg PO DAILY [facility] Last Admin: 08/20/18 09:31 Dose: 20 mg Insulin Human Regular (Humulin R) 0 units SC ACCU-CHECK [facility]; Protocol Last Admin: 08/20/18 13:05 Dose: Not Given Levetiracetam (Keppra) 500 mg PO BID [facility] Last Admin: 08/20/18 09:29 Dose: 500 mg Losartan Potassium (Cozaar) 50 mg PO DAILY [facility] Last Admin: 08/20/18 11:13 Dose: 50 mg Magnesium Oxide (Mag-Ox) 400 mg PO BID [facility] Last Admin: 08/20/18 09:28 Dose: 400 mg Metformin HCl (Glucophage) 1,000 mg PO BIDWM [facility] Last Admin: 08/20/18 09:27 Dose: 1,000 mg Metoprolol Tartrate (Lopressor) 25 mg PO Q12 [facility] Last Admin: 08/20/18 09:32 Dose: Not Given Ondansetron HCl (Zofran Inj) 4 mg IVP Q6 PRN PRN Reason: Nausea/Vomiting Last Admin: 08/20/18 02:40 Dose: 4 mg Potassium Chloride (K-Dur 20 Meq Er Tab) 20 meq PO BID [facility] Last Admin: 08/20/18 09:28 Dose: 20 meq Sitagliptin Phosphate (Januvia) 100 mg PO DAILY [facility] Last Admin: 08/20/18 09:28 Dose: 100 mg Vancomycin HCl (Vancocin (Oral/Rectal Use)) 500 mg PO Q6 [facility]; Protocol Last Admin: 08/20/18 09:32 Dose: 500 mg - Labs Labs: 08/19/18 05:30 08/19/18 05:30 PT 16.2 Seconds (9.8-13.1) H 08/04/18 10:28 INR 1.4 08/04/18 10:28 APTT 35.6 Seconds (25.6-37.1) 08/04/18 10:28 - Constitutional Appears: Non-toxic, Chronically Ill - Head Exam Head Exam: NORMOCEPHALIC - Eye Exam Eye Exam: absent: Scleral icterus - ENT Exam ENT Exam: Mucous Membranes Dry - Neck Exam Neck Exam: absent: Lymphadenopathy - Respiratory Exam Respiratory Exam: Decreased Breath Sounds - Cardiovascular Exam Cardiovascular Exam: REGULAR RHYTHM - GI/Abdominal Exam GI & Abdominal Exam: Distended, Soft - Rectal Exam Rectal Exam: Deferred - Exam Exam: NORMAL INSPECTION - Extremities Exam Extremities Exam: absent: Pedal Edema - Back Exam Back Exam: absent: CVA tenderness (L), CVA tenderness (R) - Neurological Exam Neurological Exam: Alert, Awake Neuro motor strength exam: Left Upper Extremity: 4, Right Upper Extremity: 0, Left Lower Extremity: 4, Right Lower Extremity: 0 - Psychiatric Exam Psychiatric exam: Depressed - Skin Skin Exam: Dry Assessment and Plan (1) Sepsis Status: Acute (2) Change in mental state Status: Acute (3) History of CVA with residual deficit Status: Acute (4) Diabetes 1.5, managed as type 2 Status: Chronic (5) History of CVA (cerebrovascular accident) Status: Chronic (6) NSTEMI (non-ST elevated myocardial infarction) Status: Acute (7) JORGE A (acute kidney injury) Status: Acute (8) Pansinusitis Status: Acute (9) Pneumonia Status: Acute (10) Nephrotic syndrome Status: Acute - Assessment and Plan (Free Text) Assessment: cont rx as per dr Grier
--- NOTE | 2018-08-20 14:02 | CP.PCM.PN ---
Subjective - Date & Time of Evaluation Date of Evaluation: 08/20/18 Time of Evaluation: 14:01 - Subjective Subjective: Nephrology Consultation Note Assessment: stable Acute renal failure/acute kidney injury related to multifactorial including sepsis required dialysis: RESOLVED Diabetes mellitus and history of hypertension history of CVA. 7 gram proteinuria on dipstick Hypokalemia, Hypomagnesemia Plan Hypertension control with meds as ordered. Maintain hemodynamics stable. Avoid hypotension. Patient not on ACEI/ARB due to recent JORGE A. will add losartan 50 mg/d as BP elevated as well Monitor Input/Output, daily weights and renal function with basic metabolic panel supplement lytes as needed repeat UA, urine pr/cr and alb/cr Dose meds/antibiotics for GFR >60 Glycemic control Further work up for as per primary team Thanks for allowing me to participate in care of your patient. Will follow patient with you. Please call if any Qs. Dr Scott Sherman Office: [phone] Subjective: Noted events overnight. Patients feels better. no urine complaints. SOB better Physical Examination: General Appearance: comfortable no acute distress Vitals reviewed and noted as below Head; Atraumatic, normocephalic Neck; supple no lymphadenopathy, no thyromegaly or bruit Lungs: Normal respiratory rate/effort. Breath sounds bilateral reduced at bases Heart: Normal rate. s1s2 normal. No rub or gallop. Extremities: no edema. No varicose veins Neurological: Patient is awake alert follow commands. Rt hand contractures Skin: Warm and dry. Normal turgor. No rash. Palpitation: Normal elasticity for age Abdomen: Abdomen is soft. Bowel sounds +. There is no abdominal tenderness, no guarding/rigidity no organomegaly Psych: limite dinsight. normal affect MSK: no joint tenderness or swelling. Digits and nails normal, no deformity : kidney or bladder not palpable Labs/imaging reviewed. Past medical history, past surgical history, family history, social history, allergy reviewed and noted as below Family hx: no hx of CKD. Rest non-contributory Objective - Vital Signs/Intake and Output Vital Signs (last 24 hours): Temp Pulse Resp BP Pulse Ox 97.9 F 68 18 136/79 96 08/20/18 11:55 08/20/18 11:55 08/20/18 11:55 08/20/18 11:55 08/20/18 11:55 - Medications Medications: Current Medications Acetaminophen (Tylenol 325mg Tab) 650 mg PO Q6 PRN PRN Reason: Temperature Last Admin: 08/13/18 08:51 Dose: 650 mg Acetaminophen (Tylenol 325mg Tab) 650 mg PO Q6 PRN PRN Reason: Pain <5 Last Admin: 08/19/18 05:36 Dose: 650 mg Al Hydrox/Mg Hydrox/Simethicone (Maalox Plus 30 Ml) 30 ml PO Q6 PRN PRN Reason: Indigestion / Heartburn Albuterol/Ipratropium (Duoneb 3 Mg/0.5 Mg (3 Ml) Ud) 3 ml INH RQ6 [facility] Last Admin: 08/20/18 13:05 Dose: Not Given Dimethicone (Proshield Plus Skin Protectant) 1 applic TOP Q8 [facility] Last Admin: 08/20/18 09:32 Dose: 1 applic Ferrous Sulfate (Feosol) 325 mg PO TID [facility] Last Admin: 08/11/18 11:21 Dose: Not Given Furosemide (Lasix) 20 mg PO DAILY [facility] Last Admin: 08/20/18 09:31 Dose: 20 mg Insulin Human Regular (Humulin R) 0 units SC ACCU-CHECK [facility]; Protocol Last Admin: 08/20/18 13:05 Dose: Not Given Levetiracetam (Keppra) 500 mg PO BID [facility] Last Admin: 08/20/18 09:29 Dose: 500 mg Losartan Potassium (Cozaar) 50 mg PO DAILY [facility] Last Admin: 08/20/18 11:13 Dose: 50 mg Magnesium Oxide (Mag-Ox) 400 mg PO BID [facility] Last Admin: 08/20/18 09:28 Dose: 400 mg Metformin HCl (Glucophage) 1,000 mg PO BIDWM [facility] Last Admin: 08/20/18 09:27 Dose: 1,000 mg Metoprolol Tartrate (Lopressor) 25 mg PO Q12 [facility] Last Admin: 08/20/18 09:32 Dose: Not Given Ondansetron HCl (Zofran Inj) 4 mg IVP Q6 PRN PRN Reason: Nausea/Vomiting Last Admin: 08/20/18 02:40 Dose: 4 mg Potassium Chloride (K-Dur 20 Meq Er Tab) 20 meq PO BID [facility] Last Admin: 08/20/18 09:28 Dose: 20 meq Sitagliptin Phosphate (Januvia) 100 mg PO DAILY [facility] Last Admin: 08/20/18 09:28 Dose: 100 mg Vancomycin HCl (Vancocin (Oral/Rectal Use)) 500 mg PO Q6 [facility]; Protocol Last Admin: 08/20/18 09:32 Dose: 500 mg - Labs Labs: 08/19/18 05:30 08/19/18 05:30 PT 16.2 Seconds (9.8-13.1) H 08/04/18 10:28 INR 1.4 08/04/18 10:28 APTT 35.6 Seconds (25.6-37.1) 08/04/18 10:28
--- NOTE | 2018-08-20 14:37 | RAD ---
Date of service: 08/20/2018 PROCEDURE: CHEST RADIOGRAPH, 1 VIEW HISTORY: PNEUMONIA COMPARISON: 08/17/2018 FINDINGS: LUNGS: Mild improvement in aeration. PLEURA: There is mild improvement in aeration at the lung bases with decreased right effusion identified. Vasculature may also be slightly improved. Heart is unchanged. CARDIOVASCULAR: No aortic atherosclerotic calcification present. Stable appearance of the heart and aorta. There is evidence of prior median sternotomy. OSSEOUS STRUCTURES: No significant abnormalities. VISUALIZED UPPER ABDOMEN: Normal. OTHER FINDINGS: None. IMPRESSION: Mild improvement in aeration with probable mild decrease in right pleural effusion.
[2018-08-20 16:21] LABS: ALB/GLOB RATIO 0.9 (1.0-2.1); ALBUMIN 4.1 g/dL (3.5-5.0); ALT/SGPT 49 U/L (9-52); AST/SGOT 40 U/L (14-36); BLOOD UREA NITROGEN 8 mg/dl (7-17); CALCIUM 9.4 mg/dL (8.4-10.2); GFR NON-AFRICAN AMERICAN > 60
[2018-08-21] MEDS: Proshield Plus GEL TOP SCH ×3 (01:30→17:47)
[2018-08-21] MEDS: Albuterol-Ipratrop 3 mg / 0.5 (3 ml) UD INH SCH ×4 (03:07→19:17)
[2018-08-21] MEDS: Vancomycin 500 mg (Oral/Rectal USE) PO SCH ×4 (04:08→22:30)
[2018-08-21] MEDS: Insulin Regular 100 units/ml SC SCH ×4 (07:01→22:29)
[2018-08-21] MEDS ORDERED: Magnesium Sulfate 2 gm/50 ml 2 GM/50 ML BAG IVPB ONE (08:34)
[2018-08-21 10:19] LABS: ALB/GLOB RATIO 0.7 (1.0-2.1); ALBUMIN 3.2 g/dL (3.5-5.0); ALT/SGPT 45 U/L (9-52); AST/SGOT 33 U/L (14-36); BLOOD UREA NITROGEN 7 mg/dl (7-17); CALCIUM 9.2 mg/dL (8.4-10.2); GFR NON-AFRICAN AMERICAN > 60
[2018-08-21] MEDS: Potassium Chloride 20 mEq ER Tab PO SCH ×2 (10:20→17:46)
[2018-08-21] MEDS: Magnesium Oxide 400 mg Tab UD PO SCH ×2 (10:30→17:47)
--- NOTE | 2018-08-21 10:58 | CP.PCM.PN ---
Subjective - Date & Time of Evaluation Date of Evaluation: 08/21/18 Time of Evaluation: 08:00 - Subjective Subjective: seen on rounds in [facility] Objective - Vital Signs/Intake and Output Vital Signs (last 24 hours): Temp Pulse Resp BP Pulse Ox 98.2 F 73 20 131/85 96 08/21/18 09:05 08/21/18 10:29 08/21/18 09:05 08/21/18 10:29 08/21/18 09:05 - Medications Medications: Current Medications Acetaminophen (Tylenol 325mg Tab) 650 mg PO Q6 PRN PRN Reason: Temperature Last Admin: 08/13/18 08:51 Dose: 650 mg Acetaminophen (Tylenol 325mg Tab) 650 mg PO Q6 PRN PRN Reason: Pain <5 Last Admin: 08/20/18 21:48 Dose: 650 mg Al Hydrox/Mg Hydrox/Simethicone (Maalox Plus 30 Ml) 30 ml PO Q6 PRN PRN Reason: Indigestion / Heartburn Albuterol/Ipratropium (Duoneb 3 Mg/0.5 Mg (3 Ml) Ud) 3 ml INH RQ6 [facility] Last Admin: 08/21/18 07:28 Dose: 3 ml Dimethicone (Proshield Plus Skin Protectant) 1 applic TOP Q8 [facility] Last Admin: 08/21/18 10:33 Dose: 1 applic Ferrous Sulfate (Feosol) 325 mg PO TID [facility] Last Admin: 08/11/18 11:21 Dose: Not Given Furosemide (Lasix) 20 mg PO DAILY [facility] Last Admin: 08/21/18 10:27 Dose: 20 mg Insulin Human Regular (Humulin R) 0 units SC ACCU-CHECK [facility]; Protocol Last Admin: 08/21/18 07:01 Dose: Not Given Levetiracetam (Keppra) 500 mg PO BID [facility] Last Admin: 08/21/18 10:28 Dose: 500 mg Losartan Potassium (Cozaar) 50 mg PO DAILY [facility] Last Admin: 08/21/18 10:19 Dose: 50 mg Magnesium Oxide (Mag-Ox) 400 mg PO BID [facility] Last Admin: 08/21/18 10:30 Dose: 400 mg Metformin HCl (Glucophage) 1,000 mg PO BIDWM [facility] Last Admin: 08/21/18 10:18 Dose: 1,000 mg Metoprolol Tartrate (Lopressor) 25 mg PO Q12 [facility] Last Admin: 08/21/18 10:29 Dose: 25 mg Ondansetron HCl (Zofran Inj) 4 mg IVP Q6 PRN PRN Reason: Nausea/Vomiting Last Admin: 08/20/18 02:40 Dose: 4 mg Potassium Chloride (K-Dur 20 Meq Er Tab) 20 meq PO BID [facility] Last Admin: 08/21/18 10:20 Dose: 20 meq Sitagliptin Phosphate (Januvia) 100 mg PO DAILY [facility] Last Admin: 08/21/18 10:20 Dose: 100 mg Vancomycin HCl (Vancocin (Oral/Rectal Use)) 500 mg PO Q6 [facility]; Protocol Last Admin: 08/21/18 10:30 Dose: 500 mg - Labs Labs: 08/19/18 05:30 08/21/18 09:20 PT 16.2 Seconds (9.8-13.1) H 08/04/18 10:28 INR 1.4 08/04/18 10:28 APTT 35.6 Seconds (25.6-37.1) 08/04/18 10:28 - Constitutional Appears: Non-toxic, Chronically Ill - Head Exam Head Exam: NORMOCEPHALIC - Eye Exam Eye Exam: PERRL Pupil Exam: NORMAL ACCOMODATION - ENT Exam ENT Exam: Mucous Membranes Dry - Neck Exam Neck Exam: absent: Lymphadenopathy - Respiratory Exam Respiratory Exam: Decreased Breath Sounds - Cardiovascular Exam Cardiovascular Exam: REGULAR RHYTHM - GI/Abdominal Exam GI & Abdominal Exam: Distended, Soft - Rectal Exam Rectal Exam: Deferred - Exam Exam: NORMAL INSPECTION - Extremities Exam Extremities Exam: absent: Pedal Edema - Back Exam Back Exam: absent: CVA tenderness (L), CVA tenderness (R) - Neurological Exam Neurological Exam: Altered Neuro motor strength exam: Left Upper Extremity: 3, Right Upper Extremity: 0, Left Lower Extremity: 3, Right Lower Extremity: 0 - Psychiatric Exam Psychiatric exam: Depressed Assessment and Plan (1) Sepsis Status: Acute (2) Change in mental state Status: Acute (3) History of CVA with residual deficit Status: Acute (4) Diabetes 1.5, managed as type 2 Status: Chronic (5) History of CVA (cerebrovascular accident) Status: Chronic (6) NSTEMI (non-ST elevated myocardial infarction) Status: Acute (7) JORGE A (acute kidney injury) Status: Resolved (8) Pansinusitis Status: Acute (9) Pneumonia Status: Acute (10) Nephrotic syndrome Status: Acute
--- NOTE | 2018-08-21 11:05 | CP.PCM.PN ---
Subjective - Date & Time of Evaluation Date of Evaluation: 08/21/18 Time of Evaluation: 11:05 - Subjective Subjective: Patient more awake feeling much better she appears to be eating. Vital signs stable Objective - Vital Signs/Intake and Output Vital Signs (last 24 hours): Temp Pulse Resp BP Pulse Ox 98.2 F 73 20 131/85 96 08/21/18 09:05 08/21/18 10:29 08/21/18 09:05 08/21/18 10:29 08/21/18 09:05 - Medications Medications: Current Medications Acetaminophen (Tylenol 325mg Tab) 650 mg PO Q6 PRN PRN Reason: Temperature Last Admin: 08/13/18 08:51 Dose: 650 mg Acetaminophen (Tylenol 325mg Tab) 650 mg PO Q6 PRN PRN Reason: Pain <5 Last Admin: 08/20/18 21:48 Dose: 650 mg Al Hydrox/Mg Hydrox/Simethicone (Maalox Plus 30 Ml) 30 ml PO Q6 PRN PRN Reason: Indigestion / Heartburn Albuterol/Ipratropium (Duoneb 3 Mg/0.5 Mg (3 Ml) Ud) 3 ml INH RQ6 [facility] Last Admin: 08/21/18 07:28 Dose: 3 ml Dimethicone (Proshield Plus Skin Protectant) 1 applic TOP Q8 [facility] Last Admin: 08/21/18 10:33 Dose: 1 applic Ferrous Sulfate (Feosol) 325 mg PO TID [facility] Last Admin: 08/11/18 11:21 Dose: Not Given Furosemide (Lasix) 20 mg PO DAILY [facility] Last Admin: 08/21/18 10:27 Dose: 20 mg Insulin Human Regular (Humulin R) 0 units SC ACCU-CHECK [facility]; Protocol Last Admin: 08/21/18 07:01 Dose: Not Given Levetiracetam (Keppra) 500 mg PO BID [facility] Last Admin: 08/21/18 10:28 Dose: 500 mg Losartan Potassium (Cozaar) 50 mg PO DAILY [facility] Last Admin: 08/21/18 10:19 Dose: 50 mg Magnesium Oxide (Mag-Ox) 400 mg PO BID [facility] Last Admin: 08/21/18 10:30 Dose: 400 mg Metformin HCl (Glucophage) 1,000 mg PO BIDWM [facility] Last Admin: 03/18/19 10:18 Dose: 1,000 mg Metoprolol Tartrate (Lopressor) 25 mg PO Q12 [facility] Last Admin: 08/21/18 10:29 Dose: 25 mg Ondansetron HCl (Zofran Inj) 4 mg IVP Q6 PRN PRN Reason: Nausea/Vomiting Last Admin: 08/20/18 02:40 Dose: 4 mg Potassium Chloride (K-Dur 20 Meq Er Tab) 20 meq PO BID [facility] Last Admin: 08/21/18 10:20 Dose: 20 meq Sitagliptin Phosphate (Januvia) 100 mg PO DAILY [facility] Last Admin: 08/21/18 10:20 Dose: 100 mg Vancomycin HCl (Vancocin (Oral/Rectal Use)) 500 mg PO Q6 [facility]; Protocol Last Admin: 08/21/18 10:30 Dose: 500 mg - Labs Labs: 08/19/18 05:30 08/21/18 09:20 PT 16.2 Seconds (9.8-13.1) H 08/04/18 10:28 INR 1.4 08/04/18 10:28 APTT 35.6 Seconds (25.6-37.1) 08/04/18 10:28 - Constitutional Appears: No Acute Distress - Eye Exam Eye Exam: Conjunctival injection - ENT Exam ENT Exam: Mucous Membranes Moist - Respiratory Exam Respiratory Exam: NORMAL BREATHING PATTERN. absent: Rhonchi - Back Exam Back Exam: absent: CVA tenderness (L), CVA tenderness (R) - Neurological Exam Neurological Exam: Alert - Skin Skin Exam: absent: Cyanosis Assessment and Plan (1) JORGE A (acute kidney injury) Assessment & Plan: Respiratory failure/ patient extubated Acute renal failure/acute kidney injury related to multifactorial including sepsis. Required dialysis initially which has been resolved Diabetes mellitus and history of hypertension history of CVA. encephalopathy patient improving mental status much better and more awake hyperurecemia corrected , Hyperphosphatemia corrected S/P Shock liver improving liver function test Nephrotic syndrome proteinuria with 7 gram proteinuria based on protein to creatinine ratio Hypokalemia. Given potassium chloride Hypomagnesemia Hypernatremia corrected Plan Patient more awake Hypomagnesemia persisted please give 2 g of magnesium intravenously Serum potassium is okay for now but keep watching Status: Acute (2) Elevated liver enzymes Status: Acute (3) Elevated troponin level Status: Acute (4) Leukocytosis Status: Acute (5) Sepsis Status: Acute
--- NOTE | 2018-08-21 11:08 | CP.PCM.PN ---
Subjective - Date & Time of Evaluation Date of Evaluation: 08/19/18 Time of Evaluation: 11:00 - Subjective Subjective: patient seen and examined at bedside. no family at bedside Improving, eating and able to converse Interim events noted available diagnostic data reviewed Review of Systems All systems: reviewed and no additional remarkable complaints except mentioned above Objective Vital Signs Stable - Constitutional Appears: Chronically Ill Head Exam: NORMAL INSPECTION Respiratory Exam: CTABL Cardiovascular Exam: +S1, +S2 GI & Abdominal Exam: Soft, mildly tender Neurological Exam: Alert, Awake Skin Exam: Normal Color, Warm Assessment and Plan monitor vitals monitor labs Cont meds Cont tx ID, Cardio, Neuro, Renal, Pulm following consultants appreciated input PT rest of plan as ordered Objective - Vital Signs/Intake and Output Vital Signs (last 24 hours): Temp Pulse Resp BP Pulse Ox 98.2 F 73 20 131/85 96 08/21/18 09:05 08/21/18 10:29 08/21/18 09:05 08/21/18 10:29 08/21/18 09:05 - Medications Medications: Current Medications Acetaminophen (Tylenol 325mg Tab) 650 mg PO Q6 PRN PRN Reason: Temperature Last Admin: 08/13/18 08:51 Dose: 650 mg Acetaminophen (Tylenol 325mg Tab) 650 mg PO Q6 PRN PRN Reason: Pain <5 Last Admin: 08/20/18 21:48 Dose: 650 mg Al Hydrox/Mg Hydrox/Simethicone (Maalox Plus 30 Ml) 30 ml PO Q6 PRN PRN Reason: Indigestion / Heartburn Albuterol/Ipratropium (Duoneb 3 Mg/0.5 Mg (3 Ml) Ud) 3 ml INH RQ6 [facility] Last Admin: 08/21/18 07:28 Dose: 3 ml Dimethicone (Proshield Plus Skin Protectant) 1 applic TOP Q8 [facility] Last Admin: 08/21/18 10:33 Dose: 1 applic Ferrous Sulfate (Feosol) 325 mg PO TID [facility] Last Admin: 08/11/18 11:21 Dose: Not Given Furosemide (Lasix) 20 mg PO DAILY [facility] Last Admin: 08/21/18 10:27 Dose: 20 mg Insulin Human Regular (Humulin R) 0 units SC ACCU-CHECK [facility]; Protocol Last Admin: 08/21/18 07:01 Dose: Not Given Levetiracetam (Keppra) 500 mg PO BID [facility] Last Admin: 08/21/18 10:28 Dose: 500 mg Losartan Potassium (Cozaar) 50 mg PO DAILY [facility] Last Admin: 08/21/18 10:19 Dose: 50 mg Magnesium Oxide (Mag-Ox) 400 mg PO BID [facility] Last Admin: 08/21/18 10:30 Dose: 400 mg Metformin HCl (Glucophage) 1,000 mg PO BIDWM [facility] Last Admin: 08/21/18 10:18 Dose: 1,000 mg Metoprolol Tartrate (Lopressor) 25 mg PO Q12 [facility] Last Admin: 08/21/18 10:29 Dose: 25 mg Ondansetron HCl (Zofran Inj) 4 mg IVP Q6 PRN PRN Reason: Nausea/Vomiting Last Admin: 08/20/18 02:40 Dose: 4 mg Potassium Chloride (K-Dur 20 Meq Er Tab) 20 meq PO BID [facility] Last Admin: 08/21/18 10:20 Dose: 20 meq Sitagliptin Phosphate (Januvia) 100 mg PO DAILY [facility] Last Admin: 08/21/18 10:20 Dose: 100 mg Vancomycin HCl (Vancocin (Oral/Rectal Use)) 500 mg PO Q6 [facility]; Protocol Last Admin: 08/21/18 10:30 Dose: 500 mg - Labs Labs: 08/19/18 05:30 08/21/18 09:20 PT 16.2 Seconds (9.8-13.1) H 08/04/18 10:28 INR 1.4 08/04/18 10:28 APTT 35.6 Seconds (25.6-37.1) 08/04/18 10:28 Assessment and Plan (1) Anemia Status: Acute (2) Abdominal pain Status: Acute (3) JORGE A (acute kidney injury) Status: Resolved
--- NOTE | 2018-08-21 11:11 | CP.PCM.PN ---
Subjective - Date & Time of Evaluation Date of Evaluation: 08/20/18 Time of Evaluation: 11:00 - Subjective Subjective: patient seen and examined at bedside. no family at bedside States improvement Interim events noted available diagnostic data reviewed Review of Systems All systems: reviewed and no additional remarkable complaints except mentioned above Objective Vital Signs Stable - Constitutional Appears: Chronically Ill Head Exam: NORMAL INSPECTION Respiratory Exam: CTABL Cardiovascular Exam: +S1, +S2 GI & Abdominal Exam: Soft, mildly tender Neurological Exam: Alert, Awake Skin Exam: Normal Color, Warm Assessment and Plan monitor vitals monitor labs Cont meds Cont tx ID, Cardio, Neuro, Renal, Pulm following consultants appreciated input PT rest of plan as ordered Objective - Vital Signs/Intake and Output Vital Signs (last 24 hours): Temp Pulse Resp BP Pulse Ox 98.2 F 73 20 131/85 96 08/21/18 09:05 08/21/18 10:29 08/21/18 09:05 08/21/18 10:29 08/21/18 09:05 - Medications Medications: Current Medications Acetaminophen (Tylenol 325mg Tab) 650 mg PO Q6 PRN PRN Reason: Temperature Last Admin: 08/13/18 08:51 Dose: 650 mg Acetaminophen (Tylenol 325mg Tab) 650 mg PO Q6 PRN PRN Reason: Pain <5 Last Admin: 08/20/18 21:48 Dose: 650 mg Al Hydrox/Mg Hydrox/Simethicone (Maalox Plus 30 Ml) 30 ml PO Q6 PRN PRN Reason: Indigestion / Heartburn Albuterol/Ipratropium (Duoneb 3 Mg/0.5 Mg (3 Ml) Ud) 3 ml INH RQ6 [facility] Last Admin: 08/21/18 07:28 Dose: 3 ml Dimethicone (Proshield Plus Skin Protectant) 1 applic TOP Q8 [facility] Last Admin: 08/21/18 10:33 Dose: 1 applic Ferrous Sulfate (Feosol) 325 mg PO TID [facility] Last Admin: 08/11/18 11:21 Dose: Not Given Furosemide (Lasix) 20 mg PO DAILY [facility] Last Admin: 08/21/18 10:27 Dose: 20 mg Insulin Human Regular (Humulin R) 0 units SC ACCU-CHECK [facility]; Protocol Last Admin: 08/21/18 07:01 Dose: Not Given Levetiracetam (Keppra) 500 mg PO BID [facility] Last Admin: 08/21/18 10:28 Dose: 500 mg Losartan Potassium (Cozaar) 50 mg PO DAILY [facility] Last Admin: 08/21/18 10:19 Dose: 50 mg Magnesium Oxide (Mag-Ox) 400 mg PO BID [facility] Last Admin: 08/21/18 10:30 Dose: 400 mg Metformin HCl (Glucophage) 1,000 mg PO BIDWM [facility] Last Admin: 08/21/18 10:18 Dose: 1,000 mg Metoprolol Tartrate (Lopressor) 25 mg PO Q12 [facility] Last Admin: 08/21/18 10:29 Dose: 25 mg Ondansetron HCl (Zofran Inj) 4 mg IVP Q6 PRN PRN Reason: Nausea/Vomiting Last Admin: 08/20/18 02:40 Dose: 4 mg Potassium Chloride (K-Dur 20 Meq Er Tab) 20 meq PO BID [facility] Last Admin: 08/21/18 10:20 Dose: 20 meq Sitagliptin Phosphate (Januvia) 100 mg PO DAILY [facility] Last Admin: 08/21/18 10:20 Dose: 100 mg Vancomycin HCl (Vancocin (Oral/Rectal Use)) 500 mg PO Q6 [facility]; Protocol Last Admin: 08/21/18 10:30 Dose: 500 mg - Labs Labs: 08/19/18 05:30 08/21/18 09:20 PT 16.2 Seconds (9.8-13.1) H 08/04/18 10:28 INR 1.4 08/04/18 10:28 APTT 35.6 Seconds (25.6-37.1) 08/04/18 10:28 Assessment and Plan (1) Anemia Status: Acute (2) Abdominal pain Status: Acute (3) JORGE A (acute kidney injury) Status: Resolved
--- NOTE | 2018-08-21 11:12 | CP.PCM.PN ---
Subjective - Date & Time of Evaluation Date of Evaluation: 08/21/18 Time of Evaluation: 10:00 - Subjective Subjective: patient seen and examined at bedside. no family at bedside no complaints offered Interim events noted available diagnostic data reviewed Review of Systems All systems: reviewed and no additional remarkable complaints except mentioned above Objective Vital Signs Stable - Constitutional Appears: Chronically Ill Head Exam: NORMAL INSPECTION Respiratory Exam: CTABL Cardiovascular Exam: +S1, +S2 GI & Abdominal Exam: Soft, mildly tender Neurological Exam: Alert, Awake Skin Exam: Normal Color, Warm Assessment and Plan monitor vitals monitor labs Cont meds Cont tx ID, Cardio, Neuro, Renal, Pulm following consultants appreciated input PT/dispo planning rest of plan as ordered Objective - Vital Signs/Intake and Output Vital Signs (last 24 hours): Temp Pulse Resp BP Pulse Ox 98.2 F 73 20 131/85 96 08/21/18 09:05 08/21/18 10:29 08/21/18 09:05 08/21/18 10:29 08/21/18 09:05 - Medications Medications: Current Medications Acetaminophen (Tylenol 325mg Tab) 650 mg PO Q6 PRN PRN Reason: Temperature Last Admin: 08/13/18 08:51 Dose: 650 mg Acetaminophen (Tylenol 325mg Tab) 650 mg PO Q6 PRN PRN Reason: Pain <5 Last Admin: 08/20/18 21:48 Dose: 650 mg Al Hydrox/Mg Hydrox/Simethicone (Maalox Plus 30 Ml) 30 ml PO Q6 PRN PRN Reason: Indigestion / Heartburn Albuterol/Ipratropium (Duoneb 3 Mg/0.5 Mg (3 Ml) Ud) 3 ml INH RQ6 [facility] Last Admin: 08/21/18 07:28 Dose: 3 ml Dimethicone (Proshield Plus Skin Protectant) 1 applic TOP Q8 [facility] Last Admin: 08/21/18 10:33 Dose: 1 applic Ferrous Sulfate (Feosol) 325 mg PO TID [facility] Last Admin: 08/11/18 11:21 Dose: Not Given Furosemide (Lasix) 20 mg PO DAILY [facility] Last Admin: 08/21/18 10:27 Dose: 20 mg Insulin Human Regular (Humulin R) 0 units SC ACCU-CHECK [facility]; Protocol Last Admin: 08/21/18 07:01 Dose: Not Given Levetiracetam (Keppra) 500 mg PO BID [facility] Last Admin: 08/21/18 10:28 Dose: 500 mg Losartan Potassium (Cozaar) 50 mg PO DAILY [facility] Last Admin: 08/21/18 10:19 Dose: 50 mg Magnesium Oxide (Mag-Ox) 400 mg PO BID [facility] Last Admin: 08/21/18 10:30 Dose: 400 mg Metformin HCl (Glucophage) 1,000 mg PO BIDWM [facility] Last Admin: 08/21/18 10:18 Dose: 1,000 mg Metoprolol Tartrate (Lopressor) 25 mg PO Q12 [facility] Last Admin: 08/21/18 10:29 Dose: 25 mg Ondansetron HCl (Zofran Inj) 4 mg IVP Q6 PRN PRN Reason: Nausea/Vomiting Last Admin: 08/20/18 02:40 Dose: 4 mg Potassium Chloride (K-Dur 20 Meq Er Tab) 20 meq PO BID [facility] Last Admin: 08/21/18 10:20 Dose: 20 meq Sitagliptin Phosphate (Januvia) 100 mg PO DAILY [facility] Last Admin: 08/21/18 10:20 Dose: 100 mg Vancomycin HCl (Vancocin (Oral/Rectal Use)) 500 mg PO Q6 [facility]; Protocol Last Admin: 08/21/18 10:30 Dose: 500 mg - Labs Labs: 08/19/18 05:30 08/21/18 09:20 PT 16.2 Seconds (9.8-13.1) H 08/04/18 10:28 INR 1.4 08/04/18 10:28 APTT 35.6 Seconds (25.6-37.1) 08/04/18 10:28 Assessment and Plan (1) Anemia Status: Acute (2) Abdominal pain Status: Acute (3) JORGE A (acute kidney injury) Status: Resolved
[2018-08-21] MEDS ORDERED: guaiFENesin DM 200 mg-20 mg/10 ml UD PO PRN (22:44)
[2018-08-22] MEDS: Proshield Plus GEL TOP SCH ×3 (01:55→16:33)
[2018-08-22] MEDS: Albuterol-Ipratrop 3 mg / 0.5 (3 ml) UD INH SCH ×4 (02:04→19:10)
[2018-08-22] MEDS: Vancomycin 500 mg (Oral/Rectal USE) PO SCH ×4 (03:39→21:34)
[2018-08-22] MEDS: Insulin Regular 100 units/ml SC SCH ×4 (06:03→23:00)
[2018-08-22] MEDS: Potassium Chloride 20 mEq ER Tab PO SCH ×2 (08:54→16:28)
[2018-08-22] MEDS: Magnesium Oxide 400 mg Tab UD PO SCH ×2 (08:55→16:29)
--- NOTE | 2018-08-22 09:32 | CP.PCM.PN ---
Subjective - Date & Time of Evaluation Date of Evaluation: 08/22/18 Time of Evaluation: 09:29 - Subjective Subjective: Nephrology Consultation Note Assessment: stable Acute renal failure/acute kidney injury related to multifactorial including sepsis required dialysis: RESOLVED Diabetes mellitus and history of hypertension history of CVA. 7 gram proteinuria on dipstick Hypokalemia, Hypomagnesemia Plan Hypertension control with meds as ordered. Maintain hemodynamics stable. on losartan Monitor Input/Output, daily weights and renal function with basic metabolic panel will review labs when available + nephrotic range proteinuria - ? diabetic will need follow up w/ us in regards to this Office: [phone] Subjective: denies n/v wants t go home Physical Examination: General Appearance: comfortable no acute distress Vitals reviewed and noted as below Head; Atraumatic, normocephalic Neck; supple no lymphadenopathy, no thyromegaly or bruit Lungs: Normal respiratory rate/effort. Breath sounds bilateral reduced at bases Heart: Normal rate. s1s2 normal. No rub or gallop. Extremities: no edema. No varicose veins Neurological: Patient is awake alert follow commands. Rt hand contractures Skin: Warm and dry. Normal turgor. No rash. Palpitation: Normal elasticity for age Abdomen: Abdomen is soft. Bowel sounds +. There is no abdominal tenderness, no guarding/rigidity no organomegaly Psych: limite dinsight. normal affect MSK: no joint tenderness or swelling. Digits and nails normal, no deformity : kidney or bladder not palpable Labs/imaging reviewed. Past medical history, past surgical history, family history, social history, allergy reviewed and noted as below Family hx: no hx of CKD. Rest non-contributory Objective - Vital Signs/Intake and Output Vital Signs (last 24 hours): Temp Pulse Resp BP Pulse Ox 97.4 F L 63 18 141/85 98 08/22/18 08:00 08/22/18 08:57 08/22/18 08:00 08/22/18 08:57 08/22/18 08:00 - Medications Medications: Current Medications Acetaminophen (Tylenol 325mg Tab) 650 mg PO Q6 PRN PRN Reason: Temperature Last Admin: 08/13/18 08:51 Dose: 650 mg Acetaminophen (Tylenol 325mg Tab) 650 mg PO Q6 PRN PRN Reason: Pain <5 Last Admin: 08/22/18 01:59 Dose: 650 mg Al Hydrox/Mg Hydrox/Simethicone (Maalox Plus 30 Ml) 30 ml PO Q6 PRN PRN Reason: Indigestion / Heartburn Albuterol/Ipratropium (Duoneb 3 Mg/0.5 Mg (3 Ml) Ud) 3 ml INH RQ6 [facility] Last Admin: 08/22/18 07:54 Dose: 3 ml Dimethicone (Proshield Plus Skin Protectant) 1 applic TOP Q8 [facility] Last Admin: 08/22/18 09:00 Dose: 1 applic Ferrous Sulfate (Feosol) 325 mg PO TID [facility] Last Admin: 08/11/18 11:21 Dose: Not Given Furosemide (Lasix) 20 mg PO DAILY [facility] Last Admin: 08/22/18 08:55 Dose: 20 mg Guaifenesin/Dextromethorphan (Robitussin Dm) 10 ml PO Q6 PRN PRN Reason: Cough Last Admin: 08/21/18 23:00 Dose: 10 ml Insulin Human Regular (Humulin R) 0 units SC ACCU-CHECK [facility]; Protocol Last Admin: 08/22/18 06:03 Dose: Not Given Levetiracetam (Keppra) 500 mg PO BID [facility] Last Admin: 08/22/18 08:56 Dose: 500 mg Losartan Potassium (Cozaar) 50 mg PO DAILY [facility] Last Admin: 08/22/18 08:57 Dose: 50 mg Magnesium Oxide (Mag-Ox) 400 mg PO BID [facility] Last Admin: 08/22/18 08:55 Dose: 400 mg Metformin HCl (Glucophage) 1,000 mg PO BIDWM [facility] Last Admin: 08/22/18 08:54 Dose: 1,000 mg Metoprolol Tartrate (Lopressor) 25 mg PO Q12 [facility] Last Admin: 08/22/18 08:56 Dose: 25 mg Ondansetron HCl (Zofran Inj) 4 mg IVP Q6 PRN PRN Reason: Nausea/Vomiting Last Admin: 08/20/18 02:40 Dose: 4 mg Potassium Chloride (K-Dur 20 Meq Er Tab) 20 meq PO BID [facility] Last Admin: 08/22/18 08:54 Dose: 20 meq Sitagliptin Phosphate (Januvia) 100 mg PO DAILY [facility] Last Admin: 08/22/18 08:54 Dose: 100 mg Vancomycin HCl (Vancocin (Oral/Rectal Use)) 500 mg PO Q6 [facility]; Protocol Last Admin: 08/22/18 09:00 Dose: 500 mg - Labs Labs: 08/19/18 05:30 08/21/18 09:20 PT 16.2 Seconds (9.8-13.1) H 08/04/18 10:28 INR 1.4 08/04/18 10:28 APTT 35.6 Seconds (25.6-37.1) 08/04/18 10:28
[2018-08-23] MEDS: Albuterol-Ipratrop 3 mg / 0.5 (3 ml) UD INH SCH ×3 (01:00→13:39)
[2018-08-23] MEDS: Proshield Plus GEL TOP SCH ×2 (01:00→10:27)
[2018-08-23] MEDS: Vancomycin 500 mg (Oral/Rectal USE) PO SCH ×2 (04:03→10:27)
[2018-08-23 08:30] VITALS: RESP 20
--- NOTE | 2018-08-23 09:55 | CP.PCM.PN ---
Subjective - Date & Time of Evaluation Date of Evaluation: 08/23/18 Time of Evaluation: 09:55 - Subjective Subjective: AWAKE AND ALERTNO SOB LUNGS-BETTER AERATION CXR-IMPROVEMENT OF PLEURAL RXN AND EFFUSION FOR POSSIBLE TRANSFER TO REHAB/SUBACUTE CARE WILL CONTINUE CURRENT THERAPY Objective - Vital Signs/Intake and Output Vital Signs (last 24 hours): Temp Pulse Resp BP Pulse Ox 98.9 F 61 20 146/76 98 08/23/18 08:29 08/23/18 08:29 08/23/18 08:29 08/23/18 08:29 08/23/18 08:29 - Medications Medications: Current Medications Acetaminophen (Tylenol 325mg Tab) 650 mg PO Q6 PRN PRN Reason: Temperature Last Admin: 08/13/18 08:51 Dose: 650 mg Acetaminophen (Tylenol 325mg Tab) 650 mg PO Q6 PRN PRN Reason: Pain <5 Last Admin: 08/22/18 01:59 Dose: 650 mg Al Hydrox/Mg Hydrox/Simethicone (Maalox Plus 30 Ml) 30 ml PO Q6 PRN PRN Reason: Indigestion / Heartburn Albuterol/Ipratropium (Duoneb 3 Mg/0.5 Mg (3 Ml) Ud) 3 ml INH RQ6 [facility] Last Admin: 08/23/18 07:53 Dose: Not Given Ferrous Sulfate (Feosol) 325 mg PO TID [facility] Last Admin: 08/11/18 11:21 Dose: Not Given Furosemide (Lasix) 20 mg PO DAILY [facility] Last Admin: 08/22/18 08:55 Dose: 20 mg Furosemide (Lasix) 20 mg PO DAILY [facility] Last Admin: 08/22/18 16:30 Dose: Not Given Guaifenesin/Dextromethorphan (Robitussin Dm) 10 ml PO Q6 PRN PRN Reason: Cough Last Admin: 08/21/18 23:00 Dose: 10 ml Insulin Human Regular (Humulin R) 0 units SC ACCU-CHECK [facility]; Protocol Last Admin: 08/22/18 23:00 Dose: Not Given Levetiracetam (Keppra) 500 mg PO BID [facility] Last Admin: 08/22/18 16:31 Dose: 500 mg Losartan Potassium (Cozaar) 50 mg PO DAILY [facility] Last Admin: 08/22/18 08:57 Dose: 50 mg Magnesium Oxide (Mag-Ox) 400 mg PO BID [facility] Last Admin: 08/22/18 16:29 Dose: 400 mg Metformin HCl (Glucophage) 1,000 mg PO BIDWM [facility] Last Admin: 08/22/18 16:28 Dose: 1,000 mg Metoprolol Tartrate (Lopressor) 25 mg PO Q12 [facility] Last Admin: 08/22/18 21:34 Dose: 25 mg Ondansetron HCl (Zofran Inj) 4 mg IVP Q6 PRN PRN Reason: Nausea/Vomiting Last Admin: 08/20/18 02:40 Dose: 4 mg Potassium Chloride (K-Dur 20 Meq Er Tab) 20 meq PO BID [facility] Last Admin: 08/22/18 16:28 Dose: 20 meq Sitagliptin Phosphate (Januvia) 100 mg PO DAILY [facility] Last Admin: 08/22/18 08:54 Dose: 100 mg Vancomycin HCl (Vancocin (Oral/Rectal Use)) 500 mg PO Q6 [facility]; Protocol Last Admin: 08/23/18 04:03 Dose: Not Given - Labs Labs: 08/19/18 05:30 08/21/18 09:20 PT 16.2 Seconds (9.8-13.1) H 08/04/18 10:28 INR 1.4 08/04/18 10:28 APTT 35.6 Seconds (25.6-37.1) 08/04/18 10:28
[2018-08-23] MEDS: Potassium Chloride 20 mEq ER Tab PO SCH (10:13)
--- NOTE | 2018-08-23 10:17 | CP.PCM.PN ---
Subjective - Date & Time of Evaluation Date of Evaluation: 08/23/18 Time of Evaluation: 10:16 - Subjective Subjective: Nephrology Consultation Note Assessment: stable Acute renal failure/acute kidney injury related to multifactorial including sepsis required dialysis: RESOLVED Diabetes mellitus and history of hypertension history of CVA. 7 gram proteinuria on dipstick Hypokalemia, Hypomagnesemia Plan Hypertension control with meds as ordered. Monitor Input/Output will review labs when available + nephrotic range proteinuria - ? diabetic will need follow up w/ us in regards to this Office: [phone] Subjective: denies n/v Physical Examination: General Appearance: comfortable no acute distress Vitals reviewed and noted as below Head; Atraumatic, normocephalic Neck; supple no jvd Lungs: Normal respiratory rate/effort. Breath sounds bilateral reduced at bases Heart: Normal rate. s1s2 normal. No rub or gallop. Extremities: no edema. No varicose veins Neurological: Patient is awake alert follow commands. Rt hand contractures Skin: Warm and dry. Normal turgor. No rash. Abdomen: Abdomen is soft. Bowel sounds +. There is no abdominal tenderness, no guarding/rigidity no organomegaly Psych: limited insight. normal affect MSK: no joint tenderness or swelling. Labs/imaging reviewed. Family hx: no hx of CKD. Rest non-contributory Objective - Vital Signs/Intake and Output Vital Signs (last 24 hours): Temp Pulse Resp BP Pulse Ox 98.9 F 61 20 146/76 98 08/23/18 08:29 08/23/18 08:29 08/23/18 08:29 08/23/18 08:29 08/23/18 08:29 - Medications Medications: Current Medications Acetaminophen (Tylenol 325mg Tab) 650 mg PO Q6 PRN PRN Reason: Temperature Last Admin: 08/13/18 08:51 Dose: 650 mg Acetaminophen (Tylenol 325mg Tab) 650 mg PO Q6 PRN PRN Reason: Pain <5 Last Admin: 08/22/18 01:59 Dose: 650 mg Al Hydrox/Mg Hydrox/Simethicone (Maalox Plus 30 Ml) 30 ml PO Q6 PRN PRN Reason: Indigestion / Heartburn Albuterol/Ipratropium (Duoneb 3 Mg/0.5 Mg (3 Ml) Ud) 3 ml INH RQ6 [facility] Last Admin: 08/23/18 07:53 Dose: Not Given Ferrous Sulfate (Feosol) 325 mg PO TID [facility] Last Admin: 08/11/18 11:21 Dose: Not Given Furosemide (Lasix) 20 mg PO DAILY [facility] Last Admin: 08/22/18 08:55 Dose: 20 mg Furosemide (Lasix) 20 mg PO DAILY [facility] Last Admin: 08/22/18 16:30 Dose: Not Given Guaifenesin/Dextromethorphan (Robitussin Dm) 10 ml PO Q6 PRN PRN Reason: Cough Last Admin: 08/21/18 23:00 Dose: 10 ml Insulin Human Regular (Humulin R) 0 units SC ACCU-CHECK [facility]; Protocol Last Admin: 08/22/18 23:00 Dose: Not Given Levetiracetam (Keppra) 500 mg PO BID [facility] Last Admin: 08/22/18 16:31 Dose: 500 mg Losartan Potassium (Cozaar) 50 mg PO DAILY [facility] Last Admin: 08/22/18 08:57 Dose: 50 mg Magnesium Oxide (Mag-Ox) 400 mg PO BID [facility] Last Admin: 08/22/18 16:29 Dose: 400 mg Metformin HCl (Glucophage) 1,000 mg PO BIDWM [facility] Last Admin: 08/22/18 16:28 Dose: 1,000 mg Metoprolol Tartrate (Lopressor) 25 mg PO Q12 [facility] Last Admin: 08/22/18 21:34 Dose: 25 mg Ondansetron HCl (Zofran Inj) 4 mg IVP Q6 PRN PRN Reason: Nausea/Vomiting Last Admin: 08/20/18 02:40 Dose: 4 mg Potassium Chloride (K-Dur 20 Meq Er Tab) 20 meq PO BID [facility] Last Admin: 08/22/18 16:28 Dose: 20 meq Sitagliptin Phosphate (Januvia) 100 mg PO DAILY [facility] Last Admin: 08/22/18 08:54 Dose: 100 mg Vancomycin HCl (Vancocin (Oral/Rectal Use)) 500 mg PO Q6 [facility]; Protocol Last Admin: 08/23/18 04:03 Dose: Not Given - Labs Labs: 08/19/18 05:30 08/21/18 09:20 PT 16.2 Seconds (9.8-13.1) H 08/04/18 10:28 INR 1.4 08/04/18 10:28 APTT 35.6 Seconds (25.6-37.1) 08/04/18 10:28
[2018-08-23] MEDS: Magnesium Oxide 400 mg Tab UD PO SCH (10:22)
[2018-08-23] MEDS: Insulin Regular 100 units/ml SC SCH ×3 (10:25→16:41)
[2018-08-23 12:26] VITALS: BP 112/75; PULSE 60; TEMP 98.2; O2SAT 97
--- NOTE | 2018-08-27 16:27 | CP.PCM.PN ---
Subjective - Date & Time of Evaluation Date of Evaluation: 08/22/18 Time of Evaluation: 10:00 - Subjective Subjective: patient is doing a lot better . Was able to participate with therapy Has no SOB No chest pain CXR on 08/20 showed decrease in pleural effusion. Objective - Vital Signs/Intake and Output Vital Signs (last 24 hours): Temp Pulse Resp BP Pulse Ox 98.2 F 60 20 112/75 97 08/23/18 12:25 08/23/18 12:25 08/23/18 12:25 08/23/18 12:25 08/23/18 12:25 - Labs Labs: 08/19/18 05:30 08/21/18 09:20 PT 16.2 Seconds (9.8-13.1) H 08/04/18 10:28 INR 1.4 08/04/18 10:28 APTT 35.6 Seconds (25.6-37.1) 08/04/18 10:28 - Head Exam Head Exam: NORMAL INSPECTION - Eye Exam Eye Exam: Normal appearance - ENT Exam ENT Exam: Mucous Membranes Moist - Respiratory Exam Respiratory Exam: Decreased Breath Sounds - Cardiovascular Exam Cardiovascular Exam: REGULAR RHYTHM - GI/Abdominal Exam GI & Abdominal Exam: Soft Assessment and Plan (1) Acute respiratory failure with hypoxia Status: Acute (2) Aspiration pneumonia Status: Acute (3) Elevated liver enzymes Status: Acute (4) Sepsis Status: Acute (5) Toxic metabolic encephalopathy Status: Acute (6) Pulmonary congestion Status: Acute (7) Diabetes mellitus type 2 in obese Status: Acute - Assessment and Plan (Free Text) Plan: Conntinue meds Cont PT For subacute rehab eval Cont all tx. Lasix low dose
--- NOTE | 2018-08-29 01:36 | CP.PCM.DIS ---
Provider - Provider Date of Admission: 07/29/18 15:10 Attending physician: Sebastian Hardy MD Consults: 07/29/18 14:38 Critical Care Consult Stat Comment: Consulting Provider: Chilango Jerome Consulting Physician: Chilango Jerome Reason for Consult: code sepsis 07/29/18 18:55 Neurology Consult Routine Comment: Consulting Provider: Reynold Novak Consulting Physician: Reynold Novak Reason for Consult: AMS 07/29/18 20:21 Cardiology Consult Routine Comment: Consulting Provider: Jesse Dominguez Consulting Physician: Jesse Dominguez Reason for Consult: A Fib/ Elevated Troponin 07/30/18 07:55 Gastroenterology Consult Routine Comment: Consulting Provider: David Park Consulting Physician: David Park Reason for Consult: Elevated LFT's Infectious Disease Consult Routine Comment: Consulting Provider: Zheng Kan Consulting Physician: Zheng Kan Reason for Consult: Sepsis 07/30/18 10:23 Wound Care [Nursing Referral for Wound Care] Routine Comment: Physician Instructions: Reason For Exam: POA ulcer r butt 07/30/18 10:27 Pastoral Care Referral Routine Comment: Physician Instructions: Reason For Exam: No POA on admission 07/30/18 12:44 Nephrology Consult Routine Comment: Consulting Provider: Brittni Bansal Consulting Physician: Brittni Bansal Reason for Consult: salvatore 08/03/18 09:42 Pulmonology Consult Routine Comment: Consulting Provider: Saad Grier I Consulting Physician: Saad Grier I Reason for Consult: vented Time Spent in preparation of Discharge (in minutes): 30 Diagnosis - Discharge Diagnosis (1) Encephalopathy Status: Acute (2) Acute respiratory failure with hypoxia Status: Acute Priority: High (3) Hypokalemia Status: Acute (4) Hypomagnesemia Status: Acute Hospital Course - Lab Results Lab Results: Micro Results 08/13/18 14:15 Blood Blood Culture - Final NO GROWTH AFTER 5 DAYS 08/13/18 14:15 Blood Gram Stain - Final TEST NOT PERFORMED 08/14/18 06:43 Urine Random Urine Culture - Final No Growth (<1,000 CFU/ML) 08/13/18 15:45 Naris MRSA Culture (Admit) - Final MRSA NOT DETECTED 08/03/18 14:30 Sputum Induced Gram Stain - Final 08/03/18 14:30 Sputum Induced Sputum Culture - Final No growth. 07/29/18 14:15 Blood Blood Culture - Final NO GROWTH AFTER 5 DAYS 07/29/18 14:15 Blood Gram Stain - Final TEST NOT PERFORMED 07/29/18 14:40 Blood Blood Culture - Final NO GROWTH AFTER 5 DAYS 07/29/18 14:40 Blood Gram Stain - Final TEST NOT PERFORMED 07/30/18 09:48 Stool Ova and Parasite Concentrate Exam - Final 07/29/18 14:50 Stool Stool Culture - Final NO SALMONELLA, SHIGELLA OR CAMPYLOBACTER ISOLATED. 07/30/18 15:50 Naris MRSA Culture (Admit) - Final MRSA NOT DETECTED 07/29/18 14:50 Urine,Amaro Urine Culture - Final No Growth (<1,000 CFU/ML) Most Recent Lab Values WBC 6.4 K/uL (4.8-10.8) 08/19/18 05:30 RBC 3.53 Mil/uL (3.80-5.20) L 08/19/18 05:30 Hgb 9.3 g/dL (12.0-16.0) L 08/19/18 05:30 Hct 28.9 % (34.0-47.0) L 08/19/18 05:30 MCV 81.8 fl (81.0-99.0) 08/19/18 05:30 MCH 26.2 pg (27.0-31.0) L 08/19/18 05:30 MCHC 32.1 g/dL (33.0-37.0) L 08/19/18 05:30 RDW 26.7 % (11.5-14.5) H 08/19/18 05:30 Plt Count 322 K/uL (130-400) 08/19/18 05:30 MPV 10.2 fl (7.2-11.7) 08/10/18 02:55 Neut % (Auto) 88.9 % (50.0-75.0) H 08/10/18 02:55 Lymph % (Auto) 2.5 % (20.0-40.0) L 08/10/18 02:55 [place] % (Auto) 7.9 % (0.0-10.0) 08/10/18 02:55 Eos % (Auto) 0.6 % (0.0-4.0) 08/10/18 02:55 Baso % (Auto) 0.1 % (0.0-2.0) 08/10/18 02:55 Neut # (Auto) 15.9 K/uL (1.8-7.0) H 08/10/18 02:55 Lymph # (Auto) 0.4 K/uL (1.0-4.3) L 08/10/18 02:55 [place] # (Auto) 1.4 K/uL (0.0-0.8) H 08/10/18 02:55 Eos # (Auto) 0.1 K/uL (0.0-0.7) 08/10/18 02:55 Baso # (Auto) 0.0 K/uL (0.0-0.2) 08/10/18 02:55 Neutrophils % (Manual) 90 % (42-75) H 08/10/18 02:55 Lymphocytes % (Manual) 2 % (20-50) L 08/10/18 02:55 Reactive Lymphs % 1 % (0-0) H 08/02/18 06:31 Monocytes % (Manual) 7 % (0-10) 08/10/18 02:55 Eosinophils % (Manual) 1 % (0-7) 08/10/18 02:55 Nucleated RBC % 1 % (0-0) H 08/02/18 06:31 Platelet Estimate Normal (NORMAL) 08/10/18 02:55 Plt Clumps, EDTA Present 08/02/18 06:31 Large Platelets Present 07/29/18 13:48 Hypochromasia (manual) Slight 08/10/18 02:55 Poikilocytosis (manual Slight 07/29/18 13:48 Anisocytosis (manual) Slight 08/10/18 02:55 Microcytosis (manual) Slight 08/02/18 06:31 Macrocytosis (manual) Slight 07/29/18 13:48 Target Cells Slight 07/30/18 04:50 Tear Drop Cells Slight 07/29/18 13:48 Ovalocytes Slight 08/10/18 02:55 Stomatocytes Slight 08/10/18 02:55 Jeannette Cells Slight 07/30/18 04:50 PT 16.2 Seconds (9.8-13.1) H 08/04/18 10:28 INR 1.4 08/04/18 10:28 APTT 35.6 Seconds (25.6-37.1) 08/04/18 10:28 pCO2 35 mm/Hg (35-45) 08/11/18 09:29 pO2 99 mm/Hg (80-100) 08/11/18 09:29 HCO3 29.8 mmol/L (21-28) H 08/11/18 09:29 ABG pH 7.53 (7.35-7.45) H 08/11/18 09:29 ABG Total CO2 30.3 mmol/L (22-28) H 08/11/18 09:29 ABG O2 Saturation 100.1 % (95-98) H 08/11/18 09:29 ABG O2 Content 13.5 ML/dL (15-23) L 08/08/18 05:00 ABG Base Excess 6.2 mmol/L (-2.0-3.0) H 08/11/18 09:29 ABG Hemoglobin 9.9 g/dL (11.7-17.4) L 08/08/18 05:00 ABG Carboxyhemoglobin 2.0 % (0.5-1.5) H 08/08/18 05:00 POC ABG HHb (Measured) 0.4 % (0.0-5.0) 08/08/18 05:00 ABG Methemoglobin 1.8 % (0.0-3.0) 08/08/18 05:00 ABG O2 Capacity 13.6 mL/dL (16-24) L 08/08/18 05:00 [place] Test Yes 08/11/18 09:29 ABG Potassium 3.2 mmol/L (3.6-5.2) L 08/11/18 09:29 VBG pH 7.15 (7.32-7.43) L* 07/29/18 16:48 VBG pCO2 60 mmHg (40-60) 07/29/18 16:48 VBG HCO3 16.6 mmol/L 07/29/18 16:48 VBG Total CO2 22.7 mmol/L (22-28) 07/29/18 16:48 VBG O2 Sat (Calc) 54.4 % (40-65) 07/29/18 16:48 VBG Base Excess -8.7 mmol/L (0.0-2.0) L 07/29/18 16:48 VBG Potassium 4.2 mmol/L (3.6-5.2) 07/29/18 16:48 A-a O2 Difference 142.0 mm/Hg 08/11/18 09:29 Hgb O2 Saturation 95.7 % (95.0-98.0) 08/08/18 05:00 Sodium 150.0 mmol/L (132-148) H 08/11/18 09:29 Chloride 119.0 mmol/L (98-107) H 08/11/18 09:29 Glucose 153 mg/dL (65-105) H 08/11/18 09:29 Lactate 1.3 mmol/L (0.7-2.1) 08/11/18 09:29 Vent Mode Hfnc 08/11/18 09:29 Mechanical Rate 14 08/07/18 04:00 FiO2 40.0 % 08/11/18 09:29 Tidal Volume 450 08/07/18 04:00 PEEP 5 08/07/18 14:32 Pressure Support 10 08/07/18 14:32 Blood Gas Comments Ra 21 07/29/18 13:36 Crit Value Called To Ida bojorquez rn 07/29/18 23:08 Crit Value Called By Elena 07/29/18 23:08 Crit Value Read Back Y 07/29/18 23:08 Blood Gas Notified Time 2320 07/29/18 23:08 Sodium 142 mmol/l (132-148) 08/21/18 09:20 Potassium 3.8 MMOL/L (3.6-5.0) 08/21/18 09:20 Chloride 105 mmol/L (98-107) 08/21/18 09:20 Carbon Dioxide 28 mmol/L (22-30) 08/21/18 09:20 Anion Gap 13 (10-20) 08/21/18 09:20 BUN 7 mg/dl (7-17) 08/21/18 09:20 Creatinine 0.8 mg/dl (0.7-1.2) 08/21/18 09:20 Est GFR ( Amer) > 60 08/21/18 09:20 Est GFR (Non-Af Amer) > 60 08/21/18 09:20 POC Glucose (mg/dL) 121 mg/dL (65-110) H 08/23/18 15:55 Random Glucose 129 mg/dL (65-105) H 08/21/18 09:20 Hemoglobin A1c 6.2 % (4.2-6.5) 08/09/18 04:20 Lactic Acid 1.4 mmol/L (0.7-2.1) 08/02/18 16:16 Uric Acid 6.3 mg/Dl (2.2-7.5) 08/08/18 05:00 Calcium 9.2 mg/dL (8.4-10.2) 08/21/18 09:20 Phosphorus 3.4 mg/dl (2.5-4.5) 08/21/18 09:20 Magnesium 1.9 MG/DL (1.6-2.3) 08/21/18 15:02 Iron 29 ug/dL (37-170) L 08/09/18 04:20 TIBC 268 ug/dL (250-450) 08/09/18 04:20 % Saturation 11 % (20-55) L 08/09/18 04:20 Total Bilirubin 1.0 mg/dl (0.2-1.3) 08/21/18 09:20 Direct Bilirubin 0.6 mg/ml (0.0-0.4) H 08/04/18 10:45 AST 33 U/L (14-36) 08/21/18 09:20 ALT 45 U/L (9-52) 08/21/18 09:20 Alkaline Phosphatase 103 U/L (38-126) 08/21/18 09:20 Ammonia 30 umo/L (11-51) 07/30/18 16:23 Total Creatine Kinase 52 U/L (30-135) 08/04/18 06:00 Troponin I 3.6000 ng/mL (0.00-0.120) H* 07/30/18 04:50 NT-Pro-B Natriuret Pep 1520 pg/ml (0-900) H 08/19/18 05:30 Total Protein 7.7 G/DL (6.3-8.2) 08/21/18 09:20 Albumin 3.2 g/dL (3.5-5.0) L D 08/21/18 09:20 Globulin 4.5 gm/dL (2.2-3.9) H 08/21/18 09:20 Albumin/Globulin Ratio 0.7 (1.0-2.1) L 08/21/18 09:20 Triglycerides 97 mg/DL (0-149) 08/09/18 04:20 Cholesterol 106 mg/dL (0-199) 08/09/18 04:20 LDL Cholesterol Direct 57 mg/dL (0-129) 08/09/18 04:20 HDL Cholesterol 33 MG/DL (30-70) 08/09/18 04:20 Vitamin B12 901 pg/mL (239-931) 08/09/18 04:20 Procalcitonin 2.01 NG/ML (0.19-0.49) H 08/08/18 05:00 TSH 3rd Generation 5.80 mIU/ML (0.46-4.68) H 08/13/18 14:15 Arterial Blood Potassium 3.2 mmol/L (3.6-5.2) L 08/11/18 09:29 Venous Blood Potassium 4.2 mmol/L (3.6-5.2) 07/29/18 16:48 Urine Color [place] (YELLOW) 07/29/18 14:50 Urine Clarity Turbid (Clear) 07/29/18 14:50 Urine pH 6.0 (5.0-8.0) 07/29/18 14:50 Ur Specific [place] 1.013 (1.003-1.030) 07/29/18 14:50 Urine Protein 100 mg/dL (NEGATIVE) 07/29/18 14:50 Urine Glucose (UA) Neg mg/dL (NEGATIVE) 07/29/18 14:50 Urine Ketones Negative mg/dL (NEGATIVE) 07/29/18 14:50 Urine Blood Moderate (NEGATIVE) 07/29/18 14:50 Urine Nitrate Negative (NEGATIVE) 07/29/18 14:50 Urine Bilirubin Negative (NEGATIVE) 07/29/18 14:50 Urine Urobilinogen 4.0 mg/dL (0.2-1.0) H 07/29/18 14:50 Ur Leukocyte Esterase Neg Brittney/uL (Negative) 07/29/18 14:50 Urine RBC (Auto) 6 /hpf (0-3) H 07/29/18 14:50 Urine Microscopic WBC 4 /hpf (0-5) 07/29/18 14:50 Ur Squamous Epith Cells 2 /hpf (0-5) 07/29/18 14:50 Amorphous Sediment Few /ul (<OCC) H 07/29/18 14:50 Urine Bacteria Occ (<OCC) H 07/29/18 14:50 Hyaline Casts 11-20 /hpf (0-2) H 07/29/18 14:50 Urine Myoglobin TNP 08/04/18 11:00 Urine Osmolality 330 mosm/kg (300-1000) 08/04/18 11:35 Ur Random Creatinine 52.4 mg/dL 08/04/18 11:35 U Random Total Protein 377.0 mg/dL (0.0-12.0) H 08/04/18 11:35 Ur Random Sodium 58 mmol/L 07/31/18 09:51 Random Vancomycin 10.6 ug/mL 08/03/18 04:50 Urine Opiates Screen Negative (NEGATIVE) 07/29/18 14:50 Urine Methadone Screen Negative (NEGATIVE) 07/29/18 14:50 Ur Barbiturates Screen Negative (NEGATIVE) 07/29/18 14:50 Ur Phencyclidine Scrn Negative (NEGATIVE) 07/29/18 14:50 Ur Amphetamines Screen Negative (NEGATIVE) 07/29/18 14:50 U Benzodiazepines Scrn Negative (NEGATIVE) 07/29/18 14:50 U Oth Cocaine Metabols Negative (NEGATIVE) 07/29/18 14:50 U Cannabinoids Screen Negative (NEGATIVE) 07/29/18 14:50 Alcohol, Quantitative < 10 mg/dl (0-10) 07/29/18 13:48 JOSEE Screen Negative (Negative) 08/04/18 11:35 ANCA Screen Negative (NEGATIVE) 08/05/18 04:00 c-ANCA Titer TNP 08/05/18 04:00 Proteinase 3 (PR3) <1.0 AI (<1.0) 08/05/18 04:00 p-ANCA Titer TNP 08/05/18 04:00 Atypical p-ANCA Titer TNP 08/05/18 04:00 Myeloperoxidase Ab <1.0 AI (<1.0) 08/05/18 04:00 Glomerular Base Mem IgG <1.0 AI (<1.0) 08/05/18 04:00 RPR Nonreactive (NONREACTIVE) 07/31/18 05:14 C. difficile Ag & Toxin Negative (NEGATIVE) 08/12/18 13:42 E. histolytica Antigen TNP 07/30/18 19:01 Enterovirus Source Stool 07/30/18 19:01 Enterovirus RNA (PCR) Not detected (Not Detected) 07/30/18 19:01 Hepatitis A IgM Ab Negative (NEGATIVE) 07/30/18 16:23 Hep Bs Antigen Negative (NEGATIVE) 07/30/18 16:23 Hep Bs Antibody, Quant <5 mIU/mL (>or=10) L 08/03/18 12:20 Hep B Core IgM Ab Negative (NEGATIVE) 07/30/18 16:23 Hepatitis C Antibody Negative (NEGATIVE) 07/30/18 16:23 HIV 1&2 Antibody Screen Negative (NEGATIVE) 07/30/18 16:23 Influenza Typ A,B (EIA) Negative for flu a/b (NEGATIVE) 07/30/18 15:50 H.influenzae Type B Ag Negative (NEGATIVE) 07/30/18 15:30 Ur L.pneumophila Ag Negative (NEGATIVE) 08/11/18 08:37 N.meningitidis ACY/W135 Negative (NEGATIVE) 07/30/18 15:30 N.meningi B/E.coli K1 Ag Negative (NEGATIVE) 07/30/18 15:30 Group B Strep Antigen Negative (NEGATIVE) 07/30/18 15:30 S. pneumoniae Antigen Negative (NEGATIVE) 07/30/18 15:30 Beta-(1,3)-D-Glucan 109 pg/mL (<60) H 08/05/18 04:40 B-(1,3)-D-Glucan Intrp Positive H 08/05/18 04:40 - Hospital Course Hospital Course: The pt was admitted for sepsis. She developed respiratory failure and encephalopathy, requiring mechanical intubation. She was extubated and showed improvement, then was stable for transfer to the telemetry unit. Clinically she improved and was discharged [facility]. Discharge Exam - Head Exam Head Exam: NORMAL INSPECTION, NORMOCEPHALIC - Eye Exam Eye Exam: EOMI, Normal appearance, PERRL Pupil Exam: NORMAL ACCOMODATION, PERRL - ENT Exam ENT Exam: Mucous Membranes Moist - Neck Exam Neck exam: Full Rom - Respiratory Exam Respiratory Exam: Decreased Breath Sounds - Cardiovascular Exam Cardiovascular Exam: REGULAR RHYTHM, +S1, +S2 - GI/Abdominal Exam GI & Abdominal Exam: Normal Bowel Sounds, Tenderness, Unremarkable - Extremities Exam Extremities exam: normal inspection - Back Exam Back exam: NORMAL INSPECTION - Neurological Exam Neurological exam: Alert - Psychiatric Exam Psychiatric exam: Normal Mood - Skin Skin Exam: Dry, Normal Color, Warm Discharge Plan - Follow Up Plan Condition: CRITICAL Disposition: TRANSF TO SNF Instructions: Sepsis in Adults, Sepsis (DC), Sepsis (GEN), Leukocytosis (DC), Leukocytosis (GEN) Additional Instructions: Needs assistance w/ all daily activities. Fall Precaution. Right side flaccid. Skin Care. Referrals: Jesse Dominguez MD [Staff Provider] - Zheng Kan MD [Staff Provider] - Reynold Novak MD [Medical Doctor] - David Park MD [Staff Provider] - Saad Grier MD [Staff Provider] -
--- NOTE | 2018-08-29 21:12 | PQF ---
PROVIDER RESPONSE TEXT: No CKD. Patient had Acute Kidney Injury REVIEWER QUERY TEXT: Kidney Disease, Chronic CKD Stage Does pt have a diagnosis of Chronic Kidney Disease (CKD) ?. Please specify the disease stage (includ es probable or suspected) Such as: -- Chronic kidney disease Stage 1 -- Chronic kidney disease Stage 2 -- Chronic kidney disease Stage 3 -- Chronic kidney disease Stage 4 -- Chronic kidney disease Stage 5 -- Chronic kidney disease Stage 5, requiring dialysis -- End Stage Renal Disease -- Other, please specify Stages are defined by the [employer] as follows: CKD Stage I GFR >= 90 ml / min per 1.73 m2 and persistent albuminuria CKD Stage 2 GFR between 60 and 89 with persistent albuminuria CKD Stage 3 GFR between 30 and 59 CKD Stage 4 GFR between 15 and 29 CKD Stage 5 GFR between <15 or End Stage Renal Disease The patient's Clinical Indicators include: JORGE A stage 3 documented 07/[address] Jerome ESRD documented 08/[address] Grier Query created by: Nancy Hines on 08/25/2018 12:07 PM Electronically signed by: Sebastian Hardy 08/29/2018 9:09 PM
--- NOTE | 2018-08-29 21:13 | PQF ---
PROVIDER RESPONSE TEXT: Provider was unable to determine a response for this query. REVIEWER QUERY TEXT: Rule Out Sepsis Clarification Sepsis is documented in the Medical Record. Please clarify if known source: The patient's Clinical Indicators include: Sepsis source unclear at this time is documented in medical record. Query created by: Nancy Hines on 08/25/2018 12:20 PM Electronically signed by: Sebastian Hardy 08/29/2018 9:09 PM
== END 2018-08-23 17:40 | DRG 870 ==
LOC: H.ER 13:26 → H.ERHOLD 15:10 → H.ICU/CCU 18:31 → H.TEL 08-12 18:47
PROVIDERS: ADMIT Family Medicine; ATTEND Family Medicine
PROC: 05HM33Z Insertion of Infusion Device into Right Internal Jugular Vein, Percutaneous Approach (ICD-10-PCS; 2018-07-30)
PROC: 3E0234Z Introduction of Serum, Toxoid and Vaccine into Muscle, Percutaneous Approach (ICD-10-PCS; principal; 2018-08-01)
PROC: 02HV33Z Insertion of Infusion Device into Superior Vena Cava, Percutaneous Approach (ICD-10-PCS; 2018-08-01)
PROC: 5A1955Z Respiratory Ventilation, Greater than 96 Consecutive Hours (ICD-10-PCS; 2018-08-02)
PROC: 0BH17EZ Insertion of Endotracheal Airway into Trachea, Via Natural or Artificial Opening (ICD-10-PCS; 2018-08-02)
PROC: 5A1D70Z Performance of Urinary Filtration, Intermittent, Less than 6 Hours Per Day (ICD-10-PCS; 2018-08-04)
DX: A41.9 Sepsis, unspecified organism (principal); N17.0 Acute kidney failure with tubular necrosis; J69.0 Pneumonitis due to inhalation of food and vomit; K72.00 Acute and subacute hepatic failure without coma; J96.01 Acute respiratory failure with hypoxia; G92 Toxic encephalopathy; I21.4 Non-ST elevation (NSTEMI) myocardial infarction; G93.1 Anoxic brain damage, not elsewhere classified; I69.351 Hemiplegia and hemiparesis following cerebral infarction affecting right dominant side; K56.7 Ileus, unspecified; I48.92 Unspecified atrial flutter; Z99.11 Dependence on respirator [ventilator] status; E87.0 Hyperosmolality and hypernatremia; Z95.1 Presence of aortocoronary bypass graft; Z87.891 Personal history of nicotine dependence; Z88.0 Allergy status to penicillin; Z91.040 Latex allergy status; Z23 Encounter for immunization; J45.909 Unspecified asthma, uncomplicated; I25.2 Old myocardial infarction; Z79.82 Long term (current) use of aspirin; Z79.84 Long term (current) use of oral hypoglycemic drugs; E11.649 Type 2 diabetes mellitus with hypoglycemia without coma; E11.65 Type 2 diabetes mellitus with hyperglycemia; I25.10 Atherosclerotic heart disease of native coronary artery without angina pectoris; E66.9 Obesity, unspecified; Z68.31 Body mass index [BMI] 31.0-31.9, adult; R65.20 Severe sepsis without septic shock; E83.39 Other disorders of phosphorus metabolism; I48.91 Unspecified atrial fibrillation; I69.398 Other sequelae of cerebral infarction; G93.89 Other specified disorders of brain; E79.0 Hyperuricemia without signs of inflammatory arthritis and tophaceous disease; J32.4 Chronic pansinusitis; E83.42 Hypomagnesemia; E87.6 Hypokalemia; D64.9 Anemia, unspecified; G47.33 Obstructive sleep apnea (adult) (pediatric); E11.21 Type 2 diabetes mellitus with diabetic nephropathy; R19.7 Diarrhea, unspecified; Z78.1 Physical restraint status